=== PATIENT | female | born 1945 | race Caucasian/White ===

== ENCOUNTER 2016-11-15 20:58 | Inpatient (IN) | payer MEDICARE, BC ==
[~2016-11-15] VITALS: Ht 152.4 cm; Wt 59.4 kg
[~2016-11-15 20:58] MED LIST: ATEN50TA PO; BENZ2TAB5 PO; CARB1TAB20 PO; CHOL10003 PO; FAMO20TA5 PO; FURO-68 PO; FURO20TA3 PO; LEVO500T8 PO; LISI10TA2 PO; OLAN5TAB9 PO; POTA10CA PO; SERT25TA4 PO
--- NOTE | 2016-11-15 21:27 | PHYS DOC ---
Past Medical History Past Medical History: Anxiety, Depression, Hypertension, Schizophrenia, Other Additional Past Medical Histor: Dysphagia - resolved., poss chf, [facility] Past Surgical History: Other Additional Past Surgical Histo: Peg tube placement and removal, bilat pedal edema Alcohol Use: None Drug Use: None Adult General Chief Complaint Chief Complaint: VAGINAL BLEEDING HPI HPI Patient is a 70 year old female who presents with vaginal bleeding. Patient reports onset of bleeding about one hour prior to arrival. EMS stated at least 500 mL of blood had pooled in depends underwear. Denies associated abdominal pain. Denies fevers or chills, nausea or vomiting, diarrhea, dysuria or hematuria. Initially she thought she might be having blood in her stool. She has previous history of vaginal bleeding with admission here about one year ago. At that time the records indicate there was concern for endometrial cancer. Patient unsure of ultimate findings. Denies use of blood thinners. PCP is Dr. Luz. Review of Systems Review of Systems Constitutional: Denies fever or chills Eyes: Denies change in visual acuity HENT: Denies nasal congestion or sore throat Respiratory: Denies cough or shortness of breath Cardiovascular: Denies chest pain or edema GI: Denies abdominal pain, nausea, vomiting, bloody stools or diarrhea : Denies dysuria or hematuria , reports vaginal bleeding Musculoskeletal: Denies back pain or joint pain Integument: Denies rash or skin lesions Neurologic: Denies headache, focal weakness or sensory changes Current Medications Current Medications Current Medications Medications (Trade) Dose Ordered Sig/Zacarias Start Time Stop Time Status Last Admin Dose Admin Sodium Chloride (Iv Sodium Chloride 0.9% 500ml Bag) 500 ml @ 500 mls/hr 1X ONCE 11/15/16 21:30 11/15/16 22:29 DC 11/15/16 21:30 500 MLS/HR Allergies Allergies Allergies Coded Allergies Type Severity Reaction Last Updated Verified No Known Drug Allergies 06/03/16 No Physical Exam Physical Exam Constitutional: Well developed, well nourished, no acute distress, non-toxic appearance. tardive dyskinesia. HENT: Normocephalic, atraumatic, bilateral external ears normal, oropharynx moist, nose normal. Eyes: conjunctiva normal, no discharge. Neck: supple, no stridor. Cardiovascular: RRR 70s at time of my exam, no murmurs, no edema. Lungs & Thorax: LCTAB, no wheezing, no respiratory distress. Abdomen: soft, nontender, nondistended. : unable to comply with pelvic exam but there is obvious bleeding from the vagina. Skin: Warm, dry, no erythema, no rash. Back: No tenderness, no CVA tenderness. Extremities: No tenderness, no edema. Neurologic: tardive dyskinesia. Alert and oriented X 3, no focal deficits noted. Psychologic: Affect normal, judgement normal, mood normal. Current Patient Data Vital Signs Vital Signs Date Time Temp Pulse Resp B/P Pulse Ox O2 Delivery O2 Flow Rate FiO2 11/15/16 20:58 97.3 102 24 114/74 98 Nasal Cannula 2 97.3 Lab Values Laboratory Tests Test 11/15/16 21:18 11/15/16 21:25 Urine Collection Type Unknown Urine Color Yellow Urine Clarity Turbid Urine pH 8.0 Urine Specific [place] 1.015 Urine Protein 30mg/dL (NEG-TRACE) Urine Glucose (UA) Negativemg/dL (NEG) Urine Ketones (Stick) Negativemg/dL (NEG) Urine Blood Large (NEG) Urine Nitrite Negative (NEG) Urine Bilirubin Negative (NEG) Urine Urobilinogen Dipstick 0.2mg/dL (0.2 mg/dL) Urine Leukocyte Esterase Large (NEG) Urine RBC 11-20/HPF (0-2) Urine WBC 11-20/HPF (0-4) Urine Bacteria Many/HPF (0-FEW) White Blood Count 12.6x10^3/uL (4.0-11.0) H Red Blood Count 4.72x10^6/uL (3.50-5.40) Hemoglobin 13.7g/dL (12.0-15.5) Hematocrit 42.0% (36.0-47.0) Mean Corpuscular Volume 89fL (79-100) Mean Corpuscular Hemoglobin 29pg (25-35) Mean Corpuscular Hemoglobin Concent 33g/dL (31-37) Red Cell Distribution Width 13.8% (11.5-14.5) Platelet Count 296x10^3/uL (140-400) Neutrophils (%) (Auto) 77% (31-73) H Lymphocytes (%) (Auto) 16% (24-48) L Monocytes (%) (Auto) 6% (0-9) Eosinophils (%) (Auto) 2% (0-3) Basophils (%) (Auto) 1% (0-3) Neutrophils # (Auto) 9.6x10^3uL (1.8-7.7) H Lymphocytes # (Auto) 2.0x10^3/uL (1.0-4.8) Monocytes # (Auto) 0.7x10^3/uL (0.0-1.1) Eosinophils # (Auto) 0.2x10^3/uL (0.0-0.7) Basophils # (Auto) 0.1x10^3/uL (0.0-0.2) Prothrombin Time 13.1SEC (11.7-14.0) Prothrombin Time INR 1.1 (0.8-1.1) PTT 34SEC (24-38) Stool Occult Blood Positive (NEG) Sodium Level 142mmol/L (136-145) Potassium Level 5.1mmol/L (3.5-5.1) Chloride Level 106mmol/L (98-107) Carbon Dioxide Level 28mmol/L (21-32) Anion Gap 8 (6-14) Blood Urea Nitrogen 11mg/dL (7-20) Creatinine 0.9mg/dL (0.6-1.0) Estimated GFR (Cockcroft-Gault) 61.5 BUN/Creatinine Ratio 12 (6-20) Glucose Level 137mg/dL (70-99) H Calcium Level 9.8mg/dL (8.5-10.1) Total Bilirubin 0.3mg/dL (0.2-1.0) Aspartate Amino Transferase (AST) 23U/L (15-37) Alanine Aminotransferase (ALT) 16U/L (14-59) Alkaline Phosphatase 79U/L (46-116) Total Protein 7.7g/dL (6.4-8.2) Albumin 3.1g/dL (3.4-5.0) L Albumin/Globulin Ratio 0.7 (1.0-1.7) L Laboratory Tests 11/15/16 21:25 Laboratory Tests 11/15/16 21:25 EKG EKG [] Radiology/Procedures Radiology/Procedures [] Course & Med Decision Making Course & Med Decision Making Pertinent Labs and Imaging studies reviewed. (See chart for details) Patient presents with postmenopausal vaginal bleeding. Fecal occult was positive on exam clearly the source appears to be vaginal. Hemoglobin was stable , minimal ongoing blood loss, vitals within normal limits. I do believe she requires admission due to inability to care for herself or identify worsening clinical condition requiring reevaluation. Discussed with Dr. James who had seen the patient during prior admission. He recommended transfer to [facility] as additional workup had been completed at that facility. I discussed with the on-call physician for her gynecology/oncology who recommended no indication for transfer at this time. Discussed with Dr. Tolliver who agrees to admit to inpatient status. Patient is admitted in stable condition. [] Dragon Disclaimer Dragon Disclaimer This electronic medical record was generated, in whole or in part, using a voice recognition dictation system. Departure Departure Impression: Primary Impression: Vaginal bleeding Disposition: ADMITTED INPATIENT Admitting Physician: Alka Tolliver Condition: STABLE Referrals: NON,STAFF (PCP) SOHA CAMPOS MD Nov 15, 2016 21:27
[2016-11-15] MEDS ORDERED: IV NORMAL SALINE 500ML BAG 500 ML IV ONE (21:30)
[2016-11-15 21:41] LABS: BASO # 0.1 x10^3/uL (0.0-0.2); BASO % 1 % (0-3); EOS % 2 % (0-3); HEMOGLOBIN 13.7 g/dL (12.0-15.5); LYMPH % 16 % (24-48); MEAN CORPUSCULAR HEMOGLOBIN 29 pg (25-35); MEAN CORPUSCULAR HGB CONC 33 g/dL (31-37); MEAN CORPUSCULAR VOLUME 89 fL (79-100); MONO % 6 % (0-9); NEUT % 77 % (31-73); PLATELET COUNT 296 x10^3/uL (140-400); RED BLOOD COUNT 4.72 x10^6/uL (3.50-5.40); RED CELL DISTRIBUTION WIDTH 13.8 % (11.5-14.5); WHITE BLOOD COUNT 12.6 x10^3/uL (4.0-11.0)
[2016-11-15 21:43] LABS: BILIRUBIN,URINE NEGATIVE (NEG); GLUCOSE,URINE NEGATIVE (NEG); NITRITE,URINE NEGATIVE (NEG); PROTEIN,URINE 30 mg/dL (NEG-TRACE); UROBILINOGEN,URINE 0.2 mg/dL (0.2 mg/dL)
[2016-11-15 21:49] LABS: CALCIUM 9.8 mg/dL (8.5-10.1); CREATININE 0.9 mg/dL (0.6-1.0); GFR 61.5; POTASSIUM 5.1 mmol/L (3.5-5.1)
[2016-11-15 21:51] LABS: INR 1.1 (0.8-1.1); PROTHROMBIN TIME PATIENT 13.1 SEC (11.7-14.0)
[2016-11-15 21:54] LABS: NEG OBC FOB NEG; POS OBC FOB POS
[2016-11-15 21:55] LABS: ALBUMIN 3.1 g/dL (3.4-5.0); ALBUMIN/GLOBULIN RATIO 0.7 (1.0-1.7); TOTAL BILIRUBIN 0.3 mg/dL (0.2-1.0); TOTAL PROTEIN 7.7 g/dL (6.4-8.2)
[2016-11-15 22:21] LABS: BACTERIA,URINE MANY /HPF (0-FEW)
--- NOTE | 2016-11-15 23:05 | RAD ---
PROCEDURE Pelvic ultrasound to include transabdominal and transvaginal imaging 11/15/2016 HISTORY Heavy vaginal bleeding. The patient is postmenopausal. TECHNIQUE Using the distended urinary bladder as a sonographic window, a real-time ultrasound examination of the pelvis was performed digitally in attempt to better evaluate the uterus and adnexa, a transvaginal ultrasound study was performed. Multiple images were obtained. FINDINGS Comparison study is dated 11/29/2015. The uterus is enlarged. It measures 14.7 x 12.2 x 10.0 centimeters in longitudinal, transverse, and AP dimensions. The uterus is very heterogeneous which may reflect diffuse fibroid involvement. A well-defined endometrial echo complex is not visualized. Fluid and echogenic debris which likely reflects blood products are seen within the cervix. Neither ovary is visualized. No adnexal mass is seen. No free fluid is noted. IMPRESSION The uterus is enlarged and heterogeneous suggestive of diffuse fibroid involvement. The endometrial echo complex is not well-defined as outlined above. Electronically signed by: Jarred Hill MD (Nov 15, 2016 23:04:32)
[2016-11-15] MEDS ORDERED: ONDANSETRON PF 4 MG/2 ML VIAL. IV PRN (23:45)
[2016-11-15] MEDS ORDERED: MORPHINE SULFATE 2 MG/ML DISP.SYRIN. IV PRN (23:45)
[2016-11-15] MEDS ORDERED: ACETAMINOPHEN 325 MG TABLET. PO PRN (23:45)
[2016-11-16] VITALS (7 sets, daily range): BP systolic 94–128; BP diastolic 48–63
--- NOTE | 2016-11-16 00:05 | ACF ---
Admission Forms Criteria OBSTETRIC AND GYNECOLOGIC DISEASE ED [facility] Clinical Indications for Admission to Inpatient Care (Place 'X' for any and all applicable criteria): Hospital admission is needed for appropriate care of the patient because of 1 or more of the following (1)(2)(3): [ ]I. Hemodynamic instability, as indicated by 1 or more of the following (1)( 2)(3)(4)(5): [ ]a) Vital signs or other findings not as expected for chronic patient condition or baseline [ ]b) Instability indicated by 1 or more of the following: [ ]i) Hypotension [ ]ii) Symptomatic tachycardia unresponsive to treatment (eg, analgesia, fluids, sedation as indicated) [ ]iii) Inadequate perfusion indicated by 1 or more of the following: [ ]A. Lactic acidosis (greater than 2 mmol/ L) [ ]B. New abnormal capillary refill ( greater than 3 seconds) [ ]C. Reduced urine output [ ]D. New altered mental status [ ]iv) Orthostatic vital sign changes unresponsive to treatment (eg, fluids) [ ]v) Multiple IV fluid boluses required to maintain adequate blood pressure or perfusion [ ]vi) IV inotropic or vasopressor medication required to maintain adequate blood pressure or perfusion [ ]II. Obstetric infection requiring hospitalization indicated by 1 or more of the following(13)(14): [ ]a) Chorioamnionitis [ ]b) Endometritis (except mild endometritis) [ ]c) Pelvic abscess [ ]d) Peritonitis [ ]e) Septic pelvic thrombophlebitis [ ]III. Amniotic fluid or pulmonary embolism(4)(5)(6) [ ]IV. Suspected peritonitis or ectopic requiring monitoring beyond scope of 24 hours or observation care(7)(8) [ ]V. compromise requiring hospitalization indicated by ALL of the following(9)(10): [ ]a) compromise indicated by 1 or more of the following(11): [ ]i) Abnormal heart rate monitoring [ ]ii) Abnormal contraction stress test [ ]iii) Abnormal biophysical profile [ ]iv) Abnormal Doppler flow in vessels (ie, Doppler velocimetry) (12) [ ]b) Persistence of compromise indicators during evaluation and observation monitoring [ ]. Ovarian hyperstimulation syndrome requiring hospitalization[A] indicated by ALL of the following(15): [ ]a) Recent ovarian stimulation with gonadotropins, or evidence on ultrasound of spontaneous emergence of large number of ovarian follicles [ ]b) Evidence of severe ovarian hyperstimulation syndrome indicated by 1 or more of the following: [ ]i) Abdominal pain unresponsive to oral therapy [ ]ii) Acute respiratory distress syndrome [ ]iii) Electrolyte imbalance ( eg, hyponatremia, hyperkalemia) [ ]iv) Elevated liver enzymes [ ]v) Evidence of thromboembolism [ ]vi) Hemoconcentration (hematocrit greater than 45 % (0.45)) [ ]vii) Inability to maintain oral intake adequate to prevent hemoconcentration [ ]viii) Marked hypotension from baseline (eg, SBP 20 mmHg below patients usual pressure) [ ]ix) Oliguria or anuria [ ]x) Ovarian torsion [ ]xi) Pleural or pericardial effusion on x-ray or echocardiogram [ ]xii) Rapid increase in serum creatinine to greater than 1.2 mg/dL (106 micromoles/L) or creatinine clearance less than 50 mL/min/1.73m2 (0.84 mL/ sec/1.73m2) [ ]xiii) Ruptured ovarian cyst with hemorrhage [ ]xiv) Severe abdominal pain or peritoneal signs [ ]xv) Tense ascites that cannot be managed with paracentesis in outpatient setting [ ]VII.Pelvic infection requiring hospitalization indicated by 1 or more of the following (16): [ ]a) Outpatient treatment has failed or is not appropriate (eg, inpatient monitoring required) [ ]b) Pelvic abscess [ ]c) Surgical emergency cannot be excluded (eg, rigid abdomen) [ ]d) Vomiting precluding outpatient and observation care management VIII. loss complications requiring inpatient medical treatment indicated by 1 or more of the following (4)(7)(9): [ ]a) Fever [ ]b) Peritonitis [ ]c) Sepsis [ ]d) Severe abdominal pain [ ]IX. or patient requiring monitoring for severe heart failure, pulmonary disease, or other comorbid condition (eg, peripartum cardiomyopathy) (4)(17) [ ]X. patient with rupture of membranes requiring hospitalization indicated by ANY ONE of the following: [ ]a) Chorioamnionitis, cloudy amniotic fluid, or other evidence of infection [ ]b) compromise or other need for monitoring (11) [ ]c) Gestation longer than 23 weeks and ANY ONE of the following: [ ]i) Abnormal (noncephalic) presentation [ ]ii) Inadequate home environment (eg, home too far from hospital, unable to rapidly return to hospital) [ ]d) Temperature greater than 100.4 degrees F (38 degrees C)( oral) [ ]e) Threatened labor requiring monitoring beyond scope (eg, over 24 hours) of observation Care [ ] XI. complications, including severe lacerations, infections, or retained placenta (19) [ ] XII.Uterine bleeding with high-risk features indicated by ANY ONE of the following (4): [ ]a) Active major hemorrhage (eg, hemorrhage) [ ]b) Coagulopathy with active bleeding [ ]c) Gestational trophoblastic disease (eg, molar ) (20 ) [ ]d) (longer than 23 weeks) and ANY ONE of the following: [ ]i) Pain [ ]ii) Placental abruption, known or suspected [ ]iii) Placenta accrete, known or suspected(21) [ ]iv) Placenta previa, known or suspected [ ]v) Vasa previa [ ]e) Severe anemia [X]XIII. Obstetric or Gynecologic Disease, condition or symptom for which ANY ONE of the following: [X]a) Emergency and observation care have failed or are not considered appropriate ( Also use General Criteria: Observation Care Criteria as appropriate) [ ]b) Presence of a General Admission Criteria or Pediatric General Admission Criteria The original [facility] [employer] content created by [facility] [employer] has been revised. The portions of the content which have been revised are identified through the use of italic text or in bold, and [facility] has neither reviewed nor approved the modified material.All other unmodified content is copyright [facility]. Please see references footnoted in the original [facility] edition 2016 Admission Criteria Met?: Yes GERDA RAMÍREZ Nov 16, 2016 00:05
[2016-11-16] MEDS ORDERED: CEFTRIAXONE 1GM IVPB FOR OMNI 50 ML IV ONE (01:00)
[2016-11-16 05:07] LABS: BASO # 0.1 x10^3/uL (0.0-0.2); BASO % 1 % (0-3); EOS % 2 % (0-3); HEMOGLOBIN 11.8 g/dL (12.0-15.5); LYMPH # 2.1 x10^3/uL (1.0-4.8); LYMPH % 20 % (24-48); MEAN CORPUSCULAR HEMOGLOBIN 29 pg (25-35); MEAN CORPUSCULAR HGB CONC 33 g/dL (31-37); MEAN CORPUSCULAR VOLUME 89 fL (79-100); MONO % 7 % (0-9); NEUT % 71 % (31-73); PLATELET COUNT 214 x10^3/uL (140-400); RED BLOOD COUNT 4.03 x10^6/uL (3.50-5.40); RED CELL DISTRIBUTION WIDTH 13.3 % (11.5-14.5); WHITE BLOOD COUNT 10.4 x10^3/uL (4.0-11.0)
[2016-11-16 05:32] LABS: CALCIUM 9.1 mg/dL (8.5-10.1); CREATININE 0.8 mg/dL (0.6-1.0); GFR 70.5; POTASSIUM 3.8 mmol/L (3.5-5.1)
[2016-11-16] MEDS ORDERED: BENZTROPINE MESYLATE 1 MG TABLET. ONE ×2 (09:00)
--- NOTE | 2016-11-16 09:14 | PDOC1 ---
History and Physical Date of Admission Date of Admission DATE: 11/16/16 TIME: 09:05 Identification/Chief Complaint Chief Complaint bleeding in depends Source Source: Chart review, Patient History of Present Illness History of Present Illness Ms. Brothers is a 70 year old female, homebound, almost bedbound due to parkinsons disease, with possible tardive dyskinesia she reports from prior Psych meds. She lives at home with her 2 brothers who provide her care. She was admitted with vaginal bleeding, but she is currently wearing a diaper, and bleeding has stopped. IT was reported as a brisk onset of heavy bleeding pooled in depends underwear. No abd pain or fevers or chills, nausea or vomiting, diarrhea. She is awake and alert and eating breakfast with assist. She has almost no use of her hands. . PCP is reported as Dr. Ty Past Medical History Cardiovascular: No pertinent hx Pulmonary: No pertinent hx CENTRAL NERVOUS SYSTEM: Other (TD) Hepatobiliary: No pertinent hx Psych: No pertinent hx Musculoskeletal: low back pain Rheumatologic: No pertinent hx Infectious disease: No pertinent hx ENT: No pertinent hx Renal/: No pertinent hx Past Surgical History Past Surgical History: No pertinent history Family History Family History: No Significant Social History Smoke: No ALCOHOL: none Drugs: None Current Problem List Problem List Problems Medical Problems: (1) Vaginal bleeding Status: Acute Problems: Current Medications Current Medications Current Medications Sodium Chloride (Iv Sodium Chloride 0.9% 500ml Bag) 500 ml @ 500 mls/hr 1X ONCE IV Last administered on 11/15/16 21:30; Start 11/15/16 at 21:30; Stop at 22:29; Status DC Ondansetron HCl (Zofran) 4 mg PRN Q8HRS PRN IV NAUSEA/VOMITING; Start 11/15/16 at 23:45; Stop 11/16/16 at 23:44 Morphine Sulfate 2 mg PRN Q2HR PRN IV SEVERE PAIN; Start 11/15/16 at 23:45; Stop 11/16/16 at 23:44 Acetaminophen 650 mg 650 mg PRN Q4HRS PRN PO FEVER; Start 11/15/16 at 23:45; Stop 11/16/16 at 23:44 Ceftriaxone Sodium (Rocephin 1gm Ivpb For Omni) 50 ml @ 100 mls/hr 1X ONCE IV Last administered on 4/4/17at 03:08; Start 11/16/16 at 01:00; Stop 11/16/16 at 01:29; Status DC Active Scripts Active Reported Famotidine 20 Mg Tablet 10 Mg PO DAILY Vitamin D3 (Cholecalciferol (Vitamin D3)) 1,000 Unit Tablet 1,000 Unit PO DAILY Furosemide 20 Mg Tablet 20 Mg PO DAILY Sertraline Hcl 25 Mg Tablet 25 Mg PO DAILY Atenolol 50 Mg Tablet 50 Mg PO DAILY Olanzapine 5 Mg Tablet 5 Mg PO DAILY Benztropine Mesylate 2 Mg Tablet 2 Mg PO BID Carbidopa-Levodopa 10-100 Tab (Carbidopa/Levodopa) 1 Each Tablet 1 Each PO TID Allergies Allergies: Coded Allergies: No Known Drug Allergies (Unverified , 06/03/16) ROS General: No: Appetite, Chills, Fatigue, Malaise, Night Sweats, Other PSYCHOLOGICAL ROS: No: Anxiety, Behavioral Disorder, Concentration difficultie , Decreased libido, Depression, Disorientation, Hallucinations, Hostility, Irritablity, Memory difficulties, Mood Swings, Obsessive thoughts, Other, Physical abuse, Sexual abuse, Sleep disturbances, Suicidal ideation Eyes: No Blurry vision, No Decreased vision, No Double vision, No Dry eyes, No Excessive tearing, No Eye Pain, No Itchy Eyes, No Loss of vision, No Other, No Photophobia, No Scotomata, No Uses contacts, No Uses glasses HEENT: No: Epistaxis, Heacaches, Hearing change, Nasal congestion, Nasal discharge, Oral lesions, Other, Sinus pain, Sneezing, Snoring, Sore Throat, Tinnitus, Vertigo, Visual Changes, Vocal changes Respiratory: No: Cough, Hemoptysis, Orthopnea, Other, Pleuritic Pain, SOB with excertion, Shortness of breath, Sputum Changes, Stridor, Tachypnea, Wheezing Cardiovascular: No Chest Pain, No Edema, No Lt Headedness, No Orthopnea, No Other, No Palpitations, No Paroxysmal Noc. Dyspnea Gastrointestinal: No Abdominal Pain, No Constipation, No Diarrhea, No Hematochezia, No Melena, No Nausea, No Other, No Vomiting Genitourinary: No , No , No , No , No , No , No , No Discharge, No Dysuria, No Flank Pain, No Frequency, No Hematuria, No Incontinence, No Other, No Pain, No Retention, No Urgency Musculoskeletal: Yes Gait Disturbance, Yes Joint Pain, Yes Joint Stiffness, Yes Muscular Weakness Neurological: Yes Gait Disturbance, No Behavorial Changes, No Bowel/Bladder ControlChng, No Confusion, No Dizziness, No Headaches, No Impaired Coord/balance, No Memory Loss, No Numbness/ Tingling, No Other, No Seizures, No Speech Problems, No Tremors, No Visual Changes, No Weakness Skin: Yes Dry Skin Physical Exam General: Alert, Oriented X3, Cooperative HEENT: Atraumatic, PERRLA Lungs: Clear to auscultation Heart: S1S2 Abdomen: Normal bowel sounds, Soft Extremities: No clubbing, No edema Skin: No breakdown Neuro: Normal speech, Sensation intact, Other (dyskinetic, rapid tremor, 10 Hz) Vitals Vitals Vital Signs Date Time Temp Pulse Resp B/P Pulse Ox O2 Delivery O2 Flow Rate FiO2 11/16/16 07:00 97.8 57 16 122/53 100 Nasal Cannula 2.0 97.8 Labs Labs Laboratory Tests Test 11/15/16 21:18 11/15/16 21:25 11/16/16 04:23 Urine Collection Type Unknown Urine Color Yellow Urine Clarity Turbid Urine pH 8.0 Urine Specific [place] 1.015 Urine Protein 30mg/dL (NEG-TRACE) Urine Glucose (UA) Negativemg/dL (NEG) Urine Ketones (Stick) Negativemg/dL (NEG) Urine Blood Large (NEG) Urine Nitrite Negative (NEG) Urine Bilirubin Negative (NEG) Urine Urobilinogen Dipstick 0.2mg/dL (0.2 mg/dL) Urine Leukocyte Esterase Large (NEG) Urine RBC 11-20/HPF (0-2) Urine WBC 11-20/HPF (0-4) Urine Bacteria Many/HPF (0-FEW) White Blood Count 12.6x10^3/uL (4.0-11.0) 10.4x10^3/uL (4.0-11.0) Red Blood Count 4.72x10^6/uL (3.50-5.40) 4.03x10^6/uL (3.50-5.40) Hemoglobin 13.7g/dL (12.0-15.5) 11.8g/dL (12.0-15.5) Hematocrit 42.0% (36.0-47.0) 36.0% (36.0-47.0) Mean Corpuscular Volume 89fL (79-100) 89fL (79-100) Mean Corpuscular Hemoglobin 29pg (25-35) 29pg (25-35) Mean Corpuscular Hemoglobin Concent 33g/dL (31-37) 33g/dL (31-37) Red Cell Distribution Width 13.8% (11.5-14.5) 13.3% (11.5-14.5) Platelet Count 296x10^3/uL (140-400) 214x10^3/uL (140-400) Neutrophils (%) (Auto) 77% (31-73) 71% (31-73) Lymphocytes (%) (Auto) 16% (24-48) 20% (24-48) Monocytes (%) (Auto) 6% (0-9) 7% (0-9) Eosinophils (%) (Auto) 2% (0-3) 2% (0-3) Basophils (%) (Auto) 1% (0-3) 1% (0-3) Neutrophils # (Auto) 9.6x10^3uL (1.8-7.7) 7.4x10^3uL (1.8-7.7) Lymphocytes # (Auto) 2.0x10^3/uL (1.0-4.8) 2.1x10^3/uL (1.0-4.8) Monocytes # (Auto) 0.7x10^3/uL (0.0-1.1) 0.7x10^3/uL (0.0-1.1) Eosinophils # (Auto) 0.2x10^3/uL (0.0-0.7) 0.2x10^3/uL (0.0-0.7) Basophils # (Auto) 0.1x10^3/uL (0.0-0.2) 0.1x10^3/uL (0.0-0.2) Prothrombin Time 13.1SEC (11.7-14.0) Prothromb Time International Ratio 1.1 (0.8-1.1) Activated Partial Thromboplast Time 34SEC (24-38) Stool Occult Blood Positive (NEG) Sodium Level 142mmol/L (136-145) 147mmol/L (136-145) Potassium Level 5.1mmol/L (3.5-5.1) 3.8mmol/L (3.5-5.1) Chloride Level 106mmol/L (98-107) 111mmol/L (98-107) Carbon Dioxide Level 28mmol/L (21-32) 29mmol/L (21-32) Anion Gap 8 (6-14) 7 (6-14) Blood Urea Nitrogen 11mg/dL (7-20) 12mg/dL (7-20) Creatinine 0.9mg/dL (0.6-1.0) 0.8mg/dL (0.6-1.0) Estimated GFR (Cockcroft-Gault) 61.5 70.5 BUN/Creatinine Ratio 12 (6-20) Glucose Level 137mg/dL (70-99) 104mg/dL (70-99) Calcium Level 9.8mg/dL (8.5-10.1) 9.1mg/dL (8.5-10.1) Total Bilirubin 0.3mg/dL (0.2-1.0) Aspartate Amino Transf (AST/SGOT) 23U/L (15-37) Alanine Aminotransferase (ALT/SGPT) 16U/L (14-59) Alkaline Phosphatase 79U/L (46-116) Total Protein 7.7g/dL (6.4-8.2) Albumin 3.1g/dL (3.4-5.0) Albumin/Globulin Ratio 0.7 (1.0-1.7) Laboratory Tests Test 11/15/16 21:18 11/15/16 21:25 11/16/16 04:23 Urine Collection Type Unknown Urine Color Yellow Urine Clarity Turbid Urine pH 8.0 Urine Specific [place] 1.015 Urine Protein 30mg/dL (NEG-TRACE) Urine Glucose (UA) Negativemg/dL (NEG) Urine Ketones (Stick) Negativemg/dL (NEG) Urine Blood Large (NEG) Urine Nitrite Negative (NEG) Urine Bilirubin Negative (NEG) Urine Urobilinogen Dipstick 0.2mg/dL (0.2 mg/dL) Urine Leukocyte Esterase Large (NEG) Urine RBC 11-20/HPF (0-2) Urine WBC 11-20/HPF (0-4) Urine Bacteria Many/HPF (0-FEW) White Blood Count 12.6x10^3/uL (4.0-11.0) 10.4x10^3/uL (4.0-11.0) Red Blood Count 4.72x10^6/uL (3.50-5.40) 4.03x10^6/uL (3.50-5.40) Hemoglobin 13.7g/dL (12.0-15.5) 11.8g/dL (12.0-15.5) Hematocrit 42.0% (36.0-47.0) 36.0% (36.0-47.0) Mean Corpuscular Volume 89fL (79-100) 89fL (79-100) Mean Corpuscular Hemoglobin 29pg (25-35) 29pg (25-35) Mean Corpuscular Hemoglobin Concent 33g/dL (31-37) 33g/dL (31-37) Red Cell Distribution Width 13.8% (11.5-14.5) 13.3% (11.5-14.5) Platelet Count 296x10^3/uL (140-400) 214x10^3/uL (140-400) Neutrophils (%) (Auto) 77% (31-73) 71% (31-73) Lymphocytes (%) (Auto) 16% (24-48) 20% (24-48) Monocytes (%) (Auto) 6% (0-9) 7% (0-9) Eosinophils (%) (Auto) 2% (0-3) 2% (0-3) Basophils (%) (Auto) 1% (0-3) 1% (0-3) Neutrophils # (Auto) 9.6x10^3uL (1.8-7.7) 7.4x10^3uL (1.8-7.7) Lymphocytes # (Auto) 2.0x10^3/uL (1.0-4.8) 2.1x10^3/uL (1.0-4.8) Monocytes # (Auto) 0.7x10^3/uL (0.0-1.1) 0.7x10^3/uL (0.0-1.1) Eosinophils # (Auto) 0.2x10^3/uL (0.0-0.7) 0.2x10^3/uL (0.0-0.7) Basophils # (Auto) 0.1x10^3/uL (0.0-0.2) 0.1x10^3/uL (0.0-0.2) Prothrombin Time 13.1SEC (11.7-14.0) Prothromb Time International Ratio 1.1 (0.8-1.1) Activated Partial Thromboplast Time 34SEC (24-38) Stool Occult Blood Positive (NEG) Sodium Level 142mmol/L (136-145) 147mmol/L (136-145) Potassium Level 5.1mmol/L (3.5-5.1) 3.8mmol/L (3.5-5.1) Chloride Level 106mmol/L (98-107) 111mmol/L (98-107) Carbon Dioxide Level 28mmol/L (21-32) 29mmol/L (21-32) Anion Gap 8 (6-14) 7 (6-14) Blood Urea Nitrogen 11mg/dL (7-20) 12mg/dL (7-20) Creatinine 0.9mg/dL (0.6-1.0) 0.8mg/dL (0.6-1.0) Estimated GFR (Cockcroft-Gault) 61.5 70.5 BUN/Creatinine Ratio 12 (6-20) Glucose Level 137mg/dL (70-99) 104mg/dL (70-99) Calcium Level 9.8mg/dL (8.5-10.1) 9.1mg/dL (8.5-10.1) Total Bilirubin 0.3mg/dL (0.2-1.0) Aspartate Amino Transf (AST/SGOT) 23U/L (15-37) Alanine Aminotransferase (ALT/SGPT) 16U/L (14-59) Alkaline Phosphatase 79U/L (46-116) Total Protein 7.7g/dL (6.4-8.2) Albumin 3.1g/dL (3.4-5.0) Albumin/Globulin Ratio 0.7 (1.0-1.7) VTE Prophylaxis Ordered VTE Prophylaxis Devices: Yes VTE Pharmacological Prophylaxi: Contraindicated Assessment/Plan Assessment/Plan Acute blood loss in depends underwear, She is unsure of source, no pain brisk onset and seems to have stopped Prior HIstory of vaginal bleeding, and prior concern for possible endometrial cancer 1 year ago, will consult Risk Assessment Analyst Brisk onset and resolution, could be lower GI bleed, not melena, bright red per rectum, but has stopped, no stool, no diarrhea, no abd pain, UTI, rocephin mild malnutrition Parkinsons, depression or anxiety, she reports as tardive dyskinesia, weakness and debility ERIC MORAES MD Nov 16, 2016 09:14
--- NOTE | 2016-11-16 11:07 | PDOC2 ---
GI CONSULT Reason For Consult: Possible GI bleed, reported as vaginal HPI: HPI: History from chart. 70 y/o female w/ PMH as below. Currently drowsy, does not participate in interview other than to deny pain. Note previously awake/alert to talk w/ Dr. John. Bedbound at home, cared for by brothers, admitted w/ ? vaginal bleeding - blood noted in diaper. Admitted a year ago for same, had endometrial biopsy (no endometrial tissue, no cancer on pathology). At that time cancer thought to be most likely diagnosis, was to see [facility] for hysteroscopy. This admission had pelvic US w/ likely fibroids. [facility] to see later today. Per RN - has noted vaginal bleeding around catheter, had a BM yesterday - not sure if bloody. Eating. Hgb from 13.7 to 11.8, normal BUN, heme + stool. Note h/o attempted PEG placement in 08/2013 for dysphagia; unable to place w/ hiatal hernia. PMH: PMH: tardive dyskinesia, HTN, Parkinson's, psych problems including depression, CHF, retinopathy, tinnitus, dysphagia w/ previous attempted PEG placement, excision of LLE mass (path w/o malignancy), hiatal hernia Social History: Smoke: No ALCOHOL: none Drugs: None ROS: Difficult to obtain. Denies pain. VItals: Vitals: Vital Signs Date Time Temp Pulse Resp B/P Pulse Ox O2 Delivery O2 Flow Rate FiO2 11/16/16 08:30 Nasal Cannula 2.0 11/16/16 07:00 97.8 57 16 122/53 100 97.8 Labs: Labs: Laboratory Tests Test 11/15/16 21:18 11/15/16 21:25 11/16/16 04:23 Urine Collection Type Unknown Urine Color Yellow Urine Clarity Turbid Urine pH 8.0 Urine Specific [place] 1.015 Urine Protein 30mg/dL (NEG-TRACE) Urine Glucose (UA) Negativemg/dL (NEG) Urine Ketones (Stick) Negativemg/dL (NEG) Urine Blood Large (NEG) Urine Nitrite Negative (NEG) Urine Bilirubin Negative (NEG) Urine Urobilinogen Dipstick 0.2mg/dL (0.2 mg/dL) Urine Leukocyte Esterase Large (NEG) Urine RBC 11-20/HPF (0-2) Urine WBC 11-20/HPF (0-4) Urine Bacteria Many/HPF (0-FEW) White Blood Count 12.6x10^3/uL (4.0-11.0) 10.4x10^3/uL (4.0-11.0) Red Blood Count 4.72x10^6/uL (3.50-5.40) 4.03x10^6/uL (3.50-5.40) Hemoglobin 13.7g/dL (12.0-15.5) 11.8g/dL (12.0-15.5) Hematocrit 42.0% (36.0-47.0) 36.0% (36.0-47.0) Mean Corpuscular Volume 89fL (79-100) 89fL (79-100) Mean Corpuscular Hemoglobin 29pg (25-35) 29pg (25-35) Mean Corpuscular Hemoglobin Concent 33g/dL (31-37) 33g/dL (31-37) Red Cell Distribution Width 13.8% (11.5-14.5) 13.3% (11.5-14.5) Platelet Count 296x10^3/uL (140-400) 214x10^3/uL (140-400) Neutrophils (%) (Auto) 77% (31-73) 71% (31-73) Lymphocytes (%) (Auto) 16% (24-48) 20% (24-48) Monocytes (%) (Auto) 6% (0-9) 7% (0-9) Eosinophils (%) (Auto) 2% (0-3) 2% (0-3) Basophils (%) (Auto) 1% (0-3) 1% (0-3) Neutrophils # (Auto) 9.6x10^3uL (1.8-7.7) 7.4x10^3uL (1.8-7.7) Lymphocytes # (Auto) 2.0x10^3/uL (1.0-4.8) 2.1x10^3/uL (1.0-4.8) Monocytes # (Auto) 0.7x10^3/uL (0.0-1.1) 0.7x10^3/uL (0.0-1.1) Eosinophils # (Auto) 0.2x10^3/uL (0.0-0.7) 0.2x10^3/uL (0.0-0.7) Basophils # (Auto) 0.1x10^3/uL (0.0-0.2) 0.1x10^3/uL (0.0-0.2) Prothrombin Time 13.1SEC (11.7-14.0) Prothromb Time International Ratio 1.1 (0.8-1.1) Activated Partial Thromboplast Time 34SEC (24-38) Stool Occult Blood Positive (NEG) Sodium Level 142mmol/L (136-145) 147mmol/L (136-145) Potassium Level 5.1mmol/L (3.5-5.1) 3.8mmol/L (3.5-5.1) Chloride Level 106mmol/L (98-107) 111mmol/L (98-107) Carbon Dioxide Level 28mmol/L (21-32) 29mmol/L (21-32) Anion Gap 8 (6-14) 7 (6-14) Blood Urea Nitrogen 11mg/dL (7-20) 12mg/dL (7-20) Creatinine 0.9mg/dL (0.6-1.0) 0.8mg/dL (0.6-1.0) Estimated GFR (Cockcroft-Gault) 61.5 70.5 BUN/Creatinine Ratio 12 (6-20) Glucose Level 137mg/dL (70-99) 104mg/dL (70-99) Calcium Level 9.8mg/dL (8.5-10.1) 9.1mg/dL (8.5-10.1) Total Bilirubin 0.3mg/dL (0.2-1.0) Aspartate Amino Transf (AST/SGOT) 23U/L (15-37) Alanine Aminotransferase (ALT/SGPT) 16U/L (14-59) Alkaline Phosphatase 79U/L (46-116) Total Protein 7.7g/dL (6.4-8.2) Albumin 3.1g/dL (3.4-5.0) Albumin/Globulin Ratio 0.7 (1.0-1.7) Allergies: Coded Allergies: No Known Drug Allergies (Unverified , 06/03/16) Medications: Current Medications Medications (Trade) Dose Ordered Sig/Zacarias Route PRN Reason Start Time Stop Time Status Last Admin Dose Admin Sodium Chloride 500 ml @ 500 mls/hr 1X ONCE IV 11/15/16 21:30 11/15/16 22:29 DC 11/15/16 21:30 Ceftriaxone Sodium (Rocephin 1gm Ivpb For Omni) 50 ml @ 100 mls/hr 1X ONCE IV 11/16/16 01:00 11/16/16 01:29 DC 11/16/16 03:08 Imaging: Imaging: Pelvic US IMPRESSION The uterus is enlarged and heterogeneous suggestive of diffuse fibroid involvement. The endometrial echo complex is not well-defined. PE: GEN: NAD HEENT: Atraumatic LUNGS: CTAB anteriorly HEART: RRR ABD: NABS, S/ND/NT EXTREMITY: No edema SKIN: No rashes, no jaundice NEURO/PSYCH: contractures, awakens briefly OTHER: +vaginal bleeding A/P: A/P: Hemoccult positive stool Vaginal bleeding -history of same w/ previous endometrial biopsy, last year had planned to f/u w / [facility] (?) -pelv US w/ likely fibroids, [facility] to see later -- Difficult w/o much history from patient. Await [facility] eval. Observe GI symptoms - ?colonoscopy later. Hopefully she will be more awake later today. GRACIE DUDLEY Nov 16, 2016 11:07
[2016-11-16] MEDS: FUROSEMIDE 20 MG TABLET PO SCH (12:11)
[2016-11-16] MEDS: OLANZAPINE 5 MG TABLET. PO SCH (12:11)
[2016-11-16] MEDS: ATENOLOL 50 MG TABLET. PO SCH (12:12)
[2016-11-16] MEDS: SERTRALINE 25 MG TABLET. PO SCH (12:12)
[2016-11-16] MEDS: CHOLECALCIFEROL (VITAMIN D3) 1,000 UNIT TABLET PO SCH (12:12)
[2016-11-16] MEDS: BENZTROPINE MESYLATE 1 MG TABLET. PO SCH ×2 (12:12→21:58)
[2016-11-16] MEDS: CARBIDOPA/LEVODOPA 10/100MG TABLET PO SCH ×3 (12:12→21:58)
[2016-11-16] MEDS: FAMOTIDINE 20 MG TABLET. PO SCH (12:12)
[2016-11-16] MEDS: CEFTRIAXONE SODIUM 1 GM in IV NORMAL SALINE 50ML 50 ML IV SCH (21:57)
[2016-11-17] VITALS (9 sets, daily range): BP systolic 99–142; BP diastolic 45–83
--- NOTE | 2016-11-17 05:25 | PDOC2 ---
CONSULT Date of Consult Date of Consult DATE: 11/16/16 TIME: 1700 Reason for Consult Reason for Consult: VB/PMB Referring Physician Referring Physician: Vijayo Identification/Chief Complaint Chief Complaint VB/PMB Source Source: Chart review, Patient History of Present Illness Reason for Visit: Acute onset of VB . Per pt has occur before in the past 6 months Past Medical History Cardiovascular: No pertinent hx Pulmonary: No pertinent hx CENTRAL NERVOUS SYSTEM: Other (TD) Hepatobiliary: No pertinent hx Psych: No pertinent hx Musculoskeletal: low back pain Rheumatologic: No pertinent hx Infectious disease: No pertinent hx ENT: No pertinent hx Renal/: No pertinent hx Past Surgical History Past Surgical History: No pertinent history Family History Family History: No Significant Social History No ALCOHOL: none Drugs: None Lives: with Family Domestic Violence: Neg Current Problem List Problem List Problems Medical Problems: (1) Vaginal bleeding Status: Acute Current Medications Current Medications Current Medications Sodium Chloride (Iv Sodium Chloride 0.9% 500ml Bag) 500 ml @ 500 mls/hr 1X ONCE IV Last administered on 11/15/16 21:30; Start 11/15/16 at 21:30; Stop at 22:29; Status DC Ondansetron HCl (Zofran) 4 mg PRN Q8HRS PRN IV NAUSEA/VOMITING; Start 11/15/16 at 23:45; Stop 11/16/16 at 23:44; Status DC Morphine Sulfate 2 mg PRN Q2HR PRN IV SEVERE PAIN; Start 11/15/16 at 23:45; Stop 11/16/16 at 23:44; Status DC Acetaminophen 650 mg 650 mg PRN Q4HRS PRN PO FEVER; Start 11/15/16 at 23:45; Stop 11/16/16 at 23:44; Status DC Ceftriaxone Sodium (Rocephin 1gm Ivpb For Omni) 50 ml @ 100 mls/hr 1X ONCE IV Last administered on 11/16/16 03:08; Start 11/16/16 at 01:00; Stop 11/16/16 at 01:29; Status DC Atenolol (Tenormin) 50 mg DAILY PO Last administered on 11/16/16 12:12; Start 11/16/16 at 09:30 Carbidopa/Levodopa (Sinemet 10/100) 1 tab TID PO Last administered on 11/16/16 21:58; Start 11/16/16 at 09:30 Vitamin D (Vitamin D3) 1,000 unit DAILY PO Last administered on 11/16/16 12:12 ; Start 11/16/16 at 09:30 Famotidine (Pepcid) 10 mg DAILY PO Last administered on 11/16/16 12:12; Start 11/16/16 at 09:30 Furosemide (Lasix) 20 mg DAILY PO Last administered on 11/16/16 12:11; Start at 09:30 Olanzapine (Zyprexa) 5 mg DAILY PO Last administered on 11/16/16 12:11; Start 11/16/16 at 09:30 Sertraline HCl (Zoloft) 25 mg DAILY PO Last administered on 11/16/16 12:12; Start 11/16/16 at 09:30 Benztropine Mesylate 2 mg 2 mg BID PO Last administered on 11/16/16 21:58; Start 11/16/16 at 09:30 Ceftriaxone Sodium/Sodium Chloride (Rocephin/Iv Sodium Chloride 0.9% 50ml) 50 ml @ 100 mls/hr Q24H IV Last administered on 11/16/16 21:57; Start 11/16/16 at 21:00 Active Scripts Active Reported Famotidine 20 Mg Tablet 10 Mg PO DAILY Vitamin D3 (Cholecalciferol (Vitamin D3)) 1,000 Unit Tablet 1,000 Unit PO DAILY Furosemide 20 Mg Tablet 20 Mg PO DAILY Sertraline Hcl 25 Mg Tablet 25 Mg PO DAILY Atenolol 50 Mg Tablet 50 Mg PO DAILY Olanzapine 5 Mg Tablet 5 Mg PO DAILY Benztropine Mesylate 2 Mg Tablet 2 Mg PO BID Carbidopa-Levodopa 10-100 Tab (Carbidopa/Levodopa) 1 Each Tablet 1 Each PO TID Allergies Allergies: Coded Allergies: No Known Drug Allergies (Unverified , 06/03/16) Vitals VITALS Vital Signs Date Time Temp Pulse Resp B/P Pulse Ox O2 Delivery O2 Flow Rate FiO2 11/17/16 03:00 98.4 69 20 142/54 94 Room Air 2.0 98.4 Labs Labs Laboratory Tests Test 11/15/16 21:18 11/15/16 21:25 11/16/16 04:23 Urine Collection Type Unknown Urine Color Yellow Urine Clarity Turbid Urine pH 8.0 Urine Specific [place] 1.015 Urine Protein 30mg/dL (NEG-TRACE) Urine Glucose (UA) Negativemg/dL (NEG) Urine Ketones (Stick) Negativemg/dL (NEG) Urine Blood Large (NEG) Urine Nitrite Negative (NEG) Urine Bilirubin Negative (NEG) Urine Urobilinogen Dipstick 0.2mg/dL (0.2 mg/dL) Urine Leukocyte Esterase Large (NEG) Urine RBC 11-20/HPF (0-2) Urine WBC 11-20/HPF (0-4) Urine Bacteria Many/HPF (0-FEW) White Blood Count 12.6x10^3/uL (4.0-11.0) 10.4x10^3/uL (4.0-11.0) Red Blood Count 4.72x10^6/uL (3.50-5.40) 4.03x10^6/uL (3.50-5.40) Hemoglobin 13.7g/dL (12.0-15.5) 11.8g/dL (12.0-15.5) Hematocrit 42.0% (36.0-47.0) 36.0% (36.0-47.0) Mean Corpuscular Volume 89fL (79-100) 89fL (79-100) Mean Corpuscular Hemoglobin 29pg (25-35) 29pg (25-35) Mean Corpuscular Hemoglobin Concent 33g/dL (31-37) 33g/dL (31-37) Red Cell Distribution Width 13.8% (11.5-14.5) 13.3% (11.5-14.5) Platelet Count 296x10^3/uL (140-400) 214x10^3/uL (140-400) Neutrophils (%) (Auto) 77% (31-73) 71% (31-73) Lymphocytes (%) (Auto) 16% (24-48) 20% (24-48) Monocytes (%) (Auto) 6% (0-9) 7% (0-9) Eosinophils (%) (Auto) 2% (0-3) 2% (0-3) Basophils (%) (Auto) 1% (0-3) 1% (0-3) Neutrophils # (Auto) 9.6x10^3uL (1.8-7.7) 7.4x10^3uL (1.8-7.7) Lymphocytes # (Auto) 2.0x10^3/uL (1.0-4.8) 2.1x10^3/uL (1.0-4.8) Monocytes # (Auto) 0.7x10^3/uL (0.0-1.1) 0.7x10^3/uL (0.0-1.1) Eosinophils # (Auto) 0.2x10^3/uL (0.0-0.7) 0.2x10^3/uL (0.0-0.7) Basophils # (Auto) 0.1x10^3/uL (0.0-0.2) 0.1x10^3/uL (0.0-0.2) Prothrombin Time 13.1SEC (11.7-14.0) Prothromb Time International Ratio 1.1 (0.8-1.1) Activated Partial Thromboplast Time 34SEC (24-38) Stool Occult Blood Positive (NEG) Sodium Level 142mmol/L (136-145) 147mmol/L (136-145) Potassium Level 5.1mmol/L (3.5-5.1) 3.8mmol/L (3.5-5.1) Chloride Level 106mmol/L (98-107) 111mmol/L (98-107) Carbon Dioxide Level 28mmol/L (21-32) 29mmol/L (21-32) Anion Gap 8 (6-14) 7 (6-14) Blood Urea Nitrogen 11mg/dL (7-20) 12mg/dL (7-20) Creatinine 0.9mg/dL (0.6-1.0) 0.8mg/dL (0.6-1.0) Estimated GFR (Cockcroft-Gault) 61.5 70.5 BUN/Creatinine Ratio 12 (6-20) Glucose Level 137mg/dL (70-99) 104mg/dL (70-99) Calcium Level 9.8mg/dL (8.5-10.1) 9.1mg/dL (8.5-10.1) Total Bilirubin 0.3mg/dL (0.2-1.0) Aspartate Amino Transf (AST/SGOT) 23U/L (15-37) Alanine Aminotransferase (ALT/SGPT) 16U/L (14-59) Alkaline Phosphatase 79U/L (46-116) Total Protein 7.7g/dL (6.4-8.2) Albumin 3.1g/dL (3.4-5.0) Albumin/Globulin Ratio 0.7 (1.0-1.7) Assessment/Plan Assessment/Plan Assessment: 1. Post menopausal bleeding 2. Leiomyomata 3. Abdominal pain Recommendations: Abdominal Pain and vaginal bleeding could be associated with leiomyomata but tissue diagnosis is needed to rule out any endometrial pathology. Hysteroscopic D and C planned for 11/17/16 ABAD KIRKLAND MD Nov 17, 2016 05:25
[2016-11-17] MEDS: BENZTROPINE MESYLATE 1 MG TABLET. PO SCH ×2 (09:00→20:13)
[2016-11-17] MEDS: CARBIDOPA/LEVODOPA 10/100MG TABLET PO SCH ×3 (09:00→20:13)
[2016-11-17] MEDS: FAMOTIDINE 20 MG TABLET. PO SCH (09:00)
[2016-11-17] MEDS: CHOLECALCIFEROL (VITAMIN D3) 1,000 UNIT TABLET PO SCH (09:00)
[2016-11-17] MEDS: ATENOLOL 50 MG TABLET. PO SCH (09:00)
[2016-11-17] MEDS: FUROSEMIDE 20 MG TABLET PO SCH (09:00)
[2016-11-17] MEDS ORDERED: BENZTROPINE MESYLATE 1 MG TABLET. ONE (09:00)
[2016-11-17] MEDS: SERTRALINE 25 MG TABLET. PO SCH (09:00)
[2016-11-17] MEDS: OLANZAPINE 5 MG TABLET. PO SCH (09:00)
[2016-11-17] MEDS ORDERED: IV NORMAL SALINE 1000ML BAG 1,000 ML IV ONE (13:00)
--- NOTE | 2016-11-17 13:26 | PDOC ---
Subjective: Subjective: Denies pain. Objective: Objective: No BMs/rectal bleeding. Vital Signs: Vital Signs Date Time Temp Pulse Resp B/P Pulse Ox O2 Delivery O2 Flow Rate FiO2 11/17/16 10:41 97.7 68 18 116/45 98 Nasal Cannula 2.0 97.7 PE: GEN: NAD, contracted LUNGS: CTAB HEART: RRR ABD: S/ND/NT NEURO/PSYCH: A & O 3 A/P: Hemoccult positive stool Post-menopausal bleeding -- Going for hysteroscopic D&C today, await findings. GRACIE DUDLEY Nov 17, 2016 13:26
[2016-11-17] MEDS ORDERED: IV RINGERS,LACTATED 1000ML 1,000 ML IV SCH (13:34)
[2016-11-17] MEDS ORDERED: MORPHINE SULFATE 2 MG/ML DISP.SYRIN. IV PRN ×2 (13:45)
[2016-11-17] MEDS ORDERED: FENTANYL PF 100 MCG/2 ML VIAL. IV PRN ×2 (13:45)
[2016-11-17] MEDS ORDERED: ONDANSETRON PF 4 MG/2 ML VIAL. IV PRN ×2 (13:45→13:50)
--- NOTE | 2016-11-17 13:54 | PDOC ---
PROGRESS NOTES Chief Complaint Chief Complaint Acute blood loss anemia Prior HIstory of vaginal bleeding, concern for possible endometrial cancer UTI, rocephin mild malnutrition Parkinsons, she reports as tardive dyskinesia, weakness and debility depression or anxiety, History of Present Illness History of Present Illness tremor worse today, NPO for procedure cont current D&C planned today IV fluid while NPO, Vitals Vitals Vital Signs Date Time Temp Pulse Resp B/P Pulse Ox O2 Delivery O2 Flow Rate FiO2 11/17/16 10:41 97.7 68 18 116/45 98 Nasal Cannula 2.0 97.7 Physical Exam General: Alert, Oriented X3, Cooperative Heart: Regular rate, No murmurs Lungs: Clear Abdomen: Normal bowel sounds, Soft Extremities: No clubbing, No edema Skin: No breakdown Review of Systems Review of Systems tremor weakness, dry mouth Assessment and Plan Assessmemt and Plan Problems Medical Problems: (1) Vaginal bleeding Status: Acute Problems: Comment Review of Relevant I have reviewed the following items clovis (where applicable) has been applied. Labs Laboratory Tests Test 11/15/16 21:18 11/15/16 21:25 11/16/16 04:23 Urine Collection Type Unknown Urine Color Yellow Urine Clarity Turbid Urine pH 8.0 Urine Specific [place] 1.015 Urine Protein 30mg/dL (NEG-TRACE) Urine Glucose (UA) Negativemg/dL (NEG) Urine Ketones (Stick) Negativemg/dL (NEG) Urine Blood Large (NEG) Urine Nitrite Negative (NEG) Urine Bilirubin Negative (NEG) Urine Urobilinogen Dipstick 0.2mg/dL (0.2 mg/dL) Urine Leukocyte Esterase Large (NEG) Urine RBC 11-20/HPF (0-2) Urine WBC 11-20/HPF (0-4) Urine Bacteria Many/HPF (0-FEW) White Blood Count 12.6x10^3/uL (4.0-11.0) 10.4x10^3/uL (4.0-11.0) Red Blood Count 4.72x10^6/uL (3.50-5.40) 4.03x10^6/uL (3.50-5.40) Hemoglobin 13.7g/dL (12.0-15.5) 11.8g/dL (12.0-15.5) Hematocrit 42.0% (36.0-47.0) 36.0% (36.0-47.0) Mean Corpuscular Volume 89fL (79-100) 89fL (79-100) Mean Corpuscular Hemoglobin 29pg (25-35) 29pg (25-35) Mean Corpuscular Hemoglobin Concent 33g/dL (31-37) 33g/dL (31-37) Red Cell Distribution Width 13.8% (11.5-14.5) 13.3% (11.5-14.5) Platelet Count 296x10^3/uL (140-400) 214x10^3/uL (140-400) Neutrophils (%) (Auto) 77% (31-73) 71% (31-73) Lymphocytes (%) (Auto) 16% (24-48) 20% (24-48) Monocytes (%) (Auto) 6% (0-9) 7% (0-9) Eosinophils (%) (Auto) 2% (0-3) 2% (0-3) Basophils (%) (Auto) 1% (0-3) 1% (0-3) Neutrophils # (Auto) 9.6x10^3uL (1.8-7.7) 7.4x10^3uL (1.8-7.7) Lymphocytes # (Auto) 2.0x10^3/uL (1.0-4.8) 2.1x10^3/uL (1.0-4.8) Monocytes # (Auto) 0.7x10^3/uL (0.0-1.1) 0.7x10^3/uL (0.0-1.1) Eosinophils # (Auto) 0.2x10^3/uL (0.0-0.7) 0.2x10^3/uL (0.0-0.7) Basophils # (Auto) 0.1x10^3/uL (0.0-0.2) 0.1x10^3/uL (0.0-0.2) Prothrombin Time 13.1SEC (11.7-14.0) Prothromb Time International Ratio 1.1 (0.8-1.1) Activated Partial Thromboplast Time 34SEC (24-38) Stool Occult Blood Positive (NEG) Sodium Level 142mmol/L (136-145) 147mmol/L (136-145) Potassium Level 5.1mmol/L (3.5-5.1) 3.8mmol/L (3.5-5.1) Chloride Level 106mmol/L (98-107) 111mmol/L (98-107) Carbon Dioxide Level 28mmol/L (21-32) 29mmol/L (21-32) Anion Gap 8 (6-14) 7 (6-14) Blood Urea Nitrogen 11mg/dL (7-20) 12mg/dL (7-20) Creatinine 0.9mg/dL (0.6-1.0) 0.8mg/dL (0.6-1.0) Estimated GFR (Cockcroft-Gault) 61.5 70.5 BUN/Creatinine Ratio 12 (6-20) Glucose Level 137mg/dL (70-99) 104mg/dL (70-99) Calcium Level 9.8mg/dL (8.5-10.1) 9.1mg/dL (8.5-10.1) Total Bilirubin 0.3mg/dL (0.2-1.0) Aspartate Amino Transf (AST/SGOT) 23U/L (15-37) Alanine Aminotransferase (ALT/SGPT) 16U/L (14-59) Alkaline Phosphatase 79U/L (46-116) Total Protein 7.7g/dL (6.4-8.2) Albumin 3.1g/dL (3.4-5.0) Albumin/Globulin Ratio 0.7 (1.0-1.7) Microbiology 11/15/16 Urine Culture - Preliminary, Resulted 11/15/16 Urine Culture Result 1 (CAT) - Preliminary, Resulted Medications Current Medications Sodium Chloride (Iv Sodium Chloride 0.9% 500ml Bag) 500 ml @ 500 mls/hr 1X ONCE IV Last administered on 11/15/16t 21:30; Start 11/15/16 at 21:30; Stop at 22:29; Status DC Ondansetron HCl (Zofran) 4 mg PRN Q8HRS PRN IV NAUSEA/VOMITING; Start 11/15/16 at 23:45; Stop 11/16/16 at 23:44; Status DC Morphine Sulfate 2 mg PRN Q2HR PRN IV SEVERE PAIN; Start 11/15/16 at 23:45; Stop 11/16/16 at 23:44; Status DC Acetaminophen 650 mg 650 mg PRN Q4HRS PRN PO FEVER; Start 11/15/16 at 23:45; Stop 11/16/16 at 23:44; Status DC Ceftriaxone Sodium (Rocephin 1gm Ivpb For Omni) 50 ml @ 100 mls/hr 1X ONCE IV Last administered on 11/16/16 03:08; Start 11/16/16 at 01:00; Stop 11/16/16 at 01:29; Status DC Atenolol (Tenormin) 50 mg DAILY PO Last administered on 11/16/16 12:12; Start 11/16/16 at 09:30 Carbidopa/Levodopa (Sinemet 10/) 1 tab TID PO Last administered on 11/16/16 21:58; Start 11/16/16 at 09:30 Vitamin D (Vitamin D3) 1,000 unit DAILY PO Last administered on 11/16/16 12:12 ; Start 11/16/16 at 09:30 Famotidine (Pepcid) 10 mg DAILY PO Last administered on 11/16/16 12:12; Start 11/16/16 at 09:30 Furosemide (Lasix) 20 mg DAILY PO Last administered on 11/16/16 12:11; Start at 09:30 Olanzapine (Zyprexa) 5 mg DAILY PO Last administered on 11/16/16 12:11; Start 11/16/16 at 09:30 Sertraline HCl (Zoloft) 25 mg DAILY PO Last administered on 11/16/16 12:12; Start 11/16/16 at 09:30 Benztropine Mesylate 2 mg 2 mg BID PO Last administered on 11/16/16 21:58; Start 11/16/16 at 09:30 Ceftriaxone Sodium 1 gm/ Sodium Chloride 50 ml @ 100 mls/hr Q24H IV Last administered on 11/16/16 21:57; Start 11/16/16 at 21:00 Sodium Chloride (Iv Sodium Chloride 0.9% 1000ml Bag) 1,000 ml @ 100 mls/hr 1X ONCE IV Last administered on 11/17/16 12:52; Start 11/17/16 at 13:00; Stop at 22:59 Ondansetron HCl (Zofran) 4 mg PRN Q6HRS PRN IV Nausea, 1st Choice; Start at 13:45; Stop 11/18/16 at 13:44 Fentanyl Citrate (Fentanyl 2ml Vial) 25 mcg PRN Q5MIN PRN IV Acute Pain; Start 11/17/16 at 13:45; Stop 11/18/16 at 13:44 Fentanyl Citrate (Fentanyl 2ml Vial) 50 mcg PRN Q5MIN PRN IV Acute Pain; Start 11/17/16 at 13:45; Stop 11/18/16 at 13:44 Morphine Sulfate 1 mg PRN Q10MIN PRN IV Mild Pain; Start 11/17/16 at 13:45; Stop 11/18/16 at 13:44 Morphine Sulfate 2 mg 2 mg PRN Q10MIN PRN IV Moderate Pain; Start 11/17/16 at 13 :45; Stop 11/18/16 at 13:44 Lactated Ringer's (Iv Lactated Ringers) 1,000 ml @ 50 mls/hr Q20H IV ; Start at 13:34; Stop 11/18/16 at 01:33 Active Scripts Active Reported Famotidine 20 Mg Tablet 10 Mg PO DAILY Vitamin D3 (Cholecalciferol (Vitamin D3)) 1,000 Unit Tablet 1,000 Unit PO DAILY Furosemide 20 Mg Tablet 20 Mg PO DAILY Sertraline Hcl 25 Mg Tablet 25 Mg PO DAILY Atenolol 50 Mg Tablet 50 Mg PO DAILY Olanzapine 5 Mg Tablet 5 Mg PO DAILY Benztropine Mesylate 2 Mg Tablet 2 Mg PO BID Carbidopa-Levodopa 10-100 Tab (Carbidopa/Levodopa) 1 Each Tablet 1 Each PO TID Vitals/I & O Vital Sign - Last 24 Hours 11/16/16 11/16/16 11/16/16 11/16/16 14:42 19:00 20:00 23:00 Temp 97.7 99.1 97.7 99.1 Pulse 69 55 49 Resp 18 18 20 B/P 94/54 106/49 108/48 Pulse Ox 94 94 99 O2 Delivery Nasal Cannula Nasal Cannula Room Air Nasal Cannula O2 Flow Rate 2.0 3.0 11/17/16 11/17/16 11/17/1611/17/17 03:00 07:00 08:05 10:41 Temp 98.4 97.7 97.7 98.4 97.7 97.7 Pulse 69 73 68 Resp 20 18 18 B/P 142/54 99/58 116/45 Pulse Ox 94 99 98 O2 Delivery Room Air Nasal Cannula Room Air Nasal Cannula O2 Flow Rate 2.0 2.0 2.0 2.0 Intake and Output 11/16/16 11/16/16 11/17/16 15:00 23:00 07:00 Intake Total 360 ml 550 ml 300 ml Output Total 750 ml Balance 360 ml 550 ml -450 ml ERIC MORAES MD Nov 17, 2016 13:53
[2016-11-17] MEDS ORDERED: FENTANYL PF 100 MCG/2 ML VIAL. ONE (14:36)
[2016-11-17] MEDS ORDERED: ONDANSETRON PF 4 MG/2 ML VIAL. ONE (14:36)
[2016-11-17] MEDS ORDERED: PROPOFOL 20 ML IV ONE (14:36)
[2016-11-17] MEDS ORDERED: LIDOCAINE 2% 100 MG/5 ML SYRINGE. ONE (14:36)
[2016-11-17] MEDS ORDERED: DEXAMETHASONE SOD PHOS 20 MG/5 ML VIAL. ONE (14:36)
[2016-11-17] MEDS ORDERED: PHENYLEPHRINE in 0.9% NACL PF 1 MG/10 ML DISP.SYRIN. IV ONE (15:00)
[2016-11-17] MEDS ORDERED: SEVOFLURANE 31 TO 60 MINUTES. IH ONE (15:30)
--- NOTE | 2016-11-17 16:06 | PDOC ---
BRIEF OPERATIVE NOTE Pre-Op Diagnosis PMB/Fibroids Post-Op Diagnosis Same Procedure Performed Dx heteroscopy Surgeon Fei Anesthesia Type: General Blood Loss 52cc Specimens Obtained None Findings Dictated Complications None ABAD KIRKLAND MD Nov 17, 2016 16:06
[2016-11-17] MEDS: CEFTRIAXONE SODIUM 1 GM in IV NORMAL SALINE 50ML 50 ML IV SCH (20:13)
[2016-11-18 02:51] VITALS: BP 129/64
[2016-11-18 07:15] VITALS: BP 123/54
[2016-11-18] MEDS: CHOLECALCIFEROL (VITAMIN D3) 1,000 UNIT TABLET PO SCH (08:20)
[2016-11-18] MEDS: BENZTROPINE MESYLATE 1 MG TABLET. PO SCH (08:20)
[2016-11-18] MEDS: ATENOLOL 50 MG TABLET. PO SCH (08:20)
[2016-11-18] MEDS: SERTRALINE 25 MG TABLET. PO SCH (08:20)
[2016-11-18] MEDS: CARBIDOPA/LEVODOPA 10/100MG TABLET PO SCH ×2 (08:20→14:10)
[2016-11-18] MEDS: OLANZAPINE 5 MG TABLET. PO SCH (08:21)
[2016-11-18] MEDS: FAMOTIDINE 20 MG TABLET. PO SCH (08:21)
[2016-11-18] MEDS: FUROSEMIDE 20 MG TABLET PO SCH (08:21)
[2016-11-18] MEDS ORDERED: BENZTROPINE MESYLATE 1 MG TABLET. ONE (09:00)
[2016-11-18 10:50] VITALS: BP 108/38
--- NOTE | 2016-11-18 12:14 | PDOC ---
PROGRESS NOTES Chief Complaint Chief Complaint Acute blood loss - vaginal bleed Prior History of vaginal bleeding, concern for possible endometrial cancer UTI, rocephin mild malnutrition Parkinsons, she reports as tardive dyskinesia, weakness and debility depression or anxiety, History of Present Illness History of Present Illness tremor better today, meds were restarted, NPO exac. syptoms eating well cont current discussed with Dr. Enamorado, patient OK to proceed with hysterectomy Vitals Vitals Vital Signs Date Time Temp Pulse Resp B/P Pulse Ox O2 Delivery O2 Flow Rate FiO2 11/18/16 10:50 97.7 50 17 108/38 96 Nasal Cannula 2.0 97.7 Physical Exam General: Alert, Oriented X3, Cooperative Heart: Regular rate, No murmurs Lungs: Clear Abdomen: Normal bowel sounds, Soft Extremities: No clubbing, No edema Skin: No breakdown Assessment and Plan Assessmemt and Plan Problems Medical Problems: (1) Vaginal bleeding Status: Acute Problems: Comment Review of Relevant I have reviewed the following items clovis (where applicable) has been applied. Labs Microbiology 11/15/16 Urine Culture - Preliminary, Resulted 11/15/16 Urine Culture Result 1 (CAT) - Preliminary, Resulted Medications Current Medications Sodium Chloride (Iv Sodium Chloride 0.9% 500ml Bag) 500 ml @ 500 mls/hr 1X ONCE IV Last administered on 11/15/16 21:30; Start 11/15/16 at 21:30; Stop at 22:29; Status DC Ondansetron HCl (Zofran) 4 mg PRN Q8HRS PRN IV NAUSEA/VOMITING; Start 11/15/16 at 23:45; Stop 11/16/16 at 23:44; Status DC Morphine Sulfate 2 mg PRN Q2HR PRN IV SEVERE PAIN; Start 11/15/16 at 23:45; Stop 11/16/16 at 23:44; Status DC Acetaminophen 650 mg 650 mg PRN Q4HRS PRN PO FEVER; Start 11/15/16 at 23:45; Stop 11/16/16 at 23:44; Status DC Ceftriaxone Sodium (Rocephin 1gm Ivpb For Omni) 50 ml @ 100 mls/hr 1X ONCE IV Last administered on 11/16/16 03:08; Start 11/16/16 at 01:00; Stop 11/16/16 at 01:29; Status DC Atenolol (Tenormin) 50 mg DAILY PO Last administered on 11/18/16 08:20; Start 11/16/16 at 09:30 Carbidopa/Levodopa (Sinemet 10/100) 1 tab TID PO Last administered on 11/18/16 08:20; Start 11/16/16 at 09:30 Vitamin D (Vitamin D3) 1,000 unit DAILY PO Last administered on 11/18/16 08:20 ; Start 11/16/16 at 09:30 Famotidine (Pepcid) 10 mg DAILY PO Last administered on 11/18/16 08:21; Start 11/16/16 at 09:30 Furosemide (Lasix) 20 mg DAILY PO Last administered on 11/18/16 08:21; Start at 09:30 Olanzapine (Zyprexa) 5 mg DAILY PO Last administered on 11/18/16 08:21; Start 11/16/16 at 09:30 Sertraline HCl (Zoloft) 25 mg DAILY PO Last administered on 11/18/16 08:20; Start 11/16/16 at 09:30 Benztropine Mesylate 2 mg 2 mg BID PO Last administered on 11/18/16 08:20; Start 11/16/16 at 09:30 Ceftriaxone Sodium 1 gm/ Sodium Chloride 50 ml @ 100 mls/hr Q24H IV Last administered on 11/17/16 20:13; Start 11/16/16 at 21:00 Sodium Chloride (Iv Sodium Chloride 0.9% 1000ml Bag) 1,000 ml @ 100 mls/hr 1X ONCE IV Last administered on 11/17/16 12:52; Start 11/17/16 at 13:00; Stop at 22:59; Status DC Ondansetron HCl (Zofran) 4 mg PRN Q6HRS PRN IV Nausea, 1st Choice; Start at 13:45; Stop 11/17/16 at 13:50; Status DC Fentanyl Citrate (Fentanyl 2ml Vial) 25 mcg PRN Q5MIN PRN IV Acute Pain; Start 11/17/16 at 13:45; Stop 11/18/16 at 13:44 Fentanyl Citrate (Fentanyl 2ml Vial) 50 mcg PRN Q5MIN PRN IV Acute Pain; Start 11/17/16 at 13:45; Stop 11/18/16 at 13:44 Morphine Sulfate 1 mg PRN Q10MIN PRN IV Mild Pain; Start 11/17/16 at 13:45; Stop 11/18/16 at 13:44 Morphine Sulfate 2 mg 2 mg PRN Q10MIN PRN IV Moderate Pain; Start 11/17/16 at 13 :45; Stop 11/18/16 at 13:44 Lactated Ringer's (Iv Lactated Ringers) 1,000 ml @ 50 mls/hr Q20H IV Last administered on 11/17/16t 14:15; Start 11/17/16 at 13:34; Stop 11/18/16 at 01:33; Status DC Ondansetron HCl (Zofran) 4 mg PRN Q6HRS PRN IV Nausea, 1st Choice; Start at 13:50; Stop 11/18/16 at 13:44 Fentanyl Citrate (Fentanyl 2ml Vial) 100 mcg STK-MED ONCE .ROUTE ; Start at 14:36; Stop 11/17/16 at 14:37; Status DC Dexamethasone Sodium Phosphate (Decadron) 20 mg STK-MED ONCE .ROUTE ; Start 11/17 at 14:36; Stop 11/17/16 at 14:37; Status DC Ondansetron HCl 4 mg 4 mg STK-MED ONCE .ROUTE ; Start 11/17/16 at 14:36; Stop 11/17/16 at 14:37; Status DC Propofol (Diprivan) 20 ml @ As Directed STK-MED ONCE IV ; Start 11/17/16 at 14:36 ; Stop 11/17/16 at 14:37; Status DC Lidocaine HCl (Lidocaine HCl 2% Abboject) 100 mg STK-MED ONCE .ROUTE ; Start 11/17/16 at 14:36; Stop 11/17/16 at 14:37; Status DC Phenylephrine HCl 1 mg STK-MED ONCE IV ; Start 11/17/16 at 15:00; Stop 11/17/16 at 15:01; Status DC Sevoflurane (Ultane) 30 ml STK-MED ONCE IH ; Start 11/17/16 at 15:30; Stop at 15:31; Status DC Active Scripts Active Reported Famotidine 20 Mg Tablet 10 Mg PO DAILY Vitamin D3 (Cholecalciferol (Vitamin D3)) 1,000 Unit Tablet 1,000 Unit PO DAILY Furosemide 20 Mg Tablet 20 Mg PO DAILY Sertraline Hcl 25 Mg Tablet 25 Mg PO DAILY Atenolol 50 Mg Tablet 50 Mg PO DAILY Olanzapine 5 Mg Tablet 5 Mg PO DAILY Benztropine Mesylate 2 Mg Tablet 2 Mg PO BID Carbidopa-Levodopa 10-100 Tab (Carbidopa/Levodopa) 1 Each Tablet 1 Each PO TID Vitals/I & O Vital Sign - Last 24 Hours 11/17/16 11/17/16 11/17/16 11/17/16 14:12 15:45 15:45 16:00 Temp 98.8 97.1 98.8 97.1 Pulse 80 69 72 Resp 15 20 18 B/P 134/75 135/78 142/65 Pulse Ox 98 97 O2 Delivery Room Air Simple Mask Mask Simple Mask O2 Flow Rate 2.0 10 15 10 11/17/16 11/17/16 11/17/16 11/17/16 16:15 16:30 16:45 17:00 Temp 97.5 97.5 97.5 97.5 Pulse 66 69 68 61 Resp 20 18 18 18 B/P 93/71 115/44 107/54 116/61 Pulse Ox 95 93 97 93 O2 Delivery Room Air Room Air Nasal Cannula Nasal Cannula O2 Flow Rate 2 3.0 11/17/16 11/17/16 11/17/16 11/17/16 17:15 17:45 18:15 19:40 Temp 99.5 99.5 Pulse 63 63 65 90 Resp 18 18 18 B/P 122/65 114/66 116/62 119/83 Pulse Ox 98 96 97 95 O2 Delivery Nasal Cannula Nasal Cannula Nasal Cannula Nasal Cannula O2 Flow Rate 3.0 3.0 3.0 3.0 11/17/16 11/17/16 11/18/16 11/18/16 20:00 22:51 02:51 07:15 Temp 98.1 98.4 97.9 98.1 98.4 97.9 Pulse 56 47 71 Resp 18 18 16 B/P 108/51 129/64 123/54 Pulse Ox 93 93 95 O2 Delivery Mask Nasal Cannula Nasal Cannula Nasal Cannula O2 Flow Rate 3.0 2.0 2.0 2.0 11/18/16 11/18/16 11/18/16 08:15 08:20 10:50 Temp 97.7 97.7 Pulse 71 50 Resp 17 B/P 123/54 108/38 Pulse Ox 96 O2 Delivery Mask Nasal Cannula O2 Flow Rate 2.0 2.0 Intake and Output 11/17/16 11/17/16 11/18/16 15:00 23:00 07:00 Intake Total 1020 ml 1530 ml Output Total 1000 ml 200 ml Balance 20 ml 1330 ml ERIC MORAES MD Nov 18, 2016 12:14
--- NOTE | 2016-11-18 14:01 | PDOC ---
Objective: Objective: Note plans to proceed w/ hysterectomy. No further concerns w/ GI bleeding per other notes, staff. Vital Signs: Vital Signs Date Time Temp Pulse Resp B/P Pulse Ox O2 Delivery O2 Flow Rate FiO2 11/18/16 10:50 97.7 50 17 108/38 96 Nasal Cannula 2.0 97.7 PE: GEN: NAD NEURO/PSYCH: asleep, did not awaken A/P: Post-menopausal bleeding -s/p hysteroscopy: fibroids -plans for hysterectomy Hemoccult positive stool -no obvious GI bleeding -- Hysterectomy planning in process. GRACIE DUDLEY Nov 18, 2016 14:00
[2016-11-18 14:49] VITALS: BP 99/48
[2016-11-18 19:00] VITALS: BP 118/70
[2016-11-18 22:47] VITALS: BP 102/56
[2016-11-19] VITALS (9 sets, daily range): BP systolic 59–123; BP diastolic 47–90
[2016-11-19] MEDS: CARBIDOPA/LEVODOPA 10/100MG TABLET PO SCH ×4 (00:19→21:43)
[2016-11-19] MEDS: CEFTRIAXONE SODIUM 1 GM in IV NORMAL SALINE 50ML 50 ML IV SCH ×2 (00:19→21:43)
[2016-11-19] MEDS: BENZTROPINE MESYLATE 1 MG TABLET. PO SCH ×3 (00:19→21:43)
[2016-11-19] MEDS ORDERED: BENZTROPINE MESYLATE 1 MG TABLET. ONE (01:00)
[2016-11-19 04:48] LABS: BASO # 0.1 x10^3/uL (0.0-0.2); BASO % 1 % (0-3); EOS % 1 % (0-3); HEMATOCRIT 33.3 % (36.0-47.0); HEMOGLOBIN 10.9 g/dL (12.0-15.5); LYMPH # 2.5 x10^3/uL (1.0-4.8); LYMPH % 25 % (24-48); MEAN CORPUSCULAR HEMOGLOBIN 29 pg (25-35); MEAN CORPUSCULAR HGB CONC 33 g/dL (31-37); MEAN CORPUSCULAR VOLUME 90 fL (79-100); MONO % 7 % (0-9); NEUT % 67 % (31-73); PLATELET COUNT 202 x10^3/uL (140-400); RED BLOOD COUNT 3.71 x10^6/uL (3.50-5.40); WHITE BLOOD COUNT 9.9 x10^3/uL (4.0-11.0)
[2016-11-19 04:52] LABS: ALBUMIN 2.5 g/dL (3.4-5.0); ALBUMIN/GLOBULIN RATIO 0.7 (1.0-1.7); CALCIUM 8.9 mg/dL (8.5-10.1); CREATININE 0.8 mg/dL (0.6-1.0); GFR 70.5; POTASSIUM 3.7 mmol/L (3.5-5.1); TOTAL BILIRUBIN 0.3 mg/dL (0.2-1.0); TOTAL PROTEIN 6.2 g/dL (6.4-8.2)
[2016-11-19] MEDS ORDERED: MORPHINE SULFATE 2 MG/ML DISP.SYRIN. IV PRN (06:45)
[2016-11-19] MEDS ORDERED: PROCHLORPERAZINE 10 MG/2 ML VIAL. IV PRN (06:45)
[2016-11-19] MEDS ORDERED: HYDROMORPHONE 2 MG/ML VIAL. IV PRN (06:45)
[2016-11-19] MEDS ORDERED: LIDOCAINE 1% 1 ML SYRINGE. ID PRN (07:00)
[2016-11-19] MEDS ORDERED: ONDANSETRON PF 4 MG/2 ML VIAL. IV PRN (07:00)
[2016-11-19] MEDS ORDERED: IV RINGERS,LACTATED 1000ML 1,000 ML IV SCH (07:00)
[2016-11-19] MEDS ORDERED: FENTANYL PF 100 MCG/2 ML VIAL. IV PRN ×2 (07:00)
[2016-11-19] MEDS: FAMOTIDINE 20 MG TABLET. PO SCH (09:00)
[2016-11-19] MEDS: SERTRALINE 25 MG TABLET. PO SCH (09:00)
[2016-11-19] MEDS: CHOLECALCIFEROL (VITAMIN D3) 1,000 UNIT TABLET PO SCH (09:00)
[2016-11-19] MEDS: FUROSEMIDE 20 MG TABLET PO SCH (09:00)
[2016-11-19] MEDS: OLANZAPINE 5 MG TABLET. PO SCH (09:00)
[2016-11-19] MEDS: ATENOLOL 50 MG TABLET. PO SCH (09:30)
--- NOTE | 2016-11-19 12:08 | PDOC ---
Subjective: Subjective: Denies pain. Objective: Objective: Per RN - hysterectomy later today, no bleeding. Vital Signs: Vital Signs Date Time Temp Pulse Resp B/P Pulse Ox O2 Delivery O2 Flow Rate FiO2 11/19/16 10:40 98.5 54 18 111/54 97 Nasal Cannula 3.0 98.5 Labs: Laboratory Tests Test 11/19/16 04:15 White Blood Count 9.9x10^3/uL Red Blood Count 3.71x10^6/uL Hemoglobin 10.9g/dL Hematocrit 33.3% Mean Corpuscular Volume 90fL Mean Corpuscular Hemoglobin 29pg Mean Corpuscular Hemoglobin Concent 33g/dL Red Cell Distribution Width 14.0% Platelet Count 202x10^3/uL Neutrophils (%) (Auto) 67% Lymphocytes (%) (Auto) 25% Monocytes (%) (Auto) 7% Eosinophils (%) (Auto) 1% Basophils (%) (Auto) 1% Neutrophils # (Auto) 6.6x10^3uL Lymphocytes # (Auto) 2.5x10^3/uL Monocytes # (Auto) 0.6x10^3/uL Eosinophils # (Auto) 0.1x10^3/uL Basophils # (Auto) 0.1x10^3/uL Sodium Level 148mmol/L Potassium Level 3.7mmol/L Chloride Level 113mmol/L Carbon Dioxide Level 29mmol/L Anion Gap 6 Blood Urea Nitrogen 12mg/dL Creatinine 0.8mg/dL Estimated GFR (Cockcroft-Gault) 70.5 BUN/Creatinine Ratio 15 Glucose Level 98mg/dL Calcium Level 8.9mg/dL Total Bilirubin 0.3mg/dL Aspartate Amino Transf (AST/SGOT) 21U/L Alanine Aminotransferase (ALT/SGPT) 7U/L Alkaline Phosphatase 48U/L Total Protein 6.2g/dL Albumin 2.5g/dL Albumin/Globulin Ratio 0.7 PE: GEN: NAD, was sleeping, tremulous when awakened LUNGS: nasal cannula HEART: RRR ABD: S/ND/NT NEURO/PSYCH: A & O 3 A/P: Post-menopausal bleeding Hemoccult positive stool -no obvious GI bleeding -- Hysterectomy today. No new GI recs. GRACIE DUDLEY Nov 19, 2016 12:08
[2016-11-19] MEDS ORDERED: CEFAZOLIN 2GM PREMIX 50 ML IV SCH (13:00)
[2016-11-19] MEDS ORDERED: CEFAZOLIN 2GM PREMIX 50 ML IV ONE (13:03)
--- NOTE | 2016-11-19 13:12 | PDOC ---
PROGRESS NOTES Chief Complaint Chief Complaint Acute blood loss - vaginal bleed Prior History of vaginal bleeding, concern for possible endometrial cancer UTI, rocephin mild malnutrition, worsening hypernatremia Parkinsons, she reports as tardive dyskinesia, weakness and debility depression or anxiety, History of Present Illness History of Present Illness start PPN, procalamine for hypernatremia and malnutrition plan hys today, Dr. Enamorado had been eating well cont other supportive care pt and OT eval for home health, has had before Vitals Vitals Vital Signs Date Time Temp Pulse Resp B/P Pulse Ox O2 Delivery O2 Flow Rate FiO2 11/19/16 12:46 98.6 59 21 142/68 94 Nasal Cannula 2 98.6 Physical Exam General: Alert, Oriented X3, Cooperative Heart: Regular rate, No murmurs Lungs: Clear, Other Abdomen: Normal bowel sounds, Soft Extremities: No clubbing, No edema Skin: No breakdown Labs LABS Laboratory Tests Test 11/19/16 04:15 White Blood Count 9.9x10^3/uL (4.0-11.0) Red Blood Count 3.71x10^6/uL (3.50-5.40) Hemoglobin 10.9g/dL (12.0-15.5) Hematocrit 33.3% (36.0-47.0) Mean Corpuscular Volume 90fL (79-100) Mean Corpuscular Hemoglobin 29pg (25-35) Mean Corpuscular Hemoglobin Concent 33g/dL (31-37) Red Cell Distribution Width 14.0% (11.5-14.5) Platelet Count 202x10^3/uL (140-400) Neutrophils (%) (Auto) 67% (31-73) Lymphocytes (%) (Auto) 25% (24-48) Monocytes (%) (Auto) 7% (0-9) Eosinophils (%) (Auto) 1% (0-3) Basophils (%) (Auto) 1% (0-3) Neutrophils # (Auto) 6.6x10^3uL (1.8-7.7) Lymphocytes # (Auto) 2.5x10^3/uL (1.0-4.8) Monocytes # (Auto) 0.6x10^3/uL (0.0-1.1) Eosinophils # (Auto) 0.1x10^3/uL (0.0-0.7) Basophils # (Auto) 0.1x10^3/uL (0.0-0.2) Sodium Level 148mmol/L (136-145) Potassium Level 3.7mmol/L (3.5-5.1) Chloride Level 113mmol/L (98-107) Carbon Dioxide Level 29mmol/L (21-32) Anion Gap 6 (6-14) Blood Urea Nitrogen 12mg/dL (7-20) Creatinine 0.8mg/dL (0.6-1.0) Estimated GFR (Cockcroft-Gault) 70.5 BUN/Creatinine Ratio 15 (6-20) Glucose Level 98mg/dL (70-99) Calcium Level 8.9mg/dL (8.5-10.1) Total Bilirubin 0.3mg/dL (0.2-1.0) Aspartate Amino Transf (AST/SGOT) 21U/L (15-37) Alanine Aminotransferase (ALT/SGPT) 7U/L (14-59) Alkaline Phosphatase 48U/L (46-116) Total Protein 6.2g/dL (6.4-8.2) Albumin 2.5g/dL (3.4-5.0) Albumin/Globulin Ratio 0.7 (1.0-1.7) Review of Systems Review of Systems no n./v.d had felt well Assessment and Plan Assessmemt and Plan Problems Medical Problems: (1) Vaginal bleeding Status: Acute Problems: Comment Review of Relevant I have reviewed the following items clovis (where applicable) has been applied. Labs Laboratory Tests Test 11/19/16 04:15 White Blood Count 9.9x10^3/uL (4.0-11.0) Red Blood Count 3.71x10^6/uL (3.50-5.40) Hemoglobin 10.9g/dL (12.0-15.5) Hematocrit 33.3% (36.0-47.0) Mean Corpuscular Volume 90fL (79-100) Mean Corpuscular Hemoglobin 29pg (25-35) Mean Corpuscular Hemoglobin Concent 33g/dL (31-37) Red Cell Distribution Width 14.0% (11.5-14.5) Platelet Count 202x10^3/uL (140-400) Neutrophils (%) (Auto) 67% (31-73) Lymphocytes (%) (Auto) 25% (24-48) Monocytes (%) (Auto) 7% (0-9) Eosinophils (%) (Auto) 1% (0-3) Basophils (%) (Auto) 1% (0-3) Neutrophils # (Auto) 6.6x10^3uL (1.8-7.7) Lymphocytes # (Auto) 2.5x10^3/uL (1.0-4.8) Monocytes # (Auto) 0.6x10^3/uL (0.0-1.1) Eosinophils # (Auto) 0.1x10^3/uL (0.0-0.7) Basophils # (Auto) 0.1x10^3/uL (0.0-0.2) Sodium Level 148mmol/L (136-145) Potassium Level 3.7mmol/L (3.5-5.1) Chloride Level 113mmol/L (98-107) Carbon Dioxide Level 29mmol/L (21-32) Anion Gap 6 (6-14) Blood Urea Nitrogen 12mg/dL (7-20) Creatinine 0.8mg/dL (0.6-1.0) Estimated GFR (Cockcroft-Gault) 70.5 BUN/Creatinine Ratio 15 (6-20) Glucose Level 98mg/dL (70-99) Calcium Level 8.9mg/dL (8.5-10.1) Total Bilirubin 0.3mg/dL (0.2-1.0) Aspartate Amino Transf (AST/SGOT) 21U/L (15-37) Alanine Aminotransferase (ALT/SGPT) 7U/L (14-59) Alkaline Phosphatase 48U/L (46-116) Total Protein 6.2g/dL (6.4-8.2) Albumin 2.5g/dL (3.4-5.0) Albumin/Globulin Ratio 0.7 (1.0-1.7) Laboratory Tests Test 11/19/16 04:15 White Blood Count 9.9x10^3/uL (4.0-11.0) Red Blood Count 3.71x10^6/uL (3.50-5.40) Hemoglobin 10.9g/dL (12.0-15.5) Hematocrit 33.3% (36.0-47.0) Mean Corpuscular Volume 90fL (79-100) Mean Corpuscular Hemoglobin 29pg (25-35) Mean Corpuscular Hemoglobin Concent 33g/dL (31-37) Red Cell Distribution Width 14.0% (11.5-14.5) Platelet Count 202x10^3/uL (140-400) Neutrophils (%) (Auto) 67% (31-73) Lymphocytes (%) (Auto) 25% (24-48) Monocytes (%) (Auto) 7% (0-9) Eosinophils (%) (Auto) 1% (0-3) Basophils (%) (Auto) 1% (0-3) Neutrophils # (Auto) 6.6x10^3uL (1.8-7.7) Lymphocytes # (Auto) 2.5x10^3/uL (1.0-4.8) Monocytes # (Auto) 0.6x10^3/uL (0.0-1.1) Eosinophils # (Auto) 0.1x10^3/uL (0.0-0.7) Basophils # (Auto) 0.1x10^3/uL (0.0-0.2) Sodium Level 148mmol/L (136-145) Potassium Level 3.7mmol/L (3.5-5.1) Chloride Level 113mmol/L (98-107) Carbon Dioxide Level 29mmol/L (21-32) Anion Gap 6 (6-14) Blood Urea Nitrogen 12mg/dL (7-20) Creatinine 0.8mg/dL (0.6-1.0) Estimated GFR (Cockcroft-Gault) 70.5 BUN/Creatinine Ratio 15 (6-20) Glucose Level 98mg/dL (70-99) Calcium Level 8.9mg/dL (8.5-10.1) Total Bilirubin 0.3mg/dL (0.2-1.0) Aspartate Amino Transf (AST/SGOT) 21U/L (15-37) Alanine Aminotransferase (ALT/SGPT) 7U/L (14-59) Alkaline Phosphatase 48U/L (46-116) Total Protein 6.2g/dL (6.4-8.2) Albumin 2.5g/dL (3.4-5.0) Albumin/Globulin Ratio 0.7 (1.0-1.7) Microbiology 11/15/16 Urine Culture - Final, Complete 11/15/16 Urine Culture Result 1 (CAT) - Final, Complete Medications Current Medications Sodium Chloride (Iv Sodium Chloride 0.9% 500ml Bag) 500 ml @ 500 mls/hr 1X ONCE IV Last administered on 11/15/16 21:30; Start 11/15/16 at 21:30; Stop at 22:29; Status DC Ondansetron HCl (Zofran) 4 mg PRN Q8HRS PRN IV NAUSEA/VOMITING; Start 11/15/16 at 23:45; Stop 11/16/16 at 23:44; Status DC Morphine Sulfate 2 mg PRN Q2HR PRN IV SEVERE PAIN; Start 11/15/16 at 23:45; Stop 11/16/16 at 23:44; Status DC Acetaminophen 650 mg 650 mg PRN Q4HRS PRN PO FEVER; Start 11/15/16 at 23:45; Stop 11/16/16 at 23:44; Status DC Ceftriaxone Sodium (Rocephin 1gm Ivpb For Omni) 50 ml @ 100 mls/hr 1X ONCE IV Last administered on 11/16/16 03:08; Start 11/16/16 at 01:00; Stop 11/16/16 at 01:29; Status DC Atenolol (Tenormin) 50 mg DAILY PO Last administered on 11/19/16 09:30; Start 11/16/16 at 09:30 Carbidopa/Levodopa (Sinemet 10/100) 1 tab TID PO Last administered on 11/19/16 00:19; Start 11/16/16 at 09:30 Vitamin D (Vitamin D3) 1,000 unit DAILY PO Last administered on 11/18/16 08:20 ; Start 11/16/16 at 09:30 Famotidine (Pepcid) 10 mg DAILY PO Last administered on 11/18/16 08:21; Start 11/16/16 at 09:30 Furosemide (Lasix) 20 mg DAILY PO Last administered on 11/18/16 08:21; Start at 09:30 Olanzapine (Zyprexa) 5 mg DAILY PO Last administered on 11/18/16 08:21; Start 11/16/16 at 09:30 Sertraline HCl (Zoloft) 25 mg DAILY PO Last administered on 11/18/16 08:20; Start 11/16/16 at 09:30 Benztropine Mesylate 2 mg 2 mg BID PO Last administered on 11/19/16 00:19; Start 11/16/16 at 09:30 Ceftriaxone Sodium 1 gm/ Sodium Chloride 50 ml @ 100 mls/hr Q24H IV Last administered on 11/19/16 00:19; Start 11/16/16 at 21:00 Sodium Chloride (Iv Sodium Chloride 0.9% 1000ml Bag) 1,000 ml @ 100 mls/hr 1X ONCE IV Last administered on 11/17/16 12:52; Start 11/17/16 at 13:00; Stop at 22:59; Status DC Ondansetron HCl (Zofran) 4 mg PRN Q6HRS PRN IV Nausea, 1st Choice; Start at 13:45; Stop 11/17/16 at 13:50; Status DC Fentanyl Citrate (Fentanyl 2ml Vial) 25 mcg PRN Q5MIN PRN IV Acute Pain; Start 11/17/16 at 13:45; Stop 11/18/16 at 13:44; Status DC Fentanyl Citrate (Fentanyl 2ml Vial) 50 mcg PRN Q5MIN PRN IV Acute Pain; Start 11/17/16 at 13:45; Stop 11/18/16 at 13:44; Status DC Morphine Sulfate 1 mg PRN Q10MIN PRN IV Mild Pain; Start 11/17/16 at 13:45; Stop 11/18/16 at 13:44; Status DC Morphine Sulfate 2 mg 2 mg PRN Q10MIN PRN IV Moderate Pain; Start 11/17/16 at 13 :45; Stop 11/18/16 at 13:44; Status DC Lactated Ringer's (Iv Lactated Ringers) 1,000 ml @ 50 mls/hr Q20H IV Last administered on 11/17/16 14:15; Start 11/17/16 at 13:34; Stop 11/18/16 at 01:33; Status DC Ondansetron HCl (Zofran) 4 mg PRN Q6HRS PRN IV Nausea, 1st Choice; Start at 13:50; Stop 11/18/16 at 13:44; Status DC Fentanyl Citrate (Fentanyl 2ml Vial) 100 mcg STK-MED ONCE .ROUTE ; Start at 14:36; Stop 11/17/16 at 14:37; Status DC Dexamethasone Sodium Phosphate (Decadron) 20 mg STK-MED ONCE .ROUTE ; Start 11/17 at 14:36; Stop 11/17/16 at 14:37; Status DC Ondansetron HCl 4 mg 4 mg STK-MED ONCE .ROUTE ; Start 11/17/16 at 14:36; Stop 11/17/16 at 14:37; Status DC Propofol (Diprivan) 20 ml @ As Directed STK-MED ONCE IV ; Start 11/17/16 at 14:36 ; Stop 11/17/16 at 14:37; Status DC Lidocaine HCl (Lidocaine HCl 2% Abboject) 100 mg STK-MED ONCE .ROUTE ; Start 11/17/16 at 14:36; Stop 11/17/16 at 14:37; Status DC Phenylephrine HCl 1 mg STK-MED ONCE IV ; Start 11/17/16 at 15:00; Stop 11/17/16 at 15:01; Status DC Sevoflurane (Ultane) 30 ml STK-MED ONCE IH ; Start 11/17/16 at 15:30; Stop at 15:31; Status DC Ondansetron HCl (Zofran) 4 mg PRN Q6HRS PRN IV NAUSEA/VOMITING; Start 11/19/16 at 07:00; Stop 11/20/16 at 06:59 Fentanyl Citrate (Fentanyl 2ml Vial) 25 mcg PRN Q5MIN PRN IV MILD PAIN; Start 11/19/16 at 07:00; Stop 11/20/16 at 06:59 Fentanyl Citrate (Fentanyl 2ml Vial) 50 mcg PRN Q5MIN PRN IV MODERATE PAIN; Start 11/19/16 at 07:00; Stop 11/20/16 at 06:59 Morphine Sulfate 1 mg 1 mg PRN Q10MIN PRN IV SEVERE PAIN; Start 11/19/16 at 06: 45; Stop 11/20/16 at 06:44 Lactated Ringer's (Iv Lactated Ringers) 1,000 ml @ 0 mls/hr Q0M IV Last administered on 11/19/16t 12:56; Start 11/19/16 at 07:00; Stop 11/19/16 at 13:00; Status DC Lidocaine HCl 2 ml PRN 1X PRN ID PRIOR TO IV START; Start 11/19/16 at 07:00; Stop 11/20/16 at 06:59 Hydromorphone HCl (Dilaudid) 0.5 mg PRN Q10MIN PRN IV SEV PAIN, Second choice; Start 11/19/16 at 06:45; Stop 11/20/16 at 06:44 Prochlorperazine Edisylate (Compazine) 5 mg PACU PRN PRN IV NAUSEA, MRX1; Start 11/19/16 at 06:45; Stop 11/20/16 at 06:44 Benztropine Mesylate (Cogentin) 2 mg STK-MED ONCE .ROUTE ; Start 11/16/16 at 09: 00; Stop 11/19/16 at 11:52; Status DC Benztropine Mesylate (Cogentin) 2 mg STK-MED ONCE .ROUTE ; Start 11/16/16 at 09: 00; Stop 11/19/16 at 11:52; Status DC Benztropine Mesylate (Cogentin) 2 mg STK-MED ONCE .ROUTE ; Start 11/17/16 at 09: 00; Stop 11/19/16 at 11:52; Status DC Benztropine Mesylate (Cogentin) 2 mg STK-MED ONCE .ROUTE ; Start 11/18/16 at 09: 00; Stop 11/19/16 at 11:53; Status DC Benztropine Mesylate 2 mg 2 mg STK-MED ONCE .ROUTE ; Start 11/19/16 at 01:00; Stop 11/19/16 at 11:53; Status DC Cefazolin Sodium/ Dextrose 50 ml @ 100 mls/hr 1X PREOP IV ; Start 11/19/16 at 13:00; Stop 11/20/16 at 18:00 Cefazolin Sodium/ Dextrose (Ancef 2gm Premix) 50 ml @ As Directed STK-MED ONCE IV ; Start 11/19/16 at 13:03; Stop 11/19/16 at 13:04; Status DC Active Scripts Active Reported Famotidine 20 Mg Tablet 10 Mg PO DAILY Vitamin D3 (Cholecalciferol (Vitamin D3)) 1,000 Unit Tablet 1,000 Unit PO DAILY Furosemide 20 Mg Tablet 20 Mg PO DAILY Sertraline Hcl 25 Mg Tablet 25 Mg PO DAILY Atenolol 50 Mg Tablet 50 Mg PO DAILY Olanzapine 5 Mg Tablet 5 Mg PO DAILY Benztropine Mesylate 2 Mg Tablet 2 Mg PO BID Carbidopa-Levodopa 10-100 Tab (Carbidopa/Levodopa) 1 Each Tablet 1 Each PO TID Vitals/I & O Vital Sign - Last 24 Hours 11/18/16 11/18/16 11/18/16 11/18/16 14:49 19:00 21:00 22:47 Temp 98.2 98.8 98.8 98.2 98.8 98.8 Pulse 50 63 93 Resp B/P 99/48 118/70 102/56 Pulse Ox 97 94 93 O2 Delivery Nasal Cannula Nasal Cannula Nasal Cannula O2 Flow Rate 2.0 3.0 2.0 3.0 11/19/16 11/19/16 11/19/16 11/19/16 07:15 08:00 09:30 10:40 Temp 98.6 98.5 98.6 98.5 Pulse 250 250 54 Resp 18 B/P 123/67 123/67 111/54 Pulse Ox 92 97 O2 Delivery Nasal Cannula Nasal Cannula O2 Flow Rate 3.0 3.0 3.0 11/19/16 12:46 Temp 98.6 98.6 Pulse 59 Resp 21 B/P 142/68 Pulse Ox 94 O2 Delivery Nasal Cannula O2 Flow Rate 2 Intake and Output 11/18/16 11/18/16 11/19/16 15:00 23:00 07:00 Intake Total 520 ml 280 ml 600 ml Output Total 450 ml 400 ml Balance 520 ml -170 ml 200 ml ERIC MORAES MD Nov 19, 2016 13:12
[2016-11-19] MEDS ORDERED: ROCURONIUM 50 MG/5 ML VIAL. ONE ×2 (13:35→14:26)
[2016-11-19] MEDS ORDERED: DESFLURANE 61 TO 120 MINUTES IH ONE ×2 (13:35→14:58)
[2016-11-19] MEDS ORDERED: DEXAMETHASONE SOD PHOS 20 MG/5 ML VIAL. ONE (13:35)
[2016-11-19] MEDS ORDERED: ONDANSETRON PF 4 MG/2 ML VIAL. ONE ×2 (13:35→14:44)
[2016-11-19] MEDS ORDERED: LIDOCAINE 2% 100 MG/5 ML SYRINGE. ONE (13:35)
[2016-11-19] MEDS ORDERED: PROPOFOL 20 ML IV ONE (13:35)
[2016-11-19] MEDS ORDERED: PHENYLEPHRINE in 0.9% NACL PF 1 MG/10 ML DISP.SYRIN. IV ONE ×2 (13:37→15:25)
[2016-11-19] MEDS ORDERED: FENTANYL PF 100 MCG/2 ML VIAL. ONE (13:59)
[2016-11-19] MEDS: AA 3%/ELECTROLYTE-TPN SOLN/GLY 1,000 ML IV SCH (14:00)
[2016-11-19] MEDS ORDERED: GLYCOPYRROLATE 1 MG/5 ML VIAL. ONE (14:44)
[2016-11-19] MEDS ORDERED: NEOSTIGMINE METHYLSULFATE 5 MG/5 ML SYRINGE. ONE (14:44)
[2016-11-19] MEDS ORDERED: EPHEDRINE PF IN SALINE 50 MG/5 ML DISP.SYRIN. IV ONE (15:05)
[2016-11-19] MEDS ORDERED: METHYLENE BLUE 1% 1 ML VIAL. ONE (15:11)
[2016-11-19] MEDS ORDERED: VASOPRESSIN 20 UNIT/ML VIAL. ONE (15:54)
[2016-11-19] MEDS ORDERED: EPINEPHRINE 1 MG/10 ML SYRINGE. ONE (15:56)
[2016-11-19 18:58] LABS: HEMATOCRIT 35.4 % (36.0-47.0); HEMOGLOBIN 11.8 g/dL (12.0-15.5); RED BLOOD COUNT 3.9 x10^6/uL (3.50-5.40); RED CELL DISTRIBUTION WIDTH 14.2 % (11.5-14.5); WHITE BLOOD COUNT 23.4 x10^3/uL (4.0-11.0)
[2016-11-19 19:02] LABS: HCO3 ABG 18 mmol/L (21-28); PCO2 ABG 29 mmHg (35-46); PH ABG 7.39 (7.35-7.45); PO2 ABG 428 mmHg (65-108); SAT O2 ABG 99 % (92-99)
[2016-11-19 19:05] LABS: FIO2 ABG 90
[2016-11-19] MEDS ORDERED: IV NORMAL SALINE 1000ML BAG 1,000 ML IV ONE (19:30)
--- NOTE | 2016-11-19 21:14 | PDOC ---
BRIEF OPERATIVE NOTE Pre-Op Diagnosis PMB Fibroids Post-Op Diagnosis Same Procedure Performed DEMETRIUS and BSO Surgeon ;celso Anesthesia Type: General Blood Loss [id number] Specimens Obtained Uterus tubes and ovaries Complications None ABAD KIRKLAND MD Nov 19, 2016 21:14
--- NOTE | 2016-11-19 21:25 | RAD ---
PROCEDURE AP chest radiograph 11/19/2016 HISTORY Post intubation. FINDINGS An AP portable erect digital radiograph of the chest obtained. Comparison study is dated 03/01/2014. An ET tube has been placed. The tip of this tube overlies the trachea 2 centimeters below the level of clavicles. A NG tube has been placed. The tip of this tube is off this radiograph in the region of the body of the stomach. The cardiac silhouette is mildly enlarged. The thoracic aorta is mildly tortuous. Patchy left lower lobe atelectasis and/or infiltrate is noted. No pneumothorax or large pleural effusion is seen. There is diffuse osteopenia of the visualized bony structures. Degenerative changes are seen involving the thoracic spine and both shoulders. IMPRESSION 1. ET and NG tube position as outlined above. 2. Left lower lobe atelectasis and/or infiltrate. Electronically signed by: Jarred Hill MD (Nov 19, 2016 21:24:36)
[2016-11-19] MEDS ORDERED: NOREPINEPHRINE VIAL 8 MG in IV NORMAL SALINE 250ML 250 ML IV PRN (21:30)
--- NOTE | 2016-11-19 21:31 | RAD ---
PROCEDURE AP abdomen radiograph 11/19/2016 HISTORY Post NG tube placement. FINDINGS An AP portable erect digital radiograph of the abdomen was obtained. A NG tube has been placed. The tip of this tube overlies the lateral aspect of the body of the stomach. Air distention of the stomach and small bowel loops is seen. The abdominal bowel gas pattern is nonspecific. Air is seen beneath the medial aspect of the right hemidiaphragm medial to the liver. There is some suggestion of a haustral marking in this region which could reflect air within the transverse colon. Pneumoperitoneum is not excluded, however. There is diffuse osteopenia of the visualized bony structures. Degenerative changes are seen involving thoracic and lumbar spine. IMPRESSION 1. The tip of the NG tube overlies the body of the stomach. 2. Nonspecific bowel gas pattern. 3. Air is seen beneath the medial aspect of the right hemidiaphragm medial to the liver. There is some suggestion of a haustral marking in this region which could reflect air within the transverse colon. Pneumoperitoneum is not excluded, however. Electronically signed by: Jarred Hill MD (Nov 19, 2016 21:30:18)
[2016-11-19] MEDS: PROPOFOL 100 ML IV PRN (21:43)
[2016-11-20] VITALS (25 sets, daily range): BP systolic 78–141; BP diastolic 44–100
[2016-11-20] MEDS: AA 3%/ELECTROLYTE-TPN SOLN/GLY 1,000 ML IV SCH ×2 (02:41→15:03)
[2016-11-20 05:24] LABS: BASO # 0.1 x10^3/uL (0.0-0.2); BASO % 0 % (0-3); EOS % 0 % (0-3); HEMATOCRIT 38.6 % (36.0-47.0); HEMOGLOBIN 12.7 g/dL (12.0-15.5); LYMPH # 1.3 x10^3/uL (1.0-4.8); LYMPH % 5 % (24-48); MEAN CORPUSCULAR HEMOGLOBIN 30 pg (25-35); MEAN CORPUSCULAR HGB CONC 33 g/dL (31-37); MEAN CORPUSCULAR VOLUME 90 fL (79-100); MONO % 6 % (0-9); NEUT % 88 % (31-73); PLATELET COUNT 245 x10^3/uL (140-400); RED BLOOD COUNT 4.28 x10^6/uL (3.50-5.40); RED CELL DISTRIBUTION WIDTH 14.5 % (11.5-14.5); WHITE BLOOD COUNT 23.1 x10^3/uL (4.0-11.0)
[2016-11-20 06:09] LABS: ALBUMIN 2.1 g/dL (3.4-5.0); ALBUMIN/GLOBULIN RATIO 0.7 (1.0-1.7); CREATININE 1.2 mg/dL (0.6-1.0); GFR 44.2; POTASSIUM 3.9 mmol/L (3.5-5.1); TOTAL BILIRUBIN 0.5 mg/dL (0.2-1.0); TOTAL PROTEIN 5.2 g/dL (6.4-8.2)
[2016-11-20 07:21] LABS: % EOS 1 % (0-5); PLT ESTIMATE ADEQUATE (ADEQUATE)
--- NOTE | 2016-11-20 07:25 | PDOC ---
Provider Note Provider Note [id number] acute resp fail s/p emergent justo bso for vag bleeding. cont vent support LEANDRA LEA MD Nov 20, 2016 07:25
[2016-11-20 08:18] LABS: HCO3 ABG 19 mmol/L (21-28); PCO2 ABG 28 mmHg (35-46); PH ABG 7.44 (7.35-7.45); PO2 ABG 161 mmHg (65-108); SAT O2 ABG 99 % (92-99)
--- NOTE | 2016-11-20 08:19 | CONS ---
DATE OF CONSULTATION: 11/20/2016 I was asked to see this 70-year-old lady for acute respiratory failure. HISTORY OF PRESENT ILLNESS: The patient is currently on the ventilator and is not able to give me any information. All of the information was obtained from chart and nursing staff. She underwent emergency hysterectomy for vaginal bleeding. She is a bed bound for Parkinson disease. She has started dyskinesia. She lives at home with her brothers, who provide her care. The patient is currently on the ventilator. She is on Levophed. She opens her eyes, follows some commands. She does not answer any of my questions. PAST MEDICAL HISTORY: Fibroid, anxiety, depression, hypertension, schizophrenia and Parkinson. FAMILY HISTORY: Unable to obtain, there is no family member available. SOCIAL HISTORY: Per chart, there is no history of smoking. ALLERGIES: No known drug allergies. MEDICATIONS: Currently she is on fentanyl, Levophed, cefazolin, Zoloft, Zyprexa, Lasix, Pepcid, vitamin D, carbidopa and atenolol. REVIEW OF SYSTEMS: As mentioned as above. I have discussed the patient with RN other systems otherwise negative. PHYSICAL EXAMINATION: GENERAL: This is an elderly lady. VITAL SIGNS: Her O2 saturation is 98%, respiratory rate 14, heart rate 68, blood pressure 111/56, temperature 98.2. HEENT: Normocephalic, atraumatic. Pupils are equal, round and reactive to light. She is orally intubated. Nose is clear. NECK: There is no JVD, lymphadenopathy or thyromegaly. CARDIOVASCULAR: Regular rate and rhythm. PMI is nondisplaced. CHEST: Inspection is normal. LUNGS: There are bibasilar crackles, dullness at the left base. ABDOMEN: Soft. There is no bowel sounds, status post surgery. EXTREMITIES: There is edema. LYMPHATICS: There is no lymphadenopathy. SKIN: Pale. NEUROLOGIC: She does not follow my commands. LABORATORY DATA: I reviewed the following lab data: Chest x-ray shows ET tube was in good position. There is minimal left atelectasis. WBC 23.1, hemoglobin 12.7, platelets 245. ABG: pH 7.39, pCO2 of 29, pO2 of 428. Sodium 146, potassium 3.9, chloride 113, CO2 of 19, BUN 21, creatinine 1.2. Total bili 0.5, AST 21, ALT 8, alkaline phosphatase 37, albumin 2.1. Her GFR is 44. INR 1.1. IMPRESSION: 1. Acute respiratory failure, post op. 2. Abnormal chest x-ray. 3. Atelectasis. 4. Vaginal bleeding, status post emergency total abdominal hysterectomy and bilateral salpingo-oophorectomy. Status post PRBC transfusion. 5. Parkinson. PLAN AND RECOMMENDATIONS: 1. Titrate FiO2 to keep O2 saturation 94%. 2. Continue ventilator support. Ventilator setting was reviewed. We will do an ABG. Change vent setting per ABG. 3. I personally put the patient on pressure support 5, PEEP of 5 (spontaneous breathing trail). The patient's tidal volume was only 100 mL. The patient is not ready for extubation. She also has not made any urine. Nephrology is consulted and also she is on pressors. 4. A.m. ABG on portable chest x-ray. 5. Elevate head of bed. 6. Start Pepcid for stress ulcer prophylaxis. 7. Continue pressors to keep mean arterial pressure 65. 8. Monitor respiratory status very closely. 9. The findings and recommendations were discussed with RN. Thank you very much for allowing me to participate in care of this very nice lady. LEANDRA LEA M.D. ADRIENNE RODRIGUEZ/leigha JOB#: [id number] / [id number] [place]
[2016-11-20 08:21] LABS: FIO2 ABG 40
[2016-11-20] MEDS: SERTRALINE 25 MG TABLET. PO SCH (08:37)
[2016-11-20] MEDS: OLANZAPINE 5 MG TABLET. PO SCH (08:37)
[2016-11-20] MEDS: BENZTROPINE MESYLATE 1 MG TABLET. PO SCH ×2 (08:37→21:22)
[2016-11-20] MEDS: FUROSEMIDE 20 MG TABLET PO SCH (08:38)
[2016-11-20] MEDS: PROPOFOL 100 ML IV PRN (08:38)
[2016-11-20] MEDS: CHOLECALCIFEROL (VITAMIN D3) 1,000 UNIT TABLET PO SCH (08:38)
--- NOTE | 2016-11-20 09:26 | PDOC ---
Infectious Disease Note Vital Sign Vital Signs Vital Signs Date Time Temp Pulse Resp B/P Pulse Ox O2 Delivery O2 Flow Rate FiO2 11/20/16 09:00 68 14 133/64 100 Ventilator 11/20/16 08:00 100.1 100.1 11/19/16 12:46 2 Labs Lab Laboratory Tests Test 11/19/16 18:40 11/19/16 18:47 11/20/16 03:30 11/20/16 04:44 White Blood Count 23.4x10^3/uL (4.0-11.0) 23.1x10^3/uL (4.0-11.0) Red Blood Count 3.90x10^6/uL (3.50-5.40) 4.28x10^6/uL (3.50-5.40) Hemoglobin 11.8g/dL (12.0-15.5) 12.7g/dL (12.0-15.5) Hematocrit 35.4% (36.0-47.0) 38.6% (36.0-47.0) Mean Corpuscular Volume 91fL (79-100) 90fL (79-100) Mean Corpuscular Hemoglobin 30pg (25-35) 30pg (25-35) Mean Corpuscular Hemoglobin Concent 33g/dL (31-37) 33g/dL (31-37) Red Cell Distribution Width 14.2% (11.5-14.5) 14.5% (11.5-14.5) Platelet Count 226x10^3/uL (140-400) 245x10^3/uL (140-400) O2 Saturation 99% (92-99) Arterial Blood pH 7.39 (7.35-7.45) Arterial Blood pCO2 at Patient Temp 29mmHg (35-46) Arterial Blood pO2 at Patient Temp 428mmHg (65-108) Arterial Blood HCO3 18mmol/L (21-28) Arterial Blood Base Excess -6mmol/L (-3-3) FiO2 90 Sodium Level 146mmol/L (136-145) Potassium Level 3.9mmol/L (3.5-5.1) Chloride Level 113mmol/L (98-107) Carbon Dioxide Level 19mmol/L (21-32) Anion Gap 14 (6-14) Blood Urea Nitrogen 21mg/dL (7-20) Creatinine 1.2mg/dL (0.6-1.0) Estimated GFR (Cockcroft-Gault) 44.2 BUN/Creatinine Ratio 18 (6-20) Glucose Level 193mg/dL (70-99) Calcium Level 8.0mg/dL (8.5-10.1) Total Bilirubin 0.5mg/dL (0.2-1.0) Aspartate Amino Transf (AST/SGOT) 21U/L (15-37) Alanine Aminotransferase (ALT/SGPT) 8U/L (14-59) Alkaline Phosphatase 37U/L (46-116) Total Protein 5.2g/dL (6.4-8.2) Albumin 2.1g/dL (3.4-5.0) Albumin/Globulin Ratio 0.7 (1.0-1.7) Neutrophils (%) (Auto) 88% (31-73) Lymphocytes (%) (Auto) 5% (24-48) Monocytes (%) (Auto) 6% (0-9) Eosinophils (%) (Auto) 0% (0-3) Basophils (%) (Auto) 0% (0-3) Neutrophils # (Auto) 20.3x10^3uL (1.8-7.7) Lymphocytes # (Auto) 1.3x10^3/uL (1.0-4.8) Monocytes # (Auto) 1.4x10^3/uL (0.0-1.1) Eosinophils # (Auto) 0.0x10^3/uL (0.0-0.7) Basophils # (Auto) 0.1x10^3/uL (0.0-0.2) Segmented Neutrophils % 77% (35-66) Band Neutrophils % 9% (0-9) Lymphocytes % 7% (24-48) Monocytes % 6% (0-10) Eosinophils % 1% (0-5) Platelet Estimate Adequate (ADEQUATE) Test 11/20/16 07:45 O2 Saturation 99% (92-99) Arterial Blood pH 7.44 (7.35-7.45) Arterial Blood pCO2 at Patient Temp 28mmHg (35-46) Arterial Blood pO2 at Patient Temp 161mmHg (65-108) Arterial Blood HCO3 19mmol/L (21-28) Arterial Blood Base Excess -4mmol/L (-3-3) FiO2 40 Objective Assessment Fever, ? post-op, s/p PRBCs , ? UTI Leukocytosis, ? post-op, steroids Hypotension, on Levophed weaning down s/p DEMETRIUS and bilat salpingo-oophorectomy, / Post-op respiratory failure Renal insufficiency Parkinson's disease w/ tardive dyskinesia Plan Plan of Care Change Rocephin to Zosyn per Dr. Abraham Loja BC pending Monitor labs, temp Supportive care Thank you [id number] Attending Co-Sign The patient was seen and interviewed as well as examined at the bedside. The chart was reviewed. The case was discussed. Agree with the plan of care. SULAIMAN COYLE APRN Nov 20, 2016 09:26 CHRISTIN LOJA MD Nov 20, 2016 14:22
--- NOTE | 2016-11-20 09:44 | RAD ---
Portable AP semiupright chest x-ray performed at 04 50 Clinical indications: Intubation. Follow-up study. Comparison: November 19, 2016. IMPRESSION: ET tube and NG tube remain in place. Gaseous distention of the stomach seen previously has decreased. Again seen is linear atelectasis of the left lower lung zone which is stable. No new lung infiltrate or pulmonary edema or pleural effusion is seen. No pneumothorax is evident. The heart size and mediastinum are stable.
[2016-11-20] MEDS ORDERED: IV NORMAL SALINE 1000ML BAG 1,000 ML IV SCH (10:00)
[2016-11-20] MEDS: CARBIDOPA/LEVODOPA 10/100MG TABLET PO SCH ×3 (10:15→21:23)
--- NOTE | 2016-11-20 11:01 | PDOC ---
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) Acute blood loss anemia sec to above UTI, in an elderly mild malnutrition, worsening hypernatremia Parkinsons, she reports as tardive dyskinesia, weakness and debility depression or anxiety, History of Present Illness History of Present Illness Seen in ICU intubated but awake VEnt: PEEP 7 Fio2 60% ABG reviewed ok BUt WBC jumped to 23, fevers ANd NOW ON LEVOPHED CXR reviewed PLAN: BC now COnsult ID Pressor running thru peripheral On pPN If will be getting PICC,can do TPN CBC again tiana (leukocytosis) LActate - pending URINE cx shows more than 3 orgs - NEED TO RPT UA collection Dw CSO CC 30 Vitals Vitals Vital Signs Date Time Temp Pulse Resp B/P Pulse Ox O2 Delivery O2 Flow Rate FiO2 11/20/16 10:00 69 14 105/56 100 Ventilator 11/20/16 08:00 100.1 100.1 11/19/16 12:46 2 Physical Exam General: Alert, Oriented X3, Cooperative Heart: Regular rate, No murmurs Lungs: Clear, Other Abdomen: Normal bowel sounds, Soft Extremities: No clubbing, No edema Skin: No breakdown Labs LABS Laboratory Tests Test 11/19/16 18:40 11/19/16 18:47 11/20/16 03:30 11/20/16 04:44 White Blood Count 23.4x10^3/uL (4.0-11.0) 23.1x10^3/uL (4.0-11.0) Red Blood Count 3.90x10^6/uL (3.50-5.40) 4.28x10^6/uL (3.50-5.40) Hemoglobin 11.8g/dL (12.0-15.5) 12.7g/dL (12.0-15.5) Hematocrit 35.4% (36.0-47.0) 38.6% (36.0-47.0) Mean Corpuscular Volume 91fL (79-100) 90fL (79-100) Mean Corpuscular Hemoglobin 30pg (25-35) 30pg (25-35) Mean Corpuscular Hemoglobin Concent 33g/dL (31-37) 33g/dL (31-37) Red Cell Distribution Width 14.2% (11.5-14.5) 14.5% (11.5-14.5) Platelet Count 226x10^3/uL (140-400) 245x10^3/uL (140-400) O2 Saturation 99% (92-99) Arterial Blood pH 7.39 (7.35-7.45) Arterial Blood pCO2 at Patient Temp 29mmHg (35-46) Arterial Blood pO2 at Patient Temp 428mmHg (65-108) Arterial Blood HCO3 18mmol/L (21-28) Arterial Blood Base Excess -6mmol/L (-3-3) FiO2 90 Sodium Level 146mmol/L (136-145) Potassium Level 3.9mmol/L (3.5-5.1) Chloride Level 113mmol/L (98-107) Carbon Dioxide Level 19mmol/L (21-32) Anion Gap 14 (6-14) Blood Urea Nitrogen 21mg/dL (7-20) Creatinine 1.2mg/dL (0.6-1.0) Estimated GFR (Cockcroft-Gault) 44.2 BUN/Creatinine Ratio 18 (6-20) Glucose Level 193mg/dL (70-99) Calcium Level 8.0mg/dL (8.5-10.1) Total Bilirubin 0.5mg/dL (0.2-1.0) Aspartate Amino Transf (AST/SGOT) 21U/L (15-37) Alanine Aminotransferase (ALT/SGPT) 8U/L (14-59) Alkaline Phosphatase 37U/L (46-116) Total Protein 5.2g/dL (6.4-8.2) Albumin 2.1g/dL (3.4-5.0) Albumin/Globulin Ratio 0.7 (1.0-1.7) Neutrophils (%) (Auto) 88% (31-73) Lymphocytes (%) (Auto) 5% (24-48) Monocytes (%) (Auto) 6% (0-9) Eosinophils (%) (Auto) 0% (0-3) Basophils (%) (Auto) 0% (0-3) Neutrophils # (Auto) 20.3x10^3uL (1.8-7.7) Lymphocytes # (Auto) 1.3x10^3/uL (1.0-4.8) Monocytes # (Auto) 1.4x10^3/uL (0.0-1.1) Eosinophils # (Auto) 0.0x10^3/uL (0.0-0.7) Basophils # (Auto) 0.1x10^3/uL (0.0-0.2) Segmented Neutrophils % 77% (35-66) Band Neutrophils % 9% (0-9) Lymphocytes % 7% (24-48) Monocytes % 6% (0-10) Eosinophils % 1% (0-5) Platelet Estimate Adequate (ADEQUATE) Test 11/20/16 07:45 O2 Saturation 99% (92-99) Arterial Blood pH 7.44 (7.35-7.45) Arterial Blood pCO2 at Patient Temp 28mmHg (35-46) Arterial Blood pO2 at Patient Temp 161mmHg (65-108) Arterial Blood HCO3 19mmol/L (21-28) Arterial Blood Base Excess -4mmol/L (-3-3) FiO2 40 Review of Systems Review of Systems intuabted Assessment and Plan Assessmemt and Plan Problems Medical Problems: (1) Vaginal bleeding Status: Acute Problems: Comment Review of Relevant I have reviewed the following items clovis (where applicable) has been applied. Labs Laboratory Tests Test 11/19/16 04:15 11/19/16 18:40 11/19/16 18:47 11/20/16 03:30 White Blood Count 9.9x10^3/uL (4.0-11.0) 23.4x10^3/uL (4.0-11.0) Red Blood Count 3.71x10^6/uL (3.50-5.40) 3.90x10^6/uL (3.50-5.40) Hemoglobin 10.9g/dL (12.0-15.5) 11.8g/dL (12.0-15.5) Hematocrit 33.3% (36.0-47.0) 35.4% (36.0-47.0) Mean Corpuscular Volume 90fL (79-100) 91fL (79-100) Mean Corpuscular Hemoglobin 29pg (25-35) 30pg (25-35) Mean Corpuscular Hemoglobin Concent 33g/dL (31-37) 33g/dL (31-37) Red Cell Distribution Width 14.0% (11.5-14.5) 14.2% (11.5-14.5) Platelet Count 202x10^3/uL (140-400) 226x10^3/uL (140-400) Neutrophils (%) (Auto) 67% (31-73) Lymphocytes (%) (Auto) 25% (24-48) Monocytes (%) (Auto) 7% (0-9) Eosinophils (%) (Auto) 1% (0-3) Basophils (%) (Auto) 1% (0-3) Neutrophils # (Auto) 6.6x10^3uL (1.8-7.7) Lymphocytes # (Auto) 2.5x10^3/uL (1.0-4.8) Monocytes # (Auto) 0.6x10^3/uL (0.0-1.1) Eosinophils # (Auto) 0.1x10^3/uL (0.0-0.7) Basophils # (Auto) 0.1x10^3/uL (0.0-0.2) Sodium Level 148mmol/L (136-145) 146mmol/L (136-145) Potassium Level 3.7mmol/L (3.5-5.1) 3.9mmol/L (3.5-5.1) Chloride Level 113mmol/L (98-107) 113mmol/L (98-107) Carbon Dioxide Level 29mmol/L (21-32) 19mmol/L (21-32) Anion Gap 6 (6-14) 14 (6-14) Blood Urea Nitrogen 12mg/dL (7-20) 21mg/dL (7-20) Creatinine 0.8mg/dL (0.6-1.0) 1.2mg/dL (0.6-1.0) Estimated GFR (Cockcroft-Gault) 70.5 44.2 BUN/Creatinine Ratio 15 (6-20) 18 (6-20) Glucose Level 98mg/dL (70-99) 193mg/dL (70-99) Calcium Level 8.9mg/dL (8.5-10.1) 8.0mg/dL (8.5-10.1) Total Bilirubin 0.3mg/dL (0.2-1.0) 0.5mg/dL (0.2-1.0) Aspartate Amino Transf (AST/SGOT) 21U/L (15-37) 21U/L (15-37) Alanine Aminotransferase (ALT/SGPT) 7U/L (14-59) 8U/L (14-59) Alkaline Phosphatase 48U/L (46-116) 37U/L (46-116) Total Protein 6.2g/dL (6.4-8.2) 5.2g/dL (6.4-8.2) Albumin 2.5g/dL (3.4-5.0) 2.1g/dL (3.4-5.0) Albumin/Globulin Ratio 0.7 (1.0-1.7) 0.7 (1.0-1.7) O2 Saturation 99% (92-99) Arterial Blood pH 7.39 (7.35-7.45) Arterial Blood pCO2 at Patient Temp 29mmHg (35-46) Arterial Blood pO2 at Patient Temp 428mmHg (65-108) Arterial Blood HCO3 18mmol/L (21-28) Arterial Blood Base Excess -6mmol/L (-3-3) FiO2 90 Test 11/20/16 04:44 11/20/16 07:45 White Blood Count 23.1x10^3/uL (4.0-11.0) Red Blood Count 4.28x10^6/uL (3.50-5.40) Hemoglobin 12.7g/dL (12.0-15.5) Hematocrit 38.6% (36.0-47.0) Mean Corpuscular Volume 90fL (79-100) Mean Corpuscular Hemoglobin 30pg (25-35) Mean Corpuscular Hemoglobin Concent 33g/dL (31-37) Red Cell Distribution Width 14.5% (11.5-14.5) Platelet Count 245x10^3/uL (140-400) Neutrophils (%) (Auto) 88% (31-73) Lymphocytes (%) (Auto) 5% (24-48) Monocytes (%) (Auto) 6% (0-9) Eosinophils (%) (Auto) 0% (0-3) Basophils (%) (Auto) 0% (0-3) Neutrophils # (Auto) 20.3x10^3uL (1.8-7.7) Lymphocytes # (Auto) 1.3x10^3/uL (1.0-4.8) Monocytes # (Auto) 1.4x10^3/uL (0.0-1.1) Eosinophils # (Auto) 0.0x10^3/uL (0.0-0.7) Basophils # (Auto) 0.1x10^3/uL (0.0-0.2) Segmented Neutrophils % 77% (35-66) Band Neutrophils % 9% (0-9) Lymphocytes % 7% (24-48) Monocytes % 6% (0-10) Eosinophils % 1% (0-5) Platelet Estimate Adequate (ADEQUATE) O2 Saturation 99% (92-99) Arterial Blood pH 7.44 (7.35-7.45) Arterial Blood pCO2 at Patient Temp 28mmHg (35-46) Arterial Blood pO2 at Patient Temp 161mmHg (65-108) Arterial Blood HCO3 19mmol/L (21-28) Arterial Blood Base Excess -4mmol/L (-3-3) FiO2 40 Laboratory Tests Test 11/19/16 18:40 11/19/16 18:47 11/20/16 03:30 11/20/16 04:44 White Blood Count 23.4x10^3/uL (4.0-11.0) 23.1x10^3/uL (4.0-11.0) Red Blood Count 3.90x10^6/uL (3.50-5.40) 4.28x10^6/uL (3.50-5.40) Hemoglobin 11.8g/dL (12.0-15.5) 12.7g/dL (12.0-15.5) Hematocrit 35.4% (36.0-47.0) 38.6% (36.0-47.0) Mean Corpuscular Volume 91fL (79-100) 90fL (79-100) Mean Corpuscular Hemoglobin 30pg (25-35) 30pg (25-35) Mean Corpuscular Hemoglobin Concent 33g/dL (31-37) 33g/dL (31-37) Red Cell Distribution Width 14.2% (11.5-14.5) 14.5% (11.5-14.5) Platelet Count 226x10^3/uL (140-400) 245x10^3/uL (140-400) O2 Saturation 99% (92-99) Arterial Blood pH 7.39 (7.35-7.45) Arterial Blood pCO2 at Patient Temp 29mmHg (35-46) Arterial Blood pO2 at Patient Temp 428mmHg (65-108) Arterial Blood HCO3 18mmol/L (21-28) Arterial Blood Base Excess -6mmol/L (-3-3) FiO2 90 Sodium Level 146mmol/L (136-145) Potassium Level 3.9mmol/L (3.5-5.1) Chloride Level 113mmol/L (98-107) Carbon Dioxide Level 19mmol/L (21-32) Anion Gap 14 (6-14) Blood Urea Nitrogen 21mg/dL (7-20) Creatinine 1.2mg/dL (0.6-1.0) Estimated GFR (Cockcroft-Gault) 44.2 BUN/Creatinine Ratio 18 (6-20) Glucose Level 193mg/dL (70-99) Calcium Level 8.0mg/dL (8.5-10.1) Total Bilirubin 0.5mg/dL (0.2-1.0) Aspartate Amino Transf (AST/SGOT) 21U/L (15-37) Alanine Aminotransferase (ALT/SGPT) 8U/L (14-59) Alkaline Phosphatase 37U/L (46-116) Total Protein 5.2g/dL (6.4-8.2) Albumin 2.1g/dL (3.4-5.0) Albumin/Globulin Ratio 0.7 (1.0-1.7) Neutrophils (%) (Auto) 88% (31-73) Lymphocytes (%) (Auto) 5% (24-48) Monocytes (%) (Auto) 6% (0-9) Eosinophils (%) (Auto) 0% (0-3) Basophils (%) (Auto) 0% (0-3) Neutrophils # (Auto) 20.3x10^3uL (1.8-7.7) Lymphocytes # (Auto) 1.3x10^3/uL (1.0-4.8) Monocytes # (Auto) 1.4x10^3/uL (0.0-1.1) Eosinophils # (Auto) 0.0x10^3/uL (0.0-0.7) Basophils # (Auto) 0.1x10^3/uL (0.0-0.2) Segmented Neutrophils % 77% (35-66) Band Neutrophils % 9% (0-9) Lymphocytes % 7% (24-48) Monocytes % 6% (0-10) Eosinophils % 1% (0-5) Platelet Estimate Adequate (ADEQUATE) Test 11/20/16 07:45 O2 Saturation 99% (92-99) Arterial Blood pH 7.44 (7.35-7.45) Arterial Blood pCO2 at Patient Temp 28mmHg (35-46) Arterial Blood pO2 at Patient Temp 161mmHg (65-108) Arterial Blood HCO3 19mmol/L (21-28) Arterial Blood Base Excess -4mmol/L (-3-3) FiO2 40 Microbiology 11/15/16 Urine Culture - Final, Complete 11/15/16 Urine Culture Result 1 (CAT) - Final, Complete Medications Current Medications Sodium Chloride (Iv Sodium Chloride 0.9% 500ml Bag) 500 ml @ 500 mls/hr 1X ONCE IV Last administered on 11/15/16 21:30; Start 11/15/16 at 21:30; Stop at 22:29; Status DC Ondansetron HCl (Zofran) 4 mg PRN Q8HRS PRN IV NAUSEA/VOMITING; Start 11/15/16 at 23:45; Stop 11/16/16 at 23:44; Status DC Morphine Sulfate 2 mg PRN Q2HR PRN IV SEVERE PAIN; Start 11/15/16 at 23:45; Stop 11/16/16 at 23:44; Status DC Acetaminophen 650 mg 650 mg PRN Q4HRS PRN PO FEVER; Start 11/15/16 at 23:45; Stop 11/16/16 at 23:44; Status DC Ceftriaxone Sodium (Rocephin 1gm Ivpb For Omni) 50 ml @ 100 mls/hr 1X ONCE IV Last administered on 11/16/16 03:08; Start 11/16/16 at 01:00; Stop 11/16/16 at 01:29; Status DC Atenolol (Tenormin) 50 mg DAILY PO Last administered on 11/19/16 09:30; Start 11/16/16 at 09:30; Stop 11/20/16 at 08:36; Status DC Carbidopa/Levodopa (Sinemet 10/100) 1 tab TID PO Last administered on 11/20/16 10:15; Start 11/16/16 at 09:30 Vitamin D (Vitamin D3) 1,000 unit DAILY PO Last administered on 11/20/16 08:38 ; Start 11/16/16 at 09:30 Famotidine (Pepcid) 10 mg DAILY PO Last administered on 11/18/16 08:21; Start 11/16/16 at 09:30; Stop 11/20/16 at 07:28; Status DC Furosemide (Lasix) 20 mg DAILY PO Last administered on 11/18/16 08:21; Start at 09:30 Olanzapine (Zyprexa) 5 mg DAILY PO Last administered on 11/20/16 08:37; Start 11/16/16 at 09:30 Sertraline HCl (Zoloft) 25 mg DAILY PO Last administered on 11/20/16 08:37; Start 11/16/16 at 09:30 Benztropine Mesylate 2 mg 2 mg BID PO Last administered on 11/20/16 08:37; Start 11/16/16 at 09:30 Ceftriaxone Sodium 1 gm/ Sodium Chloride 50 ml @ 100 mls/hr Q24H IV Last administered on 11/19/16 21:43; Start 11/16/16 at 21:00; Stop 11/20/16 at 10:05; Status DC Sodium Chloride (Iv Sodium Chloride 0.9% 1000ml Bag) 1,000 ml @ 100 mls/hr 1X ONCE IV Last administered on 11/17/16 12:52; Start 11/17/16 at 13:00; Stop at 22:59; Status DC Ondansetron HCl (Zofran) 4 mg PRN Q6HRS PRN IV Nausea, 1st Choice; Start at 13:45; Stop 11/17/16 at 13:50; Status DC Fentanyl Citrate (Fentanyl 2ml Vial) 25 mcg PRN Q5MIN PRN IV Acute Pain; Start 11/17/16 at 13:45; Stop 11/18/16 at 13:44; Status DC Fentanyl Citrate (Fentanyl 2ml Vial) 50 mcg PRN Q5MIN PRN IV Acute Pain; Start 11/17/16 at 13:45; Stop 11/18/16 at 13:44; Status DC Morphine Sulfate 1 mg PRN Q10MIN PRN IV Mild Pain; Start 11/17/16 at 13:45; Stop 11/18/16 at 13:44; Status DC Morphine Sulfate 2 mg 2 mg PRN Q10MIN PRN IV Moderate Pain; Start 11/17/16 at 13 :45; Stop 11/18/16 at 13:44; Status DC Lactated Ringer's (Iv Lactated Ringers) 1,000 ml @ 50 mls/hr Q20H IV Last administered on 11/17/16t 14:15; Start 11/17/16 at 13:34; Stop 11/18/16 at 01:33; Status DC Ondansetron HCl (Zofran) 4 mg PRN Q6HRS PRN IV Nausea, 1st Choice; Start at 13:50; Stop 11/18/16 at 13:44; Status DC Fentanyl Citrate (Fentanyl 2ml Vial) 100 mcg STK-MED ONCE .ROUTE ; Start at 14:36; Stop 11/17/16 at 14:37; Status DC Dexamethasone Sodium Phosphate (Decadron) 20 mg STK-MED ONCE .ROUTE ; Start 11/17 at 14:36; Stop 11/17/16 at 14:37; Status DC Ondansetron HCl 4 mg 4 mg STK-MED ONCE .ROUTE ; Start 11/17/16 at 14:36; Stop 11/17/16 at 14:37; Status DC Propofol (Diprivan) 20 ml @ As Directed STK-MED ONCE IV ; Start 11/17/16 at 14:36 ; Stop 11/17/16 at 14:37; Status DC Lidocaine HCl (Lidocaine HCl 2% Abboject) 100 mg STK-MED ONCE .ROUTE ; Start 11/17/16 at 14:36; Stop 11/17/16 at 14:37; Status DC Phenylephrine HCl 1 mg STK-MED ONCE IV ; Start 11/17/16 at 15:00; Stop 11/17/16 at 15:01; Status DC Sevoflurane (Ultane) 30 ml STK-MED ONCE IH ; Start 11/17/16 at 15:30; Stop at 15:31; Status DC Ondansetron HCl (Zofran) 4 mg PRN Q6HRS PRN IV NAUSEA/VOMITING; Start 11/19/16 at 07:00; Stop 11/20/16 at 06:59; Status DC Fentanyl Citrate (Fentanyl 2ml Vial) 25 mcg PRN Q5MIN PRN IV MILD PAIN; Start 11/19/16 at 07:00; Stop 11/20/16 at 06:59; Status DC Fentanyl Citrate (Fentanyl 2ml Vial) 50 mcg PRN Q5MIN PRN IV MODERATE PAIN Last administered on 11/19/16 19:39; Start 11/19/16 at 07:00; Stop 11/20/16 at 06: 59; Status DC Morphine Sulfate 1 mg 1 mg PRN Q10MIN PRN IV SEVERE PAIN; Start 11/19/16 at 06: 45; Stop 11/20/16 at 06:44; Status DC Lactated Ringer's (Iv Lactated Ringers) 1,000 ml @ 0 mls/hr Q0M IV Last administered on 11/19/16 12:56; Start 11/19/16 at 07:00; Stop 11/19/16 at 13:00; Status DC Lidocaine HCl 2 ml PRN 1X PRN ID PRIOR TO IV START; Start 11/19/16 at 07:00; Stop 11/20/16 at 06:59; Status DC Hydromorphone HCl (Dilaudid) 0.5 mg PRN Q10MIN PRN IV SEV PAIN, Second choice; Start 11/19/16 at 06:45; Stop 11/20/16 at 06:44; Status DC Prochlorperazine Edisylate (Compazine) 5 mg PACU PRN PRN IV NAUSEA, MRX1; Start 11/19/16 at 06:45; Stop 11/20/16 at 06:44; Status DC Benztropine Mesylate (Cogentin) 2 mg STK-MED ONCE .ROUTE ; Start 11/16/16 at 09: 00; Stop 11/19/16 at 11:52; Status DC Benztropine Mesylate (Cogentin) 2 mg STK-MED ONCE .ROUTE ; Start 11/16/16 at 09: 00; Stop 11/19/16 at 11:52; Status DC Benztropine Mesylate (Cogentin) 2 mg STK-MED ONCE .ROUTE ; Start 11/17/16 at 09: 00; Stop 11/19/16 at 11:52; Status DC Benztropine Mesylate (Cogentin) 2 mg STK-MED ONCE .ROUTE ; Start 11/18/16 at 09: 00; Stop 11/19/16 at 11:53; Status DC Benztropine Mesylate 2 mg 2 mg STK-MED ONCE .ROUTE ; Start 11/19/16 at 01:00; Stop 11/19/16 at 11:53; Status DC Cefazolin Sodium/ Dextrose 50 ml @ 100 mls/hr 1X PREOP IV Last administered on 11/19/16 14:57; Start 11/19/16 at 13:00; Stop 11/20/16 at 18:00 Cefazolin Sodium/ Dextrose 50 ml @ As Directed STK-MED ONCE IV ; Start 11/19/16 at 13:03; Stop 11/19/16 at 13:04; Status DC Amino Acids/ Glycerin/ Electrolytes (Procalamine) 1,000 ml @ 80 mls/hr [id number] IV Last administered on 11/20/16 02:41; Start 11/19/16 at 14:00 Rocuronium Chelan (Zemuron) 50 mg STK-MED ONCE .ROUTE ; Start 11/19/16 at 13:35 ; Stop 11/19/16 at 13:36; Status DC Desflurane 60 ml 60 ml STK-MED ONCE IH ; Start 11/19/16 at 13:35; Stop 11/19/16 at 13:36; Status DC Propofol (Diprivan) 20 ml @ As Directed STK-MED ONCE IV ; Start 11/19/16 at 13:35 ; Stop 11/19/16 at 13:36; Status DC Dexamethasone Sodium Phosphate (Decadron) 20 mg STK-MED ONCE .ROUTE ; Start 11/19 at 13:35; Stop 11/19/16 at 13:36; Status DC Ondansetron HCl (Zofran) 4 mg STK-MED ONCE .ROUTE ; Start 11/19/16 at 13:35; Stop 11/19/16 at 13:36; Status DC Lidocaine HCl (Lidocaine HCl 2% Abboject) 100 mg STK-MED ONCE .ROUTE ; Start 11/19/16 at 13:35; Stop 11/19/16 at 13:36; Status DC Phenylephrine HCl 1 mg STK-MED ONCE IV ; Start 11/19/16 at 13:37; Stop 11/19/16 at 13:38; Status DC Fentanyl Citrate (Fentanyl 2ml Vial) 100 mcg STK-MED ONCE .ROUTE ; Start at 13:59; Stop 11/19/16 at 14:00; Status DC Rocuronium Chelan (Zemuron) 50 mg STK-MED ONCE .ROUTE ; Start 11/19/16 at 14:26 ; Stop 11/19/16 at 14:27; Status DC Ondansetron HCl (Zofran) 4 mg STK-MED ONCE .ROUTE ; Start 11/19/16 at 14:44; Stop 11/19/16 at 14:45; Status DC Glycopyrrolate (Robinul) 1 mg STK-MED ONCE .ROUTE ; Start 11/19/16 at 14:44; Stop 11/19/16 at 14:45; Status DC Neostigmine Methylsulfate 5 mg STK-MED ONCE .ROUTE ; Start 11/19/16 at 14:44; Stop 11/19/16 at 14:45; Status DC Desflurane (Suprane) 60 ml STK-MED ONCE IH ; Start 11/19/16 at 14:58; Stop at 14:59; Status DC Ephedrine Sulfate 50 mg STK-MED ONCE IV ; Start 11/19/16 at 15:05; Stop 11/19/16 at 15:06; Status DC Methylene Blue (Methylene Blue) 1 ml STK-MED ONCE .ROUTE ; Start 11/19/16 at 15: 11; Stop 11/19/16 at 15:12; Status DC Phenylephrine HCl 1 mg STK-MED ONCE IV ; Start 11/19/16 at 15:25; Stop 11/19/16 at 15:26; Status DC Vasopressin (Vasostrict) 20 unit STK-MED ONCE .ROUTE ; Start 11/19/16 at 15:54; Stop 11/19/16 at 15:55; Status DC Epinephrine HCl 1 mg 1 mg STK-MED ONCE .ROUTE ; Start 11/19/16 at 15:56; Stop 11/19/16 at 15:57; Status DC Sodium Chloride 1,000 ml @ 125 mls/hr 1X ONCE IV Last administered on 21:42; Start 11/19/16 at 19:30; Stop 11/20/16 at 03:29; Status DC Propofol 100 ml @ 0 mls/hr CONT PRN IV SEE I/O RECORD Last administered on 08:38; Start 11/19/16 at 20:00 Norepinephrine Bitartrate 8 mg/ Sodium Chloride 258 ml @ 0 mls/hr CONT PRN IV SEE I/O RECORD Last administered on 11/19/16 21:44; Start 11/19/16 at 21:30 Sodium Chloride (Iv Sodium Chloride 0.9% 1000ml Bag) 1,000 ml @ 125 mls/hr Q8H IV Last administered on 11/20/16 10:15; Start 11/20/16 at 10:00 Famotidine 20 mg 20 mg QHS IVP ; Start 11/20/16 at 21:00 Piperacillin Sod/ Tazobactam Sod/ Sodium Chloride (Zosyn/Iv Sodium Chloride 0.9 % 50ml) 50 ml @ 100 mls/hr Q6HRS IV ; Start 11/20/16 at 11:00 Active Scripts Active Reported Famotidine 20 Mg Tablet 10 Mg PO DAILY Vitamin D3 (Cholecalciferol (Vitamin D3)) 1,000 Unit Tablet 1,000 Unit PO DAILY Furosemide 20 Mg Tablet 20 Mg PO DAILY Sertraline Hcl 25 Mg Tablet 25 Mg PO DAILY Atenolol 50 Mg Tablet 50 Mg PO DAILY Olanzapine 5 Mg Tablet 5 Mg PO DAILY Benztropine Mesylate 2 Mg Tablet 2 Mg PO BID Carbidopa-Levodopa 10-100 Tab (Carbidopa/Levodopa) 1 Each Tablet 1 Each PO TID Vitals/I & O Vital Sign - Last 24 Hours 11/19/16 11/19/16 11/19/16 11/19/16 12:46 17:45 18:00 18:10 Temp 98.6 97.3 98.6 97.3 Pulse 59 66 68 Resp 21 12 B/P 142/68 98/51 79/56 Pulse Ox 94 100 100 100 O2 Delivery Nasal Cannula Ventilator Ventilator Ventilator O2 Flow Rate 2 11/19/16 11/19/16 11/19/16 11/19/16 18:30 19:35 19:39 20:00 Pulse 76 Resp 12 14 B/P 111/61 Pulse Ox 98 99 O2 Delivery Ventilator Ventilator Ventilator Mechanical Ventilator 11/19/16 11/19/16 11/19/16 11/19/16 20:00 20:09 21:00 21:40 Temp 99.0 99.0 Pulse 80 68 Resp 14 14 14 B/P 107/66 59/47 Pulse Ox 100 100 100 O2 Delivery Ventilator Ventilator Ventilator Ventilator 11/19/16 11/19/16 11/20/16 11/20/16 22:00 23:00 00:00 00:00 Temp 98.6 98.6 Pulse 61 66 77 Resp 14 14 14 B/P 107/59 117/90 111/66 Pulse Ox 100 100 100 O2 Delivery Ventilator Ventilator Ventilator Mechanical Ventilator 11/20/16 11/20/16 11/20/16 11/20/16 00:32 01:00 02:00 02:45 Pulse 72 73 Resp 14 14 B/P 110/67 99/65 Pulse Ox 99 100 100 100 O2 Delivery Ventilator Ventilator Ventilator Ventilator 11/20/16 11/20/16 11/20/16 11/20/16 03:00 04:00 04:00 05:00 Temp 98.2 98.2 Pulse 68 68 68 Resp 14 14 14 B/P 118/65 141/100 107/64 Pulse Ox 100 100 100 O2 Delivery Ventilator Mechanical Ventilator Ventilator Ventilator 11/20/16 11/20/16 11/20/16 11/20/16 05:20 06:00 07:00 07:48 Pulse 68 72 Resp 14 20 B/P 111/56 82/65 Pulse Ox 100 100 100 98 O2 Delivery Ventilator Ventilator Ventilator Ventilator 11/20/16 11/20/16 11/20/16 11/20/16 08:00 08:00 09:00 09:30 Temp 100.1 100.1 Pulse 102 68 68 Resp 18 14 14 B/P 99/67 133/64 106/66 Pulse Ox 100 100 100 O2 Delivery Ventilator Mechanical Ventilator Ventilator Ventilator 11/20/16 10:00 Pulse 69 Resp 14 B/P 105/56 Pulse Ox 100 O2 Delivery Ventilator Intake and Output 11/19/16 11/19/16 11/20/16 15:00 23:00 07:00 Intake Total 2730 ml Output Total 190 ml 180 ml Balance -190 ml 2550 ml FARZANEH SALES MD Nov 20, 2016 11:01
[2016-11-20] MEDS: PIPERACILLIN/TAZOBACTAM 3.375 GM in IV NORMAL SALINE 50ML 50 ML IV SCH ×2 (11:26→18:06)
--- NOTE | 2016-11-20 12:16 | CONS ---
DATE OF CONSULTATION: 11/20/2016 REFERRING PHYSICIAN: Dr. Tolliver. REASON FOR CONSULTATION: Sepsis and leukocytosis. HISTORY OF PRESENT ILLNESS: This patient is a 70-year-old female with a history of Parkinson disease who presented from home with abdominal pain, postmenopausal vaginal bleeding and anemia. A pelvic ultrasound showed an enlarged and heterogenous uterus suggestive of diffuse fibroid involvement. She had a hysteroscopy followed by a total abdominal hysterectomy and bilateral salpingo-oophorectomy on 11/19/2016. She has a history of postmenopausal bleeding occurring about a year ago. An endometrial biopsy at that time was negative for cancer. She is currently intubated and sedated. Additional history of present illness, past medical history, and review of systems are unobtainable. She has a low-grade fever with an elevated white blood cell count. She is hypotensive, on Levophed, which is currently being weaned down. No vomiting or diarrhea reported per RN. Status post blood transfusion. PAST MEDICAL HISTORY: E. coli pansensitive urinary tract infection, Parkinson disease with tardive dyskinesia, coronary artery disease, gastroesophageal reflux disease, hypertension, schizophrenia, tinnitus and hiatal hernia. PAST HISTORY: Previous PEG tube placement, excision of left lower extremity mass in May 2016. SOCIAL HISTORY: The patient lives at home in the care of her brothers. She is bed bound requiring assistance with ADLs. FAMILY HISTORY: Noncontributory. ALLERGIES: No known drug allergies. MEDICATIONS: Ceftriaxone. She received a dose of cefazolin and preop. Levophed. Other medications are available and have been reviewed on the OCT. REVIEW OF SYSTEMS: Unobtainable as the patient is intubated and sedated. PHYSICAL EXAMINATION: VITAL SIGNS: Temperature 100.1, blood pressure 133/64, heart rate 68, respiratory rate 14, pulse oximetry is 100% on FIO2 of 40% via ventilator. Weight is 133.25 pounds. HEENT: Right pupil is reactive. Left pupil dilated and cloudy. OGT and ETT in place. LUNGS: Clear to auscultation anteriorly. HEART: Normal S1 and S2. ABDOMEN: Obese, bowel sounds are quiet, soft. No grimace or guarding to palpation. Abdominal dressing is dry. CRISTOFER with sanguineous drainage. GENITOURINARY: She has a Casas. EXTREMITIES: No gross edema or cyanosis. SKIN: Without rash. Warm to touch. NEUROLOGIC: Lightly sedated. Unresponsive to verbal. Rhythmic movements noted. LABORATORY DATA: Today, WBC 23.1 from 12.6 on admission, hemoglobin 12.7, platelet count 245,000, segs 77%, bands 9%, monocytes 6%. Sodium 146, potassium 3.9, creatinine 1.2, BUN 21, bicarbonate 19, total bilirubin 0.5, AST 21, ALT 8, albumin 2.1, glucose 193. Urinalysis was positive for wbc, leukocyte esterase and bacteria. Urine culture grew more than 3 organisms, nonpredominant. Chest x-ray showed linear atelectasis in the left lower lung zone, which is stable. No new lung infiltrate, pulmonary edema or pleural effusion seen. Blood cultures pending. IMPRESSION: 1. Fever. 2. Leukocytosis. 3. Hypotension. 4. Status post total abdominal hysterectomy and bilateral salpingo-oophorectomy on November 19. 5. Postop respiratory failure. 6. Renal insufficiency. 7. Parkinson disease with tardive dyskinesia. PLAN: Change the ceftriaxone to Zosyn for broader coverage. Monitor laboratory values, temperature and await culture results. Supportive care. Thank you, Dr. Tolliver, for asking us to participate in this patient's care. Should you have further questions or concerns, please call. CHRISTIN LOJA MD DR: ANGEL/leigha JOB#: [id number] / [id number]
[2016-11-20 14:12] LABS: HCO3 ABG 19 mmol/L (21-28); PCO2 ABG 30 mmHg (35-46); PH ABG 7.42 (7.35-7.45); PO2 ABG 152 mmHg (65-108); SAT O2 ABG 98 % (92-99)
[2016-11-20 14:13] LABS: FIO2 ABG 40
[2016-11-20] MEDS ORDERED: IV 1/2 NORMAL SALINE 1,000 ML IV ONE (14:45)
[2016-11-20] MEDS ORDERED: SODIUM BICARB ADULT 8.4% 50 MEQ/50 ML DISP.SYRIN. IV ONE (14:45)
--- NOTE | 2016-11-20 14:47 | PDOC2 ---
CONSULT Date of Consult Date of Consult DATE: 11/20/16 TIME: 14:45 Past Medical History Cardiovascular: No pertinent hx Pulmonary: No pertinent hx CENTRAL NERVOUS SYSTEM: Other (TD) Hepatobiliary: No pertinent hx Psych: No pertinent hx Musculoskeletal: low back pain Rheumatologic: No pertinent hx Infectious disease: No pertinent hx ENT: No pertinent hx Renal/: No pertinent hx Past Surgical History Past Surgical History: No pertinent history Family History Family History: No Significant Social History No ALCOHOL: none Drugs: None Lives: with Family Domestic Violence: Neg Current Problem List Problem List Problems Medical Problems: (1) Vaginal bleeding Status: Acute Current Medications Current Medications Current Medications Sodium Chloride (Iv Sodium Chloride 0.9% 500ml Bag) 500 ml @ 500 mls/hr 1X ONCE IV Last administered on 11/15/16 21:30; Start 11/15/16 at 21:30; Stop at 22:29; Status DC Ondansetron HCl (Zofran) 4 mg PRN Q8HRS PRN IV NAUSEA/VOMITING; Start 11/15/16 at 23:45; Stop 11/16/16 at 23:44; Status DC Morphine Sulfate 2 mg PRN Q2HR PRN IV SEVERE PAIN; Start 11/15/16 at 23:45; Stop 11/16/16 at 23:44; Status DC Acetaminophen 650 mg 650 mg PRN Q4HRS PRN PO FEVER; Start 11/15/16 at 23:45; Stop 11/16/16 at 23:44; Status DC Ceftriaxone Sodium (Rocephin 1gm Ivpb For Omni) 50 ml @ 100 mls/hr 1X ONCE IV Last administered on 11/16/16 03:08; Start 11/16/16 at 01:00; Stop 11/16/16 at 01:29; Status DC Atenolol (Tenormin) 50 mg DAILY PO Last administered on 11/19/16 09:30; Start 11/16/16 at 09:30; Stop 11/20/16 at 08:36; Status DC Carbidopa/Levodopa (Sinemet 10/100) 1 tab TID PO Last administered on 11/20/16 10:15; Start 11/16/16 at 09:30 Vitamin D (Vitamin D3) 1,000 unit DAILY PO Last administered on 11/20/16 08:38 ; Start 11/16/16 at 09:30 Famotidine (Pepcid) 10 mg DAILY PO Last administered on 11/18/16 08:21; Start 11/16/16 at 09:30; Stop 11/20/16 at 07:28; Status DC Furosemide (Lasix) 20 mg DAILY PO Last administered on 11/18/16 08:21; Start at 09:30 Olanzapine (Zyprexa) 5 mg DAILY PO Last administered on 11/20/16 08:37; Start 11/16/16 at 09:30 Sertraline HCl (Zoloft) 25 mg DAILY PO Last administered on 11/20/16 08:37; Start 11/16/16 at 09:30 Benztropine Mesylate 2 mg 2 mg BID PO Last administered on 11/20/16 08:37; Start 11/16/16 at 09:30 Ceftriaxone Sodium 1 gm/ Sodium Chloride 50 ml @ 100 mls/hr Q24H IV Last administered on 11/19/16 21:43; Start 11/16/16 at 21:00; Stop 11/20/16 at 10:05; Status DC Sodium Chloride (Iv Sodium Chloride 0.9% 1000ml Bag) 1,000 ml @ 100 mls/hr 1X ONCE IV Last administered on 11/17/16 12:52; Start 11/17/16 at 13:00; Stop at 22:59; Status DC Ondansetron HCl (Zofran) 4 mg PRN Q6HRS PRN IV Nausea, 1st Choice; Start at 13:45; Stop 11/17/16 at 13:50; Status DC Fentanyl Citrate (Fentanyl 2ml Vial) 25 mcg PRN Q5MIN PRN IV Acute Pain; Start 11/17/16 at 13:45; Stop 11/18/16 at 13:44; Status DC Fentanyl Citrate (Fentanyl 2ml Vial) 50 mcg PRN Q5MIN PRN IV Acute Pain; Start 11/17/16 at 13:45; Stop 11/18/16 at 13:44; Status DC Morphine Sulfate 1 mg PRN Q10MIN PRN IV Mild Pain; Start 11/17/16 at 13:45; Stop 11/18/16 at 13:44; Status DC Morphine Sulfate 2 mg 2 mg PRN Q10MIN PRN IV Moderate Pain; Start 11/17/16 at 13 :45; Stop 11/18/16 at 13:44; Status DC Lactated Ringer's (Iv Lactated Ringers) 1,000 ml @ 50 mls/hr Q20H IV Last administered on 11/17/16t 14:15; Start 11/17/16 at 13:34; Stop 11/18/16 at 01:33; Status DC Ondansetron HCl (Zofran) 4 mg PRN Q6HRS PRN IV Nausea, 1st Choice; Start at 13:50; Stop 11/18/16 at 13:44; Status DC Fentanyl Citrate (Fentanyl 2ml Vial) 100 mcg STK-MED ONCE .ROUTE ; Start at 14:36; Stop 11/17/16 at 14:37; Status DC Dexamethasone Sodium Phosphate (Decadron) 20 mg STK-MED ONCE .ROUTE ; Start 11/17 at 14:36; Stop 11/17/16 at 14:37; Status DC Ondansetron HCl 4 mg 4 mg STK-MED ONCE .ROUTE ; Start 11/17/16 at 14:36; Stop 11/17/16 at 14:37; Status DC Propofol (Diprivan) 20 ml @ As Directed STK-MED ONCE IV ; Start 11/17/16 at 14:36 ; Stop 11/17/16 at 14:37; Status DC Lidocaine HCl (Lidocaine HCl 2% Abboject) 100 mg STK-MED ONCE .ROUTE ; Start 11/17/16 at 14:36; Stop 11/17/16 at 14:37; Status DC Phenylephrine HCl 1 mg STK-MED ONCE IV ; Start 11/17/16 at 15:00; Stop 11/17/16 at 15:01; Status DC Sevoflurane (Ultane) 30 ml STK-MED ONCE IH ; Start 11/17/16 at 15:30; Stop at 15:31; Status DC Ondansetron HCl (Zofran) 4 mg PRN Q6HRS PRN IV NAUSEA/VOMITING; Start 11/19/16 at 07:00; Stop 11/20/16 at 06:59; Status DC Fentanyl Citrate (Fentanyl 2ml Vial) 25 mcg PRN Q5MIN PRN IV MILD PAIN; Start 11/19/16 at 07:00; Stop 11/20/16 at 06:59; Status DC Fentanyl Citrate (Fentanyl 2ml Vial) 50 mcg PRN Q5MIN PRN IV MODERATE PAIN Last administered on 11/19/16 19:39; Start 11/19/16 at 07:00; Stop 11/20/16 at 06: 59; Status DC Morphine Sulfate 1 mg 1 mg PRN Q10MIN PRN IV SEVERE PAIN; Start 11/19/16 at 06: 45; Stop 11/20/16 at 06:44; Status DC Lactated Ringer's (Iv Lactated Ringers) 1,000 ml @ 0 mls/hr Q0M IV Last administered on 11/19/16 12:56; Start 11/19/16 at 07:00; Stop 11/19/16 at 13:00; Status DC Lidocaine HCl 2 ml PRN 1X PRN ID PRIOR TO IV START; Start 11/19/16 at 07:00; Stop 11/20/16 at 06:59; Status DC Hydromorphone HCl (Dilaudid) 0.5 mg PRN Q10MIN PRN IV SEV PAIN, Second choice; Start 11/19/16 at 06:45; Stop 11/20/16 at 06:44; Status DC Prochlorperazine Edisylate (Compazine) 5 mg PACU PRN PRN IV NAUSEA, MRX1; Start 11/19/16 at 06:45; Stop 11/20/16 at 06:44; Status DC Benztropine Mesylate (Cogentin) 2 mg STK-MED ONCE .ROUTE ; Start 11/16/16 at 09: 00; Stop 11/19/16 at 11:52; Status DC Benztropine Mesylate (Cogentin) 2 mg STK-MED ONCE .ROUTE ; Start 11/16/16 at 09: 00; Stop 11/19/16 at 11:52; Status DC Benztropine Mesylate (Cogentin) 2 mg STK-MED ONCE .ROUTE ; Start 11/17/16 at 09: 00; Stop 11/19/16 at 11:52; Status DC Benztropine Mesylate (Cogentin) 2 mg STK-MED ONCE .ROUTE ; Start 11/18/16 at 09: 00; Stop 11/19/16 at 11:53; Status DC Benztropine Mesylate 2 mg 2 mg STK-MED ONCE .ROUTE ; Start 11/19/16 at 01:00; Stop 11/19/16 at 11:53; Status DC Cefazolin Sodium/ Dextrose 50 ml @ 100 mls/hr 1X PREOP IV Last administered on 11/19/16 14:57; Start 11/19/16 at 13:00; Stop 11/20/16 at 18:00 Cefazolin Sodium/ Dextrose 50 ml @ As Directed STK-MED ONCE IV ; Start 11/19/16 at 13:03; Stop 11/19/16 at 13:04; Status DC Amino Acids/ Glycerin/ Electrolytes (Procalamine) 1,000 ml @ 80 mls/hr [id number] IV Last administered on 11/20/16 02:41; Start 11/19/16 at 14:00 Rocuronium [place] (Zemuron) 50 mg STK-MED ONCE .ROUTE ; Start 11/19/16 at 13:35 ; Stop 11/19/16 at 13:36; Status DC Desflurane 60 ml 60 ml STK-MED ONCE IH ; Start 11/19/16 at 13:35; Stop 11/19/16 at 13:36; Status DC Propofol (Diprivan) 20 ml @ As Directed STK-MED ONCE IV ; Start 11/19/16 at 13:35 ; Stop 11/19/16 at 13:36; Status DC Dexamethasone Sodium Phosphate (Decadron) 20 mg STK-MED ONCE .ROUTE ; Start 11/19 at 13:35; Stop 11/19/16 at 13:36; Status DC Ondansetron HCl (Zofran) 4 mg STK-MED ONCE .ROUTE ; Start 11/19/16 at 13:35; Stop 11/19/16 at 13:36; Status DC Lidocaine HCl (Lidocaine HCl 2% Abboject) 100 mg STK-MED ONCE .ROUTE ; Start 11/19/16 at 13:35; Stop 11/19/16 at 13:36; Status DC Phenylephrine HCl 1 mg STK-MED ONCE IV ; Start 11/19/16 at 13:37; Stop 11/19/16 at 13:38; Status DC Fentanyl Citrate (Fentanyl 2ml Vial) 100 mcg STK-MED ONCE .ROUTE ; Start at 13:59; Stop 11/19/16 at 14:00; Status DC Rocuronium [place] (Zemuron) 50 mg STK-MED ONCE .ROUTE ; Start 11/19/16 at 14:26 ; Stop 11/19/16 at 14:27; Status DC Ondansetron HCl (Zofran) 4 mg STK-MED ONCE .ROUTE ; Start 11/19/16 at 14:44; Stop 11/19/16 at 14:45; Status DC Glycopyrrolate (Robinul) 1 mg STK-MED ONCE .ROUTE ; Start 11/19/16 at 14:44; Stop 11/19/16 at 14:45; Status DC Neostigmine Methylsulfate 5 mg STK-MED ONCE .ROUTE ; Start 11/19/16 at 14:44; Stop 11/19/16 at 14:45; Status DC Desflurane (Suprane) 60 ml STK-MED ONCE IH ; Start 11/19/16 at 14:58; Stop at 14:59; Status DC Ephedrine Sulfate 50 mg STK-MED ONCE IV ; Start 11/19/16 at 15:05; Stop 11/19/16 at 15:06; Status DC Methylene Blue (Methylene Blue) 1 ml STK-MED ONCE .ROUTE ; Start 11/19/16 at 15: 11; Stop 11/19/16 at 15:12; Status DC Phenylephrine HCl 1 mg STK-MED ONCE IV ; Start 11/19/16 at 15:25; Stop 11/19/16 at 15:26; Status DC Vasopressin (Vasostrict) 20 unit STK-MED ONCE .ROUTE ; Start 11/19/16 at 15:54; Stop 11/19/16 at 15:55; Status DC Epinephrine HCl 1 mg 1 mg STK-MED ONCE .ROUTE ; Start 11/19/16 at 15:56; Stop 11/19/16 at 15:57; Status DC Sodium Chloride 1,000 ml @ 125 mls/hr 1X ONCE IV Last administered on t 21:42; Start 11/19/16 at 19:30; Stop 11/20/16 at 03:29; Status DC Propofol 100 ml @ 0 mls/hr CONT PRN IV SEE I/O RECORD Last administered on 08:38; Start 11/19/16 at 20:00 Norepinephrine Bitartrate 8 mg/ Sodium Chloride 258 ml @ 0 mls/hr CONT PRN IV SEE I/O RECORD Last administered on 11/19/16 21:44; Start 11/19/16 at 21:30 Sodium Chloride (Iv Sodium Chloride 0.9% 1000ml Bag) 1,000 ml @ 125 mls/hr Q8H IV Last administered on 11/20/16 10:15; Start 11/20/16 at 10:00 Famotidine 20 mg 20 mg QHS IVP ; Start 11/20/16 at 21:00 Piperacillin Sod/ Tazobactam Sod/ Sodium Chloride (Zosyn/Iv Sodium Chloride 0.9 % 50ml) 50 ml @ 100 mls/hr Q6HRS IV Last administered on 11/20/16 11:26; Start 11/20/16 at 11:00 Active Scripts Active Reported Famotidine 20 Mg Tablet 10 Mg PO DAILY Vitamin D3 (Cholecalciferol (Vitamin D3)) 1,000 Unit Tablet 1,000 Unit PO DAILY Furosemide 20 Mg Tablet 20 Mg PO DAILY Sertraline Hcl 25 Mg Tablet 25 Mg PO DAILY Atenolol 50 Mg Tablet 50 Mg PO DAILY Olanzapine 5 Mg Tablet 5 Mg PO DAILY Benztropine Mesylate 2 Mg Tablet 2 Mg PO BID Carbidopa-Levodopa 10-100 Tab (Carbidopa/Levodopa) 1 Each Tablet 1 Each PO TID Allergies Allergies: Coded Allergies: No Known Drug Allergies (Unverified , 11/19/16) Vitals VITALS Vital Signs Date Time Temp Pulse Resp B/P Pulse Ox O2 Delivery O2 Flow Rate FiO2 11/20/16 14:05 Ventilator 11/20/16 12:00 99.3 100 17 104/53 100 99.3 11/19/16 12:46 2 Labs Labs Laboratory Tests Test 11/19/16 04:15 11/19/16 18:40 11/19/16 18:47 11/20/16 03:30 White Blood Count 9.9x10^3/uL (4.0-11.0) 23.4x10^3/uL (4.0-11.0) Red Blood Count 3.71x10^6/uL (3.50-5.40) 3.90x10^6/uL (3.50-5.40) Hemoglobin 10.9g/dL (12.0-15.5) 11.8g/dL (12.0-15.5) Hematocrit 33.3% (36.0-47.0) 35.4% (36.0-47.0) Mean Corpuscular Volume 90fL (79-100) 91fL (79-100) Mean Corpuscular Hemoglobin 29pg (25-35) 30pg (25-35) Mean Corpuscular Hemoglobin Concent 33g/dL (31-37) 33g/dL (31-37) Red Cell Distribution Width 14.0% (11.5-14.5) 14.2% (11.5-14.5) Platelet Count 202x10^3/uL (140-400) 226x10^3/uL (140-400) Neutrophils (%) (Auto) 67% (31-73) Lymphocytes (%) (Auto) 25% (24-48) Monocytes (%) (Auto) 7% (0-9) Eosinophils (%) (Auto) 1% (0-3) Basophils (%) (Auto) 1% (0-3) Neutrophils # (Auto) 6.6x10^3uL (1.8-7.7) Lymphocytes # (Auto) 2.5x10^3/uL (1.0-4.8) Monocytes # (Auto) 0.6x10^3/uL (0.0-1.1) Eosinophils # (Auto) 0.1x10^3/uL (0.0-0.7) Basophils # (Auto) 0.1x10^3/uL (0.0-0.2) Sodium Level 148mmol/L (136-145) 146mmol/L (136-145) Potassium Level 3.7mmol/L (3.5-5.1) 3.9mmol/L (3.5-5.1) Chloride Level 113mmol/L (98-107) 113mmol/L (98-107) Carbon Dioxide Level 29mmol/L (21-32) 19mmol/L (21-32) Anion Gap 6 (6-14) 14 (6-14) Blood Urea Nitrogen 12mg/dL (7-20) 21mg/dL (7-20) Creatinine 0.8mg/dL (0.6-1.0) 1.2mg/dL (0.6-1.0) Estimated GFR (Cockcroft-Gault) 70.5 44.2 BUN/Creatinine Ratio 15 (6-20) 18 (6-20) Glucose Level 98mg/dL (70-99) 193mg/dL (70-99) Calcium Level 8.9mg/dL (8.5-10.1) 8.0mg/dL (8.5-10.1) Total Bilirubin 0.3mg/dL (0.2-1.0) 0.5mg/dL (0.2-1.0) Aspartate Amino Transf (AST/SGOT) 21U/L (15-37) 21U/L (15-37) Alanine Aminotransferase (ALT/SGPT) 7U/L (14-59) 8U/L (14-59) Alkaline Phosphatase 48U/L (46-116) 37U/L (46-116) Total Protein 6.2g/dL (6.4-8.2) 5.2g/dL (6.4-8.2) Albumin 2.5g/dL (3.4-5.0) 2.1g/dL (3.4-5.0) Albumin/Globulin Ratio 0.7 (1.0-1.7) 0.7 (1.0-1.7) O2 Saturation 99% (92-99) Arterial Blood pH 7.39 (7.35-7.45) Arterial Blood pCO2 at Patient Temp 29mmHg (35-46) Arterial Blood pO2 at Patient Temp 428mmHg (65-108) Arterial Blood HCO3 18mmol/L (21-28) Arterial Blood Base Excess -6mmol/L (-3-3) FiO2 90 Test 11/20/16 04:44 11/20/16 07:45 11/20/16 13:35 White Blood Count 23.1x10^3/uL (4.0-11.0) Red Blood Count 4.28x10^6/uL (3.50-5.40) Hemoglobin 12.7g/dL (12.0-15.5) Hematocrit 38.6% (36.0-47.0) Mean Corpuscular Volume 90fL (79-100) Mean Corpuscular Hemoglobin 30pg (25-35) Mean Corpuscular Hemoglobin Concent 33g/dL (31-37) Red Cell Distribution Width 14.5% (11.5-14.5) Platelet Count 245x10^3/uL (140-400) Neutrophils (%) (Auto) 88% (31-73) Lymphocytes (%) (Auto) 5% (24-48) Monocytes (%) (Auto) 6% (0-9) Eosinophils (%) (Auto) 0% (0-3) Basophils (%) (Auto) 0% (0-3) Neutrophils # (Auto) 20.3x10^3uL (1.8-7.7) Lymphocytes # (Auto) 1.3x10^3/uL (1.0-4.8) Monocytes # (Auto) 1.4x10^3/uL (0.0-1.1) Eosinophils # (Auto) 0.0x10^3/uL (0.0-0.7) Basophils # (Auto) 0.1x10^3/uL (0.0-0.2) Segmented Neutrophils % 77% (35-66) Band Neutrophils % 9% (0-9) Lymphocytes % 7% (24-48) Monocytes % 6% (0-10) Eosinophils % 1% (0-5) Platelet Estimate Adequate (ADEQUATE) O2 Saturation 99% (92-99) 98% (92-99) Arterial Blood pH 7.44 (7.35-7.45) 7.42 (7.35-7.45) Arterial Blood pCO2 at Patient Temp 28mmHg (35-46) 30mmHg (35-46) Arterial Blood pO2 at Patient Temp 161mmHg (65-108) 152mmHg (65-108) Arterial Blood HCO3 19mmol/L (21-28) 19mmol/L (21-28) Arterial Blood Base Excess -4mmol/L (-3-3) -4mmol/L (-3-3) FiO2 40 40 Laboratory Tests Test 11/19/16 18:40 11/19/16 18:47 11/20/16 03:30 11/20/16 04:44 White Blood Count 23.4x10^3/uL (4.0-11.0) 23.1x10^3/uL (4.0-11.0) Red Blood Count 3.90x10^6/uL (3.50-5.40) 4.28x10^6/uL (3.50-5.40) Hemoglobin 11.8g/dL (12.0-15.5) 12.7g/dL (12.0-15.5) Hematocrit 35.4% (36.0-47.0) 38.6% (36.0-47.0) Mean Corpuscular Volume 91fL (79-100) 90fL (79-100) Mean Corpuscular Hemoglobin 30pg (25-35) 30pg (25-35) Mean Corpuscular Hemoglobin Concent 33g/dL (31-37) 33g/dL (31-37) Red Cell Distribution Width 14.2% (11.5-14.5) 14.5% (11.5-14.5) Platelet Count 226x10^3/uL (140-400) 245x10^3/uL (140-400) O2 Saturation 99% (92-99) Arterial Blood pH 7.39 (7.35-7.45) Arterial Blood pCO2 at Patient Temp 29mmHg (35-46) Arterial Blood pO2 at Patient Temp 428mmHg (65-108) Arterial Blood HCO3 18mmol/L (21-28) Arterial Blood Base Excess -6mmol/L (-3-3) FiO2 90 Sodium Level 146mmol/L (136-145) Potassium Level 3.9mmol/L (3.5-5.1) Chloride Level 113mmol/L (98-107) Carbon Dioxide Level 19mmol/L (21-32) Anion Gap 14 (6-14) Blood Urea Nitrogen 21mg/dL (7-20) Creatinine 1.2mg/dL (0.6-1.0) Estimated GFR (Cockcroft-Gault) 44.2 BUN/Creatinine Ratio 18 (6-20) Glucose Level 193mg/dL (70-99) Calcium Level 8.0mg/dL (8.5-10.1) Total Bilirubin 0.5mg/dL (0.2-1.0) Aspartate Amino Transf (AST/SGOT) 21U/L (15-37) Alanine Aminotransferase (ALT/SGPT) 8U/L (14-59) Alkaline Phosphatase 37U/L (46-116) Total Protein 5.2g/dL (6.4-8.2) Albumin 2.1g/dL (3.4-5.0) Albumin/Globulin Ratio 0.7 (1.0-1.7) Neutrophils (%) (Auto) 88% (31-73) Lymphocytes (%) (Auto) 5% (24-48) Monocytes (%) (Auto) 6% (0-9) Eosinophils (%) (Auto) 0% (0-3) Basophils (%) (Auto) 0% (0-3) Neutrophils # (Auto) 20.3x10^3uL (1.8-7.7) Lymphocytes # (Auto) 1.3x10^3/uL (1.0-4.8) Monocytes # (Auto) 1.4x10^3/uL (0.0-1.1) Eosinophils # (Auto) 0.0x10^3/uL (0.0-0.7) Basophils # (Auto) 0.1x10^3/uL (0.0-0.2) Segmented Neutrophils % 77% (35-66) Band Neutrophils % 9% (0-9) Lymphocytes % 7% (24-48) Monocytes % 6% (0-10) Eosinophils % 1% (0-5) Platelet Estimate Adequate (ADEQUATE) Test 11/20/16 07:45 11/20/16 13:35 O2 Saturation 99% (92-99) 98% (92-99) Arterial Blood pH 7.44 (7.35-7.45) 7.42 (7.35-7.45) Arterial Blood pCO2 at Patient Temp 28mmHg (35-46) 30mmHg (35-46) Arterial Blood pO2 at Patient Temp 161mmHg (65-108) 152mmHg (65-108) Arterial Blood HCO3 19mmol/L (21-28) 19mmol/L (21-28) Arterial Blood Base Excess -4mmol/L (-3-3) -4mmol/L (-3-3) FiO2 40 40 Assessment/Plan Assessment/Plan RENAL CONSULT/ [facility]CO Dictated. # [id number] ARF/ATN OLIGURIA HYPERNATREMIA ACIDOSIS Intravsc volume depleted. Adjust IVF Watch labs, I/Os Thank you. FLORECITA KESSLER MD Nov 20, 2016 14:47
[2016-11-20 15:49] LABS: BILIRUBIN,URINE NEGATIVE (NEG); GLUCOSE,URINE NEGATIVE (NEG); NITRITE,URINE NEGATIVE (NEG); PH,URINE 5.5; PROTEIN,URINE 30 mg/dL (NEG-TRACE); UROBILINOGEN,URINE 0.2 mg/dL (0.2 mg/dL)
[2016-11-20 15:57] LABS: BACTERIA,URINE 0 /HPF (0-FEW); WBC,URINE OCC /HPF (0-4)
[2016-11-20] MEDS: FAMOTIDINE 20 MG/2 ML VIAL IVP SCH (21:23)
[2016-11-21] VITALS (24 sets, daily range): BP systolic 98–119; BP diastolic 45–87
[2016-11-21] MEDS: PROPOFOL 100 ML IV PRN
[2016-11-21] MEDS: PIPERACILLIN/TAZOBACTAM 3.375 GM in IV NORMAL SALINE 50ML 50 ML IV SCH ×4 (00:02→17:04)
[2016-11-21] MEDS: AA 3%/ELECTROLYTE-TPN SOLN/GLY 1,000 ML IV SCH ×2 (04:36→17:04)
[2016-11-21 05:27] LABS: BASO % 0 % (0-3); EOS % 0 % (0-3); HEMATOCRIT 26.5 % (36.0-47.0); HEMOGLOBIN 8.8 g/dL (12.0-15.5); LYMPH # 1.6 x10^3/uL (1.0-4.8); LYMPH % 8 % (24-48); MEAN CORPUSCULAR HEMOGLOBIN 30 pg (25-35); MEAN CORPUSCULAR HGB CONC 33 g/dL (31-37); MEAN CORPUSCULAR VOLUME 89 fL (79-100); MONO % 5 % (0-9); NEUT % 86 % (31-73); PLATELET COUNT 160 x10^3/uL (140-400); RED BLOOD COUNT 2.97 x10^6/uL (3.50-5.40); RED CELL DISTRIBUTION WIDTH 14.5 % (11.5-14.5); WHITE BLOOD COUNT 20.6 x10^3/uL (4.0-11.0)
[2016-11-21 06:05] LABS: ALBUMIN 1.7 g/dL (3.4-5.0); ALBUMIN/GLOBULIN RATIO 0.5 (1.0-1.7); CALCIUM 8.2 mg/dL (8.5-10.1); CREATININE 1.4 mg/dL (0.6-1.0); POTASSIUM 3.6 mmol/L (3.5-5.1); TOTAL BILIRUBIN 0.5 mg/dL (0.2-1.0); TOTAL PROTEIN 4.8 g/dL (6.4-8.2)
--- NOTE | 2016-11-21 06:06 | PDOC ---
PULMONARY PROGRESS NOTES Subjective on vent sedated. on levo. small ett secretion. Vitals Vital Signs Date Time Temp Pulse Resp B/P Pulse Ox O2 Delivery O2 Flow Rate FiO2 11/21/16 05:18 100 Ventilator 11/21/16 05:00 58 14 109/57 11/21/16 04:00 100.0 100.0 Comments ros discussed w rn, as mentioned as above, other sys otherwise neg General: Alert HEENT: Other (nc at perrl, orally intubated, nose clear) Lungs: Crackles, Other Cardiovascular: S1, S2 Abdomen: Soft, Non-tender, Other (no mass) Neuro Exam: Alert Extremities: Other (edema) Skin: Warm Labs Laboratory Tests Test 11/19/16 17:15 11/19/16 18:40 11/19/16 18:47 11/20/16 03:30 Nasal Screen MRSA (PCR) Negative (Negative) White Blood Count 23.4x10^3/uL (4.0-11.0) Red Blood Count 3.90x10^6/uL (3.50-5.40) Hemoglobin 11.8g/dL (12.0-15.5) Hematocrit 35.4% (36.0-47.0) Mean Corpuscular Volume 91fL (79-100) Mean Corpuscular Hemoglobin 30pg (25-35) Mean Corpuscular Hemoglobin Concent 33g/dL (31-37) Red Cell Distribution Width 14.2% (11.5-14.5) Platelet Count 226x10^3/uL (140-400) O2 Saturation 99% (92-99) Arterial Blood pH 7.39 (7.35-7.45) Arterial Blood pCO2 at Patient Temp 29mmHg (35-46) Arterial Blood pO2 at Patient Temp 428mmHg (65-108) Arterial Blood HCO3 18mmol/L (21-28) Arterial Blood Base Excess -6mmol/L (-3-3) FiO2 90 Sodium Level 146mmol/L (136-145) Potassium Level 3.9mmol/L (3.5-5.1) Chloride Level 113mmol/L (98-107) Carbon Dioxide Level 19mmol/L (21-32) Anion Gap 14 (6-14) Blood Urea Nitrogen 21mg/dL (7-20) Creatinine 1.2mg/dL (0.6-1.0) Estimated GFR (Cockcroft-Gault) 44.2 BUN/Creatinine Ratio 18 (6-20) Glucose Level 193mg/dL (70-99) Calcium Level 8.0mg/dL (8.5-10.1) Total Bilirubin 0.5mg/dL (0.2-1.0) Aspartate Amino Transf (AST/SGOT) 21U/L (15-37) Alanine Aminotransferase (ALT/SGPT) 8U/L (14-59) Alkaline Phosphatase 37U/L (46-116) Total Protein 5.2g/dL (6.4-8.2) Albumin 2.1g/dL (3.4-5.0) Albumin/Globulin Ratio 0.7 (1.0-1.7) Test 11/20/16 04:44 11/20/16 07:45 11/20/16 13:35 11/20/16 14:50 White Blood Count 23.1x10^3/uL (4.0-11.0) Red Blood Count 4.28x10^6/uL (3.50-5.40) Hemoglobin 12.7g/dL (12.0-15.5) Hematocrit 38.6% (36.0-47.0) Mean Corpuscular Volume 90fL (79-100) Mean Corpuscular Hemoglobin 30pg (25-35) Mean Corpuscular Hemoglobin Concent 33g/dL (31-37) Red Cell Distribution Width 14.5% (11.5-14.5) Platelet Count 245x10^3/uL (140-400) Neutrophils (%) (Auto) 88% (31-73) Lymphocytes (%) (Auto) 5% (24-48) Monocytes (%) (Auto) 6% (0-9) Eosinophils (%) (Auto) 0% (0-3) Basophils (%) (Auto) 0% (0-3) Neutrophils # (Auto) 20.3x10^3uL (1.8-7.7) Lymphocytes # (Auto) 1.3x10^3/uL (1.0-4.8) Monocytes # (Auto) 1.4x10^3/uL (0.0-1.1) Eosinophils # (Auto) 0.0x10^3/uL (0.0-0.7) Basophils # (Auto) 0.1x10^3/uL (0.0-0.2) Segmented Neutrophils % 77% (35-66) Band Neutrophils % 9% (0-9) Lymphocytes % 7% (24-48) Monocytes % 6% (0-10) Eosinophils % 1% (0-5) Platelet Estimate Adequate (ADEQUATE) O2 Saturation 99% (92-99) 98% (92-99) Arterial Blood pH 7.44 (7.35-7.45) 7.42 (7.35-7.45) Arterial Blood pCO2 at Patient Temp 28mmHg (35-46) 30mmHg (35-46) Arterial Blood pO2 at Patient Temp 161mmHg (65-108) 152mmHg (65-108) Arterial Blood HCO3 19mmol/L (21-28) 19mmol/L (21-28) Arterial Blood Base Excess -4mmol/L (-3-3) -4mmol/L (-3-3) FiO2 40 40 Urine Collection Type U cath Urine Color Green Urine Clarity Turbid Urine pH 5.5 Urine Specific [place] >=1.030 Urine Protein 30mg/dL (NEG-TRACE) Urine Glucose (UA) Negativemg/dL (NEG) Urine Ketones (Stick) Negativemg/dL (NEG) Urine Blood Large (NEG) Urine Nitrite Negative (NEG) Urine Bilirubin Negative (NEG) Urine Urobilinogen Dipstick 0.2mg/dL (0.2 mg/dL) Urine Leukocyte Esterase Negative (NEG) Urine RBC 11-20/HPF (0-2) Urine WBC Occ/HPF (0-4) Urine Amorphous Sediment Present/HPF Urine Bacteria 0/HPF (0-FEW) Urine Hyaline Casts Few/HPF Urine Mucus Mod/LPF Test 11/20/16 16:35 11/21/16 04:00 Lactic Acid Level 2.5mmol/L (0.4-2.0) 1.7mmol/L (0.4-2.0) White Blood Count 20.6x10^3/uL (4.0-11.0) Red Blood Count 2.97x10^6/uL (3.50-5.40) Hemoglobin 8.8g/dL (12.0-15.5) Hematocrit 26.5% (36.0-47.0) Mean Corpuscular Volume 89fL (79-100) Mean Corpuscular Hemoglobin 30pg (25-35) Mean Corpuscular Hemoglobin Concent 33g/dL (31-37) Red Cell Distribution Width 14.5% (11.5-14.5) Platelet Count 160x10^3/uL (140-400) Neutrophils (%) (Auto) 86% (31-73) Lymphocytes (%) (Auto) 8% (24-48) Monocytes (%) (Auto) 5% (0-9) Eosinophils (%) (Auto) 0% (0-3) Basophils (%) (Auto) 0% (0-3) Neutrophils # (Auto) 17.8x10^3uL (1.8-7.7) Lymphocytes # (Auto) 1.6x10^3/uL (1.0-4.8) Monocytes # (Auto) 1.1x10^3/uL (0.0-1.1) Eosinophils # (Auto) 0.0x10^3/uL (0.0-0.7) Basophils # (Auto) 0.0x10^3/uL (0.0-0.2) Laboratory Tests Test 11/20/16 07:45 11/20/16 13:35 11/20/16 14:50 11/20/16 16:35 O2 Saturation 99% (92-99) 98% (92-99) Arterial Blood pH 7.44 (7.35-7.45) 7.42 (7.35-7.45) Arterial Blood pCO2 at Patient Temp 28mmHg (35-46) 30mmHg (35-46) Arterial Blood pO2 at Patient Temp 161mmHg (65-108) 152mmHg (65-108) Arterial Blood HCO3 19mmol/L (21-28) 19mmol/L (21-28) Arterial Blood Base Excess -4mmol/L (-3-3) -4mmol/L (-3-3) FiO2 40 40 Urine Collection Type U cath Urine Color Green Urine Clarity Turbid Urine pH 5.5 Urine Specific [place] >=1.030 Urine Protein 30mg/dL (NEG-TRACE) Urine Glucose (UA) Negativemg/dL (NEG) Urine Ketones (Stick) Negativemg/dL (NEG) Urine Blood Large (NEG) Urine Nitrite Negative (NEG) Urine Bilirubin Negative (NEG) Urine Urobilinogen Dipstick 0.2mg/dL (0.2 mg/dL) Urine Leukocyte Esterase Negative (NEG) Urine RBC 11-20/HPF (0-2) Urine WBC Occ/HPF (0-4) Urine Amorphous Sediment Present/HPF Urine Bacteria 0/HPF (0-FEW) Urine Hyaline Casts Few/HPF Urine Mucus Mod/LPF Lactic Acid Level 2.5mmol/L (0.4-2.0) Test 11/21/16 04:00 White Blood Count 20.6x10^3/uL (4.0-11.0) Red Blood Count 2.97x10^6/uL (3.50-5.40) Hemoglobin 8.8g/dL (12.0-15.5) Hematocrit 26.5% (36.0-47.0) Mean Corpuscular Volume 89fL (79-100) Mean Corpuscular Hemoglobin 30pg (25-35) Mean Corpuscular Hemoglobin Concent 33g/dL (31-37) Red Cell Distribution Width 14.5% (11.5-14.5) Platelet Count 160x10^3/uL (140-400) Neutrophils (%) (Auto) 86% (31-73) Lymphocytes (%) (Auto) 8% (24-48) Monocytes (%) (Auto) 5% (0-9) Eosinophils (%) (Auto) 0% (0-3) Basophils (%) (Auto) 0% (0-3) Neutrophils # (Auto) 17.8x10^3uL (1.8-7.7) Lymphocytes # (Auto) 1.6x10^3/uL (1.0-4.8) Monocytes # (Auto) 1.1x10^3/uL (0.0-1.1) Eosinophils # (Auto) 0.0x10^3/uL (0.0-0.7) Basophils # (Auto) 0.0x10^3/uL (0.0-0.2) Lactic Acid Level 1.7mmol/L (0.4-2.0) Medications Active Scripts Medications Dose Route/Sig Days Date Category Famotidine 20 Mg Tablet 10 Mg PO DAILY 06/03/16 Reported Vitamin D3 (Cholecalciferol (Vitamin D3)) 1,000 Unit Tablet 1,000 Unit PO DAILY 06/03/16 Reported Furosemide 20 Mg Tablet 20 Mg PO DAILY 06/03/16 Reported Sertraline Hcl 25 Mg Tablet 25 Mg PO DAILY 06/03/16 Reported Atenolol 50 Mg Tablet 50 Mg PO DAILY 03/01/14 Reported Olanzapine 5 Mg Tablet 5 Mg PO DAILY 03/01/14 Reported Benztropine Mesylate 2 Mg Tablet 2 Mg PO BID 03/01/14 Reported Carbidopa-Levodopa 10-100 Tab (Carbidopa/Levodopa) 1 Each Tablet 1 Each PO TID 03/01/14 Reported Comments cxr reviewed, l atelectasis effusion Impression . IMPRESSION: 1. Acute respiratory failure, post op. 2. Abnormal chest x-ray. 3. Atelectasis. 4. Vaginal bleeding, status post emergency total abdominal hysterectomy and bilateral salpingo-oophorectomy. Status post PRBC transfusion. 5. Parkinson. 6. TYRELL Plan . PLAN AND RECOMMENDATIONS: 1. Titrate FiO2 to keep O2 saturation 94%. 2. Continue ventilator support. Ventilator setting was reviewed. sbt today, reeval after sbt 3. cont pressors to keep map>65 4. cont abx 5. Elevate head of bed. 6. Pepcid for stress ulcer prophylaxis. 7. Continue pressors to keep mean arterial pressure 65. 8. Monitor respiratory status very closely. 9. cxr increased effusion, lasix given, monitor cr, k The findings and recommendations were discussed with RN, RT. LEANDRA LEA MD Nov 21, 2016 06:06
[2016-11-21 06:16] LABS: HCO3 ABG 20 mmol/L (21-28); PCO2 ABG 27 mmHg (35-46); PH ABG 7.49 (7.35-7.45); PO2 ABG 179 mmHg (65-108); SAT O2 ABG 98 % (92-99)
[2016-11-21 06:53] LABS: FIO2 ABG 40
[2016-11-21] MEDS: FUROSEMIDE 20 MG TABLET PO SCH (08:23)
[2016-11-21] MEDS: BENZTROPINE MESYLATE 1 MG TABLET. PO SCH ×2 (08:23→21:00)
[2016-11-21] MEDS: SERTRALINE 25 MG TABLET. PO SCH (08:23)
[2016-11-21] MEDS: CARBIDOPA/LEVODOPA 10/100MG TABLET PO SCH ×3 (08:23→21:00)
[2016-11-21] MEDS: OLANZAPINE 5 MG TABLET. PO SCH (08:23)
[2016-11-21] MEDS: CHOLECALCIFEROL (VITAMIN D3) 1,000 UNIT TABLET PO SCH (08:23)
--- NOTE | 2016-11-21 08:26 | PDOC ---
Infectious Disease Note Subjective Subjective Fever 100.0 Remains intubated/vent FiO2 40% Hypotensive, still on Levophed 2 mcg + BM PPN Vital Sign Vital Signs Vital Signs Date Time Temp Pulse Resp B/P Pulse Ox O2 Delivery O2 Flow Rate FiO2 11/21/16 08:00 71 16 101/45 100 Ventilator 11/21/16 07:00 99.6 99.6 Physical Exam PHYSICAL EXAM GENERAL: Intubated, calm HEENT: Right pupil reactive. Left pupil dilated and cloudy. OGT, ETT LUNGS: Clear to auscultation anteriorly. HEART: Normal S1 and S2. ABDOMEN: Obese, bowel sounds present, soft. No grimace or guarding to palpation. Abdominal dressing is dry. CRISTOFER with sanguineous drainage. : Casas. EXTREMITIES: No gross edema or cyanosis. SKIN: Without rash. Warm to touch. NEUROLOGIC: Opens eyes spontaneously, no follow commands. + rhythmic movements Peripheral IV: ok Labs Lab Laboratory Tests Test 11/20/16 13:35 11/20/16 14:50 11/20/16 16:35 11/21/16 04:00 O2 Saturation 98% (92-99) Arterial Blood pH 7.42 (7.35-7.45) Arterial Blood pCO2 at Patient Temp 30mmHg (35-46) Arterial Blood pO2 at Patient Temp 152mmHg (65-108) Arterial Blood HCO3 19mmol/L (21-28) Arterial Blood Base Excess -4mmol/L (-3-3) FiO2 40 Urine Collection Type U cath Urine Color Green Urine Clarity Turbid Urine pH 5.5 Urine Specific [place] >=1.030 Urine Protein 30mg/dL (NEG-TRACE) Urine Glucose (UA) Negativemg/dL (NEG) Urine Ketones (Stick) Negativemg/dL (NEG) Urine Blood Large (NEG) Urine Nitrite Negative (NEG) Urine Bilirubin Negative (NEG) Urine Urobilinogen Dipstick 0.2mg/dL (0.2 mg/dL) Urine Leukocyte Esterase Negative (NEG) Urine RBC 11-20/HPF (0-2) Urine WBC Occ/HPF (0-4) Urine Amorphous Sediment Present/HPF Urine Bacteria 0/HPF (0-FEW) Urine Hyaline Casts Few/HPF Urine Mucus Mod/LPF Lactic Acid Level 2.5mmol/L (0.4-2.0) 1.7mmol/L (0.4-2.0) White Blood Count 20.6x10^3/uL (4.0-11.0) Red Blood Count 2.97x10^6/uL (3.50-5.40) Hemoglobin 8.8g/dL (12.0-15.5) Hematocrit 26.5% (36.0-47.0) Mean Corpuscular Volume 89fL (79-100) Mean Corpuscular Hemoglobin 30pg (25-35) Mean Corpuscular Hemoglobin Concent 33g/dL (31-37) Red Cell Distribution Width 14.5% (11.5-14.5) Platelet Count 160x10^3/uL (140-400) Neutrophils (%) (Auto) 86% (31-73) Lymphocytes (%) (Auto) 8% (24-48) Monocytes (%) (Auto) 5% (0-9) Eosinophils (%) (Auto) 0% (0-3) Basophils (%) (Auto) 0% (0-3) Neutrophils # (Auto) 17.8x10^3uL (1.8-7.7) Lymphocytes # (Auto) 1.6x10^3/uL (1.0-4.8) Monocytes # (Auto) 1.1x10^3/uL (0.0-1.1) Eosinophils # (Auto) 0.0x10^3/uL (0.0-0.7) Basophils # (Auto) 0.0x10^3/uL (0.0-0.2) Sodium Level 140mmol/L (136-145) Potassium Level 3.6mmol/L (3.5-5.1) Chloride Level 108mmol/L (98-107) Carbon Dioxide Level 21mmol/L (21-32) Anion Gap 11 (6-14) Blood Urea Nitrogen 31mg/dL (7-20) Creatinine 1.4mg/dL (0.6-1.0) Estimated GFR (Cockcroft-Gault) 37.0 BUN/Creatinine Ratio 22 (6-20) Glucose Level 150mg/dL (70-99) Calcium Level 8.2mg/dL (8.5-10.1) Total Bilirubin 0.5mg/dL (0.2-1.0) Aspartate Amino Transf (AST/SGOT) 17U/L (15-37) Alanine Aminotransferase (ALT/SGPT) 7U/L (14-59) Alkaline Phosphatase 41U/L (46-116) Total Protein 4.8g/dL (6.4-8.2) Albumin 1.7g/dL (3.4-5.0) Albumin/Globulin Ratio 0.5 (1.0-1.7) Test 11/21/16 06:00 O2 Saturation 98% (92-99) Arterial Blood pH 7.49 (7.35-7.45) Arterial Blood pCO2 at Patient Temp 27mmHg (35-46) Arterial Blood pO2 at Patient Temp 179mmHg (65-108) Arterial Blood HCO3 20mmol/L (21-28) Arterial Blood Base Excess -2mmol/L (-3-3) FiO2 40 Objective Assessment Fever, ? post-op, s/p PRBCs , ? UTI Leukocytosis, ? post-op, steroids Hypotension, on Levophed weaning down s/p DEMETRIUS and bilat salpingo-oophorectomy, 11/19 Post-op respiratory failure Renal insufficiency Parkinson's disease w/ tardive dyskinesia Plan [facility] labs, temp f/u cxr and US Supportive care Attending Co-Sign The patient was seen and interviewed as well as examined at the bedside. The chart was reviewed. The case was discussed. Agree with the plan of care. SULAIMAN COYLE APRN Nov 21, 2016 08:26 CHRISTIN LOJA MD Nov 21, 2016 13:13
[2016-11-21] MEDS: CHLORHEXIDINE 0.12% 15 ML MOUTHWASH. MM SCH ×2 (08:39→21:00)
--- NOTE | 2016-11-21 09:47 | PDOC ---
Provider Note Provider Note Pt improving VSS UO increasing Dressing CDI Will pull CRISTOFER in AM FU in [facility] FAN MD Nov 21, 2016 09:47
--- NOTE | 2016-11-21 10:10 | PDOC ---
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) Acute blood loss anemia sec to above UTI, in an elderly mild malnutrition, worsening hypernatremia Parkinsons, she reports as tardive dyskinesia, weakness and debility depression or anxiety, History of Present Illness History of Present Illness Seen in ICU intubated but awake VEnt: PEEP 7 Fio2 60% ABG reviewed ok BUt WBC jumped to 23, fevers ANd NOW ON LEVOPHED CXR reviewed BC pending PLAN: Pressor running thru peripheral On pPN \Plans of extubation today tuesday CBC again tiana (leukocytosis) LActate -normalized 1.7 today from 2s URINE cx shows more than 3 orgs - NEED TO RPT UA collection Dw TEMPLATE FITTER Elizabeth Vitals Vitals Vital Signs Date Time Temp Pulse Resp B/P Pulse Ox O2 Delivery O2 Flow Rate FiO2 11/21/16 09:00 71 16 101/45 100 Ventilator 11/21/16 07:00 99.6 99.6 Physical Exam General: Alert, Oriented X3, Cooperative Heart: Regular rate, No murmurs Lungs: Clear, Other Abdomen: Normal bowel sounds, Soft Extremities: No clubbing, No edema Skin: No breakdown Labs LABS Laboratory Tests Test 11/20/16 13:35 11/20/16 14:50 11/20/16 16:35 11/21/16 04:00 O2 Saturation 98% (92-99) Arterial Blood pH 7.42 (7.35-7.45) Arterial Blood pCO2 at Patient Temp 30mmHg (35-46) Arterial Blood pO2 at Patient Temp 152mmHg (65-108) Arterial Blood HCO3 19mmol/L (21-28) Arterial Blood Base Excess -4mmol/L (-3-3) FiO2 40 Urine Collection Type U cath Urine Color Green Urine Clarity Turbid Urine pH 5.5 Urine Specific [place] >=1.030 Urine Protein 30mg/dL (NEG-TRACE) Urine Glucose (UA) Negativemg/dL (NEG) Urine Ketones (Stick) Negativemg/dL (NEG) Urine Blood Large (NEG) Urine Nitrite Negative (NEG) Urine Bilirubin Negative (NEG) Urine Urobilinogen Dipstick 0.2mg/dL (0.2 mg/dL) Urine Leukocyte Esterase Negative (NEG) Urine RBC 11-20/HPF (0-2) Urine WBC Occ/HPF (0-4) Urine Amorphous Sediment Present/HPF Urine Bacteria 0/HPF (0-FEW) Urine Hyaline Casts Few/HPF Urine Mucus Mod/LPF Lactic Acid Level 2.5mmol/L (0.4-2.0) 1.7mmol/L (0.4-2.0) White Blood Count 20.6x10^3/uL (4.0-11.0) Red Blood Count 2.97x10^6/uL (3.50-5.40) Hemoglobin 8.8g/dL (12.0-15.5) Hematocrit 26.5% (36.0-47.0) Mean Corpuscular Volume 89fL (79-100) Mean Corpuscular Hemoglobin 30pg (25-35) Mean Corpuscular Hemoglobin Concent 33g/dL (31-37) Red Cell Distribution Width 14.5% (11.5-14.5) Platelet Count 160x10^3/uL (140-400) Neutrophils (%) (Auto) 86% (31-73) Lymphocytes (%) (Auto) 8% (24-48) Monocytes (%) (Auto) 5% (0-9) Eosinophils (%) (Auto) 0% (0-3) Basophils (%) (Auto) 0% (0-3) Neutrophils # (Auto) 17.8x10^3uL (1.8-7.7) Lymphocytes # (Auto) 1.6x10^3/uL (1.0-4.8) Monocytes # (Auto) 1.1x10^3/uL (0.0-1.1) Eosinophils # (Auto) 0.0x10^3/uL (0.0-0.7) Basophils # (Auto) 0.0x10^3/uL (0.0-0.2) Sodium Level 140mmol/L (136-145) Potassium Level 3.6mmol/L (3.5-5.1) Chloride Level 108mmol/L (98-107) Carbon Dioxide Level 21mmol/L (21-32) Anion Gap 11 (6-14) Blood Urea Nitrogen 31mg/dL (7-20) Creatinine 1.4mg/dL (0.6-1.0) Estimated GFR (Cockcroft-Gault) 37.0 BUN/Creatinine Ratio 22 (6-20) Glucose Level 150mg/dL (70-99) Calcium Level 8.2mg/dL (8.5-10.1) Total Bilirubin 0.5mg/dL (0.2-1.0) Aspartate Amino Transf (AST/SGOT) 17U/L (15-37) Alanine Aminotransferase (ALT/SGPT) 7U/L (14-59) Alkaline Phosphatase 41U/L (46-116) Total Protein 4.8g/dL (6.4-8.2) Albumin 1.7g/dL (3.4-5.0) Albumin/Globulin Ratio 0.5 (1.0-1.7) Test 11/21/16 06:00 O2 Saturation 98% (92-99) Arterial Blood pH 7.49 (7.35-7.45) Arterial Blood pCO2 at Patient Temp 27mmHg (35-46) Arterial Blood pO2 at Patient Temp 179mmHg (65-108) Arterial Blood HCO3 20mmol/L (21-28) Arterial Blood Base Excess -2mmol/L (-3-3) FiO2 40 Review of Systems Review of Systems intubated Assessment and Plan Assessmemt and Plan Problems Medical Problems: (1) Vaginal bleeding Status: Acute Problems: Comment Review of Relevant I have reviewed the following items clovis (where applicable) has been applied. Labs Laboratory Tests Test 11/19/16 17:15 11/19/16 18:40 11/19/16 18:47 11/20/16 03:30 Nasal Screen MRSA (PCR) Negative (Negative) White Blood Count 23.4x10^3/uL (4.0-11.0) Red Blood Count 3.90x10^6/uL (3.50-5.40) Hemoglobin 11.8g/dL (12.0-15.5) Hematocrit 35.4% (36.0-47.0) Mean Corpuscular Volume 91fL (79-100) Mean Corpuscular Hemoglobin 30pg (25-35) Mean Corpuscular Hemoglobin Concent 33g/dL (31-37) Red Cell Distribution Width 14.2% (11.5-14.5) Platelet Count 226x10^3/uL (140-400) O2 Saturation 99% (92-99) Arterial Blood pH 7.39 (7.35-7.45) Arterial Blood pCO2 at Patient Temp 29mmHg (35-46) Arterial Blood pO2 at Patient Temp 428mmHg (65-108) Arterial Blood HCO3 18mmol/L (21-28) Arterial Blood Base Excess -6mmol/L (-3-3) FiO2 90 Sodium Level 146mmol/L (136-145) Potassium Level 3.9mmol/L (3.5-5.1) Chloride Level 113mmol/L (98-107) Carbon Dioxide Level 19mmol/L (21-32) Anion Gap 14 (6-14) Blood Urea Nitrogen 21mg/dL (7-20) Creatinine 1.2mg/dL (0.6-1.0) Estimated GFR (Cockcroft-Gault) 44.2 BUN/Creatinine Ratio 18 (6-20) Glucose Level 193mg/dL (70-99) Calcium Level 8.0mg/dL (8.5-10.1) Total Bilirubin 0.5mg/dL (0.2-1.0) Aspartate Amino Transf (AST/SGOT) 21U/L (15-37) Alanine Aminotransferase (ALT/SGPT) 8U/L (14-59) Alkaline Phosphatase 37U/L (46-116) Total Protein 5.2g/dL (6.4-8.2) Albumin 2.1g/dL (3.4-5.0) Albumin/Globulin Ratio 0.7 (1.0-1.7) Test 11/20/16 04:44 11/20/16 07:45 11/20/16 13:35 11/20/16 14:50 White Blood Count 23.1x10^3/uL (4.0-11.0) Red Blood Count 4.28x10^6/uL (3.50-5.40) Hemoglobin 12.7g/dL (12.0-15.5) Hematocrit 38.6% (36.0-47.0) Mean Corpuscular Volume 90fL (79-100) Mean Corpuscular Hemoglobin 30pg (25-35) Mean Corpuscular Hemoglobin Concent 33g/dL (31-37) Red Cell Distribution Width 14.5% (11.5-14.5) Platelet Count 245x10^3/uL (140-400) Neutrophils (%) (Auto) 88% (31-73) Lymphocytes (%) (Auto) 5% (24-48) Monocytes (%) (Auto) 6% (0-9) Eosinophils (%) (Auto) 0% (0-3) Basophils (%) (Auto) 0% (0-3) Neutrophils # (Auto) 20.3x10^3uL (1.8-7.7) Lymphocytes # (Auto) 1.3x10^3/uL (1.0-4.8) Monocytes # (Auto) 1.4x10^3/uL (0.0-1.1) Eosinophils # (Auto) 0.0x10^3/uL (0.0-0.7) Basophils # (Auto) 0.1x10^3/uL (0.0-0.2) Segmented Neutrophils % 77% (35-66) Band Neutrophils % 9% (0-9) Lymphocytes % 7% (24-48) Monocytes % 6% (0-10) Eosinophils % 1% (0-5) Platelet Estimate Adequate (ADEQUATE) O2 Saturation 99% (92-99) 98% (92-99) Arterial Blood pH 7.44 (7.35-7.45) 7.42 (7.35-7.45) Arterial Blood pCO2 at Patient Temp 28mmHg (35-46) 30mmHg (35-46) Arterial Blood pO2 at Patient Temp 161mmHg (65-108) 152mmHg (65-108) Arterial Blood HCO3 19mmol/L (21-28) 19mmol/L (21-28) Arterial Blood Base Excess -4mmol/L (-3-3) -4mmol/L (-3-3) FiO2 40 40 Urine Collection Type U cath Urine Color Green Urine Clarity Turbid Urine pH 5.5 Urine Specific [place] >=1.030 Urine Protein 30mg/dL (NEG-TRACE) Urine Glucose (UA) Negativemg/dL (NEG) Urine Ketones (Stick) Negativemg/dL (NEG) Urine Blood Large (NEG) Urine Nitrite Negative (NEG) Urine Bilirubin Negative (NEG) Urine Urobilinogen Dipstick 0.2mg/dL (0.2 mg/dL) Urine Leukocyte Esterase Negative (NEG) Urine RBC 11-20/HPF (0-2) Urine WBC Occ/HPF (0-4) Urine Amorphous Sediment Present/HPF Urine Bacteria 0/HPF (0-FEW) Urine Hyaline Casts Few/HPF Urine Mucus Mod/LPF Test 11/20/16 16:35 11/21/16 04:00 11/21/16 06:00 Lactic Acid Level 2.5mmol/L (0.4-2.0) 1.7mmol/L (0.4-2.0) White Blood Count 20.6x10^3/uL (4.0-11.0) Red Blood Count 2.97x10^6/uL (3.50-5.40) Hemoglobin 8.8g/dL (12.0-15.5) Hematocrit 26.5% (36.0-47.0) Mean Corpuscular Volume 89fL (79-100) Mean Corpuscular Hemoglobin 30pg (25-35) Mean Corpuscular Hemoglobin Concent 33g/dL (31-37) Red Cell Distribution Width 14.5% (11.5-14.5) Platelet Count 160x10^3/uL (140-400) Neutrophils (%) (Auto) 86% (31-73) Lymphocytes (%) (Auto) 8% (24-48) Monocytes (%) (Auto) 5% (0-9) Eosinophils (%) (Auto) 0% (0-3) Basophils (%) (Auto) 0% (0-3) Neutrophils # (Auto) 17.8x10^3uL (1.8-7.7) Lymphocytes # (Auto) 1.6x10^3/uL (1.0-4.8) Monocytes # (Auto) 1.1x10^3/uL (0.0-1.1) Eosinophils # (Auto) 0.0x10^3/uL (0.0-0.7) Basophils # (Auto) 0.0x10^3/uL (0.0-0.2) Sodium Level 140mmol/L (136-145) Potassium Level 3.6mmol/L (3.5-5.1) Chloride Level 108mmol/L (98-107) Carbon Dioxide Level 21mmol/L (21-32) Anion Gap 11 (6-14) Blood Urea Nitrogen 31mg/dL (7-20) Creatinine 1.4mg/dL (0.6-1.0) Estimated GFR (Cockcroft-Gault) 37.0 BUN/Creatinine Ratio 22 (6-20) Glucose Level 150mg/dL (70-99) Calcium Level 8.2mg/dL (8.5-10.1) Total Bilirubin 0.5mg/dL (0.2-1.0) Aspartate Amino Transf (AST/SGOT) 17U/L (15-37) Alanine Aminotransferase (ALT/SGPT) 7U/L (14-59) Alkaline Phosphatase 41U/L (46-116) Total Protein 4.8g/dL (6.4-8.2) Albumin 1.7g/dL (3.4-5.0) Albumin/Globulin Ratio 0.5 (1.0-1.7) O2 Saturation 98% (92-99) Arterial Blood pH 7.49 (7.35-7.45) Arterial Blood pCO2 at Patient Temp 27mmHg (35-46) Arterial Blood pO2 at Patient Temp 179mmHg (65-108) Arterial Blood HCO3 20mmol/L (21-28) Arterial Blood Base Excess -2mmol/L (-3-3) FiO2 40 Laboratory Tests Test 11/20/16 13:35 11/20/16 14:50 11/20/16 16:35 11/21/16 04:00 O2 Saturation 98% (92-99) Arterial Blood pH 7.42 (7.35-7.45) Arterial Blood pCO2 at Patient Temp 30mmHg (35-46) Arterial Blood pO2 at Patient Temp 152mmHg (65-108) Arterial Blood HCO3 19mmol/L (21-28) Arterial Blood Base Excess -4mmol/L (-3-3) FiO2 40 Urine Collection Type U cath Urine Color Green Urine Clarity Turbid Urine pH 5.5 Urine Specific [place] >=1.030 Urine Protein 30mg/dL (NEG-TRACE) Urine Glucose (UA) Negativemg/dL (NEG) Urine Ketones (Stick) Negativemg/dL (NEG) Urine Blood Large (NEG) Urine Nitrite Negative (NEG) Urine Bilirubin Negative (NEG) Urine Urobilinogen Dipstick 0.2mg/dL (0.2 mg/dL) Urine Leukocyte Esterase Negative (NEG) Urine RBC 11-20/HPF (0-2) Urine WBC Occ/HPF (0-4) Urine Amorphous Sediment Present/HPF Urine Bacteria 0/HPF (0-FEW) Urine Hyaline Casts Few/HPF Urine Mucus Mod/LPF Lactic Acid Level 2.5mmol/L (0.4-2.0) 1.7mmol/L (0.4-2.0) White Blood Count 20.6x10^3/uL (4.0-11.0) Red Blood Count 2.97x10^6/uL (3.50-5.40) Hemoglobin 8.8g/dL (12.0-15.5) Hematocrit 26.5% (36.0-47.0) Mean Corpuscular Volume 89fL (79-100) Mean Corpuscular Hemoglobin 30pg (25-35) Mean Corpuscular Hemoglobin Concent 33g/dL (31-37) Red Cell Distribution Width 14.5% (11.5-14.5) Platelet Count 160x10^3/uL (140-400) Neutrophils (%) (Auto) 86% (31-73) Lymphocytes (%) (Auto) 8% (24-48) Monocytes (%) (Auto) 5% (0-9) Eosinophils (%) (Auto) 0% (0-3) Basophils (%) (Auto) 0% (0-3) Neutrophils # (Auto) 17.8x10^3uL (1.8-7.7) Lymphocytes # (Auto) 1.6x10^3/uL (1.0-4.8) Monocytes # (Auto) 1.1x10^3/uL (0.0-1.1) Eosinophils # (Auto) 0.0x10^3/uL (0.0-0.7) Basophils # (Auto) 0.0x10^3/uL (0.0-0.2) Sodium Level 140mmol/L (136-145) Potassium Level 3.6mmol/L (3.5-5.1) Chloride Level 108mmol/L (98-107) Carbon Dioxide Level 21mmol/L (21-32) Anion Gap 11 (6-14) Blood Urea Nitrogen 31mg/dL (7-20) Creatinine 1.4mg/dL (0.6-1.0) Estimated GFR (Cockcroft-Gault) 37.0 BUN/Creatinine Ratio 22 (6-20) Glucose Level 150mg/dL (70-99) Calcium Level 8.2mg/dL (8.5-10.1) Total Bilirubin 0.5mg/dL (0.2-1.0) Aspartate Amino Transf (AST/SGOT) 17U/L (15-37) Alanine Aminotransferase (ALT/SGPT) 7U/L (14-59) Alkaline Phosphatase 41U/L (46-116) Total Protein 4.8g/dL (6.4-8.2) Albumin 1.7g/dL (3.4-5.0) Albumin/Globulin Ratio 0.5 (1.0-1.7) Test 11/21/16 06:00 O2 Saturation 98% (92-99) Arterial Blood pH 7.49 (7.35-7.45) Arterial Blood pCO2 at Patient Temp 27mmHg (35-46) Arterial Blood pO2 at Patient Temp 179mmHg (65-108) Arterial Blood HCO3 20mmol/L (21-28) Arterial Blood Base Excess -2mmol/L (-3-3) FiO2 40 Microbiology 11/20/16 Blood Culture - Preliminary, Resulted NO GROWTH AFTER 1 DAY 11/15/16 Urine Culture - Final, Complete 11/15/16 Urine Culture Result 1 (CAT) - Final, Complete Medications Current Medications Sodium Chloride (Iv Sodium Chloride 0.9% 500ml Bag) 500 ml @ 500 mls/hr 1X ONCE IV Last administered on 11/15/16t 21:30; Start 11/15/16 at 21:30; Stop at 22:29; Status DC Ondansetron HCl (Zofran) 4 mg PRN Q8HRS PRN IV NAUSEA/VOMITING; Start 11/15/16 at 23:45; Stop 11/16/16 at 23:44; Status DC Morphine Sulfate 2 mg PRN Q2HR PRN IV SEVERE PAIN; Start 11/15/16 at 23:45; Stop 11/16/16 at 23:44; Status DC Acetaminophen 650 mg 650 mg PRN Q4HRS PRN PO FEVER; Start 11/15/16 at 23:45; Stop 11/16/16 at 23:44; Status DC Ceftriaxone Sodium (Rocephin 1gm Ivpb For Omni) 50 ml @ 100 mls/hr 1X ONCE IV Last administered on 11/16/16 03:08; Start 11/16/16 at 01:00; Stop 11/16/16 at 01:29; Status DC Atenolol (Tenormin) 50 mg DAILY PO Last administered on 11/19/16 09:30; Start 11/16/16 at 09:30; Stop 11/20/16 at 08:36; Status DC Carbidopa/Levodopa (Sinemet 10/100) 1 tab TID PO Last administered on 11/21/16 08:23; Start 11/16/16 at 09:30 Vitamin D (Vitamin D3) 1,000 unit DAILY PO Last administered on 11/21/16 08:23 ; Start 11/16/16 at 09:30 Famotidine (Pepcid) 10 mg DAILY PO Last administered on 11/18/16 08:21; Start 11/16/16 at 09:30; Stop 11/20/16 at 07:28; Status DC Furosemide (Lasix) 20 mg DAILY PO Last administered on 11/21/16 08:23; Start at 09:30 Olanzapine (Zyprexa) 5 mg DAILY PO Last administered on 11/21/16 08:23; Start 11/16/16 at 09:30 Sertraline HCl (Zoloft) 25 mg DAILY PO Last administered on 11/21/16 08:23; Start 11/16/16 at 09:30 Benztropine Mesylate 2 mg 2 mg BID PO Last administered on 11/21/16 08:23; Start 11/16/16 at 09:30 Ceftriaxone Sodium 1 gm/ Sodium Chloride 50 ml @ 100 mls/hr Q24H IV Last administered on 11/19/16 21:43; Start 11/16/16 at 21:00; Stop 11/20/16 at 10:05; Status DC Sodium Chloride (Iv Sodium Chloride 0.9% 1000ml Bag) 1,000 ml @ 100 mls/hr 1X ONCE IV Last administered on 11/17/16 12:52; Start 11/17/16 at 13:00; Stop at 22:59; Status DC Ondansetron HCl (Zofran) 4 mg PRN Q6HRS PRN IV Nausea, 1st Choice; Start at 13:45; Stop 11/17/16 at 13:50; Status DC Fentanyl Citrate (Fentanyl 2ml Vial) 25 mcg PRN Q5MIN PRN IV Acute Pain; Start 11/17/16 at 13:45; Stop 11/18/16 at 13:44; Status DC Fentanyl Citrate (Fentanyl 2ml Vial) 50 mcg PRN Q5MIN PRN IV Acute Pain; Start 11/17/16 at 13:45; Stop 11/18/16 at 13:44; Status DC Morphine Sulfate 1 mg PRN Q10MIN PRN IV Mild Pain; Start 11/17/16 at 13:45; Stop 11/18/16 at 13:44; Status DC Morphine Sulfate 2 mg 2 mg PRN Q10MIN PRN IV Moderate Pain; Start 11/17/16 at 13 :45; Stop 11/18/16 at 13:44; Status DC Lactated Ringer's (Iv Lactated Ringers) 1,000 ml @ 50 mls/hr Q20H IV Last administered on 11/17/16t 14:15; Start 11/17/16 at 13:34; Stop 11/18/16 at 01:33; Status DC Ondansetron HCl (Zofran) 4 mg PRN Q6HRS PRN IV Nausea, 1st Choice; Start at 13:50; Stop 11/18/16 at 13:44; Status DC Fentanyl Citrate (Fentanyl 2ml Vial) 100 mcg STK-MED ONCE .ROUTE ; Start at 14:36; Stop 11/17/16 at 14:37; Status DC Dexamethasone Sodium Phosphate (Decadron) 20 mg STK-MED ONCE .ROUTE ; Start 11/17 at 14:36; Stop 11/17/16 at 14:37; Status DC Ondansetron HCl 4 mg 4 mg STK-MED ONCE .ROUTE ; Start 11/17/16 at 14:36; Stop 11/17/16 at 14:37; Status DC Propofol (Diprivan) 20 ml @ As Directed STK-MED ONCE IV ; Start 11/17/16 at 14:36 ; Stop 11/17/16 at 14:37; Status DC Lidocaine HCl (Lidocaine HCl 2% Abboject) 100 mg STK-MED ONCE .ROUTE ; Start 11/17/16 at 14:36; Stop 11/17/16 at 14:37; Status DC Phenylephrine HCl 1 mg STK-MED ONCE IV ; Start 11/17/16 at 15:00; Stop 11/17/16 at 15:01; Status DC Sevoflurane (Ultane) 30 ml STK-MED ONCE IH ; Start 11/17/16 at 15:30; Stop at 15:31; Status DC Ondansetron HCl (Zofran) 4 mg PRN Q6HRS PRN IV NAUSEA/VOMITING; Start 11/19/16 at 07:00; Stop 11/20/16 at 06:59; Status DC Fentanyl Citrate (Fentanyl 2ml Vial) 25 mcg PRN Q5MIN PRN IV MILD PAIN; Start 11/19/16 at 07:00; Stop 11/20/16 at 06:59; Status DC Fentanyl Citrate (Fentanyl 2ml Vial) 50 mcg PRN Q5MIN PRN IV MODERATE PAIN Last administered on 11/19/16 19:39; Start 11/19/16 at 07:00; Stop 11/20/16 at 06: 59; Status DC Morphine Sulfate 1 mg 1 mg PRN Q10MIN PRN IV SEVERE PAIN; Start 11/19/16 at 06: 45; Stop 11/20/16 at 06:44; Status DC Lactated Ringer's (Iv Lactated Ringers) 1,000 ml @ 0 mls/hr Q0M IV Last administered on 11/19/16 12:56; Start 11/19/16 at 07:00; Stop 11/19/16 at 13:00; Status DC Lidocaine HCl 2 ml PRN 1X PRN ID PRIOR TO IV START; Start 11/19/16 at 07:00; Stop 11/20/16 at 06:59; Status DC Hydromorphone HCl (Dilaudid) 0.5 mg PRN Q10MIN PRN IV SEV PAIN, Second choice; Start 11/19/16 at 06:45; Stop 11/20/16 at 06:44; Status DC Prochlorperazine Edisylate (Compazine) 5 mg PACU PRN PRN IV NAUSEA, MRX1; Start 11/19/16 at 06:45; Stop 11/20/16 at 06:44; Status DC Benztropine Mesylate (Cogentin) 2 mg STK-MED ONCE .ROUTE ; Start 11/16/16 at 09: 00; Stop 11/19/16 at 11:52; Status DC Benztropine Mesylate (Cogentin) 2 mg STK-MED ONCE .ROUTE ; Start 11/16/16 at 09: 00; Stop 11/19/16 at 11:52; Status DC Benztropine Mesylate (Cogentin) 2 mg STK-MED ONCE .ROUTE ; Start 11/17/16 at 09: 00; Stop 11/19/16 at 11:52; Status DC Benztropine Mesylate (Cogentin) 2 mg STK-MED ONCE .ROUTE ; Start 11/18/16 at 09: 00; Stop 11/19/16 at 11:53; Status DC Benztropine Mesylate 2 mg 2 mg STK-MED ONCE .ROUTE ; Start 11/19/16 at 01:00; Stop 11/19/16 at 11:53; Status DC Cefazolin Sodium/ Dextrose 50 ml @ 100 mls/hr 1X PREOP IV Last administered on 11/19/16t 14:57; Start 11/19/16 at 13:00; Stop 11/20/16 at 18:00; Status DC Cefazolin Sodium/ Dextrose 50 ml @ As Directed STK-MED ONCE IV ; Start 11/19/16 at 13:03; Stop 11/19/16 at 13:04; Status DC Amino Acids/ Glycerin/ Electrolytes (Procalamine) 1,000 ml @ 80 mls/hr [id number] IV Last administered on 11/21/16t 04:36; Start 11/19/16 at 14:00 Rocuronium [place] (Zemuron) 50 mg STK-MED ONCE .ROUTE ; Start 11/19/16 at 13:35 ; Stop 11/19/16 at 13:36; Status DC Desflurane 60 ml 60 ml STK-MED ONCE IH ; Start 11/19/16 at 13:35; Stop 11/19/16 at 13:36; Status DC Propofol (Diprivan) 20 ml @ As Directed STK-MED ONCE IV ; Start 11/19/16 at 13:35 ; Stop 11/19/16 at 13:36; Status DC Dexamethasone Sodium Phosphate (Decadron) 20 mg STK-MED ONCE .ROUTE ; Start 11/19 at 13:35; Stop 11/19/16 at 13:36; Status DC Ondansetron HCl (Zofran) 4 mg STK-MED ONCE .ROUTE ; Start 11/19/16 at 13:35; Stop 11/19/16 at 13:36; Status DC Lidocaine HCl (Lidocaine HCl 2% Abboject) 100 mg STK-MED ONCE .ROUTE ; Start 11/19/16 at 13:35; Stop 11/19/16 at 13:36; Status DC Phenylephrine HCl 1 mg STK-MED ONCE IV ; Start 11/19/16 at 13:37; Stop 11/19/16 at 13:38; Status DC Fentanyl Citrate (Fentanyl 2ml Vial) 100 mcg STK-MED ONCE .ROUTE ; Start at 13:59; Stop 11/19/16 at 14:00; Status DC Rocuronium [place] (Zemuron) 50 mg STK-MED ONCE .ROUTE ; Start 11/19/16 at 14:26 ; Stop 11/19/16 at 14:27; Status DC Ondansetron HCl (Zofran) 4 mg STK-MED ONCE .ROUTE ; Start 11/19/16 at 14:44; Stop 11/19/16 at 14:45; Status DC Glycopyrrolate (Robinul) 1 mg STK-MED ONCE .ROUTE ; Start 11/19/16 at 14:44; Stop 11/19/16 at 14:45; Status DC Neostigmine Methylsulfate 5 mg STK-MED ONCE .ROUTE ; Start 11/19/16 at 14:44; Stop 11/19/16 at 14:45; Status DC Desflurane (Suprane) 60 ml STK-MED ONCE IH ; Start 11/19/16 at 14:58; Stop at 14:59; Status DC Ephedrine Sulfate 50 mg STK-MED ONCE IV ; Start 11/19/16 at 15:05; Stop 11/19/16 at 15:06; Status DC Methylene Blue (Methylene Blue) 1 ml STK-MED ONCE .ROUTE ; Start 11/19/16 at 15: 11; Stop 11/19/16 at 15:12; Status DC Phenylephrine HCl 1 mg STK-MED ONCE IV ; Start 11/19/16 at 15:25; Stop 11/19/16 at 15:26; Status DC Vasopressin (Vasostrict) 20 unit STK-MED ONCE .ROUTE ; Start 11/19/16 at 15:54; Stop 11/19/16 at 15:55; Status DC Epinephrine HCl 1 mg 1 mg STK-MED ONCE .ROUTE ; Start 11/19/16 at 15:56; Stop 11/19/16 at 15:57; Status DC Sodium Chloride 1,000 ml @ 125 mls/hr 1X ONCE IV Last administered on 21:42; Start 11/19/16 at 19:30; Stop 11/20/16 at 03:29; Status DC Propofol 100 ml @ 0 mls/hr CONT PRN IV SEE I/O RECORD Last administered on 00:00; Start 11/19/16 at 20:00 Norepinephrine Bitartrate 8 mg/ Sodium Chloride 258 ml @ 0 mls/hr CONT PRN IV SEE I/O RECORD Last administered on 11/19/16 21:44; Start 11/19/16 at 21:30 Sodium Chloride (Iv Sodium Chloride 0.9% 1000ml Bag) 1,000 ml @ 125 mls/hr Q8H IV Last administered on 11/20/16 10:15; Start 11/20/16 at 10:00; Stop 11/20/16 at 14:49; Status DC Famotidine 20 mg 20 mg QHS IVP Last administered on 11/20/16 21:23; Start at 21:00 Piperacillin Sod/ Tazobactam Sod 3.375 gm/Sodium Chloride 50 ml @ 100 mls/hr Q6HRS IV Last administered on 11/21/16 05:49; Start 11/20/16 at 11:00 Sodium Chloride (Iv Sodium Chloride 0.45%) 1,000 ml @ 125 mls/hr 1X ONCE IV Last administered on 11/20/16 15:08; Start 11/20/16 at 14:45; Stop 11/20/16 at 22: 44; Status DC Sodium Bicarbonate 50 meq 1X ONCE IV Last administered on 11/20/16 15:03; Start 11/20/16 at 14:45; Stop 11/20/16 at 14:51; Status DC Chlorhexidine Gluconate (Peridex) 15 ml BID MM Last administered on 11/21/16t 08 :39; Start 11/21/16 at 09:00 Active Scripts Active Reported Famotidine 20 Mg Tablet 10 Mg PO DAILY Vitamin D3 (Cholecalciferol (Vitamin D3)) 1,000 Unit Tablet 1,000 Unit PO DAILY Furosemide 20 Mg Tablet 20 Mg PO DAILY Sertraline Hcl 25 Mg Tablet 25 Mg PO DAILY Atenolol 50 Mg Tablet 50 Mg PO DAILY Olanzapine 5 Mg Tablet 5 Mg PO DAILY Benztropine Mesylate 2 Mg Tablet 2 Mg PO BID Carbidopa-Levodopa 10-100 Tab (Carbidopa/Levodopa) 1 Each Tablet 1 Each PO TID Vitals/I & O Vital Sign - Last 24 Hours 11/20/16 11/20/16 11/20/16 11/20/16 11:00 11:53 12:00 12:00 Temp 99.3 99.3 99.3 99.3 Pulse 68 100 Resp 17 B/P 102/56 104/53 Pulse Ox 100 100 100 O2 Delivery Ventilator Ventilator PRESSURE SUPPORT AT 5 Ventilator 11/20/16 11/20/16 11/20/16 11/20/16 12:00 13:00 14:00 14:05 Pulse 88 78 Resp 20 14 B/P 132/58 109/53 Pulse Ox 100 100 O2 Delivery Mechanical Ventilator Ventilator Ventilator Ventilator 11/20/16 11/20/16 11/20/16 11/20/16 15:00 16:00 16:00 16:05 Temp 98.9 98.9 Pulse 64 60 Resp 14 14 B/P 78/44 113/54 Pulse Ox 100 100 100 O2 Delivery Ventilator Ventilator Mechanical Ventilator Ventilator 11/20/16 11/20/16 11/20/16 11/20/16 17:00 18:00 19:00 19:24 Pulse 57 65 53 Resp 14 14 14 B/P 99/49 118/62 115/76 Pulse Ox 100 100 100 99 O2 Delivery Ventilator Ventilator Ventilator Ventilator 11/20/16 11/20/16 11/20/16 11/20/16 20:00 20:00 21:00 21:16 Temp 98.4 98.4 Pulse 50 56 Resp 14 14 B/P 93/49 119/65 Pulse Ox 100 100 100 O2 Delivery Ventilator Mechanical Ventilator Ventilator Ventilator 11/20/16 11/20/16 11/20/16 11/21/16 22:00 23:00 23:47 00:00 Pulse 70 51 55 Resp 14 14 14 B/P 137/59 119/60 118/58 Pulse Ox 100 100 94 100 O2 Delivery Ventilator Ventilator Ventilator Ventilator 11/21/16 11/21/16 11/21/16 11/21/16 00:00 01:00 01:25 02:00 Pulse 56 56 Resp 14 14 B/P 113/48 115/57 Pulse Ox 100 100 100 O2 Delivery Mechanical Ventilator Ventilator Ventilator Ventilator 11/21/16 11/21/16 11/21/16 11/21/16 03:00 03:21 04:00 04:00 Temp 100.0 100.0 Pulse 60 60 Resp 14 14 B/P 110/52 110/57 Pulse Ox 100 100 100 O2 Delivery Ventilator Ventilator Ventilator Mechanical Ventilator 11/21/16 11/21/16 11/21/16 11/21/16 05:00 05:18 06:00 07:00 Temp 99.6 99.6 Pulse 58 60 64 Resp 14 14 14 B/P 109/57 119/54 116/55 Pulse Ox 100 100 100 100 O2 Delivery Ventilator Ventilator Ventilator Ventilator 11/21/16 11/21/16 11/21/16 11/21/16 07:38 08:00 08:00 09:00 Pulse 71 71 Resp 16 16 B/P 101/45 101/45 Pulse Ox 100 100 100 O2 Delivery Ventilator Mechanical Ventilator Ventilator Ventilator Intake and Output 11/20/16 11/20/16 11/21/16 14:59 22:59 06:59 Intake Total 200 ml 2370 ml 1962 ml Output Total 111 ml 105 ml 465 ml Balance 89 ml 2265 ml 1497 ml FARZANEH SALES MD Nov 21, 2016 10:10
--- NOTE | 2016-11-21 10:13 | RAD ---
Portable AP semi upright view CXR: Clinical indications: Respiratory failure. Follow-up study. Comparison: November 20, 2016. IMPRESSION: There has been increase in left-sided pleural effusion and left lung base compressive atelectasis or left lung base consolidation. Right lung field remains clear. No pneumothorax is seen. ET tube and NG tube are unchanged in position. Heart size and mediastinum are stable.
--- NOTE | 2016-11-21 10:44 | RAD ---
Renal sonography History: Acute renal failure. Findings: The longitudinal and AP and transverse dimensions of the right kidney are 10.1 cm and 3.8 cm and 4.5 cm respectively. The longitudinal and AP and transverse dimensions of the left kidney are 10.8 cm and 5.7 cm and 5.0 cm respectively. Mild left-sided hydronephrosis is seen. No hydronephrosis is seen on the right side. No renal mass or perinephric fluid collection is evident on either side. The urinary bladder cannot be evaluated due to bandaging of the pelvis from recent hysterectomy. Incidental note is made of gallstones within the gallbladder. IMPRESSION: Mild left-sided hydronephrosis. Cholelithiasis.
--- NOTE | 2016-11-21 14:21 | CONS ---
DATE OF CONSULTATION: 11/20/2016 REASON FOR CONSULTATION: Oliguria and acute renal failure. HISTORY OF PRESENT ILLNESS: The patient is a 70-year-old lady hospitalized for significant vaginal bleed. She underwent an emergency hysterectomy involving a DEMETRIUS-BSO. She is now on the ventilator. History obtained through the chart. Noticed her declined urine output; creatinine has gone from 0.8 from 1.2. Sodium also slightly elevated. Low-grade fever. Blood pressure is fluctuant. No known history of renal failure. Blood pressure has been maintained and supported at times with Levophed. No reports of diarrhea. She is on procalamine for her nutrition and also getting normal saline at 125 mL an hour. No other related complaints. PAST MEDICAL HISTORY: 1. Significant for hypertension. 2. Depression. 3. Anxiety. 4. Uterine fibroids and recent vaginal bleed. 5. Schizophrenia and Parkinson's disease. PAST SURGICAL HISTORY: As above. REVIEW OF SYSTEMS: Cannot be obtained. SOCIAL HISTORY: Cannot be obtained. FAMILY HISTORY: Unobtainable. ALLERGIES: REVIEWED. MEDICATIONS: Reviewed. PHYSICAL EXAMINATION: GENERAL: Middle-aged lady, appears in no distress, awake, going through some shaking movements here and there. VITAL SIGNS: Show blood pressure running in the , heart rate into the 80s. Eyes are opened, does not connect, intubated. No distress noted. NECK: Supple. LUNGS: Decreased bases. No rhonchi, rales or wheezing. CARDIOVASCULAR: Regular rate and rhythm, no rub. ABDOMEN: Soft and nondistended. Bowel sounds faint. EXTREMITIES: No edema. NEUROLOGIC: Cannot be determined due to intubation and sedation. LABORATORY DATA: Reviewed, pertinent ones shows a white count of 23.1, hemoglobin of 12.7, and hematocrit 38.6. Last urinalysis from four days ago shows a specific gravity of 1.015. Sodium 146, potassium 3.9, chloride 113, bicarbonate 19, down from 29. Her gap has gone from 6 to 14. BUN of 21 and creatinine of 1.2. Liver enzymes show low albumin of 2.1. IMPRESSION: 1. Acute renal failure. 2. Hypernatremia. 3. Oliguria. 4. Metabolic acidosis. 5. Acute respiratory failure. PLAN: 1. At this stage, we would continue with volume support; however, would adjust intravenous fluids. Monitor intake and output. 2. Acute renal failure and oliguria, mainly due to relative intravascular volume depletion. Obtain urine studies. We also obtain a renal ultrasound. May require free water flushes through the OG tube with tube feedings. Thank you very much for the consultation. I appreciate the referral. We will follow. FLORECITA KESSLER MD DR: CHLEE/leigha JOB#: [id number] / [id number]
--- NOTE | 2016-11-21 15:17 | OP ---
DATE OF SURGERY: 11/19/2016 PREOPERATIVE DIAGNOSES: Postmenopausal bleeding, symptomatic leiomyomata. POSTOPERATIVE DIAGNOSES: Postmenopausal bleeding, symptomatic leiomyomata. PROCEDURE: Total abdominal hysterectomy with bilateral salpingo-oophorectomy. SURGEON: Dr. Higinio Enamorado. LABORATORY MECHANIC HELPER: None. ANESTHESIA: General. ESTIMATED BLOOD LOSS: 1200 mL. FLUIDS: Crystalloid. SPECIMENS: Uterus, tubes, and ovaries. COMPLICATIONS: Intraoperative bleeding. CONDITION: Stable. DESCRIPTION OF PROCEDURE: After risks, benefits, indications, and alternatives discussed with the patient and the patient's son, the patient was brought to the OR theater, placed in supine position. After adequate general anesthesia, the patient was prepped and draped in usual sterile manner. A low transverse Pfannenstiel incision was made sharply with a scalpel and subcutaneous tissues were taken down with Bovie cautery. Rectus fascia was nicked in the midline with Bovie cautery and extended laterally in each direction with Bovie cautery. Upper edge of rectus fascia was grasped x 2 with Bayron clamps, elevated above the rectus muscle, both bluntly and sharply with Bovie cautery. Same procedure was carried out on lower edge of rectus fascia. Rectus muscle was split in midline with Bovie cautery. Parietal peritoneum was entered bluntly with gloved hand. With gentle stretch on the rectus muscle, room was made for placing the Lexx retractor. There was a large globular posterior fibroid going into the lower uterine segment that was attempted to be delivered ____ an incision secondary to its size impending in the posterior cul-de-sac and ovarian fossa. Only partial elevation of the fibroid mass was able to be placed out of operative incision. The posterior area of the fibroid covered by uterine serosa was incised with Bovie cautery, dissected with Metzenbaum scissors. Fibroid was grasped with a double-tooth tenaculum and dissected away from its attachments. Secondary to the large deformity and distortion of normal anatomy, it was felt that repair of this space would be indicated at this time. It was performed with a running 0 Vicryl stitch. Attention was then now turned to the more manageable hysterectomy using an Endo NICHOLAS. The infundibulopelvic ligament was ligated and cut. This was done through the superior aspect of the broad ligament and through the round ligament, and this was done on both sides bilaterally. Bladder flap was created with Metzenbaum scissors, and the bladder had been considerably distorted from the posterior fibroid and was splayed all over the lower uterine segment of the uterus and what was the body of the cervix ____ retroperitoneal, identified the uterus on the left side. Retroperitoneal approach was performed. At this time, the ureter was identified. I switch sides with the right side with retroperitoneal approach. The ureter was identified with peristalsis motion. The remaining of the procedure was done to a clam and tie cut fascia with Kallie clamps. There were some difficulties secondary to the fibroid distorting the cervix where the neck of the cervix began and where the distal portion of the cervix ended. This was delineated by frog legging the patient, sticking her hand in the vagina and ascertaining where the vagina was and where most likely the cervix would be located. This was done to a clamp-cut fashion until that area was reached from the vaginal approach, and this was clamped and crossed. It appeared that the whole cervix, even though it was very thin, was in the specimen in the proximal portion of the vagina was noted. The vaginal cuff was reapproximated with 2-0 Vicryl in an interrupted fashion. Bleeding was controlled with [id number] stitches. However, a considerable intraoperative bleeding occurred secondary to the large fibroid and distortion of the anatomy and being unable to control bleeding immediately without discerning where the important structures were. After bleeding was controlled, the patient was getting intraoperative blood transfusion. She remained stable. Attention was then turned to the ligation of the ureters. Once again retroperitoneal approach that was started was once again continued on the left side of the patient's pelvis where the ureter had previously not been identified. With the uterus removed, fibroid removed, and the bleeding controlled, the left ureter was identified, and it was way below. The dissection was peristalsing. Once again, the right ureter was checked. It was peristalsing and also identified. Retroperitoneum was reapproximated. Bladder flap was reapproximated. Good hemostasis was assured. All raw areas were controlled with Fouzia and FloSeal underneath these closures. Secondary to the patient's previous bleeding, although there was no discernible bleeding at this point, #10 [place] Clyde Gooden was placed lateral to the left inferior epigastric in the usual fashion, and a drain was placed in the posterior cul-de-sac. All sponges were removed. The Lexx retractor had previously been placed with O'Rupert-O'Frazier retractor, and it was removed. The pelvis was irrigated with warm normal saline. No further bleeding was noted. Rectus muscles were reapproximated with 3-0 Vicryl in a running manner. Rectus muscle was inspected and noted to be hemostatic. Rectus fascia was reapproximated with 0 PDS in a running manner. The subcutaneous tissue was irrigated copiously with warm normal saline. Skin was reapproximated with Insorb luis armando. Sponge, needle, and instrument counts were correct x 2 per nursing staff. HIGINIO ENAMORADO MD DR: VIOLETTA/leigha JOB#: [id number] / [id number]
[2016-11-21 15:46] LABS: HCO3 ABG 20 mmol/L (21-28); PCO2 ABG 28 mmHg (35-46); PH ABG 7.48 (7.35-7.45); PO2 ABG 168 mmHg (65-108); SAT O2 ABG 98 % (92-99)
[2016-11-21 15:47] LABS: FIO2 ABG 40
--- NOTE | 2016-11-21 15:50 | PDOC ---
Provider Note Provider Note Provider Note RENAL F/U : CHECO S : Intubated. No new c/o No active CP or SOA. O : VSS Afebrile. Neck ; Supple Lungs : Non labored. Decreased bases. CVS : RRR + S3 Abd : Portly, sl distended. No masses. Non tender. Ext : Trace/stable edema. Labs, meds and I/Os : Reviewed. ARF/ATN. HYPERNATREMIA ACIDOSIS. Labs fair Na better Cr a bit higher. Supportive care. Watch labs. FLORECITA KESSLER MD Nov 21, 2016 15:50
[2016-11-21] MEDS ORDERED: ACETAMINOPHEN 650 MG SUPP.RECT. PR PRN (21:00)
[2016-11-21] MEDS: FAMOTIDINE 20 MG/2 ML VIAL IVP SCH (21:16)
[2016-11-22] VITALS (14 sets, daily range): BP systolic 95–121; BP diastolic 43–57
[2016-11-22] MEDS: PIPERACILLIN/TAZOBACTAM 3.375 GM in IV NORMAL SALINE 50ML 50 ML IV SCH ×5 (00:07→23:57)
[2016-11-22] MEDS: AA 3%/ELECTROLYTE-TPN SOLN/GLY 1,000 ML IV SCH ×2 (05:01→17:00)
[2016-11-22] MEDS: CHLORHEXIDINE 0.12% 15 ML MOUTHWASH. MM SCH (07:33)
--- NOTE | 2016-11-22 07:45 | PDOC ---
Infectious Disease Note Subjective Subjective awake, extubated ROS ROS unable to do Vital Sign Vital Signs Vital Signs Date Time Temp Pulse Resp B/P Pulse Ox O2 Delivery O2 Flow Rate FiO2 11/22/16 06:00 55 20 95/46 98 Room Air 11/22/16 04:00 98.3 98.3 11/21/16 16:05 12.0 Physical Exam PHYSICAL EXAM GENERAL: NAD, Alert HEENT: PERRL, OC/OP NECK: Supple, no JVD, no LN LUNGS: Clear HEART: S1S2, no gallop, no murmur ABD: Soft, NT, no organomegaly, no rebound EXT: No edema, no cyanosis LIVESTOCK CARETAKER: Alert, non verbal SKIN: No rash IV: ok Labs Lab Laboratory Tests Test 11/21/16 15:40 O2 Saturation 98% (92-99) Arterial Blood pH 7.48 (7.35-7.45) Arterial Blood pCO2 at Patient Temp 28mmHg (35-46) Arterial Blood pO2 at Patient Temp 168mmHg (65-108) Arterial Blood HCO3 20mmol/L (21-28) Arterial Blood Base Excess -2mmol/L (-3-3) FiO2 40 Objective Assessment Fever, ? post-op, s/p PRBCs , ? UTI Leukocytosis, ? post-op, steroids Hypotension, on Levophed weaning down s/p DEMETRIUS and bilat salpingo-oophorectomy, 11/19 Post-op respiratory failure Renal insufficiency Parkinson's disease w/ tardive dyskinesia Plan Plan of Care Zosyn BC neg Monitor labs, temp Supportive care CHRISTIN LOJA MD Nov 22, 2016 07:45
[2016-11-22 08:50] LABS: BASO % 0 % (0-3); EOS % 1 % (0-3); HEMATOCRIT 24.1 % (36.0-47.0); LYMPH # 1.5 x10^3/uL (1.0-4.8); LYMPH % 12 % (24-48); MEAN CORPUSCULAR HEMOGLOBIN 30 pg (25-35); MEAN CORPUSCULAR HGB CONC 33 g/dL (31-37); MEAN CORPUSCULAR VOLUME 91 fL (79-100); MONO % 5 % (0-9); NEUT % 81 % (31-73); PLATELET COUNT 140 x10^3/uL (140-400); RED BLOOD COUNT 2.66 x10^6/uL (3.50-5.40); RED CELL DISTRIBUTION WIDTH 14.5 % (11.5-14.5)
[2016-11-22] MEDS: CARBIDOPA/LEVODOPA 10/100MG TABLET PO SCH ×3 (08:51→21:00)
[2016-11-22] MEDS: SERTRALINE 25 MG TABLET. PO SCH (08:51)
[2016-11-22] MEDS: FUROSEMIDE 20 MG TABLET PO SCH (08:51)
[2016-11-22] MEDS: BENZTROPINE MESYLATE 1 MG TABLET. PO SCH ×2 (08:51→21:00)
[2016-11-22] MEDS: CHOLECALCIFEROL (VITAMIN D3) 1,000 UNIT TABLET PO SCH (08:51)
[2016-11-22] MEDS: OLANZAPINE 5 MG TABLET. PO SCH (08:51)
[2016-11-22 08:59] LABS: ALBUMIN 1.7 g/dL (3.4-5.0); ALBUMIN/GLOBULIN RATIO 0.5 (1.0-1.7); CALCIUM 8.2 mg/dL (8.5-10.1); CREATININE 1.4 mg/dL (0.6-1.0); POTASSIUM 3.4 mmol/L (3.5-5.1); TOTAL BILIRUBIN 0.5 mg/dL (0.2-1.0); TOTAL PROTEIN 5.1 g/dL (6.4-8.2)
--- NOTE | 2016-11-22 10:23 | PDOC ---
Renal-Progress Notes Subjective Notes Notes NONE, SLEEPY History of Present Illness Hx of present illness STABLE Vitals Vitals Vital Signs Date Time Temp Pulse Resp B/P Pulse Ox O2 Delivery O2 Flow Rate FiO2 11/22/16 09:00 71 16 110/57 98 Room Air 11/22/16 08:00 98.4 98.4 11/21/16 16:05 12.0 Weight Weight [ ] I.O. Intake and Output Intake and Output 11/22/16 07:00 Intake Total 1972 ml Output Total 1953 ml Balance 19 ml Intake Oral 0 ml IV Total 1492 ml Other 480 ml Output Urine Total 1900 ml Drainage Total 53 ml Labs Labs Laboratory Tests Test 11/21/16 15:40 11/22/16 08:30 O2 Saturation 98% (92-99) Arterial Blood pH 7.48 (7.35-7.45) Arterial Blood pCO2 at Patient Temp 28mmHg (35-46) Arterial Blood pO2 at Patient Temp 168mmHg (65-108) Arterial Blood HCO3 20mmol/L (21-28) Arterial Blood Base Excess -2mmol/L (-3-3) FiO2 40 White Blood Count 12.0x10^3/uL (4.0-11.0) Red Blood Count 2.66x10^6/uL (3.50-5.40) Hemoglobin 8.0g/dL (12.0-15.5) Hematocrit 24.1% (36.0-47.0) Mean Corpuscular Volume 91fL (79-100) Mean Corpuscular Hemoglobin 30pg (25-35) Mean Corpuscular Hemoglobin Concent 33g/dL (31-37) Red Cell Distribution Width 14.5% (11.5-14.5) Platelet Count 140x10^3/uL (140-400) Neutrophils (%) (Auto) 81% (31-73) Lymphocytes (%) (Auto) 12% (24-48) Monocytes (%) (Auto) 5% (0-9) Eosinophils (%) (Auto) 1% (0-3) Basophils (%) (Auto) 0% (0-3) Neutrophils # (Auto) 9.7x10^3uL (1.8-7.7) Lymphocytes # (Auto) 1.5x10^3/uL (1.0-4.8) Monocytes # (Auto) 0.6x10^3/uL (0.0-1.1) Eosinophils # (Auto) 0.1x10^3/uL (0.0-0.7) Basophils # (Auto) 0.0x10^3/uL (0.0-0.2) Sodium Level 144mmol/L (136-145) Potassium Level 3.4mmol/L (3.5-5.1) Chloride Level 111mmol/L (98-107) Carbon Dioxide Level 26mmol/L (21-32) Anion Gap 7 (6-14) Blood Urea Nitrogen 26mg/dL (7-20) Creatinine 1.4mg/dL (0.6-1.0) Estimated GFR (Cockcroft-Gault) 37.0 BUN/Creatinine Ratio 19 (6-20) Glucose Level 113mg/dL (70-99) Calcium Level 8.2mg/dL (8.5-10.1) Total Bilirubin 0.5mg/dL (0.2-1.0) Aspartate Amino Transf (AST/SGOT) 13U/L (15-37) Alanine Aminotransferase (ALT/SGPT) 10U/L (14-59) Alkaline Phosphatase 47U/L (46-116) Total Protein 5.1g/dL (6.4-8.2) Albumin 1.7g/dL (3.4-5.0) Albumin/Globulin Ratio 0.5 (1.0-1.7) Micro Micro Microbiology 11/20/16 Blood Culture - Preliminary, Resulted NO GROWTH AFTER 2 DAYS 11/15/16 Urine Culture - Final, Complete 11/15/16 Urine Culture Result 1 (CAT) - Final, Complete Review of Systems Constitutional: yes: no symptom reported Physical Exam General Appearance: no apparent distress Skin: warm Respiratory: decreased breath sounds Heart: S1S2 Abdomen: soft Extremities: pulses present Neurology: confused Musculoskeletal: low back pain Assessment Assessment IMP SEPSIS HYPOTENSION LEUCOCYTOSIS ENCEPHALOPATHY TYRELL WITH CR UP TO 1.4 HYPERNATREMIA-BETTER PLAN CONT ANTIBIOTICS CONT WITH PPN FOR NOW PRESSORS OFF WHEN FEASIBLE WILL FOLLOW JUAN HAM MD Nov 22, 2016 10:23
[2016-11-22] MEDS ORDERED: POTASSIUM CHLORIDE 20MEQ 50 ML IV ONE (11:15)
[2016-11-22] MEDS: POTASSIUM CHLORIDE 10MEQ 100 ML IV SCH ×2 (12:00→13:00)
--- NOTE | 2016-11-22 12:57 | PDOC ---
PROGRESS NOTES Chief Complaint Chief Complaint Vaginal bleed ASSESSMENT AND PLAN: 1. Vaginal bleed: s/p hysterectomy (11/19/16). awaiting path 2. Sepsis: severe, with hypotensive shock: recovering, off pressors. blood cult NGTD 3. Anemia: acute blood loss. s/p PRBC x3. H/H slowly slipping. transfuse for Hgb <7.5 4. Leukocytosis: slowly improving. 2/2 infect + bleed 5. UTI: POA. urine cult w/ mult organisms; already on Zosyn. not sure if rpt cult of benefit 6. TYRELL: appears vasomotor. IVF. appreciate Dr Garcia's input 7. Hypokalemia: replete 8. Hypernatremia: resolved. 9. Protein malnutrition: mod at admit, hypoalbuminemia worsening with acute inflammation. protein supplements 10. Parkinson's: on Sinemet 11. Depression/anxiety: continue home meds 12. Tardive dyskinesia: likely 2/2 psych meds 13. Nutrition: on PPN. start PO feeds when cleared by speech path 14. Prophylaxis: H2B 15: Dispo; ok to transfer to med/surg Vitals Vitals Vital Signs Date Time Temp Pulse Resp B/P Pulse Ox O2 Delivery O2 Flow Rate FiO2 11/22/16 11:55 99.0 85 16 106/49 96 Room Air 99.0 11/21/16 16:05 12.0 Physical Exam General: Alert, Cooperative Heart: Regular rate, No murmurs Lungs: Clear Abdomen: Normal bowel sounds, Soft, Other (pelvic incision covered with gauze) Extremities: No clubbing, No edema Skin: No rashes, Other Labs LABS Laboratory Tests Test 11/21/16 15:40 11/22/16 08:30 O2 Saturation 98% (92-99) Arterial Blood pH 7.48 (7.35-7.45) Arterial Blood pCO2 at Patient Temp 28mmHg (35-46) Arterial Blood pO2 at Patient Temp 168mmHg (65-108) Arterial Blood HCO3 20mmol/L (21-28) Arterial Blood Base Excess -2mmol/L (-3-3) FiO2 40 White Blood Count 12.0x10^3/uL (4.0-11.0) Red Blood Count 2.66x10^6/uL (3.50-5.40) Hemoglobin 8.0g/dL (12.0-15.5) Hematocrit 24.1% (36.0-47.0) Mean Corpuscular Volume 91fL (79-100) Mean Corpuscular Hemoglobin 30pg (25-35) Mean Corpuscular Hemoglobin Concent 33g/dL (31-37) Red Cell Distribution Width 14.5% (11.5-14.5) Platelet Count 140x10^3/uL (140-400) Neutrophils (%) (Auto) 81% (31-73) Lymphocytes (%) (Auto) 12% (24-48) Monocytes (%) (Auto) 5% (0-9) Eosinophils (%) (Auto) 1% (0-3) Basophils (%) (Auto) 0% (0-3) Neutrophils # (Auto) 9.7x10^3uL (1.8-7.7) Lymphocytes # (Auto) 1.5x10^3/uL (1.0-4.8) Monocytes # (Auto) 0.6x10^3/uL (0.0-1.1) Eosinophils # (Auto) 0.1x10^3/uL (0.0-0.7) Basophils # (Auto) 0.0x10^3/uL (0.0-0.2) Sodium Level 144mmol/L (136-145) Potassium Level 3.4mmol/L (3.5-5.1) Chloride Level 111mmol/L (98-107) Carbon Dioxide Level 26mmol/L (21-32) Anion Gap 7 (6-14) Blood Urea Nitrogen 26mg/dL (7-20) Creatinine 1.4mg/dL (0.6-1.0) Estimated GFR (Cockcroft-Gault) 37.0 BUN/Creatinine Ratio 19 (6-20) Glucose Level 113mg/dL (70-99) Calcium Level 8.2mg/dL (8.5-10.1) Total Bilirubin 0.5mg/dL (0.2-1.0) Aspartate Amino Transf (AST/SGOT) 13U/L (15-37) Alanine Aminotransferase (ALT/SGPT) 10U/L (14-59) Alkaline Phosphatase 47U/L (46-116) Total Protein 5.1g/dL (6.4-8.2) Albumin 1.7g/dL (3.4-5.0) Albumin/Globulin Ratio 0.5 (1.0-1.7) Review of Systems Review of Systems doing ok, abd pain tolerable. denies pain anywhere else. MADELEINE BOND MD Nov 22, 2016 12:57
--- NOTE | 2016-11-22 13:05 | PDOC ---
Objective: Objective: Per RN - no GI bleeding, having brown stools. Awaiting swallow eval s/p extubation before feeding. Vital Signs: Vital Signs Date Time Temp Pulse Resp B/P Pulse Ox O2 Delivery O2 Flow Rate FiO2 11/22/16 11:55 99.0 85 16 106/49 96 Room Air 99.0 11/21/16 16:05 12.0 Labs: Laboratory Tests Test 11/21/16 15:40 11/22/16 08:30 O2 Saturation 98% Arterial Blood pH 7.48 Arterial Blood pCO2 at Patient Temp 28mmHg Arterial Blood pO2 at Patient Temp 168mmHg Arterial Blood HCO3 20mmol/L Arterial Blood Base Excess -2mmol/L FiO2 40 White Blood Count 12.0x10^3/uL Red Blood Count 2.66x10^6/uL Hemoglobin 8.0g/dL Hematocrit 24.1% Mean Corpuscular Volume 91fL Mean Corpuscular Hemoglobin 30pg Mean Corpuscular Hemoglobin Concent 33g/dL Red Cell Distribution Width 14.5% Platelet Count 140x10^3/uL Neutrophils (%) (Auto) 81% Lymphocytes (%) (Auto) 12% Monocytes (%) (Auto) 5% Eosinophils (%) (Auto) 1% Basophils (%) (Auto) 0% Neutrophils # (Auto) 9.7x10^3uL Lymphocytes # (Auto) 1.5x10^3/uL Monocytes # (Auto) 0.6x10^3/uL Eosinophils # (Auto) 0.1x10^3/uL Basophils # (Auto) 0.0x10^3/uL Sodium Level 144mmol/L Potassium Level 3.4mmol/L Chloride Level 111mmol/L Carbon Dioxide Level 26mmol/L Anion Gap 7 Blood Urea Nitrogen 26mg/dL Creatinine 1.4mg/dL Estimated GFR (Cockcroft-Gault) 37.0 BUN/Creatinine Ratio 19 Glucose Level 113mg/dL Calcium Level 8.2mg/dL Total Bilirubin 0.5mg/dL Aspartate Amino Transf (AST/SGOT) 13U/L Alanine Aminotransferase (ALT/SGPT) 10U/L Alkaline Phosphatase 47U/L Total Protein 5.1g/dL Albumin 1.7g/dL Albumin/Globulin Ratio 0.5 PE: GEN: NAD LUNGS: CTAB HEART: RRR ABD: BS+, soft NEURO/PSYCH: awake, doesn't speak to me A/P: Vaginal bleed s/p hysterectomy, post-op resp failure -s/p extubation Sepsis, hypotension Anemia -heme positive stool noted last week, some drift in Hgb (post-op) -on H2 kadie -- Stable GI-[place]. Follow Hgb, await swallow eval. GRACIE DUDLEY Nov 22, 2016 13:05
--- NOTE | 2016-11-22 14:14 | PDOC ---
PULMONARY PROGRESS NOTES Subjective extubated Vitals Vital Signs Date Time Temp Pulse Resp B/P Pulse Ox O2 Delivery O2 Flow Rate FiO2 11/22/16 11:55 99.0 85 16 106/49 96 Room Air 99.0 11/21/16 16:05 12.0 HEENT: Other (nc at perrl, orally intubated, nose clear) Lungs: Clear Cardiovascular: S1, S2 Abdomen: Soft, Non-tender, Other (no mass) Neuro Exam: Alert Extremities: Other (edema) Skin: Warm Labs Laboratory Tests Test 11/20/16 14:50 11/20/16 16:35 11/21/16 04:00 11/21/16 06:00 Urine Collection Type U cath Urine Color Green Urine Clarity Turbid Urine pH 5.5 Urine Specific [place] >=1.030 Urine Protein 30mg/dL (NEG-TRACE) Urine Glucose (UA) Negativemg/dL (NEG) Urine Ketones (Stick) Negativemg/dL (NEG) Urine Blood Large (NEG) Urine Nitrite Negative (NEG) Urine Bilirubin Negative (NEG) Urine Urobilinogen Dipstick 0.2mg/dL (0.2 mg/dL) Urine Leukocyte Esterase Negative (NEG) Urine RBC 11-20/HPF (0-2) Urine WBC Occ/HPF (0-4) Urine Amorphous Sediment Present/HPF Urine Bacteria 0/HPF (0-FEW) Urine Hyaline Casts Few/HPF Urine Mucus Mod/LPF Lactic Acid Level 2.5mmol/L (0.4-2.0) 1.7mmol/L (0.4-2.0) White Blood Count 20.6x10^3/uL (4.0-11.0) Red Blood Count 2.97x10^6/uL (3.50-5.40) Hemoglobin 8.8g/dL (12.0-15.5) Hematocrit 26.5% (36.0-47.0) Mean Corpuscular Volume 89fL (79-100) Mean Corpuscular Hemoglobin 30pg (25-35) Mean Corpuscular Hemoglobin Concent 33g/dL (31-37) Red Cell Distribution Width 14.5% (11.5-14.5) Platelet Count 160x10^3/uL (140-400) Neutrophils (%) (Auto) 86% (31-73) Lymphocytes (%) (Auto) 8% (24-48) Monocytes (%) (Auto) 5% (0-9) Eosinophils (%) (Auto) 0% (0-3) Basophils (%) (Auto) 0% (0-3) Neutrophils # (Auto) 17.8x10^3uL (1.8-7.7) Lymphocytes # (Auto) 1.6x10^3/uL (1.0-4.8) Monocytes # (Auto) 1.1x10^3/uL (0.0-1.1) Eosinophils # (Auto) 0.0x10^3/uL (0.0-0.7) Basophils # (Auto) 0.0x10^3/uL (0.0-0.2) Sodium Level 140mmol/L (136-145) Potassium Level 3.6mmol/L (3.5-5.1) Chloride Level 108mmol/L (98-107) Carbon Dioxide Level 21mmol/L (21-32) Anion Gap 11 (6-14) Blood Urea Nitrogen 31mg/dL (7-20) Creatinine 1.4mg/dL (0.6-1.0) Estimated GFR (Cockcroft-Gault) 37.0 BUN/Creatinine Ratio 22 (6-20) Glucose Level 150mg/dL (70-99) Calcium Level 8.2mg/dL (8.5-10.1) Total Bilirubin 0.5mg/dL (0.2-1.0) Aspartate Amino Transf (AST/SGOT) 17U/L (15-37) Alanine Aminotransferase (ALT/SGPT) 7U/L (14-59) Alkaline Phosphatase 41U/L (46-116) Total Protein 4.8g/dL (6.4-8.2) Albumin 1.7g/dL (3.4-5.0) Albumin/Globulin Ratio 0.5 (1.0-1.7) O2 Saturation 98% (92-99) Arterial Blood pH 7.49 (7.35-7.45) Arterial Blood pCO2 at Patient Temp 27mmHg (35-46) Arterial Blood pO2 at Patient Temp 179mmHg (65-108) Arterial Blood HCO3 20mmol/L (21-28) Arterial Blood Base Excess -2mmol/L (-3-3) FiO2 40 Test 11/21/16 15:40 11/22/16 08:30 O2 Saturation 98% (92-99) Arterial Blood pH 7.48 (7.35-7.45) Arterial Blood pCO2 at Patient Temp 28mmHg (35-46) Arterial Blood pO2 at Patient Temp 168mmHg (65-108) Arterial Blood HCO3 20mmol/L (21-28) Arterial Blood Base Excess -2mmol/L (-3-3) FiO2 40 White Blood Count 12.0x10^3/uL (4.0-11.0) Red Blood Count 2.66x10^6/uL (3.50-5.40) Hemoglobin 8.0g/dL (12.0-15.5) Hematocrit 24.1% (36.0-47.0) Mean Corpuscular Volume 91fL (79-100) Mean Corpuscular Hemoglobin 30pg (25-35) Mean Corpuscular Hemoglobin Concent 33g/dL (31-37) Red Cell Distribution Width 14.5% (11.5-14.5) Platelet Count 140x10^3/uL (140-400) Neutrophils (%) (Auto) 81% (31-73) Lymphocytes (%) (Auto) 12% (24-48) Monocytes (%) (Auto) 5% (0-9) Eosinophils (%) (Auto) 1% (0-3) Basophils (%) (Auto) 0% (0-3) Neutrophils # (Auto) 9.7x10^3uL (1.8-7.7) Lymphocytes # (Auto) 1.5x10^3/uL (1.0-4.8) Monocytes # (Auto) 0.6x10^3/uL (0.0-1.1) Eosinophils # (Auto) 0.1x10^3/uL (0.0-0.7) Basophils # (Auto) 0.0x10^3/uL (0.0-0.2) Sodium Level 144mmol/L (136-145) Potassium Level 3.4mmol/L (3.5-5.1) Chloride Level 111mmol/L (98-107) Carbon Dioxide Level 26mmol/L (21-32) Anion Gap 7 (6-14) Blood Urea Nitrogen 26mg/dL (7-20) Creatinine 1.4mg/dL (0.6-1.0) Estimated GFR (Cockcroft-Gault) 37.0 BUN/Creatinine Ratio 19 (6-20) Glucose Level 113mg/dL (70-99) Calcium Level 8.2mg/dL (8.5-10.1) Total Bilirubin 0.5mg/dL (0.2-1.0) Aspartate Amino Transf (AST/SGOT) 13U/L (15-37) Alanine Aminotransferase (ALT/SGPT) 10U/L (14-59) Alkaline Phosphatase 47U/L (46-116) Total Protein 5.1g/dL (6.4-8.2) Albumin 1.7g/dL (3.4-5.0) Albumin/Globulin Ratio 0.5 (1.0-1.7) Laboratory Tests Test 11/21/16 15:40 11/22/16 08:30 O2 Saturation 98% (92-99) Arterial Blood pH 7.48 (7.35-7.45) Arterial Blood pCO2 at Patient Temp 28mmHg (35-46) Arterial Blood pO2 at Patient Temp 168mmHg (65-108) Arterial Blood HCO3 20mmol/L (21-28) Arterial Blood Base Excess -2mmol/L (-3-3) FiO2 40 White Blood Count 12.0x10^3/uL (4.0-11.0) Red Blood Count 2.66x10^6/uL (3.50-5.40) Hemoglobin 8.0g/dL (12.0-15.5) Hematocrit 24.1% (36.0-47.0) Mean Corpuscular Volume 91fL (79-100) Mean Corpuscular Hemoglobin 30pg (25-35) Mean Corpuscular Hemoglobin Concent 33g/dL (31-37) Red Cell Distribution Width 14.5% (11.5-14.5) Platelet Count 140x10^3/uL (140-400) Neutrophils (%) (Auto) 81% (31-73) Lymphocytes (%) (Auto) 12% (24-48) Monocytes (%) (Auto) 5% (0-9) Eosinophils (%) (Auto) 1% (0-3) Basophils (%) (Auto) 0% (0-3) Neutrophils # (Auto) 9.7x10^3uL (1.8-7.7) Lymphocytes # (Auto) 1.5x10^3/uL (1.0-4.8) Monocytes # (Auto) 0.6x10^3/uL (0.0-1.1) Eosinophils # (Auto) 0.1x10^3/uL (0.0-0.7) Basophils # (Auto) 0.0x10^3/uL (0.0-0.2) Sodium Level 144mmol/L (136-145) Potassium Level 3.4mmol/L (3.5-5.1) Chloride Level 111mmol/L (98-107) Carbon Dioxide Level 26mmol/L (21-32) Anion Gap 7 (6-14) Blood Urea Nitrogen 26mg/dL (7-20) Creatinine 1.4mg/dL (0.6-1.0) Estimated GFR (Cockcroft-Gault) 37.0 BUN/Creatinine Ratio 19 (6-20) Glucose Level 113mg/dL (70-99) Calcium Level 8.2mg/dL (8.5-10.1) Total Bilirubin 0.5mg/dL (0.2-1.0) Aspartate Amino Transf (AST/SGOT) 13U/L (15-37) Alanine Aminotransferase (ALT/SGPT) 10U/L (14-59) Alkaline Phosphatase 47U/L (46-116) Total Protein 5.1g/dL (6.4-8.2) Albumin 1.7g/dL (3.4-5.0) Albumin/Globulin Ratio 0.5 (1.0-1.7) Medications Active Scripts Medications Dose Route/Sig Days Date Category Famotidine 20 Mg Tablet 10 Mg PO DAILY 06/03/16 Reported Vitamin D3 (Cholecalciferol (Vitamin D3)) 1,000 Unit Tablet 1,000 Unit PO DAILY 06/03/16 Reported Furosemide 20 Mg Tablet 20 Mg PO DAILY 06/03/16 Reported Sertraline Hcl 25 Mg Tablet 25 Mg PO DAILY 06/03/16 Reported Atenolol 50 Mg Tablet 50 Mg PO DAILY 03/01/14 Reported Olanzapine 5 Mg Tablet 5 Mg PO DAILY 03/01/14 Reported Benztropine Mesylate 2 Mg Tablet 2 Mg PO BID 03/01/14 Reported Carbidopa-Levodopa 10-100 Tab (Carbidopa/Levodopa) 1 Each Tablet 1 Each PO TID 03/01/14 Reported Comments cxr reviewed, Impression . 1. Expected Acute respiratory failure sec to surgery 2. Abnormal chest x-ray. 3. Atelectasis. 4. Vaginal bleeding, status post emergency total abdominal hysterectomy and bilateral salpingo-oophorectomy. Status post PRBC transfusion. 5. Parkinson. 6. TYRELL 7. Acute blood loss anemia Plan . 1. Titrate FiO2 to keep O2 saturation 94%. 2. extubated 11/21 3. off pressors 4. cont abx per ID 5. Elevate head of bed. 6. Pepcid for stress ulcer prophylaxis. 7. Monitor H/H 8. repeat cxr for effusion BITA DE JESUS MD Nov 22, 2016 14:13
--- NOTE | 2016-11-22 18:05 | PDOC ---
Provider Note Provider Note Progressing Dressing [facility] CBC - BMP 11/22/16 08:30 ABAD KIRKLAND MD Nov 22, 2016 18:05
[2016-11-22 18:28] LABS: HEMATOCRIT 30.9 % (36.0-47.0); HEMOGLOBIN 10.8 g/dL (12.0-15.5); RED BLOOD COUNT 3.21 x10^6/uL (3.50-5.40); RED CELL DISTRIBUTION WIDTH 14.3 % (11.5-14.5); WHITE BLOOD COUNT 4.3 x10^3/uL (4.0-11.0)
[2016-11-22] MEDS: FAMOTIDINE 20 MG/2 ML VIAL IVP SCH (21:35)
[2016-11-23] VITALS (7 sets, daily range): BP systolic 110–140; BP diastolic 42–58
[2016-11-23] MEDS: AA 3%/ELECTROLYTE-TPN SOLN/GLY 1,000 ML IV SCH ×2 (03:10→18:00)
[2016-11-23 03:43] LABS: BASO # 0.1 x10^3/uL (0.0-0.2); BASO % 1 % (0-3); EOS % 3 % (0-3); HEMATOCRIT 23.5 % (36.0-47.0); HEMOGLOBIN 7.9 g/dL (12.0-15.5); LYMPH # 1.6 x10^3/uL (1.0-4.8); LYMPH % 16 % (24-48); MEAN CORPUSCULAR HEMOGLOBIN 30 pg (25-35); MEAN CORPUSCULAR HGB CONC 34 g/dL (31-37); MEAN CORPUSCULAR VOLUME 91 fL (79-100); MONO % 6 % (0-9); NEUT % 75 % (31-73); PLATELET COUNT 153 x10^3/uL (140-400); RED CELL DISTRIBUTION WIDTH 14.2 % (11.5-14.5); WHITE BLOOD COUNT 9.7 x10^3/uL (4.0-11.0)
[2016-11-23 03:55] LABS: CALCIUM 8.1 mg/dL (8.5-10.1); CREATININE 1.2 mg/dL (0.6-1.0); GFR 44.2; POTASSIUM 3.5 mmol/L (3.5-5.1)
[2016-11-23] MEDS: PIPERACILLIN/TAZOBACTAM 3.375 GM in IV NORMAL SALINE 50ML 50 ML IV SCH ×4 (06:02→23:49)
[2016-11-23] MEDS: CHOLECALCIFEROL (VITAMIN D3) 1,000 UNIT TABLET PO SCH (07:28)
[2016-11-23] MEDS: FUROSEMIDE 20 MG TABLET PO SCH (07:28)
[2016-11-23] MEDS: SERTRALINE 25 MG TABLET. PO SCH (07:28)
[2016-11-23] MEDS: OLANZAPINE 5 MG TABLET. PO SCH (07:28)
[2016-11-23] MEDS: BENZTROPINE MESYLATE 1 MG TABLET. PO SCH ×2 (07:28→21:43)
[2016-11-23] MEDS: CARBIDOPA/LEVODOPA 10/100MG TABLET PO SCH ×3 (07:28→21:43)
--- NOTE | 2016-11-23 09:22 | PDOC ---
PULMONARY PROGRESS NOTES Subjective extubated 11/21 NO RESP DISTRESS Vitals Vital Signs Date Time Temp Pulse Resp B/P Pulse Ox O2 Delivery O2 Flow Rate FiO2 11/23/16 07:40 Room Air 11/23/16 07:00 98.0 56 18 110/42 95 98.0 ROS: No Nausea, No Chest Pain, No Abdominal Pain, No Increase Cough Lungs: Clear Cardiovascular: S1, S2 Abdomen: Soft, Non-tender Neuro Exam: Alert Extremities: Other (edema) Skin: Warm Labs Laboratory Tests Test 11/21/16 15:40 11/22/16 08:30 11/22/16 18:00 11/23/16 03:20 O2 Saturation 98% (92-99) Arterial Blood pH 7.48 (7.35-7.45) Arterial Blood pCO2 at Patient Temp 28mmHg (35-46) Arterial Blood pO2 at Patient Temp 168mmHg (65-108) Arterial Blood HCO3 20mmol/L (21-28) Arterial Blood Base Excess -2mmol/L (-3-3) FiO2 40 White Blood Count 12.0x10^3/uL (4.0-11.0) 4.3x10^3/uL (4.0-11.0) 9.7x10^3/uL (4.0-11.0) Red Blood Count 2.66x10^6/uL (3.50-5.40) 3.21x10^6/uL (3.50-5.40) 2.60x10^6/uL (3.50-5.40) Hemoglobin 8.0g/dL (12.0-15.5) 10.8g/dL (12.0-15.5) 7.9g/dL (12.0-15.5) Hematocrit 24.1% (36.0-47.0) 30.9% (36.0-47.0) 23.5% (36.0-47.0) Mean Corpuscular Volume 91fL (79-100) 96fL (79-100) 91fL (79-100) Mean Corpuscular Hemoglobin 30pg (25-35) 34pg (25-35) 30pg (25-35) Mean Corpuscular Hemoglobin Concent 33g/dL (31-37) 35g/dL (31-37) 34g/dL (31-37) Red Cell Distribution Width 14.5% (11.5-14.5) 14.3% (11.5-14.5) 14.2% (11.5-14.5) Platelet Count 140x10^3/uL (140-400) 171x10^3/uL (140-400) 153x10^3/uL (140-400) Neutrophils (%) (Auto) 81% (31-73) 75% (31-73) Lymphocytes (%) (Auto) 12% (24-48) 16% (24-48) Monocytes (%) (Auto) 5% (0-9) 6% (0-9) Eosinophils (%) (Auto) 1% (0-3) 3% (0-3) Basophils (%) (Auto) 0% (0-3) 1% (0-3) Neutrophils # (Auto) 9.7x10^3uL (1.8-7.7) 7.2x10^3uL (1.8-7.7) Lymphocytes # (Auto) 1.5x10^3/uL (1.0-4.8) 1.6x10^3/uL (1.0-4.8) Monocytes # (Auto) 0.6x10^3/uL (0.0-1.1) 0.6x10^3/uL (0.0-1.1) Eosinophils # (Auto) 0.1x10^3/uL (0.0-0.7) 0.2x10^3/uL (0.0-0.7) Basophils # (Auto) 0.0x10^3/uL (0.0-0.2) 0.1x10^3/uL (0.0-0.2) Sodium Level 144mmol/L (136-145) 144mmol/L (136-145) Potassium Level 3.4mmol/L (3.5-5.1) 3.5mmol/L (3.5-5.1) Chloride Level 111mmol/L (98-107) 110mmol/L (98-107) Carbon Dioxide Level 26mmol/L (21-32) 24mmol/L (21-32) Anion Gap 7 (6-14) 10 (6-14) Blood Urea Nitrogen 26mg/dL (7-20) 23mg/dL (7-20) Creatinine 1.4mg/dL (0.6-1.0) 1.2mg/dL (0.6-1.0) Estimated GFR (Cockcroft-Gault) 37.0 44.2 BUN/Creatinine Ratio 19 (6-20) Glucose Level 113mg/dL (70-99) 101mg/dL (70-99) Calcium Level 8.2mg/dL (8.5-10.1) 8.1mg/dL (8.5-10.1) Total Bilirubin 0.5mg/dL (0.2-1.0) Aspartate Amino Transf (AST/SGOT) 13U/L (15-37) Alanine Aminotransferase (ALT/SGPT) 10U/L (14-59) Alkaline Phosphatase 47U/L (46-116) Total Protein 5.1g/dL (6.4-8.2) Albumin 1.7g/dL (3.4-5.0) Albumin/Globulin Ratio 0.5 (1.0-1.7) Magnesium Level 2.1mg/dL (1.8-2.4) Laboratory Tests Test 11/22/16 18:00 11/23/16 03:20 White Blood Count 4.3x10^3/uL (4.0-11.0) 9.7x10^3/uL (4.0-11.0) Red Blood Count 3.21x10^6/uL (3.50-5.40) 2.60x10^6/uL (3.50-5.40) Hemoglobin 10.8g/dL (12.0-15.5) 7.9g/dL (12.0-15.5) Hematocrit 30.9% (36.0-47.0) 23.5% (36.0-47.0) Mean Corpuscular Volume 96fL (79-100) 91fL (79-100) Mean Corpuscular Hemoglobin 34pg (25-35) 30pg (25-35) Mean Corpuscular Hemoglobin Concent 35g/dL (31-37) 34g/dL (31-37) Red Cell Distribution Width 14.3% (11.5-14.5) 14.2% (11.5-14.5) Platelet Count 171x10^3/uL (140-400) 153x10^3/uL (140-400) Neutrophils (%) (Auto) 75% (31-73) Lymphocytes (%) (Auto) 16% (24-48) Monocytes (%) (Auto) 6% (0-9) Eosinophils (%) (Auto) 3% (0-3) Basophils (%) (Auto) 1% (0-3) Neutrophils # (Auto) 7.2x10^3uL (1.8-7.7) Lymphocytes # (Auto) 1.6x10^3/uL (1.0-4.8) Monocytes # (Auto) 0.6x10^3/uL (0.0-1.1) Eosinophils # (Auto) 0.2x10^3/uL (0.0-0.7) Basophils # (Auto) 0.1x10^3/uL (0.0-0.2) Sodium Level 144mmol/L (136-145) Potassium Level 3.5mmol/L (3.5-5.1) Chloride Level 110mmol/L (98-107) Carbon Dioxide Level 24mmol/L (21-32) Anion Gap 10 (6-14) Blood Urea Nitrogen 23mg/dL (7-20) Creatinine 1.2mg/dL (0.6-1.0) Estimated GFR (Cockcroft-Gault) 44.2 Glucose Level 101mg/dL (70-99) Calcium Level 8.1mg/dL (8.5-10.1) Magnesium Level 2.1mg/dL (1.8-2.4) Medications Active Scripts Medications Dose Route/Sig Days Date Category Famotidine 20 Mg Tablet 10 Mg PO DAILY 06/03/16 Reported Vitamin D3 (Cholecalciferol (Vitamin D3)) 1,000 Unit Tablet 1,000 Unit PO DAILY 06/03/16 Reported Furosemide 20 Mg Tablet 20 Mg PO DAILY 06/03/16 Reported Sertraline Hcl 25 Mg Tablet 25 Mg PO DAILY 06/03/16 Reported Atenolol 50 Mg Tablet 50 Mg PO DAILY 03/01/14 Reported Olanzapine 5 Mg Tablet 5 Mg PO DAILY 03/01/14 Reported Benztropine Mesylate 2 Mg Tablet 2 Mg PO BID 03/01/14 Reported Carbidopa-Levodopa 10-100 Tab (Carbidopa/Levodopa) 1 Each Tablet 1 Each PO TID 03/01/14 Reported Comments cxr reviewed, Impression . 1. Expected Acute respiratory failure sec to surgery 2. Abnormal chest x-ray. 3. Atelectasis. 4. Vaginal bleeding, status post emergency total abdominal hysterectomy and bilateral salpingo-oophorectomy. Status post PRBC transfusion. 5. Parkinson. 6. TYRELL 7. Acute blood loss anemia Plan . OFF RESP STATYUS IS COMPENSATED 1. Titrate FiO2 to keep O2 saturation 94%. 2. extubated 11/21 3. off pressors 4. cont abx per ID 5. Elevate head of bed. 6. Pepcid for stress ulcer prophylaxis. 7. Monitor H/H 8. repeat cxr for effusion BITA DE JESUS MD Nov 23, 2016 09:22
--- NOTE | 2016-11-23 09:26 | PDOC ---
Infectious Disease Note Subjective Subjective awake, ROS ROS no n/v/d/ Vital Sign Vital Signs Vital Signs Date Time Temp Pulse Resp B/P Pulse Ox O2 Delivery O2 Flow Rate FiO2 11/23/16 07:40 Room Air 11/23/16 07:00 98.0 56 18 110/42 95 98.0 Physical Exam PHYSICAL EXAM GENERAL: NAD, Alert HEENT: PERRL, OC/OP NECK: Supple, no JVD, no LN LUNGS: Clear HEART: S1S2, no gallop, no murmur ABD: Soft, NT, no organomegaly, no rebound EXT: No edema, no cyanosis GLUE COOK: Alert, oriented x 3 SKIN: No rash IV: ok Labs Lab Laboratory Tests Test 11/22/16 18:00 11/23/16 03:20 White Blood Count 4.3x10^3/uL (4.0-11.0) 9.7x10^3/uL (4.0-11.0) Red Blood Count 3.21x10^6/uL (3.50-5.40) 2.60x10^6/uL (3.50-5.40) Hemoglobin 10.8g/dL (12.0-15.5) 7.9g/dL (12.0-15.5) Hematocrit 30.9% (36.0-47.0) 23.5% (36.0-47.0) Mean Corpuscular Volume 96fL (79-100) 91fL (79-100) Mean Corpuscular Hemoglobin 34pg (25-35) 30pg (25-35) Mean Corpuscular Hemoglobin Concent 35g/dL (31-37) 34g/dL (31-37) Red Cell Distribution Width 14.3% (11.5-14.5) 14.2% (11.5-14.5) Platelet Count 171x10^3/uL (140-400) 153x10^3/uL (140-400) Neutrophils (%) (Auto) 75% (31-73) Lymphocytes (%) (Auto) 16% (24-48) Monocytes (%) (Auto) 6% (0-9) Eosinophils (%) (Auto) 3% (0-3) Basophils (%) (Auto) 1% (0-3) Neutrophils # (Auto) 7.2x10^3uL (1.8-7.7) Lymphocytes # (Auto) 1.6x10^3/uL (1.0-4.8) Monocytes # (Auto) 0.6x10^3/uL (0.0-1.1) Eosinophils # (Auto) 0.2x10^3/uL (0.0-0.7) Basophils # (Auto) 0.1x10^3/uL (0.0-0.2) Sodium Level 144mmol/L (136-145) Potassium Level 3.5mmol/L (3.5-5.1) Chloride Level 110mmol/L (98-107) Carbon Dioxide Level 24mmol/L (21-32) Anion Gap 10 (6-14) Blood Urea Nitrogen 23mg/dL (7-20) Creatinine 1.2mg/dL (0.6-1.0) Estimated GFR (Cockcroft-Gault) 44.2 Glucose Level 101mg/dL (70-99) Calcium Level 8.1mg/dL (8.5-10.1) Magnesium Level 2.1mg/dL (1.8-2.4) Objective Assessment Fever, ? post-op, s/p PRBCs , ? UTI Leukocytosis, ? post-op, steroids Hypotension, on Levophed weaning down s/p DEMETRIUS and bilat salpingo-oophorectomy, 4/7 Post-op respiratory failure Renal insufficiency Parkinson's disease w/ tardive dyskinesia Plan Plan of Care Zosyn change to po augmentin when allowed po BC neg Monitor labs, temp Supportive care CHRISTIN LOJA MD Nov 23, 2016 09:26
--- NOTE | 2016-11-23 11:07 | PDOC ---
Renal-Progress Notes Subjective Notes Notes NONE History of Present Illness Hx of present illness NO CHANGE Vitals Vitals Vital Signs Date Time Temp Pulse Resp B/P Pulse Ox O2 Delivery O2 Flow Rate FiO2 11/23/16 11:00 97.4 61 18 113/47 96 Room Air 97.4 Weight Weight [ ] I.O. Intake and Output Intake and Output 11/23/16 06:59 Intake Total 980 ml Output Total 700 ml Balance 280 ml Intake Oral 0 ml IV Total 980 ml Output Urine Total 700 ml # Bowel Movements 2 Labs Labs Laboratory Tests Test 11/22/16 18:00 11/23/16 03:20 White Blood Count 4.3x10^3/uL (4.0-11.0) 9.7x10^3/uL (4.0-11.0) Red Blood Count 3.21x10^6/uL (3.50-5.40) 2.60x10^6/uL (3.50-5.40) Hemoglobin 10.8g/dL (12.0-15.5) 7.9g/dL (12.0-15.5) Hematocrit 30.9% (36.0-47.0) 23.5% (36.0-47.0) Mean Corpuscular Volume 96fL (79-100) 91fL (79-100) Mean Corpuscular Hemoglobin 34pg (25-35) 30pg (25-35) Mean Corpuscular Hemoglobin Concent 35g/dL (31-37) 34g/dL (31-37) Red Cell Distribution Width 14.3% (11.5-14.5) 14.2% (11.5-14.5) Platelet Count 171x10^3/uL (140-400) 153x10^3/uL (140-400) Neutrophils (%) (Auto) 75% (31-73) Lymphocytes (%) (Auto) 16% (24-48) Monocytes (%) (Auto) 6% (0-9) Eosinophils (%) (Auto) 3% (0-3) Basophils (%) (Auto) 1% (0-3) Neutrophils # (Auto) 7.2x10^3uL (1.8-7.7) Lymphocytes # (Auto) 1.6x10^3/uL (1.0-4.8) Monocytes # (Auto) 0.6x10^3/uL (0.0-1.1) Eosinophils # (Auto) 0.2x10^3/uL (0.0-0.7) Basophils # (Auto) 0.1x10^3/uL (0.0-0.2) Sodium Level 144mmol/L (136-145) Potassium Level 3.5mmol/L (3.5-5.1) Chloride Level 110mmol/L (98-107) Carbon Dioxide Level 24mmol/L (21-32) Anion Gap 10 (6-14) Blood Urea Nitrogen 23mg/dL (7-20) Creatinine 1.2mg/dL (0.6-1.0) Estimated GFR (Cockcroft-Gault) 44.2 Glucose Level 101mg/dL (70-99) Calcium Level 8.1mg/dL (8.5-10.1) Magnesium Level 2.1mg/dL (1.8-2.4) Micro Micro Microbiology 11/20/16 Blood Culture - Preliminary, Resulted NO GROWTH AFTER 3 DAYS 11/15/16 Urine Culture - Final, Complete 11/15/16 Urine Culture Result 1 (CAT) - Final, Complete Review of Systems Constitutional: yes: no symptom reported Physical Exam General Appearance: no apparent distress Skin: warm Respiratory: decreased breath sounds Heart: S1S2 Abdomen: soft Extremities: pulses present Neurology: confused Musculoskeletal: low back pain Assessment Assessment IMP SEPSIS HYPOTENSION-BETTER LEUCOCYTOSIS ENCEPHALOPATHY TYRELL WITH CR DOWN TO 1.2 HYPERNATREMIA-BETTER PLAN CONT ANTIBIOTICS CONT WITH PPN FOR NOW WILL FOLLOW JUAN HAM MD Nov 23, 2016 11:07
--- NOTE | 2016-11-23 11:52 | PDOC ---
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 POD#4 s/p hysterectomy. No acute events overnight. Patient resting comfortably; appears to be in no acute distress. Communication limited secondary to patient is a poor historian. d/w nurse about plan of care. Vitals Vitals Vital Signs Date Time Temp Pulse Resp B/P Pulse Ox O2 Delivery O2 Flow Rate FiO2 11/23/16 11:00 97.4 61 18 113/47 96 Room Air 97.4 Physical Exam General: Alert, Cooperative, No acute distress Heart: Regular rate, Normal S1, No murmurs Lungs: Clear, Other (negative accessory muscle use. ) Abdomen: Normal bowel sounds, Soft, Other (pelvic incision covered with gauze) Extremities: No clubbing, No edema Skin: No rashes, Other (incision dressing clean, dry, and intact without surrounding erythema or overt drainage. ) Labs LABS Laboratory Tests Test 11/22/16 18:00 11/23/16 03:20 White Blood Count 4.3x10^3/uL (4.0-11.0) 9.7x10^3/uL (4.0-11.0) Red Blood Count 3.21x10^6/uL (3.50-5.40) 2.60x10^6/uL (3.50-5.40) Hemoglobin 10.8g/dL (12.0-15.5) 7.9g/dL (12.0-15.5) Hematocrit 30.9% (36.0-47.0) 23.5% (36.0-47.0) Mean Corpuscular Volume 96fL (79-100) 91fL (79-100) Mean Corpuscular Hemoglobin 34pg (25-35) 30pg (25-35) Mean Corpuscular Hemoglobin Concent 35g/dL (31-37) 34g/dL (31-37) Red Cell Distribution Width 14.3% (11.5-14.5) 14.2% (11.5-14.5) Platelet Count 171x10^3/uL (140-400) 153x10^3/uL (140-400) Neutrophils (%) (Auto) 75% (31-73) Lymphocytes (%) (Auto) 16% (24-48) Monocytes (%) (Auto) 6% (0-9) Eosinophils (%) (Auto) 3% (0-3) Basophils (%) (Auto) 1% (0-3) Neutrophils # (Auto) 7.2x10^3uL (1.8-7.7) Lymphocytes # (Auto) 1.6x10^3/uL (1.0-4.8) Monocytes # (Auto) 0.6x10^3/uL (0.0-1.1) Eosinophils # (Auto) 0.2x10^3/uL (0.0-0.7) Basophils # (Auto) 0.1x10^3/uL (0.0-0.2) Sodium Level 144mmol/L (136-145) Potassium Level 3.5mmol/L (3.5-5.1) Chloride Level 110mmol/L (98-107) Carbon Dioxide Level 24mmol/L (21-32) Anion Gap 10 (6-14) Blood Urea Nitrogen 23mg/dL (7-20) Creatinine 1.2mg/dL (0.6-1.0) Estimated GFR (Cockcroft-Gault) 44.2 Glucose Level 101mg/dL (70-99) Calcium Level 8.1mg/dL (8.5-10.1) Magnesium Level 2.1mg/dL (1.8-2.4) Review of Systems Review of Systems (+) discomfort around incision site (+) tremor (+) contractures ROS limited secondary to mental status. 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 Labs Laboratory Tests Test 11/21/16 15:40 11/22/16 08:30 11/22/16 18:00 11/23/16 03:20 O2 Saturation 98% (92-99) Arterial Blood pH 7.48 (7.35-7.45) Arterial Blood pCO2 at Patient Temp 28mmHg (35-46) Arterial Blood pO2 at Patient Temp 168mmHg (65-108) Arterial Blood HCO3 20mmol/L (21-28) Arterial Blood Base Excess -2mmol/L (-3-3) FiO2 40 White Blood Count 12.0x10^3/uL (4.0-11.0) 4.3x10^3/uL (4.0-11.0) 9.7x10^3/uL (4.0-11.0) Red Blood Count 2.66x10^6/uL (3.50-5.40) 3.21x10^6/uL (3.50-5.40) 2.60x10^6/uL (3.50-5.40) Hemoglobin 8.0g/dL (12.0-15.5) 10.8g/dL (12.0-15.5) 7.9g/dL (12.0-15.5) Hematocrit 24.1% (36.0-47.0) 30.9% (36.0-47.0) 23.5% (36.0-47.0) Mean Corpuscular Volume 91fL (79-100) 96fL (79-100) 91fL (79-100) Mean Corpuscular Hemoglobin 30pg (25-35) 34pg (25-35) 30pg (25-35) Mean Corpuscular Hemoglobin Concent 33g/dL (31-37) 35g/dL (31-37) 34g/dL (31-37) Red Cell Distribution Width 14.5% (11.5-14.5) 14.3% (11.5-14.5) 14.2% (11.5-14.5) Platelet Count 140x10^3/uL (140-400) 171x10^3/uL (140-400) 153x10^3/uL (140-400) Neutrophils (%) (Auto) 81% (31-73) 75% (31-73) Lymphocytes (%) (Auto) 12% (24-48) 16% (24-48) Monocytes (%) (Auto) 5% (0-9) 6% (0-9) Eosinophils (%) (Auto) 1% (0-3) 3% (0-3) Basophils (%) (Auto) 0% (0-3) 1% (0-3) Neutrophils # (Auto) 9.7x10^3uL (1.8-7.7) 7.2x10^3uL (1.8-7.7) Lymphocytes # (Auto) 1.5x10^3/uL (1.0-4.8) 1.6x10^3/uL (1.0-4.8) Monocytes # (Auto) 0.6x10^3/uL (0.0-1.1) 0.6x10^3/uL (0.0-1.1) Eosinophils # (Auto) 0.1x10^3/uL (0.0-0.7) 0.2x10^3/uL (0.0-0.7) Basophils # (Auto) 0.0x10^3/uL (0.0-0.2) 0.1x10^3/uL (0.0-0.2) Sodium Level 144mmol/L (136-145) 144mmol/L (136-145) Potassium Level 3.4mmol/L (3.5-5.1) 3.5mmol/L (3.5-5.1) Chloride Level 111mmol/L (98-107) 110mmol/L (98-107) Carbon Dioxide Level 26mmol/L (21-32) 24mmol/L (21-32) Anion Gap 7 (6-14) 10 (6-14) Blood Urea Nitrogen 26mg/dL (7-20) 23mg/dL (7-20) Creatinine 1.4mg/dL (0.6-1.0) 1.2mg/dL (0.6-1.0) Estimated GFR (Cockcroft-Gault) 37.0 44.2 BUN/Creatinine Ratio 19 (6-20) Glucose Level 113mg/dL (70-99) 101mg/dL (70-99) Calcium Level 8.2mg/dL (8.5-10.1) 8.1mg/dL (8.5-10.1) Total Bilirubin 0.5mg/dL (0.2-1.0) Aspartate Amino Transf (AST/SGOT) 13U/L (15-37) Alanine Aminotransferase (ALT/SGPT) 10U/L (14-59) Alkaline Phosphatase 47U/L (46-116) Total Protein 5.1g/dL (6.4-8.2) Albumin 1.7g/dL (3.4-5.0) Albumin/Globulin Ratio 0.5 (1.0-1.7) Magnesium Level 2.1mg/dL (1.8-2.4) Laboratory Tests Test 11/22/16 18:00 11/23/16 03:20 White Blood Count 4.3x10^3/uL (4.0-11.0) 9.7x10^3/uL (4.0-11.0) Red Blood Count 3.21x10^6/uL (3.50-5.40) 2.60x10^6/uL (3.50-5.40) Hemoglobin 10.8g/dL (12.0-15.5) 7.9g/dL (12.0-15.5) Hematocrit 30.9% (36.0-47.0) 23.5% (36.0-47.0) Mean Corpuscular Volume 96fL (79-100) 91fL (79-100) Mean Corpuscular Hemoglobin 34pg (25-35) 30pg (25-35) Mean Corpuscular Hemoglobin Concent 35g/dL (31-37) 34g/dL (31-37) Red Cell Distribution Width 14.3% (11.5-14.5) 14.2% (11.5-14.5) Platelet Count 171x10^3/uL (140-400) 153x10^3/uL (140-400) Neutrophils (%) (Auto) 75% (31-73) Lymphocytes (%) (Auto) 16% (24-48) Monocytes (%) (Auto) 6% (0-9) Eosinophils (%) (Auto) 3% (0-3) Basophils (%) (Auto) 1% (0-3) Neutrophils # (Auto) 7.2x10^3uL (1.8-7.7) Lymphocytes # (Auto) 1.6x10^3/uL (1.0-4.8) Monocytes # (Auto) 0.6x10^3/uL (0.0-1.1) Eosinophils # (Auto) 0.2x10^3/uL (0.0-0.7) Basophils # (Auto) 0.1x10^3/uL (0.0-0.2) Sodium Level 144mmol/L (136-145) Potassium Level 3.5mmol/L (3.5-5.1) Chloride Level 110mmol/L (98-107) Carbon Dioxide Level 24mmol/L (21-32) Anion Gap 10 (6-14) Blood Urea Nitrogen 23mg/dL (7-20) Creatinine 1.2mg/dL (0.6-1.0) Estimated GFR (Cockcroft-Gault) 44.2 Glucose Level 101mg/dL (70-99) Calcium Level 8.1mg/dL (8.5-10.1) Magnesium Level 2.1mg/dL (1.8-2.4) Microbiology 11/20/16 Blood Culture - Preliminary, Resulted NO GROWTH AFTER 3 DAYS 11/15/16 Urine Culture - Final, Complete 11/15/16 Urine Culture Result 1 (CAT) - Final, Complete Medications Current Medications Sodium Chloride (Iv Sodium Chloride 0.9% 500ml Bag) 500 ml @ 500 mls/hr 1X ONCE IV Last administered on 11/15/16t 21:30; Start 11/15/16 at 21:30; Stop at 22:29; Status DC Ondansetron HCl (Zofran) 4 mg PRN Q8HRS PRN IV NAUSEA/VOMITING; Start 11/15/16 at 23:45; Stop 11/16/16 at 23:44; Status DC Morphine Sulfate 2 mg PRN Q2HR PRN IV SEVERE PAIN; Start 11/15/16 at 23:45; Stop 11/16/16 at 23:44; Status DC Acetaminophen 650 mg 650 mg PRN Q4HRS PRN PO FEVER; Start 11/15/16 at 23:45; Stop 11/16/16 at 23:44; Status DC Ceftriaxone Sodium (Rocephin 1gm Ivpb For Omni) 50 ml @ 100 mls/hr 1X ONCE IV Last administered on 11/16/16 03:08; Start 11/16/16 at 01:00; Stop 11/16/16 at 01:29; Status DC Atenolol (Tenormin) 50 mg DAILY PO Last administered on 11/19/16 09:30; Start 11/16/16 at 09:30; Stop 11/20/16 at 08:36; Status DC Carbidopa/Levodopa (Sinemet 10/100) 1 tab TID PO Last administered on 11/21/16 13:46; Start 11/16/16 at 09:30 Vitamin D (Vitamin D3) 1,000 unit DAILY PO Last administered on 11/21/16 08:23 ; Start 11/16/16 at 09:30 Famotidine (Pepcid) 10 mg DAILY PO Last administered on 11/18/16 08:21; Start 11/16/16 at 09:30; Stop 11/20/16 at 07:28; Status DC Furosemide (Lasix) 20 mg DAILY PO Last administered on 11/21/16 08:23; Start at 09:30 Olanzapine (Zyprexa) 5 mg DAILY PO Last administered on 11/21/16 08:23; Start 11/16/16 at 09:30 Sertraline HCl (Zoloft) 25 mg DAILY PO Last administered on 11/21/16 08:23; Start 11/16/16 at 09:30 Benztropine Mesylate 2 mg 2 mg BID PO Last administered on 11/21/16 08:23; Start 11/16/16 at 09:30 Ceftriaxone Sodium 1 gm/ Sodium Chloride 50 ml @ 100 mls/hr Q24H IV Last administered on 11/19/16 21:43; Start 11/16/16 at 21:00; Stop 11/20/16 at 10:05; Status DC Sodium Chloride (Iv Sodium Chloride 0.9% 1000ml Bag) 1,000 ml @ 100 mls/hr 1X ONCE IV Last administered on 11/17/16 12:52; Start 11/17/16 at 13:00; Stop at 22:59; Status DC Ondansetron HCl (Zofran) 4 mg PRN Q6HRS PRN IV Nausea, 1st Choice; Start at 13:45; Stop 11/17/16 at 13:50; Status DC Fentanyl Citrate (Fentanyl 2ml Vial) 25 mcg PRN Q5MIN PRN IV Acute Pain; Start 11/17/16 at 13:45; Stop 11/18/16 at 13:44; Status DC Fentanyl Citrate (Fentanyl 2ml Vial) 50 mcg PRN Q5MIN PRN IV Acute Pain; Start 11/17/16 at 13:45; Stop 11/18/16 at 13:44; Status DC Morphine Sulfate 1 mg PRN Q10MIN PRN IV Mild Pain; Start 11/17/16 at 13:45; Stop 11/18/16 at 13:44; Status DC Morphine Sulfate 2 mg 2 mg PRN Q10MIN PRN IV Moderate Pain; Start 11/17/16 at 13 :45; Stop 11/18/16 at 13:44; Status DC Lactated Ringer's (Iv Lactated Ringers) 1,000 ml @ 50 mls/hr Q20H IV Last administered on 11/17/16 14:15; Start 11/17/16 at 13:34; Stop 11/18/16 at 01:33; Status DC Ondansetron HCl (Zofran) 4 mg PRN Q6HRS PRN IV Nausea, 1st Choice; Start at 13:50; Stop 11/18/16 at 13:44; Status DC Fentanyl Citrate (Fentanyl 2ml Vial) 100 mcg STK-MED ONCE .ROUTE ; Start at 14:36; Stop 11/17/16 at 14:37; Status DC Dexamethasone Sodium Phosphate (Decadron) 20 mg STK-MED ONCE .ROUTE ; Start 11/17 at 14:36; Stop 11/17/16 at 14:37; Status DC Ondansetron HCl 4 mg 4 mg STK-MED ONCE .ROUTE ; Start 11/17/16 at 14:36; Stop 11/17/16 at 14:37; Status DC Propofol (Diprivan) 20 ml @ As Directed STK-MED ONCE IV ; Start 11/17/16 at 14:36 ; Stop 11/17/16 at 14:37; Status DC Lidocaine HCl (Lidocaine HCl 2% Abboject) 100 mg STK-MED ONCE .ROUTE ; Start 11/17/16 at 14:36; Stop 11/17/16 at 14:37; Status DC Phenylephrine HCl 1 mg STK-MED ONCE IV ; Start 11/17/16 at 15:00; Stop 11/17/16 at 15:01; Status DC Sevoflurane (Ultane) 30 ml STK-MED ONCE IH ; Start 11/17/16 at 15:30; Stop at 15:31; Status DC Ondansetron HCl (Zofran) 4 mg PRN Q6HRS PRN IV NAUSEA/VOMITING; Start 11/19/16 at 07:00; Stop 11/20/16 at 06:59; Status DC Fentanyl Citrate (Fentanyl 2ml Vial) 25 mcg PRN Q5MIN PRN IV MILD PAIN; Start 11/19/16 at 07:00; Stop 11/20/16 at 06:59; Status DC Fentanyl Citrate (Fentanyl 2ml Vial) 50 mcg PRN Q5MIN PRN IV MODERATE PAIN Last administered on 11/19/16 19:39; Start 11/19/16 at 07:00; Stop 11/20/16 at 06: 59; Status DC Morphine Sulfate 1 mg 1 mg PRN Q10MIN PRN IV SEVERE PAIN; Start 11/19/16 at 06: 45; Stop 11/20/16 at 06:44; Status DC Lactated Ringer's (Iv Lactated Ringers) 1,000 ml @ 0 mls/hr Q0M IV Last administered on 11/19/16 12:56; Start 11/19/16 at 07:00; Stop 11/19/16 at 13:00; Status DC Lidocaine HCl 2 ml PRN 1X PRN ID PRIOR TO IV START; Start 11/19/16 at 07:00; Stop 11/20/16 at 06:59; Status DC Hydromorphone HCl (Dilaudid) 0.5 mg PRN Q10MIN PRN IV SEV PAIN, Second choice; Start 11/19/16 at 06:45; Stop 11/20/16 at 06:44; Status DC Prochlorperazine Edisylate (Compazine) 5 mg PACU PRN PRN IV NAUSEA, MRX1; Start 11/19/16 at 06:45; Stop 11/20/16 at 06:44; Status DC Benztropine Mesylate (Cogentin) 2 mg STK-MED ONCE .ROUTE ; Start 11/16/16 at 09: 00; Stop 11/19/16 at 11:52; Status DC Benztropine Mesylate (Cogentin) 2 mg STK-MED ONCE .ROUTE ; Start 11/16/16 at 09: 00; Stop 11/19/16 at 11:52; Status DC Benztropine Mesylate (Cogentin) 2 mg STK-MED ONCE .ROUTE ; Start 11/17/16 at 09: 00; Stop 11/19/16 at 11:52; Status DC Benztropine Mesylate (Cogentin) 2 mg STK-MED ONCE .ROUTE ; Start 11/18/16 at 09: 00; Stop 11/19/16 at 11:53; Status DC Benztropine Mesylate 2 mg 2 mg STK-MED ONCE .ROUTE ; Start 11/19/16 at 01:00; Stop 11/19/16 at 11:53; Status DC Cefazolin Sodium/ Dextrose 50 ml @ 100 mls/hr 1X PREOP IV Last administered on 11/19/16 14:57; Start 11/19/16 at 13:00; Stop 11/20/16 at 18:00; Status DC Cefazolin Sodium/ Dextrose 50 ml @ As Directed STK-MED ONCE IV ; Start 11/19/16 at 13:03; Stop 11/19/16 at 13:04; Status DC Amino Acids/ Glycerin/ Electrolytes (Procalamine) 1,000 ml @ 80 mls/hr [id number] IV Last administered on 11/23/16 03:10; Start 11/19/16 at 14:00 Rocuronium [place] (Zemuron) 50 mg STK-MED ONCE .ROUTE ; Start 11/19/16 at 13:35 ; Stop 11/19/16 at 13:36; Status DC Desflurane 60 ml 60 ml STK-MED ONCE IH ; Start 11/19/16 at 13:35; Stop 11/19/16 at 13:36; Status DC Propofol (Diprivan) 20 ml @ As Directed STK-MED ONCE IV ; Start 11/19/16 at 13:35 ; Stop 11/19/16 at 13:36; Status DC Dexamethasone Sodium Phosphate (Decadron) 20 mg STK-MED ONCE .ROUTE ; Start 11/19 at 13:35; Stop 11/19/16 at 13:36; Status DC Ondansetron HCl (Zofran) 4 mg STK-MED ONCE .ROUTE ; Start 11/19/16 at 13:35; Stop 11/19/16 at 13:36; Status DC Lidocaine HCl (Lidocaine HCl 2% Abboject) 100 mg STK-MED ONCE .ROUTE ; Start 11/19/16 at 13:35; Stop 11/19/16 at 13:36; Status DC Phenylephrine HCl 1 mg STK-MED ONCE IV ; Start 11/19/16 at 13:37; Stop 11/19/16 at 13:38; Status DC Fentanyl Citrate (Fentanyl 2ml Vial) 100 mcg STK-MED ONCE .ROUTE ; Start at 13:59; Stop 11/19/16 at 14:00; Status DC Rocuronium [place] (Zemuron) 50 mg STK-MED ONCE .ROUTE ; Start 11/19/16 at 14:26 ; Stop 11/19/16 at 14:27; Status DC Ondansetron HCl (Zofran) 4 mg STK-MED ONCE .ROUTE ; Start 11/19/16 at 14:44; Stop 11/19/16 at 14:45; Status DC Glycopyrrolate (Robinul) 1 mg STK-MED ONCE .ROUTE ; Start 11/19/16 at 14:44; Stop 11/19/16 at 14:45; Status DC Neostigmine Methylsulfate 5 mg STK-MED ONCE .ROUTE ; Start 11/19/16 at 14:44; Stop 11/19/16 at 14:45; Status DC Desflurane (Suprane) 60 ml STK-MED ONCE IH ; Start 11/19/16 at 14:58; Stop at 14:59; Status DC Ephedrine Sulfate 50 mg STK-MED ONCE IV ; Start 11/19/16 at 15:05; Stop 11/19/16 at 15:06; Status DC Methylene Blue (Methylene Blue) 1 ml STK-MED ONCE .ROUTE ; Start 11/19/16 at 15: 11; Stop 11/19/16 at 15:12; Status DC Phenylephrine HCl 1 mg STK-MED ONCE IV ; Start 11/19/16 at 15:25; Stop 11/19/16 at 15:26; Status DC Vasopressin (Vasostrict) 20 unit STK-MED ONCE .ROUTE ; Start 11/19/16 at 15:54; Stop 11/19/16 at 15:55; Status DC Epinephrine HCl 1 mg 1 mg STK-MED ONCE .ROUTE ; Start 11/19/16 at 15:56; Stop 11/19/16 at 15:57; Status DC Sodium Chloride 1,000 ml @ 125 mls/hr 1X ONCE IV Last administered on 21:42; Start 11/19/16 at 19:30; Stop 11/20/16 at 03:29; Status DC Propofol 100 ml @ 0 mls/hr CONT PRN IV SEE I/O RECORD Last administered on 00:00; Start 11/19/16 at 20:00; Stop 11/22/16 at 07:35; Status DC Norepinephrine Bitartrate 8 mg/ Sodium Chloride 258 ml @ 0 mls/hr CONT PRN IV SEE I/O RECORD Last administered on 11/19/16 21:44; Start 11/19/16 at 21:30 Sodium Chloride (Iv Sodium Chloride 0.9% 1000ml Bag) 1,000 ml @ 125 mls/hr Q8H IV Last administered on 11/20/16 10:15; Start 11/20/16 at 10:00; Stop 11/20/16 at 14:49; Status DC Famotidine 20 mg 20 mg QHS IVP Last administered on 11/22/16 21:35; Start 11/20 at 21:00 Piperacillin Sod/ Tazobactam Sod 3.375 gm/Sodium Chloride 50 ml @ 100 mls/hr Q6HRS IV Last administered on 11/23/16 06:02; Start 11/20/16 at 11:00 Sodium Chloride (Iv Sodium Chloride 0.45%) 1,000 ml @ 125 mls/hr 1X ONCE IV Last administered on 11/20/16 15:08; Start 11/20/16 at 14:45; Stop 11/20/16 at 22: 44; Status DC Sodium Bicarbonate 50 meq 1X ONCE IV Last administered on 11/20/16 15:03; Start 11/20/16 at 14:45; Stop 11/20/16 at 14:51; Status DC Chlorhexidine Gluconate (Peridex) 15 ml BID MM Last administered on 11/21/16 08 :39; Start 11/21/16 at 09:00; Stop 11/22/16 at 07:34; Status DC Acetaminophen 650 mg 650 mg PRN Q6HRS PRN TN MILD PAIN / TEMP Last administered on 11/21/16 21:16; Start 11/21/16 at 21:00 Potassium Chloride 50 ml @ 50 mls/hr 1X ONCE IV ; Start 11/22/16 at 11:15; Stop 11/22/16 at 11:16; Status DC Potassium Chloride (KCl Premix 10meq) 100 ml @ 100 mls/hr Q1H IV Last administered on 11/22/16 13:00; Start 11/22/16 at 12:00; Stop 11/22/16 at 13:59 ; Status DC Active Scripts Active Reported Famotidine 20 Mg Tablet 10 Mg PO DAILY Vitamin D3 (Cholecalciferol (Vitamin D3)) 1,000 Unit Tablet 1,000 Unit PO DAILY Furosemide 20 Mg Tablet 20 Mg PO DAILY Sertraline Hcl 25 Mg Tablet 25 Mg PO DAILY Atenolol 50 Mg Tablet 50 Mg PO DAILY Olanzapine 5 Mg Tablet 5 Mg PO DAILY Benztropine Mesylate 2 Mg Tablet 2 Mg PO BID Carbidopa-Levodopa 10-100 Tab (Carbidopa/Levodopa) 1 Each Tablet 1 Each PO TID Vitals/I & O Vital Sign - Last 24 Hours 11/22/16 11/22/16 11/22/16 11/22/16 11:55 16:00 20:00 20:24 Temp 99.0 97.7 99.1 99.0 97.7 99.1 Pulse 85 64 55 Resp 16 18 18 B/P 106/49 114/51 121/43 Pulse Ox 96 93 95 O2 Delivery Room Air Room Air Room Air Room Air 11/23/16 11/23/16 11/23/16 11/23/16 00:01 03:49 07:00 07:40 Temp 98.2 97.9 98.0 98.2 97.9 98.0 Pulse 58 57 56 Resp 18 18 18 B/P 140/45 128/51 110/42 Pulse Ox 98 96 95 O2 Delivery Room Air Room Air Room Air Room Air 11/23/16 11:00 Temp 97.4 97.4 Pulse 61 Resp 18 B/P 113/47 Pulse Ox 96 O2 Delivery Room Air Intake and Output 11/22/16 11/22/16 11/23/16 15:00 23:00 07:00 Intake Total 0 ml 980 ml Output Total 350 ml 350 ml Balance -350 ml 0 ml 630 ml HEBER GARDNER III DO Nov 23, 2016 11:52
--- NOTE | 2016-11-23 14:29 | PDOC ---
Subjective: Subjective: Denies pain. Objective: Objective: Per RN - had diarrhea x 1, otherwise no GI concerns. Vital Signs: Vital Signs Date Time Temp Pulse Resp B/P Pulse Ox O2 Delivery O2 Flow Rate FiO2 11/23/16 11:00 97.4 61 18 113/47 96 Room Air 97.4 Labs: Laboratory Tests Test 11/22/16 18:00 11/23/16 03:20 White Blood Count 4.3x10^3/uL 9.7x10^3/uL Red Blood Count 3.21x10^6/uL 2.60x10^6/uL Hemoglobin 10.8g/dL 7.9g/dL Hematocrit 30.9% 23.5% Mean Corpuscular Volume 96fL 91fL Mean Corpuscular Hemoglobin 34pg 30pg Mean Corpuscular Hemoglobin Concent 35g/dL 34g/dL Red Cell Distribution Width 14.3% 14.2% Platelet Count 171x10^3/uL 153x10^3/uL Neutrophils (%) (Auto) 75% Lymphocytes (%) (Auto) 16% Monocytes (%) (Auto) 6% Eosinophils (%) (Auto) 3% Basophils (%) (Auto) 1% Neutrophils # (Auto) 7.2x10^3uL Lymphocytes # (Auto) 1.6x10^3/uL Monocytes # (Auto) 0.6x10^3/uL Eosinophils # (Auto) 0.2x10^3/uL Basophils # (Auto) 0.1x10^3/uL Sodium Level 144mmol/L Potassium Level 3.5mmol/L Chloride Level 110mmol/L Carbon Dioxide Level 24mmol/L Anion Gap 10 Blood Urea Nitrogen 23mg/dL Creatinine 1.2mg/dL Estimated GFR (Cockcroft-Gault) 44.2 Glucose Level 101mg/dL Calcium Level 8.1mg/dL Magnesium Level 2.1mg/dL PE: GEN: NAD LUNGS: CTAB HEART: RRR ABD: S/ND/NT NEURO/PSYCH: A & O 3 A/P: Vaginal bleed s/p hysterectomy -post-op resp failure, s/p extubation, passed [employer] eval for dysphagia diet Anemia -heme positive stool noted last week, no overt GI bleeding, some drift in Hgb ( 10.8 to 7.9 today, BUN decreasing) -on H2 kadie -- Follow Hgb. GRACIE DUDLEY Nov 23, 2016 14:29
[2016-11-23] MEDS: FAMOTIDINE 20 MG/2 ML VIAL IVP SCH (21:43)
[2016-11-24 03:00] VITALS: BP 135/62
[2016-11-24 05:16] LABS: CALCIUM 8.1 mg/dL (8.5-10.1); CREATININE 1.1 mg/dL (0.6-1.0); GFR 48.8; MAGNESIUM 2.6 mg/dL (1.8-2.4); POTASSIUM 3.5 mmol/L (3.5-5.1)
[2016-11-24] MEDS: PIPERACILLIN/TAZOBACTAM 3.375 GM in IV NORMAL SALINE 50ML 50 ML IV SCH (06:00)
[2016-11-24] MEDS: AA 3%/ELECTROLYTE-TPN SOLN/GLY 1,000 ML IV SCH (06:30)
[2016-11-24 06:33] LABS: BASO # 0.1 x10^3/uL (0.0-0.2); BASO % 1 % (0-3); EOS % 3 % (0-3); HEMATOCRIT 22.9 % (36.0-47.0); HEMOGLOBIN 7.8 g/dL (12.0-15.5); LYMPH # 1.6 x10^3/uL (1.0-4.8); LYMPH % 17 % (24-48); MEAN CORPUSCULAR HEMOGLOBIN 31 pg (25-35); MEAN CORPUSCULAR HGB CONC 34 g/dL (31-37); MEAN CORPUSCULAR VOLUME 90 fL (79-100); MONO % 7 % (0-9); NEUT % 71 % (31-73); PLATELET COUNT 195 x10^3/uL (140-400); RED BLOOD COUNT 2.53 x10^6/uL (3.50-5.40); RED CELL DISTRIBUTION WIDTH 14.1 % (11.5-14.5); WHITE BLOOD COUNT 9.2 x10^3/uL (4.0-11.0)
[2016-11-24 07:00] VITALS: BP 141/62
[2016-11-24] MEDS: SERTRALINE 25 MG TABLET. PO SCH (09:00)
[2016-11-24] MEDS: CARBIDOPA/LEVODOPA 10/100MG TABLET PO SCH ×2 (09:00→14:16)
[2016-11-24] MEDS: FUROSEMIDE 20 MG TABLET PO SCH (09:00)
[2016-11-24] MEDS ORDERED: AMOXICILLIN/K CLAV 875/125MG TABLET. PO SCH (09:00)
[2016-11-24] MEDS: BENZTROPINE MESYLATE 1 MG TABLET. PO SCH (09:00)
[2016-11-24] MEDS: CHOLECALCIFEROL (VITAMIN D3) 1,000 UNIT TABLET PO SCH (09:00)
[2016-11-24] MEDS: OLANZAPINE 5 MG TABLET. PO SCH (09:00)
--- NOTE | 2016-11-24 09:16 | PDOC ---
Infectious Disease Note Subjective Subjective awake, ROS ROS no n/v/d/pain Vital Sign Vital Signs Vital Signs Date Time Temp Pulse Resp B/P Pulse Ox O2 Delivery O2 Flow Rate FiO2 11/24/16 07:00 97.4 61 16 141/62 96 Room Air 97.4 Physical Exam PHYSICAL EXAM GENERAL: NAD, Alert HEENT: PERRL, OC/OP NECK: Supple, no JVD, no LN LUNGS: Clear HEART: S1S2, no gallop, no murmur ABD: Soft, NT, no organomegaly, no rebound EXT: No edema, no cyanosis HOME HEALTH MANAGER: Alert, answers some SKIN: No rash IV: ok Labs Lab Laboratory Tests Test 11/24/16 03:40 White Blood Count 9.2x10^3/uL (4.0-11.0) Red Blood Count 2.53x10^6/uL (3.50-5.40) Hemoglobin 7.8g/dL (12.0-15.5) Hematocrit 22.9% (36.0-47.0) Mean Corpuscular Volume 90fL (79-100) Mean Corpuscular Hemoglobin 31pg (25-35) Mean Corpuscular Hemoglobin Concent 34g/dL (31-37) Red Cell Distribution Width 14.1% (11.5-14.5) Platelet Count 195x10^3/uL (140-400) Neutrophils (%) (Auto) 71% (31-73) Lymphocytes (%) (Auto) 17% (24-48) Monocytes (%) (Auto) 7% (0-9) Eosinophils (%) (Auto) 3% (0-3) Basophils (%) (Auto) 1% (0-3) Neutrophils # (Auto) 6.6x10^3uL (1.8-7.7) Lymphocytes # (Auto) 1.6x10^3/uL (1.0-4.8) Monocytes # (Auto) 0.7x10^3/uL (0.0-1.1) Eosinophils # (Auto) 0.3x10^3/uL (0.0-0.7) Basophils # (Auto) 0.1x10^3/uL (0.0-0.2) Sodium Level 142mmol/L (136-145) Potassium Level 3.5mmol/L (3.5-5.1) Chloride Level 110mmol/L (98-107) Carbon Dioxide Level 23mmol/L (21-32) Anion Gap 9 (6-14) Blood Urea Nitrogen 19mg/dL (7-20) Creatinine 1.1mg/dL (0.6-1.0) Estimated GFR (Cockcroft-Gault) 48.8 Glucose Level 96mg/dL (70-99) Calcium Level 8.1mg/dL (8.5-10.1) Magnesium Level 2.6mg/dL (1.8-2.4) Objective Assessment Fever, ? post-op, s/p PRBCs , ? UTI Leukocytosis, ? post-op, steroids Hypotension, on Levophed weaning down s/p DEMETRIUS and bilat salpingo-oophorectomy, 4/7 Post-op respiratory failure Renal insufficiency Parkinson's disease w/ tardive dyskinesia Plan Plan of Care po augmentin for 5 more days d/c to [facility] Supportive care CHRISTIN LOJA MD Nov 24, 2016 09:16
--- NOTE | 2016-11-24 10:59 | PDOC ---
Subjective: Subjective: Says not well because she's "fading." Objective: Objective: Per RN - no bleeding, declined food and pills today. Vital Signs: Vital Signs Date Time Temp Pulse Resp B/P Pulse Ox O2 Delivery O2 Flow Rate FiO2 11/24/16 07:20 Room Air 11/24/16 07:00 97.4 61 16 141/62 96 97.4 Labs: Laboratory Tests Test 11/24/16 03:40 White Blood Count 9.2x10^3/uL Red Blood Count 2.53x10^6/uL Hemoglobin 7.8g/dL Hematocrit 22.9% Mean Corpuscular Volume 90fL Mean Corpuscular Hemoglobin 31pg Mean Corpuscular Hemoglobin Concent 34g/dL Red Cell Distribution Width 14.1% Platelet Count 195x10^3/uL Neutrophils (%) (Auto) 71% Lymphocytes (%) (Auto) 17% Monocytes (%) (Auto) 7% Eosinophils (%) (Auto) 3% Basophils (%) (Auto) 1% Neutrophils # (Auto) 6.6x10^3uL Lymphocytes # (Auto) 1.6x10^3/uL Monocytes # (Auto) 0.7x10^3/uL Eosinophils # (Auto) 0.3x10^3/uL Basophils # (Auto) 0.1x10^3/uL Sodium Level 142mmol/L Potassium Level 3.5mmol/L Chloride Level 110mmol/L Carbon Dioxide Level 23mmol/L Anion Gap 9 Blood Urea Nitrogen 19mg/dL Creatinine 1.1mg/dL Estimated GFR (Cockcroft-Gault) 48.8 Glucose Level 96mg/dL Calcium Level 8.1mg/dL Magnesium Level 2.6mg/dL PE: GEN: NAD LUNGS: CTAB HEART: RRR ABD: S/ND/NT NEURO/PSYCH: A & O 3, ?depressed A/P: Vaginal bleed s/p hysterectomy -post-op resp failure, s/p extubation, passed BUS ESCORT eval for dysphagia diet Decreased appetite -refused food/meds today Anemia -heme positive stool noted last week, no overt GI bleeding, Hgb stable today in 7s, (normal BUN) -- Follow Hgb, appetite. GRACIE DUDLEY Nov 24, 2016 10:59
[2016-11-24 11:00] VITALS: BP 144/58
--- NOTE | 2016-11-24 11:38 | PDOC ---
Renal-Progress Notes Subjective Notes Notes NOT EATING History of Present Illness Hx of present illness NO CHANGE Vitals Vitals Vital Signs Date Time Temp Pulse Resp B/P Pulse Ox O2 Delivery O2 Flow Rate FiO2 11/24/16 07:20 Room Air 11/24/16 07:00 97.4 61 16 141/62 96 97.4 Weight Weight [ ] I.O. Intake and Output Intake and Output 11/24/16 07:00 Intake Total 960 ml Output Total 2200 ml Balance -1240 ml IV Total 960 ml Output Urine Total 2200 ml # Bowel Movements 1 Labs Labs Laboratory Tests Test 11/24/16 03:40 White Blood Count 9.2x10^3/uL (4.0-11.0) Red Blood Count 2.53x10^6/uL (3.50-5.40) Hemoglobin 7.8g/dL (12.0-15.5) Hematocrit 22.9% (36.0-47.0) Mean Corpuscular Volume 90fL (79-100) Mean Corpuscular Hemoglobin 31pg (25-35) Mean Corpuscular Hemoglobin Concent 34g/dL (31-37) Red Cell Distribution Width 14.1% (11.5-14.5) Platelet Count 195x10^3/uL (140-400) Neutrophils (%) (Auto) 71% (31-73) Lymphocytes (%) (Auto) 17% (24-48) Monocytes (%) (Auto) 7% (0-9) Eosinophils (%) (Auto) 3% (0-3) Basophils (%) (Auto) 1% (0-3) Neutrophils # (Auto) 6.6x10^3uL (1.8-7.7) Lymphocytes # (Auto) 1.6x10^3/uL (1.0-4.8) Monocytes # (Auto) 0.7x10^3/uL (0.0-1.1) Eosinophils # (Auto) 0.3x10^3/uL (0.0-0.7) Basophils # (Auto) 0.1x10^3/uL (0.0-0.2) Sodium Level 142mmol/L (136-145) Potassium Level 3.5mmol/L (3.5-5.1) Chloride Level 110mmol/L (98-107) Carbon Dioxide Level 23mmol/L (21-32) Anion Gap 9 (6-14) Blood Urea Nitrogen 19mg/dL (7-20) Creatinine 1.1mg/dL (0.6-1.0) Estimated GFR (Cockcroft-Gault) 48.8 Glucose Level 96mg/dL (70-99) Calcium Level 8.1mg/dL (8.5-10.1) Magnesium Level 2.6mg/dL (1.8-2.4) Micro Micro Microbiology 11/20/16 Blood Culture - Preliminary, Resulted NO GROWTH AFTER 4 DAYS 11/15/16 Urine Culture - Final, Complete 11/15/16 Urine Culture Result 1 (CAT) - Final, Complete Review of Systems Constitutional: yes: no symptom reported Physical Exam General Appearance: no apparent distress Skin: warm Respiratory: decreased breath sounds Heart: S1S2 Abdomen: soft Extremities: pulses present Neurology: confused Musculoskeletal: low back pain Assessment Assessment IMP SEPSIS HYPOTENSION-BETTER LEUCOCYTOSIS ENCEPHALOPATHY TYRELL WITH CR DOWN TO 1.1 HYPERNATREMIA-BETTER PLAN CONT ANTIBIOTICS CONT WITH PPN FOR NOW WILL FOLLOW JUAN HAM MD Nov 24, 2016 11:38
--- NOTE | 2016-11-24 14:37 | PDOC ---
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 POD#5 s/p hysterectomy. No acute events overnight. Patient resting comfortably; appears to be in no acute distress. d/w nurse about plan of care. Per nurse, patient refused food and pills this AM. Vitals Vitals Vital Signs Date Time Temp Pulse Resp B/P Pulse Ox O2 Delivery O2 Flow Rate FiO2 11/24/16 11:00 98.3 63 16 144/58 96 Room Air 98.3 Physical Exam General: Alert, Cooperative, No acute distress Heart: Regular rate, Normal S1, No murmurs Lungs: Clear, Other (negative accessory muscle use. ) Abdomen: Normal bowel sounds, Soft, Other (pelvic incision covered with gauze) Extremities: No clubbing, No edema Skin: No rashes, Other (incision dressing clean, dry, and intact without surrounding erythema or overt drainage. ) Labs LABS Laboratory Tests Test 11/24/16 03:40 White Blood Count 9.2x10^3/uL (4.0-11.0) Red Blood Count 2.53x10^6/uL (3.50-5.40) Hemoglobin 7.8g/dL (12.0-15.5) Hematocrit 22.9% (36.0-47.0) Mean Corpuscular Volume 90fL (79-100) Mean Corpuscular Hemoglobin 31pg (25-35) Mean Corpuscular Hemoglobin Concent 34g/dL (31-37) Red Cell Distribution Width 14.1% (11.5-14.5) Platelet Count 195x10^3/uL (140-400) Neutrophils (%) (Auto) 71% (31-73) Lymphocytes (%) (Auto) 17% (24-48) Monocytes (%) (Auto) 7% (0-9) Eosinophils (%) (Auto) 3% (0-3) Basophils (%) (Auto) 1% (0-3) Neutrophils # (Auto) 6.6x10^3uL (1.8-7.7) Lymphocytes # (Auto) 1.6x10^3/uL (1.0-4.8) Monocytes # (Auto) 0.7x10^3/uL (0.0-1.1) Eosinophils # (Auto) 0.3x10^3/uL (0.0-0.7) Basophils # (Auto) 0.1x10^3/uL (0.0-0.2) Sodium Level 142mmol/L (136-145) Potassium Level 3.5mmol/L (3.5-5.1) Chloride Level 110mmol/L (98-107) Carbon Dioxide Level 23mmol/L (21-32) Anion Gap 9 (6-14) Blood Urea Nitrogen 19mg/dL (7-20) Creatinine 1.1mg/dL (0.6-1.0) Estimated GFR (Cockcroft-Gault) 48.8 Glucose Level 96mg/dL (70-99) Calcium Level 8.1mg/dL (8.5-10.1) Magnesium Level 2.6mg/dL (1.8-2.4) Review of Systems Review of Systems (+) general malaise (+) pain to incision site Assessment and Plan Assessmemt and Plan Problems Medical Problems: (1) Vaginal bleeding Status: Acute Assessment: Vaginal bleed S/P hysterectomy for symptomatic leiomyomata (11/19) Severe sepsis, improving acute blood loss anemia leukocytosis UTI TYRELL, improving Protein malnutrition 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 4.) continue wound care 5.) continue PPN 6.) appreciate subspecialty input. 7.) diet and activity as tolerated. Problems: Comment Review of Relevant I have reviewed the following items clovis (where applicable) has been applied. Labs Laboratory Tests Test 11/22/16 18:00 11/23/16 03:20 11/24/16 03:40 White Blood Count 4.3x10^3/uL (4.0-11.0) 9.7x10^3/uL (4.0-11.0) 9.2x10^3/uL (4.0-11.0) Red Blood Count 3.21x10^6/uL (3.50-5.40) 2.60x10^6/uL (3.50-5.40) 2.53x10^6/uL (3.50-5.40) Hemoglobin 10.8g/dL (12.0-15.5) 7.9g/dL (12.0-15.5) 7.8g/dL (12.0-15.5) Hematocrit 30.9% (36.0-47.0) 23.5% (36.0-47.0) 22.9% (36.0-47.0) Mean Corpuscular Volume 96fL (79-100) 91fL (79-100) 90fL (79-100) Mean Corpuscular Hemoglobin 34pg (25-35) 30pg (25-35) 31pg (25-35) Mean Corpuscular Hemoglobin Concent 35g/dL (31-37) 34g/dL (31-37) 34g/dL (31-37) Red Cell Distribution Width 14.3% (11.5-14.5) 14.2% (11.5-14.5) 14.1% (11.5-14.5) Platelet Count 171x10^3/uL (140-400) 153x10^3/uL (140-400) 195x10^3/uL (140-400) Neutrophils (%) (Auto) 75% (31-73) 71% (31-73) Lymphocytes (%) (Auto) 16% (24-48) 17% (24-48) Monocytes (%) (Auto) 6% (0-9) 7% (0-9) Eosinophils (%) (Auto) 3% (0-3) 3% (0-3) Basophils (%) (Auto) 1% (0-3) 1% (0-3) Neutrophils # (Auto) 7.2x10^3uL (1.8-7.7) 6.6x10^3uL (1.8-7.7) Lymphocytes # (Auto) 1.6x10^3/uL (1.0-4.8) 1.6x10^3/uL (1.0-4.8) Monocytes # (Auto) 0.6x10^3/uL (0.0-1.1) 0.7x10^3/uL (0.0-1.1) Eosinophils # (Auto) 0.2x10^3/uL (0.0-0.7) 0.3x10^3/uL (0.0-0.7) Basophils # (Auto) 0.1x10^3/uL (0.0-0.2) 0.1x10^3/uL (0.0-0.2) Sodium Level 144mmol/L (136-145) 142mmol/L (136-145) Potassium Level 3.5mmol/L (3.5-5.1) 3.5mmol/L (3.5-5.1) Chloride Level 110mmol/L (98-107) 110mmol/L (98-107) Carbon Dioxide Level 24mmol/L (21-32) 23mmol/L (21-32) Anion Gap 10 (6-14) 9 (6-14) Blood Urea Nitrogen 23mg/dL (7-20) 19mg/dL (7-20) Creatinine 1.2mg/dL (0.6-1.0) 1.1mg/dL (0.6-1.0) Estimated GFR (Cockcroft-Gault) 44.2 48.8 Glucose Level 101mg/dL (70-99) 96mg/dL (70-99) Calcium Level 8.1mg/dL (8.5-10.1) 8.1mg/dL (8.5-10.1) Magnesium Level 2.1mg/dL (1.8-2.4) 2.6mg/dL (1.8-2.4) Laboratory Tests Test 11/24/16 03:40 White Blood Count 9.2x10^3/uL (4.0-11.0) Red Blood Count 2.53x10^6/uL (3.50-5.40) Hemoglobin 7.8g/dL (12.0-15.5) Hematocrit 22.9% (36.0-47.0) Mean Corpuscular Volume 90fL (79-100) Mean Corpuscular Hemoglobin 31pg (25-35) Mean Corpuscular Hemoglobin Concent 34g/dL (31-37) Red Cell Distribution Width 14.1% (11.5-14.5) Platelet Count 195x10^3/uL (140-400) Neutrophils (%) (Auto) 71% (31-73) Lymphocytes (%) (Auto) 17% (24-48) Monocytes (%) (Auto) 7% (0-9) Eosinophils (%) (Auto) 3% (0-3) Basophils (%) (Auto) 1% (0-3) Neutrophils # (Auto) 6.6x10^3uL (1.8-7.7) Lymphocytes # (Auto) 1.6x10^3/uL (1.0-4.8) Monocytes # (Auto) 0.7x10^3/uL (0.0-1.1) Eosinophils # (Auto) 0.3x10^3/uL (0.0-0.7) Basophils # (Auto) 0.1x10^3/uL (0.0-0.2) Sodium Level 142mmol/L (136-145) Potassium Level 3.5mmol/L (3.5-5.1) Chloride Level 110mmol/L (98-107) Carbon Dioxide Level 23mmol/L (21-32) Anion Gap 9 (6-14) Blood Urea Nitrogen 19mg/dL (7-20) Creatinine 1.1mg/dL (0.6-1.0) Estimated GFR (Cockcroft-Gault) 48.8 Glucose Level 96mg/dL (70-99) Calcium Level 8.1mg/dL (8.5-10.1) Magnesium Level 2.6mg/dL (1.8-2.4) Microbiology 11/20/16 Blood Culture - Preliminary, Resulted NO GROWTH AFTER 4 DAYS 11/15/16 Urine Culture - Final, Complete 11/15/16 Urine Culture Result 1 (CAT) - Final, Complete Medications Current Medications Sodium Chloride (Iv Sodium Chloride 0.9% 500ml Bag) 500 ml @ 500 mls/hr 1X ONCE IV Last administered on 11/15/16t 21:30; Start 11/15/16 at 21:30; Stop at 22:29; Status DC Ondansetron HCl (Zofran) 4 mg PRN Q8HRS PRN IV NAUSEA/VOMITING; Start 11/15/16 at 23:45; Stop 11/16/16 at 23:44; Status DC Morphine Sulfate 2 mg PRN Q2HR PRN IV SEVERE PAIN; Start 11/15/16 at 23:45; Stop 11/16/16 at 23:44; Status DC Acetaminophen 650 mg 650 mg PRN Q4HRS PRN PO FEVER; Start 11/15/16 at 23:45; Stop 11/16/16 at 23:44; Status DC Ceftriaxone Sodium (Rocephin 1gm Ivpb For Omni) 50 ml @ 100 mls/hr 1X ONCE IV Last administered on 11/16/16 03:08; Start 11/16/16 at 01:00; Stop 11/16/16 at 01:29; Status DC Atenolol (Tenormin) 50 mg DAILY PO Last administered on 11/19/16 09:30; Start 11/16/16 at 09:30; Stop 11/20/16 at 08:36; Status DC Carbidopa/Levodopa (Sinemet 10/100) 1 tab TID PO Last administered on 14:16; Start 11/16/16 at 09:30 Vitamin D (Vitamin D3) 1,000 unit DAILY PO Last administered on 11/21/16 08:23 ; Start 11/16/16 at 09:30 Famotidine (Pepcid) 10 mg DAILY PO Last administered on 11/18/16 08:21; Start 11/16/16 at 09:30; Stop 11/20/16 at 07:28; Status DC Furosemide (Lasix) 20 mg DAILY PO Last administered on 11/21/16 08:23; Start at 09:30 Olanzapine (Zyprexa) 5 mg DAILY PO Last administered on 11/21/16 08:23; Start 11/16/16 at 09:30 Sertraline HCl (Zoloft) 25 mg DAILY PO Last administered on 11/21/16 08:23; Start 11/16/16 at 09:30 Benztropine Mesylate 2 mg 2 mg BID PO Last administered on 11/23/16 21:43; Start 11/16/16 at 09:30 Ceftriaxone Sodium 1 gm/ Sodium Chloride 50 ml @ 100 mls/hr Q24H IV Last administered on 11/19/16 21:43; Start 11/16/16 at 21:00; Stop 11/20/16 at 10:05; Status DC Sodium Chloride (Iv Sodium Chloride 0.9% 1000ml Bag) 1,000 ml @ 100 mls/hr 1X ONCE IV Last administered on 11/17/16 12:52; Start 11/17/16 at 13:00; Stop at 22:59; Status DC Ondansetron HCl (Zofran) 4 mg PRN Q6HRS PRN IV Nausea, 1st Choice; Start at 13:45; Stop 11/17/16 at 13:50; Status DC Fentanyl Citrate (Fentanyl 2ml Vial) 25 mcg PRN Q5MIN PRN IV Acute Pain; Start 11/17/16 at 13:45; Stop 11/18/16 at 13:44; Status DC Fentanyl Citrate (Fentanyl 2ml Vial) 50 mcg PRN Q5MIN PRN IV Acute Pain; Start 11/17/16 at 13:45; Stop 11/18/16 at 13:44; Status DC Morphine Sulfate 1 mg PRN Q10MIN PRN IV Mild Pain; Start 11/17/16 at 13:45; Stop 11/18/16 at 13:44; Status DC Morphine Sulfate 2 mg 2 mg PRN Q10MIN PRN IV Moderate Pain; Start 11/17/16 at 13 :45; Stop 11/18/16 at 13:44; Status DC Lactated Ringer's (Iv Lactated Ringers) 1,000 ml @ 50 mls/hr Q20H IV Last administered on 11/17/16 14:15; Start 11/17/16 at 13:34; Stop 11/18/16 at 01:33; Status DC Ondansetron HCl (Zofran) 4 mg PRN Q6HRS PRN IV Nausea, 1st Choice; Start at 13:50; Stop 11/18/16 at 13:44; Status DC Fentanyl Citrate (Fentanyl 2ml Vial) 100 mcg STK-MED ONCE .ROUTE ; Start at 14:36; Stop 11/17/16 at 14:37; Status DC Dexamethasone Sodium Phosphate (Decadron) 20 mg STK-MED ONCE .ROUTE ; Start 11/17 at 14:36; Stop 11/17/16 at 14:37; Status DC Ondansetron HCl 4 mg 4 mg STK-MED ONCE .ROUTE ; Start 11/17/16 at 14:36; Stop 11/17/16 at 14:37; Status DC Propofol (Diprivan) 20 ml @ As Directed STK-MED ONCE IV ; Start 11/17/16 at 14:36 ; Stop 11/17/16 at 14:37; Status DC Lidocaine HCl (Lidocaine HCl 2% Abboject) 100 mg STK-MED ONCE .ROUTE ; Start 11/17/16 at 14:36; Stop 11/17/16 at 14:37; Status DC Phenylephrine HCl 1 mg STK-MED ONCE IV ; Start 11/17/16 at 15:00; Stop 11/17/16 at 15:01; Status DC Sevoflurane (Ultane) 30 ml STK-MED ONCE IH ; Start 11/17/16 at 15:30; Stop at 15:31; Status DC Ondansetron HCl (Zofran) 4 mg PRN Q6HRS PRN IV NAUSEA/VOMITING; Start 11/19/16 at 07:00; Stop 11/20/16 at 06:59; Status DC Fentanyl Citrate (Fentanyl 2ml Vial) 25 mcg PRN Q5MIN PRN IV MILD PAIN; Start 11/19/16 at 07:00; Stop 11/20/16 at 06:59; Status DC Fentanyl Citrate (Fentanyl 2ml Vial) 50 mcg PRN Q5MIN PRN IV MODERATE PAIN Last administered on 11/19/16 19:39; Start 11/19/16 at 07:00; Stop 11/20/16 at 06: 59; Status DC Morphine Sulfate 1 mg 1 mg PRN Q10MIN PRN IV SEVERE PAIN; Start 11/19/16 at 06: 45; Stop 11/20/16 at 06:44; Status DC Lactated Ringer's (Iv Lactated Ringers) 1,000 ml @ 0 mls/hr Q0M IV Last administered on 11/19/16 12:56; Start 11/19/16 at 07:00; Stop 11/19/16 at 13:00; Status DC Lidocaine HCl 2 ml PRN 1X PRN ID PRIOR TO IV START; Start 11/19/16 at 07:00; Stop 11/20/16 at 06:59; Status DC Hydromorphone HCl (Dilaudid) 0.5 mg PRN Q10MIN PRN IV SEV PAIN, Second choice; Start 11/19/16 at 06:45; Stop 11/20/16 at 06:44; Status DC Prochlorperazine Edisylate (Compazine) 5 mg PACU PRN PRN IV NAUSEA, MRX1; Start 11/19/16 at 06:45; Stop 11/20/16 at 06:44; Status DC Benztropine Mesylate (Cogentin) 2 mg STK-MED ONCE .ROUTE ; Start 11/16/16 at 09: 00; Stop 11/19/16 at 11:52; Status DC Benztropine Mesylate (Cogentin) 2 mg STK-MED ONCE .ROUTE ; Start 11/16/16 at 09: 00; Stop 11/19/16 at 11:52; Status DC Benztropine Mesylate (Cogentin) 2 mg STK-MED ONCE .ROUTE ; Start 11/17/16 at 09: 00; Stop 11/19/16 at 11:52; Status DC Benztropine Mesylate (Cogentin) 2 mg STK-MED ONCE .ROUTE ; Start 11/18/16 at 09: 00; Stop 11/19/16 at 11:53; Status DC Benztropine Mesylate 2 mg 2 mg STK-MED ONCE .ROUTE ; Start 11/19/16 at 01:00; Stop 11/19/16 at 11:53; Status DC Cefazolin Sodium/ Dextrose 50 ml @ 100 mls/hr 1X PREOP IV Last administered on 11/19/16 14:57; Start 11/19/16 at 13:00; Stop 11/20/16 at 18:00; Status DC Cefazolin Sodium/ Dextrose 50 ml @ As Directed STK-MED ONCE IV ; Start 11/19/16 at 13:03; Stop 11/19/16 at 13:04; Status DC Amino Acids/ Glycerin/ Electrolytes (Procalamine) 1,000 ml @ 80 mls/hr [id number] IV Last administered on 11/23/16t 18:00; Start 11/19/16 at 14:00 Rocuronium Mcfaddin (Zemuron) 50 mg STK-MED ONCE .ROUTE ; Start 11/19/16 at 13:35 ; Stop 11/19/16 at 13:36; Status DC Desflurane 60 ml 60 ml STK-MED ONCE IH ; Start 11/19/16 at 13:35; Stop 11/19/16 at 13:36; Status DC Propofol (Diprivan) 20 ml @ As Directed STK-MED ONCE IV ; Start 11/19/16 at 13:35 ; Stop 11/19/16 at 13:36; Status DC Dexamethasone Sodium Phosphate (Decadron) 20 mg STK-MED ONCE .ROUTE ; Start 11/19 at 13:35; Stop 11/19/16 at 13:36; Status DC Ondansetron HCl (Zofran) 4 mg STK-MED ONCE .ROUTE ; Start 11/19/16 at 13:35; Stop 11/19/16 at 13:36; Status DC Lidocaine HCl (Lidocaine HCl 2% Abboject) 100 mg STK-MED ONCE .ROUTE ; Start 11/19/16 at 13:35; Stop 11/19/16 at 13:36; Status DC Phenylephrine HCl 1 mg STK-MED ONCE IV ; Start 11/19/16 at 13:37; Stop 11/19/16 at 13:38; Status DC Fentanyl Citrate (Fentanyl 2ml Vial) 100 mcg STK-MED ONCE .ROUTE ; Start at 13:59; Stop 11/19/16 at 14:00; Status DC Rocuronium Mcfaddin (Zemuron) 50 mg STK-MED ONCE .ROUTE ; Start 11/19/16 at 14:26 ; Stop 11/19/16 at 14:27; Status DC Ondansetron HCl (Zofran) 4 mg STK-MED ONCE .ROUTE ; Start 11/19/16 at 14:44; Stop 11/19/16 at 14:45; Status DC Glycopyrrolate (Robinul) 1 mg STK-MED ONCE .ROUTE ; Start 11/19/16 at 14:44; Stop 11/19/16 at 14:45; Status DC Neostigmine Methylsulfate 5 mg STK-MED ONCE .ROUTE ; Start 11/19/16 at 14:44; Stop 11/19/16 at 14:45; Status DC Desflurane (Suprane) 60 ml STK-MED ONCE IH ; Start 11/19/16 at 14:58; Stop at 14:59; Status DC Ephedrine Sulfate 50 mg STK-MED ONCE IV ; Start 11/19/16 at 15:05; Stop 11/19/16 at 15:06; Status DC Methylene Blue (Methylene Blue) 1 ml STK-MED ONCE .ROUTE ; Start 11/19/16 at 15: 11; Stop 11/19/16 at 15:12; Status DC Phenylephrine HCl 1 mg STK-MED ONCE IV ; Start 11/19/16 at 15:25; Stop 11/19/16 at 15:26; Status DC Vasopressin (Vasostrict) 20 unit STK-MED ONCE .ROUTE ; Start 11/19/16 at 15:54; Stop 11/19/16 at 15:55; Status DC Epinephrine HCl 1 mg 1 mg STK-MED ONCE .ROUTE ; Start 11/19/16 at 15:56; Stop 11/19/16 at 15:57; Status DC Sodium Chloride 1,000 ml @ 125 mls/hr 1X ONCE IV Last administered on 21:42; Start 11/19/16 at 19:30; Stop 11/20/16 at 03:29; Status DC Propofol 100 ml @ 0 mls/hr CONT PRN IV SEE I/O RECORD Last administered on 00:00; Start 11/19/16 at 20:00; Stop 11/22/16 at 07:35; Status DC Norepinephrine Bitartrate 8 mg/ Sodium Chloride 258 ml @ 0 mls/hr CONT PRN IV SEE I/O RECORD Last administered on 11/19/16 21:44; Start 11/19/16 at 21:30; Stop 11/23/16 at 12:02; Status DC Sodium Chloride (Iv Sodium Chloride 0.9% 1000ml Bag) 1,000 ml @ 125 mls/hr Q8H IV Last administered on 11/20/16 10:15; Start 11/20/16 at 10:00; Stop 11/20/16 at 14:49; Status DC Famotidine 20 mg 20 mg QHS IVP Last administered on 11/23/16 21:43; Start 11/20 at 21:00 Piperacillin Sod/ Tazobactam Sod 3.375 gm/Sodium Chloride 50 ml @ 100 mls/hr Q6HRS IV Last administered on 11/24/16 06:00; Start 11/20/16 at 11:00; Stop 07/31 at 09:17; Status DC Sodium Chloride (Iv Sodium Chloride 0.45%) 1,000 ml @ 125 mls/hr 1X ONCE IV Last administered on 11/20/16 15:08; Start 11/20/16 at 14:45; Stop 11/20/16 at 22: 44; Status DC Sodium Bicarbonate 50 meq 1X ONCE IV Last administered on 11/20/16 15:03; Start 11/20/16 at 14:45; Stop 11/20/16 at 14:51; Status DC Chlorhexidine Gluconate (Peridex) 15 ml BID MM Last administered on 11/21/16 08 :39; Start 11/21/16 at 09:00; Stop 11/22/16 at 07:34; Status DC Acetaminophen 650 mg 650 mg PRN Q6HRS PRN NM MILD PAIN / TEMP Last administered on 11/21/16 21:16; Start 11/21/16 at 21:00 Potassium Chloride 50 ml @ 50 mls/hr 1X ONCE IV ; Start 11/22/16 at 11:15; Stop 11/22/16 at 11:16; Status DC Potassium Chloride (KCl Premix 10meq) 100 ml @ 100 mls/hr Q1H IV Last administered on 11/22/16 13:00; Start 11/22/16 at 12:00; Stop 11/22/16 at 13:59 ; Status DC Amoxicillin/ Clavulanate Potassium (Augmentin 875/ 125mg) 1 tab BID PO ; Start 11/24/16 at 09:00 Active Scripts Active Reported Famotidine 20 Mg Tablet 10 Mg PO DAILY Vitamin D3 (Cholecalciferol (Vitamin D3)) 1,000 Unit Tablet 1,000 Unit PO DAILY Furosemide 20 Mg Tablet 20 Mg PO DAILY Sertraline Hcl 25 Mg Tablet 25 Mg PO DAILY Atenolol 50 Mg Tablet 50 Mg PO DAILY Olanzapine 5 Mg Tablet 5 Mg PO DAILY Benztropine Mesylate 2 Mg Tablet 2 Mg PO BID Carbidopa-Levodopa 10-100 Tab (Carbidopa/Levodopa) 1 Each Tablet 1 Each PO TID Vitals/I & O Vital Sign - Last 24 Hours 11/23/16 11/23/16 11/23/16 11/23/16 15:00 19:00 20:00 23:00 Temp 98.3 98.4 98.6 98.3 98.4 98.6 Pulse 58 60 60 Resp 18 B/P 132/51 134/58 136/57 Pulse Ox 97 96 95 O2 Delivery Room Air Room Air Room Air Room Air 11/24/16 11/24/16 11/24/16 11/24/16 03:00 07:00 07:20 11:00 Temp 98.5 97.4 98.3 98.5 97.4 98.3 Pulse 68 61 63 Resp 16 B/P 135/62 141/62 144/58 Pulse Ox 97 96 96 O2 Delivery Room Air Room Air Room Air Room Air Intake and Output 11/23/16 11/23/16 11/24/16 15:00 23:00 07:00 Intake Total 960 ml Output Total 800 ml 1400 ml Balance -800 ml -440 ml HEBER GARDNER III DO Nov 24, 2016 14:37
--- NOTE | 2016-11-24 14:44 | PDOC ---
PULMONARY PROGRESS NOTES Subjective extubated 11/21 NO RESP DISTRESS Vitals Vital Signs Date Time Temp Pulse Resp B/P Pulse Ox O2 Delivery O2 Flow Rate FiO2 11/24/16 11:00 98.3 63 16 144/58 96 Room Air 98.3 ROS: No Nausea, No Chest Pain, No Abdominal Pain, No Increase Cough Lungs: Clear, Other (negative accessory muscle use. ) Cardiovascular: S1, S2 Abdomen: Soft, Non-tender Neuro Exam: Alert Extremities: Other (edema) Skin: Warm Labs Laboratory Tests Test 11/22/16 18:00 11/23/16 03:20 11/24/16 03:40 White Blood Count 4.3x10^3/uL (4.0-11.0) 9.7x10^3/uL (4.0-11.0) 9.2x10^3/uL (4.0-11.0) Red Blood Count 3.21x10^6/uL (3.50-5.40) 2.60x10^6/uL (3.50-5.40) 2.53x10^6/uL (3.50-5.40) Hemoglobin 10.8g/dL (12.0-15.5) 7.9g/dL (12.0-15.5) 7.8g/dL (12.0-15.5) Hematocrit 30.9% (36.0-47.0) 23.5% (36.0-47.0) 22.9% (36.0-47.0) Mean Corpuscular Volume 96fL (79-100) 91fL (79-100) 90fL (79-100) Mean Corpuscular Hemoglobin 34pg (25-35) 30pg (25-35) 31pg (25-35) Mean Corpuscular Hemoglobin Concent 35g/dL (31-37) 34g/dL (31-37) 34g/dL (31-37) Red Cell Distribution Width 14.3% (11.5-14.5) 14.2% (11.5-14.5) 14.1% (11.5-14.5) Platelet Count 171x10^3/uL (140-400) 153x10^3/uL (140-400) 195x10^3/uL (140-400) Neutrophils (%) (Auto) 75% (31-73) 71% (31-73) Lymphocytes (%) (Auto) 16% (24-48) 17% (24-48) Monocytes (%) (Auto) 6% (0-9) 7% (0-9) Eosinophils (%) (Auto) 3% (0-3) 3% (0-3) Basophils (%) (Auto) 1% (0-3) 1% (0-3) Neutrophils # (Auto) 7.2x10^3uL (1.8-7.7) 6.6x10^3uL (1.8-7.7) Lymphocytes # (Auto) 1.6x10^3/uL (1.0-4.8) 1.6x10^3/uL (1.0-4.8) Monocytes # (Auto) 0.6x10^3/uL (0.0-1.1) 0.7x10^3/uL (0.0-1.1) Eosinophils # (Auto) 0.2x10^3/uL (0.0-0.7) 0.3x10^3/uL (0.0-0.7) Basophils # (Auto) 0.1x10^3/uL (0.0-0.2) 0.1x10^3/uL (0.0-0.2) Sodium Level 144mmol/L (136-145) 142mmol/L (136-145) Potassium Level 3.5mmol/L (3.5-5.1) 3.5mmol/L (3.5-5.1) Chloride Level 110mmol/L (98-107) 110mmol/L (98-107) Carbon Dioxide Level 24mmol/L (21-32) 23mmol/L (21-32) Anion Gap 10 (6-14) 9 (6-14) Blood Urea Nitrogen 23mg/dL (7-20) 19mg/dL (7-20) Creatinine 1.2mg/dL (0.6-1.0) 1.1mg/dL (0.6-1.0) Estimated GFR (Cockcroft-Gault) 44.2 48.8 Glucose Level 101mg/dL (70-99) 96mg/dL (70-99) Calcium Level 8.1mg/dL (8.5-10.1) 8.1mg/dL (8.5-10.1) Magnesium Level 2.1mg/dL (1.8-2.4) 2.6mg/dL (1.8-2.4) Laboratory Tests Test 11/24/16 03:40 White Blood Count 9.2x10^3/uL (4.0-11.0) Red Blood Count 2.53x10^6/uL (3.50-5.40) Hemoglobin 7.8g/dL (12.0-15.5) Hematocrit 22.9% (36.0-47.0) Mean Corpuscular Volume 90fL (79-100) Mean Corpuscular Hemoglobin 31pg (25-35) Mean Corpuscular Hemoglobin Concent 34g/dL (31-37) Red Cell Distribution Width 14.1% (11.5-14.5) Platelet Count 195x10^3/uL (140-400) Neutrophils (%) (Auto) 71% (31-73) Lymphocytes (%) (Auto) 17% (24-48) Monocytes (%) (Auto) 7% (0-9) Eosinophils (%) (Auto) 3% (0-3) Basophils (%) (Auto) 1% (0-3) Neutrophils # (Auto) 6.6x10^3uL (1.8-7.7) Lymphocytes # (Auto) 1.6x10^3/uL (1.0-4.8) Monocytes # (Auto) 0.7x10^3/uL (0.0-1.1) Eosinophils # (Auto) 0.3x10^3/uL (0.0-0.7) Basophils # (Auto) 0.1x10^3/uL (0.0-0.2) Sodium Level 142mmol/L (136-145) Potassium Level 3.5mmol/L (3.5-5.1) Chloride Level 110mmol/L (98-107) Carbon Dioxide Level 23mmol/L (21-32) Anion Gap 9 (6-14) Blood Urea Nitrogen 19mg/dL (7-20) Creatinine 1.1mg/dL (0.6-1.0) Estimated GFR (Cockcroft-Gault) 48.8 Glucose Level 96mg/dL (70-99) Calcium Level 8.1mg/dL (8.5-10.1) Magnesium Level 2.6mg/dL (1.8-2.4) Medications Active Scripts Medications Dose Route/Sig Days Date Category Famotidine 20 Mg Tablet 10 Mg PO DAILY 06/03/16 Reported Vitamin D3 (Cholecalciferol (Vitamin D3)) 1,000 Unit Tablet 1,000 Unit PO DAILY 06/03/16 Reported Furosemide 20 Mg Tablet 20 Mg PO DAILY 06/03/16 Reported Sertraline Hcl 25 Mg Tablet 25 Mg PO DAILY 06/03/16 Reported Atenolol 50 Mg Tablet 50 Mg PO DAILY 03/01/14 Reported Olanzapine 5 Mg Tablet 5 Mg PO DAILY 03/01/14 Reported Benztropine Mesylate 2 Mg Tablet 2 Mg PO BID 03/01/14 Reported Carbidopa-Levodopa 10-100 Tab (Carbidopa/Levodopa) 1 Each Tablet 1 Each PO TID 03/01/14 Reported Comments cxr reviewed, Impression . 1. Expected Acute respiratory failure sec to surgery 2. Abnormal chest x-ray. 3. Atelectasis. 4. Vaginal bleeding, status post emergency total abdominal hysterectomy and bilateral salpingo-oophorectomy. Status post PRBC transfusion. 5. Parkinson. 6. TYRELL 7. Acute blood loss anemia Plan . PT BETTER OFF 02 D/C HOME TODAY BITA DE JESUS MD Nov 24, 2016 14:44
[2016-11-24] MEDS ORDERED: AMOX1TAB10 PO (14:55)
--- NOTE | 2016-11-24 15:56 | PATHOLOGY ---
PATHOLOGY REPORT * * * * * * * * FINAL DIAGNOSIS: A. Uterus, fallopian tube and ovary, and separate segment of uterine smooth muscle, total abdominal hysterectomy with left salpingo-oophorectomy: - Leiomyoma, previously removed from uterus, measuring 12.5 cm in greatest dimension (weight 842 grams). - Elongation and thinning of cervix with chronic cervicitis and focal squamous metaplasia. - Atrophic endometrium. - Adenomyosis, subbasal, focal. - Leiomyomas (2), uterine corpus, intramural, measuring up to 1.1 cm. - Cystic [place] rests of left fallopian tube. - Surface papillary serous adenofibroma of ovary. B. Fallopian tube and ovary, right salpingo-oophorectomy: - Cystic [place] rests and mesothelial cysts of fallopian tube. - Serous cystadenofibroma and surface papillary serous adenofibroma of ovary. COMMENT: There is no evidence of malignancy. (JPM:; d/t: 11/24/16) REPORT ELECTRONICALLY SIGNED BY: Ruddy Rosales M.D. DATE/TIME: 11/24/2016 15:55 * * * * * * * * GROSS PATHOLOGY: A. The specimen is received in formalin, labeled "Alejandrina Brothers - uterus, cervix, left tube and ovary, and fibroid." Received is an 87 g distorted and partially opened uterus with an attached long segment of membranous soft tissue (consistent with an elongated, thinned, and splayed out cervix), a detached adnexa, and a detached large fibroid. The uterus measures 15.0 cm from fundus to cervix, 5.3 cm from cornu to cornu, and 2.8 cm from anterior to posterior. The uterus is oriented using the peritoneal reflection. The posterior/lateral aspect of the uterus displays multiple white sutures. The serosa is red-pink, diffusely hemorrhagic, wrinkled, and displays adhesions. The 2.0 x 1.5 suspected cervix displays a 1.9 cm slit-like os. The suspected ectocervical mucosa is white-costello and slightly hemorrhagic. The specimen was previously opened to reveal a pink-costello, diffusely hemorrhagic, and wrinkled endocervical canal measuring 11.2 cm in length and approximately 2.0 cm in width. The distorted, red-costello, and granular endometrial cavity measures 2.0 cm in length and 1.8 cm from cornu to cornu. The pink-costello endometrium measures 0.1 cm in thickness. The pink-costello myometrium measures 2.0 cm in maximum thickness. Sectioning reveals a 0.5 cm in greatest dimension white-costello and intramural fibroid. The remaining uterine cut surface is costello and grossly unremarkable. The 42 g adnexa consists of a 4.8 cm in length fimbriated fallopian tube with a 0.5 cm diameter attached to a 4.0 x 2.0 x 1.2 cm ovary. The external surface of the fallopian tube is purple-pink, wrinkled, and displays multiple cysts filled with clear serous fluid and ranging from 0.2-0.5 cm in greatest dimension. Sectioning reveals a pinpoint lumen. The external surface of the ovary is yellow-costello and cerebriform. Attached/adhesed to the ovary is a 5.5 x 4.8 x 2.5 cm pink-costello to white-costello and nodular soft tissue, suggestive of a possible fibroid. Sectioning through the possible fibroid reveals a pink-costello, partially cystic, and whorled cut surface. Sectioning through the ovary reveals several thin walled and uniloculated cysts filled with clear serous fluid ranging from 0.2-0.4 cm in greatest dimension. The remaining ovarian stroma is yellow-costello and displays few white-costello corpora albicantia. No papillary excrescences are grossly identified. Sectioning through the 842 g, 12.5 x 12.4 x 10.0 cm fibroid reveals a pink-costello, slightly hemorrhagic, and whorled cut surface. No necrosis is grossly identified. Machine Leather Trimmer sections are submitted as follows: A1-A2 sections of possible anterior cervix A3-A4 sections of possible posterior cervix A5-A6 full-thickness sections of endomyometrium and serosa, anterior to posterior (anterior aspect inked black) A7 0.5 cm intramural fibroid A8 adnexa to include paratubal and ovarian cysts A9 possible fibroid attached to ovary A10 842 g fibroid B. The specimen is received in formalin, labeled "Alejandrina Brothers - right tube and ovary." Received is a 27 g adnexal specimen, which consists of a 9.8 cm in length fimbriated fallopian tube with a 0.8 cm diameter attached to a 3.8 x 2.3 x 1.5 cm ovary. The external surface of the fallopian tube is purple-pink, wrinkled, and displays multiple cysts filled with clear serous fluid and ranging from 0.2-0.5 cm in greatest dimension. Sectioning reveals a pinpoint lumen. The external surface of the ovary is pink-costello to yellow-costello and cerebriform. Sectioning reveals multiple thin walled and uniloculated cysts filled with clear serous fluid ranging from 0.2-1.3 cm in greatest dimension. The remaining ovarian stroma is yellow-costello and displays few white-costello corpora albicantia. No papillary excrescences are grossly identified. Machine Leather Trimmer sections are submitted as follows: B1 fallopian tube to include cysts B2-B3 ovary to include cysts (TTL; 11/23/2016) INITIAL CPT CODE(S): A; 67880 Professional services [place] [address] Technical services performed by [facility] at [address] [place] [address]. SPECIMEN(S) RECEIVED: A.Uterus, cervix, left tubes and ovaries, fibroid B.Right tube and ovary CLINICAL HISTORY: Post menopausal bleeding, fibroids PATIENT: ALEJANDRINA BROTHERS /AGE: 4 1945 (Age: 70) PATIENT #: [id number] ALT CASE #: SPECIMEN COLLECTION DATE: 11/19/2016 SPECIMEN RECEIVED DATE: 11/22/2016 [facility] - [address] [place] [address] - PHONE: [phone] * * * END OF REPORT * * *
--- NOTE | 2016-11-24 19:54 | DS ---
DATE OF DISCHARGE: 11/24/2016 ADMISSION DIAGNOSIS: Vaginal bleeding. DISCHARGE DIAGNOSIS: Status post hysterectomy. HOSPITAL COURSE: The patient is a pleasant 70-year-old female presented with vaginal bleeding. She had uterine fibroid. She was admitted. We consulted ZOO DIRECTOR. She was taken for a hysterectomy. Postoperatively, she is doing well. We plan to discharge to home with home health. DISPOSITION: Home with home health. ACTIVITY: As tolerated. DIET: Low sodium. MEDICATIONS: Please see the MRAD. TOTAL TIME ON DISCHARGE: 31 minutes. HEBER GARDNER DO DR: [email or web address]/leigha JOB#: [id number] / [id number]
== END 2016-11-24 16:15 | disposition home health service (06) | DRG 853 ==
LOC: ER 20:58 → 5 SOUTH 22:56 → 1 WEST ICU 11-19 19:19 → 4 NORTH 11-22 16:23
PROVIDERS: ADMIT Internal Medicine; ATTEND Internal Medicine
PROC: 0UDB8ZZ Extraction of Endometrium, Via Natural or Artificial Opening Endoscopic (ICD-10-PCS; 2016-11-17)
PROC: 0UTC0ZZ Resection of Cervix, Open Approach (ICD-10-PCS; 2016-11-19)
PROC: 0UT70ZZ Resection of Bilateral Fallopian Tubes, Open Approach (ICD-10-PCS; 2016-11-19)
PROC: 0UT20ZZ Resection of Bilateral Ovaries, Open Approach (ICD-10-PCS; 2016-11-19)
PROC: 30233N1 Transfusion of Nonautologous Red Blood Cells into Peripheral Vein, Percutaneous Approach (ICD-10-PCS; 2016-11-19)
PROC: 5A1945Z Respiratory Ventilation, 24-96 Consecutive Hours (ICD-10-PCS; 2016-11-19)
PROC: 0BH17EZ Insertion of Endotracheal Airway into Trachea, Via Natural or Artificial Opening (ICD-10-PCS; 2016-11-19)
PROC: 0UT90ZZ Resection of Uterus, Open Approach (ICD-10-PCS; principal; 2016-11-19 13:00)
DX: A41.9 Sepsis, unspecified organism (principal); G93.40 Encephalopathy, unspecified; J95.821 Acute postprocedural respiratory failure; N17.0 Acute kidney failure with tubular necrosis; E44.1 Mild protein-calorie malnutrition; N39.0 Urinary tract infection, site not specified; R57.9 Shock, unspecified; D62 Acute posthemorrhagic anemia; E87.0 Hyperosmolality and hypernatremia; J98.11 Atelectasis; R65.20 Severe sepsis without septic shock; Z68.25 Body mass index [BMI] 25.0-25.9, adult; G24.01 Drug induced subacute dyskinesia; N93.9 Abnormal uterine and vaginal bleeding, unspecified; D25.9 Leiomyoma of uterus, unspecified; E86.9 Volume depletion, unspecified; E87.6 Hypokalemia; F20.9 Schizophrenia, unspecified; F32.9 Major depressive disorder, single episode, unspecified; F41.9 Anxiety disorder, unspecified; G20 Parkinson's disease; I11.0 Hypertensive heart disease with heart failure; I25.10 Atherosclerotic heart disease of native coronary artery without angina pectoris; I50.9 Heart failure, unspecified; K21.9 Gastro-esophageal reflux disease without esophagitis; N95.0 Postmenopausal bleeding; R13.10 Dysphagia, unspecified; Z74.01 Bed confinement status
CPT/HCPCS: 36415; 36600; 71010; 74000; 76770; 76830; 76856; 80048; 80053; 81001; 82274; 82805; 83605; 83735; 85007; 85027; 85610; 85730; 86850; 86900; 86901; 86920; 87040; 87086; 87641; 88307; 94002; 94003; 96360; J0171; J0690; J0696; J1100; J2370; J2405; J2543; J2704; J2710; J3010; J3480; J3490; J7030; J7040; J7050; J7120; P9016; Q9968; S0028; 92526; 92610; 99285-25

== ENCOUNTER 2016-11-26 11:57 | Emergency (ER) | payer MEDICARE, BC ==
[~2016-11-26] VITALS: Ht 152.4 cm; Wt 68.0 kg
[~2016-11-26 11:57] MED LIST changes: +AMOX1TAB10 PO
--- NOTE | 2016-11-26 12:29 | PHYS DOC ---
Past Medical History Past Medical History: Anxiety, Depression, Hypertension, Schizophrenia, Other Additional Past Medical Histor: Dysphagia - resolved., poss chf, PARKINSONS Past Surgical History: Other Additional Past Surgical Histo: Peg tube placement and removal, bilat pedal edema Alcohol Use: Rarely Drug Use: None Adult General Chief Complaint Chief Complaint: POST-OP PROBLEM HPI HPI Patient is a 70 year old female who presents with vaginal bleeding. Patient reports she had a total hysterectomy [address] Enamorado. Today she started having unprovoked vaginal bleeding about 2 hours prior to arrival. No pain, no urinary issues. No other acute complaints. Review of Systems Review of Systems Constitutional: Denies fever or chills Respiratory: Denies cough or shortness of breath Cardiovascular: Denies chest pain GI: Denies abdominal pain, nausea, vomiting, or diarrhea : Painless vaginal bleeding Musculoskeletal: Denies back pain or joint pain Neurologic: Denies headache, focal weakness or sensory changes Allergies Allergies Allergies Coded Allergies Type Severity Reaction Last Updated Verified No Known Drug Allergies 11/19/16 No Physical Exam Physical Exam Constitutional: Well developed, well nourished, no acute distress, non-toxic appearance HENT: Normocephalic, atraumatic, bilateral external ears normal Eyes: EOMI, conjunctiva normal, no discharge Cardiovascular: Heart rate normal, regular rhythm, no murmur Lungs & Thorax: Bilateral breath sounds clear to auscultation Abdomen: Bowel sounds normal, soft, non-distended, mild suprapubic TTP without guarding or rebound Pelvic: Moderate amount thick, dark red blood in vault; no bright red blood noted Skin: Warm, dry, no erythema, no rash Extremities: No obvious deformity, no edema Neurologic: Alert and oriented X 3, baseline tremor (h/o Parkinsons), no gross deficits noted Current Patient Data Vital Signs Vital Signs Date Time Temp Pulse Resp B/P Pulse Ox O2 Delivery O2 Flow Rate FiO2 11/26/16 12:05 98.5 81 20 147/70 98 Room Air 98.5 Lab Values Laboratory Tests Test 11/26/16 12:45 White Blood Count 14.6x10^3/uL (4.0-11.0) #H Red Blood Count 3.12x10^6/uL (3.50-5.40) L Hemoglobin 9.3g/dL (12.0-15.5) L Hematocrit 27.8% (36.0-47.0) L Mean Corpuscular Volume 89fL (79-100) Mean Corpuscular Hemoglobin 30pg (25-35) Mean Corpuscular Hemoglobin Concent 34g/dL (31-37) Red Cell Distribution Width 14.7% (11.5-14.5) H Platelet Count 294x10^3/uL (140-400) Neutrophils (%) (Auto) 84% (31-73) H Lymphocytes (%) (Auto) 8% (24-48) L Monocytes (%) (Auto) 7% (0-9) Eosinophils (%) (Auto) 1% (0-3) Basophils (%) (Auto) 1% (0-3) Neutrophils # (Auto) 12.3x10^3uL (1.8-7.7) H Lymphocytes # (Auto) 1.1x10^3/uL (1.0-4.8) Monocytes # (Auto) 1.0x10^3/uL (0.0-1.1) Eosinophils # (Auto) 0.1x10^3/uL (0.0-0.7) Basophils # (Auto) 0.1x10^3/uL (0.0-0.2) Prothrombin Time 14.4SEC (11.7-14.0) H Prothrombin Time INR 1.2 (0.8-1.1) H PTT 31SEC (24-38) Sodium Level 144mmol/L (136-145) Potassium Level 3.7mmol/L (3.5-5.1) Chloride Level 107mmol/L (98-107) Carbon Dioxide Level 24mmol/L (21-32) Anion Gap 13 (6-14) Blood Urea Nitrogen 11mg/dL (7-20) Creatinine 1.0mg/dL (0.6-1.0) Estimated GFR (Cockcroft-Gault) 54.5 Glucose Level 129mg/dL (70-99) H Calcium Level 8.9mg/dL (8.5-10.1) Laboratory Tests 11/26/16 12:45 Laboratory Tests 11/26/16 12:45 EKG EKG [] Radiology/Procedures Radiology/Procedures [] Course & Med Decision Making Course & Med Decision Making Pertinent Labs and Imaging studies reviewed. (See chart for details) Patient is 70 year old female who presents with vaginal bleeding after recent hysterectomy. Abbreviated pelvic exam performed, dark red blood noted in vault. Ordered labs to check hgb as well as coags. Hgb improved to 9.3 today from 7.8 two days ago. Does have a leukocytosis; chart review shows that WBC often elevated for this patient. She does not have fever or tachycardia. Discussed results with patient and visitor. Discussed exam and results with Dr. Enamorado; not unexpected that patient would have bleeding after this procedure. Given vital signs and lab results, ok to send patient home today and have her follow up as outpatient at beginning of next week. Discussed plan with patient. Will discharge home with instructions for follow up and strict return precautions. Dragon Disclaimer Dragon Disclaimer This electronic medical record was generated, in whole or in part, using a voice recognition dictation system. Departure Departure Impression: Primary Impression: Postoperative vaginal bleeding Disposition: HOME, SELF-CARE Condition: STABLE Referrals: UNKNOWN PCP NAME (PCP) ABAD ENAMORADO MD Patient Instructions: Hysterectomy Information, Hysterectomy, Care After Additional Instructions: Thank you for allowing us to provide care today in the Emergency Department. Schedule a follow up appointment with Dr. Enamorado for the beginning of next week. Return promptly to the Emergency Department if you develop any new or concerning symptoms, such as dizziness or shortness of breath. FAHEEM HERZOG MD Nov 26, 2016 12:29
[2016-11-26 12:57] LABS: BASO # 0.1 x10^3/uL (0.0-0.2); BASO % 1 % (0-3); EOS % 1 % (0-3); HEMATOCRIT 27.8 % (36.0-47.0); HEMOGLOBIN 9.3 g/dL (12.0-15.5); LYMPH # 1.1 x10^3/uL (1.0-4.8); LYMPH % 8 % (24-48); MEAN CORPUSCULAR HEMOGLOBIN 30 pg (25-35); MEAN CORPUSCULAR HGB CONC 34 g/dL (31-37); MEAN CORPUSCULAR VOLUME 89 fL (79-100); MONO % 7 % (0-9); NEUT % 84 % (31-73); PLATELET COUNT 294 x10^3/uL (140-400); RED BLOOD COUNT 3.12 x10^6/uL (3.50-5.40); RED CELL DISTRIBUTION WIDTH 14.7 % (11.5-14.5); WHITE BLOOD COUNT 14.6 x10^3/uL (4.0-11.0)
[2016-11-26 13:06] LABS: CALCIUM 8.9 mg/dL (8.5-10.1); GFR 54.5; POTASSIUM 3.7 mmol/L (3.5-5.1)
[2016-11-26 13:07] LABS: INR 1.2 (0.8-1.1); PROTHROMBIN TIME PATIENT 14.4 SEC (11.7-14.0)
[2016-11-26 15:15] VITALS: BP 135/60
== END 2016-11-26 15:23 | disposition home or self-care (01) ==
LOC: ER 11:57
DX: N99.820 Postprocedural hemorrhage of a genitourinary system organ or structure following a genitourinary system procedure (principal); F20.9 Schizophrenia, unspecified; F32.9 Major depressive disorder, single episode, unspecified; F41.9 Anxiety disorder, unspecified; I10 Essential (primary) hypertension; Z90.710 Acquired absence of both cervix and uterus; Y83.8 Other surgical procedures as the cause of abnormal reaction of the patient, or of later complication, without mention of misadventure at the time of the procedure; Y92.89 Other specified places as the place of occurrence of the external cause
CPT/HCPCS: 36415; 80048; 85027; 85610; 85730; 99284

== ENCOUNTER 2017-05-26 17:22 | Inpatient (IN) | payer MEDICARE, BC ==
[~2017-05-26] VITALS: Ht 154.9 cm; Wt 46.0 kg
[~2017-05-26 17:22] MED LIST changes: +CLON0.2T PO; +DIAZ5TAB4 PO; +FLUV100T2 PO; +FURO40TA4 PO; +LOPE2CAP PO; +MECL25TA3 PO; -POTA10CA PO; +POTA10TA31 PO; +POTASSIUM CHLO10 MEQ PO
[2017-05-26] MEDS ORDERED: IV NORMAL SALINE 1000ML BAG 1,000 ML IV SCH (19:05)
[2017-05-26 19:16] LABS: BASO # 0.1 x10^3/uL (0.0-0.2); BASO % 1 % (0-3); EOS % 0 % (0-3); HEMATOCRIT 36.6 % (36.0-47.0); HEMOGLOBIN 12.5 g/dL (12.0-15.5); LYMPH # 1.3 x10^3/uL (1.0-4.8); LYMPH % 12 % (24-48); MEAN CORPUSCULAR HEMOGLOBIN 30 pg (25-35); MEAN CORPUSCULAR HGB CONC 34 g/dL (31-37); MEAN CORPUSCULAR VOLUME 89 fL (79-100); MONO % 5 % (0-9); NEUT % 83 % (31-73); PLATELET COUNT 277 x10^3/uL (140-400); RED CELL DISTRIBUTION WIDTH 13.9 % (11.5-14.5)
[2017-05-26 19:17] LABS: BILIRUBIN,URINE NEGATIVE (NEG); GLUCOSE,URINE NEGATIVE (NEG); NITRITE,URINE NEGATIVE (NEG); PH,URINE 6.5; PROTEIN,URINE NEGATIVE (NEG-TRACE)
--- NOTE | 2017-05-26 19:17 | PHYS DOC ---
Past Medical History Past Medical History: Anxiety, Depression, Hypertension, Schizophrenia, Other Additional Past Medical Histor: Dysphagia - resolved., poss chf, PARKINSONS, LARGE LEFT BUTTOCK WOUND Past Surgical History: Hysterectomy, Other Additional Past Surgical Histo: Peg tube placement and removal, bilat pedal edema Alcohol Use: Rarely Drug Use: None Adult General Chief Complaint Chief Complaint: WOUND CHECK HPI HPI Patient is a 71 year old female who presents with complaint of possible infected decubitus ulcer. The patient was brought to the emergency department by EMS. The patient was checked on by home health earlier today who noticed a significant ulcer to the left buttock. Reportedly 2-1/2 weeks ago the patient was noted to have mild redness in the same area by home health. This was being treated as a "diaper rash" as reported by the patient's brother who helps take care of her at home. Patient has history of Parkinson's disease and does not self ambulate. Patient denies any pain at this time and has not had any fevers or vomiting. The home health nurse reported that she is concerned she could see "bone coming through the wound" which is why she recommended the patient be brought to the emergency department. Review of Systems Review of Systems Constitutional: Denies fever or chills [] Eyes: Denies change in visual acuity, redness, or eye pain [] HENT: Denies nasal congestion or sore throat [] Respiratory: Denies cough or shortness of breath [] Cardiovascular: No additional information not addressed in HPI [] GI: Denies abdominal pain, nausea, vomiting, bloody stools or diarrhea [] : Denies dysuria or hematuria [] Musculoskeletal: Denies back pain or joint pain [] Integument: Denies rash or skin lesions [] Neurologic: Denies headache, focal weakness or sensory changes [] Endocrine: Denies polyuria or polydipsia [] Current Medications Current Medications Current Medications Medications (Trade) Dose Ordered Sig/Zacarias Start Time Stop Time Status Last Admin Dose Admin Acetaminophen (Tylenol) 650 mg PRN Q4HRS PRN 05/26/17 20:15 05/27/17 20:14 Ondansetron HCl (Zofran) 4 mg PRN Q8HRS PRN 05/26/17 20:15 05/27/17 20:14 Piperacillin Sod/ Tazobactam Sod (Zosyn Per Pharmacy) 1 each PRN DAILY PRN 05/26/17 20:15 Piperacillin Sod/ Tazobactam Sod 3.375 gm/Sodium Chloride 50 ml @ 100 mls/hr 1X ONCE 05/26/17 20:15 05/26/17 20:44 DC 05/26/17 20:23 100 MLS/HR Sodium Chloride 1,000 ml @ 100 mls/hr Q10H 05/26/17 20:01 05/27/17 20:00 Vancomycin HCl (Vanco Per Pharmacy) 1 each PRN DAILY PRN 05/26/17 20:15 05/26/17 20:51 1 EACH Allergies Allergies Allergies Coded Allergies Type Severity Reaction Last Updated Verified No Known Drug Allergies 11/19/16 No Physical Exam Physical Exam Constitutional: Alert, afebrile, vital signs stable, appears in chronically poor health. [] HENT: Normocephalic, atraumatic, bilateral external ears normal, oropharynx moist, no oral exudates, nose normal. [] Eyes: PERRLA, EOMI, conjunctiva normal, no discharge. [] Neck: Normal range of motion, no tenderness, supple, no stridor. [] Cardiovascular:Heart rate regular rhythm, no murmur [] Lungs & Thorax: Bilateral breath sounds clear to auscultation [] Abdomen: Bowel sounds normal, soft, no tenderness, no masses, no pulsatile masses. [] Skin: Warm, dry, no erythema, no rash. [] Back: No tenderness, no CVA tenderness. [] Extremities: No tenderness, no cyanosis, no clubbing, ROM intact, no edema. [] Neurologic: Alert and oriented X 3, normal motor function, normal sensory function, no focal deficits noted. [] Current Patient Data Vital Signs Vital Signs Date Time Temp Pulse Resp B/P (MAP) Pulse Ox O2 Delivery O2 Flow Rate FiO2 05/26/17 17:44 98.0 69 22 80/61 (67) 94 Room Air 98.0 Lab Values Laboratory Tests Test 05/26/17 17:50 White Blood Count 11.0 x10^3/uL (4.0-11.0) Red Blood Count 4.10 x10^6/uL (3.50-5.40) Hemoglobin 12.5 g/dL (12.0-15.5) Hematocrit 36.6 % (36.0-47.0) Mean Corpuscular Volume 89 fL (79-100) Mean Corpuscular Hemoglobin 30 pg (25-35) Mean Corpuscular Hemoglobin Concent 34 g/dL (31-37) Red Cell Distribution Width 13.9 % (11.5-14.5) Platelet Count 277 x10^3/uL (140-400) Neutrophils (%) (Auto) 83 % (31-73) H Lymphocytes (%) (Auto) 12 % (24-48) L Monocytes (%) (Auto) 5 % (0-9) Eosinophils (%) (Auto) 0 % (0-3) Basophils (%) (Auto) 1 % (0-3) Neutrophils # (Auto) 9.1 x10^3uL (1.8-7.7) H Lymphocytes # (Auto) 1.3 x10^3/uL (1.0-4.8) Monocytes # (Auto) 0.6 x10^3/uL (0.0-1.1) Eosinophils # (Auto) 0.0 x10^3/uL (0.0-0.7) Basophils # (Auto) 0.1 x10^3/uL (0.0-0.2) Urine Collection Type Unknown Urine Color Yellow Urine Clarity Clear Urine pH 6.5 Urine Specific [place] <=1.005 Urine Protein Negative mg/dL (NEG-TRACE) Urine Glucose (UA) Negative mg/dL (NEG) Urine Ketones (Stick) Negative mg/dL (NEG) Urine Blood Negative (NEG) Urine Nitrite Negative (NEG) Urine Bilirubin Negative (NEG) Urine Urobilinogen Dipstick 1.0 mg/dL (0.2 mg/dL) Urine Leukocyte Esterase Negative (NEG) Urine RBC 0 /HPF (0-2) Urine WBC 0 /HPF (0-4) Urine Squamous Epithelial Cells Occ /LPF Urine Bacteria 0 /HPF (0-FEW) Sodium Level 144 mmol/L (136-145) Potassium Level 4.1 mmol/L (3.5-5.1) Chloride Level 104 mmol/L (98-107) Carbon Dioxide Level 33 mmol/L (21-32) H Anion Gap 7 (6-14) Blood Urea Nitrogen 13 mg/dL (7-20) Creatinine 0.7 mg/dL (0.6-1.0) Estimated GFR (Cockcroft-Gault) 82.0 BUN/Creatinine Ratio 19 (6-20) Glucose Level 152 mg/dL (70-99) H Calcium Level 9.6 mg/dL (8.5-10.1) Total Bilirubin 0.3 mg/dL (0.2-1.0) Aspartate Amino Transferase (AST) 14 U/L (15-37) L Alanine Aminotransferase (ALT) 8 U/L (14-59) L Alkaline Phosphatase 70 U/L (46-116) Total Protein 6.9 g/dL (6.4-8.2) Albumin 2.9 g/dL (3.4-5.0) L Albumin/Globulin Ratio 0.7 (1.0-1.7) L Laboratory Tests 05/26/17 17:50 Laboratory Tests 05/26/17 17:50 EKG EKG Not performed[] Radiology/Procedures Radiology/Procedures Two-view hip and one view pelvis interpreted by me: No fractures, normal alignment, no gas accumulation in soft tissues[] Course & Med Decision Making Course & Med Decision Making Pertinent Labs and Imaging studies reviewed. (See chart for details) The patient was started on IV vancomycin and Zosyn for treatment of infected decubitus ulcer. Patient does not appear septic. Due to patient's advanced age, comorbidities, and likely need for debridement of the patient's ulcer, the patient will require admission to the hospital for further treatment. I spoke with Dr. Clark who accepted care patient in hospital. Dragon Disclaimer Dragon Disclaimer This electronic medical record was generated, in whole or in part, using a voice recognition dictation system. Departure Departure Impression: Primary Impression: Infected decubitus ulcer Additional Impressions: Parkinsons disease Moderate protein malnutrition Referrals: VIANEY BAEZA SPOT MACHINE OPERATOR (PCP) Problem Qualifiers Primary Impression: Infected decubitus ulcer Pressure ulcer stage: unstageable Qualified Codes: L89.95 - Pressure ulcer of unspecified site, unstageable; L08.9 - Local infection of the skin and subcutaneous tissue, unspecified NOEL PARKINSON MD May 26, 2017 19:17
[2017-05-26 19:24] LABS: BACTERIA,URINE 0 /HPF (0-FEW); RBC,URINE 0 /HPF (0-2); SQUAMOUS EPITHELIAL CELL,UR OCC /LPF; WBC,URINE 0 /HPF (0-4)
[2017-05-26 19:26] LABS: CALCIUM 9.6 mg/dL (8.5-10.1); CREATININE 0.7 mg/dL (0.6-1.0); POTASSIUM 4.1 mmol/L (3.5-5.1)
[2017-05-26 19:31] LABS: ALBUMIN 2.9 g/dL (3.4-5.0); ALBUMIN/GLOBULIN RATIO 0.7 (1.0-1.7); TOTAL BILIRUBIN 0.3 mg/dL (0.2-1.0); TOTAL PROTEIN 6.9 g/dL (6.4-8.2)
[2017-05-26] MEDS: IV NORMAL SALINE 1000ML BAG 1,000 ML IV SCH (20:01)
[2017-05-26] MEDS ORDERED: PIP/TAZO PER PHARMACY MC PRN (20:15)
[2017-05-26] MEDS ORDERED: PIPERACILLIN/TAZOBACTAM 3.375 GM in IV NORMAL SALINE 50ML 50 ML IV ONE (20:15)
[2017-05-26] MEDS ORDERED: ACETAMINOPHEN 325 MG TABLET. PO PRN (20:15)
[2017-05-26] MEDS ORDERED: ONDANSETRON PF 4 MG/2 ML VIAL. IV PRN (20:15)
[2017-05-26] MEDS ORDERED: VANCOMYCIN 1.25 GM in IV NORMAL SALINE 250ML 250 ML IV ONE (20:30)
[2017-05-26] MEDS: VANCOMYCIN PER PHARMACY MC PRN (20:51)
[2017-05-26 23:34] VITALS: BP 93/63
[2017-05-27] VITALS (13 sets, daily range): BP systolic 102–149; BP diastolic 36–58
[2017-05-27] MEDS: PIPERACILLIN/TAZOBACTAM 2.25 GM in IV NORMAL SALINE 50ML 50 ML IV SCH ×5 (00:59→23:20)
[2017-05-27] MEDS ORDERED: PNEUMOCOCCAL VAX SCREEN BY RX. MC PRN (02:15)
[2017-05-27] MEDS ORDERED: MULT-557 PO (03:26)
[2017-05-27] MEDS ORDERED: CARB1TAB22 PO (03:26)
[2017-05-27 05:44] LABS: BASO # 0.1 x10^3/uL (0.0-0.2); BASO % 1 % (0-3); EOS % 1 % (0-3); HEMATOCRIT 34.8 % (36.0-47.0); HEMOGLOBIN 11.8 g/dL (12.0-15.5); LYMPH % 17 % (24-48); MEAN CORPUSCULAR HEMOGLOBIN 30 pg (25-35); MEAN CORPUSCULAR HGB CONC 34 g/dL (31-37); MEAN CORPUSCULAR VOLUME 89 fL (79-100); MONO % 8 % (0-9); NEUT % 74 % (31-73); PLATELET COUNT 256 x10^3/uL (140-400); RED BLOOD COUNT 3.93 x10^6/uL (3.50-5.40); RED CELL DISTRIBUTION WIDTH 13.8 % (11.5-14.5); WHITE BLOOD COUNT 11.5 x10^3/uL (4.0-11.0)
[2017-05-27 05:46] LABS: CALCIUM 8.9 mg/dL (8.5-10.1); CREATININE 0.7 mg/dL (0.6-1.0); POTASSIUM 3.8 mmol/L (3.5-5.1)
[2017-05-27] MEDS: IV NORMAL SALINE 1000ML BAG 1,000 ML IV SCH ×2 (06:01→21:03)
--- NOTE | 2017-05-27 08:35 | RAD ---
Pelvis with left hip, 3 views, 05/26/2017: History: Decubitus ulcer The bony structures are demineralized. No fracture or destructive bony lesion is seen. The sacrum, coccyx and upper pelvis are obscured by overlying bowel content. The hip joints are well-maintained with only minimal marginal spurring. IMPRESSION: 1. Demineralization. 2. No acute bony abnormality is detected.
[2017-05-27] MEDS: VANCOMYCIN PER PHARMACY MC PRN ×2 (11:33→15:57)
--- NOTE | 2017-05-27 12:25 | PDOC2 ---
GER HERNANDEZ FILLER AND TRIMMER 05/27/17 1225: CONSULT Date of Consult Date of Consult DATE: 05/27/17 TIME: 12:19 Reason for Consult Reason for Consult: infected decub Referring Physician Referring Physician: ER Identification/Chief Complaint Chief Complaint decub Problems: Source Source: Chart review, Patient History of Present Illness Reason for Visit: Here with decub ulcer. She is not sure how long it has been there, at least a few weeks. It is painful at times She is wheelchair bound, lives with her brother and has a home health nurse at sees her. Per ER records started as a diaper rash. History of Parkinson Past Medical History Cardiovascular: CHF, HTN Pulmonary: No pertinent hx CENTRAL NERVOUS SYSTEM: Other (parkinsons ) Hepatobiliary: No pertinent hx Psych: Anxiety, Addictions, Schizophrenia Musculoskeletal: low back pain Renal/: Other (chronic salas cath) Past Surgical History Past Surgical History: Hysterectomy Family History Family History: No Significant Social History No ALCOHOL: none Drugs: None Lives: with Family Domestic Violence: Neg Current Problem List Problem List Problems Medical Problems: (1) Infected decubitus ulcer Status: Acute (2) Moderate protein malnutrition Status: Acute (3) Parkinsons disease Status: Acute Current Medications Current Medications Current Medications Sodium Chloride 1,000 ml @ 100 mls/hr Q10H IV Last administered on 05/26/17t 19:20; Start 05/26/17 at 19:05; Stop 05/27/17 at 05:04; Status DC Ondansetron HCl (Zofran) 4 mg PRN Q8HRS PRN IV NAUSEA/VOMITING; Start at 20:15; Stop 05/27/17 at 20:14 Sodium Chloride 1,000 ml @ 100 mls/hr Q10H IV Last administered on 05/27/17t 06:01; Start 05/26/17 at 20:01; Stop 05/27/17 at 20:00 Acetaminophen (Tylenol) 650 mg PRN Q4HRS PRN PO FEVER; Start 05/26/17 at 20:15 ; Stop 05/27/17 at 20:14 Piperacillin Sod/ Tazobactam Sod (Zosyn Per Pharmacy) 1 each PRN DAILY PRN MC SEE COMMENTS; Start 05/26/17 at 20:15 Vancomycin HCl (Vanco Per Pharmacy) 1 each PRN DAILY PRN MC SEE COMMENTS Last administered on 05/27/17 11:33; Start 05/26/17 at 20:15 Vancomycin HCl 1.25 gm/Sodium Chloride 250 ml @ 166.667 mls/hr 1X ONCE IV Last administered on 05/26/17 22:08; Start 05/26/17 at 20:30; Stop 05/26/17 at 21:59; Status DC Piperacillin Sod/ Tazobactam Sod 3.375 gm/Sodium Chloride 50 ml @ 100 mls/hr 1X ONCE IV Last administered on 05/26/17 20:23; Start 05/26/17 at 20:15; Stop 05/26/17 at 20:44; Status DC Piperacillin Sod/ Tazobactam Sod 2.25 gm/Sodium Chloride 50 ml @ 100 mls/hr Q6HRS IV Last administered on 05/27/17 12:09; Start 05/27/17 at 00:00 Vancomycin HCl 750 mg/Sodium Chloride 250 ml @ 250 mls/hr Q24H IV ; Start at 21:00 Vancomycin HCl 1 each 1X ONCE MC ; Start 05/28/17 at 20:30; Stop 05/28/17 at 20:31 Pneumococcal Polyvalent Vaccine (Do NOT chart on this placeholder) 1 each PRN DAILY PRN MC DATE RECEIVED UNKNOWN; Start 05/27/17 at 02:15; Status Cancel Active Scripts Active Reported Multi-Day Plus Iron Tablet (Multivitamin/Iron/Folic Acid) 1 Each Tablet 1 Each PO Carbidopa-Levodopa 25-100 Tab (Carbidopa/Levodopa) 1 Each Tablet 1 Each PO BID Vitamin D3 (Cholecalciferol (Vitamin D3)) 1,000 Unit Tablet 1,000 Unit PO DAILY Furosemide 20 Mg Tablet 20 Mg PO DAILY Atenolol 50 Mg Tablet 50 Mg PO DAILY Olanzapine 5 Mg Tablet 5 Mg PO DAILY Allergies Allergies: Coded Allergies: No Known Drug Allergies (Unverified , 11/19/16) ROS General: No: Chills, Other (fevers ) PSYCHOLOGICAL ROS: No: Anxiety, Depression Eyes: No Blurry vision, No Double vision HEENT: No: Heacaches, Sore Throat Hematological and Lymphatic: No: Bleeding Problems, Blood Clots Respiratory: No: Cough, Shortness of breath Cardiovascular: No Chest Pain, No Palpitations Gastrointestinal: No Nausea, No Vomiting, No Abdominal Pain Genitourinary: YES Other (chronic salas) Musculoskeletal: Yes Joint Pain, Yes Muscular Weakness Neurological: Yes Impaired Coord/balance, No Confusion Skin: Yes Other (see hpi) Physical Exam General: Alert, Oriented X3, Cooperative, No acute distress HEENT: PERRLA, Mucous membr. moist/pink Lungs: Clear to auscultation, Normal air movement Heart: Regular rate, Normal S1, Normal S2, No murmurs Abdomen: Soft, No tenderness Extremities: Other (contracted extremities ) Skin: Other (left buttock decub, escahr, boggy central portion, odorous ) Vitals VITALS Vital Signs Date Time Temp Pulse Resp B/P (MAP) Pulse Ox O2 Delivery O2 Flow Rate FiO2 05/27/17 11:00 98.2 68 16 102/39 (60) 94 Room Air 98.2 Labs Labs Laboratory Tests Test 05/26/17 17:50 05/27/17 04:35 White Blood Count 11.0 x10^3/uL (4.0-11.0) 11.5 x10^3/uL (4.0-11.0) Red Blood Count 4.10 x10^6/uL (3.50-5.40) 3.93 x10^6/uL (3.50-5.40) Hemoglobin 12.5 g/dL (12.0-15.5) 11.8 g/dL (12.0-15.5) Hematocrit 36.6 % (36.0-47.0) 34.8 % (36.0-47.0) Mean Corpuscular Volume 89 fL (79-100) 89 fL (79-100) Mean Corpuscular Hemoglobin 30 pg (25-35) 30 pg (25-35) Mean Corpuscular Hemoglobin Concent 34 g/dL (31-37) 34 g/dL (31-37) Red Cell Distribution Width 13.9 % (11.5-14.5) 13.8 % (11.5-14.5) Platelet Count 277 x10^3/uL (140-400) 256 x10^3/uL (140-400) Neutrophils (%) (Auto) 83 % (31-73) 74 % (31-73) Lymphocytes (%) (Auto) 12 % (24-48) 17 % (24-48) Monocytes (%) (Auto) 5 % (0-9) 8 % (0-9) Eosinophils (%) (Auto) 0 % (0-3) 1 % (0-3) Basophils (%) (Auto) 1 % (0-3) 1 % (0-3) Neutrophils # (Auto) 9.1 x10^3uL (1.8-7.7) 8.5 x10^3uL (1.8-7.7) Lymphocytes # (Auto) 1.3 x10^3/uL (1.0-4.8) 2.0 x10^3/uL (1.0-4.8) Monocytes # (Auto) 0.6 x10^3/uL (0.0-1.1) 0.9 x10^3/uL (0.0-1.1) Eosinophils # (Auto) 0.0 x10^3/uL (0.0-0.7) 0.1 x10^3/uL (0.0-0.7) Basophils # (Auto) 0.1 x10^3/uL (0.0-0.2) 0.1 x10^3/uL (0.0-0.2) Urine Collection Type Unknown Urine Color Yellow Urine Clarity Clear Urine pH 6.5 Urine Specific [place] <=1.005 Urine Protein Negative mg/dL (NEG-TRACE) Urine Glucose (UA) Negative mg/dL (NEG) Urine Ketones (Stick) Negative mg/dL (NEG) Urine Blood Negative (NEG) Urine Nitrite Negative (NEG) Urine Bilirubin Negative (NEG) Urine Urobilinogen Dipstick 1.0 mg/dL (0.2 mg/dL) Urine Leukocyte Esterase Negative (NEG) Urine RBC 0 /HPF (0-2) Urine WBC 0 /HPF (0-4) Urine Squamous Epithelial Cells Occ /LPF Urine Bacteria 0 /HPF (0-FEW) Sodium Level 144 mmol/L (136-145) 143 mmol/L (136-145) Potassium Level 4.1 mmol/L (3.5-5.1) 3.8 mmol/L (3.5-5.1) Chloride Level 104 mmol/L (98-107) 107 mmol/L (98-107) Carbon Dioxide Level 33 mmol/L (21-32) 28 mmol/L (21-32) Anion Gap 7 (6-14) 8 (6-14) Blood Urea Nitrogen 13 mg/dL (7-20) 10 mg/dL (7-20) Creatinine 0.7 mg/dL (0.6-1.0) 0.7 mg/dL (0.6-1.0) Estimated GFR (Cockcroft-Gault) 82.0 82.0 BUN/Creatinine Ratio 19 (6-20) Glucose Level 152 mg/dL (70-99) 96 mg/dL (70-99) Calcium Level 9.6 mg/dL (8.5-10.1) 8.9 mg/dL (8.5-10.1) Total Bilirubin 0.3 mg/dL (0.2-1.0) Aspartate Amino Transf (AST/SGOT) 14 U/L (15-37) Alanine Aminotransferase (ALT/SGPT) 8 U/L (14-59) Alkaline Phosphatase 70 U/L (46-116) Total Protein 6.9 g/dL (6.4-8.2) Albumin 2.9 g/dL (3.4-5.0) Albumin/Globulin Ratio 0.7 (1.0-1.7) Laboratory Tests Test 05/26/17 17:50 05/27/17 04:35 White Blood Count 11.0 x10^3/uL (4.0-11.0) 11.5 x10^3/uL (4.0-11.0) Red Blood Count 4.10 x10^6/uL (3.50-5.40) 3.93 x10^6/uL (3.50-5.40) Hemoglobin 12.5 g/dL (12.0-15.5) 11.8 g/dL (12.0-15.5) Hematocrit 36.6 % (36.0-47.0) 34.8 % (36.0-47.0) Mean Corpuscular Volume 89 fL (79-100) 89 fL (79-100) Mean Corpuscular Hemoglobin 30 pg (25-35) 30 pg (25-35) Mean Corpuscular Hemoglobin Concent 34 g/dL (31-37) 34 g/dL (31-37) Red Cell Distribution Width 13.9 % (11.5-14.5) 13.8 % (11.5-14.5) Platelet Count 277 x10^3/uL (140-400) 256 x10^3/uL (140-400) Neutrophils (%) (Auto) 83 % (31-73) 74 % (31-73) Lymphocytes (%) (Auto) 12 % (24-48) 17 % (24-48) Monocytes (%) (Auto) 5 % (0-9) 8 % (0-9) Eosinophils (%) (Auto) 0 % (0-3) 1 % (0-3) Basophils (%) (Auto) 1 % (0-3) 1 % (0-3) Neutrophils # (Auto) 9.1 x10^3uL (1.8-7.7) 8.5 x10^3uL (1.8-7.7) Lymphocytes # (Auto) 1.3 x10^3/uL (1.0-4.8) 2.0 x10^3/uL (1.0-4.8) Monocytes # (Auto) 0.6 x10^3/uL (0.0-1.1) 0.9 x10^3/uL (0.0-1.1) Eosinophils # (Auto) 0.0 x10^3/uL (0.0-0.7) 0.1 x10^3/uL (0.0-0.7) Basophils # (Auto) 0.1 x10^3/uL (0.0-0.2) 0.1 x10^3/uL (0.0-0.2) Urine Collection Type Unknown Urine Color Yellow Urine Clarity Clear Urine pH 6.5 Urine Specific [place] <=1.005 Urine Protein Negative mg/dL (NEG-TRACE) Urine Glucose (UA) Negative mg/dL (NEG) Urine Ketones (Stick) Negative mg/dL (NEG) Urine Blood Negative (NEG) Urine Nitrite Negative (NEG) Urine Bilirubin Negative (NEG) Urine Urobilinogen Dipstick 1.0 mg/dL (0.2 mg/dL) Urine Leukocyte Esterase Negative (NEG) Urine RBC 0 /HPF (0-2) Urine WBC 0 /HPF (0-4) Urine Squamous Epithelial Cells Occ /LPF Urine Bacteria 0 /HPF (0-FEW) Sodium Level 144 mmol/L (136-145) 143 mmol/L (136-145) Potassium Level 4.1 mmol/L (3.5-5.1) 3.8 mmol/L (3.5-5.1) Chloride Level 104 mmol/L (98-107) 107 mmol/L (98-107) Carbon Dioxide Level 33 mmol/L (21-32) 28 mmol/L (21-32) Anion Gap 7 (6-14) 8 (6-14) Blood Urea Nitrogen 13 mg/dL (7-20) 10 mg/dL (7-20) Creatinine 0.7 mg/dL (0.6-1.0) 0.7 mg/dL (0.6-1.0) Estimated GFR (Cockcroft-Gault) 82.0 82.0 BUN/Creatinine Ratio 19 (6-20) Glucose Level 152 mg/dL (70-99) 96 mg/dL (70-99) Calcium Level 9.6 mg/dL (8.5-10.1) 8.9 mg/dL (8.5-10.1) Total Bilirubin 0.3 mg/dL (0.2-1.0) Aspartate Amino Transf (AST/SGOT) 14 U/L (15-37) Alanine Aminotransferase (ALT/SGPT) 8 U/L (14-59) Alkaline Phosphatase 70 U/L (46-116) Total Protein 6.9 g/dL (6.4-8.2) Albumin 2.9 g/dL (3.4-5.0) Albumin/Globulin Ratio 0.7 (1.0-1.7) Assessment/Plan Assessment/Plan left buttock decub--appears to need debridement, will d/w Dr Dang parkinsons, CHF, HTN, contractures, limited mobility BAKARI DANG MD 05/27/17 1519: CONSULT Allergies Allergies: Coded Allergies: No Known Drug Allergies (Unverified , 11/19/16) Assessment/Plan Assessment/Plan Patient seen and examined by me. She denies pain. Left buttock decubitus ulcer with necrotic eschar. Plan debridement. Agree with Vishal's assessment and plan. GER HERNANDEZ APRN May 27, 2017 12:25 BAKARI DANG MD May 27, 2017 15:19
[2017-05-27] MEDS: FUROSEMIDE 20 MG TABLET PO SCH (13:00)
[2017-05-27] MEDS: ATENOLOL 50 MG TABLET. PO SCH (13:00)
[2017-05-27] MEDS: CHOLECALCIFEROL (VITAMIN D3) 1,000 UNIT TABLET PO SCH (13:00)
[2017-05-27] MEDS: CARBIDOPA/LEVODOPA 25/100MG TABLET PO SCH ×2 (13:00→21:05)
[2017-05-27] MEDS: OLANZapine 5 MG TABLET PO SCH (13:00)
[2017-05-27] MEDS: MULTIVITAMIN with MINERAL TABLET. PO SCH (13:00)
--- NOTE | 2017-05-27 13:12 | HP ---
ADMIT DATE: 05/27/2017 CHIEF COMPLAINT: Infection of decubitus ulcers. HISTORY OF PRESENT ILLNESS: The patient is a 71-year-old woman living at home, who was brought in by EMS when home health found her with a significant ulcer on left buttock. Suspicion for infection was raised. The patient herself complains of minimal pain at this time. Denies any fevers or vomiting. Of note, the patient actually had been noted 2 weeks ago that she had some redness in the area and was being treated for a "diaper rash" by a brother who helps take care of her. Home health nurse, however, was concerned that bone was coming through the wound and recommended ER visit. PAST MEDICAL HISTORY: Parkinson's, anxiety, depression, hypertension, schizophrenia. She is status post PEG tube placement and removal secondary to now resolved dysphagia, probably related to Parkinson's. FAMILY HISTORY: Unknown. SOCIAL HISTORY: Lives at home. Family taking care of her. Drinks alcohol only rarely. No tobacco or other drugs. ALLERGIES: No known drug allergies. MEDICATIONS: MAR reconciled with home medications. REVIEW OF SYSTEMS: The patient has chronic tremors. Denies any significant pain in her buttocks, but does require frequent repositioning due to aches and pains. Denies any other symptoms in rest of organ system review. PHYSICAL EXAMINATION: VITAL SIGNS: From today show a blood pressure of 102/39, heart rate of 68, respiratory rate at 16. She is afebrile. GENERAL: This is a cachectic 71-year-old woman, awake, alert, in no acute distress. HEENT: Shows no scleral icterus. NECK: Supple. LUNGS: Clear. HEART: Regular rate and rhythm. ABDOMEN: Positive bowel sounds, soft, nontender. Buttocks with significant sacral ulcer, currently covered by bandage. EXTREMITIES: Show no edema. SKIN: Warm, soft and dry. LABORATORY DATA: CBC with a WBC of 11.5, hemoglobin 11.8, platelets of 256. Chemistries with a BUN and creatinine of 10 and 0.7, normal electrolytes, normal LFTs. Urine was negative for infectious symptoms. X-rays of the hip and pelvis shows demineralization, no acute bony abnormality detected. ASSESSMENT AND PLAN: The patient is a 71-year-old woman presenting with decubitus ulcer that appears infected. Surgical consult has been requested. We will get Infectious Disease involved as well. Wound care will be following. For her Parkinson's, she is on several medications. These will be continued. Her tremor is fairly strong at baseline and I suspect that she has further complications related to this as well. Historically, she apparently had dysphagia. We will monitor closely. For her high blood pressure, home medications will be continued. We will monitor vital signs adjustments as indicated. She is on Zyprexa for psychiatric issues. We will continue this as well. For prophylaxis, she will be started on Lovenox tomorrow assuming the surgical debridement will occur today. MADELEINE BOND MD DR: ALEC/nts JOB#: [id number] / [id number] VIANEY Acevedo NP MTDD
[2017-05-27] MEDS ORDERED: BUPIVACAINE-EPI 0.25%-1:200000 50 ML VIAL. ONE (14:34)
[2017-05-27] MEDS ORDERED: ONDANSETRON PF 4 MG/2 ML VIAL. IV PRN ×2 (14:45→15:30)
[2017-05-27] MEDS ORDERED: IV RINGERS,LACTATED 1000ML 1,000 ML IV SCH (15:18)
[2017-05-27] MEDS ORDERED: LIDOCAINE 2% PF Vial for OR 5 ML VIAL. ONE (15:18)
[2017-05-27] MEDS ORDERED: MIDAZOLAM HCL/PF 2 MG/2 ML VIAL. ONE (15:18)
[2017-05-27] MEDS ORDERED: PROPOFOL 20 ML IV ONE (15:18)
[2017-05-27] MEDS ORDERED: LIDOCAINE 1% PF 2 ML VIAL. ID PRN (15:30)
[2017-05-27] MEDS ORDERED: PROCHLORPERAZINE 10 MG/2 ML VIAL. IV PRN (15:30)
[2017-05-27] MEDS ORDERED: HYDROmorphone 2 MG/ML VIAL IV PRN (15:30)
[2017-05-27] MEDS ORDERED: fentaNYL PF VIAL 100 MCG/2 ML VIAL IV PRN ×2 (15:30)
[2017-05-27] MEDS ORDERED: MORPHINE SULFATE 2 MG/ML DISP.SYRIN. IV PRN (15:30)
--- NOTE | 2017-05-27 16:42 | PDOC4 ---
Operative Note Operative Note Date: 05/27/2017 Preoperative diagnosis: Decubitus ulcer left buttocks Postoperative diagnosis: Same Procedure: Sharp debridement Surgeon: Karson Specimen: None Dictation: Patient is a 71-year-old female who is bedridden and has developed a decubitus ulcer of the left buttocks with necrotic tissue. Procedure debridement was explained to the patient detail was benefits were also discussed including bleeding infection alternatives to this procedure also discussed with the patient seemed understanding gave both verbal and written consent have seated performed. Patient was taken to the operating room was left on her bed and the area on her left buttocks was wrapped and draped usual sterile fashion using Betadine solution. The decubitus ulcer was sharply debrided of the necrotic tissue which included skin and subcutaneous tissue down to fascia. There was slight bleeding and the wound was packed with iodoform Nu Gauze and dressed with island dressing. Patient tolerated procedure well was taken to recovery in stable condition all sponge instrument needle counts listed as correct estimated blood loss 5 mL. BAKARI DANG MD May 27, 2017 16:42
[2017-05-27] MEDS: VANCOMYCIN 750 MG in IV NORMAL SALINE 250ML 250 ML IV SCH (21:05)
[2017-05-28] VITALS (17 sets, daily range): BP systolic 78–152; BP diastolic 21–72
[2017-05-28] MEDS: MORPHINE SULFATE 2 MG/ML DISP.SYRIN. IV PRN (05:02)
[2017-05-28] MEDS: PIPERACILLIN/TAZOBACTAM 2.25 GM in IV NORMAL SALINE 50ML 50 ML IV SCH ×3 (06:04→17:59)
[2017-05-28 07:15] LABS: BASO # 0.1 x10^3/uL (0.0-0.2); BASO % 1 % (0-3); EOS % 0 % (0-3); HEMATOCRIT 31.4 % (36.0-47.0); HEMOGLOBIN 10.7 g/dL (12.0-15.5); LYMPH # 2.1 x10^3/uL (1.0-4.8); LYMPH % 19 % (24-48); MEAN CORPUSCULAR HEMOGLOBIN 30 pg (25-35); MEAN CORPUSCULAR HGB CONC 34 g/dL (31-37); MEAN CORPUSCULAR VOLUME 88 fL (79-100); MONO % 8 % (0-9); NEUT % 73 % (31-73); PLATELET COUNT 233 x10^3/uL (140-400); RED BLOOD COUNT 3.57 x10^6/uL (3.50-5.40); RED CELL DISTRIBUTION WIDTH 13.6 % (11.5-14.5)
[2017-05-28 07:19] LABS: CALCIUM 8.6 mg/dL (8.5-10.1); CREATININE 0.8 mg/dL (0.6-1.0); GFR 70.3; POTASSIUM 3.7 mmol/L (3.5-5.1)
[2017-05-28] MEDS ORDERED: IV NORMAL SALINE 500ML BAG 500 ML IV ONE (08:00)
[2017-05-28] MEDS: ATENOLOL 50 MG TABLET. PO SCH (08:19)
[2017-05-28] MEDS: FUROSEMIDE 20 MG TABLET PO SCH (08:19)
[2017-05-28] MEDS: IV NORMAL SALINE 1000ML BAG 1,000 ML IV SCH ×2 (08:19→20:48)
[2017-05-28] MEDS: CHOLECALCIFEROL (VITAMIN D3) 1,000 UNIT TABLET PO SCH (09:00)
[2017-05-28] MEDS: MULTIVITAMIN with MINERAL TABLET. PO SCH (09:00)
[2017-05-28] MEDS ORDERED: NOREPINEPHRIN PREMIX 250 ML IV PRN (09:45)
--- NOTE | 2017-05-28 10:06 | PDOC ---
PROGRESS NOTES Chief Complaint Chief Complaint decub wound s/p debridement 05/27 HYpotensive shock needing pressors PAST MEDICAL HISTORY: Parkinson's, anxiety, depression, hypertension, schizophrenia. She is status post PEG tube placement and removal secondary to now resolved dysphagia, probably related to Parkinson's. History of Present Illness History of Present Illness CAlled stat by RN today to come bedside bec of hypotension recalcitrant to IVF 500cc bolus ordered by colleague HAd 100cc NS running overnight BY reports she came from home, was talking NOw, she is non verbal to me, shaking, HYPOTENSIVE systolic 70s Also, bloody urine NOT present on admit NOt on any DVT ppx currently CBC BMP today otherwise ok PLAN: OK to t.o ICU Levophed standby Check echo Involve palliative re goals of care and code status - right now is full code Stop atenolol I kept the lasix 20 for now, hold if systolic less than 110 Will consider COnsult cards re hypotension Bladder rirrigation re hematuria Recheck UA today Seen at bedside with RN and DENTAL EQUIPMENT REPAIRER CC 30 Vitals Vitals Vital Signs Date Time Temp Pulse Resp B/P (MAP) Pulse Ox O2 Delivery O2 Flow Rate FiO2 05/28/17 08:19 62 91/48 05/28/17 08:00 Room Air 05/28/17 07:54 16 05/28/17 07:49 99.4 94 99.4 05/27/17 16:41 10 Physical Exam General: Alert, Oriented X3, Cooperative, No acute distress Heart: Regular rate, Normal S1, Normal S2, No murmurs Lungs: Clear, Other Abdomen: Soft, No tenderness Extremities: Other (contracted extremities ) Skin: Other (left buttock decub, escahr, boggy central portion, odorous ) Labs LABS Laboratory Tests Test 05/28/17 07:00 White Blood Count 11.0 x10^3/uL (4.0-11.0) Red Blood Count 3.57 x10^6/uL (3.50-5.40) Hemoglobin 10.7 g/dL (12.0-15.5) Hematocrit 31.4 % (36.0-47.0) Mean Corpuscular Volume 88 fL (79-100) Mean Corpuscular Hemoglobin 30 pg (25-35) Mean Corpuscular Hemoglobin Concent 34 g/dL (31-37) Red Cell Distribution Width 13.6 % (11.5-14.5) Platelet Count 233 x10^3/uL (140-400) Neutrophils (%) (Auto) 73 % (31-73) Lymphocytes (%) (Auto) 19 % (24-48) Monocytes (%) (Auto) 8 % (0-9) Eosinophils (%) (Auto) 0 % (0-3) Basophils (%) (Auto) 1 % (0-3) Neutrophils # (Auto) 8.0 x10^3uL (1.8-7.7) Lymphocytes # (Auto) 2.1 x10^3/uL (1.0-4.8) Monocytes # (Auto) 0.8 x10^3/uL (0.0-1.1) Eosinophils # (Auto) 0.0 x10^3/uL (0.0-0.7) Basophils # (Auto) 0.1 x10^3/uL (0.0-0.2) Sodium Level 144 mmol/L (136-145) Potassium Level 3.7 mmol/L (3.5-5.1) Chloride Level 109 mmol/L (98-107) Carbon Dioxide Level 26 mmol/L (21-32) Anion Gap 9 (6-14) Blood Urea Nitrogen 13 mg/dL (7-20) Creatinine 0.8 mg/dL (0.6-1.0) Estimated GFR (Cockcroft-Gault) 70.3 Glucose Level 73 mg/dL (70-99) Calcium Level 8.6 mg/dL (8.5-10.1) Review of Systems Review of Systems non verbal Assessment and Plan Assessmemt and Plan Problems Medical Problems: (1) Infected decubitus ulcer Status: Acute (2) Moderate protein malnutrition Status: Acute (3) Parkinsons disease Status: Acute Problems: Comment Review of Relevant I have reviewed the following items clovis (where applicable) has been applied. Labs Laboratory Tests Test 05/26/17 17:50 05/27/17 04:35 05/28/17 07:00 White Blood Count 11.0 x10^3/uL (4.0-11.0) 11.5 x10^3/uL (4.0-11.0) 11.0 x10^3/uL (4.0-11.0) Red Blood Count 4.10 x10^6/uL (3.50-5.40) 3.93 x10^6/uL (3.50-5.40) 3.57 x10^6/uL (3.50-5.40) Hemoglobin 12.5 g/dL (12.0-15.5) 11.8 g/dL (12.0-15.5) 10.7 g/dL (12.0-15.5) Hematocrit 36.6 % (36.0-47.0) 34.8 % (36.0-47.0) 31.4 % (36.0-47.0) Mean Corpuscular Volume 89 fL (79-100) 89 fL (79-100) 88 fL (79-100) Mean Corpuscular Hemoglobin 30 pg (25-35) 30 pg (25-35) 30 pg (25-35) Mean Corpuscular Hemoglobin Concent 34 g/dL (31-37) 34 g/dL (31-37) 34 g/dL (31-37) Red Cell Distribution Width 13.9 % (11.5-14.5) 13.8 % (11.5-14.5) 13.6 % (11.5-14.5) Platelet Count 277 x10^3/uL (140-400) 256 x10^3/uL (140-400) 233 x10^3/uL (140-400) Neutrophils (%) (Auto) 83 % (31-73) 74 % (31-73) 73 % (31-73) Lymphocytes (%) (Auto) 12 % (24-48) 17 % (24-48) 19 % (24-48) Monocytes (%) (Auto) 5 % (0-9) 8 % (0-9) 8 % (0-9) Eosinophils (%) (Auto) 0 % (0-3) 1 % (0-3) 0 % (0-3) Basophils (%) (Auto) 1 % (0-3) 1 % (0-3) 1 % (0-3) Neutrophils # (Auto) 9.1 x10^3uL (1.8-7.7) 8.5 x10^3uL (1.8-7.7) 8.0 x10^3uL (1.8-7.7) Lymphocytes # (Auto) 1.3 x10^3/uL (1.0-4.8) 2.0 x10^3/uL (1.0-4.8) 2.1 x10^3/uL (1.0-4.8) Monocytes # (Auto) 0.6 x10^3/uL (0.0-1.1) 0.9 x10^3/uL (0.0-1.1) 0.8 x10^3/uL (0.0-1.1) Eosinophils # (Auto) 0.0 x10^3/uL (0.0-0.7) 0.1 x10^3/uL (0.0-0.7) 0.0 x10^3/uL (0.0-0.7) Basophils # (Auto) 0.1 x10^3/uL (0.0-0.2) 0.1 x10^3/uL (0.0-0.2) 0.1 x10^3/uL (0.0-0.2) Urine Collection Type Unknown Urine Color Yellow Urine Clarity Clear Urine pH 6.5 Urine Specific [place] <=1.005 Urine Protein Negative mg/dL (NEG-TRACE) Urine Glucose (UA) Negative mg/dL (NEG) Urine Ketones (Stick) Negative mg/dL (NEG) Urine Blood Negative (NEG) Urine Nitrite Negative (NEG) Urine Bilirubin Negative (NEG) Urine Urobilinogen Dipstick 1.0 mg/dL (0.2 mg/dL) Urine Leukocyte Esterase Negative (NEG) Urine RBC 0 /HPF (0-2) Urine WBC 0 /HPF (0-4) Urine Squamous Epithelial Cells Occ /LPF Urine Bacteria 0 /HPF (0-FEW) Sodium Level 144 mmol/L (136-145) 143 mmol/L (136-145) 144 mmol/L (136-145) Potassium Level 4.1 mmol/L (3.5-5.1) 3.8 mmol/L (3.5-5.1) 3.7 mmol/L (3.5-5.1) Chloride Level 104 mmol/L (98-107) 107 mmol/L (98-107) 109 mmol/L (98-107) Carbon Dioxide Level 33 mmol/L (21-32) 28 mmol/L (21-32) 26 mmol/L (21-32) Anion Gap 7 (6-14) 8 (6-14) 9 (6-14) Blood Urea Nitrogen 13 mg/dL (7-20) 10 mg/dL (7-20) 13 mg/dL (7-20) Creatinine 0.7 mg/dL (0.6-1.0) 0.7 mg/dL (0.6-1.0) 0.8 mg/dL (0.6-1.0) Estimated GFR (Cockcroft-Gault) 82.0 82.0 70.3 BUN/Creatinine Ratio 19 (6-20) Glucose Level 152 mg/dL (70-99) 96 mg/dL (70-99) 73 mg/dL (70-99) Calcium Level 9.6 mg/dL (8.5-10.1) 8.9 mg/dL (8.5-10.1) 8.6 mg/dL (8.5-10.1) Total Bilirubin 0.3 mg/dL (0.2-1.0) Aspartate Amino Transf (AST/SGOT) 14 U/L (15-37) Alanine Aminotransferase (ALT/SGPT) 8 U/L (14-59) Alkaline Phosphatase 70 U/L (46-116) Total Protein 6.9 g/dL (6.4-8.2) Albumin 2.9 g/dL (3.4-5.0) Albumin/Globulin Ratio 0.7 (1.0-1.7) Laboratory Tests Test 05/28/17 07:00 White Blood Count 11.0 x10^3/uL (4.0-11.0) Red Blood Count 3.57 x10^6/uL (3.50-5.40) Hemoglobin 10.7 g/dL (12.0-15.5) Hematocrit 31.4 % (36.0-47.0) Mean Corpuscular Volume 88 fL (79-100) Mean Corpuscular Hemoglobin 30 pg (25-35) Mean Corpuscular Hemoglobin Concent 34 g/dL (31-37) Red Cell Distribution Width 13.6 % (11.5-14.5) Platelet Count 233 x10^3/uL (140-400) Neutrophils (%) (Auto) 73 % (31-73) Lymphocytes (%) (Auto) 19 % (24-48) Monocytes (%) (Auto) 8 % (0-9) Eosinophils (%) (Auto) 0 % (0-3) Basophils (%) (Auto) 1 % (0-3) Neutrophils # (Auto) 8.0 x10^3uL (1.8-7.7) Lymphocytes # (Auto) 2.1 x10^3/uL (1.0-4.8) Monocytes # (Auto) 0.8 x10^3/uL (0.0-1.1) Eosinophils # (Auto) 0.0 x10^3/uL (0.0-0.7) Basophils # (Auto) 0.1 x10^3/uL (0.0-0.2) Sodium Level 144 mmol/L (136-145) Potassium Level 3.7 mmol/L (3.5-5.1) Chloride Level 109 mmol/L (98-107) Carbon Dioxide Level 26 mmol/L (21-32) Anion Gap 9 (6-14) Blood Urea Nitrogen 13 mg/dL (7-20) Creatinine 0.8 mg/dL (0.6-1.0) Estimated GFR (Cockcroft-Gault) 70.3 Glucose Level 73 mg/dL (70-99) Calcium Level 8.6 mg/dL (8.5-10.1) Microbiology 05/27/17 Gram Stain - Final, Complete Medications Current Medications Sodium Chloride 1,000 ml @ 100 mls/hr Q10H IV Last administered on 05/26/17 19:20; Start 05/26/17 at 19:05; Stop 05/27/17 at 05:04; Status DC Ondansetron HCl (Zofran) 4 mg PRN Q8HRS PRN IV NAUSEA/VOMITING; Start at 20:15; Stop 05/27/17 at 20:14; Status DC Sodium Chloride 1,000 ml @ 100 mls/hr Q10H IV Last administered on 05/27/17 06:01; Start 05/26/17 at 20:01; Stop 05/27/17 at 20:00; Status DC Acetaminophen (Tylenol) 650 mg PRN Q4HRS PRN PO FEVER; Start 05/26/17 at 20:15 ; Stop 05/27/17 at 20:14; Status DC Piperacillin Sod/ Tazobactam Sod (Zosyn Per Pharmacy) 1 each PRN DAILY PRN MC SEE COMMENTS; Start 05/26/17 at 20:15 Vancomycin HCl (Vanco Per Pharmacy) 1 each PRN DAILY PRN MC SEE COMMENTS Last administered on 05/27/17 15:57; Start 05/26/17 at 20:15 Vancomycin HCl 1.25 gm/Sodium Chloride 250 ml @ 166.667 mls/hr 1X ONCE IV Last administered on 05/26/17 22:08; Start 05/26/17 at 20:30; Stop 05/26/17 at 21:59; Status DC Piperacillin Sod/ Tazobactam Sod 3.375 gm/Sodium Chloride 50 ml @ 100 mls/hr 1X ONCE IV Last administered on 05/26/17 20:23; Start 05/26/17 at 20:15; Stop 05/26/17 at 20:44; Status DC Piperacillin Sod/ Tazobactam Sod 2.25 gm/Sodium Chloride 50 ml @ 100 mls/hr Q6HRS IV Last administered on 05/28/17 06:04; Start 05/27/17 at 00:00 Vancomycin HCl 750 mg/Sodium Chloride 250 ml @ 250 mls/hr Q24H IV Last administered on 05/27/17 21:05; Start 05/27/17 at 21:00 Vancomycin HCl 1 each 1X ONCE MC ; Start 05/28/17 at 20:30; Stop 05/28/17 at 20:31 Pneumococcal Polyvalent Vaccine (Do NOT chart on this placeholder) 1 each PRN DAILY PRN MC DATE RECEIVED UNKNOWN; Start 05/27/17 at 02:15; Status Cancel Atenolol (Tenormin) 50 mg DAILY PO ; Start 05/27/17 at 13:00 Carbidopa/Levodopa (Sinemet 25/100) 1 tab BID PO Last administered on 21:05; Start 05/27/17 at 13:00 Vitamin D (Vitamin D3) 1,000 unit DAILY PO ; Start 05/27/17 at 13:00 Furosemide (Lasix) 20 mg DAILY PO ; Start 05/27/17 at 13:00 Olanzapine (ZyPREXA) 5 mg DAILY PO ; Start 05/27/17 at 13:00 Multivitamins (Thera M Plus) 1 tab DAILY PO ; Start 05/27/17 at 13:00 Ondansetron HCl (Zofran) 4 mg PRN Q6HRS PRN IV NAUSEA/VOMITING; Start at 14:45 Ondansetron HCl (Zofran) 4 mg PRN Q6HRS PRN IV NAUSEA/VOMITING; Start at 15:30; Stop 05/28/17 at 15:29 Fentanyl Citrate (Fentanyl 2ml Vial) 25 mcg PRN Q5MIN PRN IV MILD PAIN; Start 05/27/17 at 15:30; Stop 05/28/17 at 15:29 Fentanyl Citrate (Fentanyl 2ml Vial) 50 mcg PRN Q5MIN PRN IV MODERATE PAIN; Start 05/27/17 at 15:30; Stop 05/28/17 at 15:29 Morphine Sulfate 1 mg PRN Q10MIN PRN IV SEVERE PAIN; Start 05/27/17 at 15:30; Stop 05/28/17 at 15:29 Ringer's Solution 1,000 ml @ 0 mls/hr Q0M IV Last administered on 05/27/17t 15:28; Start 05/27/17 at 15:18; Stop 05/28/17 at 03:17; Status DC Lidocaine HCl (Xylocaine-Mpf 1% Vial) 2 ml PRN 1X PRN ID PRIOR TO IV START; Start 05/27/17 at 15:30; Stop 05/28/17 at 15:29 Hydromorphone HCl (Dilaudid) 0.5 mg PRN Q10MIN PRN IV SEV PAIN, Second choice; Start 05/27/17 at 15:30; Stop 05/28/17 at 15:29 Prochlorperazine Edisylate (Compazine) 5 mg PACU PRN PRN IV NAUSEA, MRX1; Start 05/27/17 at 15:30; Stop 05/28/17 at 15:29 Midazolam HCl (Versed) 2 mg STK-MED ONCE .ROUTE ; Start 05/27/17 at 15:18; Stop 05/27/17 at 15:19; Status DC Propofol 20 ml @ As Directed STK-MED ONCE IV ; Start 05/27/17 at 15:18; Stop 05/27/17 at 15:19; Status DC Lidocaine HCl (Lidocaine Pf 2% Vial) 5 ml STK-MED ONCE .ROUTE ; Start 05/27/17 at 15:18; Stop 05/27/17 at 15:19; Status DC Bupivacaine HCl/ Epinephrine Bitart (Marcaine-Epi 0.25%-1:[id number]) 50 ml STK-MED ONCE .ROUTE ; Start 05/27/17 at 14:34; Stop 05/27/17 at 15:34; Status DC Morphine Sulfate 2 mg PRN Q2HR PRN IV SEVERE PAIN Last administered on 05:02; Start 05/28/17 at 04:45 Oxycodone/ Acetaminophen (Percocet 5/325) 1 tab PRN Q6HRS PRN PO SEVERE PAIN; Start 05/28/17 at 04:45 Sodium Chloride 500 ml @ 500 mls/hr 1X ONCE IV Last administered on 08:00; Start 05/28/17 at 08:00; Stop 05/28/17 at 08:59; Status DC Sodium Chloride 1,000 ml @ 100 mls/hr Q10H IV Last administered on 05/28/17 08:19; Start 05/28/17 at 09:00 Norepinephrine Bitartrate 250 ml @ 0 mls/hr CONT PRN IV SEE I/O RECORD; Start 05/28/17 at 09:45 Active Scripts Active Reported Multi-Day Plus Iron Tablet (Multivitamin/Iron/Folic Acid) 1 Each Tablet 1 Each PO Carbidopa-Levodopa 25-100 Tab (Carbidopa/Levodopa) 1 Each Tablet 1 Each PO BID Vitamin D3 (Cholecalciferol (Vitamin D3)) 1,000 Unit Tablet 1,000 Unit PO DAILY Furosemide 20 Mg Tablet 20 Mg PO DAILY Atenolol 50 Mg Tablet 50 Mg PO DAILY Olanzapine 5 Mg Tablet 5 Mg PO DAILY Vitals/I & O Vital Sign - Last 24 Hours 05/27/17 05/27/17 05/27/17 05/27/17 11:00 13:00 15:05 16:41 Temp 98.2 99.8 98.2 99.8 Pulse 68 68 77 Resp 16 33 B/P (MAP) 102/39 (60) 102/39 118/56 Pulse Ox 94 95 O2 Delivery Room Air Room Air Mask O2 Flow Rate 10 05/27/17 05/27/17 05/27/17 05/27/17 16:41 16:56 17:11 17:26 Temp 100. 100.0 Pulse 80 80 82 86 Resp 14 16 16 16 B/P (MAP) 123/53 125/68 156/69 138/74 Pulse Ox 98 95 97 95 O2 Delivery Simple Mask Room Air Room Air Room Air O2 Flow Rate 05/27/17 05/27/17 05/27/17 05/27/17 18:05 18:15 18:30 18:45 Pulse 89 78 92 85 B/P (MAP) 113/51 (71) 104/49 (67) 140/58 (85) 114/48 (70) Pulse Ox 92 90 91 91 O2 Delivery Room Air Room Air Room Air Room Air 05/27/17 05/27/17 05/27/17 05/27/17 19:42 19:49 19:55 20:59 Temp 99.0 99.0 Pulse 88 88 98 Resp 16 16 B/P (MAP) 123/53 (76) 108/44 (65) 149/53 (85) Pulse Ox 92 90 93 O2 Delivery Room Air Room Air Room Air Room Air 05/27/17 05/27/17 05/28/17 05/28/17 21:52 23:09 03:26 07:49 Temp 98.0 98.6 99.4 98.0 98.6 99.4 Pulse 75 66 67 43 Resp 20 16 18 16 B/P (MAP) 114/55 (74) 103/49 (67) 124/46 (72) 78/21 (40) Pulse Ox 95 95 96 94 O2 Delivery Room Air Room Air Room Air Room Air 05/28/17 05/28/17 05/28/17 07:54 08:00 08:19 Pulse 62 62 Resp 16 B/P (MAP) 91/48 (62) 91/48 O2 Delivery Room Air Room Air Nutrition Consultation Dietary Evaluation: Recommendations by RD: Increase Calorie Intake, Protein supplementation Comments: REC adv to regular diet when able REC [place] with all meals to aid in wound healing continue mvi and vit c to aid w/ wound healing per wound protocal Expected Outcomes/Goals: to meet > 75% est nutr needs Interpretation of weight loss: >10% in 6 months Malnutrition Findings: Body Fat Depletion (Non Severe: Mild Depletion Weight Status: Appropriate TERMULO,FARZANEH Y MD May 28, 2017 10:06
--- NOTE | 2017-05-28 11:32 | PDOC ---
Infectious Disease Note Vital Sign Vital Signs Vital Signs Date Time Temp Pulse Resp B/P (MAP) Pulse Ox O2 Delivery O2 Flow Rate FiO2 05/28/17 10:15 99.3 73 18 98/46 (63) 94 Room Air 99.3 05/27/17 16:41 10 Labs Lab Laboratory Tests Test 05/28/17 07:00 05/28/17 09:55 White Blood Count 11.0 x10^3/uL (4.0-11.0) Red Blood Count 3.57 x10^6/uL (3.50-5.40) Hemoglobin 10.7 g/dL (12.0-15.5) Hematocrit 31.4 % (36.0-47.0) Mean Corpuscular Volume 88 fL (79-100) Mean Corpuscular Hemoglobin 30 pg (25-35) Mean Corpuscular Hemoglobin Concent 34 g/dL (31-37) Red Cell Distribution Width 13.6 % (11.5-14.5) Platelet Count 233 x10^3/uL (140-400) Neutrophils (%) (Auto) 73 % (31-73) Lymphocytes (%) (Auto) 19 % (24-48) Monocytes (%) (Auto) 8 % (0-9) Eosinophils (%) (Auto) 0 % (0-3) Basophils (%) (Auto) 1 % (0-3) Neutrophils # (Auto) 8.0 x10^3uL (1.8-7.7) Lymphocytes # (Auto) 2.1 x10^3/uL (1.0-4.8) Monocytes # (Auto) 0.8 x10^3/uL (0.0-1.1) Eosinophils # (Auto) 0.0 x10^3/uL (0.0-0.7) Basophils # (Auto) 0.1 x10^3/uL (0.0-0.2) Sodium Level 144 mmol/L (136-145) Potassium Level 3.7 mmol/L (3.5-5.1) Chloride Level 109 mmol/L (98-107) Carbon Dioxide Level 26 mmol/L (21-32) Anion Gap 9 (6-14) Blood Urea Nitrogen 13 mg/dL (7-20) Creatinine 0.8 mg/dL (0.6-1.0) Estimated GFR (Cockcroft-Gault) 70.3 Glucose Level 73 mg/dL (70-99) Calcium Level 8.6 mg/dL (8.5-10.1) Lactic Acid Level 0.8 mmol/L (0.4-2.0) Objective Assessment ? Fever - post-op Decubitus ulcer w/ necrotic tissue of left buttocks s/p debridement down to fascia, 05/27. Hypotension, responsive to IVF boluses so far Parkinson's w/ tardive dyskinesia, mostly chair bound ? hx C. diff 2016. soft BM earlier Chronic salas - no sign of infection Plan Plan of Care vanc and Zosyn (CrCl 38) BC Monitor WBC, renal function and temp Local wound care No need to change salas D/w brother Pavan Thank you [phone] Attending Co-Sign Attending Co-Sign The patient was seen and interviewed as well as examined at the bedside. The chart was reviewed. The case was discussed. Agree with the plan of care. SULAIMAN COYLE APRN May 28, 2017 11:32 OKSANA GORE MD May 28, 2017 13:53
[2017-05-28] MEDS: CARBIDOPA/LEVODOPA 25/100MG TABLET PO SCH ×2 (12:40→20:47)
[2017-05-28] MEDS: OLANZapine 5 MG TABLET PO SCH (12:40)
[2017-05-28] MEDS ORDERED: IV NORMAL SALINE 1000ML BAG 1,000 ML IV SCH (12:45)
--- NOTE | 2017-05-28 13:11 | PDOC ---
SURGICAL PROGRESS NOTE Subjective had some hypotension, lethargy this AM--improved now sitting up eating breakfast some bloody drainage from wound Vital Signs Vital Signs Date Time Temp Pulse Resp B/P (MAP) Pulse Ox O2 Delivery O2 Flow Rate FiO2 05/28/17 11:15 99.4 88 18 94/47 (63) 94 Room Air 99.4 05/27/17 16:41 10 I&O Intake and Output 05/29/17 07:00 Intake Total 1550 ml Balance 1550 ml IV Total 1550 ml General: Alert, Cooperative Abdomen: Soft Labs Laboratory Tests Test 05/26/17 17:50 05/27/17 04:35 05/28/17 07:00 05/28/17 09:55 White Blood Count 11.0 x10^3/uL (4.0-11.0) 11.5 x10^3/uL (4.0-11.0) 11.0 x10^3/uL (4.0-11.0) Red Blood Count 4.10 x10^6/uL (3.50-5.40) 3.93 x10^6/uL (3.50-5.40) 3.57 x10^6/uL (3.50-5.40) Hemoglobin 12.5 g/dL (12.0-15.5) 11.8 g/dL (12.0-15.5) 10.7 g/dL (12.0-15.5) Hematocrit 36.6 % (36.0-47.0) 34.8 % (36.0-47.0) 31.4 % (36.0-47.0) Mean Corpuscular Volume 89 fL (79-100) 89 fL (79-100) 88 fL (79-100) Mean Corpuscular Hemoglobin 30 pg (25-35) 30 pg (25-35) 30 pg (25-35) Mean Corpuscular Hemoglobin Concent 34 g/dL (31-37) 34 g/dL (31-37) 34 g/dL (31-37) Red Cell Distribution Width 13.9 % (11.5-14.5) 13.8 % (11.5-14.5) 13.6 % (11.5-14.5) Platelet Count 277 x10^3/uL (140-400) 256 x10^3/uL (140-400) 233 x10^3/uL (140-400) Neutrophils (%) (Auto) 83 % (31-73) 74 % (31-73) 73 % (31-73) Lymphocytes (%) (Auto) 12 % (24-48) 17 % (24-48) 19 % (24-48) Monocytes (%) (Auto) 5 % (0-9) 8 % (0-9) 8 % (0-9) Eosinophils (%) (Auto) 0 % (0-3) 1 % (0-3) 0 % (0-3) Basophils (%) (Auto) 1 % (0-3) 1 % (0-3) 1 % (0-3) Neutrophils # (Auto) 9.1 x10^3uL (1.8-7.7) 8.5 x10^3uL (1.8-7.7) 8.0 x10^3uL (1.8-7.7) Lymphocytes # (Auto) 1.3 x10^3/uL (1.0-4.8) 2.0 x10^3/uL (1.0-4.8) 2.1 x10^3/uL (1.0-4.8) Monocytes # (Auto) 0.6 x10^3/uL (0.0-1.1) 0.9 x10^3/uL (0.0-1.1) 0.8 x10^3/uL (0.0-1.1) Eosinophils # (Auto) 0.0 x10^3/uL (0.0-0.7) 0.1 x10^3/uL (0.0-0.7) 0.0 x10^3/uL (0.0-0.7) Basophils # (Auto) 0.1 x10^3/uL (0.0-0.2) 0.1 x10^3/uL (0.0-0.2) 0.1 x10^3/uL (0.0-0.2) Urine Collection Type Unknown Urine Color Yellow Urine Clarity Clear Urine pH 6.5 Urine Specific [place] <=1.005 Urine Protein Negative mg/dL (NEG-TRACE) Urine Glucose (UA) Negative mg/dL (NEG) Urine Ketones (Stick) Negative mg/dL (NEG) Urine Blood Negative (NEG) Urine Nitrite Negative (NEG) Urine Bilirubin Negative (NEG) Urine Urobilinogen Dipstick 1.0 mg/dL (0.2 mg/dL) Urine Leukocyte Esterase Negative (NEG) Urine RBC 0 /HPF (0-2) Urine WBC 0 /HPF (0-4) Urine Squamous Epithelial Cells Occ /LPF Urine Bacteria 0 /HPF (0-FEW) Sodium Level 144 mmol/L (136-145) 143 mmol/L (136-145) 144 mmol/L (136-145) Potassium Level 4.1 mmol/L (3.5-5.1) 3.8 mmol/L (3.5-5.1) 3.7 mmol/L (3.5-5.1) Chloride Level 104 mmol/L (98-107) 107 mmol/L (98-107) 109 mmol/L (98-107) Carbon Dioxide Level 33 mmol/L (21-32) 28 mmol/L (21-32) 26 mmol/L (21-32) Anion Gap 7 (6-14) 8 (6-14) 9 (6-14) Blood Urea Nitrogen 13 mg/dL (7-20) 10 mg/dL (7-20) 13 mg/dL (7-20) Creatinine 0.7 mg/dL (0.6-1.0) 0.7 mg/dL (0.6-1.0) 0.8 mg/dL (0.6-1.0) Estimated GFR (Cockcroft-Gault) 82.0 82.0 70.3 BUN/Creatinine Ratio 19 (6-20) Glucose Level 152 mg/dL (70-99) 96 mg/dL (70-99) 73 mg/dL (70-99) Calcium Level 9.6 mg/dL (8.5-10.1) 8.9 mg/dL (8.5-10.1) 8.6 mg/dL (8.5-10.1) Total Bilirubin 0.3 mg/dL (0.2-1.0) Aspartate Amino Transf (AST/SGOT) 14 U/L (15-37) Alanine Aminotransferase (ALT/SGPT) 8 U/L (14-59) Alkaline Phosphatase 70 U/L (46-116) Total Protein 6.9 g/dL (6.4-8.2) Albumin 2.9 g/dL (3.4-5.0) Albumin/Globulin Ratio 0.7 (1.0-1.7) Lactic Acid Level 0.8 mmol/L (0.4-2.0) Laboratory Tests Test 05/28/17 07:00 05/28/17 09:55 White Blood Count 11.0 x10^3/uL (4.0-11.0) Red Blood Count 3.57 x10^6/uL (3.50-5.40) Hemoglobin 10.7 g/dL (12.0-15.5) Hematocrit 31.4 % (36.0-47.0) Mean Corpuscular Volume 88 fL (79-100) Mean Corpuscular Hemoglobin 30 pg (25-35) Mean Corpuscular Hemoglobin Concent 34 g/dL (31-37) Red Cell Distribution Width 13.6 % (11.5-14.5) Platelet Count 233 x10^3/uL (140-400) Neutrophils (%) (Auto) 73 % (31-73) Lymphocytes (%) (Auto) 19 % (24-48) Monocytes (%) (Auto) 8 % (0-9) Eosinophils (%) (Auto) 0 % (0-3) Basophils (%) (Auto) 1 % (0-3) Neutrophils # (Auto) 8.0 x10^3uL (1.8-7.7) Lymphocytes # (Auto) 2.1 x10^3/uL (1.0-4.8) Monocytes # (Auto) 0.8 x10^3/uL (0.0-1.1) Eosinophils # (Auto) 0.0 x10^3/uL (0.0-0.7) Basophils # (Auto) 0.1 x10^3/uL (0.0-0.2) Sodium Level 144 mmol/L (136-145) Potassium Level 3.7 mmol/L (3.5-5.1) Chloride Level 109 mmol/L (98-107) Carbon Dioxide Level 26 mmol/L (21-32) Anion Gap 9 (6-14) Blood Urea Nitrogen 13 mg/dL (7-20) Creatinine 0.8 mg/dL (0.6-1.0) Estimated GFR (Cockcroft-Gault) 70.3 Glucose Level 73 mg/dL (70-99) Calcium Level 8.6 mg/dL (8.5-10.1) Lactic Acid Level 0.8 mmol/L (0.4-2.0) Problem List Problems Medical Problems: (1) Infected decubitus ulcer Status: Acute (2) Moderate protein malnutrition Status: Acute (3) Parkinsons disease Status: Acute Assessment/Plan s/p debridement wound care, eating breakfast, did not view wound today Problems: GER HERNANDEZ APRN May 28, 2017 13:11
--- NOTE | 2017-05-28 13:23 | CONS ---
DATE OF CONSULTATION: 05/27/2017 REFERRING PHYSICIAN: Dr. Natarajan. REASON FOR CONSULTATION: Infected decubitus ulcer with questionable osteomyelitis. HISTORY OF PRESENT ILLNESS: This patient is a 71-year-old female with a history of Parkinson's who is mostly chair bound and lives at home in the care of her brother. She was brought to the Emergency Room when home health found her with a significant ulcer with necrotic tissue on left buttock. An x-ray hip/pelvis showed no fracture or destructive bony lesions. She was taken to the operating room yesterday and underwent a sharp debridement, which included skin and subcutaneous tissue down to fascia, performed by Dr. Ty. Gram-stain showed polymicrobial organisms with growth of mixed bernice so far. She has been started on vancomycin and Zosyn. Earlier this morning, the patient was found unresponsive and hypotensive with a systolic blood pressure in 70s, responsive to IV fluid boluses. She was transferred to ICU. Her brother is at the bedside and feels that she is comfortable. She said some words to him earlier, but is nonverbal to staff. The patient is incontinent of urine, requiring a Casas catheter. Her brother states it is typically changed every 3-4 days; but it was changed a few days ago having gone three weeks without change. Last time she was hospitalized was last year for a hysterectomy and had not been on any antibiotics since. She also has a history of reported Clostridium difficile. PAST MEDICAL HISTORY: E. coli pansensitive urinary tract infection, Parkinson disease with tardive dyskinesia, coronary artery disease, gastroesophageal reflux disease, hypertension, schizophrenia, tinnitus, hiatal hernia and contractures. PAST SURGICAL HISTORY: Previous PEG tube placement, excision of left lower extremity mass in 05/2016, total abdominal hysterectomy with bilateral salpingo-oophorectomy. SOCIAL HISTORY: The patient lives at home in the care of her brother. She is mostly bed/chair bound, requiring assistance with activities of daily living. FAMILY HISTORY: Noncontributory. ALLERGIES: No known drug allergies. MEDICATIONS: Vancomycin and Zosyn. Other medications are available and have been reviewed on the OCT. REVIEW OF SYSTEMS: Unobtainable as the patient is noncommunicative. PHYSICAL EXAMINATION: GENERAL: A female with mild tremors. VITAL SIGNS: Temperature is 99.3, T-max 100, blood pressure 98/46, heart rate 73, respiratory rate 18, pulse oximetry 94% on room air. Weight 101, BMI is 19. HEENT: Left pupil dilated and nonreactive. Teeth clinched down. LUNGS: Clear, nonlabored. HEART: Normal S1 and S2. ABDOMEN: Soft. No grimace or guarding to palpation. Bowel sounds active. GENITOURINARY: Casas in place. EXTREMITIES: No gross edema or cyanosis. SKIN: Without rash. Left buttock wound with packing. No surrounding redness or induration noted. NEUROLOGIC: Awake, nonresponsive to verbal stimuli. LABORATORY DATA: Today's WBC 11.0 from 11.5 on admission, hemoglobin 10.7 and platelet count 233,000. Electrolytes are unremarkable, creatinine 0.8, BUN 13, glucose 73, lactic acid 0.8, total bilirubin 0.3, AST 14, ALT 8, albumin 2.9. Urinalysis is unremarkable for infection. Anaerobic/aerobic cultures per HPI. Hip/pelvis x-ray per HPI. ASSESSMENT: 1. Fever. 2. Decubitus ulcer with necrotic tissue of left buttock status post debridement down to fascia on 05/27/2017. 3. Hypotension. 4. Parkinson's. PLAN: Continue the antibiotics. Check blood cultures. Monitor WBC count, renal function and temperature. Treatment plan discussed with the patient's brother. Thank you, Dr. Natarajan, for asking us to participate in this patient's care. Should you have further questions or concerns, please call. OKSANA GORE MD DR: ANGEL/leigha JOB#: [id number] / [id number]
--- NOTE | 2017-05-28 13:51 | CARD ---
APPROVED REPORT EXAM: Two-dimensional and M-mode echocardiogram with Doppler and color Doppler. Other Information Quality : GoodHR: 71bpm INDICATION LV Function:Systolic 2D DIMENSIONS RVDd3.3 (2.9-3.5cm)Left Atrium(2D)4.2 (1.6-4.0cm) IVSd1.0 (0.7-1.1cm)Aortic Root(2D)2.6 (2.0-3.7cm) LVDd4.1 (3.9-5.9cm)LVOT Diameter2.0 (1.8-2.4cm) PWd1.1 (0.7-1.1cm)LVDs2.4 (2.5-4.0cm) FS (%) 40.3 %SV52.0 ml Aortic Valve AoV Peak Edgardo.137.9cm/sAoV VTI28.8cm AO Peak GR.7.6mmHgLVOT Peak Edgardo.124.5cm/s AO Mean GR.4mmHgAVA (VMAX)2.77cm2 Mitral Valve MV E Hszyoxxq19.6cm/sMV DECEL [id number] MV A Wzqqzaea87.3cm/sE/A Ratio1.1 Pulmonary Valve PV Peak Zpzuitwe137.5cm/s Tricuspid Valve TR P. [id number]/sRAP [id number] TR Peak Gr.26mmHg Pulmonary Vein S1 Oclxuyhy53.3cm/sD2 Flohkqgs51.3cm/s LEFT VENTRICLE The left ventricle is normal size. There is borderline concentric left ventricular hypertrophy. Left ventricle systolic function is normal. The Ejection Fraction is 60-65%. There is normal LV segmental wall motion. The left ventricular diastolic function and filling is normal for age. RIGHT VENTRICLE The right ventricle is normal size. There is normal right ventricular wall thickness. The right ventr icular systolic function is normal. ATRIA The left atrium is borderline dilated. The right atrium size is normal. The interatrial septum is int act with no evidence for an atrial septal defect or patent foramen ovale as noted on 2-D or Doppler i maging. AORTIC VALVE The aortic valve is normal in structure and function. Doppler and Color Flow revealed no significant aortic regurgitation. There is no significant aortic valvular stenosis. MITRAL VALVE The mitral valve is normal in structure and function. There is no mitral valve stenosis. Doppler and Color-flow revealed trace mitral regurgitation. TRICUSPID VALVE The tricuspid valve is normal in structure and function. Doppler and Color Flow revealed trace to mil d tricuspid regurgitation. The PA pressure was estimated at 29 mmHg. There is no tricuspid valve sten osis. PULMONIC VALVE The pulmonary valve is normal in structure and function. Doppler and Color Flow revealed trace pulmon ic valvular regurgitation. There is no pulmonic valvular stenosis. GREAT VESSELS The aortic root is normal in size. Normal pulmonary venous flow (Doppler). The IVC is normal in size and collapses >50% with inspiration. PERICARDIAL EFFUSION There is no evidence of significant pericardial effusion. Critical Notification Critical Value: No <Conclusion> The left ventricle is normal size. Left ventricle systolic function is normal. The Ejection Fraction is 60-65%. There is borderline concentric left ventricular hypertrophy. There is no significant aortic valvular stenosis. Doppler and Color Flow revealed no significant aortic regurgitation. Doppler and Color-flow revealed trace mitral regurgitation. Doppler and Color Flow revealed trace to mild tricuspid regurgitation. The PA pressure was estimated at 29 mmHg.
[2017-05-28 14:22] LABS: BILIRUBIN,URINE MODERATE (NEG); GLUCOSE,URINE NEGATIVE (NEG); NITRITE,URINE NEGATIVE (NEG); PH,URINE 5.5; PROTEIN,URINE 100 mg/dL (NEG-TRACE); UROBILINOGEN,URINE 0.2 mg/dL (0.2 mg/dL)
[2017-05-28 14:31] LABS: BACTERIA,URINE 0 /HPF (0-FEW); RBC,URINE TNTC /HPF (0-2); WBC,URINE >40 /HPF (0-4)
[2017-05-28] MEDS: VANCOMYCIN PER PHARMACY MC PRN ×2 (15:24→15:25)
[2017-05-28] MEDS: VANCOMYCIN 750 MG in IV NORMAL SALINE 250ML 250 ML IV SCH (20:47)
[2017-05-29] VITALS (16 sets, daily range): BP systolic 116–179; BP diastolic 55–99
[2017-05-29] MEDS: VANCOMYCIN PER PHARMACY MC PRN (00:53)
[2017-05-29] MEDS: PIPERACILLIN/TAZOBACTAM 2.25 GM in IV NORMAL SALINE 50ML 50 ML IV SCH ×5 (06:11→18:10)
[2017-05-29] MEDS: CHOLECALCIFEROL (VITAMIN D3) 1,000 UNIT TABLET PO SCH (09:04)
[2017-05-29] MEDS: MULTIVITAMIN with MINERAL TABLET. PO SCH (09:04)
[2017-05-29] MEDS: FUROSEMIDE 20 MG TABLET PO SCH (09:04)
[2017-05-29] MEDS: CARBIDOPA/LEVODOPA 25/100MG TABLET PO SCH ×2 (09:04→21:49)
[2017-05-29] MEDS: OLANZapine 5 MG TABLET PO SCH (09:04)
[2017-05-29] MEDS: IV NORMAL SALINE 1000ML BAG 1,000 ML IV SCH ×2 (09:10→15:00)
--- NOTE | 2017-05-29 09:21 | PDOC ---
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, answers questions appropriately SKIN: No rash IV: ok Labs Lab Laboratory Tests Test 05/28/17 09:55 05/28/17 10:20 05/28/17 14:00 05/28/17 20:00 Lactic Acid Level 0.8 mmol/L (0.4-2.0) Nasal Screen MRSA (PCR) Negative (Negative) Urine Collection Type Unknown Urine Color Red Urine Clarity Cloudy Urine pH 5.5 Urine Specific [place] 1.020 Urine Protein 100 mg/dL (NEG-TRACE) Urine Glucose (UA) Negative mg/dL (NEG) Urine Ketones (Stick) 40 mg/dL (NEG) Urine Blood Large (NEG) Urine Nitrite Negative (NEG) Urine Bilirubin Moderate (NEG) Urine Urobilinogen Dipstick 0.2 mg/dL (0.2 mg/dL) Urine Leukocyte Esterase Large (NEG) Urine RBC Tntc /HPF (0-2) Urine WBC >40 /HPF (0-4) Urine Bacteria 0 /HPF (0-FEW) Vancomycin Level Trough 8.7 mcg/mL (10.0-20.0) Vancomycin Last Dose Date 05/27/17 Vancomycin Last Dose Time 2100 Micro ANAEROBIC RES 1 PENDING AEROBIC CULT Preliminary Preliminary report AEROBIC RES 1 Preliminary Mixed skin bernice AEROBIC RES 2 Preliminary Gram negative rods Objective Assessment ? Fever - post-op Infected decubitus ulcer w/ necrotic tissue of left buttocks s/p debridement down to fascia, 05/27. GNR Hypotension, responsive to IVF boluses. Parkinson's w/ tardive dyskinesia, mostly chair bound ? hx C. diff 2016. Chronic Casas - no sign of infection Plan Plan of Care vanc and Zosyn (CrCl 38) pending Await GNR ID wound Monitor WBC, renal function and temp Local wound care No need to change Casas - ? trauma causing discoloration Attending Co-Sign Attending Co-Sign The patient was seen and interviewed as well as examined at the bedside. The chart was reviewed. The case was discussed. Agree with the plan of care. SULAIMAN COYLE APRN May 29, 2017 09:21 OKSANA GORE MD May 29, 2017 12:58
--- NOTE | 2017-05-29 11:04 | PDOC ---
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[employer]ER 05/29/17 1104: SURGICAL PROGRESS NOTE Subjective resting reviewed with nurse, transferring to floor wound dressing changed today, viewed pictures, no bleeding Vital Signs Vital Signs Date Time Temp Pulse Resp B/P (MAP) Pulse Ox O2 Delivery O2 Flow Rate FiO2 05/29/17 10:00 96 16 126/82 (97) 96 Room Air 05/29/17 08:00 98.6 98.6 I&O Intake and Output 05/30/17 06:59 Intake Total 120 ml Output Total 210 ml Balance -90 ml Intake Oral 120 ml Output Urine Total 210 ml General: Cooperative, No acute distress Skin: Other (reviewed wound pics ) Labs Laboratory Tests Test 05/28/17 07:00 05/28/17 09:55 05/28/17 10:20 05/28/17 14:00 White Blood Count 11.0 x10^3/uL (4.0-11.0) Red Blood Count 3.57 x10^6/uL (3.50-5.40) Hemoglobin 10.7 g/dL (12.0-15.5) Hematocrit 31.4 % (36.0-47.0) Mean Corpuscular Volume 88 fL (79-100) Mean Corpuscular Hemoglobin 30 pg (25-35) Mean Corpuscular Hemoglobin Concent 34 g/dL (31-37) Red Cell Distribution Width 13.6 % (11.5-14.5) Platelet Count 233 x10^3/uL (140-400) Neutrophils (%) (Auto) 73 % (31-73) Lymphocytes (%) (Auto) 19 % (24-48) Monocytes (%) (Auto) 8 % (0-9) Eosinophils (%) (Auto) 0 % (0-3) Basophils (%) (Auto) 1 % (0-3) Neutrophils # (Auto) 8.0 x10^3uL (1.8-7.7) Lymphocytes # (Auto) 2.1 x10^3/uL (1.0-4.8) Monocytes # (Auto) 0.8 x10^3/uL (0.0-1.1) Eosinophils # (Auto) 0.0 x10^3/uL (0.0-0.7) Basophils # (Auto) 0.1 x10^3/uL (0.0-0.2) Sodium Level 144 mmol/L (136-145) Potassium Level 3.7 mmol/L (3.5-5.1) Chloride Level 109 mmol/L (98-107) Carbon Dioxide Level 26 mmol/L (21-32) Anion Gap 9 (6-14) Blood Urea Nitrogen 13 mg/dL (7-20) Creatinine 0.8 mg/dL (0.6-1.0) Estimated GFR (Cockcroft-Gault) 70.3 Glucose Level 73 mg/dL (70-99) Calcium Level 8.6 mg/dL (8.5-10.1) Lactic Acid Level 0.8 mmol/L (0.4-2.0) Nasal Screen MRSA (PCR) Negative (Negative) Urine Collection Type Unknown Urine Color Red Urine Clarity Cloudy Urine pH 5.5 Urine Specific [place] 1.020 Urine Protein 100 mg/dL (NEG-TRACE) Urine Glucose (UA) Negative mg/dL (NEG) Urine Ketones (Stick) 40 mg/dL (NEG) Urine Blood Large (NEG) Urine Nitrite Negative (NEG) Urine Bilirubin Moderate (NEG) Urine Urobilinogen Dipstick 0.2 mg/dL (0.2 mg/dL) Urine Leukocyte Esterase Large (NEG) Urine RBC Tntc /HPF (0-2) Urine WBC >40 /HPF (0-4) Urine Bacteria 0 /HPF (0-FEW) Test 05/28/17 20:00 Vancomycin Level Trough 8.7 mcg/mL (10.0-20.0) Vancomycin Last Dose Date 05/27/17 Vancomycin Last Dose Time 2100 Laboratory Tests Test 05/28/17 14:00 05/28/17 20:00 Urine Collection Type Unknown Urine Color Red Urine Clarity Cloudy Urine pH 5.5 Urine Specific [place] 1.020 Urine Protein 100 mg/dL (NEG-TRACE) Urine Glucose (UA) Negative mg/dL (NEG) Urine Ketones (Stick) 40 mg/dL (NEG) Urine Blood Large (NEG) Urine Nitrite Negative (NEG) Urine Bilirubin Moderate (NEG) Urine Urobilinogen Dipstick 0.2 mg/dL (0.2 mg/dL) Urine Leukocyte Esterase Large (NEG) Urine RBC Tntc /HPF (0-2) Urine WBC >40 /HPF (0-4) Urine Bacteria 0 /HPF (0-FEW) Vancomycin Level Trough 8.7 mcg/mL (10.0-20.0) Vancomycin Last Dose Date 05/27/17 Vancomycin Last Dose Time 2100 Problem List Problems Medical Problems: (1) Infected decubitus ulcer Status: Acute (2) Moderate protein malnutrition Status: Acute (3) Parkinsons disease Status: Acute Assessment/Plan s/p debridement will have wound care see Tuesday Problems: PAULA BANEGAS MD 05/29/17 1453: SURGICAL PROGRESS NOTE Assessment/Plan as above Problems: GER HERNANDEZ APRN May 29, 2017 11:04 PAULA BANEGAS MD May 29, 2017 14:53
--- NOTE | 2017-05-29 13:38 | PDOC ---
PROGRESS NOTES Chief Complaint Chief Complaint decub wound s/p debridement 05/27 HYpotensive shock needing pressors PAST MEDICAL HISTORY: Parkinson's, anxiety, depression, hypertension, schizophrenia. She is status post PEG tube placement and removal secondary to now resolved dysphagia, probably related to Parkinson's. History of Present Illness History of Present Illness Pt is in the ICU. Pt was sitting in a chair bedside. Her body was shaking/tremoring continuously. She appeared to be in NA at this time. Her BP was stable. She is slow to answer questions bu is AOx3. She does not mention any CP, N/V, or diarrhea. Pt became hypotensive last night and was refractory to normal fluid bolus and required pressers. Pt was then transferred to ICU fo monitoring. She appears very frail possibly due to other medical conditions. Culture done on the infected ulcer showed anaerobes. ID is following and will cont. vanc and start zosyn and fluconazole. Echo showed normal EF of 60-65% and mild mitral and tricuspid regurg. CC 30 Vitals Vitals Vital Signs Date Time Temp Pulse Resp B/P (MAP) Pulse Ox O2 Delivery O2 Flow Rate FiO2 05/29/17 11:00 98.7 92 16 136/72 (93) 96 Room Air 98.7 Physical Exam General: Alert, Oriented X3, Cooperative, No acute distress Heart: Regular rate, Normal S1, Normal S2, No murmurs Lungs: Clear, Other Abdomen: Soft Extremities: No clubbing, No cyanosis, No edema Skin: No rashes, Other (wound was not visualized) Labs LABS Laboratory Tests Test 05/28/17 14:00 05/28/17 20:00 Urine Collection Type Unknown Urine Color Red Urine Clarity Cloudy Urine pH 5.5 Urine Specific Lawrence 1.020 Urine Protein 100 mg/dL (NEG-TRACE) Urine Glucose (UA) Negative mg/dL (NEG) Urine Ketones (Stick) 40 mg/dL (NEG) Urine Blood Large (NEG) Urine Nitrite Negative (NEG) Urine Bilirubin Moderate (NEG) Urine Urobilinogen Dipstick 0.2 mg/dL (0.2 mg/dL) Urine Leukocyte Esterase Large (NEG) Urine RBC Tntc /HPF (0-2) Urine WBC >40 /HPF (0-4) Urine Bacteria 0 /HPF (0-FEW) Vancomycin Level Trough 8.7 mcg/mL (10.0-20.0) Vancomycin Last Dose Date 05/27/17 Vancomycin Last Dose Time 2100 Review of Systems Review of Systems Pt fatigued Pt appeared mildly SOB Pt cold Pt was shaking Assessment and Plan Assessmemt and Plan Problems Medical Problems: (1) Infected decubitus ulcer Status: Acute (2) Moderate protein malnutrition Status: Acute (3) Parkinsons disease Status: Acute decub wound s/p debridement 05/27 HYpotensive shock needing pressors PAST MEDICAL HISTORY: Parkinson's, anxiety, depression, hypertension, schizophrenia. She is status post PEG tube placement and removal secondary to now resolved dysphagia, probably related to Parkinson's. Plan: cont. ICU monitoring recheck labs cont. abx IVF as necessary hopefully will not need pressers PT/OT if able appreciate subspecialists input Problems: Comment Review of Relevant I have reviewed the following items clovis (where applicable) has been applied. Labs Laboratory Tests Test 05/28/17 07:00 05/28/17 09:55 05/28/17 10:20 05/28/17 14:00 White Blood Count 11.0 x10^3/uL (4.0-11.0) Red Blood Count 3.57 x10^6/uL (3.50-5.40) Hemoglobin 10.7 g/dL (12.0-15.5) Hematocrit 31.4 % (36.0-47.0) Mean Corpuscular Volume 88 fL (79-100) Mean Corpuscular Hemoglobin 30 pg (25-35) Mean Corpuscular Hemoglobin Concent 34 g/dL (31-37) Red Cell Distribution Width 13.6 % (11.5-14.5) Platelet Count 233 x10^3/uL (140-400) Neutrophils (%) (Auto) 73 % (31-73) Lymphocytes (%) (Auto) 19 % (24-48) Monocytes (%) (Auto) 8 % (0-9) Eosinophils (%) (Auto) 0 % (0-3) Basophils (%) (Auto) 1 % (0-3) Neutrophils # (Auto) 8.0 x10^3uL (1.8-7.7) Lymphocytes # (Auto) 2.1 x10^3/uL (1.0-4.8) Monocytes # (Auto) 0.8 x10^3/uL (0.0-1.1) Eosinophils # (Auto) 0.0 x10^3/uL (0.0-0.7) Basophils # (Auto) 0.1 x10^3/uL (0.0-0.2) Sodium Level 144 mmol/L (136-145) Potassium Level 3.7 mmol/L (3.5-5.1) Chloride Level 109 mmol/L (98-107) Carbon Dioxide Level 26 mmol/L (21-32) Anion Gap 9 (6-14) Blood Urea Nitrogen 13 mg/dL (7-20) Creatinine 0.8 mg/dL (0.6-1.0) Estimated GFR (Cockcroft-Gault) 70.3 Glucose Level 73 mg/dL (70-99) Calcium Level 8.6 mg/dL (8.5-10.1) Lactic Acid Level 0.8 mmol/L (0.4-2.0) Nasal Screen MRSA (PCR) Negative (Negative) Urine Collection Type Unknown Urine Color Red Urine Clarity Cloudy Urine pH 5.5 Urine Specific Lawrence 1.020 Urine Protein 100 mg/dL (NEG-TRACE) Urine Glucose (UA) Negative mg/dL (NEG) Urine Ketones (Stick) 40 mg/dL (NEG) Urine Blood Large (NEG) Urine Nitrite Negative (NEG) Urine Bilirubin Moderate (NEG) Urine Urobilinogen Dipstick 0.2 mg/dL (0.2 mg/dL) Urine Leukocyte Esterase Large (NEG) Urine RBC Tntc /HPF (0-2) Urine WBC >40 /HPF (0-4) Urine Bacteria 0 /HPF (0-FEW) Test 05/28/17 20:00 Vancomycin Level Trough 8.7 mcg/mL (10.0-20.0) Vancomycin Last Dose Date 05/27/17 Vancomycin Last Dose Time 2100 Laboratory Tests Test 05/28/17 14:00 05/28/17 20:00 Urine Collection Type Unknown Urine Color Red Urine Clarity Cloudy Urine pH 5.5 Urine Specific [place] 1.020 Urine Protein 100 mg/dL (NEG-TRACE) Urine Glucose (UA) Negative mg/dL (NEG) Urine Ketones (Stick) 40 mg/dL (NEG) Urine Blood Large (NEG) Urine Nitrite Negative (NEG) Urine Bilirubin Moderate (NEG) Urine Urobilinogen Dipstick 0.2 mg/dL (0.2 mg/dL) Urine Leukocyte Esterase Large (NEG) Urine RBC Tntc /HPF (0-2) Urine WBC >40 /HPF (0-4) Urine Bacteria 0 /HPF (0-FEW) Vancomycin Level Trough 8.7 mcg/mL (10.0-20.0) Vancomycin Last Dose Date 05/27/17 Vancomycin Last Dose Time 2100 Microbiology 05/28/17 Blood Culture - Preliminary, Resulted NO GROWTH AFTER 1 DAY 05/27/17 Gram Stain - Final, Complete Medications Current Medications Sodium Chloride 1,000 ml @ 100 mls/hr Q10H IV Last administered on 05/26/17 19:20; Start 05/26/17 at 19:05; Stop 05/27/17 at 05:04; Status DC Ondansetron HCl (Zofran) 4 mg PRN Q8HRS PRN IV NAUSEA/VOMITING; Start at 20:15; Stop 05/27/17 at 20:14; Status DC Sodium Chloride 1,000 ml @ 100 mls/hr Q10H IV Last administered on 05/27/17 06:01; Start 05/26/17 at 20:01; Stop 05/27/17 at 20:00; Status DC Acetaminophen (Tylenol) 650 mg PRN Q4HRS PRN PO FEVER; Start 05/26/17 at 20:15 ; Stop 05/27/17 at 20:14; Status DC Piperacillin Sod/ Tazobactam Sod (Zosyn Per Pharmacy) 1 each PRN DAILY PRN MC SEE COMMENTS; Start 05/26/17 at 20:15 Vancomycin HCl (Vanco Per Pharmacy) 1 each PRN DAILY PRN MC SEE COMMENTS Last administered on 05/29/17 00:53; Start 05/26/17 at 20:15 Vancomycin HCl 1.25 gm/Sodium Chloride 250 ml @ 166.667 mls/hr 1X ONCE IV Last administered on 05/26/17 22:08; Start 05/26/17 at 20:30; Stop 05/26/17 at 21:59; Status DC Piperacillin Sod/ Tazobactam Sod 3.375 gm/Sodium Chloride 50 ml @ 100 mls/hr 1X ONCE IV Last administered on 05/26/17 20:23; Start 05/26/17 at 20:15; Stop 05/26/17 at 20:44; Status DC Piperacillin Sod/ Tazobactam Sod 2.25 gm/Sodium Chloride 50 ml @ 100 mls/hr Q6HRS IV Last administered on 05/29/17 11:28; Start 05/27/17 at 00:00 Vancomycin HCl 750 mg/Sodium Chloride 250 ml @ 250 mls/hr Q24H IV Last administered on 05/28/17 20:47; Start 05/27/17 at 21:00; Stop 05/29/17 at 00 :47; Status DC Vancomycin HCl 1 each 1X ONCE MC Last administered on 05/28/17 20:30; Start 05/28/17 at 20:30; Stop 05/28/17 at 20:31; Status DC Pneumococcal Polyvalent Vaccine (Do NOT chart on this placeholder) 1 each PRN DAILY PRN MC DATE RECEIVED UNKNOWN; Start 05/27/17 at 02:15; Status Cancel Atenolol (Tenormin) 50 mg DAILY PO ; Start 05/27/17 at 13:00; Stop 05/28/17 at 10:02; Status DC Carbidopa/Levodopa (Sinemet 25/100) 1 tab BID PO Last administered on 09:04; Start 05/27/17 at 13:00 Vitamin D (Vitamin D3) 1,000 unit DAILY PO Last administered on 05/29/17 09: 04; Start 05/27/17 at 13:00 Furosemide (Lasix) 20 mg DAILY PO Last administered on 05/29/17 09:04; Start 05/27/17 at 13:00 Olanzapine (ZyPREXA) 5 mg DAILY PO Last administered on 05/29/17 09:04; Start 05/27/17 at 13:00 Multivitamins (Thera M Plus) 1 tab DAILY PO Last administered on 05/29/17 09: 04; Start 05/27/17 at 13:00 Ondansetron HCl (Zofran) 4 mg PRN Q6HRS PRN IV NAUSEA/VOMITING; Start at 14:45 Ondansetron HCl (Zofran) 4 mg PRN Q6HRS PRN IV NAUSEA/VOMITING; Start at 15:30; Stop 05/28/17 at 15:29; Status DC Fentanyl Citrate (Fentanyl 2ml Vial) 25 mcg PRN Q5MIN PRN IV MILD PAIN; Start 05/27/17 at 15:30; Stop 05/28/17 at 15:29; Status DC Fentanyl Citrate (Fentanyl 2ml Vial) 50 mcg PRN Q5MIN PRN IV MODERATE PAIN; Start 05/27/17 at 15:30; Stop 05/28/17 at 15:29; Status DC Morphine Sulfate 1 mg PRN Q10MIN PRN IV SEVERE PAIN; Start 05/27/17 at 15:30; Stop 05/28/17 at 15:29; Status DC Ringer's Solution 1,000 ml @ 0 mls/hr Q0M IV Last administered on 05/27/17t 15:28; Start 05/27/17 at 15:18; Stop 05/28/17 at 03:17; Status DC Lidocaine HCl (Xylocaine-Mpf 1% Vial) 2 ml PRN 1X PRN ID PRIOR TO IV START; Start 05/27/17 at 15:30; Stop 05/28/17 at 15:29; Status DC Hydromorphone HCl (Dilaudid) 0.5 mg PRN Q10MIN PRN IV SEV PAIN, Second choice; Start 05/27/17 at 15:30; Stop 05/28/17 at 15:29; Status DC Prochlorperazine Edisylate (Compazine) 5 mg PACU PRN PRN IV NAUSEA, MRX1; Start 05/27/17 at 15:30; Stop 05/28/17 at 15:29; Status DC Midazolam HCl (Versed) 2 mg STK-MED ONCE .ROUTE ; Start 05/27/17 at 15:18; Stop 05/27/17 at 15:19; Status DC Propofol 20 ml @ As Directed STK-MED ONCE IV ; Start 05/27/17 at 15:18; Stop 05/27/17 at 15:19; Status DC Lidocaine HCl (Lidocaine Pf 2% Vial) 5 ml STK-MED ONCE .ROUTE ; Start 05/27/17 at 15:18; Stop 05/27/17 at 15:19; Status DC Bupivacaine HCl/ Epinephrine Bitart (Marcaine-Epi 0.25%-1:324005) 50 ml STK-MED ONCE .ROUTE ; Start 05/27/17 at 14:34; Stop 05/27/17 at 15:34; Status DC Morphine Sulfate 2 mg PRN Q2HR PRN IV SEVERE PAIN Last administered on 05:02; Start 05/28/17 at 04:45 Oxycodone/ Acetaminophen (Percocet 5/325) 1 tab PRN Q6HRS PRN PO SEVERE PAIN; Start 05/28/17 at 04:45 Sodium Chloride 500 ml @ 500 mls/hr 1X ONCE IV Last administered on 08:00; Start 05/28/17 at 08:00; Stop 05/28/17 at 08:59; Status DC Sodium Chloride 1,000 ml @ 100 mls/hr Q10H IV Last administered on 05/29/17 09:10; Start 05/28/17 at 09:00 Norepinephrine Bitartrate 250 ml @ 0 mls/hr CONT PRN IV SEE I/O RECORD; Start 05/28/17 at 09:45 Sodium Chloride 1,000 ml @ 100 mls/hr Q10H IV Last administered on 05/28/17 12:40; Start 05/28/17 at 12:45; Stop 05/29/17 at 09:53; Status DC Vancomycin HCl 1 gm/Sodium Chloride 250 ml @ 250 mls/hr Q24H IV ; Start at 21:00 Vancomycin HCl 1 each 1X ONCE MC ; Start 05/31/17 at 20:30; Stop 05/31/17 at 20:31 Active Scripts Active Reported Multi-Day Plus Iron Tablet (Multivitamin/Iron/Folic Acid) 1 Each Tablet 1 Each PO Carbidopa-Levodopa 25-100 Tab (Carbidopa/Levodopa) 1 Each Tablet 1 Each PO BID Vitamin D3 (Cholecalciferol (Vitamin D3)) 1,000 Unit Tablet 1,000 Unit PO DAILY Furosemide 20 Mg Tablet 20 Mg PO DAILY Atenolol 50 Mg Tablet 50 Mg PO DAILY Olanzapine 5 Mg Tablet 5 Mg PO DAILY Vitals/I & O Vital Sign - Last 24 Hours 05/28/17 05/28/17 05/28/17 05/28/17 14:00 15:00 16:00 16:00 Pulse 71 55 51 Resp 16 16 16 B/P (MAP) 115/58 (77) 123/33 (63) 116/62 (80) Pulse Ox 97 96 97 O2 Delivery Room Air Room Air Room Air Room Air 05/28/17 05/28/17 05/28/17 05/28/17 17:00 18:00 19:00 20:00 Temp 99.0 99.0 Pulse 59 81 74 Resp 16 16 21 B/P (MAP) 114/66 (82) 152/72 (98) 108/50 (69) Pulse Ox 95 97 95 O2 Delivery Room Air Room Air Room Air Room Air 05/28/17 05/28/17 05/28/17 05/28/17 20:00 21:00 22:00 23:00 Pulse 58 60 56 67 Resp 24 21 22 22 B/P (MAP) 105/47 (66) 125/54 (77) 123/54 (77) 126/51 (76) Pulse Ox 95 95 96 95 O2 Delivery Room Air Room Air Room Air Room Air 05/29/17 05/29/17 05/29/17 05/29/17 00:00 00:00 01:00 02:00 Temp 99.7 99.7 Pulse 73 76 60 Resp 23 24 19 B/P (MAP) 128/67 (87) 118/63 (81) 133/59 (83) Pulse Ox 95 95 96 O2 Delivery Room Air Room Air Room Air Room Air 05/29/17 05/29/17 05/29/17 05/29/17 03:00 04:00 04:00 05:00 Temp 99.5 99.5 Pulse 60 63 88 Resp 18 20 28 B/P (MAP) 129/64 (85) 144/65 (91) 159/67 (97) Pulse Ox 96 94 96 O2 Delivery Room Air Room Air Room Air Room Air 05/29/17 05/29/17 05/29/17 05/29/17 06:00 06:20 08:00 08:00 Temp 98.6 98.6 Pulse 82 80 Resp 22 16 B/P (MAP) 179/75 (109) 144/68 (93) 140/78 (98) Pulse Ox 95 97 O2 Delivery Room Air Room Air Room Air 05/29/17 05/29/17 05/29/17 09:00 10:00 11:00 Temp 98.7 98.7 Pulse 80 96 92 Resp 16 16 16 B/P (MAP) 136/78 (97) 126/82 (97) 136/72 (93) Pulse Ox 97 96 96 O2 Delivery Room Air Room Air Room Air Intake and Output 05/29/17 05/29/17 05/30/17 15:00 23:00 07:00 Intake Total 170 ml Output Total 210 ml Balance -40 ml Nutrition Consultation Dietary Evaluation: Recommendations by RD: Increase Calorie Intake, Protein supplementation Comments: REC adv to regular diet when able REC [place] with all meals to aid in wound healing continue mvi and vit c to aid w/ wound healing per wound protocal Expected Outcomes/Goals: to meet > 75% est nutr needs Interpretation of weight loss: >10% in 6 months Malnutrition Findings: Body Fat Depletion (Non Severe: Mild Depletion Weight Status: Appropriate HEBER GARDNER K III DO May 29, 2017 13:38
[2017-05-29] MEDS ORDERED: VANCOMYCIN 1 GM in IV NORMAL SALINE 250ML 250 ML IV SCH (21:00)
[2017-05-30] MEDS: PIPERACILLIN/TAZOBACTAM 2.25 GM in IV NORMAL SALINE 50ML 50 ML IV SCH ×4 (01:00→19:37)
[2017-05-30 03:00] VITALS: BP 118/62
[2017-05-30] MEDS: IV NORMAL SALINE 1000ML BAG 1,000 ML IV SCH ×2 (05:13→10:39)
[2017-05-30 06:20] LABS: BASO # 0.1 x10^3/uL (0.0-0.2); BASO % 1 % (0-3); EOS % 1 % (0-3); HEMATOCRIT 30.3 % (36.0-47.0); HEMOGLOBIN 10.3 g/dL (12.0-15.5); LYMPH # 2.1 x10^3/uL (1.0-4.8); LYMPH % 23 % (24-48); MEAN CORPUSCULAR HEMOGLOBIN 30 pg (25-35); MEAN CORPUSCULAR HGB CONC 34 g/dL (31-37); MEAN CORPUSCULAR VOLUME 88 fL (79-100); MONO % 8 % (0-9); NEUT % 67 % (31-73); PLATELET COUNT 230 x10^3/uL (140-400); RED BLOOD COUNT 3.45 x10^6/uL (3.50-5.40); RED CELL DISTRIBUTION WIDTH 13.7 % (11.5-14.5); WHITE BLOOD COUNT 9.3 x10^3/uL (4.0-11.0)
[2017-05-30 06:42] LABS: CALCIUM 7.9 mg/dL (8.5-10.1); CREATININE 0.6 mg/dL (0.6-1.0)
[2017-05-30 06:52] LABS: POTASSIUM 2.7 mmol/L (3.5-5.1)
[2017-05-30 07:00] VITALS: BP 127/42
--- NOTE | 2017-05-30 07:41 | PDOC ---
Infectious Disease Note Subjective Subjective Doing ok. States ate well ROS ROS GEN: Denies fevers, chills, sweats HEENT: Denies blurred vision, sore throat CV: Denies chest pain RESP: Denies shortness of air, cough GI: Denies n/v/d NEURO: Denies confusion, dizziness MSK: Denies weakness, joint pain/swelling Vital Sign Vital Signs Vital Signs Date Time Temp Pulse Resp B/P (MAP) Pulse Ox O2 Delivery O2 Flow Rate FiO2 05/30/17 03:00 98.8 58 12 118/62 (80) 95 Room Air 98.8 Physical Exam PHYSICAL EXAM GENERAL: Propped up in bed awake, NAD OC/Op - clear LUNGS: Clear HEART: S1 and S2 ABD: Soft, NT, BS active : Salas - urine better EXT: No edema, no cyanosis LEHR STRIPPER: Awake, answers questions appropriately SKIN: No rash IV: ok Labs Lab Laboratory Tests Test 05/30/17 05:30 White Blood Count 9.3 x10^3/uL (4.0-11.0) Red Blood Count 3.45 x10^6/uL (3.50-5.40) Hemoglobin 10.3 g/dL (12.0-15.5) Hematocrit 30.3 % (36.0-47.0) Mean Corpuscular Volume 88 fL (79-100) Mean Corpuscular Hemoglobin 30 pg (25-35) Mean Corpuscular Hemoglobin Concent 34 g/dL (31-37) Red Cell Distribution Width 13.7 % (11.5-14.5) Platelet Count 230 x10^3/uL (140-400) Neutrophils (%) (Auto) 67 % (31-73) Lymphocytes (%) (Auto) 23 % (24-48) Monocytes (%) (Auto) 8 % (0-9) Eosinophils (%) (Auto) 1 % (0-3) Basophils (%) (Auto) 1 % (0-3) Neutrophils # (Auto) 6.3 x10^3uL (1.8-7.7) Lymphocytes # (Auto) 2.1 x10^3/uL (1.0-4.8) Monocytes # (Auto) 0.7 x10^3/uL (0.0-1.1) Eosinophils # (Auto) 0.1 x10^3/uL (0.0-0.7) Basophils # (Auto) 0.1 x10^3/uL (0.0-0.2) Sodium Level 145 mmol/L (136-145) Potassium Level 2.7 mmol/L (3.5-5.1) Chloride Level 112 mmol/L (98-107) Carbon Dioxide Level 24 mmol/L (21-32) Anion Gap 9 (6-14) Blood Urea Nitrogen 5 mg/dL (7-20) Creatinine 0.6 mg/dL (0.6-1.0) Estimated GFR (Cockcroft-Gault) 98.0 Glucose Level 81 mg/dL (70-99) Calcium Level 7.9 mg/dL (8.5-10.1) Objective Assessment ? Fever - post-op Leukocytosis - better Decubitus ulcer w/ necrotic tissue of left buttocks s/p debridement down to fascia, 05/27. Hypotension, responsive to IVF boluses so far Parkinson's w/ tardive dyskinesia, mostly chair bound ? hx C. diff 2016. soft BM earlier Chronic salas - no sign of infection Plan Plan of Care D/c vanc Cont Zosyn (CrCl 38) BC pending Await GNR ID wound - may not grow change to po soon Monitor WBC, renal function and temp Local wound care No need to change Salas - ? trauma causing discoloration OKSANA GORE MD May 30, 2017 07:41
[2017-05-30] MEDS ORDERED: POTASSIUM CHLORIDE 20 MEQ/15 ML ORAL LIQUID. PEG ONE (09:30)
[2017-05-30] MEDS: FUROSEMIDE 20 MG TABLET PO SCH (10:37)
[2017-05-30] MEDS: OLANZapine 5 MG TABLET PO SCH (10:37)
[2017-05-30] MEDS: CHOLECALCIFEROL (VITAMIN D3) 1,000 UNIT TABLET PO SCH (10:37)
[2017-05-30] MEDS: CARBIDOPA/LEVODOPA 25/100MG TABLET PO SCH ×2 (10:38→22:49)
[2017-05-30] MEDS: MULTIVITAMIN with MINERAL TABLET. PO SCH (10:38)
[2017-05-30 11:00] VITALS: BP 113/37
--- NOTE | 2017-05-30 11:08 | PDOC ---
PROGRESS NOTES Chief Complaint Chief Complaint decub wound s/p debridement 05/27 HYpotensive shock needing pressors PAST MEDICAL HISTORY: Parkinson's, anxiety, depression, hypertension, schizophrenia. She is status post PEG tube placement and removal secondary to now resolved dysphagia, probably related to Parkinson's. 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 Over all prog guarded\ Dw RN Vitals Vitals Vital Signs Date Time Temp Pulse Resp B/P (MAP) Pulse Ox O2 Delivery O2 Flow Rate FiO2 05/30/17 11:00 98.1 83 18 113/37 (62) 100 Room Air 98.1 Physical Exam General: Alert, Oriented X3, Cooperative, No acute distress Heart: Regular rate, Normal S1, Normal S2, No murmurs Lungs: Clear, Other Abdomen: Soft Extremities: No clubbing, No cyanosis, No edema Skin: No rashes, Other (wound was not visualized) Labs LABS Laboratory Tests Test 05/30/17 05:30 White Blood Count 9.3 x10^3/uL (4.0-11.0) Red Blood Count 3.45 x10^6/uL (3.50-5.40) Hemoglobin 10.3 g/dL (12.0-15.5) Hematocrit 30.3 % (36.0-47.0) Mean Corpuscular Volume 88 fL (79-100) Mean Corpuscular Hemoglobin 30 pg (25-35) Mean Corpuscular Hemoglobin Concent 34 g/dL (31-37) Red Cell Distribution Width 13.7 % (11.5-14.5) Platelet Count 230 x10^3/uL (140-400) Neutrophils (%) (Auto) 67 % (31-73) Lymphocytes (%) (Auto) 23 % (24-48) Monocytes (%) (Auto) 8 % (0-9) Eosinophils (%) (Auto) 1 % (0-3) Basophils (%) (Auto) 1 % (0-3) Neutrophils # (Auto) 6.3 x10^3uL (1.8-7.7) Lymphocytes # (Auto) 2.1 x10^3/uL (1.0-4.8) Monocytes # (Auto) 0.7 x10^3/uL (0.0-1.1) Eosinophils # (Auto) 0.1 x10^3/uL (0.0-0.7) Basophils # (Auto) 0.1 x10^3/uL (0.0-0.2) Sodium Level 145 mmol/L (136-145) Potassium Level 2.7 mmol/L (3.5-5.1) Chloride Level 112 mmol/L (98-107) Carbon Dioxide Level 24 mmol/L (21-32) Anion Gap 9 (6-14) Blood Urea Nitrogen 5 mg/dL (7-20) Creatinine 0.6 mg/dL (0.6-1.0) Estimated GFR (Cockcroft-Gault) 98.0 Glucose Level 81 mg/dL (70-99) Calcium Level 7.9 mg/dL (8.5-10.1) Review of Systems Review of Systems dementia Assessment and Plan Assessmemt and Plan Problems Medical Problems: (1) Infected decubitus ulcer Status: Acute (2) Moderate protein malnutrition Status: Acute (3) Parkinsons disease Status: Acute Problems: Comment Review of Relevant I have reviewed the following items clovis (where applicable) has been applied. Labs Laboratory Tests Test 05/28/17 14:00 05/28/17 20:00 05/30/17 05:30 Urine Collection Type Unknown Urine Color Red Urine Clarity Cloudy Urine pH 5.5 Urine Specific [place] 1.020 Urine Protein 100 mg/dL (NEG-TRACE) Urine Glucose (UA) Negative mg/dL (NEG) Urine Ketones (Stick) 40 mg/dL (NEG) Urine Blood Large (NEG) Urine Nitrite Negative (NEG) Urine Bilirubin Moderate (NEG) Urine Urobilinogen Dipstick 0.2 mg/dL (0.2 mg/dL) Urine Leukocyte Esterase Large (NEG) Urine RBC Tntc /HPF (0-2) Urine WBC >40 /HPF (0-4) Urine Bacteria 0 /HPF (0-FEW) Vancomycin Level Trough 8.7 mcg/mL (10.0-20.0) Vancomycin Last Dose Date 05/27/17 Vancomycin Last Dose Time 2100 White Blood Count 9.3 x10^3/uL (4.0-11.0) Red Blood Count 3.45 x10^6/uL (3.50-5.40) Hemoglobin 10.3 g/dL (12.0-15.5) Hematocrit 30.3 % (36.0-47.0) Mean Corpuscular Volume 88 fL (79-100) Mean Corpuscular Hemoglobin 30 pg (25-35) Mean Corpuscular Hemoglobin Concent 34 g/dL (31-37) Red Cell Distribution Width 13.7 % (11.5-14.5) Platelet Count 230 x10^3/uL (140-400) Neutrophils (%) (Auto) 67 % (31-73) Lymphocytes (%) (Auto) 23 % (24-48) Monocytes (%) (Auto) 8 % (0-9) Eosinophils (%) (Auto) 1 % (0-3) Basophils (%) (Auto) 1 % (0-3) Neutrophils # (Auto) 6.3 x10^3uL (1.8-7.7) Lymphocytes # (Auto) 2.1 x10^3/uL (1.0-4.8) Monocytes # (Auto) 0.7 x10^3/uL (0.0-1.1) Eosinophils # (Auto) 0.1 x10^3/uL (0.0-0.7) Basophils # (Auto) 0.1 x10^3/uL (0.0-0.2) Sodium Level 145 mmol/L (136-145) Potassium Level 2.7 mmol/L (3.5-5.1) Chloride Level 112 mmol/L (98-107) Carbon Dioxide Level 24 mmol/L (21-32) Anion Gap 9 (6-14) Blood Urea Nitrogen 5 mg/dL (7-20) Creatinine 0.6 mg/dL (0.6-1.0) Estimated GFR (Cockcroft-Gault) 98.0 Glucose Level 81 mg/dL (70-99) Calcium Level 7.9 mg/dL (8.5-10.1) Laboratory Tests Test 05/30/17 05:30 White Blood Count 9.3 x10^3/uL (4.0-11.0) Red Blood Count 3.45 x10^6/uL (3.50-5.40) Hemoglobin 10.3 g/dL (12.0-15.5) Hematocrit 30.3 % (36.0-47.0) Mean Corpuscular Volume 88 fL (79-100) Mean Corpuscular Hemoglobin 30 pg (25-35) Mean Corpuscular Hemoglobin Concent 34 g/dL (31-37) Red Cell Distribution Width 13.7 % (11.5-14.5) Platelet Count 230 x10^3/uL (140-400) Neutrophils (%) (Auto) 67 % (31-73) Lymphocytes (%) (Auto) 23 % (24-48) Monocytes (%) (Auto) 8 % (0-9) Eosinophils (%) (Auto) 1 % (0-3) Basophils (%) (Auto) 1 % (0-3) Neutrophils # (Auto) 6.3 x10^3uL (1.8-7.7) Lymphocytes # (Auto) 2.1 x10^3/uL (1.0-4.8) Monocytes # (Auto) 0.7 x10^3/uL (0.0-1.1) Eosinophils # (Auto) 0.1 x10^3/uL (0.0-0.7) Basophils # (Auto) 0.1 x10^3/uL (0.0-0.2) Sodium Level 145 mmol/L (136-145) Potassium Level 2.7 mmol/L (3.5-5.1) Chloride Level 112 mmol/L (98-107) Carbon Dioxide Level 24 mmol/L (21-32) Anion Gap 9 (6-14) Blood Urea Nitrogen 5 mg/dL (7-20) Creatinine 0.6 mg/dL (0.6-1.0) Estimated GFR (Cockcroft-Gault) 98.0 Glucose Level 81 mg/dL (70-99) Calcium Level 7.9 mg/dL (8.5-10.1) Microbiology 05/28/17 Blood Culture - Preliminary, Resulted NO GROWTH AFTER 2 DAYS 05/27/17 Gram Stain - Final, Complete Medications Current Medications Sodium Chloride 1,000 ml @ 100 mls/hr Q10H IV Last administered on 05/26/17 19:20; Start 05/26/17 at 19:05; Stop 05/27/17 at 05:04; Status DC Ondansetron HCl (Zofran) 4 mg PRN Q8HRS PRN IV NAUSEA/VOMITING; Start at 20:15; Stop 05/27/17 at 20:14; Status DC Sodium Chloride 1,000 ml @ 100 mls/hr Q10H IV Last administered on 05/27/17 06:01; Start 05/26/17 at 20:01; Stop 05/27/17 at 20:00; Status DC Acetaminophen (Tylenol) 650 mg PRN Q4HRS PRN PO FEVER; Start 05/26/17 at 20:15 ; Stop 05/27/17 at 20:14; Status DC Piperacillin Sod/ Tazobactam Sod (Zosyn Per Pharmacy) 1 each PRN DAILY PRN MC SEE COMMENTS; Start 05/26/17 at 20:15 Vancomycin HCl (Vanco Per Pharmacy) 1 each PRN DAILY PRN MC SEE COMMENTS Last administered on 05/29/17 00:53; Start 05/26/17 at 20:15; Stop 05/30/17 at 09 :46; Status DC Vancomycin HCl 1.25 gm/Sodium Chloride 250 ml @ 166.667 mls/hr 1X ONCE IV Last administered on 05/26/17 22:08; Start 05/26/17 at 20:30; Stop 05/26/17 at 21:59; Status DC Piperacillin Sod/ Tazobactam Sod 3.375 gm/Sodium Chloride 50 ml @ 100 mls/hr 1X ONCE IV Last administered on 05/26/17 20:23; Start 05/26/17 at 20:15; Stop 05/26/17 at 20:44; Status DC Piperacillin Sod/ Tazobactam Sod 2.25 gm/Sodium Chloride 50 ml @ 100 mls/hr Q6HRS IV Last administered on 05/30/17 10:45; Start 05/27/17 at 00:00 Vancomycin HCl 750 mg/Sodium Chloride 250 ml @ 250 mls/hr Q24H IV Last administered on 05/28/17 20:47; Start 05/27/17 at 21:00; Stop 05/29/17 at 00 :47; Status DC Vancomycin HCl 1 each 1X ONCE MC Last administered on 05/28/17 20:30; Start 05/28/17 at 20:30; Stop 05/28/17 at 20:31; Status DC Pneumococcal Polyvalent Vaccine (Do NOT chart on this placeholder) 1 each PRN DAILY PRN MC DATE RECEIVED UNKNOWN; Start 05/27/17 at 02:15; Status Cancel Atenolol (Tenormin) 50 mg DAILY PO ; Start 05/27/17 at 13:00; Stop 05/28/17 at 10:02; Status DC Carbidopa/Levodopa (Sinemet 25/100) 1 tab BID PO Last administered on 10:38; Start 05/27/17 at 13:00 Vitamin D (Vitamin D3) 1,000 unit DAILY PO Last administered on 05/30/17 10: 37; Start 05/27/17 at 13:00 Furosemide (Lasix) 20 mg DAILY PO Last administered on 05/30/17 10:37; Start 05/27/17 at 13:00 Olanzapine (ZyPREXA) 5 mg DAILY PO Last administered on 05/30/17 10:37; Start 05/27/17 at 13:00 Multivitamins (Thera M Plus) 1 tab DAILY PO Last administered on 05/30/17 10: 38; Start 05/27/17 at 13:00 Ondansetron HCl (Zofran) 4 mg PRN Q6HRS PRN IV NAUSEA/VOMITING; Start at 14:45 Ondansetron HCl (Zofran) 4 mg PRN Q6HRS PRN IV NAUSEA/VOMITING; Start at 15:30; Stop 05/28/17 at 15:29; Status DC Fentanyl Citrate (Fentanyl 2ml Vial) 25 mcg PRN Q5MIN PRN IV MILD PAIN; Start 05/27/17 at 15:30; Stop 05/28/17 at 15:29; Status DC Fentanyl Citrate (Fentanyl 2ml Vial) 50 mcg PRN Q5MIN PRN IV MODERATE PAIN; Start 05/27/17 at 15:30; Stop 05/28/17 at 15:29; Status DC Morphine Sulfate 1 mg PRN Q10MIN PRN IV SEVERE PAIN; Start 05/27/17 at 15:30; Stop 05/28/17 at 15:29; Status DC Ringer's Solution 1,000 ml @ 0 mls/hr Q0M IV Last administered on 05/27/17t 15:28; Start 05/27/17 at 15:18; Stop 05/28/17 at 03:17; Status DC Lidocaine HCl (Xylocaine-Mpf 1% Vial) 2 ml PRN 1X PRN ID PRIOR TO IV START; Start 05/27/17 at 15:30; Stop 05/28/17 at 15:29; Status DC Hydromorphone HCl (Dilaudid) 0.5 mg PRN Q10MIN PRN IV SEV PAIN, Second choice; Start 05/27/17 at 15:30; Stop 05/28/17 at 15:29; Status DC Prochlorperazine Edisylate (Compazine) 5 mg PACU PRN PRN IV NAUSEA, MRX1; Start 05/27/17 at 15:30; Stop 05/28/17 at 15:29; Status DC Midazolam HCl (Versed) 2 mg STK-MED ONCE .ROUTE ; Start 05/27/17 at 15:18; Stop 05/27/17 at 15:19; Status DC Propofol 20 ml @ As Directed STK-MED ONCE IV ; Start 05/27/17 at 15:18; Stop 05/27/17 at 15:19; Status DC Lidocaine HCl (Lidocaine Pf 2% Vial) 5 ml STK-MED ONCE .ROUTE ; Start 05/27/17 at 15:18; Stop 05/27/17 at 15:19; Status DC Bupivacaine HCl/ Epinephrine Bitart (Marcaine-Epi 0.25%-[id number]) 50 ml STK-MED ONCE .ROUTE ; Start 05/27/17 at 14:34; Stop 05/27/17 at 15:34; Status DC Morphine Sulfate 2 mg PRN Q2HR PRN IV SEVERE PAIN Last administered on t 05:02; Start 05/28/17 at 04:45 Oxycodone/ Acetaminophen (Percocet 5/325) 1 tab PRN Q6HRS PRN PO SEVERE PAIN; Start 05/28/17 at 04:45 Sodium Chloride 500 ml @ 500 mls/hr 1X ONCE IV Last administered on 08:00; Start 05/28/17 at 08:00; Stop 05/28/17 at 08:59; Status DC Sodium Chloride 1,000 ml @ 100 mls/hr Q10H IV Last administered on 05/30/17 10:39; Start 05/28/17 at 09:00 Norepinephrine Bitartrate 250 ml @ 0 mls/hr CONT PRN IV SEE I/O RECORD; Start 05/28/17 at 09:45; Stop 05/30/17 at 09:18; Status DC Sodium Chloride 1,000 ml @ 100 mls/hr Q10H IV Last administered on 05/28/17 12:40; Start 05/28/17 at 12:45; Stop 05/29/17 at 09:53; Status DC Vancomycin HCl 1 gm/Sodium Chloride 250 ml @ 250 mls/hr Q24H IV Last administered on 05/29/17 21:49; Start 05/29/17 at 21:00; Stop 05/30/17 at 09 :46; Status DC Vancomycin HCl 1 each 1X ONCE MC ; Start 05/31/17 at 20:30; Stop 05/31/17 at 20:30; Status DC Potassium Chloride (KCl Oral Soln) 80 meq 1X ONCE PEG ; Start 05/30/17 at 09: 30; Stop 05/30/17 at 09:31; Status DC Active Scripts Active Reported Multi-Day Plus Iron Tablet (Multivitamin/Iron/Folic Acid) 1 Each Tablet 1 Each PO Carbidopa-Levodopa 25-100 Tab (Carbidopa/Levodopa) 1 Each Tablet 1 Each PO BID Vitamin D3 (Cholecalciferol (Vitamin D3)) 1,000 Unit Tablet 1,000 Unit PO DAILY Furosemide 20 Mg Tablet 20 Mg PO DAILY Atenolol 50 Mg Tablet 50 Mg PO DAILY Olanzapine 5 Mg Tablet 5 Mg PO DAILY Vitals/I & O Vital Sign - Last 24 Hours 05/29/17 05/29/17 05/29/17 05/29/17 13:40 15:00 16:03 19:00 Temp 98.4 98.1 97.9 98.4 98.1 97.9 Pulse 80 40 54 Resp 16 16 18 B/P (MAP) 123/55 (77) 123/99 (107) 116/66 (83) Pulse Ox 91 96 95 O2 Delivery Room Air Room Air Room Air Room Air 05/29/17 05/29/17 05/30/17 05/30/17 20:00 23:00 03:00 07:00 Temp 99.2 98.8 98.8 99.2 98.8 98.8 Pulse 63 58 48 Resp 14 12 16 B/P (MAP) 123/85 (98) 118/62 (80) 127/42 (70) Pulse Ox 96 95 97 O2 Delivery Room Air Room Air Room Air Room Air 05/30/17 11:00 Temp 98.1 98.1 Pulse 83 Resp 18 B/P (MAP) 113/37 (62) Pulse Ox 100 O2 Delivery Room Air Intake and Output 05/30/17 05/30/17 05/31/17 15:00 23:00 07:00 Intake Total 100 ml Balance 100 ml Nutrition Consultation Dietary Evaluation: Recommendations by RD: Increase Calorie Intake, Protein supplementation Comments: REC adv to regular diet when able REC [place] with all meals to aid in wound healing continue mvi and vit c to aid w/ wound healing per wound protocal Expected Outcomes/Goals: to meet > 75% est nutr needs Interpretation of weight loss: >10% in 6 months Malnutrition Findings: Body Fat Depletion (Non Severe: Mild Depletion Weight Status: Appropriate FARZANEH SALES MD May 30, 2017 11:08
[2017-05-30] MEDS ORDERED: IV DEXTROSE 5 %-0.45 % NACL 1,000 ML IV SCH (11:15)
[2017-05-30] MEDS ORDERED: POTASSIUM CHLORIDE 20 MEQ TABLET.ER. PO ONE (11:30)
[2017-05-30] MEDS: POTASSIUM CHLORIDE 30 MEQ in IV 1/2 NORMAL SALINE 1,000 ML IV SCH (12:09)
[2017-05-30] MEDS: POTASSIUM CHLORIDE 10MEQ 100 ML IV SCH ×4 (12:10→17:37)
[2017-05-30 15:00] VITALS: BP 96/44
--- NOTE | 2017-05-30 18:12 | PDOC2 ---
PALLIATIVE CARE Palliative Care Note Palliative Care Consult requested by Dr. Tolliver to address code status and goals of care. Information obtained from medical records, patient and patient's brother Pavan. Patient lives at home with Pavan and another brother Danny. Patient seen earlier 944. Alert and oriented x 3. Denied pain or SOB Diagnosis: Decubitis Ulcer; debridement 05/27. Parkinson Disease with Tardive dyskinesia; Moderate protein malnutrition; Schizophrenia. Post PEG but was removed. PMH: Depression; anxiety; HTN. Discussed Code Status; Patient "hopes" that her heart would not stop or she stop breathing but if it did she would not want to be put on life support and attempt with compressions and shock to restart her heart. She would want her brother Pavan to make her medical decisions if she was unable. Met with Pavan 1340 to discuss plan of care. Pavan was hesitant about her decisions of DNR/DNI but would support her wishes. Pavan does not think she is that sick and not necessary to have that discussion. "She is only here because her Casas catheter leaked and she has a sore on her bottom." "I tried to clean the brown spots off her bottom but she really got upset when I rubbed on them" Patient was being followed by [facility]. 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 He has a problem with po intake at times. 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 Has not walked in a "long long time" States her primary physician is Becca Quesada and she follows her at home as well. Reviewed low albumin (2.9 on this admission; 1.7 in November ; weight loss of approx. 20 # since November. Discussed discharge plan. Likely she will need more complex wound management. If so she will need Group Home for wound care. Discussed alf goals and care. Pavan stated "If you want to kill her off put her in a correction" "I've told her I wouldn't do that." Pavan is agreement for short term correction for wound care. 1730. Spoke with patient again along with Myra DELEON. Patient again stated she did not want to be put on a breathing machine or chest compression if heart stops. Understands she likely would if this were not attempted. Plan: SNU if need for wound care. DNR/DNI requested by patient. Pavan/brother will support her wishes. Will need AD to name Pavan as her DPOA per her request. MELISSA RICKS May 30, 2017 18:12
[2017-05-30 19:20] VITALS: BP 133/65
[2017-05-30 20:48] LABS: CALCIUM 8.1 mg/dL (8.5-10.1); CREATININE 0.7 mg/dL (0.6-1.0); POTASSIUM 3.3 mmol/L (3.5-5.1)
[2017-05-30] MEDS: MORPHINE SULFATE 2 MG/ML DISP.SYRIN. IV PRN (22:54)
[2017-05-30 23:49] VITALS: BP 146/83
[2017-05-31] MEDS: PIPERACILLIN/TAZOBACTAM 2.25 GM in IV NORMAL SALINE 50ML 50 ML IV SCH ×2 (00:39→05:37)
[2017-05-31] MEDS: POTASSIUM CHLORIDE 30 MEQ in IV 1/2 NORMAL SALINE 1,000 ML IV SCH ×2 (01:02→14:34)
[2017-05-31 03:00] VITALS: BP 137/70
[2017-05-31 05:20] LABS: BASO # 0.1 x10^3/uL (0.0-0.2); BASO % 1 % (0-3); EOS % 1 % (0-3); HEMATOCRIT 30.3 % (36.0-47.0); HEMOGLOBIN 10.5 g/dL (12.0-15.5); LYMPH # 1.9 x10^3/uL (1.0-4.8); LYMPH % 21 % (24-48); MEAN CORPUSCULAR HEMOGLOBIN 31 pg (25-35); MEAN CORPUSCULAR HGB CONC 35 g/dL (31-37); MEAN CORPUSCULAR VOLUME 89 fL (79-100); MONO % 7 % (0-9); NEUT % 71 % (31-73); PLATELET COUNT 226 x10^3/uL (140-400); RED BLOOD COUNT 3.42 x10^6/uL (3.50-5.40); RED CELL DISTRIBUTION WIDTH 13.7 % (11.5-14.5); WHITE BLOOD COUNT 9.1 x10^3/uL (4.0-11.0)
[2017-05-31 05:48] LABS: CALCIUM 7.9 mg/dL (8.5-10.1); CREATININE 0.6 mg/dL (0.6-1.0); POTASSIUM 3.5 mmol/L (3.5-5.1)
[2017-05-31 07:00] VITALS: BP 125/68
--- NOTE | 2017-05-31 09:10 | PDOC ---
Infectious Disease Note Subjective Subjective Doing ok mild pain. occ nausea ROS ROS GEN: Denies fevers, chills, sweats HEENT: Denies blurred vision, sore throat CV: Denies chest pain RESP: Denies shortness of air, cough GI: Denies n/v/d NEURO: Denies confusion, dizziness MSK: Denies weakness, joint pain/swelling Vital Sign Vital Signs Vital Signs Date Time Temp Pulse Resp B/P (MAP) Pulse Ox O2 Delivery O2 Flow Rate FiO2 05/31/17 07:00 98.3 70 16 125/68 (87) 96 Room Air 98.3 Physical Exam PHYSICAL EXAM GENERAL: Propped up in bed awake, NAD OC/Op - clear LUNGS: Clear HEART: S1 and S2 ABD: Soft, NT, BS active : Salas - urine better EXT: No edema, no cyanosis REHAB AIDE: Awake, answers questions appropriately SKIN: No rash IV: ok Labs Lab Laboratory Tests Test 05/30/17 20:30 05/31/17 04:50 Sodium Level 146 mmol/L (136-145) 145 mmol/L (136-145) Potassium Level 3.3 mmol/L (3.5-5.1) 3.5 mmol/L (3.5-5.1) Chloride Level 111 mmol/L (98-107) 112 mmol/L (98-107) Carbon Dioxide Level 29 mmol/L (21-32) 28 mmol/L (21-32) Anion Gap 6 (6-14) 5 (6-14) Blood Urea Nitrogen 8 mg/dL (7-20) 6 mg/dL (7-20) Creatinine 0.7 mg/dL (0.6-1.0) 0.6 mg/dL (0.6-1.0) Estimated GFR (Cockcroft-Gault) 82.0 98.0 Glucose Level 120 mg/dL (70-99) 88 mg/dL (70-99) Calcium Level 8.1 mg/dL (8.5-10.1) 7.9 mg/dL (8.5-10.1) White Blood Count 9.1 x10^3/uL (4.0-11.0) Red Blood Count 3.42 x10^6/uL (3.50-5.40) Hemoglobin 10.5 g/dL (12.0-15.5) Hematocrit 30.3 % (36.0-47.0) Mean Corpuscular Volume 89 fL (79-100) Mean Corpuscular Hemoglobin 31 pg (25-35) Mean Corpuscular Hemoglobin Concent 35 g/dL (31-37) Red Cell Distribution Width 13.7 % (11.5-14.5) Platelet Count 226 x10^3/uL (140-400) Neutrophils (%) (Auto) 71 % (31-73) Lymphocytes (%) (Auto) 21 % (24-48) Monocytes (%) (Auto) 7 % (0-9) Eosinophils (%) (Auto) 1 % (0-3) Basophils (%) (Auto) 1 % (0-3) Neutrophils # (Auto) 6.4 x10^3uL (1.8-7.7) Lymphocytes # (Auto) 1.9 x10^3/uL (1.0-4.8) Monocytes # (Auto) 0.6 x10^3/uL (0.0-1.1) Eosinophils # (Auto) 0.1 x10^3/uL (0.0-0.7) Basophils # (Auto) 0.1 x10^3/uL (0.0-0.2) Magnesium Level 1.8 mg/dL (1.8-2.4) Objective Assessment ? Fever - post-op Leukocytosis - better Decubitus ulcer w/ necrotic tissue of left buttocks s/p debridement down to fascia, 05/27. Hypotension, responsive to IVF boluses so far Parkinson's w/ tardive dyskinesia, mostly chair bound ? hx C. diff 2016. soft BM earlier Chronic salas - no sign of infection Plan Plan of Care D/c [facility] (CrCl 38) Change to Augmentin until 06/03 Cont wound care OKSANA GORE MD May 31, 2017 09:10
[2017-05-31] MEDS: CARBIDOPA/LEVODOPA 25/100MG TABLET PO SCH ×2 (09:11→23:11)
[2017-05-31] MEDS: MULTIVITAMIN with MINERAL TABLET. PO SCH (09:11)
[2017-05-31] MEDS: CHOLECALCIFEROL (VITAMIN D3) 1,000 UNIT TABLET PO SCH (09:11)
[2017-05-31] MEDS: OLANZapine 5 MG TABLET PO SCH (09:11)
[2017-05-31] MEDS: FUROSEMIDE 20 MG TABLET PO SCH (09:11)
[2017-05-31] MEDS: oxyCODONE/APAP 5/325 1 TAB TABLET PO PRN ×2 (09:15→23:11)
[2017-05-31] MEDS: AMOXICILLIN/K CLAV 500/125MG TABLET. PO SCH ×2 (09:35→23:11)
[2017-05-31 11:00] VITALS: BP 130/63
--- NOTE | 2017-05-31 12:00 | PDOC ---
PROGRESS NOTES Chief Complaint Chief Complaint decub wound s/p debridement 05/27 HYpotensive shock needing pressors PAST MEDICAL HISTORY: Parkinson's, anxiety, depression, hypertension, schizophrenia. She is status post PEG tube placement and removal secondary to now resolved dysphagia, probably related to Parkinson's. CRITICAL hypokalemia MEtabolic enceph, multifactorial, dementia, sepsis etc History of Present Illness History of Present Illness HAd a through discussion with brother/DPOA, Akira HE took care of her x 3 yrs and never had issues with wounds until 1 mo ago when HH was giving "leaky foleys" hence what started as diaper rash now ended up as decub NOw has wound vac by wound care Akira might be more willing to do SNU this time after dw him and pallitaive at bedside NO on PO augmentin by ID PLAN: Sw to SNU screen with wound vac capabilities DNR DNI, now TArget dc tiana to SNU Vitals Vitals Vital Signs Date Time Temp Pulse Resp B/P (MAP) Pulse Ox O2 Delivery O2 Flow Rate FiO2 05/31/17 10:15 16 Room Air 05/31/17 07:00 98.3 70 125/68 (87) 96 98.3 Physical Exam General: Alert, Oriented X3, Cooperative, No acute distress Heart: Regular rate, Normal S1, Normal S2, No murmurs Lungs: Clear, Other Abdomen: Soft Extremities: No clubbing, No cyanosis, No edema Skin: No rashes, Other (wound was not visualized) Labs LABS Laboratory Tests Test 05/30/17 20:30 05/31/17 04:50 Sodium Level 146 mmol/L (136-145) 145 mmol/L (136-145) Potassium Level 3.3 mmol/L (3.5-5.1) 3.5 mmol/L (3.5-5.1) Chloride Level 111 mmol/L (98-107) 112 mmol/L (98-107) Carbon Dioxide Level 29 mmol/L (21-32) 28 mmol/L (21-32) Anion Gap 6 (6-14) 5 (6-14) Blood Urea Nitrogen 8 mg/dL (7-20) 6 mg/dL (7-20) Creatinine 0.7 mg/dL (0.6-1.0) 0.6 mg/dL (0.6-1.0) Estimated GFR (Cockcroft-Gault) 82.0 98.0 Glucose Level 120 mg/dL (70-99) 88 mg/dL (70-99) Calcium Level 8.1 mg/dL (8.5-10.1) 7.9 mg/dL (8.5-10.1) White Blood Count 9.1 x10^3/uL (4.0-11.0) Red Blood Count 3.42 x10^6/uL (3.50-5.40) Hemoglobin 10.5 g/dL (12.0-15.5) Hematocrit 30.3 % (36.0-47.0) Mean Corpuscular Volume 89 fL (79-100) Mean Corpuscular Hemoglobin 31 pg (25-35) Mean Corpuscular Hemoglobin Concent 35 g/dL (31-37) Red Cell Distribution Width 13.7 % (11.5-14.5) Platelet Count 226 x10^3/uL (140-400) Neutrophils (%) (Auto) 71 % (31-73) Lymphocytes (%) (Auto) 21 % (24-48) Monocytes (%) (Auto) 7 % (0-9) Eosinophils (%) (Auto) 1 % (0-3) Basophils (%) (Auto) 1 % (0-3) Neutrophils # (Auto) 6.4 x10^3uL (1.8-7.7) Lymphocytes # (Auto) 1.9 x10^3/uL (1.0-4.8) Monocytes # (Auto) 0.6 x10^3/uL (0.0-1.1) Eosinophils # (Auto) 0.1 x10^3/uL (0.0-0.7) Basophils # (Auto) 0.1 x10^3/uL (0.0-0.2) Magnesium Level 1.8 mg/dL (1.8-2.4) Review of Systems Review of Systems denies - dementia - limited Assessment and Plan Assessmemt and Plan Problems Medical Problems: (1) Infected decubitus ulcer Status: Acute (2) Moderate protein malnutrition Status: Acute (3) Parkinsons disease Status: Acute Problems: Comment Review of Relevant I have reviewed the following items clovis (where applicable) has been applied. Labs Laboratory Tests Test 05/30/17 05:30 05/30/17 20:30 10/17/17 04:50 White Blood Count 9.3 x10^3/uL (4.0-11.0) 9.1 x10^3/uL (4.0-11.0) Red Blood Count 3.45 x10^6/uL (3.50-5.40) 3.42 x10^6/uL (3.50-5.40) Hemoglobin 10.3 g/dL (12.0-15.5) 10.5 g/dL (12.0-15.5) Hematocrit 30.3 % (36.0-47.0) 30.3 % (36.0-47.0) Mean Corpuscular Volume 88 fL (79-100) 89 fL (79-100) Mean Corpuscular Hemoglobin 30 pg (25-35) 31 pg (25-35) Mean Corpuscular Hemoglobin Concent 34 g/dL (31-37) 35 g/dL (31-37) Red Cell Distribution Width 13.7 % (11.5-14.5) 13.7 % (11.5-14.5) Platelet Count 230 x10^3/uL (140-400) 226 x10^3/uL (140-400) Neutrophils (%) (Auto) 67 % (31-73) 71 % (31-73) Lymphocytes (%) (Auto) 23 % (24-48) 21 % (24-48) Monocytes (%) (Auto) 8 % (0-9) 7 % (0-9) Eosinophils (%) (Auto) 1 % (0-3) 1 % (0-3) Basophils (%) (Auto) 1 % (0-3) 1 % (0-3) Neutrophils # (Auto) 6.3 x10^3uL (1.8-7.7) 6.4 x10^3uL (1.8-7.7) Lymphocytes # (Auto) 2.1 x10^3/uL (1.0-4.8) 1.9 x10^3/uL (1.0-4.8) Monocytes # (Auto) 0.7 x10^3/uL (0.0-1.1) 0.6 x10^3/uL (0.0-1.1) Eosinophils # (Auto) 0.1 x10^3/uL (0.0-0.7) 0.1 x10^3/uL (0.0-0.7) Basophils # (Auto) 0.1 x10^3/uL (0.0-0.2) 0.1 x10^3/uL (0.0-0.2) Sodium Level 145 mmol/L (136-145) 146 mmol/L (136-145) 145 mmol/L (136-145) Potassium Level 2.7 mmol/L (3.5-5.1) 3.3 mmol/L (3.5-5.1) 3.5 mmol/L (3.5-5.1) Chloride Level 112 mmol/L (98-107) 111 mmol/L (98-107) 112 mmol/L (98-107) Carbon Dioxide Level 24 mmol/L (21-32) 29 mmol/L (21-32) 28 mmol/L (21-32) Anion Gap 9 (6-14) 6 (6-14) 5 (6-14) Blood Urea Nitrogen 5 mg/dL (7-20) 8 mg/dL (7-20) 6 mg/dL (7-20) Creatinine 0.6 mg/dL (0.6-1.0) 0.7 mg/dL (0.6-1.0) 0.6 mg/dL (0.6-1.0) Estimated GFR (Cockcroft-Gault) 98.0 82.0 98.0 Glucose Level 81 mg/dL (70-99) 120 mg/dL (70-99) 88 mg/dL (70-99) Calcium Level 7.9 mg/dL (8.5-10.1) 8.1 mg/dL (8.5-10.1) 7.9 mg/dL (8.5-10.1) Magnesium Level 1.8 mg/dL (1.8-2.4) Laboratory Tests Test 05/30/17 20:30 05/31/17 04:50 Sodium Level 146 mmol/L (136-145) 145 mmol/L (136-145) Potassium Level 3.3 mmol/L (3.5-5.1) 3.5 mmol/L (3.5-5.1) Chloride Level 111 mmol/L (98-107) 112 mmol/L (98-107) Carbon Dioxide Level 29 mmol/L (21-32) 28 mmol/L (21-32) Anion Gap 6 (6-14) 5 (6-14) Blood Urea Nitrogen 8 mg/dL (7-20) 6 mg/dL (7-20) Creatinine 0.7 mg/dL (0.6-1.0) 0.6 mg/dL (0.6-1.0) Estimated GFR (Cockcroft-Gault) 82.0 98.0 Glucose Level 120 mg/dL (70-99) 88 mg/dL (70-99) Calcium Level 8.1 mg/dL (8.5-10.1) 7.9 mg/dL (8.5-10.1) White Blood Count 9.1 x10^3/uL (4.0-11.0) Red Blood Count 3.42 x10^6/uL (3.50-5.40) Hemoglobin 10.5 g/dL (12.0-15.5) Hematocrit 30.3 % (36.0-47.0) Mean Corpuscular Volume 89 fL (79-100) Mean Corpuscular Hemoglobin 31 pg (25-35) Mean Corpuscular Hemoglobin Concent 35 g/dL (31-37) Red Cell Distribution Width 13.7 % (11.5-14.5) Platelet Count 226 x10^3/uL (140-400) Neutrophils (%) (Auto) 71 % (31-73) Lymphocytes (%) (Auto) 21 % (24-48) Monocytes (%) (Auto) 7 % (0-9) Eosinophils (%) (Auto) 1 % (0-3) Basophils (%) (Auto) 1 % (0-3) Neutrophils # (Auto) 6.4 x10^3uL (1.8-7.7) Lymphocytes # (Auto) 1.9 x10^3/uL (1.0-4.8) Monocytes # (Auto) 0.6 x10^3/uL (0.0-1.1) Eosinophils # (Auto) 0.1 x10^3/uL (0.0-0.7) Basophils # (Auto) 0.1 x10^3/uL (0.0-0.2) Magnesium Level 1.8 mg/dL (1.8-2.4) Microbiology 05/28/17 Blood Culture - Preliminary, Resulted NO GROWTH AFTER 3 DAYS 05/27/17 Gram Stain - Final, Complete Medications Current Medications Sodium Chloride 1,000 ml @ 100 mls/hr Q10H IV Last administered on 05/26/17 19:20; Start 05/26/17 at 19:05; Stop 05/27/17 at 05:04; Status DC Ondansetron HCl (Zofran) 4 mg PRN Q8HRS PRN IV NAUSEA/VOMITING; Start at 20:15; Stop 05/27/17 at 20:14; Status DC Sodium Chloride 1,000 ml @ 100 mls/hr Q10H IV Last administered on 05/27/17 06:01; Start 05/26/17 at 20:01; Stop 05/27/17 at 20:00; Status DC Acetaminophen (Tylenol) 650 mg PRN Q4HRS PRN PO FEVER; Start 05/26/17 at 20:15 ; Stop 05/27/17 at 20:14; Status DC Piperacillin Sod/ Tazobactam Sod (Zosyn Per Pharmacy) 1 each PRN DAILY PRN MC SEE COMMENTS; Start 05/26/17 at 20:15; Stop 05/31/17 at 09:12; Status DC Vancomycin HCl (Vanco Per Pharmacy) 1 each PRN DAILY PRN MC SEE COMMENTS Last administered on 05/29/17 00:53; Start 05/26/17 at 20:15; Stop 05/30/17 at 09 :46; Status DC Vancomycin HCl 1.25 gm/Sodium Chloride 250 ml @ 166.667 mls/hr 1X ONCE IV Last administered on 05/26/17 22:08; Start 05/26/17 at 20:30; Stop 05/26/17 at 21:59; Status DC Piperacillin Sod/ Tazobactam Sod 3.375 gm/Sodium Chloride 50 ml @ 100 mls/hr 1X ONCE IV Last administered on 05/26/17 20:23; Start 05/26/17 at 20:15; Stop 05/26/17 at 20:44; Status DC Piperacillin Sod/ Tazobactam Sod 2.25 gm/Sodium Chloride 50 ml @ 100 mls/hr Q6HRS IV Last administered on 05/31/17 05:37; Start 05/27/17 at 00:00; Stop 05/31/17 at 09:11; Status DC Vancomycin HCl 750 mg/Sodium Chloride 250 ml @ 250 mls/hr Q24H IV Last administered on 05/28/17 20:47; Start 05/27/17 at 21:00; Stop 05/29/17 at 00 :47; Status DC Vancomycin HCl 1 each 1X ONCE MC Last administered on 05/28/17 20:30; Start 05/28/17 at 20:30; Stop 05/28/17 at 20:31; Status DC Pneumococcal Polyvalent Vaccine (Do NOT chart on this placeholder) 1 each PRN DAILY PRN MC DATE RECEIVED UNKNOWN; Start 05/27/17 at 02:15; Status Cancel Atenolol (Tenormin) 50 mg DAILY PO ; Start 05/27/17 at 13:00; Stop 05/28/17 at 10:02; Status DC Carbidopa/Levodopa (Sinemet 25/100) 1 tab BID PO Last administered on 09:11; Start 05/27/17 at 13:00 Vitamin D (Vitamin D3) 1,000 unit DAILY PO Last administered on 05/31/17 09: 11; Start 05/27/17 at 13:00 Furosemide (Lasix) 20 mg DAILY PO Last administered on 05/31/17 09:11; Start 05/27/17 at 13:00 Olanzapine (ZyPREXA) 5 mg DAILY PO Last administered on 05/31/17 09:11; Start 05/27/17 at 13:00 Multivitamins (Thera M Plus) 1 tab DAILY PO Last administered on 05/31/17 09: 11; Start 05/27/17 at 13:00 Ondansetron HCl (Zofran) 4 mg PRN Q6HRS PRN IV NAUSEA/VOMITING; Start at 14:45 Ondansetron HCl (Zofran) 4 mg PRN Q6HRS PRN IV NAUSEA/VOMITING; Start at 15:30; Stop 05/28/17 at 15:29; Status DC Fentanyl Citrate (Fentanyl 2ml Vial) 25 mcg PRN Q5MIN PRN IV MILD PAIN; Start 05/27/17 at 15:30; Stop 05/28/17 at 15:29; Status DC Fentanyl Citrate (Fentanyl 2ml Vial) 50 mcg PRN Q5MIN PRN IV MODERATE PAIN; Start 05/27/17 at 15:30; Stop 05/28/17 at 15:29; Status DC Morphine Sulfate 1 mg PRN Q10MIN PRN IV SEVERE PAIN; Start 05/27/17 at 15:30; Stop 05/28/17 at 15:29; Status DC Ringer's Solution 1,000 ml @ 0 mls/hr Q0M IV Last administered on 05/27/17t 15:28; Start 05/27/17 at 15:18; Stop 05/28/17 at 03:17; Status DC Lidocaine HCl (Xylocaine-Mpf 1% Vial) 2 ml PRN 1X PRN ID PRIOR TO IV START; Start 05/27/17 at 15:30; Stop 05/28/17 at 15:29; Status DC Hydromorphone HCl (Dilaudid) 0.5 mg PRN Q10MIN PRN IV SEV PAIN, Second choice; Start 05/27/17 at 15:30; Stop 05/28/17 at 15:29; Status DC Prochlorperazine Edisylate (Compazine) 5 mg PACU PRN PRN IV NAUSEA, MRX1; Start 05/27/17 at 15:30; Stop 05/28/17 at 15:29; Status DC Midazolam HCl (Versed) 2 mg STK-MED ONCE .ROUTE ; Start 05/27/17 at 15:18; Stop 05/27/17 at 15:19; Status DC Propofol 20 ml @ As Directed STK-MED ONCE IV ; Start 05/27/17 at 15:18; Stop 05/27/17 at 15:19; Status DC Lidocaine HCl (Lidocaine Pf 2% Vial) 5 ml STK-MED ONCE .ROUTE ; Start 05/27/17 at 15:18; Stop 05/27/17 at 15:19; Status DC Bupivacaine HCl/ Epinephrine Bitart (Marcaine-Epi 0.25%-1:[id number]) 50 ml STK-MED ONCE .ROUTE ; Start 05/27/17 at 14:34; Stop 05/27/17 at 15:34; Status DC Morphine Sulfate 2 mg PRN Q2HR PRN IV SEVERE PAIN Last administered on 22:54; Start 05/28/17 at 04:45 Oxycodone/ Acetaminophen (Percocet 5/325) 1 tab PRN Q6HRS PRN PO SEVERE PAIN Last administered on 05/31/17 09:15; Start 05/28/17 at 04:45 Sodium Chloride 500 ml @ 500 mls/hr 1X ONCE IV Last administered on 08:00; Start 05/28/17 at 08:00; Stop 05/28/17 at 08:59; Status DC Sodium Chloride 1,000 ml @ 100 mls/hr Q10H IV Last administered on 05/30/17 10:39; Start 05/28/17 at 09:00; Stop 05/30/17 at 11:06; Status DC Norepinephrine Bitartrate 250 ml @ 0 mls/hr CONT PRN IV SEE I/O RECORD; Start 05/28/17 at 09:45; Stop 05/30/17 at 09:18; Status DC Sodium Chloride 1,000 ml @ 100 mls/hr Q10H IV Last administered on 05/28/17 12:40; Start 05/28/17 at 12:45; Stop 05/29/17 at 09:53; Status DC Vancomycin HCl 1 gm/Sodium Chloride 250 ml @ 250 mls/hr Q24H IV Last administered on 05/29/17 21:49; Start 05/29/17 at 21:00; Stop 05/30/17 at 09 :46; Status DC Vancomycin HCl 1 each 1X ONCE MC ; Start 05/31/17 at 20:30; Stop 05/31/17 at 20:30; Status DC Potassium Chloride (KCl Oral Soln) 80 meq 1X ONCE PEG ; Start 05/30/17 at 09: 30; Stop 05/30/17 at 11:06; Status DC Potassium Chloride 100 ml @ 100 mls/hr Q1H IV Last administered on 05/30/17 17:37; Start 05/30/17 at 11:30; Stop 05/30/17 at 15:29; Status DC Potassium Chloride (Klor-Con) 20 meq 1X ONCE PO ; Start 05/30/17 at 11:30; Stop 05/30/17 at 11:31; Status DC Dextrose/Sodium Chloride 1,000 ml @ 80 mls/hr [id number] IV ; Start 05/30/17 at 11:15; Stop 05/30/17 at 11:15; Status DC Potassium Chloride 30 meq/ Sodium Chloride 1,015 ml @ 75 mls/hr [id number] IV Last administered on 05/30/17 12:09; Start 05/30/17 at 11:30 Amoxicillin/ Clavulanate Potassium (Augmentin 500/ 125mg) 1 tab BID PO Last administered on 05/31/17 09:35; Start 05/31/17 at 10:00 Active Scripts Active Reported Multi-Day Plus Iron Tablet (Multivitamin/Iron/Folic Acid) 1 Each Tablet 1 Each PO Carbidopa-Levodopa 25-100 Tab (Carbidopa/Levodopa) 1 Each Tablet 1 Each PO BID Vitamin D3 (Cholecalciferol (Vitamin D3)) 1,000 Unit Tablet 1,000 Unit PO DAILY Furosemide 20 Mg Tablet 20 Mg PO DAILY Atenolol 50 Mg Tablet 50 Mg PO DAILY Olanzapine 5 Mg Tablet 5 Mg PO DAILY Vitals/I & O Vital Sign - Last 24 Hours 05/30/17 05/30/17 05/30/17 05/30/17 15:00 19:20 20:30 22:54 Temp 98.0 98.1 98.0 98.1 Pulse 64 86 Resp 18 18 17 B/P (MAP) 96/44 (61) 133/65 (87) Pulse Ox 99 94 94 O2 Delivery Room Air Room Air Room Air Room Air 05/30/17 05/30/17 05/31/17 05/31/17 23:30 23:49 03:00 07:00 Temp 97.4 98.8 98.3 97.4 98.8 98.3 Pulse 92 95 70 Resp 18 18 16 B/P (MAP) 146/83 (104) 137/70 (92) 125/68 (87) Pulse Ox 94 94 95 96 O2 Delivery Room Air Room Air Room Air 05/31/17 05/31/17 09:15 10:15 Resp 16 16 O2 Delivery Room Air Room Air Nutrition Consultation Dietary Evaluation: Recommendations by RD: Increase Calorie Intake, Protein supplementation Comments: Added boost plus and Argina[place] with all meals to aid in wound healing continue mvi and vit c to aid w/ wound healing per wound protocal Expected Outcomes/Goals: to meet > 75% est nutr needs- met with po intake >60% , goal ongoing Interpretation of weight loss: >10% in 6 months Malnutrition Findings: Body Fat Depletion (Non Severe: Mild Depletion Weight Status: Appropriate FARZANEH SALES MD May 31, 2017 12:00
[2017-05-31 15:00] VITALS: BP 126/67
--- NOTE | 2017-05-31 16:01 | PDOC2 ---
PALLIATIVE CARE Palliative Care Note Palliative Care Spoke with patient's brother along with Dr. Tolliver. Plan SNU for wound care. Patient will have wound-vac. Pavan/brother wants to take patient home as soon as possible. Code Status: DNR/DNI per patient request. Cameron THOMPSON will assist with discharge plans. MELISSA RICKS May 31, 2017 16:01
[2017-05-31 19:00] VITALS: BP 132/68
[2017-05-31 23:00] VITALS: BP 140/69
[2017-06-01 03:00] VITALS: BP 131/82
[2017-06-01] MEDS: POTASSIUM CHLORIDE 30 MEQ in IV 1/2 NORMAL SALINE 1,000 ML IV SCH (04:57)
[2017-06-01 05:50] LABS: BASO # 0.1 x10^3/uL (0.0-0.2); BASO % 1 % (0-3); EOS % 2 % (0-3); HEMATOCRIT 33.4 % (36.0-47.0); HEMOGLOBIN 11.6 g/dL (12.0-15.5); LYMPH # 1.9 x10^3/uL (1.0-4.8); LYMPH % 23 % (24-48); MEAN CORPUSCULAR HEMOGLOBIN 31 pg (25-35); MEAN CORPUSCULAR HGB CONC 35 g/dL (31-37); MEAN CORPUSCULAR VOLUME 88 fL (79-100); MONO % 7 % (0-9); NEUT % 67 % (31-73); PLATELET COUNT 273 x10^3/uL (140-400); RED BLOOD COUNT 3.78 x10^6/uL (3.50-5.40); WHITE BLOOD COUNT 8.6 x10^3/uL (4.0-11.0)
[2017-06-01 06:00] LABS: CALCIUM 8.9 mg/dL (8.5-10.1); CREATININE 0.6 mg/dL (0.6-1.0); POTASSIUM 3.5 mmol/L (3.5-5.1)
[2017-06-01 07:00] VITALS: BP 143/84
--- NOTE | 2017-06-01 08:25 | PDOC ---
Infectious Disease Note Subjective Subjective Doing ok Eyes need to be wiped ROS ROS GEN: Denies fevers, chills, sweats HEENT: Denies blurred vision, sore throat CV: Denies chest pain RESP: Denies shortness of air, cough GI: Denies n/v/d NEURO: Denies confusion, dizziness MSK: Denies weakness, joint pain/swelling Vital Sign Vital Signs Vital Signs Date Time Temp Pulse Resp B/P (MAP) Pulse Ox O2 Delivery O2 Flow Rate FiO2 06/01/17 03:00 98.3 76 17 131/82 (98) 95 Room Air 98.3 Physical Exam PHYSICAL EXAM GENERAL: Propped up in bed awake, NAD OC/Op - clear. Eyes with post sleep. no sign of infection LUNGS: Clear HEART: S1 and S2 ABD: Soft, NT, BS active : Salas - urine better EXT: No edema, no cyanosis BEEF CATTLE SPECIALIST: Awake, answers questions appropriately SKIN: No rash IV: ok Labs Lab Laboratory Tests Test 05/31/17 21:16 06/01/17 04:35 06/01/17 08:00 Glucose (Fingerstick) 95 mg/dL (70-99) 78 mg/dL (70-99) White Blood Count 8.6 x10^3/uL (4.0-11.0) Red Blood Count 3.78 x10^6/uL (3.50-5.40) Hemoglobin 11.6 g/dL (12.0-15.5) Hematocrit 33.4 % (36.0-47.0) Mean Corpuscular Volume 88 fL (79-100) Mean Corpuscular Hemoglobin 31 pg (25-35) Mean Corpuscular Hemoglobin Concent 35 g/dL (31-37) Red Cell Distribution Width 14.0 % (11.5-14.5) Platelet Count 273 x10^3/uL (140-400) Neutrophils (%) (Auto) 67 % (31-73) Lymphocytes (%) (Auto) 23 % (24-48) Monocytes (%) (Auto) 7 % (0-9) Eosinophils (%) (Auto) 2 % (0-3) Basophils (%) (Auto) 1 % (0-3) Neutrophils # (Auto) 5.8 x10^3uL (1.8-7.7) Lymphocytes # (Auto) 1.9 x10^3/uL (1.0-4.8) Monocytes # (Auto) 0.6 x10^3/uL (0.0-1.1) Eosinophils # (Auto) 0.2 x10^3/uL (0.0-0.7) Basophils # (Auto) 0.1 x10^3/uL (0.0-0.2) Sodium Level 144 mmol/L (136-145) Potassium Level 3.5 mmol/L (3.5-5.1) Chloride Level 109 mmol/L (98-107) Carbon Dioxide Level 30 mmol/L (21-32) Anion Gap 5 (6-14) Blood Urea Nitrogen 7 mg/dL (7-20) Creatinine 0.6 mg/dL (0.6-1.0) Estimated GFR (Cockcroft-Gault) 98.0 Glucose Level 91 mg/dL (70-99) Calcium Level 8.9 mg/dL (8.5-10.1) Objective Assessment ? Fever - post-op Leukocytosis - better Decubitus ulcer w/ necrotic tissue of left buttocks s/p debridement down to fascia, 05/27. Hypotension, responsive to IVF boluses so far Parkinson's w/ tardive dyskinesia, mostly chair bound ? hx C. diff 2015. soft BM earlier Chronic salas - no sign of infection Plan Plan of Care Wiped her eyes and better Cont Augmentin until 06/03 Cont wound care OKSANA GORE MD Jun 01, 2017 08:25
[2017-06-01] MEDS: CARBIDOPA/LEVODOPA 25/100MG TABLET PO SCH (09:52)
[2017-06-01] MEDS: MULTIVITAMIN with MINERAL TABLET. PO SCH (09:52)
[2017-06-01] MEDS: CHOLECALCIFEROL (VITAMIN D3) 1,000 UNIT TABLET PO SCH (09:52)
[2017-06-01] MEDS: AMOXICILLIN/K CLAV 500/125MG TABLET. PO SCH (09:52)
[2017-06-01] MEDS: OLANZapine 5 MG TABLET PO SCH (09:52)
[2017-06-01] MEDS: FUROSEMIDE 20 MG TABLET PO SCH (09:52)
[2017-06-01 11:00] VITALS: BP 146/86
--- NOTE | 2017-06-01 11:11 | PDOC2 ---
PALLIATIVE CARE Palliative Care Note Palliative Care Patient alert. Sitting up in bed. Confirmed Code Status: DNR/DNI. Outside the Hospital DNR/DNI completed. Plan: PP to continue wound care. MELISSA RICKS Jun 01, 2017 11:11
--- NOTE | 2017-06-01 11:58 | PDOC3 ---
Discharge Summary Visit Information Date of Admission: May 26, 2017 Date of Discharge: Jun 01, 2017 Admitting Diagnosis Comment: decub wound s/p debridement 05/27 HYpotensive shock needing pressors PAST MEDICAL HISTORY: Parkinson's, anxiety, depression, hypertension, schizophrenia. She is status post PEG tube placement and removal secondary to now resolved dysphagia, probably related to Parkinson's. CRITICAL hypokalemia MEtabolic enceph, multifactorial, dementia, sepsis etc Final Diagnosis Problems Medical Problems: (1) Infected decubitus ulcer Status: Acute (2) Moderate protein malnutrition Status: Acute (3) Parkinsons disease Status: Acute Brief Hospital Course Allergies Allergies Coded Allergies Type Severity Reaction Last Updated Verified No Known Drug Allergies 11/19/16 No Vital Signs Vital Signs Date Time Temp Pulse Resp B/P (MAP) Pulse Ox O2 Delivery O2 Flow Rate FiO2 06/01/17 11:00 98.9 80 18 146/86 (106) 96 Room Air 98.9 Lab Results Laboratory Tests Test 05/30/17 20:30 05/31/17 04:50 05/31/17 21:16 06/01/17 04:35 Sodium Level 146 mmol/L (136-145) 145 mmol/L (136-145) 144 mmol/L (136-145) Potassium Level 3.3 mmol/L (3.5-5.1) 3.5 mmol/L (3.5-5.1) 3.5 mmol/L (3.5-5.1) Chloride Level 111 mmol/L (98-107) 112 mmol/L (98-107) 109 mmol/L (98-107) Carbon Dioxide Level 29 mmol/L (21-32) 28 mmol/L (21-32) 30 mmol/L (21-32) Anion Gap 6 (6-14) 5 (6-14) 5 (6-14) Blood Urea Nitrogen 8 mg/dL (7-20) 6 mg/dL (7-20) 7 mg/dL (7-20) Creatinine 0.7 mg/dL (0.6-1.0) 0.6 mg/dL (0.6-1.0) 0.6 mg/dL (0.6-1.0) Estimated GFR (Cockcroft-Gault) 82.0 98.0 98.0 Glucose Level 120 mg/dL (70-99) 88 mg/dL (70-99) 91 mg/dL (70-99) Calcium Level 8.1 mg/dL (8.5-10.1) 7.9 mg/dL (8.5-10.1) 8.9 mg/dL (8.5-10.1) White Blood Count 9.1 x10^3/uL (4.0-11.0) 8.6 x10^3/uL (4.0-11.0) Red Blood Count 3.42 x10^6/uL (3.50-5.40) 3.78 x10^6/uL (3.50-5.40) Hemoglobin 10.5 g/dL (12.0-15.5) 11.6 g/dL (12.0-15.5) Hematocrit 30.3 % (36.0-47.0) 33.4 % (36.0-47.0) Mean Corpuscular Volume 89 fL (79-100) 88 fL (79-100) Mean Corpuscular Hemoglobin 31 pg (25-35) 31 pg (25-35) Mean Corpuscular Hemoglobin Concent 35 g/dL (31-37) 35 g/dL (31-37) Red Cell Distribution Width 13.7 % (11.5-14.5) 14.0 % (11.5-14.5) Platelet Count 226 x10^3/uL (140-400) 273 x10^3/uL (140-400) Neutrophils (%) (Auto) 71 % (31-73) 67 % (31-73) Lymphocytes (%) (Auto) 21 % (24-48) 23 % (24-48) Monocytes (%) (Auto) 7 % (0-9) 7 % (0-9) Eosinophils (%) (Auto) 1 % (0-3) 2 % (0-3) Basophils (%) (Auto) 1 % (0-3) 1 % (0-3) Neutrophils # (Auto) 6.4 x10^3uL (1.8-7.7) 5.8 x10^3uL (1.8-7.7) Lymphocytes # (Auto) 1.9 x10^3/uL (1.0-4.8) 1.9 x10^3/uL (1.0-4.8) Monocytes # (Auto) 0.6 x10^3/uL (0.0-1.1) 0.6 x10^3/uL (0.0-1.1) Eosinophils # (Auto) 0.1 x10^3/uL (0.0-0.7) 0.2 x10^3/uL (0.0-0.7) Basophils # (Auto) 0.1 x10^3/uL (0.0-0.2) 0.1 x10^3/uL (0.0-0.2) Magnesium Level 1.8 mg/dL (1.8-2.4) Glucose (Fingerstick) 95 mg/dL (70-99) Test 06/01/17 08:00 06/01/17 11:08 Glucose (Fingerstick) 78 mg/dL (70-99) 120 mg/dL (70-99) Laboratory Tests Test 05/31/17 21:16 06/01/17 04:35 06/01/17 08:00 06/01/17 11:08 Glucose (Fingerstick) 95 mg/dL (70-99) 78 mg/dL (70-99) 120 mg/dL (70-99) White Blood Count 8.6 x10^3/uL (4.0-11.0) Red Blood Count 3.78 x10^6/uL (3.50-5.40) Hemoglobin 11.6 g/dL (12.0-15.5) Hematocrit 33.4 % (36.0-47.0) Mean Corpuscular Volume 88 fL (79-100) Mean Corpuscular Hemoglobin 31 pg (25-35) Mean Corpuscular Hemoglobin Concent 35 g/dL (31-37) Red Cell Distribution Width 14.0 % (11.5-14.5) Platelet Count 273 x10^3/uL (140-400) Neutrophils (%) (Auto) 67 % (31-73) Lymphocytes (%) (Auto) 23 % (24-48) Monocytes (%) (Auto) 7 % (0-9) Eosinophils (%) (Auto) 2 % (0-3) Basophils (%) (Auto) 1 % (0-3) Neutrophils # (Auto) 5.8 x10^3uL (1.8-7.7) Lymphocytes # (Auto) 1.9 x10^3/uL (1.0-4.8) Monocytes # (Auto) 0.6 x10^3/uL (0.0-1.1) Eosinophils # (Auto) 0.2 x10^3/uL (0.0-0.7) Basophils # (Auto) 0.1 x10^3/uL (0.0-0.2) Sodium Level 144 mmol/L (136-145) Potassium Level 3.5 mmol/L (3.5-5.1) Chloride Level 109 mmol/L (98-107) Carbon Dioxide Level 30 mmol/L (21-32) Anion Gap 5 (6-14) Blood Urea Nitrogen 7 mg/dL (7-20) Creatinine 0.6 mg/dL (0.6-1.0) Estimated GFR (Cockcroft-Gault) 98.0 Glucose Level 91 mg/dL (70-99) Calcium Level 8.9 mg/dL (8.5-10.1) Brief Hospital Course Ms. 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 NEeded SNU, At first hard to convince brother re this, PAlliative consulted, DNR DNI and to SNU . Turn q2 Pt seen and examined CAn be shaky on dysphagia diet Time dc 34 mins cumulative paperwork etc Brother Conrad is DPOA Discharge Information Condition at Discharge: Improved, Stable Disposition/Orders: Other (SNU) Scheduled Atenolol (Atenolol), 50 MG PO DAILY, (Reported) Carbidopa/Levodopa (Carbidopa-Levodopa 25-100 Tab), 1 EACH PO BID, (Reported) Cholecalciferol (Vitamin D3) (Vitamin D3), 1,000 UNIT PO DAILY, (Reported) Furosemide (Furosemide), 20 MG PO DAILY, (Reported) Olanzapine (Olanzapine), 5 MG PO DAILY, (Reported) Miscellaneous Medications Multivitamin/Iron/Folic Acid (Multi-Day Plus Iron Tablet), 1 EACH PO, (Reported) Discontinued Medications Furosemide (Furosemide), 40 MG PO, (Reported) FARZANEH SALES MD Jun 01, 2017 11:58
[2017-06-01 15:00] VITALS: BP 133/86
== END 2017-06-01 15:50 | DRG 853 ==
LOC: ER 17:22 → 6 SOUTH 20:15 → 1 WEST ICU 05-28 10:02 → 4 NORTH 05-29 13:31
PROVIDERS: ADMIT Internal Medicine; ATTEND Internal Medicine
PROC: 0KBP0ZZ Excision of Left Hip Muscle, Open Approach (ICD-10-PCS; principal; 2017-05-27 15:30)
DX: A41.9 Sepsis, unspecified organism (principal); R65.21 Severe sepsis with septic shock; L89.324 Pressure ulcer of left buttock, stage 4; G93.41 Metabolic encephalopathy; E44.0 Moderate protein-calorie malnutrition; I11.0 Hypertensive heart disease with heart failure; G20 Parkinson's disease; I50.9 Heart failure, unspecified; Z68.1 Body mass index [BMI] 19.9 or less, adult; F03.90 Unspecified dementia, unspecified severity, without behavioral disturbance, psychotic disturbance, mood disturbance, and anxiety; E86.0 Dehydration; F20.9 Schizophrenia, unspecified; I25.10 Atherosclerotic heart disease of native coronary artery without angina pectoris; K21.9 Gastro-esophageal reflux disease without esophagitis; Z66 Do not resuscitate; Z90.710 Acquired absence of both cervix and uterus; Z93.1 Gastrostomy status; Z99.3 Dependence on wheelchair; E87.6 Hypokalemia; F41.8 Other specified anxiety disorders; Z51.5 Encounter for palliative care
CPT/HCPCS: 36415; 73502; 80048; 80053; 80202; 81001; 82962; 83605; 83735; 85025; 87040; 87071; 87075; 87186; 87205; 87641; 93306; 96361; 96365; 96375; J2250; J2270; J2543; J2704; J3370; J3480; J7030; J7040; J7050; J7120; 99285-25; J2001

== ENCOUNTER 2017-06-24 13:08 | Inpatient (IN) | payer MEDICARE, BC ==
[~2017-06-24] VITALS: Ht 152.4 cm; Wt 36.3 kg
[~2017-06-24 13:08] MED LIST changes: +CARB1TAB22 PO; +MULT-557 PO
[2017-06-24 14:04] LABS: BASO % 0 % (0-3); EOS % 0 % (0-3); HEMATOCRIT 44.1 % (36.0-47.0); HEMOGLOBIN 14.1 g/dL (12.0-15.5); LYMPH # 1.5 x10^3/uL (1.0-4.8); LYMPH % 13 % (24-48); MEAN CORPUSCULAR HEMOGLOBIN 30 pg (25-35); MEAN CORPUSCULAR HGB CONC 32 g/dL (31-37); MEAN CORPUSCULAR VOLUME 93 fL (79-100); MONO % 6 % (0-9); NEUT % 81 % (31-73); PLATELET COUNT 224 x10^3/uL (140-400); RED BLOOD COUNT 4.76 x10^6/uL (3.50-5.40); RED CELL DISTRIBUTION WIDTH 14.4 % (11.5-14.5); WHITE BLOOD COUNT 11.1 x10^3/uL (4.0-11.0)
--- NOTE | 2017-06-24 14:04 | EKG ---
[facility] [address] [place] [address] Test Date: 2017-06-24 Test Time: 13:38:03 Pat Name: LAURA ARROYO Department: Room: Gender: F Supervisor Irrigation: : 1945 Requested By: LATONIA MCDOWELL Order Number: [id number] Reading MD: Israel Borrego MD Measurements Intervals [place] Rate: 89 P: TX: QRS: -42 QRSD: 80 T: 69 QT: 352 QTc: 435 Interpretive Statements SR PAC'S Electronically Signed On 06-27-2017 10:54:31 [employer] by Israel Borrego MD
[2017-06-24 14:06] LABS: BILIRUBIN,URINE NEGATIVE (NEG); GLUCOSE,URINE NEGATIVE (NEG); NITRITE,URINE POSITIVE (NEG); PH,URINE 6.5; PROTEIN,URINE 30 mg/dL (NEG-TRACE); UROBILINOGEN,URINE 0.2 mg/dL (0.2 mg/dL)
[2017-06-24] MEDS ORDERED: VANCOMYCIN PER PHARMACY MC PRN (14:15)
[2017-06-24] MEDS ORDERED: IV RINGERS,LACTATED 500ML 500 ML IV ONE (14:15)
[2017-06-24] MEDS ORDERED: PIP/TAZO PER PHARMACY MC PRN (14:15)
[2017-06-24 14:23] LABS: BACTERIA,URINE MANY /HPF (0-FEW); SQUAMOUS EPITHELIAL CELL,UR OCC /LPF; WBC,URINE TNTC /HPF (0-4)
[2017-06-24 14:25] LABS: CALCIUM 10.6 mg/dL (8.5-10.1); CREATININE 0.9 mg/dL (0.6-1.0); GFR 61.4; POTASSIUM 3.6 mmol/L (3.5-5.1)
[2017-06-24] MEDS ORDERED: VANCOMYCIN 1 GM in IV DEXTROSE 5% 250 ML IV ONE (14:30)
[2017-06-24] MEDS ORDERED: PIPERACILLIN/TAZO IV Push 3.375 GM VIAL. IVP ONE (14:30)
--- NOTE | 2017-06-24 14:37 | RAD ---
EXAM: Chest one view. HISTORY: Fever, pneumonia. COMPARISON: 11/21/2016. FINDINGS: A frontal view of the chest is obtained. There is rotation to the left. There are no confluent infiltrates. There is no pneumothorax or pleural effusion. The heart is not enlarged. Thoracolumbar dextrocurvature may be positional IMPRESSION: 1. No confluent infiltrates.
[2017-06-24 14:44] LABS: ALBUMIN 3.1 g/dL (3.4-5.0); DIRECT BILIRUBIN 0.1 mg/dL (0.0-0.2); TOTAL BILIRUBIN 0.4 mg/dL (0.2-1.0); TOTAL PROTEIN 6.9 g/dL (6.4-8.2)
[2017-06-24] MEDS ORDERED: HYDROmorphone 2 MG/ML VIAL IV PRN (14:45)
[2017-06-24] MEDS ORDERED: ONDANSETRON PF 4 MG/2 ML VIAL. IV PRN (15:15)
[2017-06-24] MEDS ORDERED: MORPHINE SULFATE 4 MG/ML DISP.SYRIN. IV PRN (15:15)
--- NOTE | 2017-06-24 15:25 | PDOC1 ---
History and Physical Date of Admission Date of Admission DATE: 06/24/17 TIME: 15:14 Identification/Chief Complaint Chief Complaint confused, fevers Problems: Source Source: Caregiver, Chart review, Patient History of Present Illness History of Present Illness 71 y.o female, Pavan is her brother and is DPOA, known to me last admit, for the ff: Date of Admission: May 26, 2017 Date of Discharge: Jun 01, 2017 Admitting Diagnosis Comment: decub wound s/p debridement 05/27 HYpotensive shock needing pressors PAST MEDICAL HISTORY: Parkinson's, anxiety, depression, hypertension, schizophrenia. She is status post PEG tube placement and removal secondary to now resolved dysphagia, probably related to Parkinson's. CRITICAL hypokalemia MEtabolic enceph, multifactorial, dementia, sepsis etc I dcd to [facility] and has been there eversince. She has a decub ulcer and wound vac there, that Pavan claims they have been opening up everyday when what he was told was q3-4 days, some fevers there and dec PO few days now. She can be awake and talk, communicate but needs help in feeding, so this is a change, She is found to have uTI again, She also still has wound vac, temp at ER, WBC 11 , NA 153 new to pt (she never had last admit), Started on epiric broad spectrum abx. I did ask Pavan re code status, and knowing him from last admit, I was not surprised re the FULL code decision, but he is a reasonable leo and when the time comes he sees no improvemnt I do believe he will revert this code status, He was told that the wound was getting smaller over there Past Medical History Cardiovascular: CHF, HTN Pulmonary: No pertinent hx CENTRAL NERVOUS SYSTEM: Other Hepatobiliary: No pertinent hx Psych: Anxiety, Addictions, Schizophrenia Musculoskeletal: low back pain Renal/: Other Past Surgical History Past Surgical History: Hysterectomy, Other (wound vac decub ) Family History Family History: No Significant Social History Smoke: No ALCOHOL: none Drugs: None Current Medications Current Medications Current Medications Vancomycin HCl (Vanco Per Pharmacy) 1 each PRN DAILY PRN MC SEE COMMENTS; Start 06/24/17 at 14:15; Status UNV Piperacillin Sod/ Tazobactam Sod (Zosyn Per Pharmacy) 1 each PRN DAILY PRN MC SEE COMMENTS; Start 06/24/17 at 14:15; Status UNV Ringer's Solution 500 ml @ 500 mls/hr 1X ONCE IV Last administered on 14:15; Start 06/24/17 at 14:15; Stop 06/24/17 at 15:14; Status DC Vancomycin HCl 1 gm/Dextrose 250 ml @ 250 mls/hr 1X ONCE IV Last administered on 06/24/17 14:56; Start 06/24/17 at 14:30; Stop 06/24/17 at 15 :29 Piperacillin Sod/ Tazobactam Sod (Zosyn) 3.375 gm 1X ONCE IVP Last administered on 06/24/17 14:40; Start 06/24/17 at 14:30; Stop 06/24/17 at 14 :31; Status DC Hydromorphone HCl (Dilaudid) 0.5 mg PRN Q30MIN PRN IV SEVERE PAIN Last administered on 06/24/17 14:55; Start 06/24/17 at 14:45 Ondansetron HCl (Zofran) 4 mg PRN Q8HRS PRN IV NAUSEA/VOMITING; Start at 15:15; Stop 06/25/17 at 15:14 Morphine Sulfate 2 mg PRN Q2HR PRN IV PAIN; Start 06/24/17 at 15:15; Stop 07/01 at 15:14 Famotidine (Pepcid) 20 mg QHS IVP ; Start 06/24/17 at 21:00; Status UNV Enoxaparin Sodium (Lovenox 30mg Syringe) 30 mg Q24H SQ ; Start 06/24/17 at 15: 15; Status UNV Acetaminophen (Tylenol) 325 mg PRN Q6HRS PRN OK MILD PAIN / TEMP; Start at 15:15; Status UNV Sodium Chloride 1,000 ml @ 100 mls/hr Q10H IV ; Start 06/24/17 at 15:15; Status UNV Active Scripts Active Reported Multi-Day Plus Iron Tablet (Multivitamin/Iron/Folic Acid) 1 Each Tablet 1 Each PO Carbidopa-Levodopa 25-100 Tab (Carbidopa/Levodopa) 1 Each Tablet 1 Each PO BID Vitamin D3 (Cholecalciferol (Vitamin D3)) 1,000 Unit Tablet 1,000 Unit PO DAILY Furosemide 20 Mg Tablet 20 Mg PO DAILY Olanzapine 5 Mg Tablet 5 Mg PO DAILY Allergies Allergies: Coded Allergies: No Known Drug Allergies (Unverified , 11/19/16) ROS Review of System limited, confused Physical Exam General: No acute distress, Other (shakes, chronic contractures bilateral hands , no swelling legs, minimal subQ tissue) HEENT: PERRLA, EOMI Lungs: Clear to auscultation, Normal air movement Heart: S1S2, RRR, no thrills, no rubs, no gallops, no murmurs Cardiovascular: S1 Breasts: Normal, Rt breast nml w/o mass, Lt breast nml w/o mass, Nipples normal Abdomen: Normal bowel sounds, Soft, No tenderness, No hepatosplenomegaly, No masses Rectal Exam: not examined PELVIC: Nml ext genitalia Extremities: Other (contractures uE, decub wound with wound vac) Neuro: Normal gait, Normal speech, Strength at 5/5 X4 ext, Normal tone, Sensation intact, Cranial nerves 3-12 NL, Reflexes 2+ Vitals Vitals Vital Signs Date Time Temp Pulse Resp B/P (MAP) Pulse Ox O2 Delivery O2 Flow Rate FiO2 06/24/17 14:55 Room Air 06/24/17 13:15 100.0 108 20 96/74 (81) 95 100.0 Labs Labs Laboratory Tests Test 06/24/17 13:50 06/24/17 13:55 Urine Color Yellow Urine Clarity Turbid Urine pH 6.5 Urine Specific [place] 1.020 Urine Protein 30 mg/dL (NEG-TRACE) Urine Glucose (UA) Negative mg/dL (NEG) Urine Ketones (Stick) Negative mg/dL (NEG) Urine Blood Large (NEG) Urine Nitrite Positive (NEG) Urine Bilirubin Negative (NEG) Urine Urobilinogen Dipstick 0.2 mg/dL (0.2 mg/dL) Urine Leukocyte Esterase Large (NEG) Urine RBC 3-5 /HPF (0-2) Urine WBC Tntc /HPF (0-4) Urine Squamous Epithelial Cells Occ /LPF Urine Bacteria Many /HPF (0-FEW) White Blood Count 11.1 x10^3/uL (4.0-11.0) Red Blood Count 4.76 x10^6/uL (3.50-5.40) Hemoglobin 14.1 g/dL (12.0-15.5) Hematocrit 44.1 % (36.0-47.0) Mean Corpuscular Volume 93 fL (79-100) Mean Corpuscular Hemoglobin 30 pg (25-35) Mean Corpuscular Hemoglobin Concent 32 g/dL (31-37) Red Cell Distribution Width 14.4 % (11.5-14.5) Platelet Count 224 x10^3/uL (140-400) Neutrophils (%) (Auto) 81 % (31-73) Lymphocytes (%) (Auto) 13 % (24-48) Monocytes (%) (Auto) 6 % (0-9) Eosinophils (%) (Auto) 0 % (0-3) Basophils (%) (Auto) 0 % (0-3) Neutrophils # (Auto) 9.0 x10^3uL (1.8-7.7) Lymphocytes # (Auto) 1.5 x10^3/uL (1.0-4.8) Monocytes # (Auto) 0.6 x10^3/uL (0.0-1.1) Eosinophils # (Auto) 0.0 x10^3/uL (0.0-0.7) Basophils # (Auto) 0.0 x10^3/uL (0.0-0.2) Sodium Level 153 mmol/L (136-145) Potassium Level 3.6 mmol/L (3.5-5.1) Chloride Level 115 mmol/L (98-107) Carbon Dioxide Level 32 mmol/L (21-32) Anion Gap 6 (6-14) Blood Urea Nitrogen 31 mg/dL (7-20) Creatinine 0.9 mg/dL (0.6-1.0) Estimated GFR (Cockcroft-Gault) 61.4 Glucose Level 137 mg/dL (70-99) Calcium Level 10.6 mg/dL (8.5-10.1) Total Bilirubin 0.4 mg/dL (0.2-1.0) Direct Bilirubin 0.1 mg/dL (0.0-0.2) Aspartate Amino Transf (AST/SGOT) 16 U/L (15-37) Alanine Aminotransferase (ALT/SGPT) 11 U/L (14-59) Alkaline Phosphatase 62 U/L (46-116) Troponin I Quantitative < 0.017 ng/mL (0.000-0.055) Total Protein 6.9 g/dL (6.4-8.2) Albumin 3.1 g/dL (3.4-5.0) Lipase 479 U/L (73-393) Laboratory Tests Test 06/24/17 13:50 06/24/17 13:55 Urine Color Yellow Urine Clarity Turbid Urine pH 6.5 Urine Specific [place] 1.020 Urine Protein 30 mg/dL (NEG-TRACE) Urine Glucose (UA) Negative mg/dL (NEG) Urine Ketones (Stick) Negative mg/dL (NEG) Urine Blood Large (NEG) Urine Nitrite Positive (NEG) Urine Bilirubin Negative (NEG) Urine Urobilinogen Dipstick 0.2 mg/dL (0.2 mg/dL) Urine Leukocyte Esterase Large (NEG) Urine RBC 3-5 /HPF (0-2) Urine WBC Tntc /HPF (0-4) Urine Squamous Epithelial Cells Occ /LPF Urine Bacteria Many /HPF (0-FEW) White Blood Count 11.1 x10^3/uL (4.0-11.0) Red Blood Count 4.76 x10^6/uL (3.50-5.40) Hemoglobin 14.1 g/dL (12.0-15.5) Hematocrit 44.1 % (36.0-47.0) Mean Corpuscular Volume 93 fL (79-100) Mean Corpuscular Hemoglobin 30 pg (25-35) Mean Corpuscular Hemoglobin Concent 32 g/dL (31-37) Red Cell Distribution Width 14.4 % (11.5-14.5) Platelet Count 224 x10^3/uL (140-400) Neutrophils (%) (Auto) 81 % (31-73) Lymphocytes (%) (Auto) 13 % (24-48) Monocytes (%) (Auto) 6 % (0-9) Eosinophils (%) (Auto) 0 % (0-3) Basophils (%) (Auto) 0 % (0-3) Neutrophils # (Auto) 9.0 x10^3uL (1.8-7.7) Lymphocytes # (Auto) 1.5 x10^3/uL (1.0-4.8) Monocytes # (Auto) 0.6 x10^3/uL (0.0-1.1) Eosinophils # (Auto) 0.0 x10^3/uL (0.0-0.7) Basophils # (Auto) 0.0 x10^3/uL (0.0-0.2) Sodium Level 153 mmol/L (136-145) Potassium Level 3.6 mmol/L (3.5-5.1) Chloride Level 115 mmol/L (98-107) Carbon Dioxide Level 32 mmol/L (21-32) Anion Gap 6 (6-14) Blood Urea Nitrogen 31 mg/dL (7-20) Creatinine 0.9 mg/dL (0.6-1.0) Estimated GFR (Cockcroft-Gault) 61.4 Glucose Level 137 mg/dL (70-99) Calcium Level 10.6 mg/dL (8.5-10.1) Total Bilirubin 0.4 mg/dL (0.2-1.0) Direct Bilirubin 0.1 mg/dL (0.0-0.2) Aspartate Amino Transf (AST/SGOT) 16 U/L (15-37) Alanine Aminotransferase (ALT/SGPT) 11 U/L (14-59) Alkaline Phosphatase 62 U/L (46-116) Troponin I Quantitative < 0.017 ng/mL (0.000-0.055) Total Protein 6.9 g/dL (6.4-8.2) Albumin 3.1 g/dL (3.4-5.0) Lipase 479 U/L (73-393) VTE Prophylaxis Ordered VTE Prophylaxis Devices: Yes VTE Pharmacological Prophylaxi: Yes Assessment/Plan Assessment/Plan 1. COmplicated, recurrent UTI 2. Pressure/decub ulcer with wound vac 3. Metabolic enceph in a geriatric sec to above 4,. BEd bound/chronic contractures 5. Severe PCM 6. SNU resident 7. Severe sepsis with hypotension, infectious 8. HYpernatremia, severe, critical sec to POOr po 9. Hypercalcemia sec to dehydration 10. FUll code PLAN: Admit 2MN Check lactate Agree with LR bolus then NS hydrate for hypotension and hypernat and hypercal I zana BELIEVE SHE IS VERY DRY hence her elytes Recheck tmr after IVF PPI and DVT ppx Nutrition consult for severe PCM NPO for now till [employer] Turn q2 PT/OT Ok for sips of meds if passes bedside Swallow eval Empiric abx Urine cx Blood cx WOF further hypotension Would consult ID sec to complicated UTI, hypotension and decub wound Seen at ER [facility] the DPOA FULL CODE for now FARZANEH SALES MD Jun 24, 2017 15:25
[2017-06-24] MEDS ORDERED: ACETAMINOPHEN 325 MG SUPP.RECT. PR PRN (15:30)
--- NOTE | 2017-06-24 15:30 | PHYS DOC ---
Past Medical History Past Medical History: Anxiety, Depression, Hypertension, Schizophrenia, Other Additional Past Medical Histor: Dysphagia - resolved., poss chf, PARKINSONS, LARGE LEFT BUTTOCK WOUND Past Surgical History: Hysterectomy, Other Additional Past Surgical Histo: Peg tube placement and removal, bilat pedal edema Alcohol Use: Rarely Drug Use: None Adult General Chief Complaint Chief Complaint: ABNORMAL LABS HPI HPI 71-year-old female presenting to the emergency department from local alf for having abnormal labs including a high sodium. The patient has left buttock pain that is sharp moderate throbbing and without alleviating factors. She has a chronic sacral wound with a wound VAC that was placed in our hospital previously on admission. She has a Casas in place as well. The patient has been having fevers at her alf. Onset 3-4 days. Location left sacral wound, urinary. Duration intermittent. Review of systems is negative for chest pain short of breath, abdominal pain nausea vomiting. All other review of systems is negative unless otherwise noted in history of present illness. ED course: 71-year-old female presenting to the emergency department today for elevated sodium and fevers at the alf. IV established. Blood work obtained. Elevated sodium noted along with elevated chloride possibly from IV fluid administration versus dehydration. Fever likely secondary to UTI on urinalysis. We will begin broad spectrum antibiotics and use lactated ringer for fluid administration given the patient's elevated sodium. Will need to be admitted to the hospital for further evaluation workup and care. Infectious disease consult placed. Of note the patient has a mildly elevated lipase just above the reference range of normal. She does not have vomiting or epigastric abdominal pain clinically not suggestive of pancreatitis. We'll place the patient nothing by mouth and place a GI consult for this. Review of Systems Review of Systems SEE ABOVE. Current Medications Current Medications Current Medications Medications (Trade) Dose Ordered Sig/Zacarias Start Time Stop Time Status Last Admin Dose Admin Hydromorphone HCl (Dilaudid) 0.5 mg PRN Q30MIN PRN 06/24/17 14:45 06/24/17 14:55 0.5 MG Morphine Sulfate 2 mg PRN Q2HR PRN 06/24/17 15:15 06/25/17 15:14 UNV Ondansetron HCl (Zofran) 4 mg PRN Q8HRS PRN 06/24/17 15:15 06/25/17 15:14 Piperacillin Sod/ Tazobactam Sod (Zosyn Per Pharmacy) 1 each PRN DAILY PRN 06/24/17 14:15 UNV Piperacillin Sod/ Tazobactam Sod (Zosyn) 3.375 gm 1X ONCE 06/24/17 14:30 06/24/17 14:31 DC 06/24/17 14:40 3.375 GM Ringer's Solution 500 ml @ 500 mls/hr 1X ONCE 06/24/17 14:15 06/24/17 15:14 06/24/17 14:15 500 MLS/HR Vancomycin HCl (Vanco Per Pharmacy) 1 each PRN DAILY PRN 06/24/17 14:15 UNV Vancomycin HCl 1 gm/Dextrose 250 ml @ 250 mls/hr 1X ONCE 06/24/17 14:30 06/24/17 15:29 06/24/17 14:56 250 MLS/HR Allergies Allergies Allergies Coded Allergies Type Severity Reaction Last Updated Verified No Known Drug Allergies 11/19/16 No Physical Exam Physical Exam SEE ABOVE Constitutional: Well developed, well nourished, no acute distress, non-toxic appearance. [] HENT: Normocephalic, atraumatic, bilateral external ears normal, oropharynx moist, no oral exudates, nose normal. Eyes: PERRLA, EOMI, conjunctiva normal, no discharge. [] Neck: Normal range of motion, no tenderness, supple, no stridor. [] Cardiovascular:Heart rate regular rhythm, no murmur [] Lungs & Thorax: Bilateral breath sounds clear to auscultation Abdomen: Bowel sounds normal, soft, no tenderness, no masses, no pulsatile masses. [] Skin: Patient has known left sacral wound on buttocks. Wound VAC in place. Otherwise no cellulitis. The remainder the skin is warm and dry. Back: No tenderness, no CVA tenderness. [] Extremities: No tenderness, no cyanosis, no clubbing, ROM intact, no edema. Neurologic: Alert and oriented X 3, normal motor function, normal sensory function, no focal deficits noted. [] Psychologic: Affect normal, judgement normal, mood normal. [] Current Patient Data Vital Signs Vital Signs Date Time Temp Pulse Resp B/P (MAP) Pulse Ox O2 Delivery O2 Flow Rate FiO2 06/24/17 14:55 Room Air 06/24/17 13:15 100.0 108 20 96/74 (81) 95 100.0 Lab Values Laboratory Tests Test 06/24/17 13:50 06/24/17 13:55 Urine Color Yellow Urine Clarity Turbid Urine pH 6.5 Urine Specific [place] 1.020 Urine Protein 30 mg/dL (NEG-TRACE) Urine Glucose (UA) Negative mg/dL (NEG) Urine Ketones (Stick) Negative mg/dL (NEG) Urine Blood Large (NEG) Urine Nitrite Positive (NEG) Urine Bilirubin Negative (NEG) Urine Urobilinogen Dipstick 0.2 mg/dL (0.2 mg/dL) Urine Leukocyte Esterase Large (NEG) Urine RBC 3-5 /HPF (0-2) Urine WBC Tntc /HPF (0-4) Urine Squamous Epithelial Cells Occ /LPF Urine Bacteria Many /HPF (0-FEW) White Blood Count 11.1 x10^3/uL (4.0-11.0) H Red Blood Count 4.76 x10^6/uL (3.50-5.40) Hemoglobin 14.1 g/dL (12.0-15.5) Hematocrit 44.1 % (36.0-47.0) Mean Corpuscular Volume 93 fL (79-100) Mean Corpuscular Hemoglobin 30 pg (25-35) Mean Corpuscular Hemoglobin Concent 32 g/dL (31-37) Red Cell Distribution Width 14.4 % (11.5-14.5) Platelet Count 224 x10^3/uL (140-400) Neutrophils (%) (Auto) 81 % (31-73) H Lymphocytes (%) (Auto) 13 % (24-48) L Monocytes (%) (Auto) 6 % (0-9) Eosinophils (%) (Auto) 0 % (0-3) Basophils (%) (Auto) 0 % (0-3) Neutrophils # (Auto) 9.0 x10^3uL (1.8-7.7) H Lymphocytes # (Auto) 1.5 x10^3/uL (1.0-4.8) Monocytes # (Auto) 0.6 x10^3/uL (0.0-1.1) Eosinophils # (Auto) 0.0 x10^3/uL (0.0-0.7) Basophils # (Auto) 0.0 x10^3/uL (0.0-0.2) Sodium Level 153 mmol/L (136-145) H Potassium Level 3.6 mmol/L (3.5-5.1) Chloride Level 115 mmol/L (98-107) H Carbon Dioxide Level 32 mmol/L (21-32) Anion Gap 6 (6-14) Blood Urea Nitrogen 31 mg/dL (7-20) H Creatinine 0.9 mg/dL (0.6-1.0) Estimated GFR (Cockcroft-Gault) 61.4 Glucose Level 137 mg/dL (70-99) H Calcium Level 10.6 mg/dL (8.5-10.1) H Total Bilirubin 0.4 mg/dL (0.2-1.0) Direct Bilirubin 0.1 mg/dL (0.0-0.2) Aspartate Amino Transferase (AST) 16 U/L (15-37) Alanine Aminotransferase (ALT) 11 U/L (14-59) L Alkaline Phosphatase 62 U/L (46-116) Troponin I Quantitative < 0.017 ng/mL (0.000-0.055) Total Protein 6.9 g/dL (6.4-8.2) Albumin 3.1 g/dL (3.4-5.0) L Lipase 479 U/L (73-393) H Laboratory Tests 06/24/17 13:55 Laboratory Tests 06/24/17 13:55 EKG EKG [] Radiology/Procedures Radiology/Procedures [] Course & Med Decision Making Course & Med Decision Making Pertinent Labs and Imaging studies reviewed. (See chart for details) [] Dragon Disclaimer Dragon Disclaimer This electronic medical record was generated, in whole or in part, using a voice recognition dictation system. Departure Departure Impression: Primary Impression: Urinary tract infection Additional Impressions: Leukocytosis Fever Hypernatremia Dehydration Elevated lipase Disposition: 09 ADMITTED INPATIENT Admitting Physician: Alka Tolliver Condition: STABLE Referrals: VIANEY BAEZA NP (PCP) Problem Qualifiers LATONIA MCDOWELL MD Jun 24, 2017 15:30
[2017-06-24 15:42] LABS: MAGNESIUM 2.5 mg/dL (1.8-2.4); PHOSPHORUS 3.1 mg/dL (2.6-4.7)
[2017-06-24 16:00] VITALS: BP 149/80
--- NOTE | 2017-06-24 16:02 | PDOC2 ---
GI CONSULT Reason For Consult: Elevated lipase HPI: HPI: 71 y/o female w/ left buttocks wound w/ wound vac brought from living facility w / hypernatremia. GI asked to see re: lipase of 479. Doesn't participate too much in history but denies abd pain and n/v. Says has no appetite (which I don' t believe is a new symptom for her). Says not having normal bowel movements but cannot tell me if having diarrhea or constipation. No previous pancreatic or gallbladder issues. No previous EGD or colonoscopy. Per previous palliative consult, was declared DNR/DNI. PMH: PMH: tardive dyskinesia, HTN, Parkinson's depression/psych issues, CHF, retinopathy, tinnitus, dysphagia, hiatal hernia, uterine leiomyomata, open PEG placement/ removal, excision LLE mass (benign), DEMETRIUS w/ BSO, debridement of left buttocks wound FH: Family History: Other (unable to obtain) Social History: Smoke: No ALCOHOL: none Drugs: None ROS: Difficult to obtain, per HPI. Vitals: Vitals: Vital Signs Date Time Temp Pulse Resp B/P (MAP) Pulse Ox O2 Delivery O2 Flow Rate FiO2 06/24/17 14:55 Room Air 06/24/17 13:15 100.0 108 20 96/74 (81) 95 100.0 Labs: Labs: Laboratory Tests Test 06/24/17 13:50 06/24/17 13:55 Urine Color Yellow Urine Clarity Turbid Urine pH 6.5 Urine Specific [place] 1.020 Urine Protein 30 mg/dL (NEG-TRACE) Urine Glucose (UA) Negative mg/dL (NEG) Urine Ketones (Stick) Negative mg/dL (NEG) Urine Blood Large (NEG) Urine Nitrite Positive (NEG) Urine Bilirubin Negative (NEG) Urine Urobilinogen Dipstick 0.2 mg/dL (0.2 mg/dL) Urine Leukocyte Esterase Large (NEG) Urine RBC 3-5 /HPF (0-2) Urine WBC Tntc /HPF (0-4) Urine Squamous Epithelial Cells Occ /LPF Urine Bacteria Many /HPF (0-FEW) White Blood Count 11.1 x10^3/uL (4.0-11.0) Red Blood Count 4.76 x10^6/uL (3.50-5.40) Hemoglobin 14.1 g/dL (12.0-15.5) Hematocrit 44.1 % (36.0-47.0) Mean Corpuscular Volume 93 fL (79-100) Mean Corpuscular Hemoglobin 30 pg (25-35) Mean Corpuscular Hemoglobin Concent 32 g/dL (31-37) Red Cell Distribution Width 14.4 % (11.5-14.5) Platelet Count 224 x10^3/uL (140-400) Neutrophils (%) (Auto) 81 % (31-73) Lymphocytes (%) (Auto) 13 % (24-48) Monocytes (%) (Auto) 6 % (0-9) Eosinophils (%) (Auto) 0 % (0-3) Basophils (%) (Auto) 0 % (0-3) Neutrophils # (Auto) 9.0 x10^3uL (1.8-7.7) Lymphocytes # (Auto) 1.5 x10^3/uL (1.0-4.8) Monocytes # (Auto) 0.6 x10^3/uL (0.0-1.1) Eosinophils # (Auto) 0.0 x10^3/uL (0.0-0.7) Basophils # (Auto) 0.0 x10^3/uL (0.0-0.2) Sodium Level 153 mmol/L (136-145) Potassium Level 3.6 mmol/L (3.5-5.1) Chloride Level 115 mmol/L (98-107) Carbon Dioxide Level 32 mmol/L (21-32) Anion Gap 6 (6-14) Blood Urea Nitrogen 31 mg/dL (7-20) Creatinine 0.9 mg/dL (0.6-1.0) Estimated GFR (Cockcroft-Gault) 61.4 Glucose Level 137 mg/dL (70-99) Lactic Acid Level 1.7 mmol/L (0.4-2.0) Calcium Level 10.6 mg/dL (8.5-10.1) Phosphorus Level 3.1 mg/dL (2.6-4.7) Magnesium Level 2.5 mg/dL (1.8-2.4) Total Bilirubin 0.4 mg/dL (0.2-1.0) Direct Bilirubin 0.1 mg/dL (0.0-0.2) Aspartate Amino Transf (AST/SGOT) 16 U/L (15-37) Alanine Aminotransferase (ALT/SGPT) 11 U/L (14-59) Alkaline Phosphatase 62 U/L (46-116) Troponin I Quantitative < 0.017 ng/mL (0.000-0.055) Total Protein 6.9 g/dL (6.4-8.2) Albumin 3.1 g/dL (3.4-5.0) Lipase 479 U/L (73-393) Allergies: Coded Allergies: No Known Drug Allergies (Unverified , 11/19/16) Medications: Current Medications Medications (Trade) Dose Ordered Sig/Zacarias Route PRN Reason Start Time Stop Time Status Last Admin Dose Admin Ringer's Solution 500 ml @ 500 mls/hr 1X ONCE IV 06/24/17 14:15 06/24/17 15:14 DC 06/24/17 14:15 Vancomycin HCl 1 gm/Dextrose 250 ml @ 250 mls/hr 1X ONCE IV 06/24/17 14:30 06/24/17 15:29 DC 06/24/17 14:56 Piperacillin Sod/ Tazobactam Sod (Zosyn) 3.375 gm 1X ONCE IVP 06/24/17 14:30 06/24/17 14:31 DC 06/24/17 14:40 Hydromorphone HCl (Dilaudid) 0.5 mg PRN Q30MIN PRN IV SEVERE PAIN 06/24/17 14:45 06/24/17 14:55 Imaging: Imaging: CXR IMPRESSION: 1. No confluent infiltrates. PE: GEN: NAD HEENT: perioral twitching LUNGS: poor effort, diminished HEART: irregular ABD: S/ND/NT EXTREMITY: +contractures SKIN: No rashes, no jaundice NEURO/PSYCH: awake and alert, flat A/P: A/P: Hypernatremia Left buttocks wound w/ wound vac UTI Minimally elevated lipase ?anorexia -- Clinically not pancreatitis. Okay to try PO. GRACIE DUDLEY Jun 24, 2017 16:02
[2017-06-24] MEDS: IV NORMAL SALINE 1000ML BAG 1,000 ML IV SCH (16:56)
[2017-06-24] MEDS ORDERED: AMOX1TAB58 PO (17:05)
[2017-06-24] MEDS ORDERED: ACET325T9 PO (17:05)
[2017-06-24] MEDS ORDERED: DOCU-109 PO (17:06)
[2017-06-24] MEDS ORDERED: POLY255P PO (17:07)
[2017-06-24] MEDS ORDERED: MECL12.52 PO (17:07)
[2017-06-24] MEDS ORDERED: OXYC-323 PO (17:09)
[2017-06-24] MEDS ORDERED: MIRT15TA3 PO (17:09)
[2017-06-24] MEDS ORDERED: POTASSIUM CHLO10 MEQ PO (17:10)
[2017-06-24] MEDS ORDERED: OLAN5TAB9 PO (17:11)
[2017-06-24 19:00] VITALS: BP 153/76
[2017-06-24] MEDS: PIPERACILLIN/TAZO IV Push 2.25 GM VIAL. IVP SCH (20:24)
[2017-06-24] MEDS: FAMOTIDINE 20 MG/2 ML VIAL IVP SCH (20:24)
[2017-06-24] MEDS: CARBIDOPA/LEVODOPA 25/100MG TABLET PO SCH (21:00)
[2017-06-24 23:00] VITALS: BP 158/77
[2017-06-25] MEDS: PIPERACILLIN/TAZO IV Push 2.25 GM VIAL. IVP SCH ×4 (00:33→19:20)
[2017-06-25] MEDS: IV NORMAL SALINE 1000ML BAG 1,000 ML IV SCH ×3 (02:45→21:18)
[2017-06-25 03:00] VITALS: BP 164/101
[2017-06-25 06:01] LABS: BASO # 0.1 x10^3/uL (0.0-0.2); BASO % 1 % (0-3); EOS % 1 % (0-3); HEMATOCRIT 38.9 % (36.0-47.0); HEMOGLOBIN 12.7 g/dL (12.0-15.5); LYMPH # 1.5 x10^3/uL (1.0-4.8); LYMPH % 14 % (24-48); MEAN CORPUSCULAR HEMOGLOBIN 30 pg (25-35); MEAN CORPUSCULAR HGB CONC 33 g/dL (31-37); MEAN CORPUSCULAR VOLUME 91 fL (79-100); MONO % 4 % (0-9); NEUT % 79 % (31-73); PLATELET COUNT 212 x10^3/uL (140-400); RED BLOOD COUNT 4.27 x10^6/uL (3.50-5.40); RED CELL DISTRIBUTION WIDTH 14.2 % (11.5-14.5); WHITE BLOOD COUNT 10.8 x10^3/uL (4.0-11.0)
[2017-06-25 06:25] LABS: CALCIUM 9.7 mg/dL (8.5-10.1); CREATININE 0.7 mg/dL (0.6-1.0); POTASSIUM 3.2 mmol/L (3.5-5.1)
[2017-06-25 07:00] VITALS: BP 131/53
[2017-06-25] MEDS: ENOXAPARIN 30 MG/0.3 ML SYRINGE. SQ SCH (09:17)
[2017-06-25] MEDS: CARBIDOPA/LEVODOPA 25/100MG TABLET PO SCH ×2 (09:19→21:17)
[2017-06-25] MEDS: MULTIVITAMIN with MINERAL TABLET. PO SCH (09:21)
[2017-06-25] MEDS: ASCORBIC ACID 500 MG TABLET PO SCH (09:22)
[2017-06-25] MEDS: CHOLECALCIFEROL (VITAMIN D3) 1,000 UNIT TABLET PO SCH (09:22)
[2017-06-25 10:47] VITALS: BP 135/60
--- NOTE | 2017-06-25 12:41 | PDOC ---
PROGRESS NOTES Chief Complaint Chief Complaint 1. COmplicated, recurrent UTI 2. Pressure/decub ulcer with wound vac 3. Metabolic enceph in a geriatric sec to above 4,. BEd bound/chronic contractures 5. Severe PCM 6. SNU resident 7. Severe sepsis with hypotension, infectious 8. HYpernatremia, severe, critical sec to POOr po 9. Hypercalcemia sec to dehydration 10. 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 Cont IVF for now till then] Wound vac - wound consult Vitals Vitals Vital Signs Date Time Temp Pulse Resp B/P (MAP) Pulse Ox O2 Delivery O2 Flow Rate FiO2 06/25/17 10:47 97.7 61 18 135/60 (85) 97 Room Air 97.7 Physical Exam General: Cooperative, No acute distress, Other (shakes, chronic contractures bilateral hands, no swelling legs, minimal subQ tissue) Heart: Regular rate, Normal S1 Lungs: Clear, Other Abdomen: Normal bowel sounds, Soft, No tenderness, No hepatosplenomegaly, No masses Extremities: No clubbing, Other (contractures uE, decub wound with wound vac) Skin: Other (large bed sore, wound vac) Labs LABS Laboratory Tests Test 06/24/17 13:50 06/24/17 13:55 06/25/17 04:53 06/25/17 04:55 Urine Color Yellow Urine Clarity Turbid Urine pH 6.5 Urine Specific [place] 1.020 Urine Protein 30 mg/dL (NEG-TRACE) Urine Glucose (UA) Negative mg/dL (NEG) Urine Ketones (Stick) Negative mg/dL (NEG) Urine Blood Large (NEG) Urine Nitrite Positive (NEG) Urine Bilirubin Negative (NEG) Urine Urobilinogen Dipstick 0.2 mg/dL (0.2 mg/dL) Urine Leukocyte Esterase Large (NEG) Urine RBC 3-5 /HPF (0-2) Urine WBC Tntc /HPF (0-4) Urine Squamous Epithelial Cells Occ /LPF Urine Bacteria Many /HPF (0-FEW) White Blood Count 11.1 x10^3/uL (4.0-11.0) 10.8 x10^3/uL (4.0-11.0) Red Blood Count 4.76 x10^6/uL (3.50-5.40) 4.27 x10^6/uL (3.50-5.40) Hemoglobin 14.1 g/dL (12.0-15.5) 12.7 g/dL (12.0-15.5) Hematocrit 44.1 % (36.0-47.0) 38.9 % (36.0-47.0) Mean Corpuscular Volume 93 fL (79-100) 91 fL (79-100) Mean Corpuscular Hemoglobin 30 pg (25-35) 30 pg (25-35) Mean Corpuscular Hemoglobin Concent 32 g/dL (31-37) 33 g/dL (31-37) Red Cell Distribution Width 14.4 % (11.5-14.5) 14.2 % (11.5-14.5) Platelet Count 224 x10^3/uL (140-400) 212 x10^3/uL (140-400) Neutrophils (%) (Auto) 81 % (31-73) 79 % (31-73) Lymphocytes (%) (Auto) 13 % (24-48) 14 % (24-48) Monocytes (%) (Auto) 6 % (0-9) 4 % (0-9) Eosinophils (%) (Auto) 0 % (0-3) 1 % (0-3) Basophils (%) (Auto) 0 % (0-3) 1 % (0-3) Neutrophils # (Auto) 9.0 x10^3uL (1.8-7.7) 8.6 x10^3uL (1.8-7.7) Lymphocytes # (Auto) 1.5 x10^3/uL (1.0-4.8) 1.5 x10^3/uL (1.0-4.8) Monocytes # (Auto) 0.6 x10^3/uL (0.0-1.1) 0.5 x10^3/uL (0.0-1.1) Eosinophils # (Auto) 0.0 x10^3/uL (0.0-0.7) 0.1 x10^3/uL (0.0-0.7) Basophils # (Auto) 0.0 x10^3/uL (0.0-0.2) 0.1 x10^3/uL (0.0-0.2) Erythrocyte Sedimentation Rate 39 (0-25) Sodium Level 153 mmol/L (136-145) 149 mmol/L (136-145) Potassium Level 3.6 mmol/L (3.5-5.1) 3.2 mmol/L (3.5-5.1) Chloride Level 115 mmol/L (98-107) 114 mmol/L (98-107) Carbon Dioxide Level 32 mmol/L (21-32) 28 mmol/L (21-32) Anion Gap 6 (6-14) 7 (6-14) Blood Urea Nitrogen 31 mg/dL (7-20) 23 mg/dL (7-20) Creatinine 0.9 mg/dL (0.6-1.0) 0.7 mg/dL (0.6-1.0) Estimated GFR (Cockcroft-Gault) 61.4 82.0 Glucose Level 137 mg/dL (70-99) 99 mg/dL (70-99) Lactic Acid Level 1.7 mmol/L (0.4-2.0) Calcium Level 10.6 mg/dL (8.5-10.1) 9.7 mg/dL (8.5-10.1) Phosphorus Level 3.1 mg/dL (2.6-4.7) Magnesium Level 2.5 mg/dL (1.8-2.4) Total Bilirubin 0.4 mg/dL (0.2-1.0) Direct Bilirubin 0.1 mg/dL (0.0-0.2) Aspartate Amino Transf (AST/SGOT) 16 U/L (15-37) Alanine Aminotransferase (ALT/SGPT) 11 U/L (14-59) Alkaline Phosphatase 62 U/L (46-116) Troponin I Quantitative < 0.017 ng/mL (0.000-0.055) Total Protein 6.9 g/dL (6.4-8.2) Albumin 3.1 g/dL (3.4-5.0) Lipase 479 U/L (73-393) Assessment and Plan Assessmemt and Plan Problems Medical Problems: (1) Dehydration Status: Acute (2) Elevated lipase Status: Acute (3) Fever Status: Acute (4) Hypernatremia Status: Acute (5) Leukocytosis Status: Acute (6) Urinary tract infection Status: Acute Problems: Comment Review of Relevant I have reviewed the following items clovis (where applicable) has been applied. Labs Laboratory Tests Test 06/24/17 13:50 06/24/17 13:55 06/25/17 04:53 06/25/17 04:55 Urine Color Yellow Urine Clarity Turbid Urine pH 6.5 Urine Specific [place] 1.020 Urine Protein 30 mg/dL (NEG-TRACE) Urine Glucose (UA) Negative mg/dL (NEG) Urine Ketones (Stick) Negative mg/dL (NEG) Urine Blood Large (NEG) Urine Nitrite Positive (NEG) Urine Bilirubin Negative (NEG) Urine Urobilinogen Dipstick 0.2 mg/dL (0.2 mg/dL) Urine Leukocyte Esterase Large (NEG) Urine RBC 3-5 /HPF (0-2) Urine WBC Tntc /HPF (0-4) Urine Squamous Epithelial Cells Occ /LPF Urine Bacteria Many /HPF (0-FEW) White Blood Count 11.1 x10^3/uL (4.0-11.0) 10.8 x10^3/uL (4.0-11.0) Red Blood Count 4.76 x10^6/uL (3.50-5.40) 4.27 x10^6/uL (3.50-5.40) Hemoglobin 14.1 g/dL (12.0-15.5) 12.7 g/dL (12.0-15.5) Hematocrit 44.1 % (36.0-47.0) 38.9 % (36.0-47.0) Mean Corpuscular Volume 93 fL (79-100) 91 fL (79-100) Mean Corpuscular Hemoglobin 30 pg (25-35) 30 pg (25-35) Mean Corpuscular Hemoglobin Concent 32 g/dL (31-37) 33 g/dL (31-37) Red Cell Distribution Width 14.4 % (11.5-14.5) 14.2 % (11.5-14.5) Platelet Count 224 x10^3/uL (140-400) 212 x10^3/uL (140-400) Neutrophils (%) (Auto) 81 % (31-73) 79 % (31-73) Lymphocytes (%) (Auto) 13 % (24-48) 14 % (24-48) Monocytes (%) (Auto) 6 % (0-9) 4 % (0-9) Eosinophils (%) (Auto) 0 % (0-3) 1 % (0-3) Basophils (%) (Auto) 0 % (0-3) 1 % (0-3) Neutrophils # (Auto) 9.0 x10^3uL (1.8-7.7) 8.6 x10^3uL (1.8-7.7) Lymphocytes # (Auto) 1.5 x10^3/uL (1.0-4.8) 1.5 x10^3/uL (1.0-4.8) Monocytes # (Auto) 0.6 x10^3/uL (0.0-1.1) 0.5 x10^3/uL (0.0-1.1) Eosinophils # (Auto) 0.0 x10^3/uL (0.0-0.7) 0.1 x10^3/uL (0.0-0.7) Basophils # (Auto) 0.0 x10^3/uL (0.0-0.2) 0.1 x10^3/uL (0.0-0.2) Erythrocyte Sedimentation Rate 39 (0-25) Sodium Level 153 mmol/L (136-145) 149 mmol/L (136-145) Potassium Level 3.6 mmol/L (3.5-5.1) 3.2 mmol/L (3.5-5.1) Chloride Level 115 mmol/L (98-107) 114 mmol/L (98-107) Carbon Dioxide Level 32 mmol/L (21-32) 28 mmol/L (21-32) Anion Gap 6 (6-14) 7 (6-14) Blood Urea Nitrogen 31 mg/dL (7-20) 23 mg/dL (7-20) Creatinine 0.9 mg/dL (0.6-1.0) 0.7 mg/dL (0.6-1.0) Estimated GFR (Cockcroft-Gault) 61.4 82.0 Glucose Level 137 mg/dL (70-99) 99 mg/dL (70-99) Lactic Acid Level 1.7 mmol/L (0.4-2.0) Calcium Level 10.6 mg/dL (8.5-10.1) 9.7 mg/dL (8.5-10.1) Phosphorus Level 3.1 mg/dL (2.6-4.7) Magnesium Level 2.5 mg/dL (1.8-2.4) Total Bilirubin 0.4 mg/dL (0.2-1.0) Direct Bilirubin 0.1 mg/dL (0.0-0.2) Aspartate Amino Transf (AST/SGOT) 16 U/L (15-37) Alanine Aminotransferase (ALT/SGPT) 11 U/L (14-59) Alkaline Phosphatase 62 U/L (46-116) Troponin I Quantitative < 0.017 ng/mL (0.000-0.055) Total Protein 6.9 g/dL (6.4-8.2) Albumin 3.1 g/dL (3.4-5.0) Lipase 479 U/L (73-393) Laboratory Tests Test 06/24/17 13:50 06/24/17 13:55 06/25/17 04:53 06/25/17 04:55 Urine Color Yellow Urine Clarity Turbid Urine pH 6.5 Urine Specific [place] 1.020 Urine Protein 30 mg/dL (NEG-TRACE) Urine Glucose (UA) Negative mg/dL (NEG) Urine Ketones (Stick) Negative mg/dL (NEG) Urine Blood Large (NEG) Urine Nitrite Positive (NEG) Urine Bilirubin Negative (NEG) Urine Urobilinogen Dipstick 0.2 mg/dL (0.2 mg/dL) Urine Leukocyte Esterase Large (NEG) Urine RBC 3-5 /HPF (0-2) Urine WBC Tntc /HPF (0-4) Urine Squamous Epithelial Cells Occ /LPF Urine Bacteria Many /HPF (0-FEW) White Blood Count 11.1 x10^3/uL (4.0-11.0) 10.8 x10^3/uL (4.0-11.0) Red Blood Count 4.76 x10^6/uL (3.50-5.40) 4.27 x10^6/uL (3.50-5.40) Hemoglobin 14.1 g/dL (12.0-15.5) 12.7 g/dL (12.0-15.5) Hematocrit 44.1 % (36.0-47.0) 38.9 % (36.0-47.0) Mean Corpuscular Volume 93 fL (79-100) 91 fL (79-100) Mean Corpuscular Hemoglobin 30 pg (25-35) 30 pg (25-35) Mean Corpuscular Hemoglobin Concent 32 g/dL (31-37) 33 g/dL (31-37) Red Cell Distribution Width 14.4 % (11.5-14.5) 14.2 % (11.5-14.5) Platelet Count 224 x10^3/uL (140-400) 212 x10^3/uL (140-400) Neutrophils (%) (Auto) 81 % (31-73) 79 % (31-73) Lymphocytes (%) (Auto) 13 % (24-48) 14 % (24-48) Monocytes (%) (Auto) 6 % (0-9) 4 % (0-9) Eosinophils (%) (Auto) 0 % (0-3) 1 % (0-3) Basophils (%) (Auto) 0 % (0-3) 1 % (0-3) Neutrophils # (Auto) 9.0 x10^3uL (1.8-7.7) 8.6 x10^3uL (1.8-7.7) Lymphocytes # (Auto) 1.5 x10^3/uL (1.0-4.8) 1.5 x10^3/uL (1.0-4.8) Monocytes # (Auto) 0.6 x10^3/uL (0.0-1.1) 0.5 x10^3/uL (0.0-1.1) Eosinophils # (Auto) 0.0 x10^3/uL (0.0-0.7) 0.1 x10^3/uL (0.0-0.7) Basophils # (Auto) 0.0 x10^3/uL (0.0-0.2) 0.1 x10^3/uL (0.0-0.2) Erythrocyte Sedimentation Rate 39 (0-25) Sodium Level 153 mmol/L (136-145) 149 mmol/L (136-145) Potassium Level 3.6 mmol/L (3.5-5.1) 3.2 mmol/L (3.5-5.1) Chloride Level 115 mmol/L (98-107) 114 mmol/L (98-107) Carbon Dioxide Level 32 mmol/L (21-32) 28 mmol/L (21-32) Anion Gap 6 (6-14) 7 (6-14) Blood Urea Nitrogen 31 mg/dL (7-20) 23 mg/dL (7-20) Creatinine 0.9 mg/dL (0.6-1.0) 0.7 mg/dL (0.6-1.0) Estimated GFR (Cockcroft-Gault) 61.4 82.0 Glucose Level 137 mg/dL (70-99) 99 mg/dL (70-99) Lactic Acid Level 1.7 mmol/L (0.4-2.0) Calcium Level 10.6 mg/dL (8.5-10.1) 9.7 mg/dL (8.5-10.1) Phosphorus Level 3.1 mg/dL (2.6-4.7) Magnesium Level 2.5 mg/dL (1.8-2.4) Total Bilirubin 0.4 mg/dL (0.2-1.0) Direct Bilirubin 0.1 mg/dL (0.0-0.2) Aspartate Amino Transf (AST/SGOT) 16 U/L (15-37) Alanine Aminotransferase (ALT/SGPT) 11 U/L (14-59) Alkaline Phosphatase 62 U/L (46-116) Troponin I Quantitative < 0.017 ng/mL (0.000-0.055) Total Protein 6.9 g/dL (6.4-8.2) Albumin 3.1 g/dL (3.4-5.0) Lipase 479 U/L (73-393) Medications Current Medications Vancomycin HCl (Vanco Per Pharmacy) 1 each PRN DAILY PRN MC SEE COMMENTS Last administered on 06/24/17 15:54; Start 06/24/17 at 14:15 Piperacillin Sod/ Tazobactam Sod (Zosyn Per Pharmacy) 1 each PRN DAILY PRN MC SEE COMMENTS; Start 06/24/17 at 14:15 Ringer's Solution 500 ml @ 500 mls/hr 1X ONCE IV Last administered on 14:15; Start 06/24/17 at 14:15; Stop 06/24/17 at 15:14; Status DC Vancomycin HCl 1 gm/Dextrose 250 ml @ 250 mls/hr 1X ONCE IV Last administered on 06/24/17 14:56; Start 06/24/17 at 14:30; Stop 06/24/17 at 15 :29; Status DC Piperacillin Sod/ Tazobactam Sod (Zosyn) 3.375 gm 1X ONCE IVP Last administered on 06/24/17 14:40; Start 06/24/17 at 14:30; Stop 06/24/17 at 14 :31; Status DC Hydromorphone HCl (Dilaudid) 0.5 mg PRN Q30MIN PRN IV SEVERE PAIN Last administered on 06/24/17 14:55; Start 06/24/17 at 14:45 Ondansetron HCl (Zofran) 4 mg PRN Q8HRS PRN IV NAUSEA/VOMITING; Start at 15:15; Stop 06/25/17 at 15:14 Morphine Sulfate 2 mg PRN Q2HR PRN IV PAIN; Start 06/24/17 at 15:15; Stop 07/01 at 15:14 Famotidine (Pepcid) 20 mg QHS IVP Last administered on 06/24/17 20:24; Start 06/24/17 at 21:00 Enoxaparin Sodium (Lovenox 30mg Syringe) 30 mg Q24H SQ Last administered on 09:17; Start 06/25/17 at 08:00 Acetaminophen (Tylenol) 325 mg PRN Q6HRS PRN SC MILD PAIN / TEMP; Start at 15:30 Sodium Chloride 1,000 ml @ 100 mls/hr Q10H IV Last administered on 06/25/17 02:45; Start 06/24/17 at 15:15 Carbidopa/Levodopa (Sinemet 25/100) 1 tab BID PO Last administered on 09:19; Start 06/24/17 at 21:00 Vitamin D (Vitamin D3) 1,000 unit DAILY PO Last administered on 06/25/17 09: 22; Start 06/25/17 at 09:00 Multivitamins (Thera M Plus) 1 tab DAILY PO Last administered on 06/25/17 09: 21; Start 06/25/17 at 09:00 Ascorbic Acid (Vitamin C) 500 mg DAILY PO Last administered on 06/25/17 09:22 ; Start 06/25/17 at 09:00 Piperacillin Sod/ Tazobactam Sod (Zosyn) 2.25 gm Q6HRS IVP Last administered on 06/25/17 05:58; Start 06/24/17 at 19:00 Vancomycin HCl 750 mg/Dextrose 250 ml @ 250 mls/hr Q24H IV ; Start 06/25/17 at 15:00 Vancomycin HCl 1 each 1X ONCE MC ; Start 06/26/17 at 14:30; Stop 06/26/17 at 14:31 Active Scripts Active Reported Olanzapine 5 Mg Tablet 5 Mg PO DAILY Potassium Chloride 10 Meq Capsule.er 10 Meq PO DAILY Percocet 5-325 Mg Tablet (Oxycodone/Acetaminophen) 1 Each Tablet 1 Tab PO QID Mirtazapine 15 Mg Tablet 0.5 Tab PO QHS Polyethylene Glycol 3350 255 Gm Powder 17 Gm PO DAILY Meclizine Hcl 12.5 Mg Tablet 1 Tab PO QID Colace (Docusate Sodium) 100 Mg Capsule 1 Cap PO BID Augmentin 500-125 Tablet (Amoxicillin/Potassium Clav) 1 Each Tablet 1 Tab PO BID Tylenol (Acetaminophen) 325 Mg Tablet 325 Mg PO QID Multi-Day Plus Iron Tablet (Multivitamin/Iron/Folic Acid) 1 Each Tablet 1 Each PO Carbidopa-Levodopa 25-100 Tab (Carbidopa/Levodopa) 1 Each Tablet 1 Each PO BID Vitamin D3 (Cholecalciferol (Vitamin D3)) 1,000 Unit Tablet 1,000 Unit PO DAILY Furosemide 20 Mg Tablet 20 Mg PO DAILY Olanzapine 5 Mg Tablet 5 Mg PO DAILY Vitals/I & O Vital Sign - Last 24 Hours 11/10/17 11/10/17 11/10/17 11/10/17 13:15 13:44 14:14 14:44 Temp 100.0 100.0 Pulse 108 92 90 106 Resp 20 22 18 20 B/P (MAP) 96/74 (81) 117/76 (90) 174/94 (120) 138/87 (104) Pulse Ox 95 97 98 96 O2 Delivery Room Air Room Air 06/24/17 06/24/17 06/24/17 06/24/17 14:55 15:25 16:00 19:00 Temp 97.9 97.7 97.9 97.7 Pulse 81 67 Resp 20 18 18 B/P (MAP) 149/80 (103) 153/76 (101) Pulse Ox 97 96 O2 Delivery Room Air Room Air Room Air Room Air 06/24/17 06/24/17 06/25/17 06/25/17 20:00 23:00 03:00 07:00 Temp 97.9 97.6 97.7 97.9 97.6 97.7 Pulse 68 75 59 Resp 16 16 18 B/P (MAP) 158/77 (104) 164/101 (122) 131/53 (79) Pulse Ox 97 96 97 O2 Delivery Room Air Room Air Room Air Room Air 06/25/17 10:47 Temp 97.7 97.7 Pulse 61 Resp 18 B/P (MAP) 135/60 (85) Pulse Ox 97 O2 Delivery Room Air FARZANEH SALES MD Jun 25, 2017 12:41
--- NOTE | 2017-06-25 14:41 | PDOC ---
Infectious Disease Note Subjective Subjective Referred by Dr. Tolliver on for UTI and decubitus ulcer Patient is known to our service. Refer to our consult from May 28 and last progress note Jun 01 for further details. Briefly, PMH Parkinson's, mostly chair/bed bound developed left buttocks decub ulcer s/p debridement May 27 with growth of alcaligenes spp and d/c on Augmentin till Jun 03. She also has a chronic Casas last changed Jun 07 per [place] record. She was sent to ER from [place] for evaluation of abnormal labs and fever. UA suggestive of infection. cultures pending Dose vanc and Zosyn in ER. ROS ROS GEN: Denies chills or body aches HEENT: Denies sore throat CV: Denies chest pain RESP: Denies shortness of air, cough GI: Difficulty swallowing at times. Denies n/v/d NEURO: little dizzy Vital Sign Vital Signs Vital Signs Date Time Temp Pulse Resp B/P (MAP) Pulse Ox O2 Delivery O2 Flow Rate FiO2 06/25/17 10:47 97.7 61 18 135/60 (85) 97 Room Air 97.7 Physical Exam PHYSICAL EXAM GENERAL: Alert, relaxed appearance HEENT: Matting left eye, normal conjunctivae. 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 left buttocks wound (pic) IV: ok Labs Lab Laboratory Tests Test 06/25/17 04:53 06/25/17 04:55 Sodium Level 149 mmol/L (136-145) Potassium Level 3.2 mmol/L (3.5-5.1) Chloride Level 114 mmol/L (98-107) Carbon Dioxide Level 28 mmol/L (21-32) Anion Gap 7 (6-14) Blood Urea Nitrogen 23 mg/dL (7-20) Creatinine 0.7 mg/dL (0.6-1.0) Estimated GFR (Cockcroft-Gault) 82.0 Glucose Level 99 mg/dL (70-99) Calcium Level 9.7 mg/dL (8.5-10.1) White Blood Count 10.8 x10^3/uL (4.0-11.0) Red Blood Count 4.27 x10^6/uL (3.50-5.40) Hemoglobin 12.7 g/dL (12.0-15.5) Hematocrit 38.9 % (36.0-47.0) Mean Corpuscular Volume 91 fL (79-100) Mean Corpuscular Hemoglobin 30 pg (25-35) Mean Corpuscular Hemoglobin Concent 33 g/dL (31-37) Red Cell Distribution Width 14.2 % (11.5-14.5) Platelet Count 212 x10^3/uL (140-400) Neutrophils (%) (Auto) 79 % (31-73) Lymphocytes (%) (Auto) 14 % (24-48) Monocytes (%) (Auto) 4 % (0-9) Eosinophils (%) (Auto) 1 % (0-3) Basophils (%) (Auto) 1 % (0-3) Neutrophils # (Auto) 8.6 x10^3uL (1.8-7.7) Lymphocytes # (Auto) 1.5 x10^3/uL (1.0-4.8) Monocytes # (Auto) 0.5 x10^3/uL (0.0-1.1) Eosinophils # (Auto) 0.1 x10^3/uL (0.0-0.7) Basophils # (Auto) 0.1 x10^3/uL (0.0-0.2) Micro URINE CULTURE RES 1 Preliminary Gram negative rods Greater than 100,000 colony forming units per mL URINE CULTURE RES 2 Preliminary Gram negative rods Greater than 100,000 colony forming units per Objective Assessment CAUTI. POA 06/24 GNR x 2 Leukocytosis Decubitus ulcer w/ necrotic tissue of left buttocks s/p debridement down to fascia, 05/27. h/o alcaligenes spp. ESR 39 Hypernatremia Elevated lipase Parkinson's w/ tardive dyskinesia, mostly chair bound ? hx C. diff 2015. Plan Plan of Care f/u cultures and am labs Monitor WBC, temp and renal function d/c vanc Continue Zosyn for now change Casas if not already done [place] medical records were reviewed, Augmentin listed on OCT as started 06/24, reason unclear. D/w brother Thank you Attending Co-Sign The patient was seen and interviewed as well as examined at the bedside. The chart was reviewed. The case was discussed. Agree with the plan of care. SULAIMAN COYLE APRN Jun 25, 2017 14:41 CHRISTIN LOJA MD Jun 25, 2017 16:22
[2017-06-25 15:00] VITALS: BP 134/68
[2017-06-25] MEDS ORDERED: VANCOMYCIN 750 MG in IV DEXTROSE 5% 250 ML IV SCH (15:00)
[2017-06-25 19:00] VITALS: BP 126/62
[2017-06-25] MEDS: LACTOBACILLUS RHAMNOSUS GG 1 CAPSULE. PO SCH (21:17)
[2017-06-25] MEDS: FAMOTIDINE 20 MG/2 ML VIAL IVP SCH (21:17)
[2017-06-25 23:00] VITALS: BP 139/69
[2017-06-26 03:02] VITALS: BP 150/60
--- NOTE | 2017-06-26 05:37 | EKG ---
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 Electronically Signed On 06-27-2017 10:06:13 BUSINESS LAW INSTRUCTOR by Israel Borrego MD
[2017-06-26] MEDS: PIPERACILLIN/TAZO IV Push 2.25 GM VIAL. IVP SCH ×5 (05:50→23:38)
[2017-06-26 05:52] LABS: BASO # 0.1 x10^3/uL (0.0-0.2); BASO % 1 % (0-3); EOS % 1 % (0-3); HEMATOCRIT 42.5 % (36.0-47.0); HEMOGLOBIN 13.5 g/dL (12.0-15.5); LYMPH # 1.9 x10^3/uL (1.0-4.8); LYMPH % 20 % (24-48); MEAN CORPUSCULAR HEMOGLOBIN 30 pg (25-35); MEAN CORPUSCULAR HGB CONC 32 g/dL (31-37); MEAN CORPUSCULAR VOLUME 93 fL (79-100); MONO % 5 % (0-9); NEUT % 73 % (31-73); PLATELET COUNT 231 x10^3/uL (140-400); RED BLOOD COUNT 4.58 x10^6/uL (3.50-5.40); RED CELL DISTRIBUTION WIDTH 14.5 % (11.5-14.5); WHITE BLOOD COUNT 9.5 x10^3/uL (4.0-11.0)
[2017-06-26 06:16] LABS: ALBUMIN 2.8 g/dL (3.4-5.0); CALCIUM 9.5 mg/dL (8.5-10.1); CREATININE 0.6 mg/dL (0.6-1.0); PHOSPHORUS 2.3 mg/dL (2.6-4.7); POTASSIUM 3.2 mmol/L (3.5-5.1)
[2017-06-26] MEDS: IV NORMAL SALINE 1000ML BAG 1,000 ML IV SCH (06:20)
[2017-06-26 07:00] VITALS: BP 174/61
[2017-06-26] MEDS ORDERED: hydrALAZINE 20 MG/ML VIAL. IVP PRN (08:45)
[2017-06-26] MEDS: DOCUSATE SODIUM 100 MG CAPSULE. PO SCH ×3 (09:00→21:00)
[2017-06-26] MEDS ORDERED: POTASSIUM CHLORIDE 20 MEQ TABLET.ER. PO ONE (09:15)
--- NOTE | 2017-06-26 10:19 | PDOC ---
PROGRESS NOTES Chief Complaint Chief Complaint 1. COmplicated, recurrent UTI 2. Pressure/decub ulcer with wound vac 3. Metabolic enceph in a geriatric sec to above 4,. BEd bound/chronic contractures 5. Severe PCM 6. SNU resident 7. Severe sepsis with hypotension, infectious 8. HYpernatremia, severe, critical sec to POOr po 9. Hypercalcemia sec to dehydration 10. FUll code 11. Tremors 12. Hypokalemia History of Present Illness History of Present Illness Wakes to me, knows she is in hospital PEr brother and DPOA Conrad, she can be very good in normal days BUt needs help to feed Still full code per Conrad - but he is reasonable (can revert code status when the "time comes") NEw Resident of [place] Tremors, EKG lots of artifact Denies CP \\ON sinemet and requip etc ON dysphagia 1 diet K low PLAN: COn empiric broad IV abx per ID Turn q2 DVT ppx Keep salas Consult neuro re worsening tremors - inc sinemet or other recs? HAs large decub which is unlikely to heal given immobility and severe PCM ALso has recurrent UTI bec of chronic retention\\ - keep salas [place], over all prog poor Cont Dysphagia [address] Kcl orally if able Wound vac - wound consult Dc NS - start procalamine Over all prg poor Full code Vitals Vitals Vital Signs Date Time Temp Pulse Resp B/P (MAP) Pulse Ox O2 Delivery O2 Flow Rate FiO2 06/26/17 07:00 96.6 45 16 174/61 (98) 100 Room Air 96.6 Physical Exam General: Cooperative, No acute distress, Other (shakes, chronic contractures bilateral hands, no swelling legs, minimal subQ tissue) Heart: Regular rate, Normal S1 Lungs: Clear, Other Abdomen: Normal bowel sounds, Soft, No tenderness, No hepatosplenomegaly, No masses Extremities: No clubbing, Other (contractures uE, decub wound with wound vac) Skin: Other (large bed sore, wound vac) Labs LABS Laboratory Tests Test 06/26/17 05:20 White Blood Count 9.5 x10^3/uL (4.0-11.0) Red Blood Count 4.58 x10^6/uL (3.50-5.40) Hemoglobin 13.5 g/dL (12.0-15.5) Hematocrit 42.5 % (36.0-47.0) Mean Corpuscular Volume 93 fL (79-100) Mean Corpuscular Hemoglobin 30 pg (25-35) Mean Corpuscular Hemoglobin Concent 32 g/dL (31-37) Red Cell Distribution Width 14.5 % (11.5-14.5) Platelet Count 231 x10^3/uL (140-400) Neutrophils (%) (Auto) 73 % (31-73) Lymphocytes (%) (Auto) 20 % (24-48) Monocytes (%) (Auto) 5 % (0-9) Eosinophils (%) (Auto) 1 % (0-3) Basophils (%) (Auto) 1 % (0-3) Neutrophils # (Auto) 6.9 x10^3uL (1.8-7.7) Lymphocytes # (Auto) 1.9 x10^3/uL (1.0-4.8) Monocytes # (Auto) 0.5 x10^3/uL (0.0-1.1) Eosinophils # (Auto) 0.1 x10^3/uL (0.0-0.7) Basophils # (Auto) 0.1 x10^3/uL (0.0-0.2) Sodium Level 147 mmol/L (136-145) Potassium Level 3.2 mmol/L (3.5-5.1) Chloride Level 113 mmol/L (98-107) Carbon Dioxide Level 26 mmol/L (21-32) Anion Gap 8 (6-14) Blood Urea Nitrogen 18 mg/dL (7-20) Creatinine 0.6 mg/dL (0.6-1.0) Estimated GFR (Cockcroft-Gault) 98.0 Glucose Level 98 mg/dL (70-99) Calcium Level 9.5 mg/dL (8.5-10.1) Phosphorus Level 2.3 mg/dL (2.6-4.7) Albumin 2.8 g/dL (3.4-5.0) Review of Systems Review of Systems minimally verbal Assessment and Plan Assessmemt and Plan Problems Medical Problems: (1) Dehydration Status: Acute (2) Elevated lipase Status: Acute (3) Fever Status: Acute (4) Hypernatremia Status: Acute (5) Leukocytosis Status: Acute (6) Urinary tract infection Status: Acute Problems: Comment Review of Relevant I have reviewed the following items clovis (where applicable) has been applied. Labs Laboratory Tests Test 06/24/17 13:50 06/24/17 13:55 06/25/17 04:53 06/25/17 04:55 Urine Color Yellow Urine Clarity Turbid Urine pH 6.5 Urine Specific [place] 1.020 Urine Protein 30 mg/dL (NEG-TRACE) Urine Glucose (UA) Negative mg/dL (NEG) Urine Ketones (Stick) Negative mg/dL (NEG) Urine Blood Large (NEG) Urine Nitrite Positive (NEG) Urine Bilirubin Negative (NEG) Urine Urobilinogen Dipstick 0.2 mg/dL (0.2 mg/dL) Urine Leukocyte Esterase Large (NEG) Urine RBC 3-5 /HPF (0-2) Urine WBC Tntc /HPF (0-4) Urine Squamous Epithelial Cells Occ /LPF Urine Bacteria Many /HPF (0-FEW) White Blood Count 11.1 x10^3/uL (4.0-11.0) 10.8 x10^3/uL (4.0-11.0) Red Blood Count 4.76 x10^6/uL (3.50-5.40) 4.27 x10^6/uL (3.50-5.40) Hemoglobin 14.1 g/dL (12.0-15.5) 12.7 g/dL (12.0-15.5) Hematocrit 44.1 % (36.0-47.0) 38.9 % (36.0-47.0) Mean Corpuscular Volume 93 fL (79-100) 91 fL (79-100) Mean Corpuscular Hemoglobin 30 pg (25-35) 30 pg (25-35) Mean Corpuscular Hemoglobin Concent 32 g/dL (31-37) 33 g/dL (31-37) Red Cell Distribution Width 14.4 % (11.5-14.5) 14.2 % (11.5-14.5) Platelet Count 224 x10^3/uL (140-400) 212 x10^3/uL (140-400) Neutrophils (%) (Auto) 81 % (31-73) 79 % (31-73) Lymphocytes (%) (Auto) 13 % (24-48) 14 % (24-48) Monocytes (%) (Auto) 6 % (0-9) 4 % (0-9) Eosinophils (%) (Auto) 0 % (0-3) 1 % (0-3) Basophils (%) (Auto) 0 % (0-3) 1 % (0-3) Neutrophils # (Auto) 9.0 x10^3uL (1.8-7.7) 8.6 x10^3uL (1.8-7.7) Lymphocytes # (Auto) 1.5 x10^3/uL (1.0-4.8) 1.5 x10^3/uL (1.0-4.8) Monocytes # (Auto) 0.6 x10^3/uL (0.0-1.1) 0.5 x10^3/uL (0.0-1.1) Eosinophils # (Auto) 0.0 x10^3/uL (0.0-0.7) 0.1 x10^3/uL (0.0-0.7) Basophils # (Auto) 0.0 x10^3/uL (0.0-0.2) 0.1 x10^3/uL (0.0-0.2) Erythrocyte Sedimentation Rate 39 (0-25) Sodium Level 153 mmol/L (136-145) 149 mmol/L (136-145) Potassium Level 3.6 mmol/L (3.5-5.1) 3.2 mmol/L (3.5-5.1) Chloride Level 115 mmol/L (98-107) 114 mmol/L (98-107) Carbon Dioxide Level 32 mmol/L (21-32) 28 mmol/L (21-32) Anion Gap 6 (6-14) 7 (6-14) Blood Urea Nitrogen 31 mg/dL (7-20) 23 mg/dL (7-20) Creatinine 0.9 mg/dL (0.6-1.0) 0.7 mg/dL (0.6-1.0) Estimated GFR (Cockcroft-Gault) 61.4 82.0 Glucose Level 137 mg/dL (70-99) 99 mg/dL (70-99) Lactic Acid Level 1.7 mmol/L (0.4-2.0) Calcium Level 10.6 mg/dL (8.5-10.1) 9.7 mg/dL (8.5-10.1) Phosphorus Level 3.1 mg/dL (2.6-4.7) Magnesium Level 2.5 mg/dL (1.8-2.4) Total Bilirubin 0.4 mg/dL (0.2-1.0) Direct Bilirubin 0.1 mg/dL (0.0-0.2) Aspartate Amino Transf (AST/SGOT) 16 U/L (15-37) Alanine Aminotransferase (ALT/SGPT) 11 U/L (14-59) Alkaline Phosphatase 62 U/L (46-116) Troponin I Quantitative < 0.017 ng/mL (0.000-0.055) Total Protein 6.9 g/dL (6.4-8.2) Albumin 3.1 g/dL (3.4-5.0) Lipase 479 U/L (73-393) Test 06/25/17 06:00 06/26/17 05:20 Nasal Screen MRSA (PCR) Negative (Negative) White Blood Count 9.5 x10^3/uL (4.0-11.0) Red Blood Count 4.58 x10^6/uL (3.50-5.40) Hemoglobin 13.5 g/dL (12.0-15.5) Hematocrit 42.5 % (36.0-47.0) Mean Corpuscular Volume 93 fL (79-100) Mean Corpuscular Hemoglobin 30 pg (25-35) Mean Corpuscular Hemoglobin Concent 32 g/dL (31-37) Red Cell Distribution Width 14.5 % (11.5-14.5) Platelet Count 231 x10^3/uL (140-400) Neutrophils (%) (Auto) 73 % (31-73) Lymphocytes (%) (Auto) 20 % (24-48) Monocytes (%) (Auto) 5 % (0-9) Eosinophils (%) (Auto) 1 % (0-3) Basophils (%) (Auto) 1 % (0-3) Neutrophils # (Auto) 6.9 x10^3uL (1.8-7.7) Lymphocytes # (Auto) 1.9 x10^3/uL (1.0-4.8) Monocytes # (Auto) 0.5 x10^3/uL (0.0-1.1) Eosinophils # (Auto) 0.1 x10^3/uL (0.0-0.7) Basophils # (Auto) 0.1 x10^3/uL (0.0-0.2) Sodium Level 147 mmol/L (136-145) Potassium Level 3.2 mmol/L (3.5-5.1) Chloride Level 113 mmol/L (98-107) Carbon Dioxide Level 26 mmol/L (21-32) Anion Gap 8 (6-14) Blood Urea Nitrogen 18 mg/dL (7-20) Creatinine 0.6 mg/dL (0.6-1.0) Estimated GFR (Cockcroft-Gault) 98.0 Glucose Level 98 mg/dL (70-99) Calcium Level 9.5 mg/dL (8.5-10.1) Phosphorus Level 2.3 mg/dL (2.6-4.7) Albumin 2.8 g/dL (3.4-5.0) Laboratory Tests Test 06/26/17 05:20 White Blood Count 9.5 x10^3/uL (4.0-11.0) Red Blood Count 4.58 x10^6/uL (3.50-5.40) Hemoglobin 13.5 g/dL (12.0-15.5) Hematocrit 42.5 % (36.0-47.0) Mean Corpuscular Volume 93 fL (79-100) Mean Corpuscular Hemoglobin 30 pg (25-35) Mean Corpuscular Hemoglobin Concent 32 g/dL (31-37) Red Cell Distribution Width 14.5 % (11.5-14.5) Platelet Count 231 x10^3/uL (140-400) Neutrophils (%) (Auto) 73 % (31-73) Lymphocytes (%) (Auto) 20 % (24-48) Monocytes (%) (Auto) 5 % (0-9) Eosinophils (%) (Auto) 1 % (0-3) Basophils (%) (Auto) 1 % (0-3) Neutrophils # (Auto) 6.9 x10^3uL (1.8-7.7) Lymphocytes # (Auto) 1.9 x10^3/uL (1.0-4.8) Monocytes # (Auto) 0.5 x10^3/uL (0.0-1.1) Eosinophils # (Auto) 0.1 x10^3/uL (0.0-0.7) Basophils # (Auto) 0.1 x10^3/uL (0.0-0.2) Sodium Level 147 mmol/L (136-145) Potassium Level 3.2 mmol/L (3.5-5.1) Chloride Level 113 mmol/L (98-107) Carbon Dioxide Level 26 mmol/L (21-32) Anion Gap 8 (6-14) Blood Urea Nitrogen 18 mg/dL (7-20) Creatinine 0.6 mg/dL (0.6-1.0) Estimated GFR (Cockcroft-Gault) 98.0 Glucose Level 98 mg/dL (70-99) Calcium Level 9.5 mg/dL (8.5-10.1) Phosphorus Level 2.3 mg/dL (2.6-4.7) Albumin 2.8 g/dL (3.4-5.0) Microbiology 06/24/17 Blood Culture - Preliminary, Resulted NO GROWTH AFTER 1 DAY 06/24/17 Urine Culture - Preliminary, Resulted 06/24/17 Urine Culture Result 1 (CAT) - Preliminary, Resulted 06/24/17 Urine Culture Result 2 (CAT) - Preliminary, Resulted Medications Current Medications Vancomycin HCl (Vanco Per Pharmacy) 1 each PRN DAILY PRN MC SEE COMMENTS Last administered on 06/24/17 15:54; Start 06/24/17 at 14:15; Stop 06/25/17 at 14 :41; Status DC Piperacillin Sod/ Tazobactam Sod (Zosyn Per Pharmacy) 1 each PRN DAILY PRN MC SEE COMMENTS; Start 06/24/17 at 14:15 Ringer's Solution 500 ml @ 500 mls/hr 1X ONCE IV Last administered on 14:15; Start 06/24/17 at 14:15; Stop 06/24/17 at 15:14; Status DC Vancomycin HCl 1 gm/Dextrose 250 ml @ 250 mls/hr 1X ONCE IV Last administered on 06/24/17 14:56; Start 06/24/17 at 14:30; Stop 06/24/17 at 15 :29; Status DC Piperacillin Sod/ Tazobactam Sod (Zosyn) 3.375 gm 1X ONCE IVP Last administered on 06/24/17 14:40; Start 06/24/17 at 14:30; Stop 06/24/17 at 14 :31; Status DC Hydromorphone HCl (Dilaudid) 0.5 mg PRN Q30MIN PRN IV SEVERE PAIN Last administered on 06/24/17 14:55; Start 06/24/17 at 14:45 Ondansetron HCl (Zofran) 4 mg PRN Q8HRS PRN IV NAUSEA/VOMITING; Start at 15:15; Stop 06/25/17 at 15:14; Status DC Morphine Sulfate 2 mg PRN Q2HR PRN IV PAIN; Start 06/24/17 at 15:15; Stop 07/01 at 15:14; Status DC Famotidine (Pepcid) 20 mg QHS IVP Last administered on 06/25/17 21:17; Start 06/24/17 at 21:00; Stop 06/26/17 at 08:45; Status DC Enoxaparin Sodium (Lovenox 30mg Syringe) 30 mg Q24H SQ Last administered on 09:17; Start 06/25/17 at 08:00 Acetaminophen (Tylenol) 325 mg PRN Q6HRS PRN WI MILD PAIN / TEMP; Start at 15:30 Sodium Chloride 1,000 ml @ 100 mls/hr Q10H IV Last administered on 06/26/17 06:20; Start 06/24/17 at 15:15; Stop 06/26/17 at 08:45; Status DC Carbidopa/Levodopa (Sinemet 25/100) 1 tab BID PO Last administered on 21:17; Start 06/24/17 at 21:00 Vitamin D (Vitamin D3) 1,000 unit DAILY PO Last administered on 06/25/17 09: 22; Start 06/25/17 at 09:00 Multivitamins (Thera M Plus) 1 tab DAILY PO Last administered on 06/25/17 09: 21; Start 06/25/17 at 09:00 Ascorbic Acid (Vitamin C) 500 mg DAILY PO Last administered on 06/25/17 09:22 ; Start 06/25/17 at 09:00 Piperacillin Sod/ Tazobactam Sod (Zosyn) 2.25 gm Q6HRS IVP Last administered on 06/26/17t 05:50; Start 06/24/17 at 19:00 Vancomycin HCl 750 mg/Dextrose 250 ml @ 250 mls/hr Q24H IV ; Start 06/25/17 at 15:00; Stop 06/25/17 at 15:00; Status DC Vancomycin HCl 1 each 1X ONCE MC ; Start 06/26/17 at 14:30; Stop 06/26/17 at 14:31; Status Cancel Lactobacillus Rhamnosus (Culturelle) 1 cap BID PO Last administered on t 21:17; Start 06/25/17 at 21:00 Hydralazine HCl (Apresoline Inj) 10 mg PRN Q4HRS PRN IVP ELEVATED BP, SEE COMMENTS; Start 06/26/17 at 08:45 Hydralazine HCl (Apresoline) 25 mg BID PO ; Start 06/26/17 at 09:00 Acetaminophen (Tylenol) 325 mg QID PO ; Start 06/26/17 at 09:00 Docusate Sodium (Colace) 100 mg BID PO ; Start 06/26/17 at 09:00 Furosemide (Lasix) 20 mg DAILY PO ; Start 06/26/17 at 09:00 Meclizine HCl (Antivert) 12.5 mg QID PO ; Start 06/26/17 at 09:00 Mirtazapine (Remeron) 7.5 mg QHS PO ; Start 06/26/17 at 21:00 Olanzapine (ZyPREXA) 5 mg DAILY PO ; Start 06/26/17 at 09:00 Oxycodone/ Acetaminophen (Percocet 5/325) 1 tab QID PO ; Start 06/26/17 at 09: 00 Polyethylene Glycol (miraLAX PACKET) 17 gm DAILY PO ; Start 06/26/17 at 09:00 Amino Acids/ Glycerin/ Electrolytes 1,000 ml @ 80 mls/hr [id number] IV ; Start at 10:00 Potassium Chloride (Klor-Con) 40 meq 1X ONCE PO ; Start 06/26/17 at 09:15; Stop 06/26/17 at 09:16; Status DC Active Scripts Active Reported Olanzapine 5 Mg Tablet 5 Mg PO DAILY Potassium Chloride 10 Meq Capsule.er 10 Meq PO DAILY Percocet 5-325 Mg Tablet (Oxycodone/Acetaminophen) 1 Each Tablet 1 Tab PO QID Mirtazapine 15 Mg Tablet 0.5 Tab PO QHS Polyethylene Glycol 3350 255 Gm Powder 17 Gm PO DAILY Meclizine Hcl 12.5 Mg Tablet 1 Tab PO QID Colace (Docusate Sodium) 100 Mg Capsule 1 Cap PO BID Augmentin 500-125 Tablet (Amoxicillin/Potassium Clav) 1 Each Tablet 1 Tab PO BID Tylenol (Acetaminophen) 325 Mg Tablet 325 Mg PO QID Multi-Day Plus Iron Tablet (Multivitamin/Iron/Folic Acid) 1 Each Tablet 1 Each PO Carbidopa-Levodopa 25-100 Tab (Carbidopa/Levodopa) 1 Each Tablet 1 Each PO BID Vitamin D3 (Cholecalciferol (Vitamin D3)) 1,000 Unit Tablet 1,000 Unit PO DAILY Furosemide 20 Mg Tablet 20 Mg PO DAILY Olanzapine 5 Mg Tablet 5 Mg PO DAILY Vitals/I & O Vital Sign - Last 24 Hours 06/25/17 06/25/17 06/25/17 06/25/17 10:47 15:00 19:00 21:00 Temp 97.7 97.5 98.5 97.7 97.5 98.5 Pulse 61 69 57 Resp 18 18 16 B/P (MAP) 135/60 (85) 134/68 (90) 126/62 (83) Pulse Ox 97 97 96 O2 Delivery Room Air Room Air Room Air Room Air 06/25/17 06/26/17 06/26/17 23:00 03:02 07:00 Temp 96.8 96.6 96.6 96.8 96.6 96.6 Pulse 62 51 45 Resp 20 18 16 B/P (MAP) 139/69 (92) 150/60 (90) 174/61 (98) Pulse Ox 97 97 100 O2 Delivery Room Air Room Air Room Air Intake and Output 06/26/17 06/26/17 06/27/17 15:00 23:00 07:00 Intake Total 400 ml Balance 400 ml FARZANEH SALES MD Jun 26, 2017 10:19
[2017-06-26] MEDS: ENOXAPARIN 30 MG/0.3 ML SYRINGE. SQ SCH (10:44)
[2017-06-26] MEDS: MECLIZINE HCL 12.5 MG TABLET. PO SCH ×4 (10:45→21:00)
[2017-06-26] MEDS: hydrALAZINE 25 MG TABLET PO SCH ×2 (10:46→21:00)
[2017-06-26] MEDS: FUROSEMIDE 20 MG TABLET PO SCH (10:47)
[2017-06-26] MEDS: LACTOBACILLUS RHAMNOSUS GG 1 CAPSULE. PO SCH ×2 (10:47→21:00)
[2017-06-26] MEDS: POLYETHYLENE GLYCOL 3350 17 GM PACKET. PO SCH (10:48)
[2017-06-26] MEDS: oxyCODONE/APAP 5/325 1 TAB TABLET PO SCH ×4 (10:48→20:59)
[2017-06-26] MEDS: CARBIDOPA/LEVODOPA 25/100MG TABLET PO SCH ×2 (10:48→21:01)
[2017-06-26] MEDS: ASCORBIC ACID 500 MG TABLET PO SCH (10:49)
[2017-06-26] MEDS: ACETAMINOPHEN 325 MG TABLET. PO SCH ×4 (10:49→21:00)
[2017-06-26] MEDS: MULTIVITAMIN with MINERAL TABLET. PO SCH (10:49)
[2017-06-26] MEDS: CHOLECALCIFEROL (VITAMIN D3) 1,000 UNIT TABLET PO SCH (10:50)
[2017-06-26] MEDS: OLANZapine 5 MG TABLET PO SCH (10:50)
[2017-06-26] MEDS: AMINO AC 3%/ELECTROLYTE/GLYCER 1,000 ML IV SCH ×2 (10:51→21:03)
[2017-06-26 11:00] VITALS: BP 171/83
--- NOTE | 2017-06-26 11:42 | PDOC ---
Infectious Disease Note Subjective Subjective Feeling alright, wanting to get up to the chair Yessenia changed yesterday ROS ROS GEN: Denies fevers, chills, sweats CV: Denies chest pain RESP: Denies shortness of air, cough GI: Denies n/v/d Vital Sign Vital Signs Vital Signs Date Time Temp Pulse Resp B/P (MAP) Pulse Ox O2 Delivery O2 Flow Rate FiO2 06/26/17 10:48 20 100 Room Air 06/26/17 10:46 45 174/61 06/26/17 07:00 96.6 96.6 Physical Exam PHYSICAL EXAM GENERAL: Alert, relaxed appearance HEENT: Oral cavity dry LUNGS: Clear HEART: S1 and S2 ABD: Soft, NT, BS active : Casas (chg 06/25) EXT: No edema, no cyanosis [employer] POW[employer] WORKER: Alert, 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 left buttocks wound (pic) IV: ok Labs Lab Laboratory Tests Test 06/26/17 05:20 White Blood Count 9.5 x10^3/uL (4.0-11.0) Red Blood Count 4.58 x10^6/uL (3.50-5.40) Hemoglobin 13.5 g/dL (12.0-15.5) Hematocrit 42.5 % (36.0-47.0) Mean Corpuscular Volume 93 fL (79-100) Mean Corpuscular Hemoglobin 30 pg (25-35) Mean Corpuscular Hemoglobin Concent 32 g/dL (31-37) Red Cell Distribution Width 14.5 % (11.5-14.5) Platelet Count 231 x10^3/uL (140-400) Neutrophils (%) (Auto) 73 % (31-73) Lymphocytes (%) (Auto) 20 % (24-48) Monocytes (%) (Auto) 5 % (0-9) Eosinophils (%) (Auto) 1 % (0-3) Basophils (%) (Auto) 1 % (0-3) Neutrophils # (Auto) 6.9 x10^3uL (1.8-7.7) Lymphocytes # (Auto) 1.9 x10^3/uL (1.0-4.8) Monocytes # (Auto) 0.5 x10^3/uL (0.0-1.1) Eosinophils # (Auto) 0.1 x10^3/uL (0.0-0.7) Basophils # (Auto) 0.1 x10^3/uL (0.0-0.2) Sodium Level 147 mmol/L (136-145) Potassium Level 3.2 mmol/L (3.5-5.1) Chloride Level 113 mmol/L (98-107) Carbon Dioxide Level 26 mmol/L (21-32) Anion Gap 8 (6-14) Blood Urea Nitrogen 18 mg/dL (7-20) Creatinine 0.6 mg/dL (0.6-1.0) Estimated GFR (Cockcroft-Gault) 98.0 Glucose Level 98 mg/dL (70-99) Calcium Level 9.5 mg/dL (8.5-10.1) Phosphorus Level 2.3 mg/dL (2.6-4.7) Albumin 2.8 g/dL (3.4-5.0) Micro URINE CULTURE RES 1 Preliminary Gram negative rods Greater than 100,000 colony forming units per mL URINE CULTURE RES 2 Preliminary Gram negative rods Greater than 100,000 colony forming units per BLOOD CULTURE Preliminary NO GROWTH AFTER 1 DAY Objective Assessment CAUTI. POA 06/24 GNR x 2 Leukocytosis Decubitus ulcer w/ necrotic tissue of left buttocks s/p debridement down to fascia, 05/27. h/o alcaligenes spp. ESR 39 Hypernatremia Elevated lipase Parkinson's w/ tardive dyskinesia, mostly chair bound ? hx C. diff 2015. Plan Plan of Care Await GNR ID/sensitivities Monitor WBC, temp and renal function Continue Zosyn for now PT/OT Attending Co-Sign The patient was seen and interviewed as well as examined at the bedside. The chart was reviewed. The case was discussed. Agree with the plan of care. SULAIMAN COYLE APRN Jun 26, 2017 11:42 CHRISTIN LOJA MD Jun 26, 2017 15:07
[2017-06-26 15:11] VITALS: BP 154/76
[2017-06-26 19:00] VITALS: BP 125/62
--- NOTE | 2017-06-26 20:44 | PDOC2 ---
NEUROLOGY CONSULT Date of Admission Date of Admission Full Report Dictated DATE: 06/26/17 TIME: 20:41 Current Medications Current Medications Current Medications Vancomycin HCl (Vanco Per Pharmacy) 1 each PRN DAILY PRN MC SEE COMMENTS Last administered on 06/24/17 15:54; Start 06/24/17 at 14:15; Stop 06/25/17 at 14 :41; Status DC Piperacillin Sod/ Tazobactam Sod (Zosyn Per Pharmacy) 1 each PRN DAILY PRN MC SEE COMMENTS; Start 06/24/17 at 14:15 Ringer's Solution 500 ml @ 500 mls/hr 1X ONCE IV Last administered on 14:15; Start 06/24/17 at 14:15; Stop 06/24/17 at 15:14; Status DC Vancomycin HCl 1 gm/Dextrose 250 ml @ 250 mls/hr 1X ONCE IV Last administered on 06/24/17 14:56; Start 06/24/17 at 14:30; Stop 06/24/17 at 15 :29; Status DC Piperacillin Sod/ Tazobactam Sod (Zosyn) 3.375 gm 1X ONCE IVP Last administered on 06/24/17 14:40; Start 06/24/17 at 14:30; Stop 06/24/17 at 14 :31; Status DC Hydromorphone HCl (Dilaudid) 0.5 mg PRN Q30MIN PRN IV SEVERE PAIN Last administered on 06/24/17 14:55; Start 06/24/17 at 14:45 Ondansetron HCl (Zofran) 4 mg PRN Q8HRS PRN IV NAUSEA/VOMITING; Start at 15:15; Stop 06/25/17 at 15:14; Status DC Morphine Sulfate 2 mg PRN Q2HR PRN IV PAIN; Start 06/24/17 at 15:15; Stop 07/01 at 15:14; Status DC Famotidine (Pepcid) 20 mg QHS IVP Last administered on 06/25/17 21:17; Start 06/24/17 at 21:00; Stop 06/26/17 at 08:45; Status DC Enoxaparin Sodium (Lovenox 30mg Syringe) 30 mg Q24H SQ Last administered on 10:44; Start 06/25/17 at 08:00 Acetaminophen (Tylenol) 325 mg PRN Q6HRS PRN ME MILD PAIN / TEMP; Start at 15:30 Sodium Chloride 1,000 ml @ 100 mls/hr Q10H IV Last administered on 06/26/17 06:20; Start 06/24/17 at 15:15; Stop 06/26/17 at 08:45; Status DC Carbidopa/Levodopa (Sinemet 25/100) 1 tab BID PO Last administered on 10:48; Start 06/24/17 at 21:00; Stop 06/26/17 at 20:40; Status DC Vitamin D (Vitamin D3) 1,000 unit DAILY PO Last administered on 06/26/17 10: 50; Start 06/25/17 at 09:00 Multivitamins (Thera M Plus) 1 tab DAILY PO Last administered on 06/26/17 10: 49; Start 06/25/17 at 09:00 Ascorbic Acid (Vitamin C) 500 mg DAILY PO Last administered on 06/26/17 10:49 ; Start 06/25/17 at 09:00 Piperacillin Sod/ Tazobactam Sod (Zosyn) 2.25 gm Q6HRS IVP Last administered on 06/26/17 18:39; Start 06/24/17 at 19:00 Vancomycin HCl 750 mg/Dextrose 250 ml @ 250 mls/hr Q24H IV ; Start 06/25/17 at 15:00; Stop 06/25/17 at 15:00; Status DC Vancomycin HCl 1 each 1X ONCE MC ; Start 06/26/17 at 14:30; Stop 06/26/17 at 14:31; Status Cancel Lactobacillus Rhamnosus (Culturelle) 1 cap BID PO Last administered on 10:47; Start 06/25/17 at 21:00 Hydralazine HCl (Apresoline Inj) 10 mg PRN Q4HRS PRN IVP ELEVATED BP, SEE COMMENTS; Start 06/26/17 at 08:45 Hydralazine HCl (Apresoline) 25 mg BID PO Last administered on 06/26/17 10:46 ; Start 06/26/17 at 09:00 Acetaminophen (Tylenol) 325 mg QID PO Last administered on 06/26/17 17:12; Start 06/26/17 at 09:00 Docusate Sodium (Colace) 100 mg BID PO ; Start 06/26/17 at 09:00 Furosemide (Lasix) 20 mg DAILY PO Last administered on 06/26/17 10:47; Start 06/26/17 at 09:00 Meclizine HCl (Antivert) 12.5 mg QID PO Last administered on 06/26/17 17:12; Start 06/26/17 at 09:00 Mirtazapine (Remeron) 7.5 mg QHS PO ; Start 06/26/17 at 21:00 Olanzapine (ZyPREXA) 5 mg DAILY PO Last administered on 06/26/17 10:50; Start 06/26/17 at 09:00 Oxycodone/ Acetaminophen (Percocet 5/325) 1 tab QID PO Last administered on 17:12; Start 06/26/17 at 09:00 Polyethylene Glycol (miraLAX PACKET) 17 gm DAILY PO Last administered on 10:48; Start 06/26/17 at 09:00 Amino Acids/ Glycerin/ Electrolytes 1,000 ml @ 80 mls/hr [id number] IV Last administered on 06/26/17 10:51; Start 06/26/17 at 10:00 Potassium Chloride (Klor-Con) 40 meq 1X ONCE PO Last administered on 10:50; Start 06/26/17 at 09:15; Stop 06/26/17 at 09:16; Status DC Carbidopa/Levodopa (Sinemet 25/100) 1 tab QID PO ; Start 06/26/17 at 21:00; Status UNV Active Scripts Active Reported Olanzapine 5 Mg Tablet 5 Mg PO DAILY Potassium Chloride 10 Meq Capsule.er 10 Meq PO DAILY Percocet 5-325 Mg Tablet (Oxycodone/Acetaminophen) 1 Each Tablet 1 Tab PO QID Mirtazapine 15 Mg Tablet 0.5 Tab PO QHS Polyethylene Glycol 3350 255 Gm Powder 17 Gm PO DAILY Meclizine Hcl 12.5 Mg Tablet 1 Tab PO QID Colace (Docusate Sodium) 100 Mg Capsule 1 Cap PO BID Augmentin 500-125 Tablet (Amoxicillin/Potassium Clav) 1 Each Tablet 1 Tab PO BID Tylenol (Acetaminophen) 325 Mg Tablet 325 Mg PO QID Multi-Day Plus Iron Tablet (Multivitamin/Iron/Folic Acid) 1 Each Tablet 1 Each PO Carbidopa-Levodopa 25-100 Tab (Carbidopa/Levodopa) 1 Each Tablet 1 Each PO BID Vitamin D3 (Cholecalciferol (Vitamin D3)) 1,000 Unit Tablet 1,000 Unit PO DAILY Furosemide 20 Mg Tablet 20 Mg PO DAILY Olanzapine 5 Mg Tablet 5 Mg PO DAILY Allergies Allergies: Coded Allergies: No Known Drug Allergies (Unverified , 11/19/16) Vitals VITALS Vital Signs Date Time Temp Pulse Resp B/P (MAP) Pulse Ox O2 Delivery O2 Flow Rate FiO2 06/26/17 19:00 97.5 64 18 125/62 (83) 96 Room Air 97.5 Labs Labs Laboratory Tests Test 06/25/17 04:53 06/25/17 04:55 06/25/17 06:00 06/26/17 05:20 Sodium Level 149 mmol/L (136-145) 147 mmol/L (136-145) Potassium Level 3.2 mmol/L (3.5-5.1) 3.2 mmol/L (3.5-5.1) Chloride Level 114 mmol/L (98-107) 113 mmol/L (98-107) Carbon Dioxide Level 28 mmol/L (21-32) 26 mmol/L (21-32) Anion Gap 7 (6-14) 8 (6-14) Blood Urea Nitrogen 23 mg/dL (7-20) 18 mg/dL (7-20) Creatinine 0.7 mg/dL (0.6-1.0) 0.6 mg/dL (0.6-1.0) Estimated GFR (Cockcroft-Gault) 82.0 98.0 Glucose Level 99 mg/dL (70-99) 98 mg/dL (70-99) Calcium Level 9.7 mg/dL (8.5-10.1) 9.5 mg/dL (8.5-10.1) White Blood Count 10.8 x10^3/uL (4.0-11.0) 9.5 x10^3/uL (4.0-11.0) Red Blood Count 4.27 x10^6/uL (3.50-5.40) 4.58 x10^6/uL (3.50-5.40) Hemoglobin 12.7 g/dL (12.0-15.5) 13.5 g/dL (12.0-15.5) Hematocrit 38.9 % (36.0-47.0) 42.5 % (36.0-47.0) Mean Corpuscular Volume 91 fL (79-100) 93 fL (79-100) Mean Corpuscular Hemoglobin 30 pg (25-35) 30 pg (25-35) Mean Corpuscular Hemoglobin Concent 33 g/dL (31-37) 32 g/dL (31-37) Red Cell Distribution Width 14.2 % (11.5-14.5) 14.5 % (11.5-14.5) Platelet Count 212 x10^3/uL (140-400) 231 x10^3/uL (140-400) Neutrophils (%) (Auto) 79 % (31-73) 73 % (31-73) Lymphocytes (%) (Auto) 14 % (24-48) 20 % (24-48) Monocytes (%) (Auto) 4 % (0-9) 5 % (0-9) Eosinophils (%) (Auto) 1 % (0-3) 1 % (0-3) Basophils (%) (Auto) 1 % (0-3) 1 % (0-3) Neutrophils # (Auto) 8.6 x10^3uL (1.8-7.7) 6.9 x10^3uL (1.8-7.7) Lymphocytes # (Auto) 1.5 x10^3/uL (1.0-4.8) 1.9 x10^3/uL (1.0-4.8) Monocytes # (Auto) 0.5 x10^3/uL (0.0-1.1) 0.5 x10^3/uL (0.0-1.1) Eosinophils # (Auto) 0.1 x10^3/uL (0.0-0.7) 0.1 x10^3/uL (0.0-0.7) Basophils # (Auto) 0.1 x10^3/uL (0.0-0.2) 0.1 x10^3/uL (0.0-0.2) Nasal Screen MRSA (PCR) Negative (Negative) Phosphorus Level 2.3 mg/dL (2.6-4.7) Albumin 2.8 g/dL (3.4-5.0) Laboratory Tests Test 06/26/17 05:20 White Blood Count 9.5 x10^3/uL (4.0-11.0) Red Blood Count 4.58 x10^6/uL (3.50-5.40) Hemoglobin 13.5 g/dL (12.0-15.5) Hematocrit 42.5 % (36.0-47.0) Mean Corpuscular Volume 93 fL (79-100) Mean Corpuscular Hemoglobin 30 pg (25-35) Mean Corpuscular Hemoglobin Concent 32 g/dL (31-37) Red Cell Distribution Width 14.5 % (11.5-14.5) Platelet Count 231 x10^3/uL (140-400) Neutrophils (%) (Auto) 73 % (31-73) Lymphocytes (%) (Auto) 20 % (24-48) Monocytes (%) (Auto) 5 % (0-9) Eosinophils (%) (Auto) 1 % (0-3) Basophils (%) (Auto) 1 % (0-3) Neutrophils # (Auto) 6.9 x10^3uL (1.8-7.7) Lymphocytes # (Auto) 1.9 x10^3/uL (1.0-4.8) Monocytes # (Auto) 0.5 x10^3/uL (0.0-1.1) Eosinophils # (Auto) 0.1 x10^3/uL (0.0-0.7) Basophils # (Auto) 0.1 x10^3/uL (0.0-0.2) Sodium Level 147 mmol/L (136-145) Potassium Level 3.2 mmol/L (3.5-5.1) Chloride Level 113 mmol/L (98-107) Carbon Dioxide Level 26 mmol/L (21-32) Anion Gap 8 (6-14) Blood Urea Nitrogen 18 mg/dL (7-20) Creatinine 0.6 mg/dL (0.6-1.0) Estimated GFR (Cockcroft-Gault) 98.0 Glucose Level 98 mg/dL (70-99) Calcium Level 9.5 mg/dL (8.5-10.1) Phosphorus Level 2.3 mg/dL (2.6-4.7) Albumin 2.8 g/dL (3.4-5.0) Assessment/Plan Assessment/Plan Patient is a 71-year-old woman with long-standing Parkinson's disease and debility. She resides in a nursing facility primarily at bed rest. He is on low- dose Sinemet 25/100 twice per day. Nurses reported worsening tremor yesterday. She has severe rigidity and bradykinesia. She did not have tremor at the time of my evaluation. I would like to increase Sinemet to 4 times per day. Depending on response this could potentially be increased. The goal would be to improve fluidity of movements. Need to watch for worsening of hallucinations or confusion. REVA MAS MD Jun 26, 2017 20:44
[2017-06-26] MEDS: MIRTAZAPINE 7.5 MG TABLET. PO SCH (20:59)
[2017-06-26 23:00] VITALS: BP 145/89
[2017-06-27 03:02] VITALS: BP 141/60
[2017-06-27] MEDS: PIPERACILLIN/TAZO IV Push 2.25 GM VIAL. IVP SCH (05:58)
--- NOTE | 2017-06-27 06:09 | CONS ---
DATE OF CONSULTATION: 06/26/2017 REFERRING PHYSICIAN: Alka Tolliver MD REASON FOR CONSULTATION: Worsening tremor with Parkinson disease. HISTORY OF PRESENT ILLNESS: The patient is a 71-year-old woman with Parkinson disease. She was recently admitted on 05/26/2017 with decubitus wound status post debridement and hypotensive shock needing pressors. She has had Parkinson disease for a number of years. Family members were not present at bedside, so history was obtained from the patient as well as records. She reports that she has had Parkinson disease for 5 years, but I am not certain she is a reliable historian. Nurse does note that last night around 3:00 a.m., she developed much worsening tremor. It is much better today and normally does fluctuate. For the Parkinson's, she is on very low-dose Sinemet 1 tablet twice per day. She reports that she has not worked with a neurologist for quite some time. She does not believe she has been on more medication for the Parkinson disease. She believes she lives at home with her 2 brothers, although she lives in a nursing facility. PAST MEDICAL HISTORY: 1. Parkinson disease. 2. Anxiety. 3. Depression. 4. Hypertension. 5. Schizophrenia. 6. Status post PEG tube placement and removal. 7. History of hypokalemia. 8. Encephalopathy. 9. History of sepsis. 10. Dementia. ALLERGIES: No known allergies to drugs. MEDICATIONS PRIOR TO ADMISSION: Tylenol as needed, Augmentin twice per day, Sinemet 25/100 twice per day, vitamin D3 1000 units, Colace 100 mg twice per day, furosemide 20 mg, meclizine 12.5 mg 4 times per day, mirtazapine 7.5 mg at night, multivitamin with minerals, olanzapine 5 mg daily, oxycodone/acetaminophen 5/325 four times per day, polyethylene glycol 17 grams, potassium chloride extended release 10 mEq. FAMILY HISTORY: Noncontributory. SOCIAL HISTORY: She does not smoke tobacco, drink alcohol or use recreational drugs. She resides in a nursing facility. REVIEW OF SYSTEMS: She denies any headache. There has been no change of vision or hearing. She has been able to swallow modified diet. She does not complain of shortness of breath, chest or abdominal pain. She does not complain of bone or joint pain. She has not had fever or rash. Does not have any gastrointestinal or genitourinary complaints. She does have a tremor and slowness to movement. She has been in bed a long time. She does not have excessive bleeding or bruising. She does not have swelling. She does have contractures of hands and legs. PHYSICAL EXAMINATION: VITAL SIGNS: The blood pressure was 125/62, pulse 64, respirations 18, temperature 97.5 degrees Fahrenheit. Oximetry was 96% on room air. NEUROLOGIC: She appeared well groomed and reasonably well nourished. She was oriented to that she was in the hospital, but could not recall the name. She knew the year and the month. She could not spell the word world backwards. Examination of the cranial nerves revealed visual andino appeared full. Extraocular movements were intact. The eyes were conjugate. Pupils were 3 mm. She could not keep her eyes open at all for funduscopic exam. Facial sensation was intact. The muscles of mastication and facial expression were symmetric, although diminished. She had a masked face. Hearing was intact to finger rub. The palate arches symmetrically and the tongue was midline with motion. Tongue movements as well as all movements were slow. Muscle bulk was diminished throughout. Tone was rigid in all extremities. At the present time, there was no tremor. She had difficulty initiating movement, but she could raise both arms off the bed and she could partially start to raise her legs off the bed, but was very minimal. Movements were symmetric. She was generally weak. Reflexes were diminished throughout, trace in the arms, absent in knees and ankles. Toes are not upgoing. Coordination testing was attempted with [id number], but she moved extremely slowly and could not get her finger all the way to her nose. Sensory exam was intact to pain, light touch, graphesthesia, cold thermal and vibration. There was no extinction to double simultaneous stimulation. Gait was not testable. CARDIOVASCULAR: Auscultation of the carotid arteries did not reveal a bruit. Heart rhythm was regular without a murmur. Peripheral pulses were symmetric in the hands, diminished in the feet. There was no edema or cyanosis. There was very limited range of motion with the fingers being contracted in flexion and very little movement, but some movement of the ankles and toes, but minimal. REVIEW OF LABORATORY DATA: The CBC revealed a normal white blood cell count, hemoglobin, hematocrit and platelet count. Sedimentation rate was 39. Sodium was elevated at 147 and potassium low at 3.2, chloride elevated at 113. Phosphorus was low at 2.3 and albumin low at 2.8. Troponin was not elevated. Magnesium was 2.5 on 06/24. Urinalysis revealed 30 mg/dL protein, large amount of blood, positive nitrite, large amount of leukocyte esterase, 3-5 red blood cells and too numerous to count white blood cells, occasional squamous epithelial cells and many bacteria. Nasal screen MRSA by PCR was negative. Urine culture grew Klebsiella pneumoniae and E. coli. Chest x-ray revealed no confluent infiltrates. IMPRESSION: The patient is a 71-year-old woman with a history of Parkinson disease, which she states has been 5 years, but I am not certain this was reliable. She looks quite advanced. She is on a very low-dose Sinemet and has a great deal of rigidity in fact has contractures and has been in bed rest for what sounds like a long period of time. I am not certain any medicine is going to make difference at this point. Although she has dementia, she still knows she is in the hospital, knows the month and the year. She was able to answer questions and follow commands. RECOMMENDATIONS: I would like to try increasing Sinemet to 25/100 four times per day instead of twice per day to see if we can gain some efficacy. If this medication dosage has never been adjusted, then to increase it even to further depending on her response would be appropriate. The goal would be to try to improve the fluidity of the movement so she is able to eat and swallow more easily. It is possible she has been on medications before and this is at the end of her disease and simply cannot tolerate anything higher. If she begins to hallucinate and have confusions and delusions, then will need to back off to the current dosage. REVA MAS MD DR: MARCUS/leigha JOB#: [id number] / [id number] DONALD Coleman MD, FERILYN MD TERMULO, CHERRIE MD
[2017-06-27 07:00] VITALS: BP 154/87
[2017-06-27] MEDS: ENOXAPARIN 30 MG/0.3 ML SYRINGE. SQ SCH (08:00)
[2017-06-27] MEDS: ACETAMINOPHEN 325 MG TABLET. PO SCH ×4 (09:00→22:04)
[2017-06-27] MEDS: DOCUSATE SODIUM 100 MG CAPSULE. PO SCH ×2 (09:34→21:46)
[2017-06-27] MEDS: OLANZapine 5 MG TABLET PO SCH (09:34)
[2017-06-27] MEDS: CARBIDOPA/LEVODOPA 25/100MG TABLET PO SCH ×4 (09:34→21:45)
[2017-06-27] MEDS: ASCORBIC ACID 500 MG TABLET PO SCH (09:34)
[2017-06-27] MEDS: LACTOBACILLUS RHAMNOSUS GG 1 CAPSULE. PO SCH ×2 (09:34→21:45)
[2017-06-27] MEDS: MULTIVITAMIN with MINERAL TABLET. PO SCH (09:34)
[2017-06-27] MEDS: CHOLECALCIFEROL (VITAMIN D3) 1,000 UNIT TABLET PO SCH (09:34)
[2017-06-27] MEDS: MECLIZINE HCL 12.5 MG TABLET. PO SCH ×4 (09:34→21:46)
[2017-06-27] MEDS: oxyCODONE/APAP 5/325 1 TAB TABLET PO SCH ×4 (09:34→21:46)
[2017-06-27] MEDS: FUROSEMIDE 20 MG TABLET PO SCH (09:35)
[2017-06-27] MEDS: hydrALAZINE 25 MG TABLET PO SCH ×2 (09:35→21:45)
[2017-06-27] MEDS: POLYETHYLENE GLYCOL 3350 17 GM PACKET. PO SCH (09:35)
[2017-06-27] MEDS ORDERED: ERTAPENEM 1GM IVPB FOR OMNI 50 ML IV SCH (10:00)
--- NOTE | 2017-06-27 10:08 | PDOC ---
PROGRESS NOTES Chief Complaint Chief Complaint Fever Hypernatremia ASSESSMENT AND PLAN: 1. UTI: recurrent, complicated with chronic Casas for retention. cult with pansensitive E.coli and almost panresistent Klebsiella. switch empiric Abx to ertapenem 2. Sepsis: severe hypotension POA, now resolved, as are fevers, tachycardia 3. Hypernatremia: improving. 2/2 dehydration. cont IVF 4. Hypokalemia: persistent. replete 5. Pressure/decub ulcer: chronic, with wound vac in place. 6. Bed bound with chronic contractures; NH resident. needs help with feeding 7. Dysphagia: DP diet 1, ProcalAmine 8. Hypoalbuminemia: moderated PCM, exacerbated by acute inflammation 9. Tremors: ? parkinson's, on sinemet. Neuro consult 10. Prophylaxis Full Code DPOA: brother Pavan Prognosis: poor History of Present Illness History of Present Illness responds appropriately in full sentences. denies pain. no current complaints Vitals Vitals Vital Signs Date Time Temp Pulse Resp B/P (MAP) Pulse Ox O2 Delivery O2 Flow Rate FiO2 06/27/17 09:35 67 154/87 06/27/17 09:34 20 98 Room Air 06/27/17 07:00 97.7 97.7 Physical Exam General: Alert, Cooperative, No acute distress Heart: Regular rate Lungs: Clear, Other Abdomen: Normal bowel sounds, Soft, No tenderness Extremities: No clubbing, Other (contractures UE, LE) Skin: Other (large bed sore, wound vac) MADELEINE BOND MD Jun 27, 2017 10:08
[2017-06-27 11:00] VITALS: BP 156/78
--- NOTE | 2017-06-27 11:35 | PDOC ---
Infectious Disease Note Subjective Subjective Feeling alright, wanting to get up to the chair ROS ROS GEN: Denies fevers, chills, sweats HEENT: Denies blurred vision, sore throat CV: Denies chest pain RESP: Denies shortness of air, cough GI: Denies n/v/d NEURO: Denies confusion, dizziness MSK: Denies weakness, joint pain/swelling Vital Sign Vital Signs Vital Signs Date Time Temp Pulse Resp B/P (MAP) Pulse Ox O2 Delivery O2 Flow Rate FiO2 06/27/17 11:00 96.6 71 18 156/78 (104) 93 Room Air 96.6 Physical Exam PHYSICAL EXAM GENERAL: Alert, relaxed appearance HEENT: Oral cavity dry LUNGS: Clear HEART: S1 and S2 ABD: Soft, NT, BS active : Casas ([facility] 06/25) EXT: No edema, no cyanosis HOSPICE CARE CONSULTANT: Alert, 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 left buttocks wound (pic) IV: ok Labs Micro Klebsiella pneumoniae Greater than 100,000 colony forming units per mL URINE CULTURE RES 2 Final Escherichia coli Greater than 100,000 colony forming units per mL Cefazolin <=4 ug/mL Cefazolin with an CAT <=16 predicts susceptibility to the oral agents cefaclor, cefdinir, cefpodoxime, cefprozil, cefuroxime, cephalexin, and loracarbef when used for therapy of uncomplicated urinary tract infections due to E. coli, Klebsiella pneumoniae, and Proteus mirabilis. ANTIMICROBIAL SUSCEPTIBILITY Final Comment S = Susceptible; I = Intermediate; R = Resistant P = Positive; N = Negative MICS are expressed in micrograms per mL Antibiotic RSLT#1 RSLT#2 RSLT#3 RSLT#4 Amoxicillin/Clavulanic Acid I S Ampicillin R S Cefazolin R Cefepime R S Ceftriaxone R S Cefuroxime R S Cephalothin R S Ciprofloxacin R S Ertapenem S S Gentamicin R S Imipenem S S Levofloxacin R S Nitrofurantoin I S CONTINUED ON NEXT PAGE RUN DATE: 06/26/17 PAGE 2 RUN TIME: 1515 [facility] [address] [place] [address] Ruddy Rosales M.D., Application Integrator SPEC: [id number] PATIENT: LAURA ARROYO [id number] ( Continued) Procedure Result ANTIMICROBIAL SUSCEPTIBILITY Final (continued) Piperacillin R S Tetracycline S S Tobramycin R S Trimethoprim/Sulfa R S Objective Assessment CAUTI. POA 06/24 MDR Klebsiella/Ecoli Leukocytosis -better Decubitus ulcer w/ necrotic tissue of left buttocks s/p debridement down to fascia, 05/27. h/o alcaligenes spp. ESR 39 Hypernatremia Elevated lipase Parkinson's w/ tardive dyskinesia, mostly chair bound ? hx C. diff 2016. Plan Plan of Care Meropenem started today Could change to Fosfomycin at discharge OKSANA GORE MD Jun 27, 2017 11:35
[2017-06-27] MEDS: MEROPENEM 1 GM in IV NORMAL SALINE 100ML 100 ML IV SCH ×2 (11:39→21:44)
[2017-06-27] MEDS: AMINO AC 3%/ELECTROLYTE/GLYCER 1,000 ML IV SCH (11:39)
--- NOTE | 2017-06-27 14:48 | PDOC ---
G I PROGRESS NOTE Subjective Non-verbal to me. Objective Others' notes reviewed. Physical Exam Abdomen benign with old g-tube scar. Review of Relevant I have reviewed the following items clovis (where applicable) has been applied. Labs Laboratory Tests Test 06/26/17 05:20 White Blood Count 9.5 x10^3/uL (4.0-11.0) Red Blood Count 4.58 x10^6/uL (3.50-5.40) Hemoglobin 13.5 g/dL (12.0-15.5) Hematocrit 42.5 % (36.0-47.0) Mean Corpuscular Volume 93 fL (79-100) Mean Corpuscular Hemoglobin 30 pg (25-35) Mean Corpuscular Hemoglobin Concent 32 g/dL (31-37) Red Cell Distribution Width 14.5 % (11.5-14.5) Platelet Count 231 x10^3/uL (140-400) Neutrophils (%) (Auto) 73 % (31-73) Lymphocytes (%) (Auto) 20 % (24-48) Monocytes (%) (Auto) 5 % (0-9) Eosinophils (%) (Auto) 1 % (0-3) Basophils (%) (Auto) 1 % (0-3) Neutrophils # (Auto) 6.9 x10^3uL (1.8-7.7) Lymphocytes # (Auto) 1.9 x10^3/uL (1.0-4.8) Monocytes # (Auto) 0.5 x10^3/uL (0.0-1.1) Eosinophils # (Auto) 0.1 x10^3/uL (0.0-0.7) Basophils # (Auto) 0.1 x10^3/uL (0.0-0.2) Sodium Level 147 mmol/L (136-145) Potassium Level 3.2 mmol/L (3.5-5.1) Chloride Level 113 mmol/L (98-107) Carbon Dioxide Level 26 mmol/L (21-32) Anion Gap 8 (6-14) Blood Urea Nitrogen 18 mg/dL (7-20) Creatinine 0.6 mg/dL (0.6-1.0) Estimated GFR (Cockcroft-Gault) 98.0 Glucose Level 98 mg/dL (70-99) Calcium Level 9.5 mg/dL (8.5-10.1) Phosphorus Level 2.3 mg/dL (2.6-4.7) Albumin 2.8 g/dL (3.4-5.0) Microbiology 06/24/17 Blood Culture - Preliminary, Resulted NO GROWTH AFTER 2 DAYS 06/24/17 Urine Culture - Final, Complete 06/24/17 Urine Culture Result 1 (CAT) - Final, Complete 06/24/17 Urine Culture Result 2 (CAT) - Final, Complete 06/24/17 Antimicrobic Susceptibility - Final, Complete Medications Current Medications Vancomycin HCl (Vanco Per Pharmacy) 1 each PRN DAILY PRN MC SEE COMMENTS Last administered on 06/24/17 15:54; Start 06/24/17 at 14:15; Stop 06/25/17 at 14 :41; Status DC Piperacillin Sod/ Tazobactam Sod (Zosyn Per Pharmacy) 1 each PRN DAILY PRN MC SEE COMMENTS; Start 06/24/17 at 14:15; Stop 06/27/17 at 09:53; Status DC Ringer's Solution 500 ml @ 500 mls/hr 1X ONCE IV Last administered on 14:15; Start 06/24/17 at 14:15; Stop 06/24/17 at 15:14; Status DC Vancomycin HCl 1 gm/Dextrose 250 ml @ 250 mls/hr 1X ONCE IV Last administered on 06/24/17 14:56; Start 06/24/17 at 14:30; Stop 06/24/17 at 15 :29; Status DC Piperacillin Sod/ Tazobactam Sod (Zosyn) 3.375 gm 1X ONCE IVP Last administered on 06/24/17 14:40; Start 06/24/17 at 14:30; Stop 06/24/17 at 14 :31; Status DC Hydromorphone HCl (Dilaudid) 0.5 mg PRN Q30MIN PRN IV SEVERE PAIN Last administered on 06/24/17 14:55; Start 06/24/17 at 14:45 Ondansetron HCl (Zofran) 4 mg PRN Q8HRS PRN IV NAUSEA/VOMITING; Start at 15:15; Stop 06/25/17 at 15:14; Status DC Morphine Sulfate 2 mg PRN Q2HR PRN IV PAIN; Start 06/24/17 at 15:15; Stop 07/01 at 15:14; Status DC Famotidine (Pepcid) 20 mg QHS IVP Last administered on 06/25/17 21:17; Start 06/24/17 at 21:00; Stop 06/26/17 at 08:45; Status DC Enoxaparin Sodium (Lovenox 30mg Syringe) 30 mg Q24H SQ Last administered on 10:44; Start 06/25/17 at 08:00 Acetaminophen (Tylenol) 325 mg PRN Q6HRS PRN WI MILD PAIN / TEMP; Start at 15:30 Sodium Chloride 1,000 ml @ 100 mls/hr Q10H IV Last administered on 06/26/17 06:20; Start 06/24/17 at 15:15; Stop 06/26/17 at 08:45; Status DC Carbidopa/Levodopa (Sinemet 25/100) 1 tab BID PO Last administered on 10:48; Start 06/24/17 at 21:00; Stop 06/26/17 at 20:40; Status DC Vitamin D (Vitamin D3) 1,000 unit DAILY PO Last administered on 06/27/17 09: 34; Start 06/25/17 at 09:00 Multivitamins (Thera M Plus) 1 tab DAILY PO Last administered on 06/27/17 09: 34; Start 06/25/17 at 09:00 Ascorbic Acid (Vitamin C) 500 mg DAILY PO Last administered on 06/27/17 09:34 ; Start 06/25/17 at 09:00 Piperacillin Sod/ Tazobactam Sod (Zosyn) 2.25 gm Q6HRS IVP Last administered on 06/27/17 05:58; Start 06/24/17 at 19:00; Stop 06/27/17 at 09:53; Status DC Vancomycin HCl 750 mg/Dextrose 250 ml @ 250 mls/hr Q24H IV ; Start 06/25/17 at 15:00; Stop 06/25/17 at 15:00; Status DC Vancomycin HCl 1 each 1X ONCE MC ; Start 06/26/17 at 14:30; Stop 06/26/17 at 14:31; Status Cancel Lactobacillus Rhamnosus (Culturelle) 1 cap BID PO Last administered on 09:34; Start 06/25/17 at 21:00 Hydralazine HCl (Apresoline Inj) 10 mg PRN Q4HRS PRN IVP ELEVATED BP, SEE COMMENTS; Start 06/26/17 at 08:45 Hydralazine HCl (Apresoline) 25 mg BID PO Last administered on 06/27/17 09:35 ; Start 06/26/17 at 09:00 Acetaminophen (Tylenol) 325 mg QID PO Last administered on 06/27/17 14:29; Start 06/26/17 at 09:00 Docusate Sodium (Colace) 100 mg BID PO Last administered on 06/27/17 09:34; Start 06/26/17 at 09:00 Furosemide (Lasix) 20 mg DAILY PO Last administered on 06/27/17 09:35; Start 06/26/17 at 09:00 Meclizine HCl (Antivert) 12.5 mg QID PO Last administered on 06/27/17 14:29; Start 06/26/17 at 09:00 Mirtazapine (Remeron) 7.5 mg QHS PO Last administered on 06/26/17 20:59; Start 06/26/17 at 21:00 Olanzapine (ZyPREXA) 5 mg DAILY PO Last administered on 06/27/17 09:34; Start 06/26/17 at 09:00 Oxycodone/ Acetaminophen (Percocet 5/325) 1 tab QID PO Last administered on 14:29; Start 06/26/17 at 09:00 Polyethylene Glycol (miraLAX PACKET) 17 gm DAILY PO Last administered on 09:35; Start 06/26/17 at 09:00 Amino Acids/ Glycerin/ Electrolytes 1,000 ml @ 80 mls/hr [id number] IV Last administered on 06/27/17 11:39; Start 06/26/17 at 10:00 Potassium Chloride (Klor-Con) 40 meq 1X ONCE PO Last administered on 10:50; Start 06/26/17 at 09:15; Stop 06/26/17 at 09:16; Status DC Carbidopa/Levodopa (Sinemet 25/100) 1 tab QID PO Last administered on 14:29; Start 06/26/17 at 21:00 Ertapenem 50 ml @ 100 mls/hr DAILY IV ; Start 06/27/17 at 10:00; Status UNV Meropenem 1 gm/ Sodium Chloride 100 ml @ 200 mls/hr Q12HR IV Last administered on 06/27/17t 11:39; Start 06/27/17 at 10:30 Active Scripts Active Reported Olanzapine 5 Mg Tablet 5 Mg PO DAILY Potassium Chloride 10 Meq Capsule.er 10 Meq PO DAILY Percocet 5-325 Mg Tablet (Oxycodone/Acetaminophen) 1 Each Tablet 1 Tab PO QID Mirtazapine 15 Mg Tablet 0.5 Tab PO QHS Polyethylene Glycol 3350 255 Gm Powder 17 Gm PO DAILY Meclizine Hcl 12.5 Mg Tablet 1 Tab PO QID Colace (Docusate Sodium) 100 Mg Capsule 1 Cap PO BID Augmentin 500-125 Tablet (Amoxicillin/Potassium Clav) 1 Each Tablet 1 Tab PO BID Tylenol (Acetaminophen) 325 Mg Tablet 325 Mg PO QID Multi-Day Plus Iron Tablet (Multivitamin/Iron/Folic Acid) 1 Each Tablet 1 Each PO Carbidopa-Levodopa 25-100 Tab (Carbidopa/Levodopa) 1 Each Tablet 1 Each PO BID Vitamin D3 (Cholecalciferol (Vitamin D3)) 1,000 Unit Tablet 1,000 Unit PO DAILY Furosemide 20 Mg Tablet 20 Mg PO DAILY Olanzapine 5 Mg Tablet 5 Mg PO DAILY Vitals/I & O Vital Sign - Last 24 Hours 06/26/17 06/26/17 06/26/17 06/26/17 15:11 17:12 19:00 20:00 Temp 97.5 97.5 97.5 97.5 Pulse 60 64 Resp 18 20 18 B/P (MAP) 154/76 (102) 125/62 (83) Pulse Ox 96 96 96 O2 Delivery Room Air Room Air Room Air Room Air 06/26/17 06/26/17 06/26/17 06/27/17 20:59 21:00 23:00 03:02 Temp 98.1 98.5 98.1 98.5 Pulse 64 75 53 Resp 20 20 B/P (MAP) 125/62 145/89 (107) 141/60 (87) Pulse Ox 96 100 98 O2 Delivery Room Air Room Air Room Air 06/27/17 06/27/17 06/27/17 06/27/17 07:00 08:00 09:34 09:35 Temp 97.7 97.7 Pulse 67 67 Resp 18 20 B/P (MAP) 154/87 (109) 154/87 Pulse Ox 98 98 O2 Delivery Room Air Room Air 06/27/17 06/27/17 06/27/17 10:34 11:00 14:29 Temp 96.6 96.6 Pulse 71 Resp 18 18 18 B/P (MAP) 156/78 (104) Pulse Ox 98 93 93 O2 Delivery Room Air Room Air Room Air O2 Flow Rate Intake and Output 06/26/17 06/26/17 06/27/17 15:00 23:00 07:00 Intake Total 400 ml 1900 ml Output Total 351 ml 240 ml Balance 400 ml 1549 ml -240 ml Problem List Problems Medical Problems: (1) Dehydration Status: Acute (2) Elevated lipase Status: Acute (3) Fever Status: Acute (4) Hypernatremia Status: Acute (5) Leukocytosis Status: Acute (6) Urinary tract infection Status: Acute Assessment Infected decub UTI Neurologically impaired deglutition. Plan of Care: Continue current Tx, Mgmt Plan of Care Note Standing by. ALISTAIR BURTON MD Jun 27, 2017 14:48
[2017-06-27 15:30] VITALS: BP 156/78
--- NOTE | 2017-06-27 16:55 | PDOC ---
PROGRESS NOTES Assessment Assessment IMPRESSION: PD Dementia. HTN CHF Rigidity. RECOMMENDATIONS/PLAN: Continue Sinemet 25/100 mg qid. Treat medical diseases. OT/PT. Past Medical History Cardiovascular: CHF, HTN Pulmonary: No pertinent hx CENTRAL NERVOUS SYSTEM: Other Hepatobiliary: No pertinent hx Psych: Anxiety, Addictions, Schizophrenia Musculoskeletal: low back pain Renal/: Other Past Surgical History Hysterectomy, Other (wound vac decub ) Family History No Significant Social History Smoke: No ALCOHOL: none Drugs: None ALLERGY: Reviewed. MEDICATIONS: Refer to MAR REVIEW OF SYSTEMS: Constitutional: Dementia features. Head: No traumatic brain or head injury. Skin: No edema, or rash. Ear: No infection. Eyes: No vision loss, or diplopia. Nose: No bleeding or purulent discharges. Hearing: Hearing loss. Neck: No injury. Breast: No history of cancer, masses, or discharges. Cardiac: HTN Pulmonary: No COPD. GI: No GI Ulcer, GI bleeding. Urinary/genital: UTI. Endocrine: No cousin face, craniofacial dysmorphism, polydactyly. Skeletomuscular: Generalized weakness. Neurological: see HP. Psychiatric: Denies drug use/abuse. Otherwise, not [id number] review of systems. PHYSICAL EXAMINATION: General appearance in subacute distress. HEENT: Normocephalic and nontraumatic. Eyes, nose, ears, and throat are unremarkable. Hearing decrease. Neck is supple. No lymphadenopathy. No Crepitus. Cardiovascular: S1, S2, regular rate and rhythm. Pulmonary: Clear to auscultation bilaterally. Abdomen: Bowel sounds are positive. Abdomen is soft, nontender, and nondistended. Extremities: No rash, lesions, or edema. No restriction of range of motion NEUROLOGICAL EXAMINATION: Awake. Not fully oriented to time, place and person. PERRL. EOMI. CN: no focal findings. Muscle tone: within normal. Muscle strength: 4 DTR: 2- Plantar reflex: Neutral response bilaterally Gait: not examined in bed. Sensory exam: no abnormal findings. No acute cerebellar signs elicited. F-T-N test fine. Objective Objective Vital Signs Date Time Temp Pulse Resp B/P (MAP) Pulse Ox O2 Delivery O2 Flow Rate FiO2 06/27/17 16:46 18 93 Room Air 06/27/17 15:30 96.6 71 156/78 (104) 96.6 06/27/17 11:00 Intake and Output 11/13/17 07:00 Intake Total 2300 ml Output Total 591 ml Balance 1709 ml Intake Oral 1300 ml IV Total 1000 ml Output Urine Total 590 ml Stool Total 1 ml # Voids 1 Vitals Signs Vitals VS - Last 72 Hours, by Label Date Time Temp Pulse Resp B/P (MAP) Pulse Ox O2 Delivery O2 Flow Rate FiO2 06/27/17 16:46 18 93 Room Air 06/27/17 15:30 96.6 71 18 156/78 (104) 93 Room Air 96.6 06/27/17 15:29 18 93 Room Air 06/27/17 14:29 18 93 Room Air 06/27/17 11:00 96.6 71 18 156/78 (104) 93 Room Air 96.6 06/27/17 09:35 67 154/87 06/27/17 09:34 20 98 Room Air 06/27/17 08:00 Room Air 06/27/17 07:00 97.7 67 18 154/87 (109) 98 97.7 06/27/17 03:02 98.5 53 20 141/60 (87) 98 Room Air 98.5 06/26/17 23:00 98.1 75 20 145/89 (107) 100 Room Air 98.1 06/26/17 21:00 64 125/62 06/26/17 20:59 96 Room Air 06/26/17 20:00 Room Air 06/26/17 19:00 97.5 64 18 125/62 (83) 96 Room Air 97.5 06/26/17 17:12 20 96 Room Air 06/26/17 15:11 97.5 60 18 154/76 (102) 96 Room Air 97.5 06/26/17 11:00 96.6 59 16 171/83 (112) 97 Room Air 96.6 06/26/17 10:48 20 100 Room Air 06/26/17 10:46 45 174/61 06/26/17 08:00 Room Air 06/26/17 07:00 96.6 45 16 174/61 (98) 100 Room Air 96.6 Laboratory Laboratory Microbiology 06/24/17 Blood Culture - Preliminary, Resulted NO GROWTH AFTER 3 DAYS 06/24/17 Urine Culture - Final, Complete 06/24/17 Urine Culture Result 1 (CAT) - Final, Complete 06/24/17 Urine Culture Result 2 (CAT) - Final, Complete 06/24/17 Antimicrobic Susceptibility - Final, Complete Medication Medications Current Medications Carbidopa/Levodopa (Sinemet 25/100) 1 tab QID PO Last administered on 16:46; Start 06/26/17 at 21:00 Ertapenem 50 ml @ 100 mls/hr DAILY IV ; Start 06/27/17 at 10:00; Status UNV Meropenem 1 gm/ Sodium Chloride 100 ml @ 200 mls/hr Q12HR IV Last administered on 06/27/17 11:39; Start 06/27/17 at 10:30 Mirtazapine (Remeron) 7.5 mg QHS PO Last administered on 06/26/17 20:59; Start 06/26/17 at 21:00 Comment Review of Relevant I have reviewed the following items clovis (where applicable) has been applied. ESTELITA VO MD Jun 27, 2017 16:55
[2017-06-27 19:00] VITALS: BP 130/67
[2017-06-27] MEDS: MIRTAZAPINE 7.5 MG TABLET. PO SCH (21:44)
[2017-06-27 23:00] VITALS: BP 145/74
[2017-06-28] MEDS: AMINO AC 3%/ELECTROLYTE/GLYCER 1,000 ML IV SCH ×2 (02:28→14:50)
[2017-06-28 03:00] VITALS: BP 147/79
[2017-06-28 05:21] LABS: BASO # 0.1 x10^3/uL (0.0-0.2); BASO % 1 % (0-3); EOS % 2 % (0-3); HEMATOCRIT 36.2 % (36.0-47.0); HEMOGLOBIN 12.1 g/dL (12.0-15.5); LYMPH # 1.7 x10^3/uL (1.0-4.8); LYMPH % 25 % (24-48); MEAN CORPUSCULAR HEMOGLOBIN 30 pg (25-35); MEAN CORPUSCULAR HGB CONC 34 g/dL (31-37); MEAN CORPUSCULAR VOLUME 89 fL (79-100); MONO % 6 % (0-9); NEUT % 66 % (31-73); PLATELET COUNT 215 x10^3/uL (140-400); RED BLOOD COUNT 4.07 x10^6/uL (3.50-5.40); RED CELL DISTRIBUTION WIDTH 14.1 % (11.5-14.5); WHITE BLOOD COUNT 6.9 x10^3/uL (4.0-11.0)
[2017-06-28 05:47] LABS: CREATININE 0.5 mg/dL (0.6-1.0); GFR 120.9; POTASSIUM 3.8 mmol/L (3.5-5.1)
[2017-06-28 07:45] VITALS: BP 154/68
--- NOTE | 2017-06-28 08:54 | PDOC ---
PROGRESS NOTES Chief Complaint Chief Complaint Fever Hypernatremia ASSESSMENT AND PLAN: 1. UTI: recurrent, complicated with chronic Casas for retention. cult with pansensitive E.coli and almost panresistant Klebsiella. on meropenem 7-10d 2. Sepsis: severe hypotension POA, now resolved, as are fevers, tachycardia 3. Hypernatremia: improving. 2/2 dehydration. cont IVF 4. Hypokalemia: persistent. replete 5. Pressure/decub ulcer: chronic, with wound vac in place. 6. Bed bound with chronic contractures; NH resident. needs help with feeding 7. Dysphagia: DP diet 1, ProcalAmine 8. Hypoalbuminemia: moderated PCM, exacerbated by acute inflammation 9. Parkinson's: on sinemet. appreciate neuro input 10. Prophylaxis: lovenox 11. Dispo: will need 1 week of IV Abx, hs PICC Full Code. DPOA: brother Pavan Prognosis: poor History of Present Illness History of Present Illness wakes easily. denies pain or other c/o Vitals Vitals Vital Signs Date Time Temp Pulse Resp B/P (MAP) Pulse Ox O2 Delivery O2 Flow Rate FiO2 06/28/17 03:00 98.5 79 18 147/79 (101) 98 Room Air 98.5 06/27/17 11:00 Physical Exam General: Alert, Cooperative, No acute distress Heart: Regular rate Lungs: Clear Abdomen: Normal bowel sounds, Soft, No tenderness Extremities: No clubbing, Other (contractures UE, LE) Skin: Other (large bed sore, wound vac) Labs LABS Laboratory Tests Test 06/28/17 04:51 White Blood Count 6.9 x10^3/uL (4.0-11.0) Red Blood Count 4.07 x10^6/uL (3.50-5.40) Hemoglobin 12.1 g/dL (12.0-15.5) Hematocrit 36.2 % (36.0-47.0) Mean Corpuscular Volume 89 fL (79-100) Mean Corpuscular Hemoglobin 30 pg (25-35) Mean Corpuscular Hemoglobin Concent 34 g/dL (31-37) Red Cell Distribution Width 14.1 % (11.5-14.5) Platelet Count 215 x10^3/uL (140-400) Neutrophils (%) (Auto) 66 % (31-73) Lymphocytes (%) (Auto) 25 % (24-48) Monocytes (%) (Auto) 6 % (0-9) Eosinophils (%) (Auto) 2 % (0-3) Basophils (%) (Auto) 1 % (0-3) Neutrophils # (Auto) 4.6 x10^3uL (1.8-7.7) Lymphocytes # (Auto) 1.7 x10^3/uL (1.0-4.8) Monocytes # (Auto) 0.4 x10^3/uL (0.0-1.1) Eosinophils # (Auto) 0.1 x10^3/uL (0.0-0.7) Basophils # (Auto) 0.1 x10^3/uL (0.0-0.2) Sodium Level 141 mmol/L (136-145) Potassium Level 3.8 mmol/L (3.5-5.1) Chloride Level 108 mmol/L (98-107) Carbon Dioxide Level 28 mmol/L (21-32) Anion Gap 5 (6-14) Blood Urea Nitrogen 18 mg/dL (7-20) Creatinine 0.5 mg/dL (0.6-1.0) Estimated GFR (Cockcroft-Gault) 120.9 Glucose Level 96 mg/dL (70-99) Calcium Level 9.0 mg/dL (8.5-10.1) MADELEINE BOND MD Jun 28, 2017 08:54
[2017-06-28] MEDS: MECLIZINE HCL 12.5 MG TABLET. PO SCH ×4 (09:30→20:59)
[2017-06-28] MEDS: FUROSEMIDE 20 MG TABLET PO SCH (09:30)
[2017-06-28] MEDS: DOCUSATE SODIUM 100 MG CAPSULE. PO SCH ×2 (09:30→21:00)
[2017-06-28] MEDS: POLYETHYLENE GLYCOL 3350 17 GM PACKET. PO SCH (09:30)
[2017-06-28] MEDS: MULTIVITAMIN with MINERAL TABLET. PO SCH (09:31)
[2017-06-28] MEDS: hydrALAZINE 25 MG TABLET PO SCH ×2 (09:31→20:59)
[2017-06-28] MEDS: ACETAMINOPHEN 325 MG TABLET. PO SCH ×4 (09:31→20:59)
[2017-06-28] MEDS: OLANZapine 5 MG TABLET PO SCH (09:31)
[2017-06-28] MEDS: CHOLECALCIFEROL (VITAMIN D3) 1,000 UNIT TABLET PO SCH (09:31)
[2017-06-28] MEDS: oxyCODONE/APAP 5/325 1 TAB TABLET PO SCH ×4 (09:32→21:00)
[2017-06-28] MEDS: LACTOBACILLUS RHAMNOSUS GG 1 CAPSULE. PO SCH ×2 (09:32→21:02)
[2017-06-28] MEDS: ENOXAPARIN 30 MG/0.3 ML SYRINGE. SQ SCH (09:32)
[2017-06-28] MEDS: CARBIDOPA/LEVODOPA 25/100MG TABLET PO SCH ×4 (09:32→20:59)
[2017-06-28] MEDS: MEROPENEM 1 GM in IV NORMAL SALINE 100ML 100 ML IV SCH ×2 (09:35→21:23)
[2017-06-28] MEDS: ASCORBIC ACID 500 MG TABLET PO SCH (09:35)
[2017-06-28 10:30] VITALS: BP 141/76
--- NOTE | 2017-06-28 11:06 | PDOC ---
Subjective: Subjective: Feeling pretty good. Says eating. Objective: Objective: Per RN, did well w/ breakfast - eggs and applesauce. Vital Signs: Vital Signs Date Time Temp Pulse Resp B/P (MAP) Pulse Ox O2 Delivery O2 Flow Rate FiO2 06/28/17 09:32 Room Air 06/28/17 09:31 59 154/68 06/28/17 07:45 97.9 20 98 97.9 06/27/17 11:00 Labs: Laboratory Tests Test 06/28/17 04:51 White Blood Count 6.9 x10^3/uL Red Blood Count 4.07 x10^6/uL Hemoglobin 12.1 g/dL Hematocrit 36.2 % Mean Corpuscular Volume 89 fL Mean Corpuscular Hemoglobin 30 pg Mean Corpuscular Hemoglobin Concent 34 g/dL Red Cell Distribution Width 14.1 % Platelet Count 215 x10^3/uL Neutrophils (%) (Auto) 66 % Lymphocytes (%) (Auto) 25 % Monocytes (%) (Auto) 6 % Eosinophils (%) (Auto) 2 % Basophils (%) (Auto) 1 % Neutrophils # (Auto) 4.6 x10^3uL Lymphocytes # (Auto) 1.7 x10^3/uL Monocytes # (Auto) 0.4 x10^3/uL Eosinophils # (Auto) 0.1 x10^3/uL Basophils # (Auto) 0.1 x10^3/uL Sodium Level 141 mmol/L Potassium Level 3.8 mmol/L Chloride Level 108 mmol/L Carbon Dioxide Level 28 mmol/L Anion Gap 5 Blood Urea Nitrogen 18 mg/dL Creatinine 0.5 mg/dL Estimated GFR (Cockcroft-Gault) 120.9 Glucose Level 96 mg/dL Calcium Level 9.0 mg/dL Imaging: MANAGEMENT LEAD Bedside Swallow Eval Bedside swallow eval completed earlier this date. IMPRESSIONS: Moderate oropharyngeal dysphagia w/ s/s aspiration on even tsp amts of thin liquids. Safe but inefficient swallow of puree and honey thick liquids was noted today. Pt states PEG is no longer in place d/t complications but it appears that it may be needed for supplemental non-oral nutrition, lisandra given efficiency issues and nutrition requirements in wound healing. Prognosis for safe intake of modified diet is fair; prognosis for ADEQUATE intake to meet nutritional needs is poor. PE: GEN: NAD LUNGS: CTAB HEART: RRR ABD: NABS, S/ND/NT NEURO/PSYCH: awake/alert A/P: UTI, infected decubitus ulcer Hypernatremia, elevated lipase Parkinson's Dysphagia - h/o surg placed G tube in past -- Tolerating dysphagia diet. GRACIE DUDLEY Jun 28, 2017 11:06
--- NOTE | 2017-06-28 11:14 | PDOC ---
Infectious Disease Note Subjective Subjective Feeling alright ROS ROS GEN: Denies fevers, chills, sweats HEENT: Denies blurred vision, sore throat CV: Denies chest pain RESP: Denies shortness of air, cough GI: Denies n/v/d NEURO: Denies confusion, dizziness MSK: Denies weakness, joint pain/swelling Vital Sign Vital Signs Vital Signs Date Time Temp Pulse Resp B/P (MAP) Pulse Ox O2 Delivery O2 Flow Rate FiO2 06/28/17 09:32 Room Air 06/28/17 09:31 59 154/68 06/28/17 07:45 97.9 20 98 97.9 06/27/17 11:00 Physical Exam PHYSICAL EXAM GENERAL: Alert, relaxed appearance HEENT: Oral cavity dry LUNGS: Clear HEART: S1 and S2 ABD: Soft, NT, BS active : Casas ([facility] 06/25) EXT: No edema, no cyanosis 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 left buttocks wound vac IV: ok Labs Lab Laboratory Tests Test 06/28/17 04:51 White Blood Count 6.9 x10^3/uL (4.0-11.0) Red Blood Count 4.07 x10^6/uL (3.50-5.40) Hemoglobin 12.1 g/dL (12.0-15.5) Hematocrit 36.2 % (36.0-47.0) Mean Corpuscular Volume 89 fL (79-100) Mean Corpuscular Hemoglobin 30 pg (25-35) Mean Corpuscular Hemoglobin Concent 34 g/dL (31-37) Red Cell Distribution Width 14.1 % (11.5-14.5) Platelet Count 215 x10^3/uL (140-400) Neutrophils (%) (Auto) 66 % (31-73) Lymphocytes (%) (Auto) 25 % (24-48) Monocytes (%) (Auto) 6 % (0-9) Eosinophils (%) (Auto) 2 % (0-3) Basophils (%) (Auto) 1 % (0-3) Neutrophils # (Auto) 4.6 x10^3uL (1.8-7.7) Lymphocytes # (Auto) 1.7 x10^3/uL (1.0-4.8) Monocytes # (Auto) 0.4 x10^3/uL (0.0-1.1) Eosinophils # (Auto) 0.1 x10^3/uL (0.0-0.7) Basophils # (Auto) 0.1 x10^3/uL (0.0-0.2) Sodium Level 141 mmol/L (136-145) Potassium Level 3.8 mmol/L (3.5-5.1) Chloride Level 108 mmol/L (98-107) Carbon Dioxide Level 28 mmol/L (21-32) Anion Gap 5 (6-14) Blood Urea Nitrogen 18 mg/dL (7-20) Creatinine 0.5 mg/dL (0.6-1.0) Estimated GFR (Cockcroft-Gault) 120.9 Glucose Level 96 mg/dL (70-99) Calcium Level 9.0 mg/dL (8.5-10.1) Micro Klebsiella pneumoniae Greater than 100,000 colony forming units per mL URINE CULTURE RES 2 Final Escherichia coli Greater than 100,000 colony forming units per mL Cefazolin <=4 ug/mL Cefazolin with an CAT <=16 predicts susceptibility to the oral agents cefaclor, cefdinir, cefpodoxime, cefprozil, cefuroxime, cephalexin, and loracarbef when used for therapy of uncomplicated urinary tract infections due to E. coli, Klebsiella pneumoniae, and Proteus mirabilis. ANTIMICROBIAL SUSCEPTIBILITY Final Comment S = Susceptible; I = Intermediate; R = Resistant P = Positive; N = Negative MICS are expressed in micrograms per mL Antibiotic RSLT#1 RSLT#2 RSLT#3 RSLT#4 Amoxicillin/Clavulanic Acid I S Ampicillin R S Cefazolin R Cefepime R S Ceftriaxone R S Cefuroxime R S Cephalothin R S Ciprofloxacin R S Ertapenem S S Gentamicin R S Imipenem S S Levofloxacin R S Nitrofurantoin I S CONTINUED ON NEXT PAGE RUN DATE: 06/26/17 PAGE 2 RUN TIME: 9[address] [facility] [address] [place] [address] Ruddy Rosales M.D., Crisis Manager SPEC: [id number] PATIENT: LAURA ARROYO [id number] ( Continued) Procedure Result ANTIMICROBIAL SUSCEPTIBILITY Final (continued) Piperacillin R S Tetracycline S S Tobramycin R S Trimethoprim/Sulfa R S Objective Assessment CAUTI. POA 06/24 MDR Klebsiella/Ecoli Leukocytosis -better Decubitus ulcer w/ necrotic tissue of left buttocks s/p debridement down to fascia, 05/27. h/o alcaligenes spp. ESR 39 Hypernatremia Elevated lipase Parkinson's w/ tardive dyskinesia, mostly chair bound ? hx C. diff 2016. Plan Plan of Care Meropenem started 06/27 Could change to Fosfomycin at discharge at anytime 3 gm po q 48 for 3 doses can start 06/29 OKSANA GORE MD Jun 28, 2017 11:14
[2017-06-28 14:30] VITALS: BP 120/75
--- NOTE | 2017-06-28 17:54 | PDOC ---
PROGRESS NOTES Assessment Assessment PD Dementia. HTN CHF Rigidity. RECOMMENDATIONS/PLAN: Continue Sinemet 25/100 mg qid. Treat medical diseases. OT/PT. Past Medical History Cardiovascular: CHF, HTN Pulmonary: No pertinent hx CENTRAL NERVOUS SYSTEM: Other Hepatobiliary: No pertinent hx Psych: Anxiety, Addictions, Schizophrenia Musculoskeletal: low back pain Renal/: Other Past Surgical History Hysterectomy, Other (wound vac decub ) Family History No Significant Social History Smoke: No ALCOHOL: none Drugs: None ALLERGY: Reviewed. MEDICATIONS: Refer to MAR REVIEW OF SYSTEMS: Constitutional: Dementia features. Head: No traumatic brain or head injury. Skin: No edema, or rash. Ear: No infection. Eyes: No vision loss, or diplopia. Nose: No bleeding or purulent discharges. Hearing: Hearing loss. Neck: No injury. Breast: No history of cancer, masses, or discharges. Cardiac: HTN Pulmonary: No COPD. GI: No GI Ulcer, GI bleeding. Urinary/genital: UTI. Endocrine: No cousin face, craniofacial dysmorphism, polydactyly. Skeletomuscular: Generalized weakness. Neurological: see HP. Psychiatric: Denies drug use/abuse. Otherwise, not [id number] review of systems. PHYSICAL EXAMINATION: General appearance in subacute distress. HEENT: Normocephalic and nontraumatic. Eyes, nose, ears, and throat are unremarkable. Hearing decrease. Neck is supple. No lymphadenopathy. No Crepitus. Cardiovascular: S1, S2, regular rate and rhythm. Pulmonary: Clear to auscultation bilaterally. Abdomen: Bowel sounds are positive. Abdomen is soft, nontender, and nondistended. Extremities: No rash, lesions, or edema. No restriction of range of motion NEUROLOGICAL EXAMINATION: Awake. Not oriented to time, place and person. PERRL. EOMI. CN: no focal findings. Muscle tone: increased in all extremities with joints deformities. Muscle strength: 4- DTR: 2- Plantar reflex: Neutral response bilaterally Gait: unable to walk. Sensory exam: no abnormal findings. No acute cerebellar signs elicited. F-T-N test not performed due to difficult to move hands. Objective Objective Vital Signs Date Time Temp Pulse Resp B/P (MAP) Pulse Ox O2 Delivery O2 Flow Rate FiO2 06/28/17 17:02 Room Air 06/28/17 15:08 98 06/28/17 14:30 97.7 82 20 120/75 (90) 97.7 06/27/17 11:00 Intake and Output 06/28/17 07:00 Intake Total 510 ml Output Total 650 ml Balance -140 ml Intake Oral 510 ml Output Urine Total 650 ml # Voids 3 # Bowel Movements 2 Vitals Signs Vitals VS - Last 72 Hours, by Label Date Time Temp Pulse Resp B/P (MAP) Pulse Ox O2 Delivery O2 Flow Rate FiO2 06/28/17 17:02 Room Air 06/28/17 15:08 98 Room Air 06/28/17 14:30 97.7 82 20 120/75 (90) 98 Room Air 97.7 06/28/17 14:01 Room Air 06/28/17 10:30 97.5 74 20 141/76 (97) 98 Room Air 97.5 06/28/17 09:32 Room Air 06/28/17 09:31 59 154/68 06/28/17 08:00 Room Air 06/28/17 07:45 97.9 59 20 154/68 (96) 98 Room Air 97.9 06/28/17 03:00 98.5 79 18 147/79 (101) 98 Room Air 98.5 06/27/17 23:00 98.3 79 20 145/74 (97) 93 Room Air 98.3 06/27/17 21:46 94 Room Air 06/27/17 21:45 67 130/67 06/27/17 20:00 Room Air 06/27/17 19:00 98.4 67 20 130/67 (88) 94 Room Air 98.4 06/27/17 17:46 18 06/27/17 16:46 18 93 Room Air 06/27/17 15:30 96.6 71 18 156/78 (104) 93 Room Air 96.6 06/27/17 14:29 18 93 Room Air 06/27/17 11:00 96.6 71 18 156/78 (104) 93 Room Air 96.6 06/27/17 09:35 67 154/87 06/27/17 09:34 20 98 Room Air 06/27/17 08:00 Room Air 06/27/17 07:00 97.7 67 18 154/87 (109) 98 97.7 Laboratory Laboratory Laboratory Tests Test 06/28/17 04:51 White Blood Count 6.9 x10^3/uL (4.0-11.0) Red Blood Count 4.07 x10^6/uL (3.50-5.40) Hemoglobin 12.1 g/dL (12.0-15.5) Hematocrit 36.2 % (36.0-47.0) Mean Corpuscular Volume 89 fL (79-100) Mean Corpuscular Hemoglobin 30 pg (25-35) Mean Corpuscular Hemoglobin Concent 34 g/dL (31-37) Red Cell Distribution Width 14.1 % (11.5-14.5) Platelet Count 215 x10^3/uL (140-400) Neutrophils (%) (Auto) 66 % (31-73) Lymphocytes (%) (Auto) 25 % (24-48) Monocytes (%) (Auto) 6 % (0-9) Eosinophils (%) (Auto) 2 % (0-3) Basophils (%) (Auto) 1 % (0-3) Neutrophils # (Auto) 4.6 x10^3uL (1.8-7.7) Lymphocytes # (Auto) 1.7 x10^3/uL (1.0-4.8) Monocytes # (Auto) 0.4 x10^3/uL (0.0-1.1) Eosinophils # (Auto) 0.1 x10^3/uL (0.0-0.7) Basophils # (Auto) 0.1 x10^3/uL (0.0-0.2) Sodium Level 141 mmol/L (136-145) Potassium Level 3.8 mmol/L (3.5-5.1) Chloride Level 108 mmol/L (98-107) Carbon Dioxide Level 28 mmol/L (21-32) Anion Gap 5 (6-14) Blood Urea Nitrogen 18 mg/dL (7-20) Creatinine 0.5 mg/dL (0.6-1.0) Estimated GFR (Cockcroft-Gault) 120.9 Glucose Level 96 mg/dL (70-99) Calcium Level 9.0 mg/dL (8.5-10.1) Microbiology 06/24/17 Blood Culture - Preliminary, Resulted NO GROWTH AFTER 4 DAYS 06/24/17 Urine Culture - Final, Complete 06/24/17 Urine Culture Result 1 (CAT) - Final, Complete 06/24/17 Urine Culture Result 2 (CAT) - Final, Complete 06/24/17 Antimicrobic Susceptibility - Final, Complete Comment Review of Relevant I have reviewed the following items clovis (where applicable) has been applied. ESTELITA VO MD Jun 28, 2017 17:54
[2017-06-28 19:00] VITALS: BP 121/73
[2017-06-28] MEDS: MIRTAZAPINE 7.5 MG TABLET. PO SCH (20:59)
[2017-06-28 23:00] VITALS: BP 137/68
[2017-06-29] MEDS: AMINO AC 3%/ELECTROLYTE/GLYCER 1,000 ML IV SCH (02:57)
[2017-06-29 03:00] VITALS: BP 135/70
[2017-06-29 06:32] LABS: CREATININE 0.6 mg/dL (0.6-1.0); POTASSIUM 4.4 mmol/L (3.5-5.1)
[2017-06-29 07:00] VITALS: BP 128/65
[2017-06-29 07:23] LABS: BASO # 0.1 x10^3/uL (0.0-0.2); BASO % 1 % (0-3); EOS % 2 % (0-3); HEMATOCRIT 37.2 % (36.0-47.0); HEMOGLOBIN 12.2 g/dL (12.0-15.5); LYMPH % 26 % (24-48); MEAN CORPUSCULAR HEMOGLOBIN 30 pg (25-35); MEAN CORPUSCULAR HGB CONC 33 g/dL (31-37); MEAN CORPUSCULAR VOLUME 91 fL (79-100); MONO % 7 % (0-9); NEUT % 63 % (31-73); PLATELET COUNT 206 x10^3/uL (140-400); RED BLOOD COUNT 4.07 x10^6/uL (3.50-5.40); RED CELL DISTRIBUTION WIDTH 14.4 % (11.5-14.5); WHITE BLOOD COUNT 7.6 x10^3/uL (4.0-11.0)
[2017-06-29] MEDS: MEROPENEM 1 GM in IV NORMAL SALINE 100ML 100 ML IV SCH (08:32)
[2017-06-29] MEDS: POLYETHYLENE GLYCOL 3350 17 GM PACKET. PO SCH (08:32)
[2017-06-29] MEDS: MECLIZINE HCL 12.5 MG TABLET. PO SCH ×2 (08:32→13:06)
[2017-06-29] MEDS: ENOXAPARIN 30 MG/0.3 ML SYRINGE. SQ SCH (08:32)
[2017-06-29] MEDS: OLANZapine 5 MG TABLET PO SCH (08:32)
[2017-06-29] MEDS: CHOLECALCIFEROL (VITAMIN D3) 1,000 UNIT TABLET PO SCH (08:33)
[2017-06-29] MEDS: LACTOBACILLUS RHAMNOSUS GG 1 CAPSULE. PO SCH (08:33)
[2017-06-29] MEDS: ACETAMINOPHEN 325 MG TABLET. PO SCH ×2 (08:33→13:06)
[2017-06-29] MEDS: oxyCODONE/APAP 5/325 1 TAB TABLET PO SCH ×2 (08:33→13:06)
[2017-06-29] MEDS: DOCUSATE SODIUM 100 MG CAPSULE. PO SCH (08:33)
[2017-06-29] MEDS: FUROSEMIDE 20 MG TABLET PO SCH (08:33)
[2017-06-29] MEDS: MULTIVITAMIN with MINERAL TABLET. PO SCH (08:33)
[2017-06-29] MEDS: ASCORBIC ACID 500 MG TABLET PO SCH (08:33)
[2017-06-29] MEDS: CARBIDOPA/LEVODOPA 25/100MG TABLET PO SCH ×2 (08:33→13:06)
[2017-06-29] MEDS: hydrALAZINE 25 MG TABLET PO SCH (08:43)
[2017-06-29 11:00] VITALS: BP 130/73
--- NOTE | 2017-06-29 11:33 | PDOC ---
Infectious Disease Note Subjective Subjective Feeling alright ROS ROS GEN: Denies fevers, chills, sweats HEENT: Denies blurred vision, sore throat CV: Denies chest pain RESP: Denies shortness of air, cough GI: Denies n/v/d NEURO: Denies confusion, dizziness MSK: Denies weakness, joint pain/swelling Vital Sign Vital Signs Vital Signs Date Time Temp Pulse Resp B/P (MAP) Pulse Ox O2 Delivery O2 Flow Rate FiO2 06/29/17 09:33 Room Air 06/29/17 08:43 70 128/55 06/29/17 07:00 99.1 18 98 99.1 Physical Exam PHYSICAL EXAM GENERAL: Alert, relaxed appearance HEENT: Oral cavity dry LUNGS: Clear HEART: S1 and S2 ABD: Soft, NT, BS active : Casas ([facility] 06/25) EXT: No edema, no cyanosis SYS DIR: Alert, 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 left buttocks wound vac IV: ok Labs Lab Laboratory Tests Test 06/29/17 05:40 White Blood Count 7.6 x10^3/uL (4.0-11.0) Red Blood Count 4.07 x10^6/uL (3.50-5.40) Hemoglobin 12.2 g/dL (12.0-15.5) Hematocrit 37.2 % (36.0-47.0) Mean Corpuscular Volume 91 fL (79-100) Mean Corpuscular Hemoglobin 30 pg (25-35) Mean Corpuscular Hemoglobin Concent 33 g/dL (31-37) Red Cell Distribution Width 14.4 % (11.5-14.5) Platelet Count 206 x10^3/uL (140-400) Neutrophils (%) (Auto) 63 % (31-73) Lymphocytes (%) (Auto) 26 % (24-48) Monocytes (%) (Auto) 7 % (0-9) Eosinophils (%) (Auto) 2 % (0-3) Basophils (%) (Auto) 1 % (0-3) Neutrophils # (Auto) 4.8 x10^3uL (1.8-7.7) Lymphocytes # (Auto) 2.0 x10^3/uL (1.0-4.8) Monocytes # (Auto) 0.6 x10^3/uL (0.0-1.1) Eosinophils # (Auto) 0.2 x10^3/uL (0.0-0.7) Basophils # (Auto) 0.1 x10^3/uL (0.0-0.2) Sodium Level 139 mmol/L (136-145) Potassium Level 4.4 mmol/L (3.5-5.1) Chloride Level 106 mmol/L (98-107) Carbon Dioxide Level 29 mmol/L (21-32) Anion Gap 4 (6-14) Blood Urea Nitrogen 24 mg/dL (7-20) Creatinine 0.6 mg/dL (0.6-1.0) Estimated GFR (Cockcroft-Gault) 98.0 Glucose Level 90 mg/dL (70-99) Calcium Level 9.0 mg/dL (8.5-10.1) Micro Klebsiella pneumoniae Greater than 100,000 colony forming units per mL URINE CULTURE RES 2 Final Escherichia coli Greater than 100,000 colony forming units per mL Cefazolin <=4 ug/mL Cefazolin with an CAT <=16 predicts susceptibility to the oral agents cefaclor, cefdinir, cefpodoxime, cefprozil, cefuroxime, cephalexin, and loracarbef when used for therapy of uncomplicated urinary tract infections due to E. coli, Klebsiella pneumoniae, and Proteus mirabilis. ANTIMICROBIAL SUSCEPTIBILITY Final Comment S = Susceptible; I = Intermediate; R = Resistant P = Positive; N = Negative MICS are expressed in micrograms per mL Antibiotic RSLT#1 RSLT#2 RSLT#3 RSLT#4 Amoxicillin/Clavulanic Acid I S Ampicillin R S Cefazolin R Cefepime R S Ceftriaxone R S Cefuroxime R S Cephalothin R S Ciprofloxacin R S Ertapenem S S Gentamicin R S Imipenem S S Levofloxacin R S Nitrofurantoin I S CONTINUED ON NEXT PAGE RUN DATE: 06/26/17 PAGE 2 RUN TIME: 5698 [facility] [address] [place] [address] Ruddy Rosales M.D., Contract Graphic Designer SPEC: [id number] PATIENT: LAURA ARROYO [id number] ( Continued) Procedure Result ANTIMICROBIAL SUSCEPTIBILITY Final (continued) Piperacillin R S Tetracycline S S Tobramycin R S Trimethoprim/Sulfa R S Objective Assessment CAUTI. POA 06/24 MDR Klebsiella/Ecoli Leukocytosis -better Decubitus ulcer w/ necrotic tissue of left buttocks s/p debridement down to fascia, 05/27. h/o alcaligenes spp. ESR 39 Hypernatremia Elevated lipase Parkinson's w/ tardive dyskinesia, mostly chair bound ? hx C. diff 2016. Plan Plan of Care Meropenem started 06/27 Could change to Fosfomycin at discharge at anytime 3 gm po q 48 for 3 doses can start today at facility OKSANA GORE MD Jun 29, 2017 11:33
[2017-06-29] MEDS ORDERED: HYDR-2868 PO (11:43)
--- NOTE | 2017-06-29 11:51 | PDOC ---
Objective: Objective: Reviewed other notes, no new GI concerns. Vital Signs: Vital Signs Date Time Temp Pulse Resp B/P (MAP) Pulse Ox O2 Delivery O2 Flow Rate FiO2 06/29/17 09:33 Room Air 06/29/17 08:43 70 128/55 06/29/17 07:00 99.1 18 98 99.1 Labs: Laboratory Tests Test 06/29/17 05:40 White Blood Count 7.6 x10^3/uL Red Blood Count 4.07 x10^6/uL Hemoglobin 12.2 g/dL Hematocrit 37.2 % Mean Corpuscular Volume 91 fL Mean Corpuscular Hemoglobin 30 pg Mean Corpuscular Hemoglobin Concent 33 g/dL Red Cell Distribution Width 14.4 % Platelet Count 206 x10^3/uL Neutrophils (%) (Auto) 63 % Lymphocytes (%) (Auto) 26 % Monocytes (%) (Auto) 7 % Eosinophils (%) (Auto) 2 % Basophils (%) (Auto) 1 % Neutrophils # (Auto) 4.8 x10^3uL Lymphocytes # (Auto) 2.0 x10^3/uL Monocytes # (Auto) 0.6 x10^3/uL Eosinophils # (Auto) 0.2 x10^3/uL Basophils # (Auto) 0.1 x10^3/uL Sodium Level 139 mmol/L Potassium Level 4.4 mmol/L Chloride Level 106 mmol/L Carbon Dioxide Level 29 mmol/L Anion Gap 4 Blood Urea Nitrogen 24 mg/dL Creatinine 0.6 mg/dL Estimated GFR (Cockcroft-Gault) 98.0 Glucose Level 90 mg/dL Calcium Level 9.0 mg/dL PE: GEN: NAD NEURO/PSYCH: asleep A/P: UTI, infected decubitus ulcer Hypernatremia - resolved Elevated lipase w/o pancreatitis Dysphagia - tolerating diet, has had G tube (surgically placed) in the past -- Continue same per GI. GRACIE DUDLEY Jun 29, 2017 11:51
--- NOTE | 2017-06-29 14:07 | PDOC3 ---
Discharge Summary [facility] Date of Admission: Jun 24, 2017 Discharge Date: Jun 29, 2017 Admitting Diagnosis 1. UTI: recurrent, complicated with chronic Casas for retention. cult with pansensitive E.coli and almost panresistant Klebsiella. on meropenem 7-10d 2. Sepsis: severe hypotension POA, now resolved, as are fevers, tachycardia 3. Hypernatremia: improving. 2/2 dehydration. cont IVF 4. Hypokalemia: persistent. replete 5. Pressure/decub ulcer: chronic, with wound vac in place. 6. Bed bound with chronic contractures; NH resident. needs help with feeding 7. Dysphagia: DP diet 1, ProcalAmine, previous PEG 8. Hypoalbuminemia: moderated PCM, exacerbated by acute inflammation 9. Parkinson's: on sinemet. appreciate neuro input metabolic encephalopathy with sepsis, dementia, Parkinson dz Full Code. DPOA: brother Pavan Problems: Final Diagnosis CONSULTS GI NEURO ID Brief Hospital Course Ms. Brothers is a 71 old F, with severe parkinson dz, not moving much, likely bedbound, chronic Casas, was sen from SNF for confusion. was found MDR URI,KPNA/ Ecoli. on dysphagia 1 diet, eat 50-70%food. improved with meropenum. stable to dc back to snf. cont fosfomycin x3 more doses as per ID. DC PPN. dc time 35min. General: Alert, Cooperative, No acute distress Heart: Regular rate Lungs: Clear Abdomen: Normal bowel sounds, Soft, No tenderness Extremities: No clubbing, Other (contractures UE, LE) Skin: Other (large bed sore, wound vac) Problems: Disposition snf CONDITION AT DISCHARGE: Improved, Stable Diet dysphagia 1 Scheduled Acetaminophen (Tylenol), 325 MG PO QID, (Reported) Carbidopa/Levodopa (Carbidopa-Levodopa 25-100 Tab), 1 EACH PO BID, (Reported) Cholecalciferol (Vitamin D3) (Vitamin D3), 1,000 UNIT PO DAILY, (Reported) Docusate Sodium (Colace), 1 CAP PO BID, (Reported) Furosemide (Furosemide), 20 MG PO DAILY, (Reported) Hydralazine Hcl (Hydralazine Hcl), 25 MG PO BID Meclizine Hcl (Meclizine Hcl), 1 TAB PO QID, (Reported) Mirtazapine (Mirtazapine), 0.5 TAB PO QHS, (Reported) Olanzapine (Olanzapine), 5 MG PO DAILY, (Reported) Oxycodone/Apap 5-325 (Percocet 5-325 Mg Tablet), 1 TAB PO QID, (Reported) Polyethylene Glycol 3350 (Polyethylene Glycol 3350), 17 GM PO DAILY, (Reported) Potassium Chloride (Potassium Chloride), 10 MEQ PO DAILY, (Reported) Miscellaneous Medications Multivitamin/Iron/Folic Acid (Multi-Day Plus Iron Tablet), 1 EACH PO, (Reported) Discontinued Medications Amoxicillin/Potassium Clav (Augmentin 500-125 Tablet), 1 TAB PO BID, (Reported) Olanzapine (Olanzapine), 5 MG PO DAILY, (Reported) Follow Up [facility] ANKUR POSADA MD Jun 29, 2017 14:07
--- NOTE | 2017-06-29 15:58 | PDOC ---
PROGRESS NOTES Assessment Assessment PD Dementia. HTN CHF Rigidity. RECOMMENDATIONS/PLAN: Continue Sinemet 25/100 mg qid. Treat medical diseases. OT/PT. Past Medical History Cardiovascular: CHF, HTN Pulmonary: No pertinent hx CENTRAL NERVOUS SYSTEM: Other Hepatobiliary: No pertinent hx Psych: Anxiety, Addictions, Schizophrenia Musculoskeletal: low back pain Renal/: Other Past Surgical History Hysterectomy, Other (wound vac decub ) Family History No Significant Social History Smoke: No ALCOHOL: none Drugs: None ALLERGY: Reviewed. MEDICATIONS: Refer to MAR REVIEW OF SYSTEMS: Constitutional: Dementia features. Head: No traumatic brain or head injury. Skin: No edema, or rash. Ear: No infection. Eyes: No vision loss, or diplopia. Nose: No bleeding or purulent discharges. Hearing: Hearing loss. Neck: No injury. Breast: No history of cancer, masses, or discharges. Cardiac: HTN Pulmonary: No COPD. GI: No GI Ulcer, GI bleeding. Urinary/genital: UTI. Endocrine: No cousin face, craniofacial dysmorphism, polydactyly. Skeletomuscular: Generalized weakness. Neurological: see HP. Psychiatric: Denies drug use/abuse. Otherwise, not [id number] review of systems. PHYSICAL EXAMINATION: General appearance in subacute distress. HEENT: Normocephalic and nontraumatic. Eyes, nose, ears, and throat are unremarkable. Hearing decrease. Neck is supple. No lymphadenopathy. No Crepitus. Cardiovascular: S1, S2, regular rate and rhythm. Pulmonary: Clear to auscultation bilaterally. Abdomen: Bowel sounds are positive. Abdomen is soft, nontender, and nondistended. Extremities: No rash, lesions, or edema. No restriction of range of motion NEUROLOGICAL EXAMINATION: Awake. Able to understand some questions. Not oriented to time, place and person. PERRL. EOMI. CN: no focal findings. Muscle tone: increased in all extremities with joints deformities. Muscle strength: 4- DTR: 2- Plantar reflex: Neutral response bilaterally Gait: unable to walk. Sensory exam: no abnormal findings. No acute cerebellar signs elicited. F-T-N test not performed due to difficult to move hands. Objective Objective Vital Signs Date Time Temp Pulse Resp B/P (MAP) Pulse Ox O2 Delivery O2 Flow Rate FiO2 06/29/17 14:20 Room Air 06/29/17 11:00 98.1 53 18 130/73 (92) 97 98.1 Intake and Output 06/29/17 07:00 Intake Total 390 ml Output Total 1300 ml Balance -910 ml Intake Oral 390 ml Output Urine Total 1300 ml Vitals Signs Vitals VS - Last 72 Hours, by Label Date Time Temp Pulse Resp B/P (MAP) Pulse Ox O2 Delivery O2 Flow Rate FiO2 06/29/17 14:20 Room Air 06/29/17 13:06 Room Air 06/29/17 11:00 98.1 53 18 130/73 (92) 97 Room Air 98.1 06/29/17 08:43 70 128/55 06/29/17 08:33 Room Air 06/29/17 08:00 Room Air 06/29/17 07:00 99.1 70 18 128/65 (86) 98 Room Air 99.1 06/29/17 03:00 97.7 76 18 135/70 (91) 96 Room Air 97.7 06/28/17 23:00 98.1 76 18 137/68 (91) 94 Room Air 98.1 06/28/17 20:59 82 120/75 06/28/17 20:00 Room Air 06/28/17 19:00 97.7 80 18 121/73 (89) 96 Room Air 97.7 06/28/17 18:02 98 06/28/17 17:02 Room Air 06/28/17 14:30 97.7 82 20 120/75 (90) 98 Room Air 97.7 06/28/17 14:01 Room Air 06/28/17 10:30 97.5 74 20 141/76 (97) 98 Room Air 97.5 06/28/17 09:32 Room Air 06/28/17 09:31 59 154/68 06/28/17 08:00 Room Air 06/28/17 07:45 97.9 59 20 154/68 (96) 98 Room Air 97.9 Laboratory Laboratory Laboratory Tests Test 06/29/17 05:40 White Blood Count 7.6 x10^3/uL (4.0-11.0) Red Blood Count 4.07 x10^6/uL (3.50-5.40) Hemoglobin 12.2 g/dL (12.0-15.5) Hematocrit 37.2 % (36.0-47.0) Mean Corpuscular Volume 91 fL (79-100) Mean Corpuscular Hemoglobin 30 pg (25-35) Mean Corpuscular Hemoglobin Concent 33 g/dL (31-37) Red Cell Distribution Width 14.4 % (11.5-14.5) Platelet Count 206 x10^3/uL (140-400) Neutrophils (%) (Auto) 63 % (31-73) Lymphocytes (%) (Auto) 26 % (24-48) Monocytes (%) (Auto) 7 % (0-9) Eosinophils (%) (Auto) 2 % (0-3) Basophils (%) (Auto) 1 % (0-3) Neutrophils # (Auto) 4.8 x10^3uL (1.8-7.7) Lymphocytes # (Auto) 2.0 x10^3/uL (1.0-4.8) Monocytes # (Auto) 0.6 x10^3/uL (0.0-1.1) Eosinophils # (Auto) 0.2 x10^3/uL (0.0-0.7) Basophils # (Auto) 0.1 x10^3/uL (0.0-0.2) Sodium Level 139 mmol/L (136-145) Potassium Level 4.4 mmol/L (3.5-5.1) Chloride Level 106 mmol/L (98-107) Carbon Dioxide Level 29 mmol/L (21-32) Anion Gap 4 (6-14) Blood Urea Nitrogen 24 mg/dL (7-20) Creatinine 0.6 mg/dL (0.6-1.0) Estimated GFR (Cockcroft-Gault) 98.0 Glucose Level 90 mg/dL (70-99) Calcium Level 9.0 mg/dL (8.5-10.1) Microbiology 06/24/17 Blood Culture - Preliminary, Resulted NO GROWTH AFTER 4 DAYS 06/24/17 Urine Culture - Final, Complete 06/24/17 Urine Culture Result 1 (CAT) - Final, Complete 06/24/17 Urine Culture Result 2 (CAT) - Final, Complete 06/24/17 Antimicrobic Susceptibility - Final, Complete Comment Review of Relevant I have reviewed the following items clovis (where applicable) has been applied. ESTELITA VO MD Jun 29, 2017 15:58
== END 2017-06-29 16:01 | DRG 698 ==
LOC: ER 13:08 → 5 NORTH 14:37
PROVIDERS: ADMIT Internal Medicine; ATTEND Internal Medicine
DX: T83.518A Infection and inflammatory reaction due to other urinary catheter, initial encounter (principal); A41.9 Sepsis, unspecified organism; R65.20 Severe sepsis without septic shock; E43 Unspecified severe protein-calorie malnutrition; G93.41 Metabolic encephalopathy; L89.329 Pressure ulcer of left buttock, unspecified stage; E87.0 Hyperosmolality and hypernatremia; N39.0 Urinary tract infection, site not specified; Z68.1 Body mass index [BMI] 19.9 or less, adult; I11.0 Hypertensive heart disease with heart failure; G20 Parkinson's disease; I50.9 Heart failure, unspecified; R13.10 Dysphagia, unspecified; Z66 Do not resuscitate; F41.9 Anxiety disorder, unspecified; F03.90 Unspecified dementia, unspecified severity, without behavioral disturbance, psychotic disturbance, mood disturbance, and anxiety; B96.20 Unspecified Escherichia coli [E. coli] as the cause of diseases classified elsewhere; E83.52 Hypercalcemia; E86.0 Dehydration; E87.6 Hypokalemia; G24.01 Drug induced subacute dyskinesia; K44.9 Diaphragmatic hernia without obstruction or gangrene; H35.00 Unspecified background retinopathy; H93.19 Tinnitus, unspecified ear; F32.9 Major depressive disorder, single episode, unspecified; Y83.9 Surgical procedure, unspecified as the cause of abnormal reaction of the patient, or of later complication, without mention of misadventure at the time of the procedure; F20.9 Schizophrenia, unspecified; J06.9 Acute upper respiratory infection, unspecified; Z74.01 Bed confinement status; Y92.89 Other specified places as the place of occurrence of the external cause; Z87.440 Personal history of urinary (tract) infections; Z90.710 Acquired absence of both cervix and uterus; Z93.1 Gastrostomy status
CPT/HCPCS: 36415; 71010; 80048; 80069; 80076; 81001; 83605; 83690; 83735; 84100; 84484; 85025; 85651; 87040; 87086; 87186; 87641; 93005; J1170; J1650; J2185; J2543; J3370; J7030; J7120; J8597; S0028; 92526; 92610; 99285-25

== ENCOUNTER 2017-06-30 10:05 | Inpatient (IN) | payer MEDICARE, BC ==
[~2017-06-30] VITALS: Ht 154.9 cm; Wt 48.6 kg
[~2017-06-30 10:05] MED LIST changes: +ACET325T9 PO; +AMOX1TAB58 PO; +DOCU-109 PO; +HYDR-2868 PO; +MECL12.52 PO; +MIRT15TA3 PO; +OXYC-323 PO; +POLY255P PO
--- NOTE | 2017-06-30 10:14 | PHYS DOC ---
Past Medical History Past Medical History: Anxiety, Depression, Heart Disease, Hypertension, Schizophrenia, Other Additional Past Medical Histor: Dysphagia-resolved, poss chf, PARKINSONS,LARGE LEFT BUTTOCK WOUND Past Surgical History: Hysterectomy, Other Additional Past Surgical Histo: Peg tube placement and removal, bilat pedal edema Alcohol Use: Rarely Drug Use: None Adult General Chief Complaint Chief Complaint: NEURO SYMPTOMS/DEFICITS [facility] HPI She is a pleasant 71-year-old female who at 7 AM this morning was noted to have a normal pupillary exam at 9:30 AM when she was reexamined by the physician she was noted to have a left blown pupil. Patient is complaining only of diplopia without pain in the eye and blurred vision with decreased visual acuity to the peripheries of just the left eye. She denies any headache, trauma to the head, change in medication or topical anesthetic placed in her eye. She denies any fevers, chills, cold symptoms, shortness of breath, abdominal pain, nausea, vomiting or other symptoms of problems speaking. He does have a history of prior CVA, Parkinson's disease and facial droop with contractures of her upper extremity's bilaterally and recently just admitted to the hospital for hypernatremia secondary to dehydration and urinary tract infection released several days ago. The patient has left buttock pain that is sharp moderate throbbing and without alleviating factors. She has a chronic sacral wound with a wound VAC that was placed in our hospital previously on admission. She has a Casas in place as well. Review of Systems Review of Systems Constitutional: Denies fever or chills [] Eyes: She has had change in visual acuity, without redness and eye pain but she complains of blurriness and diplopia at of the left eye with decreased visual acuity HENT: Denies nasal congestion or sore throat [] Respiratory: Denies cough or shortness of breath [] Cardiovascular: No additional information not addressed in HPI [] GI: Denies abdominal pain, nausea, vomiting, bloody stools or diarrhea [] : Denies dysuria or hematuria [] Musculoskeletal: Patient has chronic back pain and chronic back pain secondary to the sacral wound Integument: She has a large sacral wound Neurologic: Denies headache, focal weakness or sensory changes [] All other systems were reviewed and found to be within normal limits, except as documented in this note. Current Medications Current Medications Current Medications Medications (Trade) Dose Ordered Sig/Zacarias Start Time Stop Time Status Last Admin Dose Admin Info (Do NOT chart on this entry -- for MONITORING) 1 each PRN DAILY PRN 06/30/17 11:15 07/02/17 11:14 Iohexol (Omnipaque 300 Mg/ml) 75 ml 1X ONCE 06/30/17 11:15 06/30/17 11:16 DC 06/30/17 11:34 75 ML Tetracaine HCl (Tetracaine) 1 drop 1X ONCE 06/30/17 10:30 06/30/17 10:32 DC 06/30/17 10:30 1 DROP Allergies Allergies Allergies Coded Allergies Type Severity Reaction Last Updated Verified I S O L A T I O N *CONTACT* Allergy Unknown 06/27/17 Yes No Known Medication Allergies Allergy Unknown 06/27/17 Yes Physical Exam Physical Exam Constitutional: sHe is thin and cachectic her upper x-rays are contractured bilaterally. HENT: Normocephalic, atraumatic, bilateral external ears normal, dry mucous membranes nose normal. [] Eyes: Left pupil is dilated at 6 mm and nonreactive it is demonstrate. Visual acuities are noted in the central area of the fovea patient has decreased visual sensation to light and motion to the peripheries.EOMI . Funduscopic exam was attempted patient has significant edema to the fundus with no clear identifying escalera-red spot noted.[] Neck: Normal range of motion, no tenderness, supple, no stridor. [] Cardiovascular:Heart rate regular rhythm, no murmur [] Lungs & Thorax: Bilateral breath sounds clear to auscultation [] Abdomen: Bowel sounds normal, soft, no tenderness, no masses, no pulsatile masses. PEG tube in place, fully in place, and sites clean dry and intact [] Skin: Sacral decubitus ulcer noted wound VAC in place Back: No tenderness, no CVA tenderness. [] Extremities: No tenderness, no cyanosis, no clubbing, ROM intact, no edema. [] Neurologic: Alert and oriented X 3, patient has facial droop on the left is very obvious extract movements are intact there is no obvious lid ptosis, patient has weakness in the upper extremities bilaterally with contracture noted chronic. Psychologic: Affect normal, judgement normal, mood normal. [] Current Patient Data Vital Signs Vital Signs Date Time Temp Pulse Resp B/P (MAP) Pulse Ox O2 Delivery O2 Flow Rate FiO2 06/30/17 10:05 97.6 85 18 117/85 (96) 98 Room Air 97.6 Lab Values Laboratory Tests Test 06/30/17 10:11 06/30/17 10:50 06/30/17 11:00 06/30/17 11:22 Glucose (Fingerstick) 80 mg/dL (70-99) White Blood Count 7.5 x10^3/uL (4.0-11.0) Red Blood Count 4.38 x10^6/uL (3.50-5.40) Hemoglobin 12.8 g/dL (12.0-15.5) Hematocrit 40.0 % (36.0-47.0) Mean Corpuscular Volume 91 fL (79-100) Mean Corpuscular Hemoglobin 29 pg (25-35) Mean Corpuscular Hemoglobin Concent 32 g/dL (31-37) Red Cell Distribution Width 14.4 % (11.5-14.5) Platelet Count 231 x10^3/uL (140-400) Neutrophils (%) (Auto) 73 % (31-73) Lymphocytes (%) (Auto) 20 % (24-48) L Monocytes (%) (Auto) 5 % (0-9) Eosinophils (%) (Auto) 2 % (0-3) Basophils (%) (Auto) 1 % (0-3) Neutrophils # (Auto) 5.5 x10^3uL (1.8-7.7) Lymphocytes # (Auto) 1.5 x10^3/uL (1.0-4.8) Monocytes # (Auto) 0.4 x10^3/uL (0.0-1.1) Eosinophils # (Auto) 0.1 x10^3/uL (0.0-0.7) Basophils # (Auto) 0.1 x10^3/uL (0.0-0.2) Erythrocyte Sedimentation Rate 24 (0-25) Sodium Level 140 mmol/L (136-145) Potassium Level 4.0 mmol/L (3.5-5.1) Chloride Level 104 mmol/L (98-107) Carbon Dioxide Level 28 mmol/L (21-32) Anion Gap 8 (6-14) 10 mmol/L (6-14) Blood Urea Nitrogen 17 mg/dL (7-20) Creatinine 0.5 mg/dL (0.6-1.0) L Estimated GFR (Cockcroft-Gault) 120.9 Glucose Level 93 mg/dL (70-99) 81 mg/dL (70-99) Calcium Level 9.7 mg/dL (8.5-10.1) Magnesium Level 2.5 mg/dL (1.8-2.4) H Total Bilirubin 0.3 mg/dL (0.2-1.0) Direct Bilirubin 0.1 mg/dL (0.0-0.2) Aspartate Amino Transferase (AST) 130 U/L (15-37) H Alanine Aminotransferase (ALT) 56 U/L (14-59) Alkaline Phosphatase 91 U/L (46-116) Ammonia < 10 mcmol/L (11-34) L Creatine Kinase 50 U/L (26-192) Creatine Kinase MB (Mass) 1.8 ng/mL (0.0-3.6) Creatine Kinase MB Relative Index % (0-4) Troponin I Quantitative 0.044 ng/mL (0.000-0.055) C-Reactive Protein, Quantitative 4.0 mg/L (0-3.3) H SL-Fwc-N-Type Natriuretic Peptide 137 pg/mL (0-124) H Total Protein 6.5 g/dL (6.4-8.2) Albumin 2.7 g/dL (3.4-5.0) L Urine Collection Type Unknown Urine Color Yellow Urine Clarity Cloudy Urine pH 7.5 Urine Specific [place] 1.015 Urine Protein Negative mg/dL (NEG-TRACE) Urine Glucose (UA) Negative mg/dL (NEG) Urine Ketones (Stick) Negative mg/dL (NEG) Urine Blood Negative (NEG) Urine Nitrite Negative (NEG) Urine Bilirubin Negative (NEG) Urine Urobilinogen Dipstick 0.2 mg/dL (0.2 mg/dL) Urine Leukocyte Esterase Large (NEG) Urine RBC Occ /HPF (0-2) Urine WBC Tntc /HPF (0-4) Urine Squamous Epithelial Cells Occ /LPF Urine Bacteria Many /HPF (0-FEW) POC Hemoglobin 13.3 g/dL (12-15) POC Hematocrit 39 % (36-40) POC Sodium 138 mmol/L (135-145) POC Potassium 4.7 mmol/L (3.5-5.0) POC Chloride 103 mmol/L (98-110) POC Total CO2 32 mmol/L (23-32) POC Blood Urea Nitrogen 20 mg/dL (8-26) POC Creatinine 0.5 mg/dL (0.5-1.4) POC Ionized Calcium (Nilda) 1.19 mmol/L (1.13-1.32) Laboratory Tests 06/30/17 10:50 Laboratory Tests 06/30/17 10:50 06/30/17 11:22 EKG EKG []Patient presents with EKG timed 10:36 AM 06/30/2017 read by me demonstrates an irregularly irregular rhythm with no discernible P waves cervical QRS this is like her age or fibrillation there is QRS width of 70 which is normal, QTC of 435 which is normal. Is no ST segment T-wave inversions or 7 changes consistent with acute cardiac ischemia. There may be a Q-wave in the anterior leads with V1 and V2 may percent an old injury. Radiology/Procedures Radiology/Procedures [] [facility] [address] [place] [address] IMAGING REPORT Signed PATIENT: LAURA ARROYO ACCOUNT: [id number] : 1945 LOCATION: ER AGE: 71 SEX: F EXAM STATUS: REG ER ORD. PHYSICIAN: RIZWANA ZHENG MD REASON: blown left pupil PROCEDURE: CT CODE STROKE HEAD WO CT head without contrast 06/30/2017 Clinical indication: Code stroke, dilated left pupil. Comparison: None Technique: Multiple CT images of the head were obtained without contrast according to standard protocol. PQRS Compliance Statement: One or more of the following individualized dose reduction techniques were utilized for this examination: 1. Automated exposure control 2. Adjustment of the mA and/or kV according to patient size 3. Use of iterative reconstruction technique Findings: No acute intracranial hemorrhage or extra-axial fluid collection. There is prominence of the ventricles and subarachnoid spaces compatible with mild generalized cerebral atrophy. No midline shift. The basal cisterns are patent. There is patchy and confluent periventricular and subcortical white matter low attenuation compatible with moderate nonspecific white matter disease. Camargo-white matter interfaces are otherwise maintained. Impression: 1. No acute intracranial hemorrhage. 2. Mild generalized cerebral atrophy and moderate nonspecific white matter disease likely related to chronic small vessel ischemic disease. These results were discussed with Dr. Zheng of the emergency service by telephone at 10:25 AM 06/30/[address] Eulogio Karimi DICTATED and SIGNED BY: EULOGIO KARIMI MD DATE: 06/30/17 1019 CC: RIZWANA ZHENG MD; CHAN ROJAS MD ~ [facility] [address] [place] [address] IMAGING REPORT Signed PATIENT: LAURA ARROYO ACCOUNT: [id number] : 1945 LOCATION: ER AGE: 71 SEX: F EXAM STATUS: REG ER ORD. PHYSICIAN: RIZWANA ZHENG MD REASON: stroke activity PROCEDURE: PORTABLE CHEST 1V AP chest 06/30/2017 Clinical indication: Possible stroke. Comparison: Chest 06/24/2017 Findings: Cardiac and mediastinal silhouettes are unremarkable. There is mild left basilar atelectasis. No pleural effusion or pneumothorax. Impression: Mild basilar atelectasis without evidence of CHF or consolidating pneumonia. DICTATED and SIGNED BY: EULOGIO KARIMI MD DATE: 06/30/17 1107 CC: RIZWANA ZHENG MD; CHAN ROJAS MD ~ Course & Med Decision Making Course & Med Decision Making Pertinent Labs and Imaging studies reviewed. (See chart for details) []Radiology department called with results of CAT scan at 10:24 AM demonstrate no occult injury no intracranial hemorrhage, no new stroke noted. Differential diagnosis at this time includes third nerve palsy from intraocular stroke, arterial and venous thrombi embolism to the optic nerve Nerve, giant cell arteritis, vasculitis, temporal arteritis, psychiatric medications, topical medications causing mydriasis, glaucoma, iritis, uveitis, other ocular infections causing increased anterior chamber pressure. Direct trauma. This point we will apply tetracaine and test for intraocular pressure Attempted several times to instill tetracaine in the patient's eye at approximately 10:35 AM patient was further left in exam first and turgor pressure measured was 42, next was 28 which has a discrepancy I believe it's because patient was straining against this. Globes are soft Timetable is patient was last seen normal at approximate 7 AM with no BM pupil. This is a painless loss of vision with Central vision bearing although the periphery is noted to be loss of motion and sharp vision at the periphery. He first noted to have abnormal pupil at approximately 9:30 AM unfortunately on her arrival at 10 AM patient was just outside the window for TPA. Because of patient's only complaint is visual acuity change in that left eye this may be an embolic event. Differential diagnosis included as above stated. After patient's head CT was returned and x-rays show was completed patient's only finding consistent with stroke was vision changes in the left eye only history is no other identifiable new weakness or stroke pattern. Because of believe this is no central artery occlusion I do not believe patient is a candidate for TPA and the stroke was called off. I will contact ophthalmology consultation as a complete CT angios the head and ultrasound of the carotid arteries and continue my workup of possible arteritis. Again on reevaluation of Globe pressures patient was not able to tolerate the procedure I have a call out to ophthalmology Data Systems Analyst note: Ophthalmology services Data Systems Analyst called at of the service: 11:55 AM Consult called back at Discussed the case I presented and they agreed with admission. Time of acceptance Data Systems Analyst note: Internal medicine services Data Systems Analyst called at of the service called at 12:10 pm Consult called back at 12:11 pm Rosa Isela Quispe Discussed the case I presented and they agreed with admission. Time of acceptance 12:12 pm and ultrasound of the carotid Dopplers,, CT angios the head , CRP and ESR to ensure that this is not giant cell arteritis [place] arteritis as a cause of the central retinal artery occlusion. Patient's sedimentation rate is normal patient's CRP is mildly elevated at 4. Patient's urinalysis demonstrates significant findings for UTI. We'll treat with IV antibiotics Dragon Disclaimer Dragon Disclaimer This electronic medical record was generated, in whole or in part, using a voice recognition dictation system. Departure Departure Impression: Primary Impression: Central retinal artery occlusion of left eye Disposition: ADMITTED INPATIENT Admitting Physician: Other Condition: GUARDED Referrals: VIANEY BAEZA FORESTRY ENGINEER (PCP) RIZWANA ZHENG MD Jun 30, 2017 10:14
[2017-06-30] MEDS ORDERED: TETRACAINE 0.5% OPHTH SOLUTION 4ML BOTTLE. OS ONE (10:30)
--- NOTE | 2017-06-30 10:30 | RAD ---
CT head without contrast 06/30/2017 Clinical indication: Code stroke, dilated left pupil. Comparison: None Technique: Multiple CT images of the head were obtained without contrast according to standard protocol. PQRS Compliance Statement: One or more of the following individualized dose reduction techniques were utilized for this examination: 1. Automated exposure control 2. Adjustment of the mA and/or kV according to patient size 3. Use of iterative reconstruction technique Findings: No acute intracranial hemorrhage or extra-axial fluid collection. There is prominence of the ventricles and subarachnoid spaces compatible with mild generalized cerebral atrophy. No midline shift. The basal cisterns are patent. There is patchy and confluent periventricular and subcortical white matter low attenuation compatible with moderate nonspecific white matter disease. Camargo-white matter interfaces are otherwise maintained. Impression: 1. No acute intracranial hemorrhage. 2. Mild generalized cerebral atrophy and moderate nonspecific white matter disease likely related to chronic small vessel ischemic disease. These results were discussed with Dr. Veloz of the emergency service by telephone at 10:25 AM 06/30/[address] Juve Karimi
--- NOTE | 2017-06-30 10:54 | EKG ---
[facility] [address] [place] [address] Test Date: 2017-06-30 Test Time: 10:36:33 Pat Name: LAURA ARROYO Department: Room: Gender: F Repair Miller: : 1945 Requested By: RIZWANA ZHENG Order Number: [id number] Reading MD: Israel Borrego MD Measurements Intervals [place] Rate: 93 P: [place]: QRS: -47 QRSD: 70 T: 34 QT: 348 QTc: 435 Interpretive Statements ATRIAL FIBRILLATION WITH CONTROLLED VENTRICULAR RESPONSE NON-SPECIFIC ST/T CHANGES Electronically Signed On 06-30-2017 16:07:25 [employer]IEF by Israel Borrego MD
[2017-06-30 11:12] LABS: BASO # 0.1 x10^3/uL (0.0-0.2); BASO % 1 % (0-3); EOS % 2 % (0-3); HEMOGLOBIN 12.8 g/dL (12.0-15.5); LYMPH # 1.5 x10^3/uL (1.0-4.8); LYMPH % 20 % (24-48); MEAN CORPUSCULAR HEMOGLOBIN 29 pg (25-35); MEAN CORPUSCULAR HGB CONC 32 g/dL (31-37); MEAN CORPUSCULAR VOLUME 91 fL (79-100); MONO % 5 % (0-9); NEUT % 73 % (31-73); PLATELET COUNT 231 x10^3/uL (140-400); RED BLOOD COUNT 4.38 x10^6/uL (3.50-5.40); RED CELL DISTRIBUTION WIDTH 14.4 % (11.5-14.5); WHITE BLOOD COUNT 7.5 x10^3/uL (4.0-11.0)
--- NOTE | 2017-06-30 11:13 | RAD ---
AP chest 06/30/2017 Clinical indication: Possible stroke. Comparison: Chest 06/24/2017 Findings: Cardiac and mediastinal silhouettes are unremarkable. There is mild left basilar atelectasis. No pleural effusion or pneumothorax. Impression: Mild basilar atelectasis without evidence of CHF or consolidating pneumonia.
[2017-06-30 11:14] LABS: BILIRUBIN,URINE NEGATIVE (NEG); GLUCOSE,URINE NEGATIVE (NEG); NITRITE,URINE NEGATIVE (NEG); PH,URINE 7.5; PROTEIN,URINE NEGATIVE (NEG-TRACE); UROBILINOGEN,URINE 0.2 mg/dL (0.2 mg/dL)
[2017-06-30] MEDS ORDERED: IOHEXOL 300 MG/ML 100ML VIAL. IV ONE (11:15)
[2017-06-30] MEDS ORDERED: CONTRAST GIVEN MC PRN (11:15)
[2017-06-30 11:18] LABS: SQUAMOUS EPITHELIAL CELL,UR OCC /LPF
[2017-06-30 11:19] LABS: BACTERIA,URINE MANY /HPF (0-FEW); RBC,URINE OCC /HPF (0-2); WBC,URINE TNTC /HPF (0-4)
[2017-06-30 11:27] LABS: POTASSIUM ISTAT 4.7 mmol/L (3.5-5.0)
[2017-06-30 11:31] LABS: CALCIUM 9.7 mg/dL (8.5-10.1); CREATININE 0.5 mg/dL (0.6-1.0); GFR 120.9
[2017-06-30 11:33] LABS: ALBUMIN 2.7 g/dL (3.4-5.0); DIRECT BILIRUBIN 0.1 mg/dL (0.0-0.2); MAGNESIUM 2.5 mg/dL (1.8-2.4); TOTAL BILIRUBIN 0.3 mg/dL (0.2-1.0); TOTAL PROTEIN 6.5 g/dL (6.4-8.2)
[2017-06-30 11:50] LABS: CKMB MASS 1.8 ng/mL (0.0-3.6); CREATINE KINASE 50 U/L (26-192)
[2017-06-30] MEDS: IV NORMAL SALINE 1000ML BAG 1,000 ML IV SCH (12:14)
[2017-06-30] MEDS ORDERED: ACETAMINOPHEN 325 MG TABLET. PO PRN (12:15)
[2017-06-30] MEDS ORDERED: ONDANSETRON PF 4 MG/2 ML VIAL. IV PRN (12:15)
--- NOTE | 2017-06-30 12:42 | RAD ---
CTA of the head and neck with contrast, 06/30/2017: History: CVA, dilated left pupil Multidetector CT imaging was performed following an IV bolus injection of iodinated contrast material. Multiplanar reconstructions were produced including MIP images and 3-D volume rendered reconstructions. The origins of the cervicocephalic arteries from the aortic arch are widely patent. The left common carotid artery is widely patent. There is mild calcific plaquing at the left carotid bifurcation causing only minimal narrowing at the origin of left internal carotid artery. The left internal carotid artery in the upper neck is quite tortuous. It is widely patent up through the level of the [place]. The left anterior cerebral and middle cerebral arteries and their major branches are unremarkable. The right common carotid artery is widely patent. There is moderate calcific plaquing at the right carotid bifurcation with mild narrowing of the right internal carotid artery origin. The right internal carotid artery in the upper neck is tortuous. There is minimal calcific plaquing involving its cavernous segment without significant stenosis. The right anterior cerebral and middle cerebral arteries and their major branches are unremarkable. No significant stenosis or occlusion is evident. Both vertebral arteries in the neck are widely patent. The basilar artery is unremarkable. The posterior cerebral arteries and their major branches show no abnormality. IMPRESSION: 1. Mild calcific plaquing at the carotid bifurcations with only mild associated luminal narrowing. 2. No evidence of significant intracranial arterial stenosis or occlusion.
[2017-06-30] MEDS ORDERED: CIPROFLOXACIN 400MG PREMIX 200 ML IV ONE (13:00)
[2017-06-30] MEDS ORDERED: CIPROFLOXACIN 400MG PREMIX 200 ML IV SCH (13:30)
[2017-06-30 14:00] VITALS: BP 137/72
[2017-06-30 15:00] VITALS: BP 129/78
[2017-06-30] MEDS: ACETAMINOPHEN 325 MG TABLET. PO SCH ×2 (16:59→21:00)
[2017-06-30] MEDS: oxyCODONE/APAP 5/325 1 TAB TABLET PO SCH ×2 (17:00→21:17)
[2017-06-30] MEDS: MECLIZINE HCL 12.5 MG TABLET. PO SCH ×2 (17:00→21:17)
--- NOTE | 2017-06-30 17:00 | HP ---
ADMIT DATE: 06/30/2017 CHIEF COMPLAINT: Acute onset left eye blindness. HISTORY OF PRESENT ILLNESS: The patient is a 71-year-old old correction patient, known to our service with recent admission for sepsis due to complicated UTI, with discharge just yesterday. The patient was noted this morning to have a dilated pupil on the left, unresponsive to light. The patient denied any headaches, any fevers, nausea or vomiting. She admitted to blurry vision somewhat after prompting. The patient was therefore transferred back to the Emergency Room for further evaluation. PAST MEDICAL HISTORY: Heart disease, hypertension, CVA, Parkinson's. History of dysphagia, status post PEG tube placement and removal, anxiety/depression, schizophrenia. She is bedbound with contractures in all 4 extremities, large decubitus ulcer, treated with wound VAC at this time. FAMILY HISTORY: Hypertension. SOCIAL HISTORY: longterm. No ongoing toxic habits. ALLERGIES: No known drug allergies. MEDICATIONS: MAR reconciled with home medications. REVIEW OF SYSTEMS: The patient actually has no complaints at this time. She was unaware of visual issues until pointed out by staff. PHYSICAL EXAMINATION: VITAL SIGNS: From today show blood pressure of 137/72, heart rate of 65, respiratory rate at 16. She is afebrile. GENERAL: This is a 71-year-old woman, alert and oriented, in no acute distress. HEENT: Shows no scleral icterus. Left pupil is approximately 5 mm, right pupil 3. NECK: Supple. LUNGS: Clear. HEART: Regular rate and rhythm. ABDOMEN: Has positive bowel sounds, soft, nontender. EXTREMITIES: Show no edema. SKIN: Warm, soft and dry without any rash. Decubitus ulcer covered. NEUROLOGIC: Reveals blindness over her left eye, normal acuity on the right. LABORATORY DATA: CBC with a WBC of 7.5, hemoglobin 12.8, platelets of 231. Chemistries with a BUN and creatinine of 20 and 0.5, normal electrolytes. Urine with TNTC wbc's and many bacteria. IMAGING: CTA of head and neck reveals mild calcific plaquing at the right carotid bifurcation, no evidence of significant intracranial arterial stenosis or occlusion. ASSESSMENT AND PLAN: The patient is a 71-year-old woman with history of heart as well as ischemic brain disease who presents with acute onset left eye blindness. Suspicion for retinal artery occlusion is high. Other etiologies, however, have to be evaluated as well. Ophthalmology and Neurology have been consulted. For unknown reasons, the patient has not been on aspirin in the recent past. This has been started. We will continue all her other home medications. She is not, however, on a statin. We will obtain results of a lipid profile and consider statin use. MADELEINE BOND MD DR: UR/nts JOB#: [id number] / [id number] CHAN Durbin MD MTDD
--- NOTE | 2017-06-30 18:54 | PDOC2 ---
NEUROLOGY CONSULT Date of Admission Date of Admission DATE: 06/30/17 TIME: 18:50 Reason for Consult Reason for Consult: Left pupil dilated x 1 day. Left eye vision loss, glaucoma? Cataract/ PD Dementia. HTN CHF Rigidity. RECOMMENDATIONS/PLAN: Brain MRI w/wo contrast. Continue Sinemet 25/100 mg qid. Treat medical diseases. Consulted Ophthalmology. OT/PT. Past Medical History Cardiovascular: CHF, HTN Pulmonary: No pertinent hx CENTRAL NERVOUS SYSTEM: Other Hepatobiliary: No pertinent hx Psych: Anxiety, Addictions, Schizophrenia Musculoskeletal: low back pain Renal/: Other Past Surgical History Hysterectomy, Other (wound vac decub ) Family History No Significant Social History Smoke: No ALCOHOL: none Drugs: None ALLERGY: Reviewed. MEDICATIONS: Refer to MAR REVIEW OF SYSTEMS: Constitutional: Dementia features. Head: No traumatic brain or head injury. Skin: No edema, or rash. Ear: No infection. Eyes: No vision loss, or diplopia. Nose: No bleeding or purulent discharges. Hearing: Hearing loss. Neck: No injury. Breast: No history of cancer, masses, or discharges. Cardiac: HTN Pulmonary: No COPD. GI: No GI Ulcer, GI bleeding. Urinary/genital: UTI. Endocrine: No cousin face, craniofacial dysmorphism, polydactyly. Skeletomuscular: Generalized weakness. Neurological: see HP. Psychiatric: Denies drug use/abuse. Otherwise, not [id number] review of systems. PHYSICAL EXAMINATION: General appearance in subacute distress. HEENT: Normocephalic and nontraumatic. Eyes, nose, ears, and throat are unremarkable. Hearing decrease. Neck is supple. No lymphadenopathy. No Crepitus. Cardiovascular: S1, S2, regular rate and rhythm. Pulmonary: Clear to auscultation bilaterally. Abdomen: Bowel sounds are positive. Abdomen is soft, nontender, and nondistended. Extremities: No rash, lesions, or edema. No restriction of range of motion NEUROLOGICAL EXAMINATION: Awake. Able to understand a few questions. Not oriented to time, place and person. PERRL. EOMI. CN: no focal findings. Muscle tone: increased in all extremities with joints deformities. Muscle strength: 4- DTR: 2- Plantar reflex: Neutral response bilaterally Gait: unable to walk. Sensory exam: no abnormal findings. No acute cerebellar signs elicited. F-T-N test not performed due to difficult to move hands. Current Medications Current Medications Current Medications Tetracaine HCl (Tetracaine) 1 drop 1X ONCE OS Last administered on 06/30/17 10:30; Start 06/30/17 at 10:30; Stop 06/30/17 at 10:32; Status DC Iohexol (Omnipaque 300 Mg/ml) 75 ml 1X ONCE IV Last administered on 11:34; Start 06/30/17 at 11:15; Stop 06/30/17 at 11:16; Status DC Info (Do NOT chart on this entry -- for MONITORING) 1 each PRN DAILY PRN MC SEE COMMENTS; Start 06/30/17 at 11:15; Stop 07/02/17 at 11:14 Ondansetron HCl (Zofran) 4 mg PRN Q8HRS PRN IV NAUSEA/VOMITING; Start at 12:15; Stop 07/01/17 at 12:14 Sodium Chloride 1,000 ml @ 80 mls/hr [id number] IV Last administered on 12:14; Start 06/30/17 at 12:14; Stop 07/01/17 at 12:13 Acetaminophen (Tylenol) 650 mg PRN Q4HRS PRN PO FEVER; Start 06/30/17 at 12:15 ; Stop 07/01/17 at 12:14 Ciprofloxacin/ Dextrose 200 ml @ 200 mls/hr Q12HR IV ; Start 06/30/17 at 13:30 ; Status Cancel Ciprofloxacin/ Dextrose 200 ml @ 200 mls/hr 1X ONCE IV Last administered on 06/30/17 13:00; Start 06/30/17 at 13:00; Stop 06/30/17 at 13:59; Status DC Ciprofloxacin/ Dextrose 200 ml @ 200 mls/hr Q12HR IV ; Start 06/30/17 at 21:00 Acetaminophen (Tylenol) 325 mg QID PO Last administered on 06/30/17 16:59; Start 06/30/17 at 17:00 Carbidopa/Levodopa (Sinemet 25/100) 1 tab BID PO ; Start 06/30/17 at 21:00 Vitamin D (Vitamin D3) 1,000 unit DAILY PO ; Start 07/01/17 at 09:00 Docusate Sodium (Colace) 100 mg BID PO ; Start 06/30/17 at 21:00 Furosemide (Lasix) 20 mg DAILY PO ; Start 07/01/17 at 09:00 Hydralazine HCl (Apresoline) 25 mg BID PO ; Start 06/30/17 at 21:00 Meclizine HCl (Antivert) 12.5 mg QID PO Last administered on 06/30/17t 17:00; Start 06/30/17 at 17:00 Mirtazapine (Remeron) 7.5 mg QHS PO ; Start 06/30/17 at 21:00 Olanzapine (ZyPREXA) 5 mg DAILY PO ; Start 07/01/17 at 09:00 Oxycodone/ Acetaminophen (Percocet 5/325) 1 tab QID PO ; Start 06/30/17 at 17: 00 Polyethylene Glycol (miraLAX PACKET) 17 gm DAILY PO ; Start 07/01/17 at 09:00 Potassium Chloride (Klor-Con) 10 meq DAILYWBKFT PO ; Start 07/01/17 at 08:00 Aspirin (Deana Aspirin) 325 mg DAILYWBKFT PO ; Start 07/01/17 at 08:00 Active Scripts Active Hydralazine Hcl 25 Mg Tablet 25 Mg PO BID 30 Days Reported Potassium Chloride 10 Meq Capsule.er 10 Meq PO DAILY Percocet 5-325 Mg Tablet (Oxycodone/Acetaminophen) 1 Each Tablet 1 Tab PO QID Mirtazapine 15 Mg Tablet 0.5 Tab PO QHS Polyethylene Glycol 3350 255 Gm Powder 17 Gm PO DAILY Meclizine Hcl 12.5 Mg Tablet 1 Tab PO QID Colace (Docusate Sodium) 100 Mg Capsule 1 Cap PO BID Tylenol (Acetaminophen) 325 Mg Tablet 325 Mg PO QID Multi-Day Plus Iron Tablet (Multivitamin/Iron/Folic Acid) 1 Each Tablet 1 Each PO Carbidopa-Levodopa 25-100 Tab (Carbidopa/Levodopa) 1 Each Tablet 1 Each PO BID Vitamin D3 (Cholecalciferol (Vitamin D3)) 1,000 Unit Tablet 1,000 Unit PO DAILY Furosemide 20 Mg Tablet 20 Mg PO DAILY Olanzapine 5 Mg Tablet 5 Mg PO DAILY Allergies Allergies: Coded Allergies: I S O L A T I O N *CONTACT* (Verified Allergy, Unknown, 06/27/17) MDRO (R) Klebsiella pneumoniae No Known Medication Allergies (Verified Allergy, Unknown, 06/27/17) Vitals VITALS Vital Signs Date Time Temp Pulse Resp B/P (MAP) Pulse Ox O2 Delivery O2 Flow Rate FiO2 06/30/17 17:00 Room Air 06/30/17 15:00 97.5 64 16 129/78 (95) 97 97.5 Labs Labs Laboratory Tests Test 06/30/17 10:11 06/30/17 10:50 06/30/17 11:00 06/30/17 11:22 Glucose (Fingerstick) 80 mg/dL (70-99) White Blood Count 7.5 x10^3/uL (4.0-11.0) Red Blood Count 4.38 x10^6/uL (3.50-5.40) Hemoglobin 12.8 g/dL (12.0-15.5) Hematocrit 40.0 % (36.0-47.0) Mean Corpuscular Volume 91 fL (79-100) Mean Corpuscular Hemoglobin 29 pg (25-35) Mean Corpuscular Hemoglobin Concent 32 g/dL (31-37) Red Cell Distribution Width 14.4 % (11.5-14.5) Platelet Count 231 x10^3/uL (140-400) Neutrophils (%) (Auto) 73 % (31-73) Lymphocytes (%) (Auto) 20 % (24-48) Monocytes (%) (Auto) 5 % (0-9) Eosinophils (%) (Auto) 2 % (0-3) Basophils (%) (Auto) 1 % (0-3) Neutrophils # (Auto) 5.5 x10^3uL (1.8-7.7) Lymphocytes # (Auto) 1.5 x10^3/uL (1.0-4.8) Monocytes # (Auto) 0.4 x10^3/uL (0.0-1.1) Eosinophils # (Auto) 0.1 x10^3/uL (0.0-0.7) Basophils # (Auto) 0.1 x10^3/uL (0.0-0.2) Erythrocyte Sedimentation Rate 24 (0-25) Sodium Level 140 mmol/L (136-145) Potassium Level 4.0 mmol/L (3.5-5.1) Chloride Level 104 mmol/L (98-107) Carbon Dioxide Level 28 mmol/L (21-32) Anion Gap 8 (6-14) 10 mmol/L (6-14) Blood Urea Nitrogen 17 mg/dL (7-20) Creatinine 0.5 mg/dL (0.6-1.0) Estimated GFR (Cockcroft-Gault) 120.9 Glucose Level 93 mg/dL (70-99) 81 mg/dL (70-99) Calcium Level 9.7 mg/dL (8.5-10.1) Magnesium Level 2.5 mg/dL (1.8-2.4) Total Bilirubin 0.3 mg/dL (0.2-1.0) Direct Bilirubin 0.1 mg/dL (0.0-0.2) Aspartate Amino Transf (AST/SGOT) 130 U/L (15-37) Alanine Aminotransferase (ALT/SGPT) 56 U/L (14-59) Alkaline Phosphatase 91 U/L (46-116) Ammonia < 10 mcmol/L (11-34) Creatine Kinase 50 U/L (26-192) Creatine Kinase MB (Mass) 1.8 ng/mL (0.0-3.6) Creatine Kinase MB Relative Index % (0-4) Troponin I Quantitative 0.044 ng/mL (0.000-0.055) C-Reactive Protein, Quantitative 4.0 mg/L (0-3.3) HX-Bjl-U-Type Natriuretic Peptide 137 pg/mL (0-124) Total Protein 6.5 g/dL (6.4-8.2) Albumin 2.7 g/dL (3.4-5.0) Thyroid Stimulating Hormone (TSH) 1.495 uIU/mL (0.358-3.74) Urine Collection Type Unknown Urine Color Yellow Urine Clarity Cloudy Urine pH 7.5 Urine Specific [place] 1.015 Urine Protein Negative mg/dL (NEG-TRACE) Urine Glucose (UA) Negative mg/dL (NEG) Urine Ketones (Stick) Negative mg/dL (NEG) Urine Blood Negative (NEG) Urine Nitrite Negative (NEG) Urine Bilirubin Negative (NEG) Urine Urobilinogen Dipstick 0.2 mg/dL (0.2 mg/dL) Urine Leukocyte Esterase Large (NEG) Urine RBC Occ /HPF (0-2) Urine WBC Tntc /HPF (0-4) Urine Squamous Epithelial Cells Occ /LPF Urine Bacteria Many /HPF (0-FEW) Bedside Hemoglobin 13.3 g/dL (12-15) Bedside Hematocrit 39 % (36-40) Bedside Sodium 138 mmol/L (135-145) Bedside Potassium 4.7 mmol/L (3.5-5.0) Bedside Chloride 103 mmol/L (98-110) Bedside Total CO2 32 mmol/L (23-32) Bedside Blood Urea Nitrogen 20 mg/dL (8-26) Bedside Creatinine 0.5 mg/dL (0.5-1.4) Bedside Ionized Calcium (Nilda) 1.19 mmol/L (1.13-1.32) Laboratory Tests Test 06/30/17 10:11 06/30/17 10:50 06/30/17 11:00 06/30/17 11:22 Glucose (Fingerstick) 80 mg/dL (70-99) White Blood Count 7.5 x10^3/uL (4.0-11.0) Red Blood Count 4.38 x10^6/uL (3.50-5.40) Hemoglobin 12.8 g/dL (12.0-15.5) Hematocrit 40.0 % (36.0-47.0) Mean Corpuscular Volume 91 fL (79-100) Mean Corpuscular Hemoglobin 29 pg (25-35) Mean Corpuscular Hemoglobin Concent 32 g/dL (31-37) Red Cell Distribution Width 14.4 % (11.5-14.5) Platelet Count 231 x10^3/uL (140-400) Neutrophils (%) (Auto) 73 % (31-73) Lymphocytes (%) (Auto) 20 % (24-48) Monocytes (%) (Auto) 5 % (0-9) Eosinophils (%) (Auto) 2 % (0-3) Basophils (%) (Auto) 1 % (0-3) Neutrophils # (Auto) 5.5 x10^3uL (1.8-7.7) Lymphocytes # (Auto) 1.5 x10^3/uL (1.0-4.8) Monocytes # (Auto) 0.4 x10^3/uL (0.0-1.1) Eosinophils # (Auto) 0.1 x10^3/uL (0.0-0.7) Basophils # (Auto) 0.1 x10^3/uL (0.0-0.2) Erythrocyte Sedimentation Rate 24 (0-25) Sodium Level 140 mmol/L (136-145) Potassium Level 4.0 mmol/L (3.5-5.1) Chloride Level 104 mmol/L (98-107) Carbon Dioxide Level 28 mmol/L (21-32) Anion Gap 8 (6-14) 10 mmol/L (6-14) Blood Urea Nitrogen 17 mg/dL (7-20) Creatinine 0.5 mg/dL (0.6-1.0) Estimated GFR (Cockcroft-Gault) 120.9 Glucose Level 93 mg/dL (70-99) 81 mg/dL (70-99) Calcium Level 9.7 mg/dL (8.5-10.1) Magnesium Level 2.5 mg/dL (1.8-2.4) Total Bilirubin 0.3 mg/dL (0.2-1.0) Direct Bilirubin 0.1 mg/dL (0.0-0.2) Aspartate Amino Transf (AST/SGOT) 130 U/L (15-37) Alanine Aminotransferase (ALT/SGPT) 56 U/L (14-59) Alkaline Phosphatase 91 U/L (46-116) Ammonia < 10 mcmol/L (11-34) Creatine Kinase 50 U/L (26-192) Creatine Kinase MB (Mass) 1.8 ng/mL (0.0-3.6) Creatine Kinase MB Relative Index % (0-4) Troponin I Quantitative 0.044 ng/mL (0.000-0.055) C-Reactive Protein, Quantitative 4.0 mg/L (0-3.3) OA-Xtw-P-Type Natriuretic Peptide 137 pg/mL (0-124) Total Protein 6.5 g/dL (6.4-8.2) Albumin 2.7 g/dL (3.4-5.0) Thyroid Stimulating Hormone (TSH) 1.495 uIU/mL (0.358-3.74) Urine Collection Type Unknown Urine Color Yellow Urine Clarity Cloudy Urine pH 7.5 Urine Specific [place] 1.015 Urine Protein Negative mg/dL (NEG-TRACE) Urine Glucose (UA) Negative mg/dL (NEG) Urine Ketones (Stick) Negative mg/dL (NEG) Urine Blood Negative (NEG) Urine Nitrite Negative (NEG) Urine Bilirubin Negative (NEG) Urine Urobilinogen Dipstick 0.2 mg/dL (0.2 mg/dL) Urine Leukocyte Esterase Large (NEG) Urine RBC Occ /HPF (0-2) Urine WBC Tntc /HPF (0-4) Urine Squamous Epithelial Cells Occ /LPF Urine Bacteria Many /HPF (0-FEW) Bedside Hemoglobin 13.3 g/dL (12-15) Bedside Hematocrit 39 % (36-40) Bedside Sodium 138 mmol/L (135-145) Bedside Potassium 4.7 mmol/L (3.5-5.0) Bedside Chloride 103 mmol/L (98-110) Bedside Total CO2 32 mmol/L (23-32) Bedside Blood Urea Nitrogen 20 mg/dL (8-26) Bedside Creatinine 0.5 mg/dL (0.5-1.4) Bedside Ionized Calcium (Nilda) 1.19 mmol/L (1.13-1.32) ESTELITA VO MD Jun 30, 2017 18:54
[2017-06-30 19:20] VITALS: BP 126/75
[2017-06-30] MEDS: CARBIDOPA/LEVODOPA 25/100MG TABLET PO SCH (21:17)
[2017-06-30] MEDS: DOCUSATE SODIUM 100 MG CAPSULE. PO SCH (21:17)
[2017-06-30] MEDS: CIPROFLOXACIN 400MG PREMIX 200 ML IV SCH (21:22)
[2017-06-30] MEDS: MIRTAZAPINE 7.5 MG TABLET. PO SCH (21:22)
[2017-06-30] MEDS: hydrALAZINE 25 MG TABLET PO SCH (21:24)
[2017-06-30 22:59] VITALS: BP 128/81
[2017-07-01 03:10] VITALS: BP 111/58
[2017-07-01] MEDS: IV NORMAL SALINE 1000ML BAG 1,000 ML IV SCH (04:11)
[2017-07-01 07:00] VITALS: BP 133/65
[2017-07-01] MEDS: POLYETHYLENE GLYCOL 3350 17 GM PACKET. PO SCH (09:00)
[2017-07-01] MEDS: ACETAMINOPHEN 325 MG TABLET. PO SCH ×4 (09:00→21:00)
[2017-07-01] MEDS: DOCUSATE SODIUM 100 MG CAPSULE. PO SCH ×2 (09:00→21:30)
[2017-07-01] MEDS: hydrALAZINE 25 MG TABLET PO SCH ×2 (09:00→21:30)
--- NOTE | 2017-07-01 09:05 | CONS ---
DATE OF CONSULTATION: 06/30/2017 She is in room 432. SUBJECTIVE FINDINGS: This patient is a 71-year-old white female who was admitted through the Emergency Room. She has chronic debilitating Parkinson disease apparently. The ER physician found the vision to be poor and with a very dilated pupil on the left eye. He thought that there may be a possibility of a central retinal artery occlusion. Evidently, a CT scan with contrast was done, which showed no mass, lesion of the brain. I was consulted to further evaluate the dilated left pupil. The patient is bedridden from her Parkinson's, and I was only able to do a bedside exam. She is a marginal historian. She feels like the vision has been unchanged in this eye for at least a month. She seems to feel that she can see with the left eye, although I think she probably does not. As I stated earlier, my bedside exam is quite limited without the use of a slit lamp and other devices. OBJECTIVE FINDINGS: As far as I can tell, the patient has a pretty good vision with the right eye and was able to count fingers pretty easily. Left eye vision seemed to be quite poor to me. I was questioning whether she could see much of anything at all. On external exam, the left pupil was probably 6-7 mm in size compared to 3-4 mm size pupil on the right. The cornea was clear and normal on the right and somewhat cloudy with a dull reflex on the left. I could tell that there was a cataract present in the left eye with the ophthalmoscope exam. ASSESSMENT: It is very difficult to figure out exactly what is going on with this left eye with just a bedside exam without instrumentation. This is not a retinal artery occlusion as that does not cause a unilateral dilated pupil. 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 This would explain the anisocoria and also cause a significant afferent relative pupillary defect of the left eye, which she does have, and I did not mention above. PLAN: The patient is not in any discomfort, and I think this is a chronic process. She may need to be on ocular antihypertensives, but I am not sure. I would need to do further examination with a slit lamp to give a better opinion. This is not a neurological problem,however, and she just needs to have a more extensive evaluation in an office setting with the proper instrumentation. K KRYSTYNA GOMEZ MD DR: YADIRA/leigha JOB#: [id number] / [id number] [place]
[2017-07-01] MEDS: FUROSEMIDE 20 MG TABLET PO SCH (09:08)
[2017-07-01] MEDS: MECLIZINE HCL 12.5 MG TABLET. PO SCH ×4 (09:08→21:30)
[2017-07-01] MEDS: oxyCODONE/APAP 5/325 1 TAB TABLET PO SCH ×4 (09:08→21:31)
[2017-07-01] MEDS: CHOLECALCIFEROL (VITAMIN D3) 1,000 UNIT TABLET PO SCH (09:08)
[2017-07-01] MEDS: POTASSIUM CHLORIDE 10 MEQ TABLET.ER. PO SCH (09:09)
[2017-07-01] MEDS: CARBIDOPA/LEVODOPA 25/100MG TABLET PO SCH ×2 (09:09→21:31)
[2017-07-01] MEDS: CIPROFLOXACIN 400MG PREMIX 200 ML IV SCH (09:10)
[2017-07-01] MEDS: ASPIRIN 325 MG TABLET PO SCH (09:18)
[2017-07-01] MEDS: OLANZapine 5 MG TABLET PO SCH (09:18)
[2017-07-01] MEDS ORDERED: GADOBUTROL 7.5 MMOL/7.5 ML VIAL IV ONE (10:45)
--- NOTE | 2017-07-01 12:17 | RAD ---
MRI Brain with and without contrast History: Diplopia Technique: Multiplanar, multi sequential pre and postcontrast MR imaging was performed of the brain. Contrast: 4.5 cc Gadavist Comparison: None Findings: There is some motion degradation. There is no evidence of recent infarct or cytotoxic edema. There is mild lateral ventriculomegaly although the third and fourth ventricle not dilated. There is mild supratentorial atrophy.There is no significant midline shift, intraaxial mass effect, or focal abnormal extra-axial fluid collection. There is [id number] T2 and FLAIR hyperintense signal abnormality of the supratentorial parenchyma bilaterally greatest of the frontal parietal white matter, some involvement of the thalami and basal ganglia. There is also moderate T2 and FLAIR hyperintense signal abnormality of the digna. There is no nodular parenchymal or leptomeningeal enhancement. There is preservation of the major intracranial flow-voids at the skull base. The cerebellar tonsils are normal in location. There is no significant abnormality of the pineal gland or pituitary gland. There is patchy mild ethmoid air cell and left maxillary sinus mucosal thickening. There is [id number] patchy fluid and thickening of the right mastoid air cells. There is preserved marrow signal of the clivus. Globes are symmetric in appearance. There is small 0.5 cm cyst of the left posterior nasopharynx. Impression: 1. There is no evidence of recent infarct or abnormal intracranial enhancement. 2. There is lateral ventriculomegaly probably due to atrophy, third ventricle not significantly dilated. T2 and FLAIR hyperintense signal abnormality of the digna and the supratentorial parenchyma is nonspecific, most commonly due to chronic microvascular ischemic disease in a patient of this age. Electronically signed by: Rizwan Connors MD (07/01/2017 12:14 PM) [email or web address]
--- NOTE | 2017-07-01 13:57 | PDOC ---
PROGRESS NOTES Assessment Assessment Left pupil dilated x 1 day before admission, non neurological etiology. Left eye vision loss, glaucoma? Cataract? PD Dementia. HTN CHF Rigidity. No evidence of acute CVA or brain tumor. RECOMMENDATIONS/PLAN: Continue ASA daily. Continue Sinemet 25/100 mg qid. Treat medical diseases. Consulted Ophthalmology. OT/PT. Past Medical History Cardiovascular: CHF, HTN Pulmonary: No pertinent hx CENTRAL NERVOUS SYSTEM: Other Hepatobiliary: No pertinent hx Psych: Anxiety, Addictions, Schizophrenia Musculoskeletal: low back pain Renal/: Other Past Surgical History Hysterectomy, Other (wound vac decub ) Family History No Significant Social History Smoke: No ALCOHOL: none Drugs: None ALLERGY: Reviewed. MEDICATIONS: Refer to MAR REVIEW OF SYSTEMS: Constitutional: Dementia features. Head: No traumatic brain or head injury. Skin: No edema, or rash. Ear: No infection. Eyes: No vision loss, or diplopia. Nose: No bleeding or purulent discharges. Hearing: Hearing loss. Neck: No injury. Breast: No history of cancer, masses, or discharges. Cardiac: HTN Pulmonary: No COPD. GI: No GI Ulcer, GI bleeding. Urinary/genital: UTI. Endocrine: No cousin face, craniofacial dysmorphism, polydactyly. Skeletomuscular: Generalized weakness. Neurological: see HP. Psychiatric: Denies drug use/abuse. Otherwise, not [id number] review of systems. PHYSICAL EXAMINATION: General appearance in no acute distress. HEENT: Normocephalic and nontraumatic. Eyes, nose, ears, and throat are unremarkable. Hearing decrease. Neck is supple. No lymphadenopathy. No Crepitus. Cardiovascular: S1, S2, regular rate and rhythm. Pulmonary: Clear to auscultation bilaterally. Abdomen: Bowel sounds are positive. Abdomen is soft, nontender, and nondistended. Extremities: No rash, lesions, or edema. No restriction of range of motion NEUROLOGICAL EXAMINATION: Awake. Able to understand a few questions. Not oriented to time, place and person. PERRL. EOMI. CN: no focal findings. Muscle tone: increased in all extremities with joints deformities. Muscle strength: 4- DTR: 2- Plantar reflex: Neutral response bilaterally Gait: unable to walk. Sensory exam: no abnormal findings. No acute cerebellar signs elicited. F-T-N test not performed due to difficult to move hands. Objective Objective Vital Signs Date Time Temp Pulse Resp B/P (MAP) Pulse Ox O2 Delivery O2 Flow Rate FiO2 07/01/17 09:08 Room Air 07/01/17 09:00 82 102/55 07/01/17 07:00 98.1 18 97 98.1 Intake and Output 07/01/17 07:00 Intake Total 240 ml Output Total 950 ml Balance -710 ml Intake Oral 240 ml Output Urine Total 950 ml Vitals Signs Vitals VS - Last 72 Hours, by Label Date Time Temp Pulse Resp B/P (MAP) Pulse Ox O2 Delivery O2 Flow Rate FiO2 07/01/17 09:08 Room Air 07/01/17 09:00 82 102/55 07/01/17 07:30 Room Air 07/01/17 07:00 98.1 60 18 133/65 (87) 97 Room Air 98.1 07/01/17 03:10 98.4 62 16 111/58 (75) 97 Room Air 98.4 06/30/17 22:59 98.2 77 18 128/81 (97) 97 Room Air 98.2 06/30/17 22:17 20 97 Room Air 06/30/17 21:24 77 126/75 06/30/17 21:17 20 97 Room Air 06/30/17 20:01 Room Air 06/30/17 20:00 Room Air 06/30/17 19:20 98.5 77 18 126/75 (92) 97 Room Air 98.5 06/30/17 17:00 Room Air 06/30/17 15:00 97.5 64 16 129/78 (95) 97 Room Air 97.5 06/30/17 14:00 98.0 65 16 137/72 (93) 95 Room Air 98.0 06/30/17 14:00 98.0 65 16 137/72 (93) 95 Room Air 98.0 06/30/17 12:26 76 16 97 06/30/17 12:15 74 16 97 06/30/17 12:00 76 16 97 06/30/17 11:45 76 16 97 06/30/17 11:30 76 16 97 06/30/17 11:15 74 16 97 06/30/17 11:00 74 16 97 06/30/17 10:45 76 16 96 06/30/17 10:30 76 18 95 06/30/17 10:15 72 18 95 06/30/17 10:05 97.6 85 18 117/85 (96) 98 Room Air 97.6 Medication Medications Current Medications Acetaminophen (Tylenol) 325 mg QID PO Last administered on 06/30/17 16:59; Start 06/30/17 at 17:00 Aspirin (Deana Aspirin) 325 mg DAILYWBKFT PO Last administered on 07/01/17 09 :18; Start 07/01/17 at 08:00 Carbidopa/Levodopa (Sinemet 25/100) 1 tab BID PO Last administered on 09:09; Start 06/30/17 at 21:00 Ciprofloxacin/ Dextrose 200 ml @ 200 mls/hr Q12HR IV Last administered on 09:10; Start 06/30/17 at 21:00 Docusate Sodium (Colace) 100 mg BID PO Last administered on 06/30/17 21:17; Start 06/30/17 at 21:00 Furosemide (Lasix) 20 mg DAILY PO Last administered on 07/01/17 09:08; Start 07/01/17 at 09:00 Gadobutrol (Gadavist) 4.5 mmol 1X ONCE IV Last administered on 07/01/17 11: 07; Start 07/01/17 at 10:45; Stop 07/01/17 at 10:46; Status DC Hydralazine HCl (Apresoline) 25 mg BID PO Last administered on 06/30/17 21:24 ; Start 06/30/17 at 21:00 Meclizine HCl (Antivert) 12.5 mg QID PO Last administered on 07/01/17 09:08; Start 06/30/17 at 17:00 Mirtazapine (Remeron) 7.5 mg QHS PO Last administered on 06/30/17 21:22; Start 06/30/17 at 21:00 Olanzapine (ZyPREXA) 5 mg DAILY PO Last administered on 07/01/17 09:18; Start 07/01/17 at 09:00 Oxycodone/ Acetaminophen (Percocet 5/325) 1 tab QID PO Last administered on 09:08; Start 06/30/17 at 17:00 Polyethylene Glycol (miraLAX PACKET) 17 gm DAILY PO ; Start 07/01/17 at 09:00 Potassium Chloride (Klor-Con) 10 meq DAILYWBKFT PO Last administered on 09:09; Start 07/01/17 at 08:00 Vitamin D (Vitamin D3) 1,000 unit DAILY PO Last administered on 07/01/17 09: 08; Start 07/01/17 at 09:00 Comment Review of Relevant I have reviewed the following items clovis (where applicable) has been applied. ESTELITA VO MD Jul 01, 2017 13:57
[2017-07-01 15:00] VITALS: BP 135/57
--- NOTE | 2017-07-01 15:08 | PDOC ---
PROGRESS NOTES Chief Complaint Chief Complaint LEFT eye blurry vision, likely chronic , no neurologic problem recent UTI with MDR KPNA, ECOLI recent HYPernatremia, hypokalemia decubitus ulcer Bed bound with chronic contractures moderate dementia dysphagia diet 1 parkonsons dz recent metabolic encephalopathy with sepsis, dementia, Parkinson dz chronic stable AFIB, no AC from SNF plan: fu with neuro, ophtal, no intervention supposed to be on meropenum iv or po fosfomycin which we dont have here will restart meropenum for now dc tmr ASA 325mg daily PAT consult for DNR, FC for now need fu with ophtal in the office History of Present Illness History of Present Illness ROS: no fever, chills, sob, chest pain very drowsy in the am, better at afternoon am: aaox1 to person only pm: aaox 2-3, knows the place, the day said left eye blurry for few weeks already just dced on 06/29 for AMS, uti. Vitals Vitals Vital Signs Date Time Temp Pulse Resp B/P (MAP) Pulse Ox O2 Delivery O2 Flow Rate FiO2 07/01/17 14:52 Room Air 07/01/17 09:00 82 102/55 07/01/17 07:00 98.1 18 97 98.1 Physical Exam General: Alert, Oriented X3, Cooperative Heart: Regular rate, Normal S1, Normal S2 Lungs: Clear Abdomen: Normal bowel sounds, Soft Extremities: No clubbing, No cyanosis Assessment and Plan Assessmemt and Plan Problems Medical Problems: (1) Central retinal artery occlusion of left eye Status: Acute Problems: Comment Review of Relevant I have reviewed the following items clovis (where applicable) has been applied. Labs Laboratory Tests Test 06/30/17 10:11 06/30/17 10:50 06/30/17 11:00 06/30/17 11:22 Glucose (Fingerstick) 80 mg/dL (70-99) White Blood Count 7.5 x10^3/uL (4.0-11.0) Red Blood Count 4.38 x10^6/uL (3.50-5.40) Hemoglobin 12.8 g/dL (12.0-15.5) Hematocrit 40.0 % (36.0-47.0) Mean Corpuscular Volume 91 fL (79-100) Mean Corpuscular Hemoglobin 29 pg (25-35) Mean Corpuscular Hemoglobin Concent 32 g/dL (31-37) Red Cell Distribution Width 14.4 % (11.5-14.5) Platelet Count 231 x10^3/uL (140-400) Neutrophils (%) (Auto) 73 % (31-73) Lymphocytes (%) (Auto) 20 % (24-48) Monocytes (%) (Auto) 5 % (0-9) Eosinophils (%) (Auto) 2 % (0-3) Basophils (%) (Auto) 1 % (0-3) Neutrophils # (Auto) 5.5 x10^3uL (1.8-7.7) Lymphocytes # (Auto) 1.5 x10^3/uL (1.0-4.8) Monocytes # (Auto) 0.4 x10^3/uL (0.0-1.1) Eosinophils # (Auto) 0.1 x10^3/uL (0.0-0.7) Basophils # (Auto) 0.1 x10^3/uL (0.0-0.2) Erythrocyte Sedimentation Rate 24 (0-25) Sodium Level 140 mmol/L (136-145) Potassium Level 4.0 mmol/L (3.5-5.1) Chloride Level 104 mmol/L (98-107) Carbon Dioxide Level 28 mmol/L (21-32) Anion Gap 8 (6-14) 10 mmol/L (6-14) Blood Urea Nitrogen 17 mg/dL (7-20) Creatinine 0.5 mg/dL (0.6-1.0) Estimated GFR (Cockcroft-Gault) 120.9 Glucose Level 93 mg/dL (70-99) 81 mg/dL (70-99) Calcium Level 9.7 mg/dL (8.5-10.1) Magnesium Level 2.5 mg/dL (1.8-2.4) Total Bilirubin 0.3 mg/dL (0.2-1.0) Direct Bilirubin 0.1 mg/dL (0.0-0.2) Aspartate Amino Transf (AST/SGOT) 130 U/L (15-37) Alanine Aminotransferase (ALT/SGPT) 56 U/L (14-59) Alkaline Phosphatase 91 U/L (46-116) Ammonia < 10 mcmol/L (11-34) Creatine Kinase 50 U/L (26-192) Creatine Kinase MB (Mass) 1.8 ng/mL (0.0-3.6) Creatine Kinase MB Relative Index % (0-4) Troponin I Quantitative 0.044 ng/mL (0.000-0.055) C-Reactive Protein, Quantitative 4.0 mg/L (0-3.3) MN-Xdd-U-Type Natriuretic Peptide 137 pg/mL (0-124) Total Protein 6.5 g/dL (6.4-8.2) Albumin 2.7 g/dL (3.4-5.0) Thyroid Stimulating Hormone (TSH) 1.495 uIU/mL (0.358-3.74) Urine Collection Type Unknown Urine Color Yellow Urine Clarity Cloudy Urine pH 7.5 Urine Specific [facility] 1.015 Urine Protein Negative mg/dL (NEG-TRACE) Urine Glucose (UA) Negative mg/dL (NEG) Urine Ketones (Stick) Negative mg/dL (NEG) Urine Blood Negative (NEG) Urine Nitrite Negative (NEG) Urine Bilirubin Negative (NEG) Urine Urobilinogen Dipstick 0.2 mg/dL (0.2 mg/dL) Urine Leukocyte Esterase Large (NEG) Urine RBC Occ /HPF (0-2) Urine WBC Tntc /HPF (0-4) Urine Squamous Epithelial Cells Occ /LPF Urine Bacteria Many /HPF (0-FEW) Bedside Hemoglobin 13.3 g/dL (12-15) Bedside Hematocrit 39 % (36-40) Bedside Sodium 138 mmol/L (135-145) Bedside Potassium 4.7 mmol/L (3.5-5.0) Bedside Chloride 103 mmol/L (98-110) Bedside Total CO2 32 mmol/L (23-32) Bedside Blood Urea Nitrogen 20 mg/dL (8-26) Bedside Creatinine 0.5 mg/dL (0.5-1.4) Bedside Ionized Calcium (Nilda) 1.19 mmol/L (1.13-1.32) Medications Current Medications Tetracaine HCl (Tetracaine) 1 drop 1X ONCE OS Last administered on 06/30/17t 10:30; Start 06/30/17 at 10:30; Stop 06/30/17 at 10:32; Status DC Iohexol (Omnipaque 300 Mg/ml) 75 ml 1X ONCE IV Last administered on 11:34; Start 06/30/17 at 11:15; Stop 06/30/17 at 11:16; Status DC Info (Do NOT chart on this entry -- for MONITORING) 1 each PRN DAILY PRN MC SEE COMMENTS; Start 06/30/17 at 11:15; Stop 07/02/17 at 11:14 Ondansetron HCl (Zofran) 4 mg PRN Q8HRS PRN IV NAUSEA/VOMITING; Start at 12:15; Stop 07/01/17 at 12:14; Status DC Sodium Chloride 1,000 ml @ 80 mls/hr [id number] IV Last administered on 04:11; Start 06/30/17 at 12:14; Stop 07/01/17 at 12:13; Status DC Acetaminophen (Tylenol) 650 mg PRN Q4HRS PRN PO FEVER; Start 06/30/17 at 12:15 ; Stop 07/01/17 at 12:14; Status DC Ciprofloxacin/ Dextrose 200 ml @ 200 mls/hr Q12HR IV ; Start 06/30/17 at 13:30 ; Status Cancel Ciprofloxacin/ Dextrose 200 ml @ 200 mls/hr 1X ONCE IV Last administered on 06/30/17 13:00; Start 06/30/17 at 13:00; Stop 06/30/17 at 13:59; Status DC Ciprofloxacin/ Dextrose 200 ml @ 200 mls/hr Q12HR IV Last administered on 09:10; Start 06/30/17 at 21:00; Stop 07/01/17 at 14:13; Status DC Acetaminophen (Tylenol) 325 mg QID PO Last administered on 06/30/17 16:59; Start 06/30/17 at 17:00 Carbidopa/Levodopa (Sinemet 25/100) 1 tab BID PO Last administered on 09:09; Start 06/30/17 at 21:00 Vitamin D (Vitamin D3) 1,000 unit DAILY PO Last administered on 07/01/17 09: 08; Start 07/01/17 at 09:00 Docusate Sodium (Colace) 100 mg BID PO Last administered on 06/30/17 21:17; Start 06/30/17 at 21:00 Furosemide (Lasix) 20 mg DAILY PO Last administered on 07/01/17 09:08; Start 07/01/17 at 09:00 Hydralazine HCl (Apresoline) 25 mg BID PO Last administered on 06/30/17 21:24 ; Start 06/30/17 at 21:00 Meclizine HCl (Antivert) 12.5 mg QID PO Last administered on 07/01/17 14:52; Start 06/30/17 at 17:00 Mirtazapine (Remeron) 7.5 mg QHS PO Last administered on 06/30/17 21:22; Start 06/30/17 at 21:00 Olanzapine (ZyPREXA) 5 mg DAILY PO Last administered on 07/01/17 09:18; Start 07/01/17 at 09:00 Oxycodone/ Acetaminophen (Percocet 5/325) 1 tab QID PO Last administered on 14:52; Start 06/30/17 at 17:00 Polyethylene Glycol (miraLAX PACKET) 17 gm DAILY PO ; Start 07/01/17 at 09:00 Potassium Chloride (Klor-Con) 10 meq DAILYWBKFT PO Last administered on 09:09; Start 07/01/17 at 08:00 Aspirin (Deana Aspirin) 325 mg DAILYWBKFT PO Last administered on 07/01/17 09 :18; Start 07/01/17 at 08:00 Gadobutrol (Gadavist) 4.5 mmol 1X ONCE IV Last administered on 07/01/17 11: 07; Start 07/01/17 at 10:45; Stop 07/01/17 at 10:46; Status DC Ciprofloxacin (Cipro) 250 mg BID PO ; Start 07/01/17 at 21:00 Active Scripts Active Hydralazine Hcl 25 Mg Tablet 25 Mg PO BID 30 Days Reported Potassium Chloride 10 Meq Capsule.er 10 Meq PO DAILY Percocet 5-325 Mg Tablet (Oxycodone/Acetaminophen) 1 Each Tablet 1 Tab PO QID Mirtazapine 15 Mg Tablet 0.5 Tab PO QHS Polyethylene Glycol 3350 255 Gm Powder 17 Gm PO DAILY Meclizine Hcl 12.5 Mg Tablet 1 Tab PO QID Colace (Docusate Sodium) 100 Mg Capsule 1 Cap PO BID Tylenol (Acetaminophen) 325 Mg Tablet 325 Mg PO QID Multi-Day Plus Iron Tablet (Multivitamin/Iron/Folic Acid) 1 Each Tablet 1 Each PO Carbidopa-Levodopa 25-100 Tab (Carbidopa/Levodopa) 1 Each Tablet 1 Each PO BID Vitamin D3 (Cholecalciferol (Vitamin D3)) 1,000 Unit Tablet 1,000 Unit PO DAILY Furosemide 20 Mg Tablet 20 Mg PO DAILY Olanzapine 5 Mg Tablet 5 Mg PO DAILY Vitals/I & O Vital Sign - Last 24 Hours 06/30/17 06/30/17 06/30/17 06/30/17 17:00 19:20 20:00 20:01 Temp 98.5 98.5 Pulse 77 Resp 18 B/P (MAP) 126/75 (92) Pulse Ox 97 O2 Delivery Room Air Room Air Room Air Room Air 06/30/17 06/30/17 06/30/17 06/30/17 21:17 21:24 22:17 22:59 Temp 98.2 98.2 Pulse 77 77 Resp 20 20 18 B/P (MAP) 126/75 128/81 (97) Pulse Ox 97 97 97 O2 Delivery Room Air Room Air Room Air 07/01/17 07/01/17 07/01/17 07/01/17 03:10 07:00 07:30 09:00 Temp 98.4 98.1 98.4 98.1 Pulse 62 60 82 Resp 16 18 B/P (MAP) 111/58 (75) 133/65 (87) 102/55 Pulse Ox 97 97 O2 Delivery Room Air Room Air Room Air 07/01/17 07/01/17 09:08 14:52 O2 Delivery Room Air Room Air Intake and Output 06/30/17 06/30/17 07/01/17 14:59 22:59 06:59 Intake Total 240 ml Output Total 500 ml 450 ml Balance -500 ml -210 ml ANKUR POSADA MD Jul 01, 2017 15:08
[2017-07-01] MEDS: MEROPENEM IV Push 500 MG VIAL. IVP SCH ×2 (16:48→22:00)
[2017-07-01 19:40] VITALS: BP 136/57
[2017-07-01] MEDS ORDERED: CIPROFLOXACIN HCL 250 MG TABLET. PO SCH (21:00)
[2017-07-01] MEDS: MIRTAZAPINE 7.5 MG TABLET. PO SCH (21:29)
[2017-07-01] MEDS ORDERED: MEROPENEM 500 MG in IV NORMAL SALINE 50ML 50 ML IV SCH (22:00)
[2017-07-01 23:24] VITALS: BP 135/71
[2017-07-02 03:43] VITALS: BP 133/66
[2017-07-02] MEDS: MEROPENEM IV Push 500 MG VIAL. IVP SCH ×3 (05:16→22:04)
[2017-07-02 07:00] VITALS: BP 126/66
[2017-07-02] MEDS: POLYETHYLENE GLYCOL 3350 17 GM PACKET. PO SCH (09:00)
[2017-07-02] MEDS: CHOLECALCIFEROL (VITAMIN D3) 1,000 UNIT TABLET PO SCH (09:07)
[2017-07-02] MEDS: POTASSIUM CHLORIDE 10 MEQ TABLET.ER. PO SCH (09:07)
[2017-07-02] MEDS: ASPIRIN 325 MG TABLET PO SCH (09:07)
[2017-07-02] MEDS: DOCUSATE SODIUM 100 MG CAPSULE. PO SCH ×2 (09:07→20:31)
[2017-07-02] MEDS: OLANZapine 5 MG TABLET PO SCH (09:07)
[2017-07-02] MEDS: ACETAMINOPHEN 325 MG TABLET. PO SCH ×4 (09:08→20:31)
[2017-07-02] MEDS: FUROSEMIDE 20 MG TABLET PO SCH (09:08)
[2017-07-02] MEDS: MECLIZINE HCL 12.5 MG TABLET. PO SCH ×4 (09:08→20:31)
[2017-07-02] MEDS: CARBIDOPA/LEVODOPA 25/100MG TABLET PO SCH ×2 (09:08→20:31)
[2017-07-02] MEDS: oxyCODONE/APAP 5/325 1 TAB TABLET PO SCH ×4 (09:09→20:31)
[2017-07-02] MEDS: hydrALAZINE 25 MG TABLET PO SCH ×2 (09:11→20:31)
[2017-07-02 11:00] VITALS: BP 127/59
--- NOTE | 2017-07-02 13:12 | PDOC ---
PROGRESS NOTES Chief Complaint Chief Complaint LEFT eye blurry vision, likely chronic , no neurologic problem recent UTI with MDR KPNA, ECOLI recent HYPernatremia, hypokalemia decubitus ulcer Bed bound with chronic contractures moderate dementia dysphagia diet 1 parkonsons dz recent metabolic encephalopathy with sepsis, dementia, Parkinson dz chronic stable AFIB, no AC from SNF restarted meropenum PLAN to DC on fosphomycin History of Present Illness History of Present Illness lethargic but responsive, poor recall left pupil still dilated ROS: no fever, chills, sob, chest pain said left eye blurry for few weeks already recent dced on 06/29 for AMS, uti. FULL code listed here - palliative care was consulted Vitals Vitals Vital Signs Date Time Temp Pulse Resp B/P (MAP) Pulse Ox O2 Delivery O2 Flow Rate FiO2 07/02/17 11:00 97.2 52 16 127/59 (81) 97 Room Air 97.2 Physical Exam General: Alert, Cooperative, Other (not generally oriented, ) Heart: Regular rate, Normal S1, Normal S2 Lungs: Clear Abdomen: Normal bowel sounds, Soft Extremities: No clubbing, No cyanosis Skin: No significant lesion Assessment and Plan Assessmemt and Plan Problems Medical Problems: (1) Central retinal artery occlusion of left eye Status: Acute Problems: Comment Review of Relevant I have reviewed the following items clovis (where applicable) has been applied. Labs Laboratory Tests Test 07/01/17 02:24 Nasal Screen MRSA (PCR) Negative (Negative) Microbiology 06/30/17 Urine Culture - Final, Complete 06/30/17 Urine Culture Result 1 (CAT) - Final, Complete Medications Current Medications Tetracaine HCl (Tetracaine) 1 drop 1X ONCE OS Last administered on 06/30/17t 10:30; Start 06/30/17 at 10:30; Stop 06/30/17 at 10:32; Status DC Iohexol (Omnipaque 300 Mg/ml) 75 ml 1X ONCE IV Last administered on t 11:34; Start 06/30/17 at 11:15; Stop 06/30/17 at 11:16; Status DC Info (Do NOT chart on this entry -- for MONITORING) 1 each PRN DAILY PRN MC SEE COMMENTS; Start 06/30/17 at 11:15; Stop 07/02/17 at 11:14; Status DC Ondansetron HCl (Zofran) 4 mg PRN Q8HRS PRN IV NAUSEA/VOMITING; Start at 12:15; Stop 07/01/17 at 12:14; Status DC Sodium Chloride 1,000 ml @ 80 mls/hr [id number] IV Last administered on 04:11; Start 06/30/17 at 12:14; Stop 07/01/17 at 12:13; Status DC Acetaminophen (Tylenol) 650 mg PRN Q4HRS PRN PO FEVER; Start 06/30/17 at 12:15 ; Stop 07/01/17 at 12:14; Status DC Ciprofloxacin/ Dextrose 200 ml @ 200 mls/hr Q12HR IV ; Start 06/30/17 at 13:30 ; Status Cancel Ciprofloxacin/ Dextrose 200 ml @ 200 mls/hr 1X ONCE IV Last administered on 06/30/17 13:00; Start 06/30/17 at 13:00; Stop 06/30/17 at 13:59; Status DC Ciprofloxacin/ Dextrose 200 ml @ 200 mls/hr Q12HR IV Last administered on 09:10; Start 06/30/17 at 21:00; Stop 07/01/17 at 14:13; Status DC Acetaminophen (Tylenol) 325 mg QID PO Last administered on 07/02/17 09:08; Start 06/30/17 at 17:00 Carbidopa/Levodopa (Sinemet 25/100) 1 tab BID PO Last administered on 09:08; Start 06/30/17 at 21:00 Vitamin D (Vitamin D3) 1,000 unit DAILY PO Last administered on 07/02/17 09: 07; Start 07/01/17 at 09:00 Docusate Sodium (Colace) 100 mg BID PO Last administered on 07/02/17 09:07; Start 06/30/17 at 21:00 Furosemide (Lasix) 20 mg DAILY PO Last administered on 07/02/17 09:08; Start 07/01/17 at 09:00 Hydralazine HCl (Apresoline) 25 mg BID PO Last administered on 07/02/17 09:11 ; Start 06/30/17 at 21:00 Meclizine HCl (Antivert) 12.5 mg QID PO Last administered on 07/02/17 09:08; Start 06/30/17 at 17:00 Mirtazapine (Remeron) 7.5 mg QHS PO Last administered on 07/01/17 21:29; Start 06/30/17 at 21:00 Olanzapine (ZyPREXA) 5 mg DAILY PO Last administered on 07/02/17 09:07; Start 07/01/17 at 09:00 Oxycodone/ Acetaminophen (Percocet 5/325) 1 tab QID PO Last administered on 09:09; Start 06/30/17 at 17:00 Polyethylene Glycol (miraLAX PACKET) 17 gm DAILY PO ; Start 07/01/17 at 09:00 Potassium Chloride (Klor-Con) 10 meq DAILYWBKFT PO Last administered on 09:07; Start 07/01/17 at 08:00 Aspirin (Deana Aspirin) 325 mg DAILYWBKFT PO Last administered on 07/02/17 09 :07; Start 07/01/17 at 08:00 Gadobutrol (Gadavist) 4.5 mmol 1X ONCE IV Last administered on 07/01/17 11: 07; Start 07/01/17 at 10:45; Stop 07/01/17 at 10:46; Status DC Ciprofloxacin (Cipro) 250 mg BID PO ; Start 07/01/17 at 21:00; Stop 07/01/17 at 21:00; Status DC Meropenem 500 mg/ Sodium Chloride 50 ml @ 100 mls/hr Q8HRS IV ; Start at 22:00; Status UNV Meropenem (Merrem) 500 mg Q8HRS IVP Last administered on 07/02/17 05:16; Start 07/01/17 at 15:30 Active Scripts Active Hydralazine Hcl 25 Mg Tablet 25 Mg PO BID 30 Days Reported Potassium Chloride 10 Meq Capsule.er 10 Meq PO DAILY Percocet 5-325 Mg Tablet (Oxycodone/Acetaminophen) 1 Each Tablet 1 Tab PO QID Mirtazapine 15 Mg Tablet 0.5 Tab PO QHS Polyethylene Glycol 3350 255 Gm Powder 17 Gm PO DAILY Meclizine Hcl 12.5 Mg Tablet 1 Tab PO QID Colace (Docusate Sodium) 100 Mg Capsule 1 Cap PO BID Tylenol (Acetaminophen) 325 Mg Tablet 325 Mg PO QID Multi-Day Plus Iron Tablet (Multivitamin/Iron/Folic Acid) 1 Each Tablet 1 Each PO Carbidopa-Levodopa 25-100 Tab (Carbidopa/Levodopa) 1 Each Tablet 1 Each PO BID Vitamin D3 (Cholecalciferol (Vitamin D3)) 1,000 Unit Tablet 1,000 Unit PO DAILY Furosemide 20 Mg Tablet 20 Mg PO DAILY Olanzapine 5 Mg Tablet 5 Mg PO DAILY Vitals/I & O Vital Sign - Last 24 Hours 07/01/17 07/01/17 07/01/17 07/01/17 14:52 15:00 18:05 19:40 Temp 98.1 98.6 98.1 98.6 Pulse 69 68 Resp 18 18 B/P (MAP) 135/57 (83) 136/57 (83) Pulse Ox 96 96 O2 Delivery Room Air Room Air Room Air Room Air 07/01/17 07/01/17 07/01/17 07/01/17 20:00 21:30 21:31 22:31 Pulse 69 Resp 20 20 B/P (MAP) 135/57 Pulse Ox 96 99 O2 Delivery Room Air Room Air 07/01/17 07/02/17 07/02/17 07/02/17 23:24 03:43 07:00 09:09 Temp 97.1 97.0 97.2 97.1 97.0 97.2 Pulse 89 96 67 Resp 18 16 16 B/P (MAP) 135/71 (92) 133/66 (88) 126/66 (86) Pulse Ox 99 97 98 O2 Delivery Room Air Room Air Room Air Room Air 07/02/17 07/02/17 07/02/17 09:11 10:09 11:00 Temp 97.2 97.2 Pulse 78 52 Resp 16 B/P (MAP) 134/73 127/59 (81) Pulse Ox 97 O2 Delivery Room Air Room Air Intake and Output 07/01/17 07/01/17 07/02/17 15:00 23:00 07:00 Intake Total 120 ml 50 ml Output Total 1150 ml 750 ml Balance 120 ml -1150 ml -700 ml ERIC MORAES MD Jul 02, 2017 13:12
--- NOTE | 2017-07-02 14:54 | PDOC ---
PROGRESS NOTES Assessment Assessment Left pupil dilated x 1 day before admission, no neurological etiology found. Left eye vision loss, glaucoma? PD Dementia. HTN CHF Rigidity. No evidence of acute CVA or brain tumor. RECOMMENDATIONS/PLAN: Continue ASA daily. Continue Sinemet 25/100 mg qid. Treat medical diseases. Consulted Ophthalmology. OT/PT. Past Medical History Cardiovascular: CHF, HTN Pulmonary: No pertinent hx CENTRAL NERVOUS SYSTEM: Other Hepatobiliary: No pertinent hx Psych: Anxiety, Addictions, Schizophrenia Musculoskeletal: low back pain Renal/: Other Past Surgical History Hysterectomy, Other (wound vac decub ) Family History No Significant Social History Smoke: No ALCOHOL: none Drugs: None ALLERGY: Reviewed. MEDICATIONS: Refer to MAR REVIEW OF SYSTEMS: Constitutional: Dementia features. Head: No traumatic brain or head injury. Skin: No edema, or rash. Ear: No infection. Eyes: No vision loss, or diplopia. Nose: No bleeding or purulent discharges. Hearing: Hearing loss. Neck: No injury. Breast: No history of cancer, masses, or discharges. Cardiac: HTN Pulmonary: No COPD. GI: No GI Ulcer, GI bleeding. Urinary/genital: UTI. Endocrine: No cousin face, craniofacial dysmorphism, polydactyly. Skeletomuscular: Generalized weakness. Neurological: see HP. Psychiatric: Denies drug use/abuse. Otherwise, not [id number] review of systems. PHYSICAL EXAMINATION: General appearance in no acute distress. HEENT: Normocephalic and nontraumatic. Eyes, nose, ears, and throat are unremarkable. Hearing decrease. Neck is supple. No lymphadenopathy. No Crepitus. Cardiovascular: S1, S2, regular rate and rhythm. Pulmonary: Clear to auscultation bilaterally. Abdomen: Bowel sounds are positive. Abdomen is soft, nontender, and nondistended. Extremities: No rash, lesions, or edema. No restriction of range of motion NEUROLOGICAL EXAMINATION: Awake. Able to understand a few questions. Not oriented to time, place and person. Left pupil 4 mm not reacted to light stimulation. Right 1.5 mm, reactive to light. EOMI in right side. CN: no focal findings. Muscle tone: increased in all extremities with joints deformities. Muscle strength: 4- DTR: 2- Plantar reflex: Neutral response bilaterally Gait: unable to walk. Sensory exam: no abnormal findings. No acute cerebellar signs elicited. F-T-N test not performed due to difficult to move hands. Objective Objective Vital Signs Date Time Temp Pulse Resp B/P (MAP) Pulse Ox O2 Delivery O2 Flow Rate FiO2 07/02/17 14:41 Room Air 07/02/17 11:00 97.2 52 16 127/59 (81) 97 97.2 Intake and Output 07/02/17 07:00 Intake Total 170 ml Output Total 1900 ml Balance -1730 ml Intake Oral 170 ml Output Urine Total 1900 ml # Bowel Movements 1 Vitals Signs Vitals VS - Last 72 Hours, by Label Date Time Temp Pulse Resp B/P (MAP) Pulse Ox O2 Delivery O2 Flow Rate FiO2 07/02/17 14:41 Room Air 07/02/17 13:39 Room Air 07/02/17 11:00 97.2 52 16 127/59 (81) 97 Room Air 97.2 07/02/17 09:11 78 134/73 07/02/17 09:09 Room Air 07/02/17 08:00 Room Air 07/02/17 07:00 97.2 67 16 126/66 (86) 98 Room Air 97.2 07/02/17 03:43 97.0 96 16 133/66 (88) 97 Room Air 97.0 07/01/17 23:24 97.1 89 18 135/71 (92) 99 Room Air 97.1 07/01/17 22:31 20 99 07/01/17 21:31 20 96 Room Air 07/01/17 21:30 69 135/57 07/01/17 20:00 Room Air 07/01/17 19:40 98.6 68 18 136/57 (83) 96 Room Air 98.6 07/01/17 18:05 Room Air 07/01/17 15:00 98.1 69 18 135/57 (83) 96 Room Air 98.1 07/01/17 14:52 Room Air 07/01/17 09:08 Room Air 07/01/17 09:00 82 102/55 07/01/17 07:30 Room Air 07/01/17 07:00 98.1 60 18 133/65 (87) 97 Room Air 98.1 Laboratory Laboratory Microbiology 06/30/17 Urine Culture - Final, Complete 06/30/17 Urine Culture Result 1 (CAT) - Final, Complete Medication Medications Current Medications Ciprofloxacin (Cipro) 250 mg BID PO ; Start 07/01/17 at 21:00; Stop 07/01/17 at 21:00; Status DC Meropenem (Merrem) 500 mg Q8HRS IVP Last administered on 07/02/17t 13:39; Start 07/01/17 at 15:30 Meropenem 500 mg/ Sodium Chloride 50 ml @ 100 mls/hr Q8HRS IV ; Start at 22:00; Status UNV Comment Review of Relevant I have reviewed the following items clovis (where applicable) has been applied. ESTELITA VO MD Jul 02, 2017 14:54
--- NOTE | 2017-07-02 14:58 | PDOC2 ---
NEUROLOGY CONSULT Date of Admission Date of Admission DATE: 07/02/17 TIME: 14:55 Reason for Consult Reason for Consult: NEUROLOGY CONSULTATION 06-30-17 Left pupil dilated x 1 day before admission. Left eye vision loss, glaucoma? PD Dementia. HTN CHF Rigidity. RECOMMENDATIONS/PLAN: Brain MRI w/wo contrast. Continue Sinemet 25/100 mg qid. Treat medical diseases. Consulted Ophthalmology. OT/PT. Past Medical History Cardiovascular: CHF, HTN Pulmonary: No pertinent hx CENTRAL NERVOUS SYSTEM: Other Hepatobiliary: No pertinent hx Psych: Anxiety, Addictions, Schizophrenia Musculoskeletal: low back pain Renal/: Other Past Surgical History Hysterectomy, Other (wound vac decub ) Family History No Significant Social History Smoke: No ALCOHOL: none Drugs: None ALLERGY: Reviewed. MEDICATIONS: Refer to MAR REVIEW OF SYSTEMS: Constitutional: Dementia features. Head: No traumatic brain or head injury. Skin: No edema, or rash. Ear: No infection. Eyes: No vision loss, or diplopia. Nose: No bleeding or purulent discharges. Hearing: Hearing loss. Neck: No injury. Breast: No history of cancer, masses, or discharges. Cardiac: HTN Pulmonary: No COPD. GI: No GI Ulcer, GI bleeding. Urinary/genital: UTI. Endocrine: No cousin face, craniofacial dysmorphism, polydactyly. Skeletomuscular: Generalized weakness. Neurological: see HP. Psychiatric: Denies drug use/abuse. Otherwise, not -viayn review of systems. PHYSICAL EXAMINATION: General appearance in subacute distress. HEENT: Normocephalic and nontraumatic. Eyes, nose, ears, and throat are unremarkable. Hearing decrease. Neck is supple. No lymphadenopathy. No Crepitus. Cardiovascular: S1, S2, regular rate and rhythm. Pulmonary: Clear to auscultation bilaterally. Abdomen: Bowel sounds are positive. Abdomen is soft, nontender, and nondistended. Extremities: No rash, lesions, or edema. No restriction of range of motion NEUROLOGICAL EXAMINATION: Awake. Able to understand a few questions. Not oriented to time, place and person. Left pupil 4-5 mm not reactive to light stimulation, right side 1.5 mm EOMI in right eye. CN: no focal findings. Muscle tone: increased in all extremities with joints deformities. Muscle strength: 4- DTR: 2- Plantar reflex: Neutral response bilaterally Gait: unable to walk. Sensory exam: no abnormal findings. No acute cerebellar signs elicited. F-T-N test not performed due to difficult to move hands. Current Medications Current Medications Current Medications Tetracaine HCl (Tetracaine) 1 drop 1X ONCE OS Last administered on 06/30/17 10:30; Start 06/30/17 at 10:30; Stop 06/30/17 at 10:32; Status DC Iohexol (Omnipaque 300 Mg/ml) 75 ml 1X ONCE IV Last administered on 11:34; Start 06/30/17 at 11:15; Stop 06/30/17 at 11:16; Status DC Info (Do NOT chart on this entry -- for MONITORING) 1 each PRN DAILY PRN MC SEE COMMENTS; Start 06/30/17 at 11:15; Stop 07/02/17 at 11:14; Status DC Ondansetron HCl (Zofran) 4 mg PRN Q8HRS PRN IV NAUSEA/VOMITING; Start at 12:15; Stop 07/01/17 at 12:14; Status DC Sodium Chloride 1,000 ml @ 80 mls/hr [id number] IV Last administered on 04:11; Start 06/30/17 at 12:14; Stop 07/01/17 at 12:13; Status DC Acetaminophen (Tylenol) 650 mg PRN Q4HRS PRN PO FEVER; Start 06/30/17 at 12:15 ; Stop 07/01/17 at 12:14; Status DC Ciprofloxacin/ Dextrose 200 ml @ 200 mls/hr Q12HR IV ; Start 06/30/17 at 13:30 ; Status Cancel Ciprofloxacin/ Dextrose 200 ml @ 200 mls/hr 1X ONCE IV Last administered on 06/30/17 13:00; Start 06/30/17 at 13:00; Stop 06/30/17 at 13:59; Status DC Ciprofloxacin/ Dextrose 200 ml @ 200 mls/hr Q12HR IV Last administered on 09:10; Start 06/30/17 at 21:00; Stop 07/01/17 at 14:13; Status DC Acetaminophen (Tylenol) 325 mg QID PO Last administered on 07/02/17 13:38; Start 06/30/17 at 17:00 Carbidopa/Levodopa (Sinemet 25/100) 1 tab BID PO Last administered on 09:08; Start 06/30/17 at 21:00 Vitamin D (Vitamin D3) 1,000 unit DAILY PO Last administered on 07/02/17 09: 07; Start 07/01/17 at 09:00 Docusate Sodium (Colace) 100 mg BID PO Last administered on 07/02/17 09:07; Start 06/30/17 at 21:00 Furosemide (Lasix) 20 mg DAILY PO Last administered on 07/02/17 09:08; Start 07/01/17 at 09:00 Hydralazine HCl (Apresoline) 25 mg BID PO Last administered on 07/02/17 09:11 ; Start 06/30/17 at 21:00 Meclizine HCl (Antivert) 12.5 mg QID PO Last administered on 07/02/17 13:38; Start 06/30/17 at 17:00 Mirtazapine (Remeron) 7.5 mg QHS PO Last administered on 07/01/17 21:29; Start 06/30/17 at 21:00 Olanzapine (ZyPREXA) 5 mg DAILY PO Last administered on 07/02/17 09:07; Start 07/01/17 at 09:00 Oxycodone/ Acetaminophen (Percocet 5/325) 1 tab QID PO Last administered on 13:39; Start 06/30/17 at 17:00 Polyethylene Glycol (miraLAX PACKET) 17 gm DAILY PO ; Start 07/01/17 at 09:00 Potassium Chloride (Klor-Con) 10 meq DAILYWBKFT PO Last administered on 09:07; Start 07/01/17 at 08:00 Aspirin (Deana Aspirin) 325 mg DAILYWBKFT PO Last administered on 07/02/17 09 :07; Start 07/01/17 at 08:00 Gadobutrol (Gadavist) 4.5 mmol 1X ONCE IV Last administered on 07/01/17 11: 07; Start 07/01/17 at 10:45; Stop 07/01/17 at 10:46; Status DC Ciprofloxacin (Cipro) 250 mg BID PO ; Start 07/01/17 at 21:00; Stop 07/01/17 at 21:00; Status DC Meropenem 500 mg/ Sodium Chloride 50 ml @ 100 mls/hr Q8HRS IV ; Start at 22:00; Status UNV Meropenem (Merrem) 500 mg Q8HRS IVP Last administered on 07/02/17t 13:39; Start 07/01/17 at 15:30 Active Scripts Active Hydralazine Hcl 25 Mg Tablet 25 Mg PO BID 30 Days Reported Potassium Chloride 10 Meq Capsule.er 10 Meq PO DAILY Percocet 5-325 Mg Tablet (Oxycodone/Acetaminophen) 1 Each Tablet 1 Tab PO QID Mirtazapine 15 Mg Tablet 0.5 Tab PO QHS Polyethylene Glycol 3350 255 Gm Powder 17 Gm PO DAILY Meclizine Hcl 12.5 Mg Tablet 1 Tab PO QID Colace (Docusate Sodium) 100 Mg Capsule 1 Cap PO BID Tylenol (Acetaminophen) 325 Mg Tablet 325 Mg PO QID Multi-Day Plus Iron Tablet (Multivitamin/Iron/Folic Acid) 1 Each Tablet 1 Each PO Carbidopa-Levodopa 25-100 Tab (Carbidopa/Levodopa) 1 Each Tablet 1 Each PO BID Vitamin D3 (Cholecalciferol (Vitamin D3)) 1,000 Unit Tablet 1,000 Unit PO DAILY Furosemide 20 Mg Tablet 20 Mg PO DAILY Olanzapine 5 Mg Tablet 5 Mg PO DAILY Allergies Allergies: Coded Allergies: I S O L A T I O N *CONTACT* (Verified Allergy, Unknown, 06/27/17) MDRO (R) Klebsiella pneumoniae No Known Medication Allergies (Verified Allergy, Unknown, 06/27/17) Vitals VITALS Vital Signs Date Time Temp Pulse Resp B/P (MAP) Pulse Ox O2 Delivery O2 Flow Rate FiO2 07/02/17 14:41 Room Air 07/02/17 11:00 97.2 52 16 127/59 (81) 97 97.2 Labs Labs Laboratory Tests Test 07/01/17 02:24 Nasal Screen MRSA (PCR) Negative (Negative) ESTELITA VO MD Jul 02, 2017 14:58
[2017-07-02 15:00] VITALS: BP 126/63
[2017-07-02 19:15] VITALS: BP 125/65
[2017-07-02] MEDS: MIRTAZAPINE 7.5 MG TABLET. PO SCH (20:31)
[2017-07-02 23:12] VITALS: BP 120/71
[2017-07-03 02:59] VITALS: BP 174/74
[2017-07-03] MEDS: MEROPENEM IV Push 500 MG VIAL. IVP SCH ×3 (05:48→22:07)
[2017-07-03 07:20] VITALS: BP 139/66
[2017-07-03] MEDS: ASPIRIN 325 MG TABLET PO SCH (08:51)
[2017-07-03] MEDS: DOCUSATE SODIUM 100 MG CAPSULE. PO SCH ×2 (08:52→22:06)
[2017-07-03] MEDS: ACETAMINOPHEN 325 MG TABLET. PO SCH ×4 (08:52→22:06)
[2017-07-03] MEDS: POTASSIUM CHLORIDE 10 MEQ TABLET.ER. PO SCH (08:52)
[2017-07-03] MEDS: hydrALAZINE 25 MG TABLET PO SCH ×2 (08:52→22:06)
[2017-07-03] MEDS: CARBIDOPA/LEVODOPA 25/100MG TABLET PO SCH ×2 (08:52→22:06)
[2017-07-03] MEDS: CHOLECALCIFEROL (VITAMIN D3) 1,000 UNIT TABLET PO SCH (08:52)
[2017-07-03] MEDS: FUROSEMIDE 20 MG TABLET PO SCH (08:52)
[2017-07-03] MEDS: MECLIZINE HCL 12.5 MG TABLET. PO SCH ×4 (08:52→22:06)
[2017-07-03] MEDS: OLANZapine 5 MG TABLET PO SCH (08:52)
[2017-07-03] MEDS: oxyCODONE/APAP 5/325 1 TAB TABLET PO SCH ×4 (08:53→22:06)
[2017-07-03] MEDS: POLYETHYLENE GLYCOL 3350 17 GM PACKET. PO SCH (09:05)
[2017-07-03 11:15] VITALS: BP 124/79
--- NOTE | 2017-07-03 14:14 | PDOC ---
PROGRESS NOTES Chief Complaint Chief Complaint LEFT eye blurry vision, likely chronic , no neurologic problem recent UTI with MDR KPNA, ECOLI recent HYPernatremia, hypokalemia decubitus ulcer Bed bound with chronic contractures moderate dementia dysphagia diet 1 parkonsons dz recent metabolic encephalopathy with sepsis, dementia, Parkinson dz chronic stable AFIB, no AC from SNF restarted meropenum PLAN to DC on fosphomycin as previous History of Present Illness History of Present Illness lethargic but responsive, poor recall left pupil still dilated ROS: no fever, chills, sob, chest pain said left eye blurry for few weeks already recent dced on 06/29 for AMS, uti. FULL code listed here - palliative care has been consulted Vitals Vitals Vital Signs Date Time Temp Pulse Resp B/P (MAP) Pulse Ox O2 Delivery O2 Flow Rate FiO2 07/03/17 13:25 Room Air 07/03/17 11:15 98.0 72 18 124/79 (94) 95 98.0 Physical Exam Physical Exam no change General: Alert, Cooperative, Other (not generally oriented, ) Extremities: No clubbing, No cyanosis Skin: No significant lesion Review of Systems Review of Systems unable, Assessment and Plan Assessmemt and Plan Problems Medical Problems: (1) Central retinal artery occlusion of left eye Status: Acute Problems: Comment Review of Relevant I have reviewed the following items clovis (where applicable) has been applied. Labs Microbiology 06/30/17 Urine Culture - Final, Complete 06/30/17 Urine Culture Result 1 (CAT) - Final, Complete Medications Current Medications Tetracaine HCl (Tetracaine) 1 drop 1X ONCE OS Last administered on 06/30/17t 10:30; Start 06/30/17 at 10:30; Stop 06/30/17 at 10:32; Status DC Iohexol (Omnipaque 300 Mg/ml) 75 ml 1X ONCE IV Last administered on t 11:34; Start 06/30/17 at 11:15; Stop 06/30/17 at 11:16; Status DC Info (Do NOT chart on this entry -- for MONITORING) 1 each PRN DAILY PRN MC SEE COMMENTS; Start 06/30/17 at 11:15; Stop 07/02/17 at 11:14; Status DC Ondansetron HCl (Zofran) 4 mg PRN Q8HRS PRN IV NAUSEA/VOMITING; Start at 12:15; Stop 07/01/17 at 12:14; Status DC Sodium Chloride 1,000 ml @ 80 mls/hr [id number] IV Last administered on 04:11; Start 06/30/17 at 12:14; Stop 07/01/17 at 12:13; Status DC Acetaminophen (Tylenol) 650 mg PRN Q4HRS PRN PO FEVER; Start 06/30/17 at 12:15 ; Stop 07/01/17 at 12:14; Status DC Ciprofloxacin/ Dextrose 200 ml @ 200 mls/hr Q12HR IV ; Start 06/30/17 at 13:30 ; Status Cancel Ciprofloxacin/ Dextrose 200 ml @ 200 mls/hr 1X ONCE IV Last administered on 06/30/17 13:00; Start 06/30/17 at 13:00; Stop 06/30/17 at 13:59; Status DC Ciprofloxacin/ Dextrose 200 ml @ 200 mls/hr Q12HR IV Last administered on 09:10; Start 06/30/17 at 21:00; Stop 07/01/17 at 14:13; Status DC Acetaminophen (Tylenol) 325 mg QID PO Last administered on 07/03/17 12:15; Start 06/30/17 at 17:00 Carbidopa/Levodopa (Sinemet 25/100) 1 tab BID PO Last administered on 08:52; Start 06/30/17 at 21:00 Vitamin D (Vitamin D3) 1,000 unit DAILY PO Last administered on 07/03/17 08: 52; Start 07/01/17 at 09:00 Docusate Sodium (Colace) 100 mg BID PO Last administered on 07/03/17 08:52; Start 06/30/17 at 21:00 Furosemide (Lasix) 20 mg DAILY PO Last administered on 07/03/17 08:52; Start 07/01/17 at 09:00 Hydralazine HCl (Apresoline) 25 mg BID PO Last administered on 07/03/17 08:52 ; Start 06/30/17 at 21:00 Meclizine HCl (Antivert) 12.5 mg QID PO Last administered on 11/19/17at 12:15; Start 06/30/17 at 17:00 Mirtazapine (Remeron) 7.5 mg QHS PO Last administered on 07/02/17 20:31; Start 06/30/17 at 21:00 Olanzapine (ZyPREXA) 5 mg DAILY PO Last administered on 07/03/17 08:52; Start 07/01/17 at 09:00 Oxycodone/ Acetaminophen (Percocet 5/325) 1 tab QID PO Last administered on 12:14; Start 06/30/17 at 17:00 Polyethylene Glycol (miraLAX PACKET) 17 gm DAILY PO Last administered on 09:05; Start 07/01/17 at 09:00 Potassium Chloride (Klor-Con) 10 meq DAILYWBKFT PO Last administered on 08:52; Start 07/01/17 at 08:00 Aspirin (Deana Aspirin) 325 mg DAILYWBKFT PO Last administered on 07/03/17 08 :51; Start 07/01/17 at 08:00 Gadobutrol (Gadavist) 4.5 mmol 1X ONCE IV Last administered on 07/01/17 11: 07; Start 07/01/17 at 10:45; Stop 07/01/17 at 10:46; Status DC Ciprofloxacin (Cipro) 250 mg BID PO ; Start 07/01/17 at 21:00; Stop 07/01/17 at 21:00; Status DC Meropenem 500 mg/ Sodium Chloride 50 ml @ 100 mls/hr Q8HRS IV ; Start at 22:00; Status UNV Meropenem (Merrem) 500 mg Q8HRS IVP Last administered on 07/03/17 05:48; Start 07/01/17 at 15:30 Active Scripts Active Hydralazine Hcl 25 Mg Tablet 25 Mg PO BID 30 Days Reported Potassium Chloride 10 Meq Capsule.er 10 Meq PO DAILY Percocet 5-325 Mg Tablet (Oxycodone/Acetaminophen) 1 Each Tablet 1 Tab PO QID Mirtazapine 15 Mg Tablet 0.5 Tab PO QHS Polyethylene Glycol 3350 255 Gm Powder 17 Gm PO DAILY Meclizine Hcl 12.5 Mg Tablet 1 Tab PO QID Colace (Docusate Sodium) 100 Mg Capsule 1 Cap PO BID Tylenol (Acetaminophen) 325 Mg Tablet 325 Mg PO QID Multi-Day Plus Iron Tablet (Multivitamin/Iron/Folic Acid) 1 Each Tablet 1 Each PO Carbidopa-Levodopa 25-100 Tab (Carbidopa/Levodopa) 1 Each Tablet 1 Each PO BID Vitamin D3 (Cholecalciferol (Vitamin D3)) 1,000 Unit Tablet 1,000 Unit PO DAILY Furosemide 20 Mg Tablet 20 Mg PO DAILY Olanzapine 5 Mg Tablet 5 Mg PO DAILY Vitals/I & O Vital Sign - Last 24 Hours 07/02/17 07/02/17 07/02/17 07/02/17 15:00 17:48 19:15 19:30 Temp 98.8 98.6 98.8 98.6 Pulse 84 93 Resp 16 16 B/P (MAP) 126/63 (84) 125/65 (85) Pulse Ox 99 98 O2 Delivery Room Air Room Air Room Air Room Air 07/02/17 07/02/17 07/02/17 07/02/17 20:31 20:31 21:30 23:12 Temp 98.6 98.6 Pulse 93 72 Resp 16 B/P (MAP) 125/65 120/71 (87) Pulse Ox 98 98 97 O2 Delivery Room Air Room Air 07/03/17 07/03/17 07/03/17 07/03/17 02:59 07:20 07:20 08:52 Temp 98.1 97.7 98.1 97.7 Pulse 74 78 78 Resp 18 16 B/P (MAP) 174/74 (107) 139/66 (90) 136/66 Pulse Ox 98 98 O2 Delivery Room Air Room Air Room Air 07/03/17 07/03/17 07/03/17 07/03/17 08:53 11:15 12:14 13:25 Temp 98.0 98.0 Pulse 72 Resp 18 B/P (MAP) 124/79 (94) Pulse Ox 95 O2 Delivery Room Air Room Air Room Air Intake and Output 07/02/17 07/02/17 07/03/17 15:00 23:00 07:00 Intake Total 360 ml 600 ml 240 ml Output Total 550 ml 450 ml Balance 360 ml 50 ml -210 ml ERIC MORAES MD Jul 03, 2017 14:14
[2017-07-03 15:00] VITALS: BP 123/68
--- NOTE | 2017-07-03 15:32 | PDOC ---
PROGRESS NOTES Assessment Assessment Left pupil dilated x 1 day before admission. Left eye vision loss for several months as patient stated on 07/03/17. PD Dementia. HTN CHF Rigidity. No evidence of acute CVA this time. RECOMMENDATIONS/PLAN: Continue Sinemet 25/100 mg qid. Treat medical diseases. Consulted Ophthalmology. OT/PT. Past Medical History Cardiovascular: CHF, HTN Pulmonary: No pertinent hx CENTRAL NERVOUS SYSTEM: Other Hepatobiliary: No pertinent hx Psych: Anxiety, Addictions, Schizophrenia Musculoskeletal: low back pain Renal/: Other Past Surgical History Hysterectomy, Other (wound vac decub ) Family History No Significant Social History Smoke: No ALCOHOL: none Drugs: None ALLERGY: Reviewed. MEDICATIONS: Refer to MAR REVIEW OF SYSTEMS: Constitutional: Dementia features. Head: No traumatic brain or head injury. Skin: No edema, or rash. Ear: No infection. Eyes: No vision loss, or diplopia. Nose: No bleeding or purulent discharges. Hearing: Hearing loss. Neck: No injury. Breast: No history of cancer, masses, or discharges. Cardiac: HTN Pulmonary: No COPD. GI: No GI Ulcer, GI bleeding. Urinary/genital: UTI. Endocrine: No cousin face, craniofacial dysmorphism, polydactyly. Skeletomuscular: Generalized weakness. Neurological: see HP. Psychiatric: Denies drug use/abuse. Otherwise, not [id number] review of systems. PHYSICAL EXAMINATION: General appearance in subacute distress. HEENT: Normocephalic and nontraumatic. Eyes, nose, ears, and throat are unremarkable. Hearing decrease. Neck is supple. No lymphadenopathy. No Crepitus. Cardiovascular: S1, S2, regular rate and rhythm. Pulmonary: Clear to auscultation bilaterally. Abdomen: Bowel sounds are positive. Abdomen is soft, nontender, and nondistended. Extremities: No rash, lesions, or edema. No restriction of range of motion NEUROLOGICAL EXAMINATION: Awake. Able to understand a few questions. Oriented partially to time, and knows place and person. Left pupil 4-5 mm not reactive to light stimulation, only sees light but not objects. Right side 1.5 mm reactive to light stimuli. EOMI in right eye. CN: no focal findings. Muscle tone: increased in all extremities with joints deformities. Muscle strength: 4- DTR: 2- Plantar reflex: Neutral response bilaterally Gait: unable to walk. Sensory exam: no abnormal findings. No acute cerebellar signs elicited. F-T-N test not performed due to difficult to move hands. Objective Objective Vital Signs Date Time Temp Pulse Resp B/P (MAP) Pulse Ox O2 Delivery O2 Flow Rate FiO2 07/03/17 15:00 98.0 90 16 123/68 (86) 96 98.0 07/03/17 13:25 Room Air Intake and Output 07/03/17 07:00 Intake Total 1200 ml Output Total 1000 ml Balance 200 ml Intake Oral 1200 ml Output Urine Total 1000 ml Vitals Signs Vitals VS - Last 72 Hours, by Label Date Time Temp Pulse Resp B/P (MAP) Pulse Ox O2 Delivery O2 Flow Rate FiO2 07/03/17 15:00 98.0 90 16 123/68 (86) 96 98.0 07/03/17 13:25 Room Air 07/03/17 12:14 Room Air 07/03/17 11:15 98.0 72 18 124/79 (94) 95 98.0 07/03/17 08:53 Room Air 07/03/17 08:52 78 136/66 07/03/17 07:20 Room Air 07/03/17 07:20 97.7 78 16 139/66 (90) 98 Room Air 97.7 07/03/17 02:59 98.1 74 18 174/74 (107) 98 Room Air 98.1 07/02/17 23:12 98.6 72 16 120/71 (87) 97 Room Air 98.6 07/02/17 21:30 98 07/02/17 20:31 98 Room Air 07/02/17 20:31 93 125/65 07/02/17 19:30 Room Air 07/02/17 19:15 98.6 93 16 125/65 (85) 98 Room Air 98.6 07/02/17 17:48 Room Air 07/02/17 15:00 98.8 84 16 126/63 (84) 99 Room Air 98.8 07/02/17 13:39 Room Air 07/02/17 11:00 97.2 52 16 127/59 (81) 97 Room Air 97.2 07/02/17 09:11 78 134/73 07/02/17 09:09 Room Air 07/02/17 08:00 Room Air 07/02/17 07:00 97.2 67 16 126/66 (86) 98 Room Air 97.2 Laboratory Laboratory Microbiology 06/30/17 Urine Culture - Final, Complete 06/30/17 Urine Culture Result 1 (CAT) - Final, Complete Comment Review of Relevant I have reviewed the following items clovis (where applicable) has been applied. ESTELITA VO MD Jul 03, 2017 15:32
[2017-07-03 19:00] VITALS: BP 138/72
[2017-07-03] MEDS: LACTOBACILLUS RHAMNOSUS GG 1 CAPSULE. PO SCH (22:06)
[2017-07-03] MEDS: MIRTAZAPINE 7.5 MG TABLET. PO SCH (22:07)
[2017-07-03 23:26] VITALS: BP 139/67
[2017-07-04 03:33] VITALS: BP 141/81
[2017-07-04] MEDS: MEROPENEM IV Push 500 MG VIAL. IVP SCH ×2 (05:47→13:14)
[2017-07-04 07:48] VITALS: BP 156/81
[2017-07-04] MEDS: MECLIZINE HCL 12.5 MG TABLET. PO SCH ×2 (08:50→13:15)
[2017-07-04] MEDS: CHOLECALCIFEROL (VITAMIN D3) 1,000 UNIT TABLET PO SCH (08:50)
[2017-07-04] MEDS: POLYETHYLENE GLYCOL 3350 17 GM PACKET. PO SCH (08:50)
[2017-07-04] MEDS: POTASSIUM CHLORIDE 10 MEQ TABLET.ER. PO SCH (08:50)
[2017-07-04] MEDS: FUROSEMIDE 20 MG TABLET PO SCH (08:50)
[2017-07-04] MEDS: ASPIRIN 325 MG TABLET PO SCH (08:50)
[2017-07-04] MEDS: ACETAMINOPHEN 325 MG TABLET. PO SCH ×2 (08:50→13:15)
[2017-07-04] MEDS: LACTOBACILLUS RHAMNOSUS GG 1 CAPSULE. PO SCH (08:50)
[2017-07-04] MEDS: OLANZapine 5 MG TABLET PO SCH (08:50)
[2017-07-04] MEDS: DOCUSATE SODIUM 100 MG CAPSULE. PO SCH (08:51)
[2017-07-04] MEDS: hydrALAZINE 25 MG TABLET PO SCH (08:51)
[2017-07-04] MEDS: CARBIDOPA/LEVODOPA 25/100MG TABLET PO SCH (08:51)
[2017-07-04] MEDS: oxyCODONE/APAP 5/325 1 TAB TABLET PO SCH ×2 (08:51→13:15)
--- NOTE | 2017-07-04 09:23 | PDOC3 ---
Discharge Summary Visit Information Date of Admission: Jun 30, 2017 Date of Discharge: Jul 04, 2017 Admitting Diagnosis Comment: CRAO Final Diagnosis Problems Medical Problems: (1) Central retinal artery occlusion of left eye Status: Acute Brief Hospital Course Allergies Allergies Coded Allergies Type Severity Reaction Last Updated Verified I S O L A T I O N *CONTACT* Allergy Unknown 06/27/17 Yes No Known Medication Allergies Allergy Unknown 06/27/17 Yes Vital Signs Vital Signs Date Time Temp Pulse Resp B/P (MAP) Pulse Ox O2 Delivery O2 Flow Rate FiO2 07/04/17 08:51 Room Air 07/04/17 08:51 81 156/81 07/04/17 07:48 98.8 18 95 98.8 Brief Hospital Course Ms. Brothers is a 71 old female, full code still, recentlty dcd few days ago for sepsis from HAP and stage 4 decub, admitted this time for CRAO, NEuro and ophtha consulted, non neurologic issue, NEeds OP ophtha ff up to dilate her, REady for snu with 1 dose fosfomycin, Was getting meropenem here bec of pharmacy unavailability Pt seen and examined Navneet Juarez international travel consultant Information Condition at Discharge: Improved, Stable Follow Up: Weeks (1 week Tyrell Garcia) Disposition/Orders: Other (SNF) Scheduled Acetaminophen (Tylenol), 325 MG PO QID, (Reported) Carbidopa/Levodopa (Carbidopa-Levodopa 25-100 Tab), 1 EACH PO BID, (Reported) Cholecalciferol (Vitamin D3) (Vitamin D3), 1,000 UNIT PO DAILY, (Reported) Docusate Sodium (Colace), 1 CAP PO BID, (Reported) Furosemide (Furosemide), 20 MG PO DAILY, (Reported) Hydralazine Hcl (Hydralazine Hcl), 25 MG PO BID Meclizine Hcl (Meclizine Hcl), 1 TAB PO QID, (Reported) Mirtazapine (Mirtazapine), 0.5 TAB PO QHS, (Reported) Olanzapine (Olanzapine), 5 MG PO DAILY, (Reported) Oxycodone/Apap 5-325 (Percocet 5-325 Mg Tablet), 1 TAB PO QID, (Reported) Polyethylene Glycol 3350 (Polyethylene Glycol 3350), 17 GM PO DAILY, (Reported) Potassium Chloride (Potassium Chloride), 10 MEQ PO DAILY, (Reported) Miscellaneous Medications Multivitamin/Iron/Folic Acid (Multi-Day Plus Iron Tablet), 1 EACH PO, (Reported) Discontinued Medications Amoxicillin/Potassium Clav (Augmentin 500-125 Tablet), 1 TAB PO BID, (Reported) Olanzapine (Olanzapine), 5 MG PO DAILY, (Reported) FARZANEH SALES MD Jul 04, 2017 09:23
[2017-07-04 11:00] VITALS: BP 130/61
--- NOTE | 2017-07-04 14:59 | PDOC ---
PROGRESS NOTES Assessment Assessment Left pupil dilated x 1 day before admission. Left eye vision loss for several months as patient stated on 07/03/17. PD Dementia. HTN CHF Rigidity. No evidence of acute CVA this time. RECOMMENDATIONS/PLAN: Continue Sinemet 25/100 mg qid. Treat medical diseases. Consulted Ophthalmology. OT/PT. Past Medical History Cardiovascular: CHF, HTN Pulmonary: No pertinent hx CENTRAL NERVOUS SYSTEM: Other Hepatobiliary: No pertinent hx Psych: Anxiety, Addictions, Schizophrenia Musculoskeletal: low back pain Renal/: Other Past Surgical History Hysterectomy, Other (wound vac decub ) Family History No Significant Social History Smoke: No ALCOHOL: none Drugs: None ALLERGY: Reviewed. MEDICATIONS: Refer to MAR REVIEW OF SYSTEMS: Constitutional: Dementia features. Head: No traumatic brain or head injury. Skin: No edema, or rash. Ear: No infection. Eyes: No vision loss, or diplopia. Nose: No bleeding or purulent discharges. Hearing: Hearing loss. Neck: No injury. Breast: No history of cancer, masses, or discharges. Cardiac: HTN Pulmonary: No COPD. GI: No GI Ulcer, GI bleeding. Urinary/genital: UTI. Endocrine: No cousin face, craniofacial dysmorphism, polydactyly. Skeletomuscular: Generalized weakness. Neurological: see HP. Psychiatric: Denies drug use/abuse. Otherwise, not -klnjn review of systems. PHYSICAL EXAMINATION: General appearance in no acute distress. HEENT: Normocephalic and nontraumatic. Eyes, nose, ears, and throat are unremarkable. Hearing decrease. Neck is supple. No lymphadenopathy. No Crepitus. Cardiovascular: S1, S2, regular rate and rhythm. Pulmonary: Clear to auscultation bilaterally. Abdomen: Bowel sounds are positive. Abdomen is soft, nontender, and nondistended. Extremities: No rash, lesions, or edema. No restriction of range of motion NEUROLOGICAL EXAMINATION: Awake. Able to understand a few questions. Oriented partially to time, and knows place and person. Left pupil 4-5 mm not reactive to light stimulation, only sees light but not objects. Right side 1.5 mm reactive to light stimuli. EOMI in right eye. CN: no focal findings. Muscle tone: increased in all extremities with significant joints deformities and contractures. Muscle strength: 4- DTR: 2- Plantar reflex: Neutral response bilaterally Gait: unable to walk. Sensory exam: no abnormal findings. No acute cerebellar signs elicited. F-T-N test not performed due to difficult to move hands. Objective Objective Vital Signs Date Time Temp Pulse Resp B/P (MAP) Pulse Ox O2 Delivery O2 Flow Rate FiO2 07/04/17 13:15 Room Air 07/04/17 11:00 98.1 85 18 130/61 (84) 96 98.1 Intake and Output 07/04/17 07:00 Intake Total 760 ml Output Total 1100 ml Balance -340 ml Intake Oral 760 ml Output Urine Total 1100 ml # Bowel Movements 1 Vitals Signs Vitals VS - Last 72 Hours, by Label Date Time Temp Pulse Resp B/P (MAP) Pulse Ox O2 Delivery O2 Flow Rate FiO2 07/04/17 13:15 Room Air 07/04/17 11:00 98.1 85 18 130/61 (84) 96 Room Air 98.1 07/04/17 10:00 Room Air 07/04/17 08:51 Room Air 07/04/17 08:51 81 156/81 07/04/17 08:21 Room Air 07/04/17 07:48 98.8 81 18 156/81 (106) 95 Room Air 98.8 07/04/17 03:33 97.4 80 16 141/81 (101) 94 Room Air 97.4 07/03/17 23:26 97.8 76 16 139/67 (91) 96 Room Air 97.8 07/03/17 23:06 14 07/03/17 22:06 16 98 Room Air 07/03/17 22:06 77 138/72 07/03/17 20:30 Room Air 07/03/17 19:00 97.9 77 16 138/72 (94) 98 Room Air 97.9 07/03/17 17:27 Room Air 07/03/17 15:00 98.0 90 16 123/68 (86) 96 98.0 07/03/17 12:14 Room Air 07/03/17 11:15 98.0 72 18 124/79 (94) 95 98.0 07/03/17 08:53 Room Air 07/03/17 08:52 78 136/66 07/03/17 07:20 Room Air 07/03/17 07:20 97.7 78 16 139/66 (90) 98 Room Air 97.7 Laboratory Laboratory Microbiology 06/30/17 Urine Culture - Final, Complete 06/30/17 Urine Culture Result 1 (CAT) - Final, Complete Medication Medications Current Medications Lactobacillus Rhamnosus (Culturelle) 1 cap BID PO Last administered on t 08:50; Start 07/03/17 at 21:00 Comment Review of Relevant I have reviewed the following items clovis (where applicable) has been applied. ESTELITA VO MD Jul 04, 2017 14:59
[2017-07-04 15:00] VITALS: BP 129/60
== END 2017-07-04 17:27 | DRG 123 ==
LOC: ER 10:05 → 4 NORTH 12:50 → UNDOADMIN 13:02 → 4 NORTH 13:02
PROVIDERS: ADMIT Internal Medicine Hematology & Oncology; ATTEND Internal Medicine Hematology & Oncology
DX: H34.12 Central retinal artery occlusion, left eye (principal); L89.94 Pressure ulcer of unspecified site, stage 4; E87.0 Hyperosmolality and hypernatremia; I11.0 Hypertensive heart disease with heart failure; I48.2 Chronic atrial fibrillation; G20 Parkinson's disease; F20.9 Schizophrenia, unspecified; I50.9 Heart failure, unspecified; R13.10 Dysphagia, unspecified; F19.20 Other psychoactive substance dependence, uncomplicated; H54.62 Unqualified visual loss, left eye, normal vision right eye; F03.90 Unspecified dementia, unspecified severity, without behavioral disturbance, psychotic disturbance, mood disturbance, and anxiety; H26.9 Unspecified cataract; H53.2 Diplopia; H57.04 Mydriasis; H57.02 Anisocoria; E87.6 Hypokalemia; F32.9 Major depressive disorder, single episode, unspecified; F41.9 Anxiety disorder, unspecified; H40.9 Unspecified glaucoma; Z74.01 Bed confinement status; Z93.1 Gastrostomy status; Z86.73 Personal history of transient ischemic attack (TIA), and cerebral infarction without residual deficits; Z87.440 Personal history of urinary (tract) infections; Z90.710 Acquired absence of both cervix and uterus; Z82.49 Family history of ischemic heart disease and other diseases of the circulatory system
CPT/HCPCS: 36415; 70450; 70496; 70498; 70553; 71010; 80047; 80048; 80076; 81001; 82140; 82553; 82962; 83735; 83880; 84443; 84484; 85025; 85651; 86140; 87086; 87641; 93005; A9585; J0744; J2185; J7030; J8597; Q9967; 99285-25

== ENCOUNTER 2017-07-12 15:29 | Inpatient (IN) | payer MEDICARE, BC ==
[~2017-07-12] VITALS: Ht 157.5 cm; Wt 57.2 kg
[2017-07-12] VITALS (9 sets, daily range): BP systolic 90–117; BP diastolic 40–62
--- NOTE | 2017-07-12 15:42 | PHYS DOC ---
Past Medical History Past Medical History: Anxiety, Depression, Heart Disease, Hypertension, Schizophrenia, Other Additional Past Medical Histor: Dysphagia-resolved, poss chf, PARKINSONS,LARGE LEFT BUTTOCK WOUND Past Surgical History: Hysterectomy, Other Additional Past Surgical Histo: Peg tube placement and removal, bilat pedal edema Alcohol Use: None Drug Use: None Adult General Chief Complaint Chief Complaint: NAUSEA/VOMITING/DIARRHA HPI HPI Patient is a 71 year old female who presents with light headedness and dizziness, nausea and vomiting. She states this started earlier today. She lives in a senior care and presents with vomiting in route with EMS. Her heart rate noted to be 42 upon my evaluation. She does not have any chest discomfort but states she feels lightheaded and dizzy. According to her brother she was on atenolol at the senior care but is not on her med list anymore. He states her heart rate usually runs in the 50s but has not gotten below 50 that he was aware of before. Review of Systems Review of Systems Constitutional: Denies fever or chills [] Eyes: Denies change in visual acuity, redness, or eye pain [] HENT: Denies nasal congestion or sore throat [] Respiratory: Denies cough or shortness of breath [] Cardiovascular: No additional information not addressed in HPI [] GI: Denies abdominal pain, bloody stools or diarrhea , positive for nausea, vomiting : Denies dysuria or hematuria [] Musculoskeletal: Denies back pain or joint pain [] Integument: Denies rash or skin lesions [] Neurologic: Denies headache, focal weakness or sensory changes [] Endocrine: Denies polyuria or polydipsia [] All other systems were reviewed and found to be within normal limits, except as documented in this note. Current Medications Current Medications Current Medications Medications (Trade) Dose Ordered Sig/Zacarias Start Time Stop Time Status Last Admin Dose Admin Acetaminophen (Tylenol) 500 mg PRN Q6HRS PRN 07/12/17 17:00 Carbidopa/Levodopa (Sinemet 25/100) 1 tab BID 07/12/17 21:00 Docusate Sodium (Colace) 100 mg BID 07/12/17 21:00 Dopamine HCl/ Dextrose 250 ml @ 9.1 mls/hr 1X ONCE 07/12/17 16:30 07/13/17 19:58 07/12/17 16:38 9.1 MLS/HR Furosemide (Lasix) 20 mg DAILY 07/13/17 09:00 Hydralazine HCl (Apresoline) 25 mg BID 07/12/17 21:00 Meclizine HCl (Antivert) 12.5 mg QID 07/12/17 17:00 Mirtazapine (Remeron) 7.5 mg QHS 07/12/17 21:00 Olanzapine (ZyPREXA) 5 mg DAILY 07/13/17 09:00 Ondansetron HCl (Zofran) 4 mg PRN Q8HRS PRN 07/12/17 17:00 07/13/17 16:59 Oxycodone/ Acetaminophen (Percocet 5/325) 1 tab QID 07/12/17 17:00 Polyethylene Glycol (miraLAX PACKET) 17 gm DAILY 07/13/17 09:00 Potassium Chloride (Klor-Con) 10 meq DAILYWBKFT 07/13/17 08:00 Vitamin D (Vitamin D3) 1,000 unit DAILY 07/13/17 09:00 Allergies Allergies Allergies Coded Allergies Type Severity Reaction Last Updated Verified I S O L A T I O N *CONTACT* Allergy Unknown 06/27/17 Yes No Known Medication Allergies Allergy Unknown 06/27/17 Yes Physical Exam Physical Exam Constitutional: Well developed, well nourished, no acute distress, non-toxic appearance. [] HENT: Normocephalic, atraumatic, bilateral external ears normal, oropharynx moist, no oral exudates, nose normal. [] Eyes: PERRLA, EOMI, conjunctiva normal, no discharge. Left pupil dilated and fixed Neck: Normal range of motion, no tenderness, supple, no stridor. [] Cardiovascular:Heart rate regular rhythm and bradycardic, no murmur [] Lungs & Thorax: Bilateral breath sounds clear to auscultation [] Abdomen: Bowel sounds normal, soft, no tenderness, no masses, no pulsatile masses. [] Skin: Warm, dry, no erythema, no rash. [] Back: No tenderness, no CVA tenderness. [] Extremities: No tenderness, no cyanosis, no clubbing, ROM intact, no edema. [] Neurologic: Alert and interactive, has Parkinson's tremor noted. Current Patient Data Vital Signs Vital Signs Date Time Temp Pulse Resp B/P (MAP) Pulse Ox O2 Delivery O2 Flow Rate FiO2 07/12/17 15:29 97.5 45 14 133/62 (85) 94 Room Air 97.5 Lab Values Laboratory Tests Test 07/12/17 15:40 07/12/17 16:00 Urine Collection Type Unknown Urine Color Yellow Urine Clarity Cloudy Urine pH 7.5 Urine Specific [place] 1.020 Urine Protein 100 mg/dL (NEG-TRACE) Urine Glucose (UA) Negative mg/dL (NEG) Urine Ketones (Stick) Negative mg/dL (NEG) Urine Blood Trace (NEG) Urine Nitrite Positive (NEG) Urine Bilirubin Negative (NEG) Urine Urobilinogen Dipstick 0.2 mg/dL (0.2 mg/dL) Urine Leukocyte Esterase Large (NEG) Urine RBC 1-2 /HPF (0-2) Urine WBC >40 /HPF (0-4) Urine Squamous Epithelial Cells Occ /LPF Urine Bacteria Many /HPF (0-FEW) Urine Hyaline Casts Few /HPF Urine Mucus Marked /LPF Urine Yeast Present /HPF White Blood Count 9.3 x10^3/uL (4.0-11.0) Red Blood Count 3.94 x10^6/uL (3.50-5.40) Hemoglobin 11.7 g/dL (12.0-15.5) L Hematocrit 35.7 % (36.0-47.0) L Mean Corpuscular Volume 91 fL (79-100) Mean Corpuscular Hemoglobin 30 pg (25-35) Mean Corpuscular Hemoglobin Concent 33 g/dL (31-37) Red Cell Distribution Width 14.2 % (11.5-14.5) Platelet Count 216 x10^3/uL (140-400) Neutrophils (%) (Auto) 80 % (31-73) H Lymphocytes (%) (Auto) 13 % (24-48) L Monocytes (%) (Auto) 5 % (0-9) Eosinophils (%) (Auto) 2 % (0-3) Basophils (%) (Auto) 1 % (0-3) Neutrophils # (Auto) 7.4 x10^3uL (1.8-7.7) Lymphocytes # (Auto) 1.2 x10^3/uL (1.0-4.8) Monocytes # (Auto) 0.4 x10^3/uL (0.0-1.1) Eosinophils # (Auto) 0.1 x10^3/uL (0.0-0.7) Basophils # (Auto) 0.1 x10^3/uL (0.0-0.2) Prothrombin Time 12.1 SEC (11.7-14.0) Prothrombin Time INR 1.0 (0.8-1.1) Sodium Level 141 mmol/L (136-145) Potassium Level 3.8 mmol/L (3.5-5.1) Chloride Level 105 mmol/L (98-107) Carbon Dioxide Level 31 mmol/L (21-32) Anion Gap 5 (6-14) L Blood Urea Nitrogen 17 mg/dL (7-20) Creatinine 0.7 mg/dL (0.6-1.0) Estimated GFR (Cockcroft-Gault) 82.0 Glucose Level 133 mg/dL (70-99) H Lactic Acid Level 0.5 mmol/L (0.4-2.0) Calcium Level 9.3 mg/dL (8.5-10.1) Magnesium Level 2.2 mg/dL (1.8-2.4) Total Bilirubin 0.2 mg/dL (0.2-1.0) Direct Bilirubin 0.1 mg/dL (0.0-0.2) Aspartate Amino Transferase (AST) 34 U/L (15-37) Alanine Aminotransferase (ALT) 55 U/L (14-59) Alkaline Phosphatase 85 U/L (46-116) Creatine Kinase 28 U/L (26-192) Creatine Kinase MB (Mass) 1.0 ng/mL (0.0-3.6) Creatine Kinase MB Relative Index 3.6 % (0-4) Troponin I Quantitative < 0.017 ng/mL (0.000-0.055) LD-Uge-C-Type Natriuretic Peptide 284 pg/mL (0-124) H Total Protein 6.5 g/dL (6.4-8.2) Albumin 3.1 g/dL (3.4-5.0) L Lipase 342 U/L (73-393) Thyroid Stimulating Hormone (TSH) 2.161 uIU/mL (0.358-3.74) Laboratory Tests 07/12/17 16:00 Laboratory Tests 07/12/17 16:00 EKG EKG EKG shows sinus bradycardia at a rate of [address] elevations or concerning T-wave inversions, and axis deviation noted, QTC 372 ms, as interpreted by me. Radiology/Procedures Radiology/Procedures [facility] [address] [place] [address] IMAGING REPORT Signed PATIENT: LAURA ARROYO ACCOUNT: [id number] : 1945 LOCATION: ER AGE: 71 SEX: F EXAM STATUS: REG ER ORD. PHYSICIAN: ANUSHA COE MD REASON: vomiting PROCEDURE: ACUTE ABDOMEN SERIES ACUTE ABDOMEN SERIES Clinical Indication: vomiting Comparison: Abdominal radiographs dated 11/19/2016, chest radiograph dated 06/30/2017 Findings: The patient is rotated to the left on the chest radiograph. Normal lung volume. No focal consolidations. Normal pulmonary vasculature. No pleural effusion or pneumothorax. The cardiomediastinal silhouette is stable. Stable tortuous and atherosclerotic thoracic aorta. Nonobstructive bowel gas pattern. Large amount of stool within the rectal vault. No obvious free air. Redemonstration of numerous calcifications in left upper abdominal quadrant. No acute osseous abnormality. IMPRESSION: 1. No acute cardiopulmonary process. 2. Nonobstructive bowel gas pattern. 3. Large amount of stool within the rectal vault. DICTATED and SIGNED BY: ASHLEY GARCIA MD DATE: 07/12/17 1626 CC: ANUSHA COE MD; CHAN ROJAS MD ~ Impressions: Bradycardia Nausea vomiting Lightheadedness UTI Course & Med Decision Making Course & Med Decision Making Pertinent Labs and Imaging studies reviewed. (See chart for details) She was started on dopamine for her bradycardia. Her labs do not show any acute abnormalities. Her remaining vitals are stable. Spoke with regarding patient's bradycardia and started on dopamine. Patient's being admitted to the ICU with Dr. Tolliver as primary. She is in stable condition at this time. She does have positive nitrites and bacteria in her urine. We'll go ahead and treat for UTI since she's having nausea and vomiting. Dragon Disclaimer Dragon Disclaimer This electronic medical record was generated, in whole or in part, using a voice recognition dictation system. Departure Departure Impression: Primary Impression: Bradycardia Disposition: 09 ADMITTED INPATIENT Admitting Physician: Alka Tolliver Condition: STABLE Referrals: CHAN ROJAS MD (PCP) ANUSHA COE MD Jul 12, 2017 15:42
--- NOTE | 2017-07-12 15:57 | EKG ---
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
[2017-07-12 16:01] LABS: BILIRUBIN,URINE NEGATIVE (NEG); GLUCOSE,URINE NEGATIVE (NEG); NITRITE,URINE POSITIVE (NEG); PH,URINE 7.5; PROTEIN,URINE 100 mg/dL (NEG-TRACE); UROBILINOGEN,URINE 0.2 mg/dL (0.2 mg/dL)
[2017-07-12 16:12] LABS: BACTERIA,URINE MANY /HPF (0-FEW); SQUAMOUS EPITHELIAL CELL,UR OCC /LPF; WBC,URINE >40 /HPF (0-4)
[2017-07-12 16:13] LABS: YEAST,URINE PRESENT /HPF
[2017-07-12 16:16] LABS: BASO # 0.1 x10^3/uL (0.0-0.2); BASO % 1 % (0-3); EOS % 2 % (0-3); HEMATOCRIT 35.7 % (36.0-47.0); HEMOGLOBIN 11.7 g/dL (12.0-15.5); LYMPH # 1.2 x10^3/uL (1.0-4.8); LYMPH % 13 % (24-48); MEAN CORPUSCULAR HEMOGLOBIN 30 pg (25-35); MEAN CORPUSCULAR HGB CONC 33 g/dL (31-37); MEAN CORPUSCULAR VOLUME 91 fL (79-100); MONO % 5 % (0-9); NEUT % 80 % (31-73); PLATELET COUNT 216 x10^3/uL (140-400); RED BLOOD COUNT 3.94 x10^6/uL (3.50-5.40); RED CELL DISTRIBUTION WIDTH 14.2 % (11.5-14.5); WHITE BLOOD COUNT 9.3 x10^3/uL (4.0-11.0)
[2017-07-12 16:20] LABS: PROTHROMBIN TIME PATIENT 12.1 SEC (11.7-14.0)
[2017-07-12 16:33] LABS: CALCIUM 9.3 mg/dL (8.5-10.1); CREATININE 0.7 mg/dL (0.6-1.0); POTASSIUM 3.8 mmol/L (3.5-5.1)
--- NOTE | 2017-07-12 16:35 | RAD ---
ACUTE ABDOMEN SERIES Clinical Indication: vomiting Comparison: Abdominal radiographs dated 11/19/2016, chest radiograph dated 06/30/2017 Findings: The patient is rotated to the left on the chest radiograph. Normal lung volume. No focal consolidations. Normal pulmonary vasculature. No pleural effusion or pneumothorax. The cardiomediastinal silhouette is stable. Stable tortuous and atherosclerotic thoracic aorta. Nonobstructive bowel gas pattern. Large amount of stool within the rectal vault. No obvious free air. Redemonstration of numerous calcifications in left upper abdominal quadrant. No acute osseous abnormality. IMPRESSION: 1. No acute cardiopulmonary process. 2. Nonobstructive bowel gas pattern. 3. Large amount of stool within the rectal vault.
[2017-07-12 16:37] LABS: ALBUMIN 3.1 g/dL (3.4-5.0); DIRECT BILIRUBIN 0.1 mg/dL (0.0-0.2); MAGNESIUM 2.2 mg/dL (1.8-2.4); TOTAL BILIRUBIN 0.2 mg/dL (0.2-1.0); TOTAL PROTEIN 6.5 g/dL (6.4-8.2)
[2017-07-12] MEDS ORDERED: ONDANSETRON PF 4 MG/2 ML VIAL. IV ONE (16:45)
[2017-07-12] MEDS ORDERED: ACETAMINOPHEN 500 MG TABLET PO PRN (17:00)
--- NOTE | 2017-07-12 17:27 | PDOC1 ---
History and Physical Date of Admission Date of Admission DATE: 07/12/17 TIME: 17:21 Identification/Chief Complaint Chief Complaint bradycardia in SNU Problems: Source Source: Caregiver, Chart review History of Present Illness History of Present Illness Calion to me, was just here few weeks ago for CRAO dcd back to [place]. DPOA is Conrad, Pt remains full code, She frequents here for decub ulcer, would have a wound vac here but when she gets dcd they dc wound vac there. Also has indwelling salas cath bec of chronic urinary retention, and she now has a UTI again as evidence by WBC > 40, She just finished a course of PO abx,.in SNU,. She is minimally verbal to me, if she is well, she usually can carry a conversation and I have witnessed that, She is bradycardic 40s, atenolol recently dcd per brother account, I dont see any BB eye drops on her med list, Admitted with cards on board and to treat complicated UTI, HEr salas was just changed at ER Past Medical History Cardiovascular: CHF, HTN Pulmonary: No pertinent hx CENTRAL NERVOUS SYSTEM: Other Hepatobiliary: No pertinent hx Psych: Anxiety, Addictions, Schizophrenia Musculoskeletal: low back pain Renal/: Other Past Surgical History Past Surgical History: Hysterectomy, Other Family History Family History: No Significant Social History Smoke: No ALCOHOL: none Drugs: None Current Problem List Problem List Problems Medical Problems: (1) Bradycardia Status: Acute Problems: Current Medications Current Medications Current Medications Dopamine HCl/ Dextrose 250 ml @ 9.1 mls/hr 1X ONCE IV Last administered on t 16:38; Start 07/12/17 at 16:30; Stop 07/13/17 at 19:58 Ondansetron HCl (Zofran) 4 mg 1X ONCE IV ; Start 07/12/17 at 16:45; Stop at 16:46; Status DC Acetaminophen (Tylenol) 500 mg PRN Q6HRS PRN PO MILD PAIN / TEMP; Start at 17:00 Carbidopa/Levodopa (Sinemet 25/100) 1 tab BID PO ; Start 07/12/17 at 21:00 Vitamin D (Vitamin D3) 1,000 unit DAILY PO ; Start 07/13/17 at 09:00 Docusate Sodium (Colace) 100 mg BID PO ; Start 07/12/17 at 21:00 Furosemide (Lasix) 20 mg DAILY PO ; Start 07/13/17 at 09:00 Hydralazine HCl (Apresoline) 25 mg BID PO ; Start 07/12/17 at 21:00 Meclizine HCl (Antivert) 12.5 mg QID PO ; Start 07/12/17 at 17:00 Mirtazapine (Remeron) 7.5 mg QHS PO ; Start 07/12/17 at 21:00 Olanzapine (ZyPREXA) 5 mg DAILY PO ; Start 07/13/17 at 09:00 Oxycodone/ Acetaminophen (Percocet 5/325) 1 tab QID PO ; Start 07/12/17 at 17: 00 Polyethylene Glycol (miraLAX PACKET) 17 gm DAILY PO ; Start 07/13/17 at 09:00 Potassium Chloride (Klor-Con) 10 meq DAILYWBKFT PO ; Start 07/13/17 at 08:00 Ondansetron HCl (Zofran) 4 mg PRN Q8HRS PRN IV NAUSEA/VOMITING; Start at 17:00; Stop 07/13/17 at 16:59 Ceftriaxone Sodium 1 gm/ Dextrose 50 ml @ 100 mls/hr Q24H IV ; Start 07/12/17 at 17:15; Status UNV Ceftriaxone Sodium 50 ml @ 100 mls/hr 1X ONCE IV ; Start 07/12/17 at 17:30; Stop 07/12/17 at 17:59 Ceftriaxone Sodium (Rocephin) 1 gm Q24H IVP ; Start 07/13/17 at 18:00 Active Scripts Active Hydralazine Hcl 25 Mg Tablet 25 Mg PO BID 30 Days Reported Potassium Chloride 10 Meq Capsule.er 10 Meq PO DAILY Percocet 5-325 Mg Tablet (Oxycodone/Acetaminophen) 1 Each Tablet 1 Tab PO QID Mirtazapine 15 Mg Tablet 0.5 Tab PO QHS Polyethylene Glycol 3350 255 Gm Powder 17 Gm PO DAILY Meclizine Hcl 12.5 Mg Tablet 1 Tab PO QID Colace (Docusate Sodium) 100 Mg Capsule 1 Cap PO BID Tylenol (Acetaminophen) 325 Mg Tablet 325 Mg PO QID Multi-Day Plus Iron Tablet (Multivitamin/Iron/Folic Acid) 1 Each Tablet 1 Each PO Carbidopa-Levodopa 25-100 Tab (Carbidopa/Levodopa) 1 Each Tablet 1 Each PO BID Vitamin D3 (Cholecalciferol (Vitamin D3)) 1,000 Unit Tablet 1,000 Unit PO DAILY Furosemide 20 Mg Tablet 20 Mg PO DAILY Olanzapine 5 Mg Tablet 5 Mg PO DAILY Allergies Allergies: Coded Allergies: I S O L A T I O N *CONTACT* (Verified Allergy, Unknown, 06/27/17) MDRO (R) Klebsiella pneumoniae No Known Medication Allergies (Verified Allergy, Unknown, 06/27/17) ROS Review of System limited, minimally verbal Physical Exam General: No acute distress HEENT: Atraumatic, PERRLA Lungs: Normal air movement Heart: no thrills, no rubs, no gallops, no murmurs, other (bradycradic 40s) Breasts: Normal, Rt breast nml w/o mass, Lt breast nml w/o mass, Nipples normal Abdomen: Normal bowel sounds, Soft, No tenderness, No hepatosplenomegaly, No masses PELVIC: Nml ext genitalia Extremities: No clubbing, No cyanosis, No edema, Normal pulses, No tenderness/ swelling Skin: Other (grade 3-4 sacral decub) Psych/Mental Status: Mental status NL, Mood NL Vitals Vitals Vital Signs Date Time Temp Pulse Resp B/P (MAP) Pulse Ox O2 Delivery O2 Flow Rate FiO2 07/12/17 15:29 97.5 45 14 133/62 (85) 94 Room Air 97.5 Labs Labs Laboratory Tests Test 07/12/17 15:40 07/12/17 16:00 Urine Collection Type Unknown Urine Color Yellow Urine Clarity Cloudy Urine pH 7.5 Urine Specific [place] 1.020 Urine Protein 100 mg/dL (NEG-TRACE) Urine Glucose (UA) Negative mg/dL (NEG) Urine Ketones (Stick) Negative mg/dL (NEG) Urine Blood Trace (NEG) Urine Nitrite Positive (NEG) Urine Bilirubin Negative (NEG) Urine Urobilinogen Dipstick 0.2 mg/dL (0.2 mg/dL) Urine Leukocyte Esterase Large (NEG) Urine RBC 1-2 /HPF (0-2) Urine WBC >40 /HPF (0-4) Urine Squamous Epithelial Cells Occ /LPF Urine Bacteria Many /HPF (0-FEW) Urine Hyaline Casts Few /HPF Urine Mucus Marked /LPF Urine Yeast Present /HPF White Blood Count 9.3 x10^3/uL (4.0-11.0) Red Blood Count 3.94 x10^6/uL (3.50-5.40) Hemoglobin 11.7 g/dL (12.0-15.5) Hematocrit 35.7 % (36.0-47.0) Mean Corpuscular Volume 91 fL (79-100) Mean Corpuscular Hemoglobin 30 pg (25-35) Mean Corpuscular Hemoglobin Concent 33 g/dL (31-37) Red Cell Distribution Width 14.2 % (11.5-14.5) Platelet Count 216 x10^3/uL (140-400) Neutrophils (%) (Auto) 80 % (31-73) Lymphocytes (%) (Auto) 13 % (24-48) Monocytes (%) (Auto) 5 % (0-9) Eosinophils (%) (Auto) 2 % (0-3) Basophils (%) (Auto) 1 % (0-3) Neutrophils # (Auto) 7.4 x10^3uL (1.8-7.7) Lymphocytes # (Auto) 1.2 x10^3/uL (1.0-4.8) Monocytes # (Auto) 0.4 x10^3/uL (0.0-1.1) Eosinophils # (Auto) 0.1 x10^3/uL (0.0-0.7) Basophils # (Auto) 0.1 x10^3/uL (0.0-0.2) Prothrombin Time 12.1 SEC (11.7-14.0) Prothromb Time International Ratio 1.0 (0.8-1.1) Sodium Level 141 mmol/L (136-145) Potassium Level 3.8 mmol/L (3.5-5.1) Chloride Level 105 mmol/L (98-107) Carbon Dioxide Level 31 mmol/L (21-32) Anion Gap 5 (6-14) Blood Urea Nitrogen 17 mg/dL (7-20) Creatinine 0.7 mg/dL (0.6-1.0) Estimated GFR (Cockcroft-Gault) 82.0 Glucose Level 133 mg/dL (70-99) Lactic Acid Level 0.5 mmol/L (0.4-2.0) Calcium Level 9.3 mg/dL (8.5-10.1) Magnesium Level 2.2 mg/dL (1.8-2.4) Total Bilirubin 0.2 mg/dL (0.2-1.0) Direct Bilirubin 0.1 mg/dL (0.0-0.2) Aspartate Amino Transf (AST/SGOT) 34 U/L (15-37) Alanine Aminotransferase (ALT/SGPT) 55 U/L (14-59) Alkaline Phosphatase 85 U/L (46-116) Creatine Kinase 28 U/L (26-192) Creatine Kinase MB (Mass) 1.0 ng/mL (0.0-3.6) Creatine Kinase MB Relative Index 3.6 % (0-4) Troponin I Quantitative < 0.017 ng/mL (0.000-0.055) FT-Cyj-Q-Type Natriuretic Peptide 284 pg/mL (0-124) Total Protein 6.5 g/dL (6.4-8.2) Albumin 3.1 g/dL (3.4-5.0) Lipase 342 U/L (73-393) Thyroid Stimulating Hormone (TSH) 2.161 uIU/mL (0.358-3.74) Laboratory Tests Test 07/12/17 15:40 07/12/17 16:00 Urine Collection Type Unknown Urine Color Yellow Urine Clarity Cloudy Urine pH 7.5 Urine Specific [place] 1.020 Urine Protein 100 mg/dL (NEG-TRACE) Urine Glucose (UA) Negative mg/dL (NEG) Urine Ketones (Stick) Negative mg/dL (NEG) Urine Blood Trace (NEG) Urine Nitrite Positive (NEG) Urine Bilirubin Negative (NEG) Urine Urobilinogen Dipstick 0.2 mg/dL (0.2 mg/dL) Urine Leukocyte Esterase Large (NEG) Urine RBC 1-2 /HPF (0-2) Urine WBC >40 /HPF (0-4) Urine Squamous Epithelial Cells Occ /LPF Urine Bacteria Many /HPF (0-FEW) Urine Hyaline Casts Few /HPF Urine Mucus Marked /LPF Urine Yeast Present /HPF White Blood Count 9.3 x10^3/uL (4.0-11.0) Red Blood Count 3.94 x10^6/uL (3.50-5.40) Hemoglobin 11.7 g/dL (12.0-15.5) Hematocrit 35.7 % (36.0-47.0) Mean Corpuscular Volume 91 fL (79-100) Mean Corpuscular Hemoglobin 30 pg (25-35) Mean Corpuscular Hemoglobin Concent 33 g/dL (31-37) Red Cell Distribution Width 14.2 % (11.5-14.5) Platelet Count 216 x10^3/uL (140-400) Neutrophils (%) (Auto) 80 % (31-73) Lymphocytes (%) (Auto) 13 % (24-48) Monocytes (%) (Auto) 5 % (0-9) Eosinophils (%) (Auto) 2 % (0-3) Basophils (%) (Auto) 1 % (0-3) Neutrophils # (Auto) 7.4 x10^3uL (1.8-7.7) Lymphocytes # (Auto) 1.2 x10^3/uL (1.0-4.8) Monocytes # (Auto) 0.4 x10^3/uL (0.0-1.1) Eosinophils # (Auto) 0.1 x10^3/uL (0.0-0.7) Basophils # (Auto) 0.1 x10^3/uL (0.0-0.2) Prothrombin Time 12.1 SEC (11.7-14.0) Prothromb Time International Ratio 1.0 (0.8-1.1) Sodium Level 141 mmol/L (136-145) Potassium Level 3.8 mmol/L (3.5-5.1) Chloride Level 105 mmol/L (98-107) Carbon Dioxide Level 31 mmol/L (21-32) Anion Gap 5 (6-14) Blood Urea Nitrogen 17 mg/dL (7-20) Creatinine 0.7 mg/dL (0.6-1.0) Estimated GFR (Cockcroft-Gault) 82.0 Glucose Level 133 mg/dL (70-99) Lactic Acid Level 0.5 mmol/L (0.4-2.0) Calcium Level 9.3 mg/dL (8.5-10.1) Magnesium Level 2.2 mg/dL (1.8-2.4) Total Bilirubin 0.2 mg/dL (0.2-1.0) Direct Bilirubin 0.1 mg/dL (0.0-0.2) Aspartate Amino Transf (AST/SGOT) 34 U/L (15-37) Alanine Aminotransferase (ALT/SGPT) 55 U/L (14-59) Alkaline Phosphatase 85 U/L (46-116) Creatine Kinase 28 U/L (26-192) Creatine Kinase MB (Mass) 1.0 ng/mL (0.0-3.6) Creatine Kinase MB Relative Index 3.6 % (0-4) Troponin I Quantitative < 0.017 ng/mL (0.000-0.055) LN-Clr-S-Type Natriuretic Peptide 284 pg/mL (0-124) Total Protein 6.5 g/dL (6.4-8.2) Albumin 3.1 g/dL (3.4-5.0) Lipase 342 U/L (73-393) Thyroid Stimulating Hormone (TSH) 2.161 uIU/mL (0.358-3.74) VTE Prophylaxis Ordered VTE Prophylaxis Devices: Yes VTE Pharmacological Prophylaxi: Yes Assessment/Plan Assessment/Plan 1. Bradycardia 2. Recent CRAO 3. 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 COmplicated UTI 6. Chronic urinary retention 7. Dementia/encephalopathy 8. SNU resident 9. Severe PCM 10 . DYsphagia diet PLAn: Admit with cards consulted Started on dopa gtt NO Qt prolonging or AV jaspal blocking agents pls LOvenox for dvt prophy COnt rest of meds On mechanical soft in SNU HIgh fall and asp risk WOund care consult Turn q2 Urine cx and broad spectrum for complicated uTI seen at ER Dw FARZANEH Tabor MD Jul 12, 2017 17:27
[2017-07-12] MEDS: hydrALAZINE 25 MG TABLET PO SCH (21:00)
[2017-07-12] MEDS: MECLIZINE HCL 12.5 MG TABLET. PO SCH ×2 (21:00→21:39)
[2017-07-12] MEDS: oxyCODONE/APAP 5/325 1 TAB TABLET PO SCH ×2 (21:00→21:40)
[2017-07-12] MEDS: CARBIDOPA/LEVODOPA 25/100MG TABLET PO SCH (21:39)
[2017-07-12] MEDS: DOCUSATE SODIUM 100 MG CAPSULE. PO SCH (21:39)
[2017-07-12] MEDS: ENOXAPARIN 40 MG/0.4 ML SYRINGE. SQ SCH (21:40)
[2017-07-12] MEDS: MIRTAZAPINE 15 MG TABLET PO SCH (21:40)
[2017-07-12] MEDS: cefTRIAXone IV Push 1 GM VIAL. IVP SCH (21:50)
[2017-07-12] MEDS: ONDANSETRON PF 4 MG/2 ML VIAL. IV PRN (22:03)
[2017-07-13] VITALS (24 sets, daily range): BP systolic 92–145; BP diastolic 42–78
[2017-07-13 05:27] LABS: BASO # 0.1 x10^3/uL (0.0-0.2); BASO % 1 % (0-3); EOS % 0 % (0-3); HEMATOCRIT 37.4 % (36.0-47.0); HEMOGLOBIN 12.2 g/dL (12.0-15.5); LYMPH # 1.7 x10^3/uL (1.0-4.8); LYMPH % 19 % (24-48); MEAN CORPUSCULAR HEMOGLOBIN 30 pg (25-35); MEAN CORPUSCULAR HGB CONC 33 g/dL (31-37); MEAN CORPUSCULAR VOLUME 91 fL (79-100); MONO % 5 % (0-9); NEUT % 75 % (31-73); PLATELET COUNT 194 x10^3/uL (140-400); RED BLOOD COUNT 4.12 x10^6/uL (3.50-5.40); RED CELL DISTRIBUTION WIDTH 14.4 % (11.5-14.5)
[2017-07-13 05:54] LABS: CALCIUM 9.4 mg/dL (8.5-10.1); CREATININE 0.7 mg/dL (0.6-1.0); POTASSIUM 3.9 mmol/L (3.5-5.1)
--- NOTE | 2017-07-13 06:18 | EKG ---
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
[2017-07-13] MEDS: IV NORMAL SALINE 1000ML BAG 1,000 ML IV SCH ×2 (06:24→16:00)
[2017-07-13] MEDS ORDERED: POTASSIUM CHLORIDE 10 MEQ TABLET.ER. PO SCH (08:00)
[2017-07-13] MEDS: hydrALAZINE 25 MG TABLET PO SCH ×2 (08:43→21:00)
[2017-07-13] MEDS: MECLIZINE HCL 12.5 MG TABLET. PO SCH (08:43)
[2017-07-13] MEDS: oxyCODONE/APAP 5/325 1 TAB TABLET PO SCH ×4 (08:43→21:19)
[2017-07-13] MEDS: CARBIDOPA/LEVODOPA 25/100MG TABLET PO SCH ×2 (08:43→21:19)
[2017-07-13] MEDS: POLYETHYLENE GLYCOL 3350 17 GM PACKET. PO SCH (08:43)
[2017-07-13] MEDS: DOCUSATE SODIUM 100 MG CAPSULE. PO SCH ×2 (08:43→21:19)
[2017-07-13] MEDS: OLANZapine 5 MG TABLET PO SCH (08:44)
[2017-07-13] MEDS: CHOLECALCIFEROL (VITAMIN D3) 1,000 UNIT TABLET PO SCH (08:44)
[2017-07-13] MEDS ORDERED: FUROSEMIDE 20 MG TABLET PO SCH (09:00)
--- NOTE | 2017-07-13 09:01 | RAD ---
CHEST AP ONLY Clinical Indication: vomiting, aspiration precautions Comparison: Chest radiograph dated 07/12/2017 Findings: The patient is rotated to the left. Soft tissues of the head and neck obscure the left lung apex. Stable lung volume. No focal consolidations. Stable pulmonary vasculature. No pleural effusion or pneumothorax. Curvilinear opacity overlying the medial left lung apex. The cardiomediastinal silhouette and great vessels are stable. No acute osseous abnormality. IMPRESSION: 1. No acute cardiopulmonary process. 2. Curvilinear opacity overlying the medial left lung apex is likely related to skin fold. Recommend attention on follow-up.
[2017-07-13] MEDS: ONDANSETRON PF 4 MG/2 ML VIAL. IV PRN (10:37)
[2017-07-13] MEDS ORDERED: IV NORMAL SALINE 1000ML BAG 1,000 ML IV ONE ×3 (10:45→13:30)
--- NOTE | 2017-07-13 10:50 | PDOC ---
PROGRESS NOTES Chief Complaint Chief Complaint N/V/D ASSESSMENT AND PLAN: 1. NV: unclear etiology. treat symptomatically 2. Dehydration: very low U/O. IVF bolus, cont gtt. monitor lytes 3. Bradycardia: BB stopped previously. cardiology consulted 4. 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 wound care consult 5. Recent CVA: central retinal artery occlusion. cont 2ary prevention meds 6. Dysphagia: On mechanical soft in SNU. Speech eval 7. Urinary retention: chronic Casas with colonization, although UTI difficult to discern. cont broad spectrum empiric Abx 8. Bed bound/limited mobility: turning protocol 9. Prophylaxis: lovenox DNR DPOA: brother Pavan History of Present Illness History of Present Illness c/o nausea. denies pain Vitals Vitals Vital Signs Date Time Temp Pulse Resp B/P (MAP) Pulse Ox O2 Delivery O2 Flow Rate FiO2 07/13/17 10:00 50 15 133/52 (79) 98 Room Air 07/13/17 08:00 98.2 98.2 Physical Exam General: Alert, Cooperative, No acute distress Heart: Regular rate Lungs: Clear Abdomen: Normal bowel sounds, Soft, No tenderness Extremities: No clubbing, No cyanosis, No edema Skin: No significant lesion, Other (grade 3-4 sacral decub) Labs LABS Laboratory Tests Test 07/12/17 15:40 07/12/17 16:00 07/12/17 22:50 07/13/17 04:40 Urine Collection Type Unknown Urine Color Yellow Urine Clarity Cloudy Urine pH 7.5 Urine Specific [place] 1.020 Urine Protein 100 mg/dL (NEG-TRACE) Urine Glucose (UA) Negative mg/dL (NEG) Urine Ketones (Stick) Negative mg/dL (NEG) Urine Blood Trace (NEG) Urine Nitrite Positive (NEG) Urine Bilirubin Negative (NEG) Urine Urobilinogen Dipstick 0.2 mg/dL (0.2 mg/dL) Urine Leukocyte Esterase Large (NEG) Urine RBC 1-2 /HPF (0-2) Urine WBC >40 /HPF (0-4) Urine Squamous Epithelial Cells Occ /LPF Urine Bacteria Many /HPF (0-FEW) Urine Hyaline Casts Few /HPF Urine Mucus Marked /LPF Urine Yeast Present /HPF White Blood Count 9.3 x10^3/uL (4.0-11.0) 9.0 x10^3/uL (4.0-11.0) Red Blood Count 3.94 x10^6/uL (3.50-5.40) 4.12 x10^6/uL (3.50-5.40) Hemoglobin 11.7 g/dL (12.0-15.5) 12.2 g/dL (12.0-15.5) Hematocrit 35.7 % (36.0-47.0) 37.4 % (36.0-47.0) Mean Corpuscular Volume 91 fL (79-100) 91 fL (79-100) Mean Corpuscular Hemoglobin 30 pg (25-35) 30 pg (25-35) Mean Corpuscular Hemoglobin Concent 33 g/dL (31-37) 33 g/dL (31-37) Red Cell Distribution Width 14.2 % (11.5-14.5) 14.4 % (11.5-14.5) Platelet Count 216 x10^3/uL (140-400) 194 x10^3/uL (140-400) Neutrophils (%) (Auto) 80 % (31-73) 75 % (31-73) Lymphocytes (%) (Auto) 13 % (24-48) 19 % (24-48) Monocytes (%) (Auto) 5 % (0-9) 5 % (0-9) Eosinophils (%) (Auto) 2 % (0-3) 0 % (0-3) Basophils (%) (Auto) 1 % (0-3) 1 % (0-3) Neutrophils # (Auto) 7.4 x10^3uL (1.8-7.7) 6.8 x10^3uL (1.8-7.7) Lymphocytes # (Auto) 1.2 x10^3/uL (1.0-4.8) 1.7 x10^3/uL (1.0-4.8) Monocytes # (Auto) 0.4 x10^3/uL (0.0-1.1) 0.4 x10^3/uL (0.0-1.1) Eosinophils # (Auto) 0.1 x10^3/uL (0.0-0.7) 0.0 x10^3/uL (0.0-0.7) Basophils # (Auto) 0.1 x10^3/uL (0.0-0.2) 0.1 x10^3/uL (0.0-0.2) Prothrombin Time 12.1 SEC (11.7-14.0) Prothromb Time International Ratio 1.0 (0.8-1.1) Sodium Level 141 mmol/L (136-145) 143 mmol/L (136-145) Potassium Level 3.8 mmol/L (3.5-5.1) 3.9 mmol/L (3.5-5.1) Chloride Level 105 mmol/L (98-107) 106 mmol/L (98-107) Carbon Dioxide Level 31 mmol/L (21-32) 31 mmol/L (21-32) Anion Gap 5 (6-14) 6 (6-14) Blood Urea Nitrogen 17 mg/dL (7-20) 18 mg/dL (7-20) Creatinine 0.7 mg/dL (0.6-1.0) 0.7 mg/dL (0.6-1.0) Estimated GFR (Cockcroft-Gault) 82.0 82.0 Glucose Level 133 mg/dL (70-99) 101 mg/dL (70-99) Lactic Acid Level 0.5 mmol/L (0.4-2.0) Calcium Level 9.3 mg/dL (8.5-10.1) 9.4 mg/dL (8.5-10.1) Magnesium Level 2.2 mg/dL (1.8-2.4) Total Bilirubin 0.2 mg/dL (0.2-1.0) Direct Bilirubin 0.1 mg/dL (0.0-0.2) Aspartate Amino Transf (AST/SGOT) 34 U/L (15-37) Alanine Aminotransferase (ALT/SGPT) 55 U/L (14-59) Alkaline Phosphatase 85 U/L (46-116) Creatine Kinase 28 U/L (26-192) Creatine Kinase MB (Mass) 1.0 ng/mL (0.0-3.6) Creatine Kinase MB Relative Index 3.6 % (0-4) Troponin I Quantitative < 0.017 ng/mL (0.000-0.055) < 0.017 ng/mL (0.000-0.055) < 0.017 ng/mL (0.000-0.055) BF-Ybc-F-Type Natriuretic Peptide 284 pg/mL (0-124) Total Protein 6.5 g/dL (6.4-8.2) Albumin 3.1 g/dL (3.4-5.0) Lipase 342 U/L (73-393) Thyroid Stimulating Hormone (TSH) 2.161 uIU/mL (0.358-3.74) Assessment and Plan Assessmemt and Plan Problems Medical Problems: (1) Bradycardia Status: Acute Problems: MADELEINE BOND MD Jul 13, 2017 10:50
--- NOTE | 2017-07-13 12:46 | PDOC2 ---
AMBER MARIE [employer]ORATION OFFICER 07/13/17 1246: CARDIAC CONSULT DATE OF CONSULT Date of Consult DATE: 07/13/17 TIME: 12:17 REASON FOR CONSULT Reason for Consult: Bradycardia REFERRING PHYSICIAN Referring Physician: Dr. Tolliver SOURCE Source: Chart review, Patient HISTORY OF PRESENT ILLNESS HISTORY OF PRESENT ILLNESS This is a 71 yo female who presented from nursing facility secondary to lightheadedness and nausea/vomiting. HR noted to be in the 40's. Dopamine gtt was initiated in ED. Was discontinued upon arrival to the intensive car unit. Is minimally verbal. HPI mainly obtain from [facility] review. Is presently resting in bed. HR is in the upper 50's to low 60's. Denies any dizziness, diaphoresis, syncope, or SOA. HR normally runs in the 50's. Atenolol was apparently recently discontinued. PAST MEDICAL HISTORY Cardiovascular: CHF, HTN Pulmonary: No pertinent hx CENTRAL NERVOUS SYSTEM: Other (Parkinson's ) GI: GERD, Other (dysphagia- resolved ) Psych: Anxiety, Depression, Schizophrenia Musculoskeletal: Osteoarthritis Infectious disease: No pertinent hx ENT: No pertinent hx Renal/: UTI, Other (urinary retention with chronic salas) Endocrine: No pertinent hx Dermatology: Other (decub ulcer) PAST SURGICAL HISTORY Past Surgical History: Hysterectomy, Other (PEG placement and removal) FAMILY HISTORY Family History: Other (noncontributory ) SOCIAL HISTORY Smoke: No ALCOHOL: none Lives: [facility] CURRENT MEDICATIONS CURRENT MEDICATIONS Current Medications Medications (Trade) Dose Ordered Sig/Zacarias Route PRN Reason Start Time Stop Time Status Last Admin Dose Admin Dopamine HCl/ Dextrose 250 ml @ 9.1 mls/hr 1X ONCE IV 07/12/17 16:30 07/13/17 11:29 DC 07/12/17 16:38 Ondansetron HCl (Zofran) 4 mg 1X ONCE IV 07/12/17 16:45 07/12/17 16:46 DC 07/12/17 17:26 Carbidopa/Levodopa (Sinemet 25/100) 1 tab BID PO 07/12/17 21:00 07/12/17 21:39 Docusate Sodium (Colace) 100 mg BID PO 07/12/17 21:00 07/12/17 21:39 Meclizine HCl (Antivert) 12.5 mg QID PO 07/12/17 17:00 07/13/17 10:47 DC 07/12/17 21:39 Mirtazapine (Remeron) 7.5 mg QHS PO 07/12/17 21:00 07/12/17 21:40 Oxycodone/ Acetaminophen (Percocet 5/325) 1 tab QID PO 07/12/17 17:00 07/12/17 21:40 Ondansetron HCl (Zofran) 4 mg PRN Q8HRS PRN IV NAUSEA/VOMITING 07/12/17 17:00 07/13/17 16:59 07/13/17 10:37 Ceftriaxone Sodium (Rocephin) 1 gm Q24H IVP 07/12/17 22:00 07/12/17 21:50 Enoxaparin Sodium (Lovenox 40mg Syringe) 40 mg Q24H SQ 07/12/17 21:00 07/12/17 21:40 Sodium Chloride 1,000 ml @ 100 mls/hr Q10H IV 07/13/17 06:00 07/13/17 06:24 Sodium Chloride 1,000 ml @ 1,000 mls/hr 1X ONCE IV 07/13/17 10:45 07/13/17 11:44 DC 07/13/17 10:37 ALLERGIES ALLERGIES: Coded Allergies: I S O L A T I O N *CONTACT* (Verified Allergy, Unknown, 06/27/17) MDRO (R) Klebsiella pneumoniae No Known Medication Allergies (Verified Allergy, Unknown, 06/27/17) ROS Review of System 14 point ROS conducted with pertinent positives noted above in HPI. PHYSICAL EXAM General: Alert, Cooperative, No acute distress HEENT: Atraumatic, Mucous membr. moist/pink Lungs: Clear to auscultation, Normal air movement Heart: Regular rate (tele SR/SB), Normal S1, Normal S2, Other (2/6 systolic murmur) Abdomen: Soft, No tenderness Extremities: No edema Skin: Other (sacral decub ) Neuro: Sensation intact MUSCULOSKELETAL: Osteoarthritic changes both hands VITALS VITALS Vital Signs Date Time Temp Pulse Resp B/P (MAP) Pulse Ox O2 Delivery O2 Flow Rate FiO2 07/13/17 12:00 98.7 56 16 115/53 (73) 96 Room Air 98.7 LABS Lab: Laboratory Tests Test 07/12/17 15:40 07/12/17 16:00 07/12/17 22:50 07/13/17 04:40 Urine Collection Type Unknown Urine Color Yellow Urine Clarity Cloudy Urine pH 7.5 Urine Specific [place] 1.020 Urine Protein 100 mg/dL (NEG-TRACE) Urine Glucose (UA) Negative mg/dL (NEG) Urine Ketones (Stick) Negative mg/dL (NEG) Urine Blood Trace (NEG) Urine Nitrite Positive (NEG) Urine Bilirubin Negative (NEG) Urine Urobilinogen Dipstick 0.2 mg/dL (0.2 mg/dL) Urine Leukocyte Esterase Large (NEG) Urine RBC 1-2 /HPF (0-2) Urine WBC >40 /HPF (0-4) Urine Squamous Epithelial Cells Occ /LPF Urine Bacteria Many /HPF (0-FEW) Urine Hyaline Casts Few /HPF Urine Mucus Marked /LPF Urine Yeast Present /HPF White Blood Count 9.3 x10^3/uL (4.0-11.0) 9.0 x10^3/uL (4.0-11.0) Red Blood Count 3.94 x10^6/uL (3.50-5.40) 4.12 x10^6/uL (3.50-5.40) Hemoglobin 11.7 g/dL (12.0-15.5) 12.2 g/dL (12.0-15.5) Hematocrit 35.7 % (36.0-47.0) 37.4 % (36.0-47.0) Mean Corpuscular Volume 91 fL (79-100) 91 fL (79-100) Mean Corpuscular Hemoglobin 30 pg (25-35) 30 pg (25-35) Mean Corpuscular Hemoglobin Concent 33 g/dL (31-37) 33 g/dL (31-37) Red Cell Distribution Width 14.2 % (11.5-14.5) 14.4 % (11.5-14.5) Platelet Count 216 x10^3/uL (140-400) 194 x10^3/uL (140-400) Neutrophils (%) (Auto) 80 % (31-73) 75 % (31-73) Lymphocytes (%) (Auto) 13 % (24-48) 19 % (24-48) Monocytes (%) (Auto) 5 % (0-9) 5 % (0-9) Eosinophils (%) (Auto) 2 % (0-3) 0 % (0-3) Basophils (%) (Auto) 1 % (0-3) 1 % (0-3) Neutrophils # (Auto) 7.4 x10^3uL (1.8-7.7) 6.8 x10^3uL (1.8-7.7) Lymphocytes # (Auto) 1.2 x10^3/uL (1.0-4.8) 1.7 x10^3/uL (1.0-4.8) Monocytes # (Auto) 0.4 x10^3/uL (0.0-1.1) 0.4 x10^3/uL (0.0-1.1) Eosinophils # (Auto) 0.1 x10^3/uL (0.0-0.7) 0.0 x10^3/uL (0.0-0.7) Basophils # (Auto) 0.1 x10^3/uL (0.0-0.2) 0.1 x10^3/uL (0.0-0.2) Prothrombin Time 12.1 SEC (11.7-14.0) Prothromb Time International Ratio 1.0 (0.8-1.1) Sodium Level 141 mmol/L (136-145) 143 mmol/L (136-145) Potassium Level 3.8 mmol/L (3.5-5.1) 3.9 mmol/L (3.5-5.1) Chloride Level 105 mmol/L (98-107) 106 mmol/L (98-107) Carbon Dioxide Level 31 mmol/L (21-32) 31 mmol/L (21-32) Anion Gap 5 (6-14) 6 (6-14) Blood Urea Nitrogen 17 mg/dL (7-20) 18 mg/dL (7-20) Creatinine 0.7 mg/dL (0.6-1.0) 0.7 mg/dL (0.6-1.0) Estimated GFR (Cockcroft-Gault) 82.0 82.0 Glucose Level 133 mg/dL (70-99) 101 mg/dL (70-99) Lactic Acid Level 0.5 mmol/L (0.4-2.0) Calcium Level 9.3 mg/dL (8.5-10.1) 9.4 mg/dL (8.5-10.1) Magnesium Level 2.2 mg/dL (1.8-2.4) Total Bilirubin 0.2 mg/dL (0.2-1.0) Direct Bilirubin 0.1 mg/dL (0.0-0.2) Aspartate Amino Transf (AST/SGOT) 34 U/L (15-37) Alanine Aminotransferase (ALT/SGPT) 55 U/L (14-59) Alkaline Phosphatase 85 U/L (46-116) Creatine Kinase 28 U/L (26-192) Creatine Kinase MB (Mass) 1.0 ng/mL (0.0-3.6) Creatine Kinase MB Relative Index 3.6 % (0-4) Troponin I Quantitative < 0.017 ng/mL (0.000-0.055) < 0.017 ng/mL (0.000-0.055) < 0.017 ng/mL (0.000-0.055) FF-Zaa-Z-Type Natriuretic Peptide 284 pg/mL (0-124) Total Protein 6.5 g/dL (6.4-8.2) Albumin 3.1 g/dL (3.4-5.0) Lipase 342 U/L (73-393) Thyroid Stimulating Hormone (TSH) 2.161 uIU/mL (0.358-3.74) ASSESSMENT/PLAN ASSESSMENT/PLAN 1. Bradycardia; presently asymptomatic. No significant pauses noted on tele 2. Hypertension 3. UTI 4. Urinary retention 5. Recent CVA 6. Decub ulcer Recommendations Avoid AV jaspal blocking agents Monitor telemetry Supportive care No acute indication for PPM at this time Could consider outpatient event monitor Problems: ALIYAH CABEZAS MD 07/13/17 1711: CARDIAC CONSULT ALLERGIES ALLERGIES: Coded Allergies: I S O L A T I O N *CONTACT* (Verified Allergy, Unknown, 06/27/17) MDRO (R) Klebsiella pneumoniae No Known Medication Allergies (Verified Allergy, Unknown, 06/27/17) ASSESSMENT/PLAN ASSESSMENT/PLAN Patient seen and examined. Agree with above nurse practitioner note. Problems: AMBER MARIE APRN Jul 13, 2017 12:46 ALIYAH CABEZAS MD Jul 13, 2017 17:11
[2017-07-13] MEDS: MIRTAZAPINE 15 MG TABLET PO SCH (21:19)
[2017-07-13] MEDS: LACTOBACILLUS RHAMNOSUS GG 1 CAPSULE. PO SCH (21:19)
[2017-07-13] MEDS: ENOXAPARIN 40 MG/0.4 ML SYRINGE. SQ SCH (21:19)
[2017-07-13] MEDS: cefTRIAXone IV Push 1 GM VIAL. IVP SCH (21:20)
[2017-07-14] VITALS (15 sets, daily range): BP systolic 106–140; BP diastolic 43–61
[2017-07-14] MEDS: IV NORMAL SALINE 1000ML BAG 1,000 ML IV SCH (01:43)
[2017-07-14 06:36] LABS: BASO # 0.1 x10^3/uL (0.0-0.2); BASO % 1 % (0-3); EOS % 1 % (0-3); HEMOGLOBIN 10.2 g/dL (12.0-15.5); LYMPH # 1.8 x10^3/uL (1.0-4.8); LYMPH % 32 % (24-48); MEAN CORPUSCULAR HEMOGLOBIN 30 pg (25-35); MEAN CORPUSCULAR HGB CONC 32 g/dL (31-37); MEAN CORPUSCULAR VOLUME 92 fL (79-100); MONO % 5 % (0-9); NEUT % 61 % (31-73); PLATELET COUNT 173 x10^3/uL (140-400); RED BLOOD COUNT 3.47 x10^6/uL (3.50-5.40); RED CELL DISTRIBUTION WIDTH 14.7 % (11.5-14.5); WHITE BLOOD COUNT 5.8 x10^3/uL (4.0-11.0)
[2017-07-14 07:06] LABS: CALCIUM 8.6 mg/dL (8.5-10.1); CREATININE 0.5 mg/dL (0.6-1.0); GFR 120.9; POTASSIUM 3.3 mmol/L (3.5-5.1)
[2017-07-14] MEDS: OLANZapine 5 MG TABLET PO SCH (08:46)
[2017-07-14] MEDS: LACTOBACILLUS RHAMNOSUS GG 1 CAPSULE. PO SCH ×2 (08:46→22:48)
[2017-07-14] MEDS: POLYETHYLENE GLYCOL 3350 17 GM PACKET. PO SCH (08:47)
[2017-07-14] MEDS: hydrALAZINE 25 MG TABLET PO SCH ×2 (08:47→22:49)
[2017-07-14] MEDS: CHOLECALCIFEROL (VITAMIN D3) 1,000 UNIT TABLET PO SCH (08:48)
[2017-07-14] MEDS: CARBIDOPA/LEVODOPA 25/100MG TABLET PO SCH ×2 (08:48→22:48)
[2017-07-14] MEDS: DOCUSATE SODIUM 100 MG CAPSULE. PO SCH ×2 (08:48→22:48)
[2017-07-14] MEDS: oxyCODONE/APAP 5/325 1 TAB TABLET PO SCH ×4 (08:48→22:49)
[2017-07-14] MEDS: POTASSIUM CL 20MEQ-0.45% NACL 1,000 ML IV SCH ×2 (10:40→22:06)
--- NOTE | 2017-07-14 17:56 | PDOC ---
PROGRESS NOTES Chief Complaint Chief Complaint N/V/D ASSESSMENT AND PLAN: 1. NV: unclear etiology. treat symptomatically 2. Dehydration: very low U/O, improved with mult IVF boluses, cont gtt. monitor lytes. on thickened liquids, unable to help herself to PO fluids - needs close monitoring of PO intake. lasix stopped 3. Bradycardia: BB stopped previously. HR currently stable. appreciate cardiology input; no indication for pacer. consider O/P holter monitor 4. Stage 4 decub: on wound vac L buttock. wound care 5. Recent CVA: central retinal artery occlusion. cont 2ary prevention meds 6. Dysphagia: On mechanical soft in SNU. Speech eval 7. Urinary retention: chronic Casas with colonization, although UTI difficult to discern. cont broad spectrum empiric Abx; cult pending 8. Bed bound/limited mobility: turning protocol 9. Prophylaxis: lovenox 10. Dispo: back to [place] in AM DNR DPOA: brother Pavan History of Present Illness History of Present Illness no nausea, thirsty. Vitals Vitals Vital Signs Date Time Temp Pulse Resp B/P (MAP) Pulse Ox O2 Delivery O2 Flow Rate FiO2 07/14/17 16:00 99.0 57 16 121/50 (73) 92 Room Air 99.0 Physical Exam General: Alert, Cooperative, No acute distress Heart: Regular rate (borderline sasha), Other (2/6 systolic murmur) Lungs: Clear Abdomen: Soft, No tenderness Extremities: No edema Skin: Other (sacral decub with wound vac in place) Labs LABS Laboratory Tests Test 07/14/17 05:15 White Blood Count 5.8 x10^3/uL (4.0-11.0) Red Blood Count 3.47 x10^6/uL (3.50-5.40) Hemoglobin 10.2 g/dL (12.0-15.5) Hematocrit 32.0 % (36.0-47.0) Mean Corpuscular Volume 92 fL (79-100) Mean Corpuscular Hemoglobin 30 pg (25-35) Mean Corpuscular Hemoglobin Concent 32 g/dL (31-37) Red Cell Distribution Width 14.7 % (11.5-14.5) Platelet Count 173 x10^3/uL (140-400) Neutrophils (%) (Auto) 61 % (31-73) Lymphocytes (%) (Auto) 32 % (24-48) Monocytes (%) (Auto) 5 % (0-9) Eosinophils (%) (Auto) 1 % (0-3) Basophils (%) (Auto) 1 % (0-3) Neutrophils # (Auto) 3.6 x10^3uL (1.8-7.7) Lymphocytes # (Auto) 1.8 x10^3/uL (1.0-4.8) Monocytes # (Auto) 0.3 x10^3/uL (0.0-1.1) Eosinophils # (Auto) 0.0 x10^3/uL (0.0-0.7) Basophils # (Auto) 0.1 x10^3/uL (0.0-0.2) Sodium Level 146 mmol/L (136-145) Potassium Level 3.3 mmol/L (3.5-5.1) Chloride Level 113 mmol/L (98-107) Carbon Dioxide Level 24 mmol/L (21-32) Anion Gap 9 (6-14) Blood Urea Nitrogen 13 mg/dL (7-20) Creatinine 0.5 mg/dL (0.6-1.0) Estimated GFR (Cockcroft-Gault) 120.9 Glucose Level 69 mg/dL (70-99) Calcium Level 8.6 mg/dL (8.5-10.1) Nutrition Consultation Dietary Evaluation: Recommendations by RD: Increase Calorie Intake, Protein supplementation Comments: Will add Magic Cup TID REC MVI, Vit C Expected Outcomes/Goals: PO intake to meet > 75% est needs Interpretation of weight loss: >10% in 6 months Malnutrition Findings: Food and Nutrition Intake (Mod: <75% est energy req 7days Body Fat Depletion (Non Severe: Mild Depletion Weight Status: Appropriate MADELEINE BOND MD Jul 14, 2017 17:56
[2017-07-14] MEDS: ENOXAPARIN 40 MG/0.4 ML SYRINGE. SQ SCH (22:48)
[2017-07-14] MEDS: cefTRIAXone IV Push 1 GM VIAL. IVP SCH (22:50)
[2017-07-14] MEDS: MIRTAZAPINE 15 MG TABLET PO SCH (22:52)
[2017-07-15 03:00] VITALS: BP 133/91
[2017-07-15 06:56] LABS: BASO % 1 % (0-3); EOS % 1 % (0-3); HEMATOCRIT 32.3 % (36.0-47.0); HEMOGLOBIN 10.6 g/dL (12.0-15.5); LYMPH # 2.3 x10^3/uL (1.0-4.8); LYMPH % 34 % (24-48); MEAN CORPUSCULAR HEMOGLOBIN 30 pg (25-35); MEAN CORPUSCULAR HGB CONC 33 g/dL (31-37); MEAN CORPUSCULAR VOLUME 90 fL (79-100); MONO % 7 % (0-9); NEUT % 57 % (31-73); PLATELET COUNT 184 x10^3/uL (140-400); RED BLOOD COUNT 3.58 x10^6/uL (3.50-5.40); RED CELL DISTRIBUTION WIDTH 14.9 % (11.5-14.5); WHITE BLOOD COUNT 6.8 x10^3/uL (4.0-11.0)
[2017-07-15 07:00] VITALS: BP 118/81
[2017-07-15 07:07] LABS: CREATININE 0.5 mg/dL (0.6-1.0); GFR 120.9; POTASSIUM 3.8 mmol/L (3.5-5.1)
[2017-07-15] MEDS: POTASSIUM CL 20MEQ-0.45% NACL 1,000 ML IV SCH (08:30)
[2017-07-15] MEDS: DOCUSATE SODIUM 100 MG CAPSULE. PO SCH (08:31)
[2017-07-15] MEDS: POLYETHYLENE GLYCOL 3350 17 GM PACKET. PO SCH (08:31)
[2017-07-15] MEDS: CHOLECALCIFEROL (VITAMIN D3) 1,000 UNIT TABLET PO SCH (08:31)
[2017-07-15] MEDS: oxyCODONE/APAP 5/325 1 TAB TABLET PO SCH ×2 (08:31→12:59)
[2017-07-15] MEDS: OLANZapine 5 MG TABLET PO SCH (08:32)
[2017-07-15] MEDS: hydrALAZINE 25 MG TABLET PO SCH (08:32)
[2017-07-15] MEDS: LACTOBACILLUS RHAMNOSUS GG 1 CAPSULE. PO SCH (08:32)
[2017-07-15] MEDS: CARBIDOPA/LEVODOPA 25/100MG TABLET PO SCH (08:32)
[2017-07-15] MEDS ORDERED: CEFD300C PO (10:00)
--- NOTE | 2017-07-15 10:11 | PDOC3 ---
Discharge Summary [facility] Date of Admission: Jul 12, 2017 Discharge Date: Jul 15, 2017 Admitting Diagnosis Nausea and vomiting Suspected acute UTI Problems: Final Diagnosis Problems Medical Problems: (1) Bradycardia Status: Acute 1. Nausea and vomiting 2. Dehydration 3. Bradycardia 4. Stage 4 decub 5. Recent CVA: central retinal artery occlusion. 6. Dysphagia 7. Urinary retention: chronic Casas with colonization, although UTI difficult to discern 8. Bed bound/limited mobility DNR DPOA: brother Pavan CONSULTS none Procedures none Brief Hospital Course Ms. Brothers is a 71 old female who was admitted from a [facility] with nausea and vomiting. Clinically, her condition has improved, and she was able to tolerate breakfast this morning. She was also treated with an empiric IV antibiotic for a suspected UTI. She will complete a course of antibiotics as outpatient. She is medically stable for discharge back to the [facility]. d/w nurse Problems: (1) Nausea & vomiting CONDITION AT DISCHARGE: Improved, Stable Diet dysphagia Scheduled Acetaminophen (Tylenol), 325 MG PO QID, (Reported) Carbidopa/Levodopa (Carbidopa-Levodopa 25-100 Tab), 1 EACH PO BID, (Reported) Cefdinir (Cefdinir), 1 CAP PO BID Cholecalciferol (Vitamin D3) (Vitamin D3), 1,000 UNIT PO DAILY, (Reported) Docusate Sodium (Colace), 1 CAP PO BID, (Reported) Furosemide (Furosemide), 20 MG PO DAILY, (Reported) Hydralazine Hcl (Hydralazine Hcl), 25 MG PO BID Meclizine Hcl (Meclizine Hcl), 1 TAB PO QID, (Reported) Mirtazapine (Mirtazapine), 0.5 TAB PO QHS, (Reported) Olanzapine (Olanzapine), 5 MG PO DAILY, (Reported) Oxycodone/Apap 5-325 (Percocet 5-325 Mg Tablet), 1 TAB PO QID, (Reported) Polyethylene Glycol 3350 (Polyethylene Glycol 3350), 17 GM PO DAILY, (Reported) Potassium Chloride (Potassium Chloride), 10 MEQ PO DAILY, (Reported) Miscellaneous Medications Multivitamin/Iron/Folic Acid (Multi-Day Plus Iron Tablet), 1 EACH PO, (Reported) Follow Up with [facility] provider Problem Qualifiers (1) Nausea & vomiting: Vomiting type: unspecified EDILSON SANFORD MD Jul 15, 2017 10:11
[2017-07-15 11:00] VITALS: BP 141/76
== END 2017-07-15 14:56 | disposition home or self-care (01) | DRG 70 ==
LOC: ER 15:29 → 1 WEST ICU 17:59 → 5 NORTH 07-14 17:03
PROVIDERS: ADMIT Internal Medicine; ATTEND Internal Medicine
DX: G93.40 Encephalopathy, unspecified (principal); E43 Unspecified severe protein-calorie malnutrition; I11.0 Hypertensive heart disease with heart failure; L89.94 Pressure ulcer of unspecified site, stage 4; G20 Parkinson's disease; I50.9 Heart failure, unspecified; F03.90 Unspecified dementia, unspecified severity, without behavioral disturbance, psychotic disturbance, mood disturbance, and anxiety; N39.0 Urinary tract infection, site not specified; R13.10 Dysphagia, unspecified; R00.1 Bradycardia, unspecified; E86.0 Dehydration; F20.9 Schizophrenia, unspecified; K21.9 Gastro-esophageal reflux disease without esophagitis; Z66 Do not resuscitate; Z74.01 Bed confinement status; Z86.73 Personal history of transient ischemic attack (TIA), and cerebral infarction without residual deficits; Z90.710 Acquired absence of both cervix and uterus; F32.9 Major depressive disorder, single episode, unspecified; F41.9 Anxiety disorder, unspecified; M19.90 Unspecified osteoarthritis, unspecified site; Z93.1 Gastrostomy status; Z88.8 Allergy status to other drugs, medicaments and biological substances; Z91.041 Radiographic dye allergy status; Z68.23 Body mass index [BMI] 23.0-23.9, adult
CPT/HCPCS: 36415; 71010; 74022; 80048; 80076; 81001; 82553; 83605; 83690; 83735; 83880; 84443; 84484; 85025; 85610; 87086; 87641; 93005; 96365; 96366; 96375; J0696; J1265; J1650; J2405; J7030; J8597; 92526; 92610; 99285-25